=== PATIENT | female | born 1955 | race African-American/Black ===

== ENCOUNTER 2017-12-27 19:58 | Observation (INO) | payer MEDICAID ==
--- NOTE | 2017-12-27 20:20 | RAD REPORT ---
EXAM DESCRIPTION: RAD - Chest Single View - 12/27/2017 8:15 pm CLINICAL HISTORY: COPD, weakness, flu-like symptoms COMPARISON: November 2015 TECHNIQUE: AP portable chest image was obtained 2010 hours . FINDINGS: Interstitial lung disease is evident similar to the comparison. No peripheral mass or cons olidation. Acute failure is not suspected. Heart and vasculature are normal. No measurable pleural ef fusion and no pneumothorax. No gross bony abnormality seen. No acute aortic findings suspected. IMPRESSION: Chronic interstitial lung disease similar to prior study. No acute finding.
[2017-12-27 20:53] LABS: Urine Blood TRACE (NEG); Urine Glucose NEGATIVE (NEG); Urine Protein NEGATIVE (NEG); Urine Specific Gravity 1.015 (1.005-1.030); Urine pH 8.5 (5.0-7.0)
[2017-12-27 20:56] LABS: Absolute Lymphocytes (CBC) 1.1 K/uL (0.7-4.9); Absolute Monocytes 0.7 K/uL (0.1-1.3); Basophils % 0.4 % (0-1.3); Eosinophils % 2.6 % (0-4.4); Hematocrit 34.7 % (36.0-45.0); Lymphocytes % 18.6 % (15.3-44.8); MCH 27.6 pg (27.0-35.0); MPV 9.5 fL (7.6-11.3); RBC Red Blood Cell Count 3.85 M/uL (3.86-4.86)
[2017-12-27 21:05] LABS: Glucose Level 131 mg/dL (65-120); Lipase 18 U/L (22-51)
[2017-12-27] MEDS ORDERED: METHYLPREDNISOLONE 125 MG INJ ONE (21:05)
[2017-12-27 21:06] LABS: Urine Bacteria <20 /HPF (<20); Urine Culture Reflex Order NOT NEEDED; Urine RBC <5 /HPF (NONE SEEN)
[2017-12-27] MEDS ORDERED: LEVALBUTEROL 1.25 MG/3 ML NEB ONE (21:06)
[2017-12-27 21:11] LABS: ALT/SGPT 14 IU/L (10-60); AST/SGOT 15 IU/L (10-42); Alkaline Phosphatase 57 IU/L (42-121); BUN Blood Urea Nitrogen 6 mg/dL (6-20); Bilirubin Direct 0.1 mg/dL (0-0.2); Bilirubin Total 0.5 mg/dL (0.3-1.2); Protein, Total 7.5 g/dL (6.0-8.3)
[2017-12-27 21:35] LABS: Potassium 3.5 mEq/L (3.6-5.0); Sodium Level 142 mEq/L (135-145)
[2017-12-27 21:39] LABS: Bicarbonate 54 mEq/L (21-31)
[2017-12-27] MEDS ORDERED: NA CHLORIDE 0.9% 500 ML ONE (22:59)
[2017-12-27] MEDS ORDERED: CEFTRIAXONE 1 GM/NS 50 ML 1 GM/50 ML BAG IV SCH (23:00)
--- NOTE | 2017-12-27 23:02 | EDPHYS ---
Physician Documentation [facility] Name: Mila Whiting Age: 62 yrs Sex: Female : 1955 Arrival Date: 12/27/2017 Time: 20:03 Bed 27 Private MD: ED Physician Stephan Estes HPI: 12/27 20:06 This 62 yrs old Black Female presents to ER via Unassigned with complaints of rn generalized weakness, abd pain, diarrhea. 20:06 Reports 2 days of generalized weakness, abd cramping, diarrhea, non-bloody, + chills, rn reports COPD. . Onset: The symptoms/episode began/occurred 2 day(s) ago. Severity of symptoms: At their worst the symptoms were mild in the emergency department the symptoms are unchanged. The patient has experienced similar episodes in the past. The patient has not recently seen a physician. Historical: - Allergies: 20:12 liquid magnesium; bb 20:12 Stadol; bb - Home Meds: 20:12 alprazolam 1 mg Oral tab 1 tab 3 times per day [Active]; amlodipine 5 mg tab 1 tab once bb daily [Active]; prednisone 10 mg oral tab [Active]; metoprolol tartrate 50 mg Oral tab 1 tab 2 times per day [Active]; Proventil Inhl [Active]; fluticasone inhalation inhalation [Active]; promethazine-codeine 6.25-10 mg/5 mL Oral syrp 5 mL every 4 hours [Active]; Butrans transdermal transdermal [Active]; DuoNeb 0.5 mg-3 mg(2.5 mg base)/3 mL Inhl nebu [Active]; - PMHx: 20:12 acid reflux; Anxiety; COPD; Hypertension; bb - PSHx: 20:12 Cholecystectomy; Hernia repair; bb - Immunization history:: Adult Immunizations unknown. - Social history:: Smoking status: Patient/guardian denies using tobacco. - Family history:: not pertinent. - Hospitalizations: : No recent hospitalization is reported. 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 Exam: 20:06 Constitutional: This is a well developed, well nourished patient who is awake, alert, rn and in no acute distress. Head/Face: Normocephalic, atraumatic. Eyes: Pupils equal round and reactive to light, extra-ocular motions intact. Lids and lashes normal. Conjunctiva and sclera are non-icteric and not injected. Cornea within normal limits. Periorbital areas with no swelling, redness, or edema. ENT: dry MM, no stridor Neck: Trachea midline, no thyromegaly or masses palpated, and no cervical lymphadenopathy. Supple, full range of motion without nuchal rigidity, or vertebral point tenderness. No Meningismus. Cardiovascular: Regular rate and rhythm with a normal S1 and S2. No gallops, murmurs, or rubs. Normal PMI, no JVD. No pulse deficits. Respiratory: mild tachypnea, faint exp wheezing, no retractions Abdomen/GI: soft, + small superior Vital Signs: 19:55 BP 172 / 96; Pulse 112; Resp 22 S; Temp 99.1(O); Pulse Ox 100% on 5 lpm NC; Weight bb 78.02 kg (R); Height 5 ft. 1 in. (154.94 cm) (R); 21:49 BP 163 / 91; Pulse 114; Resp 22; Pulse Ox 99% on 5 lpm NC; rk2 23:15 BP 146 / 79; Pulse 103; Resp 20; Pulse Ox 99% on R/A; rk2 19:55 Body Mass Index 32.50 (78.02 kg, 154.94 cm) bb MDM: 20:03 Patient medically screened. rn 22:59 Data reviewed: vital signs, nurses notes, lab test result(s), radiologic studies, CT rn scan, and as a result, I will admit patient. Counseling: I had a detailed discussion with the patient and/or guardian regarding: the historical points, exam findings, and any diagnostic results supporting the discharge/admit diagnosis, lab results, radiology results, the need for further work-up and treatment in the hospital. Response to treatment: the patient's symptoms have mildly improved after treatment, and as a result, I will admit patient. Admission orders: after a detailed discussion of the patient's condition and case, the admit orders are written by me. ED course: Pt still tachycardic, weak, + non-bloody diarrhea, no acute findings on ct abdomen, will obs overnight in hospital to Dr. Krishnan.. 12/27 20:04 Order name: Blood Culture Adult (2) 12/27 20:04 Order name: BMP; Complete Time: 21:47 rn 12/27 20:04 Order name: BNP; Complete Time: 21:47 rn 12/27 20:04 Order name: CBC with Diff; Complete Time: 21:12/27 20:04 Order name: Hepatic Function; Complete Time: :47 12/27 20:04 Order name: Lipase; Complete Time: :47 12/27 20:04 Order name: XRAY CXR (1 view); Complete Time: 20:30 12/27 20:04 Order name: Troponin (emerg Dept Use Only); Complete Time: 21:12/27 20:04 Order name: Urine Culture 12/27 20:04 Order name: Urine Microscopic Only; Complete Time: 21:12/27 20:04 Order name: Flu; Complete Time: :47 12/27 20:04 Order name: Procalcitonin; Complete Time: :47 12/27 20:05 Order name: CT Abd/Pelvis - W/Contrast 12/27 20:52 Order name: Urine Dipstick--Ancillary (enter results); Complete Time: 20:54 rg2 12/27 20:04 Order name: EKG; Complete Time: 20:05 12/27 20:04 Order name: Cardiac monitoring; Complete Time: 20:36 12/27 20:04 Order name: EKG - Nurse/Tech; Complete Time: 21:25 12/27 20:04 Order name: IV Saline Lock; Complete Time: 20:36 12/27 20:04 Order name: Labs collected and sent; Complete Time: 20:36 12/27 20:04 Order name: O2 Per Protocol; Complete Time: 20:36 12/27 20:04 Order name: O2 Sat Monitoring; Complete Time: 20:36 12/27 20:04 Order name: Urine Dipstick-Ancillary (obtain specimen); Complete Time: 20:51 rn Administered Medications: 21:16 Drug: SOLU-Medrol 125 mg Route: IVP; Site: left antecubital; 12/28 00:42 Follow up: Response: No adverse reaction rk2 12/27 21:16 Drug: Xopenex (3) 1.25 mg Route: Inhalation; 12/28 00:42 Follow up: Response: No adverse reaction rk2 12/27 23:07 Drug: NS 0.9% 500 ml Route: IV; Rate: bolus; Site: left antecubital; rk2 12/28 00:00 Follow up: Response: No adverse reaction; IV Status: Completed infusion rk2 Disposition: 12/27/17 23:01 Hospitalization ordered by Matt Krishnan for Observation. Preliminary diagnosis are Diarrhea, unspecified, Weakness, Dehydration. - Bed requested for Telemetry/MedSurg (observation). - Status is Observation. rk2 - Condition is Stable. - Problem is new. - Symptoms have improved. UTI on Admission? No Signatures: Dispatcher [employer] EDMargie Mccord RN RN bb Nieto, Roman, MD MD rn Kidder, Rhonda, RN RN rk2
--- NOTE | 2017-12-27 23:02 | ER ---
Nurse's Notes [facility] Name: Mila Whiting Age: 62 yrs Sex: Female : 1955 Arrival Date: 12/27/2017 Time: 20:03 Bed 27 Private MD: Diagnosis: Diarrhea, unspecified;Weakness;Dehydration Presentation: 12/27 19:50 Presenting complaint: EMS states: they were toned out for report of pt feeling general bb weakness and flu-like symptoms. Transition of care: patient was not received from another setting of care. Onset of symptoms was December 25, 2017. Initial Sepsis Screen: Does the patient meet any 2 criteria? Altered Mental Status. HR > 90 bpm. Does the patient have a suspected source of infection? No. Patient's initial sepsis screen is negative. Care prior to arrival: Glucose check: 134. 19:50 Method Of Arrival: EMS: [facility] bb 19:50 Acuity: CRISTY 3 bb Triage Assessment: 19:55 General: Appears in no apparent distress. obese, Behavior is calm, cooperative. rk2 19:55 Pain: Complains of pain in ABD pain only on palpation. Neuro: Level of Consciousness is rk2 alert, obeys commands, Oriented to person, place, situation. Cardiovascular: Rhythm is regular. Respiratory: Reports cough that is productive, Airway is patent Respiratory effort is even, unlabored, Respiratory pattern is regular, symmetrical. GI: Abdomen is obese. Derm: Skin is pink, warm \T\ dry. Historical: - Allergies: 20:12 liquid magnesium; bb 20:12 Stadol; bb - Home Meds: 20:12 alprazolam 1 mg Oral tab 1 tab 3 times per day [Active]; amlodipine 5 mg tab 1 tab once bb daily [Active]; prednisone 10 mg oral tab [Active]; metoprolol tartrate 50 mg Oral tab 1 tab 2 times per day [Active]; Proventil Inhl [Active]; fluticasone inhalation inhalation [Active]; promethazine-codeine 6.25-10 mg/5 mL Oral syrp 5 mL every 4 hours [Active]; Butrans transdermal transdermal [Active]; DuoNeb 0.5 mg-3 mg(2.5 mg base)/3 mL Inhl nebu [Active]; - PMHx: 20:12 acid reflux; Anxiety; COPD; Hypertension; bb - PSHx: 20:12 Cholecystectomy; Hernia repair; bb - Immunization history:: Adult Immunizations unknown. - Social history:: Smoking status: Patient/guardian denies using tobacco. - Family history:: not pertinent. - Hospitalizations: : No recent hospitalization is reported. Screenin:55 Abuse screen: Denies threats or abuse. rk2 19:55 Nutritional screening: No deficits noted. Tuberculosis screening: No symptoms or risk rk2 factors identified. Fall Risk Secondary diagnosis (15 points) Ambulatory Aid- Crutches/Cane/Walker (15 pts). Gait- Weak (10 pts.). Mental Status- Overestimates/Forgets Limitations (15 pts.). Assessment: 22:10 Reassessment: Pt. taken to CT on stretcher by tech. rk2 22:25 Reassessment: Pt. returned from CT. rk2 22:38 Reassessment: Pt. appears to be sleeping in room \T\ this time... appears to be in no rk2 obvious distress. No needs voiced. 12/28 00:33 Reassessment: called report to receiving CARLOS Wilson. Pt. Iv noted to have infiltrated, rk2 removed. Vital Signs: 12/27 19:55 BP 172 / 96; Pulse 112; Resp 22 S; Temp 99.1(O); Pulse Ox 100% on 5 lpm NC; Weight bb 78.02 kg (R); Height 5 ft. 1 in. (154.94 cm) (R); 21:49 BP 163 / 91; Pulse 114; Resp 22; Pulse Ox 99% on 5 lpm NC; rk2 23:15 BP 146 / 79; Pulse 103; Resp 20; Pulse Ox 99% on R/A; rk2 19:55 Body Mass Index 32.50 (78.02 kg, 154.94 cm) bb ED Course: 19:55 Arm band placed on Patient placed in an exam room, on a stretcher, on nail kegger, bb on pulse oximetry. 20:03 Patient arrived in ED. rn 20:03 Stephan Estes MD is Attending Physician. rn 20:05 Michelle Figueroa RN is Primary Nurse. rk2 20:09 Triage completed. bb 20:14 X-ray completed. Portable x-ray completed in exam room. Patient tolerated procedure la2 well. 20:15 XRAY CXR (1 view) In Process Unspecified. EDMS 20:15 Patient has correct armband on for positive identification. Bed in low position. Call bb light in reach. Side rails up X2. x ray technician on. Pulse ox on. NIBP on. 21:43 Notified ED physician of a critical lab result(s). Cl 83, CO2 54 Dr Estes notified no bb new orders received. 22:48 CT Abd/Pelvis - W/Contrast In Process Unspecified. EDMS 23:01 Matt Krishnan MD is Hospitalizing Provider. rn 12/28 01:15 No provider procedures requiring assistance completed. Patient admitted, IV remains in rk2 place. Administered Medications: 12/27 21:16 Drug: SOLU-Medrol 125 mg Route: IVP; Site: left antecubital; bb 12/28 00:42 Follow up: Response: No adverse reaction rk2 12/27 21:16 Drug: Xopenex (3) 1.25 mg Route: Inhalation; bb 12/28 00:42 Follow up: Response: No adverse reaction rk2 12/27 23:07 Drug: NS 0.9% 500 ml Route: IV; Rate: bolus; Site: left antecubital; rk2 12/28 00:00 Follow up: Response: No adverse reaction; IV Status: Completed infusion rk2 Outcome: 12/27 23:01 Decision to Hospitalize by Provider. rn 12/28 01:15 Admitted to Med/surg accompanied by tech. rk2 Condition: good Instructed on the need for admit. 01:16 Patient left the ED. rk2 Signatures: Dispatcher [employer] EDFL Margie Burrows RN RN bb Nieto, Roman, MD MD rn Ardoin, Leslie la Michelle Figueroa RN RN rk2 Corrections: (The following items were deleted from the chart) 12/27 20:15 20:12 BP 172 / 96; Pulse 112bpm; Resp 22bpm; Spontaneous; Pulse Ox 100% 5 lpm Nasal bb Cannula; Temp 99.1F Oral; 78.02 kg Reported; Height 5 ft. 1 in. Reported; BMI: 32.5; bb
[2017-12-27] MEDS ORDERED: ACETAMINOPHEN 500 MG TAB PO PRN (23:45)
[2017-12-27] MEDS ORDERED: ONDANSETRON 4 MG/2 ML VIAL IV PRN (23:45)
[2017-12-27] MEDS ORDERED: NA CHLORIDE 0.9% 1,000 ML IV SCH (23:45)
[2017-12-28] MEDS: IPRATROPIUM BROM 0.5MG/2.5ML NEB SCH ×4 (01:32→20:14)
[2017-12-28] MEDS: ALBUTEROL 2.5 MG/3 ML NEB SOL NEB SCH ×4 (01:33→20:14)
[2017-12-28 01:38] VITALS: BMI 30.6
[2017-12-28] MEDS ORDERED: CEFTRIAXONE/SWI 1gm 1 GM/10 ML SYR ONE (01:50)
[2017-12-28] MEDS: ALPRAZOLAM 1 MG TABLET PO PRN ×2 (01:58→21:04)
[2017-12-28] MEDS: METHYLPREDNISOLONE 40 MG INJ IV SCH ×2 (02:00→09:53)
[2017-12-28 06:21] LABS: ALT/SGPT 13 IU/L (10-60); AST/SGOT 18 IU/L (10-42); Albumin 3.8 g/dL (3.2-5.5); Alkaline Phosphatase 60 IU/L (42-121); BUN Blood Urea Nitrogen 5 mg/dL (6-20); Bilirubin Total 0.4 mg/dL (0.3-1.2); Glucose Level 193 mg/dL (65-120); Magnesium 1.5 mg/dL (1.8-2.5); Phosphorus 1.4 mg/dL (2.5-4.3); Protein, Total 7.2 g/dL (6.0-8.3)
[2017-12-28 06:24] LABS: Potassium 4.1 mEq/L (3.6-5.0); Sodium Level 142 mEq/L (135-145)
[2017-12-28 06:30] LABS: Bicarbonate 51 mEq/L (21-31)
--- NOTE | 2017-12-28 06:38 | P.HP ---
Certification for Inpatient Patient admitted to: Observation With expected LOS: <2 Midnights Patient will require the following post-hospital care: None Practitioner: I am a practitioner with admitting privileges, knowledge of patient current condition, hospital course, and medical plan of care. Services: Services provided to patient in accordance with Admission requirements found in Title 42 Section 412.3 of the Code of Federal Regulations Patient History Date of Service: 12/27/17 Reason for admission: Diarrhea; generalized weakness; dyspnea History of Present Illness: Patient is a 52-year-old female who was admitted to the hospital with generalized weakness. Patient has been having abdominal pain and diarrhea for the last 24-48 hr. Her symptoms were getting worse and she was getting short of breath. Patient has chronic obstructive lung disease. She did have absent were she became short of breath overnight. We put her back on her O2 and got her in bed and she improved. Will go ahead and treat her with IV antibiotics and pulmonary to see her in the morning. Possible discharge home in 24-48 hr. Allergies butorphanol tartrate [From Stadol] Allergy (Severe, Verified 12/28/17 01:37) seizures liquid magnesium Allergy (Severe, Uncoded 12/28/17 06:12) Shortness of breath Home Medications: Alprazolam [Xanax*] 1 mg PO TIDP PRN 08/12/12 Amlodipine Besylate [Norvasc] 5 mg PO [id number] 08/12/12 Pantoprazole Sodium [Protonix] 20 mg PO DAILY 08/12/12 Docusate Sodium [Stool Softener] 100 mg PO DAILY 11/09/15 Albuterol Sulfate [Albuterol Sulfate 0.083% Neb Soln] 2.5 mg IH Q4H PRN #120 units 12/21/15 Aspirin [Aspirin EC 81 MG] 81 mg PO DAILY 07/02/17 Budesonide/Formoterol Fumarate [Symbicort 160-4.5 Mcg Inhaler] 2 puff IH BID 10/17 Buprenorphine [Butrans] 1 each TD EVERY 7TH DAY 07/02/17 Fluticasone Propionate [Flonase Allergy Relief] 9.9 ml NS DAILY 07/02/17 Prednisone [Deltasone] 10 mg PO DAILY 07/02/17 Ipratropium/Albuterol Sulfate [Iprat-Albut 0.5-3(2.5) mg/3 ml] 3 ml IH QID 10/08 Hydrocodone Bit/Acetaminophen [[place] 10-325 Tablet] 1 each PO Q8H PRN 12/28/17 Metoprolol Tartrate 50 mg PO BID 12/28/17 Promethazine HCl/Codeine [Promethazine-Codeine Syrup] 1 tsp PO Q4H PRN 12/28/17 - Past Medical/Surgical History Diabetic: No -: Hypertension -: Hepatitis C -: COPD -: Anxiety -: Hernia -: home 02 -: Cholecystectomy -: Right ankle surgery -: Hernia Repair - Family History Father Family History: Reviewed- Non-Contributory - Social History Smoking Status: Former smoker Alcohol use: No CD- Drugs: Yes Caffeine use: Yes Place of Residence: Home Review of Systems 10-point ROS is otherwise unremarkable Physical Examination - Vital Signs Temperature: 98 F Blood Pressure: 111/62 Pulse: 103 Respirations: 20 Pulse Ox (%): 100 - Physical Exam General: Alert, In no apparent distress, Oriented x3 HEENT: Atraumatic, PERRLA, Mucous membr. moist/pink, EOMI, Sclerae nonicteric Neck: Supple, 2+ carotid pulse no bruit, No LAD, Without JVD or thyroid abnormality Respiratory: Diminished, Expiratory wheezes Cardiovascular: Regular rate/rhythm, Normal S1 S2, Systolic murmur Gastrointestinal: Normal bowel sounds, Soft and benign, Non-distended, No rebound, No guarding, Tenderness Musculoskeletal: No clubbing, No swelling, No tenderness Integumentary: No rashes Neurological: Normal gait, Normal speech, Normal strength at 5/5 x4 extr, Normal tone, Sensation intact, Cranial nerves 3-12 intact, Normal affect Lymphatics: No axilla or inguinal lymphadenopathy - Studies Laboratory Data (last 24 hrs) 12/27/17 20:29: WBC 6.0, Hgb 10.6 L, Hct 34.7 L, Plt Count 182 12/27/17 20:29: B-Natriuretic Peptide < 10 12/27/17 20:29: Sodium 142, Potassium 3.5 L, BUN 6, Creatinine 0.36 L, Glucose 131 H, Total Bilirubin 0.5, AST 15, ALT 14, Alkaline Phosphatase 57, Lipase 18 L Microbiology Data (last 24 hrs): 12/27/17 20:30 Nasopharnyx Influenza Type A Antigen Screen - Final 12/27/17 20:30 Nasopharnyx Influenza Type B Antigen Screen - Final Assessment & Plan - Problems (Diagnosis) (1) Abdominal pain Current Visit: Yes Status: Acute (2) Diarrhea Current Visit: Yes Status: Acute (3) Anxiety Current Visit: No Status: Acute (4) COPD (chronic obstructive pulmonary disease) Current Visit: No Status: Acute (5) Hypertension Current Visit: No Status: Acute (6) Hypoxia Onset Date: 12/11/15 Current Visit: No Status: Acute - Plan 1. Continue with IV hydration 2. Continue with IV antibiotics 3. Continue with pain control 4. NPO 5. GI & general surgery consultation; outpatient colonoscopy in 6-12 weeks 6. Serial H&H, and we will monitor CBC, BMP, LFTs and lipase along with electrolytes. 7. GI and DVT prophylaxis 8. Albuterol and Atrovent nebs along with IV steroids 9. GI and DVT prophylaxis - Advance Directives Does patient have a Living Will: No Does patient have a Durable POA for Healthcare: No
[2017-12-28] MEDS: Magnesium Sulfate 2gm IVPB 2 G/50 ML BAG IV ONE ×2 (06:39→06:48)
[2017-12-28 07:16] LABS: Absolute Lymphocytes (CBC) 0.2 K/uL (0.7-4.9); Absolute Monocytes 0.1 K/uL (0.1-1.3); Absolute Neutrophil 6.1 K/uL (1.8-8.0); Basophils % 0.2 % (0-1.3); Eosinophils % 0.1 % (0-4.4); Hematocrit 35.8 % (36.0-45.0); Lymphocytes % 3.3 % (15.3-44.8); MCH 27.1 pg (27.0-35.0); MCV 89.9 fL (80-100); MPV 10.3 fL (7.6-11.3); Monocytes % 0.9 % (3.3-12.3); RBC Red Blood Cell Count 3.99 M/uL (3.86-4.86)
--- NOTE | 2017-12-28 07:16 | EKG ---
Test Date: 2017-12-27 Test Time: 20:57:28 Printing Plate Clerk: CALVIN MEASUREMENT RESULTS: Intervals: Rate: 105 NE: 172 QRSD: 88 QT: 338 QTc: 446 Hagan: P: 81 NE: 172 QRS: 76 T: 76 INTERPRETIVE STATEMENTS: Sinus tachycardia with occasional premature ventricular complexes Biatrial enlargement Left ventricular hypertrophy Nonspecific ST and T wave abnormality Abnormal ECG Compared to ECG 10/08/2017 14:30:59 Ventricular premature complex(es) now present Sinus rhythm no longer present Electronically Signed On 12-28-17 07:15:24 CDT by Faraz Vera
[2017-12-28 07:53] LABS: Blood Morphology Comment NOTED (NOT SEEN); Platelet Estimate ADEQ; Stomatocytes 2+; Urine White Blood Cell Casts OK
--- NOTE | 2017-12-28 08:12 | RAD REPORT ---
EXAM DESCRIPTION: CT - Abdomen Pelvis W Contrast - 12/27/2017 10:48 pm CLINICAL HISTORY: Abdominal pain, cramping, flu-like symptoms, prior cholecystectomy and hernia repa ir A preliminary written report was provided at the time of the study, and the report was reviewed prio r to final dictation. COMPARISON: CT study August 2014 TECHNIQUE: Biphasic, helical CT imaging of the abdomen and pelvis was performed following 100 ml non -ionic IV contrast. Oral contrast was given. All CT scans are performed using dose optimization technique as appropriate and may include automated exposure control or mA/KV adjustment according to patient size. FINDINGS: No suspicious findings in the lung bases. Liver size is normal. There is a nodular liver capsule present. No focal liver parenchymal process se en. No splenomegaly or splenic abnormality seen. Cholecystectomy clips are present. No abnormal bilia ry tree dilatation. Common bile duct is 8 mm which is normal range for a post cholecystectomy patient . Extrahepatic biliary tree has decreased in prominence since 2014. No solid mass of the pancreas identified. No pancreatitis findings. In the head of the pancreas an 11 x 10 mm cystic masses identified. In the posterior body of the pancreas a 15 x 11 millimeter cystic mass is present believed to be summation of 2 abutting smaller cysts. At the tip of the pancreatic ta il a 12 millimeter x 12 millimeter cyst is identified. The head and tail findings are new or enlarged from 2015. The abutting cyst in the body of the pancreas are not clearly different. Pancreatic duct overall is diminished in prominence. Symmetric renal function is seen with no hydronephrosis or suspicious renal mass. No pyelonephritis o r acute renal parenchymal process. Small cyst is present in the lateral right mid kidney. No adrenal abnormality. No urinary bladder abnormality seen. Uterus is again noted to contain densely calcified fibroids. No progressive uterine finding. No ovarian abnormality seen. No dilated bowel loops or bowel wall thickening. No appendicitis or acute GI process seen. No free ai r, free fluid or inflammatory stranding. No bulky lymphadenopathy or other soft tissue mass. The pat ient has a 2.7 centimeter supraumbilical ventral hernia with a narrow neck. This contains only fat. N o active process. There is a additional very small 12 millimeter fat only umbilical hernia. No suspicious bony findings. IMPRESSION: No appendicitis or other surgically emergent finding. Cystic masses in the head and tail of the pancreas up to 12 mm in size are new or enlarged from 2014. Cystic mass in the body of the pancreas has not clearly changed. Pancreatic duct is diminished sligh tly in prominence. Status post cholecystectomy with decreasing prominence of the biliary tree. Liver shows evidence for cirrhosis or diffuse hepatic parenchymal disease. Cystic neoplastic process such as IPMN would be a consideration in a patient with enlarging cystic ma sses of the pancreas. Followup contrast MRI imaging using pancreatic protocol could be performed. Al ternatively CT re-evaluation in 4-6 months could be performed. Umbilical and supraumbilical hernias not clearly different from prior imaging. No active process.
[2017-12-28] MEDS ORDERED: PROMETH/COD 6.25/10MG SYRUP 5ML PO PRN (08:55)
[2017-12-28] MEDS ORDERED: POTASS/SODIUM PHOSPHATE 1 PKT POWD.PACK PO ONE (09:00)
[2017-12-28] MEDS ORDERED: METRONIDAZOLE 500mg IVPB 500 MG/100 ML BAG IV SCH (09:00)
[2017-12-28] MEDS: HYDROCODONE/APAP 10/325 TAB PO PRN ×2 (09:47→16:55)
[2017-12-28] MEDS: PANTOPRAZOLE 40MG TABLET PO SCH (09:53)
[2017-12-28] MEDS: ASPIRIN EC 81 MG TAB PO SCH (09:53)
[2017-12-28] MEDS: ENOXAPARIN 40 MG/0.4 ML SQ SCH (09:54)
[2017-12-28] MEDS: METOPROLOL TAR 50 MG TAB PO SCH ×2 (10:07→20:53)
--- NOTE | 2017-12-28 10:28 | RAD REPORT ---
EXAM DESCRIPTION: Roby Pa And Lat (2 Views)12/28/2017 9:06 am CLINICAL HISTORY: Shortness of breath COMPARISON: December 27, 2017 FINDINGS: Mild interstitial lung opacities are unchanged and may be chronic. The heart is mildly enl arged IMPRESSION: No acute abnormalities displayed
[2017-12-28 11:52] LABS: Arterial Blood Carboxyhemoglob 1.8 % (0-1.5); Blood Gas Oxyhemoglobin 90.1 % (94-97); Blood O2 Saturation 93.3 % (92-98.5)
[2017-12-28] MEDS ORDERED: ONDANSETRON 4 MG (ODT) TAB PO PRN (15:15)
--- NOTE | 2017-12-28 15:23 | P.PN ---
Subjective Date of Service: 12/28/17 Primary Care Provider: none Chief Complaint: Diarrhea; generalized weakness; dyspnea Subjective: Other (Patient with no significant diarrhea. Weakness improved. Shortness of breath also improved. Patient on nasal cannula.) Physical Examination - Vital Signs Temperature: 98.8 F Blood Pressure: 151/74 Pulse: 119 Respirations: 81 Pulse Ox (%): 96 - Physical Exam General: Alert, In no apparent distress, Oriented x3, Cooperative HEENT: Atraumatic Neck: Supple Respiratory: Expiratory wheezes (Bilateral), Other (Poor inspiration and expiration) Cardiovascular: Normal pulses, Regular rate/rhythm Gastrointestinal: Normal bowel sounds, Soft and benign, Non-distended, No tenderness, No masses, No rebound, No guarding Musculoskeletal: No erythema, No tenderness, No warmth Integumentary: No tenderness/swelling, No erythema, No warmth, No cyanosis Neurological: Normal speech, Normal strength at 5/5 x4 extr, Normal tone - Studies Laboratory Data (last 24 hrs) 12/27/17 20:29: WBC 6.0, Hgb 10.6 L, Hct 34.7 L, Plt Count 182 12/27/17 20:29: B-Natriuretic Peptide < 10 12/27/17 20:29: Sodium 142, Potassium 3.5 L, BUN 6, Creatinine 0.36 L, Glucose 131 H, Total Bilirubin 0.5, AST 15, ALT 14, Alkaline Phosphatase 57, Lipase 18 L Microbiology Data (last 24 hrs): 12/27/17 20:30 Nasopharnyx Influenza Type A Antigen Screen - Final 12/27/17 20:30 Nasopharnyx Influenza Type B Antigen Screen - Final Medications List Reviewed: Yes Assessment & Plan - Problems (Diagnosis) (1) Cystic mass of pancreas Current Visit: Yes Status: Acute Plan: CT scan shows cystic masses to the head and tail of pancreas. This is new and enlarged since 1015. Will check MRI to further assess. Patient without any significant nausea or vomiting. Abdominal pain much improved. Diarrhea improved. Will continue with antibiotic therapy. Will provide IV fluids. Encourage oral intake. Possible discharge tomorrow. Patient also with COPD exacerbation. (2) GERD (gastroesophageal reflux disease) Current Visit: Yes Status: Chronic Plan: Will continue with PPI. Qualifiers: Esophagitis presence: without esophagitis Qualified Code(s): K21.9 - Gastro -esophageal reflux disease without esophagitis (3) COPD (chronic obstructive pulmonary disease) Onset Date: 12/28/17 Current Visit: Yes Status: Acute Plan: Will continue with COPD medication. Patient with advanced disease with home oxygen. Pulmonology consulted to further assess. Anticipate possible discharge as early as tomorrow if much improved. Qualifiers: COPD type: COPD with acute exacerbation Qualified Code(s): J44.1 - Chronic obstructive pulmonary disease with (acute) exacerbation (4) Diarrhea Onset Date: 12/28/17 Current Visit: Yes Status: Acute Plan: This may be infectious versus food related. Patient reports taking food that upset her stomach. This has improved. Will monitor closely. Patient on antibiotic therapy. Qualifiers: Diarrhea type: unspecified type Qualified Code(s): R19.7 - Diarrhea, unspecified (5) Hypertension Onset Date: 12/28/17 Current Visit: Yes Status: Chronic Plan: Will continue with medication. Qualifiers: Hypertension type: essential hypertension Qualified Code(s): I10 - Essential (primary) hypertension (6) Dehydration Current Visit: Yes Status: Acute Plan: Will continue with IV fluids and encourage oral intake. (7) Anemia Current Visit: Yes Status: Chronic Plan: Will check iron and B12 studies. Qualifiers: Anemia type: unspecified type Qualified Code(s): D64.9 - Anemia, unspecified (8) Hypomagnesemia Current Visit: Yes Status: Acute Plan: Will monitor and replace appropriately. Replacement protocol in place. Discharge Plan: Home Plan to discharge in: 24 Hours Time Spent Managing Pts Care (In Minutes): 55
[2017-12-28] MEDS ORDERED: HYDROCODONE/APAP 10/325 TAB PO PRN (16:51)
[2017-12-28] MEDS: NA CHLORIDE 0.9% 1,000 ML IV SCH ×2 (18:14→22:54)
[2017-12-28] MEDS: DULERA 100/5 (MOMETASONE/FORMOTEROL) INHALER IH SCH (20:52)
[2017-12-28] MEDS: predniSONE 20 MG TAB PO SCH (20:53)
[2017-12-28] MEDS ORDERED: CEFTRIAXONE/SWI 1gm 1 GM/10 ML SYR IV SCH (21:00)
[2017-12-28] MEDS ORDERED: metroNIDAZOLE 500 MG TABLET PO SCH (21:00)
[2017-12-28] MEDS ORDERED: CEFTRIAXONE 1 GM/50 ML BAG IV SCH (21:00)
[2017-12-29] MEDS: ALBUTEROL 2.5 MG/3 ML NEB SOL NEB SCH ×3 (02:38→14:32)
[2017-12-29] MEDS: IPRATROPIUM BROM 0.5MG/2.5ML NEB SCH ×3 (02:38→14:32)
[2017-12-29 05:20] LABS: Absolute Lymphocytes (CBC) 0.7 K/uL (0.7-4.9); Absolute Monocytes 0.6 K/uL (0.1-1.3); Absolute Neutrophil 8.4 K/uL (1.8-8.0); Lymphocytes % 7.1 % (15.3-44.8); MCH 27.6 pg (27.0-35.0); MCV 88.3 fL (80-100); RBC Red Blood Cell Count 3.96 M/uL (3.86-4.86)
[2017-12-29 05:57] LABS: ALT/SGPT 13 IU/L (10-60); AST/SGOT 24 IU/L (10-42); Albumin 3.8 g/dL (3.2-5.5); Alkaline Phosphatase 55 IU/L (42-121); BUN Blood Urea Nitrogen 8 mg/dL (6-20); Bilirubin Total 0.3 mg/dL (0.3-1.2); Ferritin 26.5 ng/ml (11.0-306.8); Glucose Level 137 mg/dL (65-120); Magnesium 1.6 mg/dL (1.8-2.5); Protein, Total 7.1 g/dL (6.0-8.3); Transferrin 217 mg/dL (192-382)
[2017-12-29 05:59] LABS: Sodium Level 140 mEq/L (135-145)
[2017-12-29] MEDS ORDERED: AMLODIPINE 5 MG TAB PO SCH (06:00)
[2017-12-29 06:02] LABS: Bicarbonate 42 mEq/L (21-31)
[2017-12-29] MEDS ORDERED: MAGNESIUM SULFATE 1 gm IVPB 1 GM/100 ML BAG IV ONE (06:16)
[2017-12-29] MEDS: NA CHLORIDE 0.9% 1,000 ML IV SCH (06:18)
[2017-12-29] MEDS: PANTOPRAZOLE 40MG TABLET PO SCH (06:18)
--- NOTE | 2017-12-29 07:45 | P.CNS ---
Date of Consult: 12/28/17 Primary Care Provider: none Chief Complaint: Diarrhea; generalized weakness; dyspnea History of Present Illness: Patient is 62 years of age with a history of COPD admitted with weakness some diarrhea of flu-like symptoms denies any cough sputum or hemoptysis altered mental status patient's bicarbonate level was elevated hypoxic hypercapnic. Compliant with all her medications No fever or chills Allergies butorphanol tartrate [From Stadol] Allergy (Severe, Verified 12/28/17 01:37) seizures magnesium sulfate Allergy (Severe, Verified 12/28/17 06:54) Anaphylaxis Home Medications: Alprazolam [Xanax*] 1 mg PO TIDP PRN 08/12/12 Amlodipine Besylate [Norvasc] 5 mg PO [id number] 08/12/12 Pantoprazole Sodium [Protonix] 20 mg PO DAILY 08/12/12 Docusate Sodium [Stool Softener] 100 mg PO DAILY 11/09/15 Albuterol Sulfate [Albuterol Sulfate 0.083% Neb Soln] 2.5 mg IH Q4H PRN #120 units 12/21/15 Aspirin [Aspirin EC 81 MG] 81 mg PO DAILY 07/02/17 Budesonide/Formoterol Fumarate [Symbicort 160-4.5 Mcg Inhaler] 2 puff IH BID 10/17 Buprenorphine [Butrans] 1 each TD EVERY 7TH DAY 07/02/17 Fluticasone Propionate [Flonase Allergy Relief] 9.9 ml NS DAILY 07/02/17 Prednisone [Deltasone] 10 mg PO DAILY 07/02/17 Ipratropium/Albuterol Sulfate [Iprat-Albut 0.5-3(2.5) mg/3 ml] 3 ml IH QID 10/08 Hydrocodone Bit/Acetaminophen [[place] 10-325 Tablet] 1 each PO Q8H PRN 12/28/17 Metoprolol Tartrate 50 mg PO BID 12/28/17 Promethazine HCl/Codeine [Promethazine-Codeine Syrup] 1 tsp PO Q4H PRN 12/28/17 - Past Medical/Surgical History Diabetic: No -: Hypertension -: Hepatitis C -: COPD -: Anxiety -: Hernia -: home 02 -: Cholecystectomy -: Right ankle surgery -: Hernia Repair - Family History Father Family History: Reviewed- Non-Contributory - Social History Smoking Status: Unknown if ever smoked Alcohol use: No CD- Drugs: Yes Caffeine use: Yes Place of Residence: Home Review of Systems 10-point ROS is otherwise unremarkable General: Weakness Respiratory: Cough, Shortness of Breath Physical Examination Temp Pulse Resp BP Pulse Ox 97.6 F 91 H 18 127/63 91 12/29/17 04:00 12/29/17 06:18 12/29/17 04:00 12/29/17 06:18 12/29/17 04:00 General: Alert, Oriented x3, Cooperative Neck: Supple Respiratory: Clear to auscultation bilaterally, Diminished Cardiovascular: No edema, Regular rate/rhythm, Normal S1 S2 Gastrointestinal: Normal bowel sounds, Soft and benign - Problems (1) Respiratory failure Current Visit: Yes Status: Acute Plan: Patient is 62 years of age with a history of terminal COPD admitted with worsening shortness of breath some abdominal discomfort diarrhea bicarbonate does LA elevated probably from volume depletion continue with IV fluids plan for discharge patient does not take any diuretics oxygenation satisfactory Qualifiers: Chronicity: acute on chronic (2) Cystic mass of pancreas Current Visit: Yes Status: Acute Plan: Cystic mass in the pancreas in really not a candidate for any surgical intervention chemo radiation in case if his cancer very but poor baseline status
[2017-12-29] MEDS: ASPIRIN EC 81 MG TAB PO SCH (08:37)
[2017-12-29] MEDS: predniSONE 20 MG TAB PO SCH (08:37)
[2017-12-29] MEDS: ALPRAZOLAM 1 MG TABLET PO PRN (08:37)
[2017-12-29] MEDS: METOPROLOL TAR 50 MG TAB PO SCH (08:37)
[2017-12-29] MEDS: ENOXAPARIN 40 MG/0.4 ML SQ SCH (08:37)
[2017-12-29] MEDS: DULERA 100/5 (MOMETASONE/FORMOTEROL) INHALER IH SCH (08:43)
[2017-12-29] MEDS ORDERED: FLUTICASONE 50MCG NASAL SPRAY NAS SCH (09:00)
[2017-12-29] MEDS ORDERED: LORazepam 2 MG/ML VIAL IV ONE (11:23)
--- NOTE | 2017-12-29 12:46 | RAD REPORT ---
EXAM DESCRIPTION: MRIAbdomen CLINICAL HISTORY: Pancreatic masses. COMPARISON: CT 12/27/2017 FINDINGS: A mildly nodular contour to the liver parenchyma is seen suggesting mild cirrhosis. No deng er lesion seen. Common bile duct is prominent in size as it traverses the pancreatic head maximally measuring 12 mm. No intraluminal filling defect is seen. The gallbladder appears absent. Irregular dilatation of the pancreatic duct is seen throughout its course with several cystic lesions emanating from the pancreatic duct identified. The largest is near the pancreatic neck measures 13 m m. In addition, an area of multiple small cystic lesions adjacent to the pancreatic duct present raghu uring 22 x 11 mm and demonstrating a bunch of grapes appearance. The spleen, adrenal glands and kidneys show no no worrisome finding. Cortical cysts are present in elsy th renal cortices, benign in appearance. Fat containing umbilical hernia is seen. No bulky lymphadenopathy in the abdomen. No free fluid collections or bowel obstruction. IMPRESSION: Irregular pancreatic duct dilatation is seen with multiple dilated pancreatic side branc hes, suggesting underlying chronic pancreatitis. An aggressive enhancing pancreatic mass is not seen. These small cystic lesions could potentially also be small IPMNs. Small bunch of grapes lesion in the midbody of the pancreas measuring 22 x 11 mm has the appearance o f an IPMN. Cholecystectomy with 12 mm common bile duct.
[2017-12-29 16:29] VITALS: O2SAT 90
[2017-12-29 17:27] VITALS: BP 155/87; TEMP 98
--- NOTE | 2017-12-29 18:50 | P.DS ---
Admission Date: 12/27/17 Discharge Date: 12/29/17 Primary Care Provider: none Disposition: ROUTINE DISCHARGE Discharge Condition: FAIR Reason for Admission: Diarrhea; generalized weakness; dyspnea Consultations: Dr Gale Brief History of Present Illness: 52-year-old female who was admitted to the hospital with generalized weakness. Patient has been having abdominal pain and diarrhea for the last 24-48 hr. Her symptoms were getting worse and she was getting short of breath. Patient has chronic obstructive lung disease. She did have absent were she became short of breath overnight. We put her back on her O2 and got her in bed and she improved. Will go ahead and treat her with IV antibiotics and pulmonary to see her in the morning. Hospital Course: Patient was started on IV hydration, antibiotics.Patient was seen by Dr Gale.She had CT done which revealed a cystic pancreatic mass and this was further evaluated with MRI at this time results pending.Infectious screening came back negative. Patients symoptoms improved.She was discharged home to follow up with Dr Gale. Vital Signs/Physical Exam: Temp Pulse Resp BP Pulse Ox 98.0 F 100 H 17 155/87 H 93 12/29/17 16:00 12/29/17 16:00 12/29/17 16:00 12/29/17 16:00 12/29/17 16:00 General: Alert, In no apparent distress, Oriented x3 HEENT: Atraumatic, Normocephalic Neck: Supple Respiratory: Clear to auscultation bilaterally, Normal air movement Cardiovascular: No edema, Normal pulses, Regular rate/rhythm, Normal S1 S2 Gastrointestinal: Normal bowel sounds, Soft and benign, W/out hepatosplenomegaly , No ascites, No tenderness, No masses, No rebound, No guarding Musculoskeletal: No clubbing, No swelling, No contractures, No erythema, No tenderness, No warmth External genitalia: No edema, No lesions Laboratory Data at Discharge: WBC 9.6 K/uL (4.3-10.9) D 12/29/17 04:29 Hgb 10.9 g/dL (12.0-15.0) L 12/29/17 04:29 Hct 35.0 % (36.0-45.0) L 12/29/17 04:29 Plt Count 196 K/uL (152-406) 12/29/17 04:29 Sodium 140 mEq/L (135-145) 12/29/17 04:29 Potassium 4.0 mEq/L (3.6-5.0) 12/29/17 04:29 BUN 8 mg/dL (6-20) 12/29/17 04:29 Creatinine 0.50 mg/dL (0.44-1.00) 12/29/17 04:29 Glucose 137 mg/dL (65-120) H 12/29/17 04:29 Phosphorus 1.7 mg/dL (2.5-4.3) L 12/29/17 04:29 Magnesium 1.6 mg/dL (1.8-2.5) L 12/29/17 04:29 Total Bilirubin 0.3 mg/dL (0.3-1.2) 12/29/17 04:29 AST 24 IU/L (10-42) 12/29/17 04:29 ALT 13 IU/L (10-60) 12/29/17 04:29 Alkaline Phosphatase 55 IU/L (42-121) 12/29/17 04:29 B-Natriuretic Peptide 10 pg/ml (<=100) 12/28/17 04:43 Lipase 18 U/L (22-51) L 12/27/17 20:29 Home Medications: Alprazolam [Xanax*] 1 mg PO TIDP PRN 08/12/12 Amlodipine Besylate [Norvasc] 5 mg PO [id number] 08/12/12 Pantoprazole Sodium [Protonix] 20 mg PO DAILY 08/12/12 Docusate Sodium [Stool Softener] 100 mg PO DAILY 11/09/15 Albuterol Sulfate [Albuterol Sulfate 0.083% Neb Soln] 2.5 mg IH Q4H PRN #120 units 12/21/15 Aspirin [Aspirin EC 81 MG] 81 mg PO DAILY 07/02/17 Budesonide/Formoterol Fumarate [Symbicort 160-4.5 Mcg Inhaler] 2 puff IH BID 10/17 Buprenorphine [Butrans] 1 each TD EVERY 7TH DAY 07/02/17 Fluticasone Propionate [Flonase Allergy Relief] 9.9 ml NS DAILY 07/02/17 Prednisone [Prednisone*] 10 mg PO DAILY 07/02/17 Ipratropium/Albuterol Sulfate [Iprat-Albut 0.5-3(2.5) mg/3 ml] 3 ml IH QID 10/08 Hydrocodone Bit/Acetaminophen [[place] 10-325 Tablet] 1 each PO Q8H PRN 12/28/17 Metoprolol Tartrate 50 mg PO BID 12/28/17 Promethazine HCl/Codeine [Promethazine-Codeine Syrup] 1 tsp PO Q4H PRN 12/28/17 Patient Discharge Instructions: Return to the ER with new or worsening symptoms Diet: Low sodium Activity: Ad zena Followup: Finesse Smith MD [ACTIVE - CAN ADMIT] - (Follow up in office in 2 weeks. Call to schedule an appointment. ) Time spent managing pt's care (in minutes): 35
== END 2017-12-29 19:06 | disposition home or self-care (01) ==
LOC: ER 19:58 → ERHOLD 23:05 → 2ND 12-28 00:20
PROVIDERS: ADMIT Hospitalist; ATTEND Hospitalist
DX: J96.20 Acute and chronic respiratory failure, unspecified whether with hypoxia or hypercapnia (principal); K86.9 Disease of pancreas, unspecified; R06.89 Other abnormalities of breathing; R53.1 Weakness; I10 Essential (primary) hypertension; K21.9 Gastro-esophageal reflux disease without esophagitis; J44.1 Chronic obstructive pulmonary disease with (acute) exacerbation; R19.7 Diarrhea, unspecified; E86.0 Dehydration; D64.9 Anemia, unspecified; E83.42 Hypomagnesemia; F41.9 Anxiety disorder, unspecified; Z86.19 Personal history of other infectious and parasitic diseases; Z79.82 Long term (current) use of aspirin; R10.9 Unspecified abdominal pain
CPT/HCPCS: 36415; 71045; 71046; 74177; 80048; 80053; 80076; 81003; 81015; 82607; 82728; 82805; 83540; 83690; 83735; 83880; 84100; 84145; 84466; 84484; 85025; 87040; 87070; 87086; 87088; 87205; 87804; 93005; 94640; 96361; 96374; 97163; 99285; G0378; J0696; J1650; J2920; J2930; J3475; J7030; J7512; J7606; Q9967

== ENCOUNTER 2019-03-21 07:33 | Day surgery (SDC) | payer OTHER ==
--- OUTSIDE RECORDS SUMMARY | 2019-03-21 07:35 | XMS REPORT | Clinical Summary ---
:1955 Author Organization [facility] Address [address] [place] [address] Care Team Providers Name Role Phone Guille Justice Primary Care Provider Allergies Active Allergy Reactions Severity Noted Date Comments Magnesium Anaphylaxis High 12/27/2018 Liquid form Butorphanol Tartrate Anaphylaxis High 12/27/2018 Medications Medication Sig Dispensed Refills Start Date End Date Status aspirin 81 MG EC Take 81 mg by mouth 0 Active tablet daily. ALPRAZolam (XANAX) Take 0.5 mg by mouth 0 Active 0.5 MG tablet 3 (three) times daily as needed for Anxiety. albuterol Take 2.5 mg by 0 Active (PROVENTIL) 2.5 nebulization every 6 mg/0.5 mL Nebu (six) hours as nebulizer solution needed. predniSONE Take 5 mg by mouth 0 Active (DELTASONE) 5 MG daily. tablet budesonide-formotero Inhale 2 puffs by 0 Active l (SYMBICORT) mouth via inhaler 2 160-4.5 (two) times daily. mcg/actuation inhaler amLODIPine (NORVASC) Take 5 mg by mouth 0 Active 5 MG tablet daily. tiotropium (SPIRIVA) Inhale 18 mcg by 0 Active 18 mcg inhalation mouth via inhaler 2 capsule (two) times daily. HYDROcodone-acetamin Take 1 tablet by 0 Active ophen (NORCO mouth every 8 7.5-325) 7.5-325 mg (eight) hours as per tablet needed for Pain. buprenorphine Place 1 patch onto 0 Active (BUTRANS) 10 the skin every 7 mcg/hour PTWK days. lactulose Take 20 g by mouth 0 Active (CHRONULAC) 10 daily as needed. gram/15 mL (15 mL) solution docusate sodium Take 200 mg by mouth 0 Active (COLACE) 100 MG daily as needed for capsule Constipation. psyllium 0.52 gram Take 0.52 g by mouth 0 Active capsule every 7 days. pantoprazole Take 20 mg by mouth 0 Active (PROTONIX) 20 MG daily. tablet cetirizine (ZYRTEC) Take 10 mg by mouth 0 Active 10 MG tablet daily as needed for Allergies. promethazine-codeine Take 5 mLs by mouth 0 Active (PHENERGAN WITH every 4 (four) hours CODEINE) 6.25-10 as needed for Cough. mg/5 mL syrup gabapentin Take 100 mg by mouth 0 Active (NEURONTIN) 100 MG daily. capsule OXYGEN-AIR DELIVERY by Miscellaneous 0 Active SYSTEMS route. 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 Never 12/27/2018 How many drinks containing alcohol do you have on a typical Not asked day when you are drinking? How often do you have six or more drinks on one occasion? Not asked Sex Assigned at Date Recorded Not on file Job Start Date Occupation Industry Not on file Not on file Not on file Travel History Travel Start Travel End No recent travel history available. Last Filed Vital Signs Vital Sign Reading Time Taken Blood Pressure 116/64 12/28/2018 10:23 AM CDT Pulse 92 12/28/2018 10:23 AM CDT Temperature 36.7 C (98 F) 12/28/2018 10:23 AM CDT Respiratory Rate 16 12/28/2018 10:23 AM CDT Oxygen Saturation 99% 12/28/2018 10:23 AM CDT Inhaled Oxygen Concentration - - Weight 77.2 kg (170 lb 1.6 oz) 12/28/2018 8:01 AM CDT Height 154.9 cm (5' 1") 12/28/2018 8:01 AM CDT Body Mass Index 32.14 12/28/2018 8:01 AM CDT Plan of Treatment Not on file Procedures Procedure Name Priority Date/Time Associated Comments Diagnosis REPORT OF PROCEDURE - 12/28/2018 9:56 ENDOSCOPY URL AM CDT TISSUE EXAM AP Routine 12/28/2018 9:24 Results for this AM CDT procedure are in the results section. MISCELLANEOUS LAB STAT 12/28/2018 9:09 ORDER AM CDT AMYLASE, BODY FLUID Routine 12/28/2018 9:09 Results for this AM CDT procedure are in the results section. FINE NEEDLE ASPIRATE Routine 12/28/2018 9:03 Results for this (FNA) REQUEST AM CDT procedure are in the results section. FINE NEEDLE ASPIRATION AP Routine 12/28/2018 9:03 Results for this BY CLINICIAN AM CDT procedure are in the results section. UPPER ENDOSCOPY,BIOPSY 12/28/2018 8:30 Pancreatic cyst AM CDT Special Needs (LINEAR SCOPE) UPPER ENDOSCOPY,FNA W/ULTRASOUND 12/28/2018 8:30 AM CDT Pancreatic cyst Special Needs (LINEAR SCOPE) after 03/20/2018 Results REPORT OF PROCEDURE - ENDOSCOPY URL (12/28/2018 9:56 AM CDT) Narrative Performed At Tissue Exam (12/28/2018 9:24 AM CDT) Case Report Surgical Pathology Report Case: [id number] [facility] Authorizing Provider:Holly Liang Collected: 12/28/2018 0924 [facility] MD Delores Ordering [facility] Endoscopy Received: 12/28/2018 1253 Services Pathologist: Kurtis Luna MD Specimen:Ampulla DIAGNOSIS PART A AMPULLARY BIOPSY: [facility] PARTIALLY DENUDED NON-NEOPLASTIC SMALL INTESTINAL MUCOSA WITHOUT SIGNIFICANT HISTOPATHOLOGIC ALTERATION. [facility] NEGATIVE FOR DYSPLASIA OR INVASIVE CARCINOMA. Signing Pathologist Direct Phone Line: [phone] CPT Code(s) 76190 [facility] CLINICAL HISTORY Suspected pancreatic lesion [facility] SPECIMEN SOURCE ampulla [facility] GROSS DESCRIPTION The container is labeled [facility] "ampulla" and consists of a [facility] single piece of leung-white tissue measuring 2 x 1 x 1 mm and a single piece of feathery white tissue measuring approximately the same dimension submitted entirely in cassette A. TW/bc MICROSCOPIC DESCRIPTION PERFORMED [facility] Specimen Tissue - Ampulla Performing Organization Address City/State/Zipcode Phone Number [facility] [address] [place] [address] [phone] [facility]ENTER [facility] (12/28/2018 9:09 AM CDT) Scan Result [facility] Specimen Body Fluid Narrative Performed At Performing Organization Address City/State/Zipcode Phone Number [facility] [address] [place], [place] Amylase, body fluid (12/28/2018 9:09 AM CDT) Amylase, Fluid >76410 U/L [facility] Specimen Body Fluid Narrative Performed At Absence of reference range indicates that [facility] normals have not been defined. Assay performance has not been validated for this type of specimen. Performing Organization Address City/[facility]/Zipcode Phone Number [facility] [address] [place] [address] [place] FINE NEEDLE ASPIRATE (FNA) REQUEST (12/28/2018 9:03 AM CDT) Cytology See Separate Report [facility] Specimen Fine Needle Aspirate Performing Organization Address City/[facility]/Zipcode Phone Number [facility] [address] [place] [address] [phone] [place] Fine Needle Aspirate by Clinician (12/28/2018 9:03 AM CDT) Case Report Medical Cytology Report Case: [id number] [facility] Authorizing Provider:Holly Liang Collected: 12/28/2018 0903 [facility] MD Delores Ordering Location[facility] Endoscopy Received: 12/28/2018 1103 Services Pathologist: Salvador Begum MD Specimen:Pancreas DIAGNOSIS PANCREAS CYST FNA BY CLINICIAN (CYTOSPINS AND CELL BLOCK OF ASPIRATE ): [facility] - NEGATIVE FOR MALIGNANCY [facility] - The mucin stain is negative Signing Pathologist Direct Phone Line: [phone] COMMENT The mucin stain is negative and [facility] the control slide shows [facility] positive staining as expected. CPT Code(s) 77221, 77773, 58449 [facility] CLINICAL DATA Four cysts in the pancreas, [facility] largest measuring 2.0 cm [facility] SPECIMEN SOURCE PANCREAS CYST FNA [facility] GROSS DESCRIPTION 27 mls in cytorich red; 4 cytospins, 1 mucin stain, cell block [facility] Collected: [id number] [facility] Received: [id number] SPECIAL STUDIES The interpretation of this case included the use of immunohistochemistry or special stains. [facility] Immunohistochemistry technical testing was performed at [facility], Pathology Laboratory where it was developed and its performance characteristics were determined. It has not be en cleared or approved by the U.S. Food and Drug Administration. The FDA has determined that such clearance or approval is not necessary. The test is used for clinical purposes. It should not be regarde d as investigational or for research. This laboratory is certified under the Clinical Laboratory Improvement Amendments of 1988 (CLIA-88) as qualified to perform high complexity clinical laboratory testing. Gross assessment was [facility] performed at [place], Department [facility], [address] [place] [address], [place] [address], Technical component was [facility] performed at [place], Department [facility], [address] [place] [address], [place] [address], Professional component [facility] was performed at Center, Department of [facility] Pathology, [address] [facility], [place] [address], Specimen Fine Needle Aspirate Narrative Performed At Performing Organization Address City/State/Zipcode Phone Number [facility] [address] [place], [place] [phone] CENTER after 03/20/2018 Insurance Payer Benefit Plan / Subscriber ID Type Phone Address Group MEDICAID - MEDICAID [facility] xxxxxxxxx Medicaid Contracted [employer] PLAN J (Home) [address] [place] [address]
--- OUTSIDE RECORDS SUMMARY | 2019-03-21 07:35 | XMS REPORT ---
:1955 Author Organization eClinicalWorks Care Team Providers Name Role Phone Guido, Na Provider Role Unavailable Allergies, Adverse Reactions, Alerts Substance Reaction Event Type Stadol Info Not Available Drug Allergy Magnesium Info Not Available Drug Allergy Problems Problem Type Condition Code Onset Dates Condition Status Problem History of hepatitis C Z86.19 Active Problem Umbilical hernia without K42.9 Active obstruction and without gangrene Problem Spinal stenosis of lumbar region M48.062 Active with neurogenic claudication Problem Chronic GERD K21.9 Active Problem Other chronic pain G89.29 Active Problem History of colon polyps Z86.010 Active Problem Chronic obstructive pulmonary J44.9 Active disease, unspecified COPD type Problem Essential hypertension I10 Active Problem Anxiety F41.9 Active Assessment Dependence on supplemental oxygen Z99.81 Active Assessment Frequency of urination R35.0 Active Assessment Other chronic pain G89.29 Active Assessment Pain in right ankle and joints of M25.571 Active right foot Assessment Chronic obstructive pulmonary J44.9 Active disease, unspecified COPD type Assessment Anxiety F41.9 Active Assessment Blood tests for routine general Z00.00 Active physical examination Assessment Essential hypertension I10 Active Assessment Chronic GERD K21.9 Active Assessment Spinal stenosis of lumbar region M48.062 Active with neurogenic claudication Medications Medication Code Code Instructions Start End Status Dosage System Date Date Butrans [facility] 75087971745 10 MCG/HR Active 1 patch to Transdermal skin Lactulose ND 49603047046 10 GM/15ML Active 15 ml Orally Once a day Lopressor ND 29640756105 100 MG Orally Active 1 tablet Twice a day with food Spiriva ND 08293156316 2.5 microgram Active 2 puffs Respimat Inhaled Once a day Aspirin 81 ND 17808227524 81 MG Orally Active 1 tablet Once a day Zyrtec Allergy ND 31833703363 10 MG Orally Active 1 tablet Once a day Welcome ND 43931348401 7.5-325 MG Active 1 tablet Orally every 6 as needed hrs Albuterol-Ipra NDC 0 2.5-0.5mg/3ml Active not tropium inhalation 4 defined times per day Alprazolam [facility] 65905399302 0.5 MG Orally Active 1 tablet Twice a day Symbicort [facility] 57571161181 160-4.5 MCG/ACT Active 2 puffs Inhalation Twice a day Norvasc [facility] 48702024650 5 MG Orally Once Active 1 tablet a day Protonix [facility] 58603495165 20 MG Orally Active 1/2 tablet Once a day PredniSONE [facility] 75774177015 10 MG Orally Active 1 tablet Once a day Combivent ND 0 Active not defined Results No Known Results Summary Purpose eClinicalWorks Submission
--- OUTSIDE RECORDS SUMMARY | 2019-03-21 07:35 | XMS REPORT ---
:1955 [facility] Address [address] [place] [address] [address]. Mur[address] [place] [address] Care Team Providers Name Role Phone HOLLY LIANG Unavailable Unavailable Problems This patient has no known problems. Allergies, Adverse Reactions, Alerts This patient has no known allergies or adverse reactions. Medications This patient has no known medications. Results Test Description Test Time Test Comments Text Results Atomic Results Result Comments FINE NEEDLE ASPIRATION 2018-12-29 16:25:00 Medical Cytology Report BY CLINICIAN Case: [id number] Authorizing Provider: Holly Liang Collected: 12/28/2018 0903 MD Delores [facility]ing [facility] Endoscopy Received: 12/28/2018 1103 Services Pathologist: Salvador Begum MD Specimen: Pancreas PANCREAS CYST FNA BY CLINICIAN (CYTOSPINS AND CELL BLOCK OF ASPIRATE): - NEGATIVE FOR MALIGNANCY - The mucin stain is negative Signing Pathologist Direct Phone Line: [phone] signed by Salvador Begum MD on 12/29/2018 at 4:25 PMThe mucin stain is negative and the control slide shows positive staining as expected.98140, 78649, 70819Rzwg cysts in the pancreas, largest measuring 2.0 cmPANCREAS CYST FNA27 mls in cytorich red; 4 cytospins, 1 mucin stain, cell blockCollected: [id number]: [id number] interpretation of this case included the use of immunohistochemistry or special stains. MUCINImmunohistochemistry technical testing was performed at [facility], Pathology Laboratory where it was developed and its performance characteristics were determined. It has not been cleared or approved by the U.S. Food and Drug Administration. The FDA has determined that such clearance or approval is not necessary. The test is used for clinical purposes. It should not be regarded as investigational or for research. This laboratory is certified under the Clinical Laboratory Improvement Amendments of 1988 (CLIA-88) as qualified to perform high complexity clinical laboratory testing.[facility], Department of Pathology, [address] [place] [address], [facility], [address] [place] [address], [facility], [facility], [address] [place] [address], TISSUE EXAM 2018-12-29 10:28:00 Surgical Pathology Report Case: [id number] Authorizing Provider: Holly Liang Collected: 12/28/2018 0924 MD Delores Ordering Location: [facility] Endoscopy Received: 12/28/2018 1253 Services Pathologist: Kurtis Luna MD Specimen: Ampulla PART A AMPULLARY BIOPSY:PARTIALLY DENUDED NON-NEOPLASTIC SMALL INTESTINAL MUCOSA WITHOUT SIGNIFICANT HISTOPATHOLOGIC ALTERATION.NEGATIVE FOR DYSPLASIA OR INVASIVE CARCINOMA. Signing Pathologist Direct Phone Line: [phone] signed by Kurtis Luna MD on 12/29/2018 at 10:28 [id number] pancreatic lesionampullaThe container is labeled "ampulla" and consists of a single piece of leung-white tissue measuring 2 x 1 x 1 mm and a single piece of feathery white tissue measuring approximately the same dimension submitted entirely in cassette A. TW/bcPERFORMED AMYLASE, BODY FLUID 2018-12-28 13:26:00 Test Item Value Reference Range Comments AMYLASE FLUID (BEAKER) (test pkch=124) > U/L Absence of reference range indicates that normals have not been defined.Assay performance has not been validated for this type of specimen.FINE NEEDLE ASPIRATE (FNA) [id number] 13:00:00 Test Item Value Reference Range Comments CYTOLOGY RESULT POINTER (BEAKER) (test See Separate Report [id number])
[2019-03-21] MEDS ORDERED: Ringers Lactate 1,000 ML IV ONE (08:20)
[2019-03-21] MEDS ORDERED: LIDOCAINE 1% MPF 2 ML AMPULE ONE (09:24)
[2019-03-21] MEDS ORDERED: PROPOFOL 200 MG/20 ML VIAL IV ONE (09:24)
[2019-03-21 13:41] VITALS: BP 141/73; TEMP 97.3; O2SAT 99
--- NOTE | 2019-03-21 19:51 | OP ---
Surgeon: Maykel Rader MD Procedure To Be Performed: Esophagogastroduodenoscopy. Indication For Procedure: Abdominal pain, anemia, chronic liver disease. Plan For Anesthesia: Monitored anesthesia care. Complexity: High due to patient's severe COPD requiring continuous 4 L of oxygen. Technique: After obtaining informed consent from the patient and explaining risks and complications, which include but are not limited to bleeding, infection, perforation, and anesthesia complication, the patient was placed in left lateral position and sedation was given. From then on, the scope was advanced to the mouth and carefully guided up until the 3rd portion of the duodenum. After the compl etion of examination, scope and equipment were withdrawn and procedure terminated in a safe manner. Findings: Esophagus: No gross lesion seen in the whole esophagus. The GE junction was at 37 cm. Stomach: Mild patchy erythema seen in the body and antrum. Biopsies were taken. At the site of the lesser curvature between the distal body and proximal antrum, a small but prominent angiodysplasia w as seen. This was ablated with APC. Some oozing was seen, which was an evidence that this lesion wa s probably at risk of bleeding. The lesion was completely ablated. Duodenum, the bulb, second and t hird portions appeared normal. Small bowel biopsies were taken to rule out celiac disease. Complications: None. Tolerance To Anesthesia: Excellent. Postoperative Diagnoses: Mild gastritis, gastric arteriovenous malformation, status post ablation. Plan: 1.Await pathology results. 2.Continue oral PPI daily. 3.Follow up in the GI clinic in 2 weeks. US/MODL Voice ID: [id number] Report ID: [id number]
== END 2019-03-21 10:10 | disposition home or self-care (01) ==
LOC: OR 07:33
PROVIDERS: ATTEND Internal Medicine Gastroenterology
PROC: 0DB68ZX Excision of Stomach, Via Natural or Artificial Opening Endoscopic, Diagnostic (ICD-10-PCS; 2019-03-21)
PROC: 0DB88ZX Excision of Small Intestine, Via Natural or Artificial Opening Endoscopic, Diagnostic (ICD-10-PCS; 2019-03-21)
PROC: 0DB78ZX Excision of Stomach, Pylorus, Via Natural or Artificial Opening Endoscopic, Diagnostic (ICD-10-PCS; 2019-03-21)
PROC: 0D568ZZ Destruction of Stomach, Via Natural or Artificial Opening Endoscopic (ICD-10-PCS; principal; 2019-03-21 08:30)
DX: K29.50 Unspecified chronic gastritis without bleeding (principal); K31.819 Angiodysplasia of stomach and duodenum without bleeding; K74.60 Unspecified cirrhosis of liver; D64.9 Anemia, unspecified; I10 Essential (primary) hypertension; J44.9 Chronic obstructive pulmonary disease, unspecified; K21.9 Gastro-esophageal reflux disease without esophagitis; Z99.81 Dependence on supplemental oxygen; Z79.52 Long term (current) use of systemic steroids
CPT/HCPCS: 88305; 88312; J2001; J2704

== ENCOUNTER 2019-07-26 14:09 | Emergency (ER) | payer OTHER ==
--- OUTSIDE RECORDS SUMMARY | 2019-07-26 14:12 | XMS REPORT ---
:1955 [facility] Address [address] [place] [address] [address]. Murdock [address] [place] [address] Care Team Providers Name Role Phone HOLLY LIANG Unavailable Unavailable Problems This patient has no known problems. Allergies, Adverse Reactions, Alerts This patient has no known allergies or adverse reactions. Medications This patient has no known medications. Results Test Description Test Time Test Comments Text Results Atomic Results Result Comments FINE NEEDLE ASPIRATION 2018-12-29 16:25:00 Medical Cytology Report BY CLINICIAN Case: [id number] Authorizing Provider: Holly Liang Collected: 12/28/2018 0903 MD Delores Ordering Location: [facility] Endoscopy Received: 12/28/2018 1103 Services Pathologist: Salvador Begum MD Specimen: Pancreas PANCREAS CYST FNA BY CLINICIAN (CYTOSPINS AND CELL BLOCK OF ASPIRATE): - NEGATIVE FOR MALIGNANCY - The mucin stain is negative Signing Pathologist Direct Phone Line: [phone] signed by Salvador Begum MD on 12/29/2018 at 4:25 PMThe mucin stain is negative and the control slide shows positive staining as expected.00583, 89030, 66041Gugq cysts in the pancreas, largest measuring 2.0 cmPANCREAS CYST FNA27 mls in cytorich red; 4 cytospins, 1 mucin stain, cell blockCollected: [id number]: [id number] interpretation of this case included the use of immunohistochemistry or special stains. MUCINImmunohistochemistry technical testing was performed at [facility], Pathology Laboratory where it was developed and [...] qualified to perform high complexity clinical laboratory testing.[facility], Department of Pathology, [address] [place] [address], [facility], [facility] of [facility], [address] [place] [address], [facility], Department of Path[facility], [address] [place] [address], TISSUE EXAM 2018-12-29 10:28:00 Surgical Pathology Report Case: [id number] Authorizing Provider: Holly Liang Collected: 12/28/2018 0924 MD Delores Ordering Location: [facility] Endoscopy Received: 12/28/2018 1253 Services Pathologist: Kurtis Luna MD Specimen: Ampulla PART A AMPULLARY BIOPSY:PARTIALLY DENUDED NON-NEOPLASTIC SMALL INTESTINAL MUCOSA WITHOUT SIGNIFICANT HISTOPATHOLOGIC ALTERATION.NEGATIVE FOR DYSPLASIA OR INVASIVE CARCINOMA. Signing Pathologist Direct Phone Line: [phone] signed by Kurtis Luna MD on 12/29/2018 at 10:28 [id number] pancreatic lesionampullaThe container is labeled "ampulla" and consists of a single piece of leung-white tissue measuring 2 x 1 x 1 mm and a single piece of feathery white tissue measuring approximately the same dimension submitted entirely in cassette A. TW/bcPERFORMED AMYLASE, BODY FLUID 2018-12-28 13:26:00 Test Item Value Reference Range Comments AMYLASE FLUID (BEAKER) (test ddpv=344) > U/L Absence of reference range indicates that normals have not been defined.Assay performance has not been validated for this type of specimen.FINE NEEDLE ASPIRATE (FNA) [id number] 13:00:00 Test Item Value Reference Range Comments CYTOLOGY RESULT POINTER (BEAKER) (test See Separate Report [id number])
--- OUTSIDE RECORDS SUMMARY | 2019-07-26 14:12 | XMS REPORT ---
[...] End Status Dosage System Date Date Butrans [facility] 57606758983 10 MCG/HR Active 1 patch to Transdermal skin Lactulose ND 80144829212 10 GM/15ML Active 15 ml Orally Once a day Lopressor ND 67473646318 100 MG Orally Active 1 tablet Twice a day with food Spiriva ND 99127365233 2.5 microgram Active 2 puffs Respimat Inhaled Once a day Aspirin 81 ND 53063710689 81 MG Orally Active 1 tablet Once a day Zyrtec Allergy ND 20913481160 10 MG Orally Active 1 tablet Once a day Valentine ND 56727230761 7.5-325 MG Active 1 tablet Orally every 6 as needed hrs Albuterol-Ipra NDC 0 2.5-0.5mg/3ml Active not tropium inhalation 4 defined times per day Alprazolam [facility] 32622768565 0.5 MG Orally Active 1 tablet Twice a day Symbicort [facility] 18099455085 160-4.5 MCG/ACT Active 2 puffs Inhalation Twice a day Norvasc [facility] 05599154819 5 MG Orally Once Active 1 tablet a day Protonix [facility] 97303234011 20 MG Orally Active 1/2 tablet Once a day PredniSONE [facility] 15994749565 10 MG Orally Active 1 tablet Once a day Combivent ND 0 Active not defined Results No Known Results Summary Purpose eClinicalWorks Submission
--- NOTE | 2019-07-26 15:07 | RAD REPORT ---
EXAM DESCRIPTION: CT - Head Brain Wo Cont - 07/26/2019 2:51 pm CLINICAL HISTORY: Paresthesia COMPARISON: CT head January 2015 TECHNIQUE: Axial 5 mm thick images of the head were obtained without IV contrast. All CT scans are performed using dose optimization technique as appropriate and may include automated exposure control or mA/KV adjustment according to patient size. FINDINGS: No intracranial hemorrhage, mass, edema or shift of mid-line structures. No acute infarcti on changes seen. No abnormal extra-axial fluid collections. Ventricles are normal. Mastoid air cells and visualized portions of the paranasal sinuses are clear. No acute bony findings. No significant change from comparison. IMPRESSION: Negative non-contrast CT head examination.
--- NOTE | 2019-07-26 15:24 | RAD REPORT ---
EXAM DESCRIPTION: RAD - Chest Single View - 07/26/2019 3:10 pm CLINICAL HISTORY: Dyspnea COMPARISON: December 28, 2017 TECHNIQUE: AP portable chest image was obtained 1507 hours . FINDINGS: No consolidations seen. Patient has a prominent pericardial fat pad on the left. Parenchym al opacification in the right base is not substantially different. Minimal edema or infiltrate could be masked. Heart and vasculature are normal. No measurable pleural effusion and no pneumothorax. No a cute bony abnormality seen. No acute aortic findings suspected. IMPRESSION: Chronic lung base interstitial pattern potentially masking minimal edema or infiltrate.
[2019-07-26 15:35] LABS: Absolute Lymphocytes (CBC) 0.6 K/uL (0.7-4.9); Basophils % 0.4 % (0-1.3); Hematocrit 34.9 % (36.0-45.0); Lymphocytes % 10.4 % (15.3-44.8); MPV 8.9 fL (7.6-11.3)
[2019-07-26 15:36] LABS: Protime INR 1.16
[2019-07-26 15:59] LABS: ALT/SGPT 43 U/L (12-78); AST/SGOT 20 U/L (15-37); Albumin 3.6 g/dL (3.4-5.0); Alkaline Phosphatase 86 U/L (45-117); BUN Blood Urea Nitrogen 7 mg/dL (7-18); Bicarbonate 38 mmol/L (21-32); Bilirubin Total 0.2 mg/dL (0.2-1.0); Glucose Level 119 mg/dL (74-106); Lipase 47 U/L (73-393); NT PRO-BNP 12 pg/mL (<125); Potassium 3.5 mmol/L (3.5-5.1); Protein, Total 7.9 g/dL (6.4-8.2); Sodium Level 137 mmol/L (136-145); Troponin (Emerg Dept Use Only) < 0.02 ng/mL (0.0-0.045)
[2019-07-26 16:01] LABS: Urine Blood NEGATIVE (NEG); Urine Glucose NEGATIVE (NEG); Urine Protein NEGATIVE (NEG); Urine pH 7.5 (5.0-7.0)
--- NOTE | 2019-07-26 16:31 | EKG ---
Test Date: 2019-07-26 Test Time: 15:08:25 Manager Medical: TO MEASUREMENT RESULTS: Intervals: Rate: 92 AZ: 186 QRSD: 88 QT: 356 QTc: 440 [place]: P: 78 AZ: 186 QRS: 77 T: 62 INTERPRETIVE STATEMENTS: Normal sinus rhythm Right atrial enlargement Minimal voltage criteria for LVH, may be normal variant Cannot rule out Anterior infarct, age undetermined Abnormal ECG Compared to ECG 12/27/2017 20:57:28 Myocardial infarct finding now present Sinus tachycardia no longer present Ventricular premature complex(es) no longer present ST (T wave) deviation no longer present Electronically Signed On 07-26-19 16:29:58 GM MOBILE by Rusty Castillo
--- NOTE | 2019-07-26 16:45 | EDPHYS ---
Physician Documentation [facility] Name: Mila Whiting Age: 63 yrs Sex: Female : 1955 Arrival Date: 07/26/2019 Time: 14:16 Bed 5 Private MD: ED Physician Jeff Sampson HPI: 07/26 15:04 This 63 yrs old Black Female presents to ER via Wheelchair with complaints of Shortness ps1 Of Breath. 15:04 Hx of COPD, patient is normally on O2 4L. Had intermittent shortness of breath over ps1 last day. Symptoms associated with tingling in fingertips and face. No FND. [place] as though she had a lisp with speech yesterday which is not normal for the patient. No cough, fever. No chest pain. No abd pain n/v/d or leg swelling. . Historical: - Allergies: 14:21 liquid magnesium; la1 14:21 Stadol; la1 - PMHx: 14:21 acid reflux; Anxiety; COPD; Hypertension; la1 - Immunization history:: Adult Immunizations up to date. - Social history:: Smoking status: Patient/guardian denies using tobacco. - Ebola Screening: : No symptoms or risks identified at this time. ROS: 15:04 Constitutional: Negative for fever, chills, and weight loss, Eyes: Negative for injury, ps1 pain, redness, and discharge, Cardiovascular: Negative for chest pain, palpitations, and edema, Abdomen/GI: Negative for abdominal pain, nausea, vomiting, diarrhea, and constipation, Back: Negative for injury and pain, MS/Extremity: Negative for injury and deformity. 15:04 Respiratory: Positive for dyspnea on exertion, shortness of breath, on exertion. 15:04 Neuro: Positive for tingling. Exam: 15:04 Constitutional: This is a well developed, well nourished patient who is awake, alert, ps1 and in no acute distress. Head/Face: Normocephalic, atraumatic. Eyes: Pupils equal round and reactive to light, extra-ocular motions intact. Lids and lashes normal. Conjunctiva and sclera are non-icteric and not injected. Chest/axilla: Normal chest wall appearance and motion. Nontender with no deformity. No lesions are appreciated. Respiratory: Lungs have equal breath sounds bilaterally, clear to auscultation and percussion. No rales, rhonchi or wheezes noted. No increased work of breathing, no retractions or nasal flaring. Abdomen/GI: Soft, non-tender, with normal bowel sounds. No distension or tympany. No guarding or rebound. No evidence of tenderness throughout. MS/ Extremity: Pulses equal, no cyanosis. Neurovascular intact. Full, normal range of motion. Neuro: Awake and alert, GCS 15, oriented to person, place, time, and situation. Cranial nerves II-XII grossly intact. Sensory grossly intact. 15:04 Cardiovascular: Rate: tachycardic, Rhythm: regular, Pulses: no pulse deficits are appreciated. Vital Signs: 14:21 BP 154 / 83; Pulse 103; Resp 20; Temp 97.3; Pulse Ox 93% on 4 lpm NC; Weight 76.66 kg; la1 Height 5 ft. 1 in. (154.94 cm); 15:45 BP 131 / 84; Pulse 98; Resp 22; Pulse Ox 99% on 3 lpm NC; Pain 0/10; jl7 16:50 BP 142 / 86; Pulse 98; Resp 23 S; Pulse Ox 99% on 3 lpm NC; jl7 14:21 Body Mass Index 31.93 (76.66 kg, 154.94 cm) la1 MDM: 14:39 Patient medically screened. ps1 16:45 Antibiotic administration: The patient is discharged and will get outpatient ps1 antibiotics, Zithromax. Data reviewed: vital signs, nurses notes, lab test result(s), radiologic studies. Counseling: I had a detailed discussion with the patient and/or guardian regarding: the historical points, exam findings, and any diagnostic results supporting the discharge/admit diagnosis, lab results, radiology results, the need for outpatient follow up, to return to the emergency department if symptoms worsen or persist or if there are any questions or concerns that arise at home. ED course: not maintaining O2 demand. Nonspecific changes on CXR. Will give abx precautionary. Stable for discharge. . 07/26 14:39 Order name: Blood Culture Adult (2) ps1 07/26 14:39 Order name: CBC with Diff; Complete Time: 15:46 ps1 07/26 14:39 Order name: Lipase; Complete Time: 16:30 ps1 07/26 14:39 Order name: Magnesium; Complete Time: 16:30 ps1 07/26 14:39 Order name: NT PRO-BNP; Complete Time: 16:30 ps1 07/26 14:39 Order name: PT-INR; Complete Time: 15:46 ps1 07/26 14:39 Order name: XRAY CXR (1 view); Complete Time: 15:32 ps1 07/26 14:39 Order name: Troponin (emerg Dept Use Only); Complete Time: 16:30 ps1 07/26 14:39 Order name: EKG; Complete Time: 14:40 ps1 07/26 14:39 Order name: Cardiac monitoring; Complete Time: 14:48 ps1 07/26 14:39 Order name: CT Head Brain wo Cont; Complete Time: 15:32 ps1 07/26 14:39 Order name: CMP; Complete Time: 16:30 ps1 07/26 14:51 Order name: Urine Dipstick--Ancillary (enter results); Complete Time: 16:30 bd 07/26 14:39 Order name: EKG - Nurse/Tech; Complete Time: 15:36 ps1 07/26 14:39 Order name: IV Saline Lock; Complete Time: 15:36 ps1 07/26 14:39 Order name: Labs collected and sent; Complete Time: 15:36 ps1 07/26 14:39 Order name: O2 Per Protocol; Complete Time: 14:48 ps1 07/26 14:39 Order name: O2 Sat Monitoring; Complete Time: 14:48 ps1 EC:08 Rate is 92 beats/min. Rhythm is regular. QRS [place] is Normal. NH interval is normal. QRS ps1 interval is normal. QT interval is normal. Q waves are Old in leads V2, V3. T waves are Normal. No ST changes noted. Clinical impression: NSR w/ Non-specific ST/T Changes. Administered Medications: 16:55 Drug: Ativan 0.5 mg Route: PO; jl7 17:00 Follow up: Response: Medication administered at discharge. jl7 Disposition: 07/26/19 16:44 Discharged to Home. Impression: Shortness of breath, Bronchitis. - Condition is Stable. - Discharge Instructions: Acute Bronchitis, Adult, Shortness of Breath. - Prescriptions for Zithromax Z- Lucio 250 mg Oral Tablet - take 1 tablet by ORAL route as directed for 5 days Day 1 - take two (2) tablets one time. Day 2, 3, 4 , 5 take one (1) tablet once daily.; 6 tablet. - Medication Reconciliation Form, Thank You Letter, Antibiotic Education, Prescription Opioid Use form. - Follow up: Private Physician; When: 48 Hours; Reason: Further diagnostic work-up, Recheck today's complaints, Continuance of care, Re-evaluation by your physician. Follow up: Emergency Department; When: As needed; Reason: Fever > 102 F, Worsening of condition. - Problem is new. - Symptoms are unchanged. Signatures: Dispatcher [employer] EDMS Andres Shields RN RN la1 Barbara Bazzi RN RN jl7 Jeff Sampson MD MD ps1 Corrections: (The following items were deleted from the chart) 17:04 16:44 07/26/2019 16:44 Discharged to Home. Impression: Shortness of breath; Bronchitis. jl7 Condition is Stable. Forms are Medication Reconciliation Form, Thank You Letter, Antibiotic Education, Prescription Opioid Use. Follow up: Private Physician; When: 48 Hours; Reason: Further diagnostic work-up, Recheck today's complaints, Continuance of care, Re-evaluation by your physician. Follow up: Emergency Department; When: As needed; Reason: Fever > 102 F, Worsening of condition. Problem is new. Symptoms are unchanged. ps1
--- NOTE | 2019-07-26 16:45 | ER ---
Nurse's Notes [facility] Name: Mila Whiting Age: 63 yrs Sex: Female : 1955 Arrival Date: 07/26/2019 Time: 14:16 Bed 5 Private MD: Diagnosis: Shortness of breath;Bronchitis Presentation: 07/26 14:22 Presenting complaint: Patient states: increasing SOB over the last three days. la1 Transition of care: patient was not received from another setting of care. Onset of symptoms was July 26, 2019. Risk Assessment: Do you want to hurt yourself or someone else? Patient reports no desire to harm self or others. Initial Sepsis Screen: Does the patient meet any 2 criteria? No. Patient's initial sepsis screen is negative. Does the patient have a suspected source of infection? No. Patient's initial sepsis screen is negative. Care prior to arrival: None. 14:22 Method Of Arrival: Wheelchair la1 14:22 Acuity: CRISTY 3 la1 Historical: - Allergies: 14:21 liquid magnesium; la1 14:21 Stadol; la1 - PMHx: 14:21 acid reflux; Anxiety; COPD; Hypertension; la1 - Immunization history:: Adult Immunizations up to date. - Social history:: Smoking status: Patient/guardian denies using tobacco. - Ebola Screening: : No symptoms or risks identified at this time. Screenin:00 Abuse screen: Denies threats or abuse. Denies injuries from another. Nutritional jl7 screening: No deficits noted. Tuberculosis screening: No symptoms or risk factors identified. Fall Risk IV access (20 points). Total Valdes Fall Scale indicates No Risk (0-24 pts). Assessment: 14:50 General: Appears in no apparent distress. uncomfortable, Behavior is calm, cooperative, jl7 appropriate for age. Pain: Denies pain. Neuro: Level of Consciousness is awake, alert, obeys commands, Oriented to person, place, time, situation, Reports paresthesias in left hand and left foot. Cardiovascular: Denies chest pain, Heart tones S1 S2 present Patient's skin is warm and dry. Rhythm is regular. Respiratory: Reports shortness of breath at rest Airway is patent Respiratory effort is even, unlabored, Respiratory pattern is regular, symmetrical, Breath sounds are clear bilaterally. GI: Reports nausea. Derm: Skin is dry, Skin is normal, Skin temperature is warm. Musculoskeletal: No signs and/or symptoms reported regarding the musculoskeletal system. 16:00 Reassessment: Patient appears in no apparent distress at this time. No changes from jl7 previously documented assessment. Patient and/or family updated on plan of care and expected duration. Pain level reassessed. Patient is alert, oriented x 3, equal unlabored respirations, skin warm/dry/pink. 16:50 Reassessment: ERD at bedside discussing results and POC. jl7 Vital Signs: 14:21 BP 154 / 83; Pulse 103; Resp 20; Temp 97.3; Pulse Ox 93% on 4 lpm NC; Weight 76.66 kg; la1 Height 5 ft. 1 in. (154.94 cm); 15:45 BP 131 / 84; Pulse 98; Resp 22; Pulse Ox 99% on 3 lpm NC; Pain 0/10; jl7 16:50 BP 142 / 86; Pulse 98; Resp 23 S; Pulse Ox 99% on 3 lpm NC; jl7 14:21 Body Mass Index 31.93 (76.66 kg, 154.94 cm) la1 ED Course: 14:16 Patient arrived in ED. mr 14:19 Jeff Sampson MD is Attending Physician. ps1 14:22 Triage completed. la1 14:22 Arm band placed on left wrist. la1 14:41 Barbara Bazzi, RN is Primary Nurse. jl7 14:51 CT Head Brain wo Cont In Process Unspecified. EDMS 15:00 Patient has correct armband on for positive identification. Bed in low position. Call [facility] in reach. Side rails up X 1. baseball umpire for [employer] on. Pulse ox on. NIBP on. Warm blanket given. 15:05 First set of blood cultures drawn by me. jl7 15:07 XRAY CXR (1 view) In Process Unspecified. EDMS 15:25 Inserted saline lock: 22 gauge in left hand, using aseptic technique. Blood collected. jl7 15:25 Initial lab(s) drawn, by me, sent to lab. Second set of blood cultures drawn by me. jl7 15:26 EKG done, by veterinary technician assistant. reviewed by Jeff Sampson MD. sm3 17:04 No provider procedures requiring assistance completed. IV discontinued, intact, jl7 bleeding controlled, No redness/swelling at site. Pressure dressing applied. Administered Medications: 16:55 Drug: Ativan 0.5 mg Route: PO; jl7 17:00 Follow up: Response: Medication administered at discharge. jl7 Outcome: 16:44 Discharge ordered by . ps1 17:04 Discharged to home ambulatory, with family. jl7 17:04 Condition: stable 17:04 Discharge instructions given to patient, family, Instructed on discharge instructions, follow up and referral plans. medication usage, Demonstrated understanding of instructions, follow-up care, medications, Prescriptions given X 1. 17:04 Patient left the ED. jl7 Signatures: Dispatcher [employer] EDIL Maria A Trevino mr LoyaradhaAndres, RN RN la1 Barbara Bazzi RN RN jl7 Jeff Sampson MD MD ps1 Mary Odonnell sm3 Corrections: (The following items were deleted from the chart) 16:03 15:45 BP 131 / 84; Pulse 10bpm; Resp 22bpm; Pulse Ox 99% 3 lpm Nasal Cannula; Pain jl7 0/10; jl7
[2019-07-26] MEDS ORDERED: LORAZEPAM 0.5 MG TABLET ONE (16:56)
[2019-07-26 17:14] VITALS: TEMP 97.3
[2019-07-26 17:19] VITALS: BP 142/86; O2SAT 99
== END 2019-07-26 17:04 | disposition home or self-care (01) ==
LOC: ER 14:09
DX: J40 Bronchitis, not specified as acute or chronic (principal); I10 Essential (primary) hypertension; Z88.5 Allergy status to narcotic agent; Z88.6 Allergy status to analgesic agent; Z88.8 Allergy status to other drugs, medicaments and biological substances
CPT/HCPCS: 36415; 70450; 71045; 80053; 81003; 83690; 83735; 83880; 84484; 85025; 85610; 87040; 93005; 99284

== ENCOUNTER 2020-08-13 10:26 | Emergency (ER) | payer OTHER ==
--- OUTSIDE RECORDS SUMMARY | 2020-08-13 11:04 | XMS REPORT | Clinical Summary ---
:1955 Author Organization [facility] Address [address] [place] [address] Care Team Providers Name Role Phone Guille Justice MD Primary Care Provider [phone] Allergies Active Allergy Reactions Severity Noted Date [...] Anxiety. albuterol Take 2.5 mg by 0 Activ e (PROVENTIL) 2.5 nebulization every 6 mg/0.5 mL [...] lactulose Take 20 g by mouth 0 A ctive (CHRONULAC) 10 daily as needed. gram/15 mL [...] 3 liter Active Problems Not on file Social History Tobacco Use Types Packs/Day Years [...] six or more drinks on one occasion? No t asked Sex Assigned at Date Recorded Not on file Last Filed Vital Signs Not on file Plan of Treatment Health Maintenance Due Date Last Done Comments BREAST CANCER SCREENING 1955 COLON CANCER SCREENING COLONOSCOPY 1955 CERVICAL CANCER SCREENING PAP ONLY (Age 21-65) 1976 LIPID PANEL 2000 INFLUENZA VACCINE (#1) 2020 Results Not on fileafter 08/13/2019 Insurance Payer Benefit Plan Subscriber ID Effective Dates Phone Address Type / Group MEDICAID - [facility] [id number] 2018-Gumaro hutchinson MEDICAID [facility] STAR PLAN [facility]
--- OUTSIDE RECORDS SUMMARY | 2020-08-13 11:04 | XMS REPORT | Continuity of Care Document ---
:1955 Author Organization [facility] t Address [address] [place] [address] Care Team Providers Name Role Phone Victor Hugo Justice MD Primary Care Physician Lab, Fam Pob I Attending Clinician Unavailable Victor Hugo Mcintyre MD Attending Clinician GARTH MCKEON Attending Clinician Unavailable GARTH MCKEON Admitting Clinician Unavailable Payers Payer Name Policy Type Policy Number Effective Date Expiration Date S ource Problems This patient has no known problems. Allergies, Adverse Reactions, Alerts Allergy Allergy Status Severity Reaction(s) Onset Inactive Treating Comm ents Source Name Type Date Date Clinician Aurea Pinedai Active Anaphylaxis 2019-[address] [facility] 12[facility]27 [facility] reaction 00 Center s Butorpha Propensi Active Anaphylaxis 2019-[address] nol ty to 12-27 [facility] Tartrate adverse 00:00: Medical reaction 00 Center s Stadol Adverse Active Info Not [facility] Reaction [facility] Magnesiu Adverse Active Info Not [facility] Reaction [facility] Social History Social Habit Start Date Stop Date Quantity Comments Source History SDOH [facility] Std Drinks Medica l Center History SDOH [facility] Alcohol Binge Medical [facility] Sex Assigned At [facility] Cailin kes - [facility] Tobacco use and 2018-12-28 2018-12-[address] Cailin kes - exposure 00:00:00 00:00:00 [facility] Alcohol intake 2018-12-28 2018-12-[address] [facility] - 00:00:00 00:00:00 non-drinker of Medical Ce nter alcohol (finding) History SDOH 2018-12-27 2018-12-[address] [facility] - Alcohol Frequency 00:00:00 00:00:00 [facility] Tobacco Comment 2018-12-27 2018-12-27 quit [facility]:00 [facility] Smoking Status Start Date Stop Date Source Former smoker 2018-12-28 00:00:00 2018-12-28 00:00:00 [facility] Medications Ordered Filled Start Stop Current Ordering Indication Dosage Frequency Signature Comments Components Source Medication Medication Date Date Medication? Clinician (SIG) Name Name aspirin 81 2018- Yes 81mg QD Take [address] MG EC 4-30 by mouth [facility] - tablet 10:34: daily. [address] ALPRAZolam Yes .5mg Take 0.[address] (XANAX) 0.5 4-30 mg by [facility] - MG tablet 10:34: mouth 3 Medic al 04 (three) Center times daily as needed for Anxiety. albuterol Yes 2.5mg Take 2.[address] (PROVENTIL) 4-30 mg by [facility] - 2.5 mg/0.5 10:34: nebulizati M edical mL Nebu 04 on every 6 Center nebulizer (six) solution hours as needed. predniSONE Yes 5mg QD Take [address] (DELTASONE) 4-30 by mouth Luke s - 5 MG tablet 10:34: daily. Medi josé miguel 04 Center budesonide- Yes 2{puff} Q.5D Inhale [address] formoterol 4-30 puffs by [facility] - (SYMBICORT) 10:34: mouth via M edical 160-4.5 04 inhaler 2 Center mcg/actuati (two) on inhaler times daily. amLODIPine 2019 Yes 5mg QD Take [address] (NORVASC) 5 4-30 by mouth Luke s - MG tablet 10:34: daily. Medica l 04 Center tiotropium Yes 18ug Q.5D Inhale [address] (SPIRIVA) 4-30 mcg by [facility] - 18 mcg 10:34: mouth via Medica l inhalation 04 inhaler 2 Cent er capsule (two) times daily. HYDROcodone 2018- Yes 1{tbl} Take [address] -acetaminop 4-30 tablet by Cat es - hen (NORCO 10:34: mouth Medica l 7.5-325) 04 every 8 Center 7.5-325 mg (eight) per tablet hours as needed for Pain. buprenorphi Yes 1{patch Place [address] ne 4-30 } patch onto [facility] - (BUTRANS) 10:34: the skin Medi josé miguel 10 mcg/hour 04 every 7 Cente r PTWK days. lactulose Yes 20g Take [address] (CHRONULAC) 4-30 by mouth Luke s - 10 gram/15 10:34: daily as Med ical mL (15 mL) 04 needed. Center solution docusate Yes 200mg Take [address] sodium 4-30 mg by [facility] - (COLACE) 10:34: mouth Medical 100 MG 04 daily as Center capsule needed for Constipati on. psyllium 2019 Yes .52g Take 0.[address] 0.52 gram 4-30 g by mouth Luke s - capsule 10:34: every 7 Medical 04 days. Center pantoprazol Yes 20mg QD Take [address] e 4-30 by mouth [facility] - (PROTONIX) 10:34: daily. Medic al 20 MG 04 Center tablet cetirizine Yes 10mg Take [address] (ZYRTEC) 10 4-30 by mouth Luke s - MG tablet 10:34: daily as Medi josé miguel 04 needed for Center Allergies. promethazin Yes 5mL Take [address] e-codeine 4-30 by mouth [facility] - (PHENERGAN 10:34: every 4 Medi josé miguel WITH 04 (four) Center CODEINE) hours as 6.25-10 needed for mg/5 mL Cough. syrup gabapentin Yes 100mg QD Take [address] (NEURONTIN) 4-30 mg by [facility] - 100 MG 10:34: mouth Medical capsule 04 daily. Center OXYGEN-AIR Yes by [facility] DELIVERY 4-30 Miscellane [facility] - SYSTEMS 10:34: ous route. [facility] MIS 04 Center Butrans Butrans Yes Na Guido [address] [facility] Lactulose Lactulose Yes Na Guido [address] [facility] Lopressor Lopressor Yes Na Guido [address] with food [facility] Spiriva Spiriva Yes Na Guido [address] Respimat Respimat [facility] Aspirin 81 Aspirin 81 Yes Na Guido [address] [facility] Zyrtec Zyrtec Yes Na Guido [address] Allergy Allergy [facility] [place] Yes Na Guido [address] as needed [facility] Albuterol-I Albuterol-I Yes Na Guido not [facility] pratropium pratropium defined [facility] Alprazolam Alprazolam Yes Na Guido [address] [facility] Symbicort Symbicort Yes Na Guido [address] [facility] Yes Na Guido [address] [facility] Protonix Protonix Yes Na Guido 1/[address] [facility] PredniSONE PredniSONE Yes Na Guido [address] [facility] [facility] Combivent Combivent Yes Na Guido not [facility] defined [facility] Procedures This patient has no known procedures. Plan of Care Planned Activity Planned Date Details Comments Source Future Scheduled 2020-05-[address] [facility] - Test 00:00:00 (#1) [code = [facility] INFLUENZA VACCINE (#1)] Future Scheduled [address] [facility] - Test 00:00:00 (procedure) [code = [facility] 74204412] Future Scheduled [address] [facility] - Test 00:00:00 malignant neoplasm Medical C enter of cervix (procedure) [code = 293913095] Future Scheduled [address] [facility] - Test 00:00:00 malignant neoplasm Medical C enter of breast (procedure) [code = 503403403] Future Scheduled [address] [facility] - Test 00:00:00 malignant neoplasm Medical C enter of colon (procedure) [code = 889987770] Encounters Start End Encounter Admission Attending Care Care Encounter Source Date/Time Date/Time Type Type Clinicians Facility Department ID 2020-06-20 2020-06-20 Drill Operator Lab, [facility] [id number] 11:09:56 11:18:42 Visit [facility] [id number] [place] [id number] Professio [phone] nal 0[address] 2020-06-20 2020-06-20 Office [facility], [facility] [id number] 10:10:47 10:40:47 Visit [facility] [id number] Victor Hugo [place] [id number] Professio [phone] nal 044 Office [address] One 2020-05-21 2020-05-21 Outpatient [facility] [id number] [facility] 2020-05-21 2020-05-21 Outpatient [facility] [id number] [facility] 2018-11-08 2018-11-08 [facility] [id number] 11:45:00 11:45:00 [facility] Results Test Description Test Time Test Comments Results Result Sourc e Comments FINE NEEDLE Medical Cytology Report ASPIRATION BY 1 CLINICIAN 16:25:00 Case: [id number] Authorizing Provider: GarthHolly Garth Collected: 12/28/2018 Patsy Estrella MD Ordering Location: [facility] Endoscopy Received: 12/28/2018 1103 Services Pathologist: Salvador Begum MD Specimen: Pancreas PANCREAS CYST FNA BY CLINICIAN (CYTOSPINS AND CELL BLOCK OF ASPIRATE): - NEGATIVE FOR MALIGNANCY - The mucin stain is negative Signing Pathologist Direct Phone Line: [phone] signed by Salvador Begum MD on 12/29/2018 at 4:25 PMThe mucin stain is negative and the control slide shows positive staining as expected.93252, 24717, 93539Nwmm cysts in the pancreas, largest measuring 2.0 cmPANCREAS CYST FNA27 mls in cytorich red; 4 cytospins, 1 mucin stain, cell blockCollected: [id number]: [id number] interpretation of this case included the use of immunohistochemistry or special stains. MUCINImmunohistochemistry technical testing was performed at [facility], Pathology Laboratory where it was [...] qualified to perform high complexity clinical laboratory testing.[facility], Department of Pathology, [address] [place] [id number], [facility], [address] [place] [address], [facility], [facility] of [facility], [address] [place] [id number], TISSUE EXAM Surgical Pathology Report 1 10:28:00 Case: [id number] Authorizing Provider: GarthHolly Garth Collected: 12/28/2018 0924 MD Delores Ordering Location: [facility] Endoscopy Received: 12/28/2018 1253 Services Pathologist: Kurtis Luna MD Specimen: Ampulla PART A AMPULLARY BIOPSY:PARTIALLY DENUDED NON-NEOPLASTIC SMALL INTESTINAL MUCOSA WITHOUT SIGNIFICANT HISTOPATHOLOGIC ALTERATION.NEGATIVE FOR DYSPLASIA OR INVASIVE CARCINOMA. Signing Pathologist Direct Phone Line: [phone] signed by Kurtis Luna MD on 12/29/2018 at 10:28 [id number] pancreatic lesionampullaThe container is labeled "ampulla" and consists of a single piece of leung-white tissue measuring 2 x 1 x 1 mm and a single piece of feathery white tissue measuring approximately the same dimension submitted entirely in cassette A. TW/bcPERFORMED AMYLASE, BODY FLUID 2018-12-28 13:26:00 Test Item Value Reference Range Interpretation Comme nts AMYLASE FLUID (BEAKER) (test code = 350) > U/L Absence of reference range indicates that normals have not been defined.Assay performance has not been validated for this type of specimen.FINE NEEDLE ASPIRATE (FNA) [id number] 13:00:00 Test Item Value Reference Range Interpretation Comments CYTOLOGY RESULT POINTER See Separate Report (BEAKER) (test code = 2629)
[2020-08-13] MEDS ORDERED: NA CHLORIDE 0.9% 500 ML ONE (11:20)
[2020-08-13 11:54] LABS: Absolute Lymphocytes (CBC) 1.2 K/uL (0.7-4.9); Basophils % 0.6 % (0-1.3); Hematocrit 38.5 % (36.0-45.0); Lymphocytes % 19.4 % (15.3-44.8); MPV 9.4 fL (7.6-11.3); RBC Red Blood Cell Count 4.41 M/uL (3.86-4.86)
[2020-08-13 12:09] LABS: Protime INR 1.1
--- NOTE | 2020-08-13 12:17 | RAD REPORT ---
EXAM DESCRIPTION: Devantet Single View08/13/2020 11:50 am CLINICAL HISTORY: Shortness of breath COMPARISON: 2018 FINDINGS: No significant change in bilateral interstitial lung opacities. The heart is mildly enlarg ed. Lungs are hyperaerated IMPRESSION: No significant change in bilateral interstitial lung opacities probably fibrosis
[2020-08-13 12:26] LABS: ALT/SGPT 18 U/L (12-78); AST/SGOT 19 U/L (15-37); Albumin 3.9 g/dL (3.4-5.0); Alkaline Phosphatase 83 U/L (45-117); BUN Blood Urea Nitrogen 3 mg/dL (7-18); Bicarbonate 39 mmol/L (21-32); Bilirubin Direct < 0.1 mg/dL (0-0.2); Bilirubin Total 0.3 mg/dL (0.2-1.0); Glucose Level 104 mg/dL (74-106); NT PRO-BNP 23 pg/mL (<125); Potassium 3.7 mmol/L (3.5-5.1); Protein, Total 8.5 g/dL (6.4-8.2); Sodium Level 139 mmol/L (136-145); Troponin (Emerg Dept Use Only) < 0.02 ng/mL (0.0-0.045)
[2020-08-13 12:53] LABS: Urine Blood NEGATIVE (NEG); Urine Glucose NEGATIVE (NEG); Urine Protein NEGATIVE (NEG); Urine pH 7.5 (5.0-7.0)
[2020-08-13] MEDS ORDERED: LORazepam 2 MG/ML VIAL ONE (12:58)
--- NOTE | 2020-08-13 14:06 | RAD REPORT ---
EXAM DESCRIPTION: CTAbdomen Pelvis W Contrast - 08/13/2020 1:47 pm CLINICAL HISTORY: Abdominal pain. abdominal pain COMPARISON: Abdomen Pelvis W Contrast dated 12/27/2017; CT ABD PELVIS W CONTRAST dated 09/14/2014; C T ABD PELVIS W CONTRAST dated 08/17/2012; CT ABD PELVIS W CONTRAST dated 05/29/2008; Mri Abdomen W/Wo Cont dated 12/29/2017; Abdomen WWo Cont dated 02/20/2020 TECHNIQUE: Biphasic CT imaging of the abdomen and pelvis was performed with 100 ml non-ionic IV cont rast. All CT scans are performed using dose optimization technique as appropriate and may include automated exposure control or mA/KV adjustment according to patient size. FINDINGS: The lung bases are clear. There is a mild fatty liver infiltration pattern seen with a slight nodular contour of the liver pare nchyma. This suggests early cirrhotic changes. Cholecystectomy clips. The spleen, adrenal glands with in normal limits. Left kidney is normal. Right kidney contains a small cyst measuring 15 mm. Numerous cystic hypodense pancreatic lesions are again seen with mild pancreatic ductal dilatation. These fin dings appear grossly similar to 02/20/2020 MRI study. No bowel obstruction, free air, free fluid or abscess. Scattered colonic diverticulosis. Moderate fat containing ventral hernia just superior to the umbilicus noted. The appendix is normal. Several calc ified uterine fibroids. No evidence of significant lymphadenopathy. Moderate lumbosacral degenerative changes. IMPRESSION: No acute intra-abdominal or pelvic finding. Mild/early findings hepatic cirrhosis. Multiple hypodense masses again seen in the pancreas, grossly similar to prior MR imaging. Advise con tinued nonemergent MR imaging of the pancreas for surveillance purposes. Moderate fat containing supraumbilical ventral hernia. Scattered colonic diverticulosis.
--- NOTE | 2020-08-13 14:26 | EDPHYS ---
Physician Documentation [facility] Name: Mila Whiting Age: 64 yrs Sex: Female : 1955 Arrival Date: 08/13/2020 Time: 10:29 Bed 15 Private MD: ED Physician Jeff Sampson HPI: 08/13 11:00 This 64 yrs old Black Female presents to ER via Wheelchair with complaints of Not jmm Feeling Well. 11:00 The patient presents with abdominal pain. Onset: The symptoms/episode began/occurred at [facility] an unknown time. The symptoms do not radiate. Associated signs and symptoms: Pertinent negatives: nausea and vomiting, diarrhea. The symptoms are described as achy. This is a 64 year old female with a history of GERD, ventral hernia, COPD, HTN that presents to the ED with complaints of epigastric abdominal pain which has been chronic since a ventral hernia repair performed 2 year ago. Patient is currently under the care of Dr. Stone. States she has recently developed more pain with increased fatigue. Patient is concerned she may have a uti. Historical: - Allergies: 11:05 liquid magnesium; iw 11:05 Stadol; iw - PMHx: 11:05 acid reflux; Anxiety; COPD; Hypertension; iw - Immunization history:: Adult Immunizations unknown. - Social history:: Smoking status: unknown. ROS: 11:00 Constitutional: Negative for fever, chills, and weight loss, Cardiovascular: Negative jmm for chest pain, palpitations, and edema, Respiratory: Negative for shortness of breath, cough, wheezing, and pleuritic chest pain. 11:00 Abdomen/GI: Positive for abdominal pain. 11:00 All other systems are negative. Exam: 11:00 Constitutional: This is a well developed, well nourished patient who is awake, alert, jmm and in no acute distress. Head/Face: atraumatic. Eyes: EOMI, no conjunctival erythema appreciated ENT: Moist Mucus Membranes Neck: Trachea midline, Supple Chest/axilla: Normal chest wall appearance and motion. Cardiovascular: Regular rate and rhythm. No edema appreciated Respiratory: Normal respirations, no respiratory distress appreciated Abdomen/GI: Non distended, soft Back: Normal ROM Skin: General appearance color normal MS/ Extremity: Moves all extremities, no obvious deformities appreciated, no edema noted to the lower extremities Neuro: Awake and alert, normal gait Psych: Behavior is normal, Mood is normal, Patient is cooperative and pleasant 13:57 Abdomen/GI: Inspection: mild epigastric pain on palpation. [facility] 13:57 Back: ROM is normal. Vital Signs: 11:02 BP 152 / 94; Pulse 112; Resp 20 S; Temp 98.7; Pulse Ox 100% on 3 lpm NC; iw 12:00 BP 147 / 91; Pulse 100; Resp 16; Pulse Ox 100% on 4 lpm NC; iw 14:56 BP 135 / 86; Pulse 95; Resp 16 S; Pulse Ox 100% on R/A; ca1 MDM: 10:59 Patient medically screened. [facility] 14:24 Data reviewed: vital signs, nurses notes. Counseling: I had a detailed discussion with [facility] the patient and/or guardian regarding: the historical points, exam findings, and any diagnostic results supporting the discharge/admit diagnosis, lab results, radiology results, the need for outpatient follow up, to return to the emergency department if symptoms worsen or persist or if there are any questions or concerns that arise at home. ED course: Patient is alert and non toxic in appearance in the ED. Imaging studies negative for an acute process. Advised to follow up with GI for further evaluation. Patient is otherwise given strict return precautions. Patient understood and agrees with the plan of care. . 08/13 11:00 Order name: Basic Metabolic Panel; Complete Time: 12:49 [facility] 08/13 11:00 Order name: CBC with Diff; Complete Time: 12:19 [facility] 08/13 11:00 Order name: LFT's; Complete Time: 12:49 [facility] 08/13 11:00 Order name: Magnesium; Complete Time: 12:49 [facility] 08/13 11:00 Order name: NT PRO-BNP; Complete Time: 12:49 [facility] 08/13 11:00 Order name: PT-INR; Complete Time: 12:19 [facility] 08/13 11:00 Order name: Troponin (emerg Dept Use Only); Complete Time: 12:49 [facility] 08/13 11:00 Order name: XRAY Chest (1 view); Complete Time: 12:19 [facility] 08/13 11:00 Order name: Procalcitonin; Complete Time: 12:49 [facility] 08/13 11:00 Order name: Lactate; Complete Time: 12:19 [facility] 08/13 11:00 Order name: Blood Culture Adult (2) [facility] 08/13 11:00 Order name: Urine Culture [facility] 08/13 12:23 Order name: Urine Dipstick--Ancillary (enter results); Complete Time: 13:01 08/13 13:03 Order name: CT Abd/Pelvis - IV Contrast Only; Complete Time: 14:08 [facility] 08/13 11:00 Order name: EKG; Complete Time: 11:01 [facility] 08/13 11:00 Order name: Cardiac monitoring; Complete Time: 11: [facility] 08/13 11:00 Order name: EKG - Nurse/Tech; Complete Time: 11: [facility] 08/13 11:00 Order name: IV Saline Lock; Complete Time: 12: [facility] 08/13 11:00 Order name: Labs collected and sent; Complete Time: 11:47 [facility] 08/13 11:00 Order name: O2 Per Protocol; Complete Time: 11: [facility] 08/13 11:00 Order name: O2 Sat Monitoring; Complete Time: 11: [facility] 08/13 11:00 Order name: Urine Dipstick-Ancillary (obtain specimen); Complete Time: 11:13 [facility] Administered Medications: 12:50 Drug: NS 0.9% 500 ml Route: IV; Rate: bolus; Site: left hand; 13:00 Follow up: Response: No adverse reaction; IV Status: Completed infusion; IV Intake: zb 500ml Disposition: 17:53 Co-signature as Attending Physician, Jeff Sampson MD Did not see or evaluate patient. ps1 Signature for administrative purposes. . Disposition: 08/13/20 14:26 Discharged to Home. Impression: Generalized abdominal pain. - Condition is Stable. - Discharge Instructions: Abdominal Pain, Adult. - Prescriptions for alprazolam 1 mg Oral tablet - take 1 tablet by ORAL route as needed; 20 tablet. - Medication Reconciliation Form, Thank You Letter, Antibiotic Education, Prescription Opioid Use form. - Follow up: Maykel Rader MD; When: 2 - 3 days; Reason: Recheck today's complaints, Continuance of care, Re-evaluation by your physician. Signatures: Dispatcher [employer] Satish Maddox PA PA jmm Williams, Irene, RN RN iw Singer, Phillip, MD MD ps1 Brown, Lois, RN RN zb Corrections: (The following items were deleted from the chart) 15:12 14:26 08/13/2020 14:26 Discharged to Home. Impression: Generalized abdominal pain. zb Condition is Stable. Forms are Medication Reconciliation Form, Thank You Letter, Antibiotic Education, Prescription Opioid Use. Follow up: Maykel Rader; When: 2 - 3 days; Reason: Recheck today's complaints, Continuance of care, Re-evaluation by your physician. steffanie
--- NOTE | 2020-08-13 14:26 | ER ---
Nurse's Notes [facility] Name: Mila Whiting Age: 64 yrs Sex: Female : 1955 Arrival Date: 08/13/2020 Time: 10:29 Bed 15 Private MD: Diagnosis: Generalized abdominal pain Presentation: 08/13 10:59 Chief complaint: Patient states: feels dehydrated, has a lot of chronic GI issues and iw has been feeling weak and dizzy , has lost 26 pounds in the past couple months, also has had foul smelling urine for over a week, has hx of UTI. Ebola Screen: Patient negative for fever greater than or equal to 101.5 degrees Fahrenheit, and additional compatible Ebola Virus Disease symptoms Patient denies exposure to infectious person. Patient denies travel to an Ebola-affected area in the 21 days before illness onset. No symptoms or risks identified at this time. Onset of symptoms was August 06, 2020. 10:59 Method Of Arrival: Wheelchair iw 10:59 Acuity: CRISTY 3 iw 11:02 Initial Sepsis Screen: Does the patient meet any 2 criteria? Does the patient have a iw suspected source of infection? No. Patient's initial sepsis screen is negative. Risk Assessment: Do you want to hurt yourself or someone else? Patient reports no desire to harm self or others. 13:03 Coronavirus screen: At this time, the client does not indicate any symptoms associated iw with coronavirus-19. Historical: - Allergies: 11:05 liquid magnesium; iw 11:05 Stadol; iw - PMHx: 11:05 acid reflux; Anxiety; COPD; Hypertension; iw - Immunization history:: Adult Immunizations unknown. - Social history:: Smoking status: unknown. Screenin:15 Abuse screen: Denies threats or abuse. Denies injuries from another. Nutritional iw screening: No deficits noted. Tuberculosis screening: No symptoms or risk factors identified. Fall Risk None identified. Assessment: 11:15 General: Appears in no apparent distress. comfortable, Behavior is calm, cooperative, iw appropriate for age, Reports feeling ill for fatigue for. Pain: Complains of pain in back Pain does not radiate. Pain currently is 7 out of 10 on a pain scale. Quality of pain is described as sharp, Pain began years ago. Is continuous. Neuro: Level of Consciousness is awake, alert, obeys commands, Oriented to person, place, time, situation. Cardiovascular: Capillary refill < 3 seconds in bilateral Patient's skin is warm and dry. Respiratory: Airway is patent Respiratory effort is even, unlabored, Respiratory pattern is regular, Breath sounds are clear bilaterally. GI: No signs and/or symptoms were reported involving the gastrointestinal system. : Reports urgency, foul smelling urine, feel like she has a UTI. EENT: Derm: Skin is intact, is healthy with good turgor, Skin is pink, warm \T\ dry. normal. Musculoskeletal: Circulation, motion, and sensation intact. Capillary refill < 3 seconds, in bilateral fingers. Range of motion: intact in all extremities. 12:15 Reassessment: Patient appears in no apparent distress at this time. Patient and/or iw family updated on plan of care and expected duration. Pain level reassessed. Patient is alert, oriented x 3, equal unlabored respirations, skin warm/dry/pink. pt ambulates to bedside commode. 13:30 Reassessment: Patient appears in no apparent distress at this time. Patient and/or zb family updated on plan of care and expected duration. Pain level reassessed. Patient is alert, oriented x 3, equal unlabored respirations, skin warm/dry/pink. pt up ad zena. POC discussed with patient. 14:51 Reassessment: Patient appears in no apparent distress at this time. Patient is alert, ca1 oriented x 3, equal unlabored respirations, skin warm/dry/pink. Vital Signs: 11:02 BP 152 / 94; Pulse 112; Resp 20 S; Temp 98.7; Pulse Ox 100% on 3 lpm NC; iw 12:00 BP 147 / 91; Pulse 100; Resp 16; Pulse Ox 100% on 4 lpm NC; iw 14:56 BP 135 / 86; Pulse 95; Resp 16 S; Pulse Ox 100% on R/A; ca1 ED Course: 10:29 Patient arrived in ED. rg4 10:44 Satish Maradiaga PA is PHCP. jmm 10:45 Jeff Sampson MD is Attending Physician. jmm 10:46 Lois Mckeon, CARLOS is Primary Nurse. zb 11:02 Triage completed. iw 11:05 Arm band placed on. iw 11:15 Patient has correct armband on for positive identification. Bed in low position. Call iw light in reach. Side rails up X 1. Door closed. Warm blanket given. 11:20 Missed attempt(s): 22 gauge in left antecubital area. iw 11:50 XRAY Chest (1 view) In Process Unspecified. EDMS 12:09 Missed attempt(s): 22 gauge in right forearm. Bleeding controlled, band aid applied, dh3 catheter tip intact. 12:14 Missed attempt(s): 22 gauge in right antecubital area. Bleeding controlled, band aid dh3 applied, catheter tip intact. 12:17 Inserted saline lock: 22 gauge in left hand, using aseptic technique. dh3 13:29 Inserted saline lock: 22 gauge in right forearm, using aseptic technique. ca1 13:47 CT Abd/Pelvis - IV Contrast Only In Process Unspecified. EDMS 14:25 Maykel Rader MD is Referral Physician. [facility] 14:56 No provider procedures requiring assistance completed. IV discontinued, intact, ca1 bleeding controlled, No redness/swelling at site. Pressure dressing applied. Administered Medications: 12:50 Drug: NS 0.9% 500 ml Route: IV; Rate: bolus; Site: left hand; iw 13:00 Follow up: Response: No adverse reaction; IV Status: Completed infusion; IV Intake: zb 500ml Intake: 13:00 IV: 500ml; Total: 500ml. zb Outcome: 14:26 Discharge ordered by . [facility] 14:56 Discharged to home ambulatory. ca1 14:56 Condition: stable 14:56 Discharge instructions given to patient, Instructed on discharge instructions, follow up and referral plans. medication usage, Demonstrated understanding of instructions, follow-up care, medications, Prescriptions given X 1. 15:12 Patient left the ED. zb Signatures: Dispatcher [employer] EDMS Satish Maradiaga PA PA jmm Williams, Irene, RN RN iw Garcia, Rubi rg4 Herrera, Deanna 3 Sabra Molina RN RN ca1 Lois Mckeon RN RN zb
--- NOTE | 2020-08-14 19:35 | EKG ---
Test Date: 2020-08-13 Test Time: 11:07:11 Lithographic Photographer: BYRON MEASUREMENT RESULTS: Intervals: Rate: 98 NM: 190 QRSD: 84 QT: 336 QTc: 428 Sutton: P: 70 NM: 190 QRS: 68 T: 65 INTERPRETIVE STATEMENTS: Normal sinus rhythm Right atrial enlargement Voltage criteria for left ventricular hypertrophy Abnormal ECG Compared to ECG 07/26/2019 15:08:25 Myocardial infarct finding no longer present Electronically Signed On 08-14-20 19:32:38 CHAIN MENDER by Rusty Castillo
[2020-08-16 09:01] VITALS: TEMP 98.7; O2SAT 100
[2020-08-16 09:06] VITALS: BP 135/86
== END 2020-08-13 15:12 | disposition home or self-care (01) ==
LOC: ER 10:26
DX: R10.84 Generalized abdominal pain (principal); I10 Essential (primary) hypertension; K21.9 Gastro-esophageal reflux disease without esophagitis; Z88.5 Allergy status to narcotic agent; Z88.8 Allergy status to other drugs, medicaments and biological substances
CPT/HCPCS: 93005; 87040 ×2; 87088; 85025; 87086; 80048; 36415; 83735; 85610; 80076; 83605; 81003; 84484; 84145; 83880; 74177; 71045; 99284; Q9967; J7040

== ENCOUNTER 2020-09-17 08:02 | Day surgery (SDC) | payer OTHER ==
--- OUTSIDE RECORDS SUMMARY | 2020-09-17 08:06 | XMS REPORT | Continuity of Care Document ---
:1955 Author Organization [facility] t Address [address] [place] [address] Care Team Providers Name Role Phone Victor Hugo Justice MD Primary Care Physician Victor Hugo Mcintyre MD Attending Clinician LINDA MCKEON Attending Clinician Unavailable LINDA MCKEON Admitting Clinician Unavailable Payers Payer Name Policy Type Policy Number Effective Date Expiration Date S ource Problems This patient has no known problems. Allergies, Adverse Reactions, Alerts Allergy Allergy Status Severity Reaction(s) Onset Inactive Treating Comm ents Source Name Type Date Date Clinician Aurea Nuñez Active Anaphylaxis 2019-[address] [facility] 4-29 [facility] reaction 00 [facility] s Butorpha Propensi Active Anaphylaxis 2019-[address] nol ty to 4-29 [facility] - Tartrate adverse 00:00: Medical reaction 00 Center s Stadol Adverse Active Info Not [facility] Reaction Available [facility]ics Magnesiu Adverse Active Info Not [facility] m Reaction Available [facility] Social History Social Habit Start Date Stop Date Quantity Comments Source History [facility] Std Drinks [facility] Center [facility] Binge Medical [address] [facility] Sex Assigned At [facility] kecathy - [facility] Tobacco use and 2018-12-28 2018-12-28 Never used [facility] kes - exposure 00:00:00 00:00:00 [facility] Alcohol intake 2018-12-28 2018-12-28 [facility] non-drinker of Medical Ce nter alcohol (finding) History [facility] 2018-12-27 2018-12-[address] [facility] - Alcohol Frequency 00:00:00 00:00:00 [facility] Tobacco Comment 2018-12-27 2018-12-27 quit 2 yrs ago [facility] - 00:00:00 00:00:00 [facility] Smoking Status Start Date Stop Date Source Former smoker 2018-12-28 00:00:00 2018-12-28 00:00:00 [facility] Medications Ordered Filled Start Stop Current Ordering Indication Dosage Frequency Signature Comments Components Source Medication Medication Date Date Medication? Clinician (SIG) Name Name aspirin 81 2018- Yes 81mg QD Take [address] MG EC 4-30 by mouth [facility] - tablet 10:34: daily. [address] ALPRAZolam 2018- Yes .5mg Take 0.[address] (XANAX) 0.5 4-30 mg by [facility] - MG tablet 10:34: mouth 3 Medic al 04 (three) Center times daily as needed for Anxiety. albuterol 2018- Yes 2.5mg Take 2.[address] (PROVENTIL) 4-30 mg by [facility] - 2.5 mg/0.5 10:34: nebulizati M edical mL Nebu 04 on every 6 Center nebulizer (six) solution hours as needed. predniSONE 2018- Yes 5mg QD Take [address] (DELTASONE) 4-30 by mouth Luke s - 5 MG tablet 10:34: daily. Medi josé miguel 04 Center budesonide- 2019-0 Yes 2{puff} Q.5D Inhale [address] formoterol 4-30 puffs by [facility] - (SYMBICORT) 10:34: mouth via M edical 160-4.5 04 inhaler 2 Center mcg/actuati (two) on inhaler times daily. amLODIPine 2019 Yes 5mg QD Take [address] (NORVASC) 5 4-30 by mouth Luke s - MG tablet 10:34: daily. Medica l 04 Center tiotropium 0 Yes 18ug Q.5D Inhale [address] (SPIRIVA) 4-30 mcg by [facility] - 18 mcg 10:34: mouth via Medica l inhalation 04 inhaler 2 Cent er capsule (two) times daily. HYDROcodone Yes 1{tbl} Take [address] [...] Center capsule needed for Constipati on. psyllium 2019- Yes .52g Take 0.[address] 0.52 gram 4-30 g by mouth Luke s - capsule 10:34: every 7 Medical 04 days. Center pantoprazol 0 Yes 20mg QD Take [address] e 4-30 by mouth [facility] - (PROTONIX) 10:34: daily. Medic al 20 MG 04 Center tablet cetirizine Yes 10mg Take [address] (ZYRTEC) 10 4-30 by mouth Luke s - MG tablet 10:34: daily as Medi josé miguel 04 needed for Center Allergies. promethazin 2019- Yes 5mL Take [address] e-codeine 4-30 by mouth [facility] - (PHENERGAN 10:34: every 4 Medi josé miguel WITH 04 (four) Center CODEINE) hours as 6.25-10 needed for mg/5 mL Cough. syrup gabapentin Yes 100mg QD Take [address] (NEURONTIN) 4-30 mg by [facility] - 100 MG 10:34: mouth Medical capsule 04 daily. Center OXYGEN-AIR 2018- Yes by [facility] DELIVERY 4-30 Miscellane [facility] - SYSTEMS 10:34: ous route. Medi josé miguel MIS 04 Center Butrans Butrans Yes Na [...] [facility] Yes Na Guido [address] Allergy Allergy [facility] [place] Yes Na Guido [address] [...] [facility] Yes Na Guido 1 tablet CH I [...] [facility] - Test 00:00:00 (#1) [code = Medical Center INFLUENZA VACCINE (#1)] Future Scheduled [address] [facility] - Test 00:00:00 (procedure) [[facility] 53235591] Future Scheduled [address] [facility] - Test 00:00:00 malignant neoplasm Medical C enter of cervix (procedure) [code = 039484536] Future Scheduled [address] - Test 00:00:00 malignant neoplasm Medical C enter of breast (procedure) [code = 696490263] Future Scheduled [address] [facility] - Test 00:00:00 malignant neoplasm Medical C enter of colon (procedure) [code = 567729119] Encounters Start End Encounter Admission Attending Care Care Encounter Source Date/Time Date/Time Type Type Clinicians Facility Department ID 2020-08-17 2020-08-17 Telephone [facility] [id number] 00:00:00 00:00:[address] [facility] [id number] [facility] [id number] Professio [id number] nal [address] 2020-08-15 2020-08-15 Office [facility] [id number] 15:29:43 16:05:45 Visit [facility] [id number] [facility] [id number] Professio [id number] nal 044 Office [address] 2020-05-21 2020-05-21 [facility] [id number] 2020-05-21 2020-05-21 [facility] [id number] 2018-11-08 2018-11-08 [facility] [id number] 11:45:00 11:45:00 [facility] [place] [facility] Results Test Description Test Time Test Comments Results Result Sourc e Comments FINE NEEDLE Medical Cytology Report ASPIRATION BY 1 CLINICIAN 16:25:00 Case: [id number] Authorizing Provider: AnjelmanuelHolly Jessebo Collected: 12/28/2018 Patsy Estrella MD Ordering Location: [facility] Endoscopy Received: 12/28/2018 1103 Services Pathologist: Salvador Begum MD Specimen: Pancreas PANCREAS CYST FNA BY CLINICIAN (CYTOSPINS AND CELL BLOCK OF ASPIRATE): - NEGATIVE FOR MALIGNANCY - The mucin stain is negative Signing Pathologist Direct Phone Line: [phone] signed by Salvador Begum MD on 12/29/2018 at 4:25 PMThe mucin stain is negative and the control slide shows positive staining as expected.[id number], [id number], [id number] cysts in the pancreas, largest measuring 2.0 cmPANCREAS CYST FNA27 mls in cytorich red; 4 cytospins, 1 mucin stain, cell blockCollected: [id number]: [id number] interpretation of this case included the use of immunohistochemistry or special stains. MUCINImmunohistochemistry technical testing was performed at [facility], Pathology Laboratory where it was developed and [...] qualified to perform high complexity clinical laboratory testing.[facility], Department of Pathology, [address] [place] [address], [facility], [address] [place] [address], [facility], [address] [place] [address], TISSUE EXAM Surgical Pathology Report 1 10:28:00 Case: [id number] Authorizing Provider: LindaHolly Linda Collected: 12/28/2018 0924 MD Delores Ordering Location: [facility] Endoscopy Received: 12/28/2018 1253 Services Pathologist: Kurtis Luna MD Specimen: Ampulla PART A AMPULLARY BIOPSY:PARTIALLY DENUDED NON-NEOPLASTIC SMALL INTESTINAL MUCOSA WITHOUT SIGNIFICANT HISTOPATHOLOGIC ALTERATION.NEGATIVE FOR DYSPLASIA OR INVASIVE CARCINOMA. Signing Pathologist Direct Phone Line: [phone] signed by Kurtis Luna MD on 12/29/2018 at 10:28 [id number] pancreatic lesionampullaThe container is labeled "ampulla" and [...] this type of specimen.FINE NEEDLE ASPIRATE (FNA) [id number] 13:00:00 Test Item Value Reference Range Interpretation Comments CYTOLOGY RESULT POINTER See Separate Report (BEAKER) (test code = 2629)
--- OUTSIDE RECORDS SUMMARY | 2020-09-17 08:06 | XMS REPORT | Clinical Summary ---
:1955 Author Organization [facility] Address [address] [place] [address] Care Team Providers Name Role Phone Guille Justice MD Primary Care Provider [phone] Allergies Active Allergy Reactions Severity Noted [...] VACCINE (#1) 2020 Results Not on fileafter 09/17/2019 Insurance Payer Benefit Plan Subscriber ID Effective Dates Phone Address Type / Group MEDICAID - [facility] COMM [id number] 2018-Gumaro h[place]inson MEDICAID [facility] STAR PLAN [facility]
--- OUTSIDE RECORDS SUMMARY | 2020-09-17 08:08 | XMS REPORT | Summary of Care ---
:1955 Author Organization [facility] Address [address] [place] [address] Care Team Providers Name Role Phone Victor Hugo Mcintyre MD Primary Care Provider Reason for Visit Reason Comments Erroneous encounter-disregard Encounter Details Date Type Department Care Team Description 08/15/2020 [facility]phone [facility] encounter-disregard [address] [place] [address] [place] [phone] Allergies Active Allergy Reactions Severity Noted Date Comments Butorphanol Tartrate Unknown - See comments, High 6 Seizures per pt Anaphylaxis Magnesium Nausea and/or Vomiting, High 11/02/2014 Liqu id form Anaphylaxis documented as of this encounter (statuses as of 08/15/2020) Medications Medication Sig Dispensed Refills Start Date End Date Status AMLODIPINE 5 MG ORAL take one tab PO 30 1 06/18/2007 Active TABIndications: daily Essential hypertension, benign DICYCLOMINE HCL Take by mouth. 0 Active (DICYCLOMINE ORAL) FLUTICASONE/VILANTER Inhale. 0 Active OL (BREO ELLIPTA INHALE) LACTULOSE ORAL Take by mouth. 0 Active ALBUTEROL SULFATE Inhale. 0 Ac tive (PROVENTIL INHALE) TIOTROPIUM BROMIDE Inhale. 0 A ctive (SPIRIVA RESPIMAT INHALE) IPRATROPIUM BROMIDE Inhale. 0 Active INHALE MOMETASONE FUROATE Use in each 0 Active (NASONEX NASAL) nostril. predniSONE Take 1 tablet by 30 tablet 0 12/31/2015 A ctive (DELTASONE) 10 mg mouth daily. tablet aspirin 81 mg EC Take 81 mg by mouth. 0 Active tablet SYMBICORT 160-4.5 TAKE 2 PUFFS BY 1 01/10/2019 Active mcg/actuation MOUTH TWICE A DAY inhaler buprenorphine 10 APPLY ONE PATCH TO 0 02/02/2019 Active mcg/hour patch SKIN ONCE A WEEK FOR 28 DAYS docusate 100 mg Take 200 mg by 0 Active capsule mouth. promethazine-codeine Take 5 mL by mouth. 0 Active 6.25-10 mg/5 mL syrup pantoprazole 40 mg Take 40 mg by mouth 0 Active EC tablet daily. HYDROcodone-acetamin Take 1 tablet by 0 Active ophen 7.5-325 mg per mouth 3 (three) tablet times daily. ALPRAZolam 1 mg Take 1 mg by mouth 3 0 05/14/2020 Active tablet (three) times daily. OXYGEN-AIR DELIVERY by Miscellaneous 0 Active SYSTEMS MISC route. LORazepam 1 mg Take 1 tablet by 90 tablet 0 06/20/2020 Active tabletIndications: mouth 3 (three) Anxiety times daily as needed for Anxiety or Agitation. documented as of this encounter (statuses as of 08/15/2020) Active Problems Problem Noted Date COPD exacerbation 12/30/2015 Symptomatic menopausal or female climacteric states Essential hypertension, benign 02/02/2007 Chronic airway obstruction, not elsewhere classified 0 02/02/2007 Spinal stenosis, unspecified region other than cervica l 02/02/2007 documented as of this encounter (statuses as of 08/15/2020) Social History Tobacco Use Types Packs/Day Years Used Date Former Smoker Cigarettes 0.5 25 Smokeless Tobacco: Never Used Alcohol Use Drinks/Week oz/Week Comments Yes social drinker Sex Assigned at Date Recorded Not on file documented as of this encounter Last Filed Vital Signs Not on filedocumented in this encounter Miscellaneous Notes Telephone Encounter - Haven Alexandra - 08/15/2020 9:13 AM CSTerror documented in this encounter Plan of Treatment Date Type Specialty Care Team Description 08/15/2020 Office Visit Family Medicine Mj Mcintyre MD [address] [place], [place] [phone] Health Maintenance Due Date Last Done Comments PNEUMOCOCCAL 0-64 YEARS COMBINED SERIES (1 of 1 - 1961 PPSV23) DTaP,Tdap,and Td Vaccines (1 - Tdap) 1974 PAP SMEAR 1976 Breast Cancer Screening (MAMMOGRAM) 1995 COLON CANCER SCREENING ANNUAL FIT/FOBT 2005 COLON CANCER SCREENING FIT DNA EVERY 3 YEARS 2005 COLON CANCER SCREENING SIGMOIDOSCOPY EVERY 5 YEARS 2005 COLONOSCOPY 2005 Colorectal Cancer Screening 2005 Zoster Recombinant Vaccine (SHINGRIX) (1 of 2) 2005 LUNG CANCER SCREEN: Recommended for age 55-80 with 30 2010 + pack year history INFLUENZA VACCINE (#1) 2020 Depression Screening 06/20/2021 06/20/2020 HEPATITIS C (HCV) SCREEN Completed 08/21/2004 documented as of this encounter Results Not on filedocumented in this encounter Visit Diagnoses Diagnosis Anxiety Anxiety state, unspecified documented in this encounter Insurance Payer Benefit Plan / Subscriber ID Effective Dates Phone Addre ss Type Group [facility] STAR [id number] 2018-Present Medicaid COMM PLAN - PLUS MANAGED MEDICAID documented as of this encounter
--- OUTSIDE RECORDS SUMMARY | 2020-09-17 08:08 | XMS REPORT | Summary of Care ---
:1955 Author Organization [facility] Address [address] [place] [address] Care Team Providers Name Role Phone Victor Hugo Mcintyre MD Primary Care Provider Reason for Visit Reason Comments URINARY TRACT INFECTION Refill Request Follow-up E/R follow up Encounter Details Date Type Department Care Team Description 08/15/2020 Office Visit [facility] Family Mj Mcintyre [facility] r espiratory tract infection, unspecified type (Primary Dx); Medicine - Praneeth Gay MD Cystitis; [address] [place] [address] [place] [phone] Allergies Active Allergy Reactions Severity Noted Date Comments Butorphanol Tartrate Unknown - See comments, High 6 Seizures per pt Anaphylaxis Magnesium Nausea and/or Vomiting, High 11/02/2014 Liqu id form Anaphylaxis documented as of this encounter (statuses as of 08/15/2020) Medications Medication Sig Dispensed Refills Start End Date Status Date AMLODIPINE 5 MG take one tab PO 30 1 Active ORAL daily 7 TABIndications: Essential hypertension, benign DICYCLOMINE HCL Take by mouth. 0 Active (DICYCLOMINE ORAL) FLUTICASONE/VILAN Inhale. 0 Ac tive TEROL (BREO ELLIPTA INHALE) LACTULOSE ORAL Take by mouth. 0 Active ALBUTEROL SULFATE Inhale. 0 Ac tive (PROVENTIL INHALE) TIOTROPIUM Inhale. 0 Active BROMIDE (SPIRIVA RESPIMAT INHALE) IPRATROPIUM Inhale. 0 Active BROMIDE INHALE MOMETASONE Use in each 0 Active FUROATE (NASONEX nostril. NASAL) predniSONE Take 1 tablet by 30 tablet 0 Ac tive (DELTASONE) 10 mg mouth daily. 6 tablet aspirin 81 mg EC Take 81 mg by 0 Active tablet mouth. SYMBICORT 160-4.5 TAKE 2 PUFFS BY 1 Active mcg/actuation MOUTH TWICE A DAY 9 inhaler buprenorphine 10 APPLY ONE PATCH 0 Active mcg/hour patch TO SKIN ONCE A 9 WEEK FOR 28 DAYS docusate 100 mg Take 200 mg by 0 Active capsule mouth. promethazine-code Take 5 mL by 0 Active ine 6.25-10 mg/5 mouth. mL syrup pantoprazole 40 Take 40 mg by 0 Active mg EC tablet mouth daily. HYDROcodone-aceta Take 1 tablet by 0 Active minophen 7.5-325 mouth 3 (three) mg per tablet times daily. ALPRAZolam 1 mg Take 1 mg by 0 A ctive tablet mouth 3 (three) 0 times daily. OXYGEN-AIR by Miscellaneous 0 Ac tive DELIVERY SYSTEMS route. MISC cefUROXime 500 mg Take 1 tablet by 20 tablet 0 Active tabletIndications mouth 2 (two) 0 : Upper times daily. respiratory tract infection, unspecified type LORazepam 1 mg Take 1 tablet by 90 tablet 2 Active tabletIndications mouth 3 (three) 0 : Anxiety times daily as needed for Anxiety or Agitation. LORazepam 1 mg Take 1 tablet by 90 tablet 0 08/15/20 Discontinued tabletIndications mouth 3 (three) 0 20 (Reorder) : Anxiety times daily as needed for Anxiety [...] Assigned at Date Recorded Not on file COVID-19 Exposure Response Date Recorded In the last month, have you been in contact with No / Unsure 08/15/2020 3:28 PM WOOD REPATCHER someone who was confirmed or suspected to have Coronavirus / COVID-19? documented as of this encounter Last Filed Vital Signs Vital Sign Reading Time Taken Comments Blood Pressure 149/94 08/15/2020 3:43 PM WOOD REPATCHER Pulse 113 08/15/2020 3:43 PM WOOD REPATCHER Temperature 36.9 C (98.5 F) 08/15/2020 3:43 PM WOOD REPATCHER Respiratory Rate - - Oxygen Saturation - - Inhaled Oxygen Concentration - - Weight 67.1 kg (148 lb) 08/15/2020 3:43 PM WOOD REPATCHER Height 152.4 cm (5') 08/15/2020 3:43 PM WOOD REPATCHER Body Mass Index 28.9 08/15/2020 3:43 PM WOOD REPATCHER documented in this encounter Progress Notes Mj Mcintyre MD - 08/15/2020 3:30 PM CST CC: nasal congestion on left side Kiana is a 64 year old female URI Presenting symptoms: congestion, ear pain and rhinorrhea Presenting symptoms: no cough, no facial pain, no fatigue, no fever and no sore throat Severity: Mild Allergies Allergen Reactions Butorphanol Tartrate Unknown - See comments and Anaphylaxis Seizures per pt Magnesium Nausea and/or Vomiting and Anaphylaxis Liquid form Current Outpatient Medications Medication Sig Dispense Refill ALPRAZolam 1 mg tablet Take 1 mg by mouth 3 (three) times daily. HYDROcodone-acetaminophen 7.5-325 mg per tablet Take 1 tablet by mouth 3 (three) times daily. LORazepam 1 mg tablet Take 1 tablet by mouth 3 (three) times daily as needed for Anxiety or Agitation. 90 tablet 0 OXYGEN-AIR DELIVERY SYSTEMS MIS by Miscellaneous route. pantoprazole 40 mg EC tablet Take 40 mg by mouth daily. aspirin 81 mg EC tablet Take 81 mg by mouth. buprenorphine 10 mcg/hour patch APPLY ONE PATCH TO SKIN ONCE A WEEK FOR 28 DAYS 0 docusate 100 mg capsule Take 200 mg by mouth. promethazine-codeine 6.25-10 mg/5 mL syrup Take 5 mL by mouth. SYMBICORT 160-4.5 mcg/actuation inhaler TAKE 2 PUFFS BY MOUTH TWICE A DAY 1 predniSONE (DELTASONE) 10 mg tablet Take 1 tablet by mouth daily. 30 tablet 0 ALBUTEROL SULFATE (PROVENTIL INHALE) Inhale. DICYCLOMINE HCL (DICYCLOMINE ORAL) Take by mouth. FLUTICASONE/VILANTEROL (BREO ELLIPTA INHALE) Inhale. IPRATROPIUM BROMIDE INHALE Inhale. LACTULOSE ORAL Take by mouth. MOMETASONE FUROATE (NASONEX NASAL) Use in each nostril. TIOTROPIUM BROMIDE (SPIRIVA RESPIMAT INHALE) Inhale. AMLODIPINE 5 MG ORAL TAB take one tab PO daily 30 1 No current facility-administered medications for this visit. Past Medical History: Diagnosis Date Chronic airway obstruction, not elsewhere classified Essential hypertension, benign hepatitis hep C Spinal stenosis, unspecified region other than cervical Past Surgical History: Procedure Laterality Date CHOLECYSTECTOMY CHOLECYSTOSTOMY 01/2003 Social History Socioeconomic History Marital status: Single Spouse name: Not on file Number of children: Not on file Years of education: Not on file Highest education level: Not on file Occupational History Occupation: unemployed Social Needs Financial resource strain: Not on file Food insecurity Worry: Not on file Inability: Not on file Transportation needs Medical: Not on file Non-medical: Not on file Tobacco Use Smoking status: Former Smoker Packs/day: 0.50 Years: 25.00 Pack years: 12.50 Types: Cigarettes Smokeless tobacco: Never Used Substance and Sexual Activity Alcohol use: Yes Comment: social drinker Drug use: Yes Frequency: 2.0 times per week Comment: methamphetamine, 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) Sexual activity: Not on file Lifestyle Physical activity Days per week: Not on file Minutes per session: Not on file Stress: Not on file Relationships Social connections Talks on phone: Not on file Gets together: Not on file Attends buddhist service: Not on file Active member of club or organization: Not on file Attends meetings of clubs or organizations: Not on file Relationship status: Not on file Intimate partner violence Fear of current or ex partner: Not on file Emotionally abused: Not on file Physically abused: Not on file Forced sexual activity: Not on file Other Topics Concern Not on file Social History Narrative Not on file Family History Problem Relation Age of Onset Diabetes Mother Hypertension Father Diabetes Father Heart Father Cancer Father oral cavity Review of Systems Constitutional: Negative for fatigue and fever. HENT: Positive for congestion, ear pain and rhinorrhea. Negative for sore throat. Respiratory: Negative for cough. BP (!) 149/94 | Pulse 113 | Temp 36.9 C (98.5 F) (Oral) | Ht 5' (1.524 m) | Wt 148 lb (67.1 kg) | BMI 28.90 kg/m Physical Exam Constitutional: She is oriented to person, place, and time. She appears well- developed and well-nourished. HENT: Head: Normocephalic and atraumatic. Right Ear: External ear normal. Left Ear: External ear normal. Nose: Mucosal edema and rhinorrhea present. Mouth/Throat: Oropharynx is clear and moist. No oropharyngeal exudate. Eyes: Pupils are equal, round, and reactive to light. Conjunctivae and EOM are normal. Neck: Normal range of motion. Neck supple. No JVD present. No tracheal deviation present. No thyromegaly present. Cardiovascular: Normal rate, regular rhythm, normal heart sounds and intact distal pulses. Exam reveals no gallop and no friction rub. No murmur heard. Pulmonary/Chest: Effort normal and breath sounds normal. No respiratory distress. She has no wheezes. She has no rales. She exhibits no tenderness. Abdominal: Soft. Bowel sounds are normal. She exhibits no distension and no mass. There is no abdominal tenderness. There is no rebound and no guarding. Musculoskeletal: Normal range of motion. General: No tenderness or edema. Lymphadenopathy: She has no cervical adenopathy. Neurological: She is alert and oriented to person, place, and time. Skin: Skin is warm and dry. POCT UA: + leukocytes Diagnosis: 1. Upper respiratory tract infection, unspecified type cefUROXime 500 mg tablet 2. Cystitis 3. Anxiety LORazepam 1 mg tablet Follow up: prn Patient Care Team: Mj Mcintyre MD as PCP - General ([facility]) Plan of care, desired health behaviors, goals,& medication discussed with patient. Education resources & self management tools provided and reviewed with AVS. Patient/guardian/family verbalized understanding & agrees to plan of care. Barriers to care: None Ability to manage care: Good documented in this encounter Plan of Treatment Health Maintenance Due Date [...] filedocumented in this encounter Visit Diagnoses Diagnosis Upper respiratory tract infection, unspe cified type - Primary Cystitis Cystitis, unspecified Anxiety Anxiety state, unspecified documented in this encounter Insurance Payer Benefit Plan / Subscriber ID Effective Dates Phone Addre ss Type Group [facility] STAR [id number] 2018-Present Medicaid COMM PLAN - PLUS MANAGED MEDICAID documented as of this encounter"
--- OUTSIDE RECORDS SUMMARY | 2020-09-17 08:08 | XMS REPORT | Summary of Care ---
:1955 Author Organization [facility] Address [address] [place] [address] Care Team Providers Name Role Phone Victor Hugo Mcintyre MD Primary Care Provider Reason for Visit Reason Comments URINARY TRACT INFECTION Refill Request Follow-up E/R follow up Encounter Details Date Type Department Care Team Description 08/15/2020 Office Visit [facility] Family Mj Mcintyre [place] [facility] r espiratory tract infection, unspecified type (Primary Dx); Medicine - Praneeth Gay MD Cystitis; [address] [place] [address] [place] [phone] Allergies Active Allergy Reactions Severity Noted Date [...] with No / Unsure 08/15/2020 3:28 PM UI UX DEVELOPER someone who was confirmed or suspected to have Coronavirus / COVID-19? documented as of this encounter Last Filed Vital Signs Vital Sign Reading Time Taken Comments Blood Pressure 149/94 08/15/2020 3:43 PM UI UX DEVELOPER Pulse 113 08/15/2020 3:43 PM UI UX DEVELOPER Temperature 36.9 C (98.5 F) 08/15/2020 3:43 PM UI UX DEVELOPER Respiratory Rate - - Oxygen Saturation - - Inhaled Oxygen Concentration - - Weight 67.1 kg (148 lb) 08/15/2020 3:43 PM UI UX DEVELOPER Height 152.4 cm (5') 08/15/2020 3:43 PM UI UX DEVELOPER Body Mass Index 28.9 08/15/2020 3:43 PM UI UX DEVELOPER documented in this encounter Progress Notes Mj [...] file Gets together: Not on file Attends jew service: Not on file Active member of [...] Effective Dates Phone Addre ss Type Group [facility] STAR [id number] 2018-Present Medicaid COMM PLAN - PLUS MANAGED MEDICAID documented as of this encounter"
--- OUTSIDE RECORDS SUMMARY | 2020-09-17 08:09 | XMS REPORT | Summary of Care ---
:1955 Author Organization [facility] Address [address] [place] [address] Care Team Providers Name Role Phone Victor Hugo Mcintyre MD Primary Care Provider Reason for Visit Reason Comments Assessment Encounter Details Date Type Department Care Team Description 08/17/2020 Telephone [facility] Family Medicine Mj Swain MD Assessment - [address] [place] [address] Dr gates [facility] [place] [address] [place] [address] [phone] Allergies Active Allergy Reactions Severity Noted Date Comments Butorphanol Tartrate Unknown - See comments, High 6 Seizures per pt Anaphylaxis Magnesium Nausea and/or Vomiting, High 11/02/2014 Liqu id form Anaphylaxis documented as of this encounter (statuses as of 08/17/2020) Medications Medication Sig Dispensed Refills Start Date [...] by Miscellaneous 0 Active SYSTEMS MISC route. cefUROXime 500 mg Take 1 tablet by 20 tablet 0 08/15/2020 Active tabletIndications: mouth 2 (two) times Upper respiratory daily. tract infection, unspecified type LORazepam 1 mg Take 1 tablet by 90 tablet 2 08/15/2020 Active tabletIndications: mouth 3 (three) Anxiety times daily as needed for Anxiety or Agitation. documented as of this encounter (statuses as of 08/17/2020) Active Problems Problem Noted Date COPD exacerbation 12/30/2015 Symptomatic menopausal or female climacteric states Essential hypertension, benign 02/02/2007 Chronic airway obstruction, not elsewhere classified 0 02/02/2007 Spinal stenosis, unspecified region other than cervica l 02/02/2007 documented as of this encounter (statuses as of 08/17/2020) Social History Tobacco Use Types Packs/Day Years Used Date Former Smoker Cigarettes 0.5 25 Smokeless Tobacco: Never Used Alcohol Use Drinks/Week oz/Week Comments Yes social drinker Sex Assigned at Date Recorded Not on file COVID-19 Exposure Response Date Recorded In the last month, have you been in contact with No / Unsure 08/15/2020 3:28 PM EMBROIDERY 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 documented as of this encounter Last Filed Vital Signs Not on filedocumented in this encounter Miscellaneous Notes Telephone Encounter - Mj Mcintyre MD - 08/17/2020 2:26 PM CSTTake 1/2 tab at a time twice a day elephone Encounter - Paige Andrade MA - 08/17/2020 2:22 PM CSTShe is asking for something different to be sent into pharmacy ceftin causing Abdominal cramps and diarrhea elephone Encounter - Batsheva Venegas - 08/17/2020 2:17 PM CSTPatient is stating she was prescribed cefUROXime 500 mg tablet but it is causing her to have a bad case of diarrhea. She is stating the antibiotic is to strong for her. Transferred to the clinic. documented in this encounter Plan of Treatment Date Type Specialty Care Team Description 11/14/2020 Office Visit Family Medicine Mj Mcintyre MD [address] [place] [address] [phone] Health Maintenance Due Date Last Done [...] Results Not on filedocumented in this encounter Insurance Payer Benefit Plan / Subscriber ID Effective Dates Phone Addre ss Type Group [facility] STAR [id number] 2018-Present Medicaid COMM PLAN - PLUS MANAGED MEDICAID documented as of this encounter
--- OUTSIDE RECORDS SUMMARY | 2020-09-17 08:09 | XMS REPORT | Summary of Care ---
:1955 Author Organization [facility] - [facility] Address [address] [place] [address] Care Team Providers Name Role Phone Victor Hugo Mcintyre MD Primary Care Provider Reason for Visit Reason Comments URINARY TRACT INFECTION Refill Request Follow-up E/R follow up Encounter Details Date Type Department Care Team Description 08/15/2020 Office Visit [facility] Family Mj Mcintyre [facility] r espiratory tract infection, unspecified type (Primary Dx); Medicine - Praneeth Gay MD Cystitis; [address] [place] [address] [place] [phone] Allergies Active Allergy Reactions Severity Noted Date [...] with No / Unsure 08/15/2020 3:28 PM EQUIPMENT COORDINATOR someone who was confirmed or suspected to have Coronavirus / COVID-19? documented as of this encounter Last Filed Vital Signs Vital Sign Reading Time Taken Comments Blood Pressure 149/94 08/15/2020 3:43 PM EQUIPMENT COORDINATOR Pulse 113 08/15/2020 3:43 PM EQUIPMENT COORDINATOR Temperature 36.9 C (98.5 F) 08/15/2020 3:43 PM EQUIPMENT COORDINATOR Respiratory Rate - - Oxygen Saturation - - Inhaled Oxygen Concentration - - Weight 67.1 kg (148 lb) 08/15/2020 3:43 PM EQUIPMENT COORDINATOR Height 152.4 cm (5') 08/15/2020 3:43 PM EQUIPMENT COORDINATOR Body Mass Index 28.9 08/15/2020 3:43 PM EQUIPMENT COORDINATOR documented in this encounter Progress Notes Mj [...] file Gets together: Not on file Attends mandaeism service: Not on file Active member of [...] manage care: Good documented in this encounter Miscellaneous Notes Addendum Note - Paige Andrade MA - 08/15/2020 3:30 PM EQUIPMENT COORDINATOR Addended by: PAIGE ANDRADE on: 08/15/2020 04:13 PM Modules accepted: Orders PMENT COORDINATOR documented in this encounter Plan of Treatment Date Type Specialty Care Team Description 11/14/2020 Office Visit Family Medicine Mj Mcintyre MD [address] [place] [address] [phone] Health Maintenance Due Date Last Done [...] Completed 08/21/2004 documented as of this encounter Procedures Procedure Name Priority Date/Time Associated Diagnosis Comme nts POCT URINALYSIS Routine 08/15/2020 Cystitis Results for this procedure are in the resu lts section. documented in this encounter Results POCT URINALYSIS W SPECIFIC GRAVITY (08/15/2020) Pathologist Sig nature POCT U SP GRAV 1.000 (A) 1.005 - 1.025 mg/dl POCT PH U 7 5 - 8 mg/dl POCT U LEUK EST trace Negative - Negative POCT U NIT neg Negative - Negative POCT U PROT trace Negative - Negative POCT U GLU neg Negative - Negative POCT U KETONE neg Negative - Negative POCT U UROBILI normal 0.2 - 1 mg/dl POCT U BILI neg Negative - Negative POCT U BLD trace Negative - Negative POCT U COLOR pale POCT U APPEAR clear Specimen Urine - URINE, CLEAN CATCH documented in this encounter Visit Diagnoses Diagnosis Upper respiratory tract infection, unspe cified type - Primary Cystitis Cystitis, unspecified Anxiety Anxiety state, unspecified documented in this encounter Insurance Payer Benefit Plan / Subscriber ID Effective Dates Phone Addre ss Type Group [facility] [id number] 2018-Present Medicaid COMM PLAN - PLUS MANAGED MEDICAID documented as of this encounter"
[2020-09-17] MEDS ORDERED: Ringers Lactate 1,000 ML IV ONE (08:21)
[2020-09-17] MEDS ORDERED: LIDOCAINE 1% MPF 5 ML VIAL ONE (09:35)
[2020-09-17] MEDS ORDERED: propofoL 200 MG/20 ML VIAL IV ONE (09:35)
--- NOTE | 2020-09-17 11:13 | OP ---
Surgeon: Maykel Rader MD Procedure Performed: Colonoscopy. Indication For Procedure: Abdominal pain, constipation. Plan For Anesthesia: Monitored anesthesia care. Complexity: High due to patient's pulmonary status. Technique: After obtaining informed consent from the patient explaining risks and complications, whi ch include, but are not limited to bleeding, infection, perforation, and anesthesia complication. Pa tient was placed in a left lateral position and sedation was given. A digital rectal exam was perfor med. The anoscope was inserted into the rectum and carefully guided to the cecum. The cecum was carloz ntified by the appendiceal orifice and ileocecal valve. Scope withdrawal time was 11 minutes. Quali ty of prep was fair. Findings: Diminutive polyp was seen in the ascending colon. This was removed with cold forceps biop sy polypectomy. Very rare scattered diverticula seen in the entire colon. Retroflexion revealed gra de 2 internal hemorrhoids. Additionally, in the rectum the mucosa had patches of white texture on it . Multiple biopsies were taken from this area. Complications: None. Tolerance To Anesthesia: Excellent. Postoperative Diagnoses: Polyps, rare diverticulosis, abnormal rectal mucosa. Plan: Await pathology results. EGD to be scheduled. Follow up in the GI clinic in 2 weeks. US/MODL Voice ID: [id number] Report ID: [id number]
[2020-09-17 11:31] VITALS: BP 113/82; TEMP 97.6; O2SAT 100
== END 2020-09-17 11:00 | disposition home or self-care (01) ==
LOC: OR 08:02
PROVIDERS: ATTEND Internal Medicine Gastroenterology
PROC: 0DBP8ZX Excision of Rectum, Via Natural or Artificial Opening Endoscopic, Diagnostic (ICD-10-PCS; 2020-09-17)
PROC: 0DBK8ZX Excision of Ascending Colon, Via Natural or Artificial Opening Endoscopic, Diagnostic (ICD-10-PCS; principal; 2020-09-17 09:15)
DX: K63.5 Polyp of colon (principal); K59.00 Constipation, unspecified; K21.9 Gastro-esophageal reflux disease without esophagitis; K74.60 Unspecified cirrhosis of liver; R11.0 Nausea; K86.9 Disease of pancreas, unspecified; Z20.822 Contact with and (suspected) exposure to COVID-19
CPT/HCPCS: 88305; 45380; U0002 ×2; J2704; J7120

== ENCOUNTER 2020-12-27 12:50 | Inpatient (IN) | payer OTHER ==
--- OUTSIDE RECORDS SUMMARY | 2020-12-27 12:53 | XMS REPORT | Continuity of Care Document ---
:1955 Author Organization [facility] t Address [address] [place] [address] Care Team Providers Name Role Phone Victor Hugo Justice MD Primary Care Physician Victor Hugo Mcintyre MD Attending Clinician Valentin NO Attending Clinician Unavailable Broderick Curry Attending Clinician LINDA MCKEON Attending Clinician Unavailable [...] Liquid [facility] m ty to 429 form [facility] - adverse 00:00: Medical reaction 00 Center s Butorpha Propensi Active Anaphylaxis 2019-[address] nol ty to 12-27 [facility] - Tartrate adverse 00:00: Medical reaction 00 Center s Stadol Adverse Active Info Not [facility] Reaction Available [facility] Magnesiu Adverse Active Info Not [facility] Reaction [facility] Social History Social Habit Start Date Stop Date Quantity Comments Source Sex Assigned At [facility] prem [facility] History SDOH [facility] Std Drinks [facility] Center History SDOH [facility] - Alcohol Binge Medical Lyle ter Tobacco use and 2018-12-28 2018-12-28 Never used [facility] kes - exposure 00:00:00 00:00:00 [facility] Alcohol intake 2018-12-28 2018-12-[address] [facility] Cat es - 00:00:00 00:00:00 non-drinker of Medical Ce nter alcohol (finding) Tobacco Comment 2018-12-27 2018-12-27 quit 2 [facility]rs [facility] - 00:[facility]:00 00:00:00 [facility] History SDOH 2018-12-27 2018-12-27 1 [facility] - Alcohol Frequency 00:00:00 00:00:00 [facility] Smoking Status Start Date Stop Date Source Former smoker 2018-12-28 00:00:00 2018-12-28 00:00:00 [facility] Medications Ordered Filled Start Stop Current Ordering Indication Dosage Frequency Signature Comments Components Source Medication Medication Date Date Medication? Clinician (SIG) Name Name aspirin 81 2018- Yes 81mg QD Take [address] MG EC 4-30 by mouth [facility] - tablet 10:34: daily. [address] ALPRAZolam 2018- Yes .5mg Take 0.5 [...] s - 5 MG tablet 10:34: daily. [facility] josé miguel 04 Center budesonide- 2019- Yes 2{puff} Q.5D Inhale [address] formoterol 4-30 puffs by [facility] - (SYMBICORT) 10:34: mouth via M edical 160-4.5 04 inhaler 2 Center mcg/actuati (two) on inhaler times daily. amLODIPine Yes 5mg QD Take 5 mg CH [...] Miscellane [facility] - SYSTEMS 10:34: ous route. [facility] 04 Center Butrans Butrans Yes Na Guido [...] [facility] Yes Na Guido [address] Allergy Allergy [facility] [place] Yes Na Guido [address] [...] [facility] Yes Na Guido 1 tablet CH I [...] s - Test 00:00:00 (procedure) [code = Medical Center [id number]] Future Scheduled [address] Cat es - Test 00:00:00 malignant neoplasm Medical C enter of cervix (procedure) [code = 862848574] Future Scheduled [address] [facility] Cat es - Test 00:00:00 malignant neoplasm Medical C enter of breast (procedure) [code = 281885277] Future Scheduled [address] [facility] Cat es - Test 00:00:00 malignant neoplasm Medical C enter of colon (procedure) [code = 853408517] Encounters Start End Encounter Admission Attending Care Care Encounter Source Date/Time Date/Time Type Type Clinicians Facility Department ID 2020-12-27 2020-12-27 Telephone [facility] [id number] 00:00:00 00:00:00 [facility] [id number] Victor Hugo Kiester [id number] Professio [id number] nal [address] 2020-12-13 2020-12-13 Case Radha Hanson [id number] 00:00:00 00:00:00 Management Margie Simmons [id number] [place] [id number] 2020-12-11 2020-12-11 [facility] [id number] 14:17:31 23:59:00 Encounter [facility] [id number] Surgical [id number] Specialti [id number] es 809 [place] 2020-12-11 2020-12-11 Office [facility] [id number] 14:05:22 14:20:22 Visit [facility] [id number] Surgical [id number] Specialti [id number] nnamdi Dacosta 2020-05-21 2020-05-21 [facility] [id number] 2020-05-21 2020-05-21 [facility] [id number] 2018-11-08 2018-11-08 [facility] [id number] 11:45:00 11:45:00 [employer] [facility] [facility] Results Test Description Test Time Test Comments Results Result Sour e Comments FINE NEEDLE Medical Cytology Report ASPIRATION BY 1 CLINICIAN 16:25:00 Case: [id number] Authorizing Provider: Holly Mckeon Collected: 12/28/2018 09Glenis Estrella MD Ordering Location: [facility] Endoscopy Received: 12/28/2018 1103 Services Pathologist: Salvador Begum MD Specimen: Pancreas PANCREAS CYST FNA BY CLINICIAN (CYTOSPINS AND CELL BLOCK OF ASPIRATE): - NEGATIVE FOR MALIGNANCY - The mucin stain is negative Signing Pathologist Direct Phone Line: [phone] signed by Salvador Begum MD on 12/29/2018 at 4:25 PMThe mucin stain is negative and the control slide shows positive staining as expected.[id number], [id number], 44108Ukcu cysts in the pancreas, largest measuring 2.0 cmPANCREAS CYST FNA27 mls in cytorich red; 4 cytospins, 1 mucin stain, cell blockCollected: [id number]: [id number] interpretation of this case included the use of immunohistochemistry or special stains. MUCINImmunohistochemistry technical testing was performed at [facility], Pathology Laboratory where it was developed [...] qualified to perform high complexity clinical laboratory testing.[facility], Department of Pathology, [address] [place] [address], [facility], [facility] of [facility]ology, [address] [place] [address], [facility], Department of [facility]ology, [address] [place] [address]20, TISSUE EXAM Surgical Pathology Report 1 10:28:00 Case: [id number] Authorizing Provider: Holly Mckeon Collected: 12/28/2018 0924 MD Delores Ordering Location: [facility] Endoscopy Received: 12/28/2018 1253 Services Pathologist: Kurtis Luna MD Specimen: Ampulla PART A AMPULLARY BIOPSY:PARTIALLY DENUDED NON-NEOPLASTIC SMALL INTESTINAL MUCOSA WITHOUT SIGNIFICANT HISTOPATHOLOGIC ALTERATION.NEGATIVE FOR DYSPLASIA OR INVASIVE CARCINOMA. Signing Pathologist Direct Phone Line: [phone] signed by Kurtis Luna MD on 12/29/2018 at 10:28 [id number] pancreatic lesionampullaThe container is labeled "ampulla" and [...] this type of specimen.FINE NEEDLE ASPIRATE (FNA) [id number] 13:00:00 Test Item Value Reference Range Interpretation Comments CYTOLOGY RESULT POINTER See Separate Report (BEAKER) (test code = 2629)
[2020-12-27 14:48] LABS: Blood Gas Oxyhemoglobin 97.6 % (94-97); Blood O2 Saturation 99.6 % (92-98.5)
--- NOTE | 2020-12-27 16:01 | RAD REPORT ---
EXAM DESCRIPTION: RAD - Chest Single View - 12/27/2020 3:19 pm CLINICAL HISTORY: SOB COMPARISON: Portable July 2020 TECHNIQUE: AP portable chest image was obtained 12/27/2020 3:19 pm . FINDINGS: Interstitial opacification is present throughout both lung mathews similar to comparison. T his is believed to be baseline fibrosis. No acute infiltrate or mass lesion. No acute failure finding . Mild edema or infiltrate can be masked by the chronic pattern. Heart and vasculature are normal. No measurable pleural effusion and no pneumothorax. No acute bony abnormality seen. No acute aortic findings suspected. IMPRESSION: Chronic interstitial lung disease similar to July 2020. Severity of chronic disease could potentially mask early edema or infiltrate.
[2020-12-27 16:02] LABS: Absolute Lymphocytes (CBC) 1.3 K/uL (0.7-4.9); Basophils % 0.5 % (0-1.3); Lymphocytes % 21.1 % (15.3-44.8); MPV 9.2 fL (7.6-11.3); RBC Red Blood Cell Count 3.65 M/uL (3.86-4.86)
[2020-12-27 16:03] LABS: SARS-COV-2 RT PCR NEGATIVE (NEGATIVE)
[2020-12-27] MEDS ORDERED: HYDROCODONE/APAP 7.5/325 MG TAB ONE (16:12)
[2020-12-27 16:13] LABS: Protime INR 1.24
[2020-12-27 16:32] LABS: ALT/SGPT 15 U/L (12-78); AST/SGOT 8 U/L (15-37); Albumin 3.1 g/dL (3.4-5.0); Alkaline Phosphatase 61 U/L (45-117); BUN Blood Urea Nitrogen 2 mg/dL (7-18); Bicarbonate 41 mmol/L (21-32); Bilirubin Direct < 0.1 mg/dL (0-0.2); Bilirubin Total 0.2 mg/dL (0.2-1.0); Glucose Level 104 mg/dL (74-106); Magnesium 1.8 mg/dL (1.8-2.4); NT PRO-BNP 18 pg/mL (<125); Potassium 3.3 mmol/L (3.5-5.1); Protein, Total 6.7 g/dL (6.4-8.2); Sodium Level 143 mmol/L (136-145); Troponin (Emerg Dept Use Only) < 0.02 ng/mL (0.0-0.045)
[2020-12-27] MEDS ORDERED: METHYLPREDNISOLONE 125 MG INJ ONE (16:36)
--- NOTE | 2020-12-27 16:56 | RAD REPORT ---
EXAM DESCRIPTION: CT - Chest For Pe Angio - 12/27/2020 4:38 pm CLINICAL HISTORY: SOB abnormal labs hx of acid reflux, COPD, anxiety, hypertension COMPARISON: CR; Chest12/27/2020 CT; Thorax^01_Routine_Chest (Adult) 11/08/2015; CT; Thorax^01_PE (Adult) 08/17/2012 TECHNIQUE: Dynamically enhanced 3 mm thick images of the chest were obtained during administration o f approximately 150mL Isovue 370 IV contrast. Coronal and oblique MIP reconstruction images were gene rated and reviewed. Exam utilizes a protocol to evaluate the pulmonary arterial tree. All CT scans are performed using dose optimization technique as appropriate and may include automated exposure control or mA/KV adjustment according to patient size. FINDINGS: No pulmonary emboli are identified. The aorta as imaged shows no acute or suspicious finding. No pericardial thickening or effusion. No infiltrate or mass in the lung parenchyma.COPD no significantly progressive from old studies. No p leural effusion or pleural thickening. No mediastinal or hilar suspicious masses. No chest wall masses or abnormal axillary lymphadenopathy. IMPRESSION: No pulmonary emboli identified. COPD not significantly different from older studies.
[2020-12-27] MEDS ORDERED: ACETAMINOPHEN 500 MG TAB PO PRN (17:26)
--- NOTE | 2020-12-27 17:32 | P.HP ---
Certification for Inpatient Patient admitted to: Observation With expected LOS: <2 Midnights Patient will require the following post-hospital care: None Practitioner: I am a practitioner with admitting privileges, knowledge of patient current condition, hospital course, and medical plan of care. Services: Services provided to patient in accordance with Admission requirements found in Title 42 Section 412.3 of the Code of Federal Regulations Patient History Date of Service: 12/27/20 Reason for admission: COPD exacerbation. History of Present Illness: 65 y o female pt with hx of COPD, hypertension, anxiety who came to the ED with c/o cough, sob, feeling of chest tightness and lethargy. She started having these symptoms yesterday but this got worse today. she does have cough and congestion. She denied chest pain, n/v, falls, fever, chills. CXR done in the ED was not concerning and her ABG was poor with pCO2 of 88 and pH of 7.31. she was started on breathing treatment and was asked to be admitted for observation due to her COPD exacerbation. Allergies butorphanol tartrate [From Stadol] Allergy (Severe, Verified 08/30/20 11:55) seizures magnesium sulfate Allergy (Severe, Verified 08/30/20 11:55) Anaphylaxis Home Medications: ALPRAZolam [Xanax*] 1 mg PO TIDP PRN 08/12/12 Amlodipine Besylate [Norvasc] 5 mg PO [id number] 08/12/12 Pantoprazole Sodium [Protonix] 40 mg PO DAILY 08/12/12 Albuterol Sulfate [Albuterol Sulfate 0.083% Neb Soln] 2.5 mg IH Q4H PRN #120 units 12/21/15 Buprenorphine [Butrans] 1 each TD EVERY 7TH DAY 07/02/17 Fluticasone Propionate [Flonase Allergy Relief] 9.9 ml NS DAILY 07/02/17 predniSONE [Prednisone*] 10 mg PO DAILY 07/02/17 Ipratropium/Albuterol Sulfate [Iprat-Albut 0.5-3(2.5) mg/3 ml] 3 ml IH QID 10/08/17 - Past Medical/Surgical History Diabetic: No -: Hypertension -: Hepatitis C -: COPD -: Anxiety -: Hernia -: home 02 -: Cholecystectomy -: Right ankle surgery -: Hernia Repair - Social History Alcohol use: No CD- Drugs: Yes Caffeine use: Yes Review of Systems General: Weakness, Malaise Eyes: Unremarkable ENT: Nose Congestion Respiratory: Cough, Shortness of Breath, Sputum Cardiovascular: Unremarkable Gastrointestinal: Unremarkable Genitourinary: Unremarkable Musculoskeletal: Unremarkable Integumentary: Unremarkable Neurological: Unremarkable Physical Examination - Physical Exam General: Alert, Oriented x3, Moderate distress HEENT: Atraumatic, Normocephalic Neck: Supple Respiratory: Diminished Cardiovascular: No edema, Regular rate/rhythm, Normal S1 S2 Gastrointestinal: Soft and benign Musculoskeletal: No swelling Neurological: Normal speech, Normal strength at 5/5 x4 extr, Cranial nerves 3-12 intact - Studies Laboratory Data (last 24 hrs) 12/27/20 15:40: PT 14.3 H, INR 1.24 12/27/20 15:40: WBC 6.00 D, Hgb 10.0 L, Hct 32.0 L, Plt Count 215 12/27/20 15:40: Sodium 143, Potassium 3.3 L, BUN 2 L, Creatinine 0.36 L, Glucose 104, Magnesium 1.8, Total Bilirubin 0.2, AST 8 L, ALT 15, Alkaline Phosphatase 61 Assessment and Plan - Plan 1. COPD exacerbation: She seems to have infectious exacerbation of COPD. we will start solu-medrol, levaquin and breathing treatment. we will observe her response. 2. Hypertension: we will continue amlodipine. 3. Pneumonia: Suspected due to presentation. we will start levaquin and observe. we will obtain sputum cultures if she expectorate. 4. Resp failure with hypercapnia: pCO2 is elevated at 88. We will start bipap and monitor her pH and pCO2. 5. Anxiety: We will continue prn alprazolam. Discharge Plan: Home - Advance Directives Does patient have a Living Will: No Does patient have a Durable POA for Healthcare: No
--- NOTE | 2020-12-27 17:46 | ER ---
Nurse's Notes [facility] Name: Mila Whiting Age: 65 yrs Sex: Female : 1955 Arrival Date: 12/27/2020 Time: 12:54 Bed 17 Private MD: Mj Mcintyre Diagnosis: Chronic obstructive pulmonary disease, unspecified Presentation: 12/27 13:16 Chief complaint: Patient states: Had labs drawn this morning. Was told that her CO2 ss level was 42 and to come to the hospital because she could not get ahold of her primary care doctor. HX of COPD. Pt reports she is supposed to sleep with a BIPAP at night, but doesn't like she should. Coronavirus screen: Client denies travel out of the [place] in the last 14 days. Ebola Screen: Patient denies exposure to infectious person. Patient denies travel to an Ebola-affected area in the 21 days before illness onset. Initial Sepsis Screen: Does the patient meet any 2 criteria? No. Patient's initial sepsis screen is negative. Does the patient have a suspected source of infection? No. Patient's initial sepsis screen is negative. Risk Assessment: Do you want to hurt yourself or someone else? Patient reports no desire to harm self or others. Onset of symptoms is unknown. 13:16 Method Of Arrival: Wheelchair ss 13:16 Acuity: CRISTY 3 ss Historical: - Allergies: 13:20 Stadol; ss 13:20 liquid magnesium; ss - PMHx: 13:20 acid reflux; Anxiety; COPD; Hypertension; Home O2 4 Lpm; ss - Immunization history:: Adult Immunizations not up to date. - Social history:: Smoking status: Patient/guardian denies using tobacco, but has a distant history of tobacco abuse. Screenin:12 Abuse screen: Denies threats or abuse. Nutritional screening: No deficits noted. em Tuberculosis screening: No symptoms or risk factors identified. Fall Risk None identified. Assessment: 15:30 Reassessment: Patient appears in no apparent distress at this time. Patient and/or em family updated on plan of care and expected duration. Pain level reassessed. Patient is alert, oriented x 3, equal unlabored respirations, skin warm/dry/pink. 17:00 Reassessment: Patient appears in no apparent distress at this time. Patient and/or em family updated on plan of care and expected duration. Pain level reassessed. Patient is alert, oriented x 3, equal unlabored respirations, skin warm/dry/pink. 19:30 General: Appears in no apparent distress. comfortable, Behavior is calm, cooperative. sf Pain: Denies pain. Neuro: No deficits noted. Level of Consciousness is awake, alert, Oriented to person, place, time, situation. Cardiovascular: Denies chest pain, Patient's skin is warm and dry. Rhythm is tachycardic. Respiratory: Reports shortness of breath Airway is patent Respiratory effort is even, unlabored, Respiratory pattern is regular, symmetrical, the patient has mild shortness of breath. GI: No deficits noted. No signs and/or symptoms were reported involving the gastrointestinal system. : No deficits noted. No signs and/or symptoms were reported regarding the genitourinary system. Derm: No deficits noted. No signs and/or symptoms reported regarding the dermatologic system. Musculoskeletal: No deficits noted. No signs and/or symptoms reported regarding the musculoskeletal system. Vital Signs: 13:16 BP 126 / 80; Pulse 105; Resp 17; Temp 98.3(TE); Pulse Ox 100% on 4 lpm NC; Weight 61.23 ss kg; Height 5 ft. 0 in. (152.40 cm); Pain 0/10; 16:00 BP 125 / 70; Pulse 82; Resp 16; Pulse Ox 100% on 2 lpm NC; Pain 8/10; em 17:00 BP 127 / 81; Pulse 102; Resp 18; Pulse Ox 100% on R/A; em 19:40 BP 143 / 82; Pulse 105; Resp 18; Pulse Ox 98% on 2 lpm NC; sf 13:16 Body Mass Index 26.36 (61.23 kg, 152.40 cm) ss 13:16 Home O2 ss ED Course: 12:54 Patient arrived in ED. mr 12:54 Mj Mcintyre MD is Private Physician. mr 13:19 Triage completed. ss 13:20 Arm band placed on right wrist. ss 14:11 Juan Alberto Navarro, CARLOS is Primary Nurse. em 14:13 Zaheer Mendez PA is PHCP. cp 14:13 Damian Batista MD is Attending Physician. cp 15:19 XRAY Chest (1 view) In Process Unspecified. EDMS 15:45 Initial lab(s) drawn, by me, sent to lab. Inserted saline lock: 22 gauge in right em forearm, using aseptic technique. Blood collected. 16:39 CT Chest For PE Angio In Process Unspecified. EDMS 17:44 Mainor Ceja MD is Hospitalizing Provider. cp 19:30 Patient has correct armband on for positive identification. Placed in gown. Bed in low sf position. Call light in reach. Side rails up X 1. pvc monitor on. Pulse ox on. NIBP on. Door closed. Noise minimized. Visitors limited. Lights dimmed. Verbal reassurance given. Diet: Patient given a heart healthy meal tray. Tolerated well. 19:42 No provider procedures requiring assistance completed. Patient admitted, IV remains in sf place. 19:45 Urine collected: clean catch specimen, clear. sf 20:30 Primary Nurse role handed off by Juan Alberto Navarro, RN mw2 Administered Medications: 15:58 Drug: Cameron (HYDROcodone-acetaminophen) (7.5 mg-325 mg) 1 tabs Route: PO; em 16:27 Follow up: Response: No adverse reaction; Marked relief of symptoms; Pain is decreased em 16:27 Drug: SOLU-Medrol (methylPrednisoLONE) 80 mg Route: IVP; Site: right forearm; em 17:30 Follow up: Response: No adverse reaction em Output: 19:45 Urine: 750ml (Voided); Total: 750ml. sf Outcome: 17:46 Decision to Hospitalize by Provider. cp 19:57 Condition: stable sf 19:57 Instructed on the need for admit. 20:08 Admitted to Tele accompanied by [facility], via stretcher, room 209, with oxygen, Report sf called to CARLOS Dominguez 20:43 Patient left the ED. sf Signatures: Dispatcher [employer] JOSE Uriel Maria A stewart Juan Alberto Navarro RN RN em Lary Horne RN RN ss Zaheer Mendez PA PA cp Gume Fairchild mw2 Karl Brandon RN RN sf Corrections: (The following items were deleted from the chart) 13:37 13:16 Chief complaint: Patient states: Had labs drawn this morning. Was told that her ss bicarb level was 42 and to come to the hospital because she could not get ahold of her primary care doctor. HX of COPD. Pt reports she is supposed to sleep with a BIPAP at night, but doesn't like she should. ss
--- NOTE | 2020-12-27 17:46 | EDPHYS ---
Physician Documentation [facility] Name: Mila Whiting Age: 65 yrs Sex: Female : 1955 Arrival Date: 12/27/2020 Time: 12:54 Bed 17 Private MD: Mj Mcintyre ED Physician Damian Batista HPI: 12/27 14:23 This 65 yrs old Black Female presents to ER via Wheelchair with complaints of Abnormal cp Lab Results. 14:23 Patient reports she was contacted by primary physician and told to go to ED for cp evaluation of elevated CO2. Patient reports being on 4 liters oxygen all the time and history of sleep apnea. Patient reports she has not been using CPAP machine. Patient c/o mind being "foggy". Historical: - Allergies: 13:20 Stadol; ss 13:20 liquid magnesium; ss - PMHx: 13:20 acid reflux; Anxiety; COPD; Hypertension; Home O2 4 Lpm; ss - Immunization history:: Adult Immunizations not up to date. - Social history:: Smoking status: Patient/guardian denies using tobacco, but has a distant history of tobacco abuse. ROS: 14:25 Constitutional: Negative for body aches, chills, fever, poor PO intake. cp 14:25 Eyes: Negative for injury, pain, redness, and discharge. cp 14:25 ENT: Negative for ear pain, sore throat, difficulty swallowing, difficulty handling secretions. 14:25 Cardiovascular: Negative for chest pain, edema, palpitations. 14:25 Respiratory: Positive for cough, Negative for shortness of breath, wheezing. 14:25 Abdomen/GI: Negative for abdominal pain, nausea, vomiting, and diarrhea, constipation, black/tarry stool. 14:25 Skin: Negative for cellulitis, rash. 14:25 Neuro: Negative for altered mental status, headache, syncope, weakness. 14:25 All other systems are negative. Exam: 14:30 Constitutional: The patient appears in no acute distress, alert, awake, cp non-diaphoretic, non-toxic, well developed, well nourished. 14:30 Head/Face: Normocephalic, atraumatic. cp 14:30 Eyes: Periorbital structures: appear normal, Conjunctiva: normal, no exudate, no injection, Sclera: no appreciated abnormality, Lids and lashes: appear normal, bilaterally. 14:30 ENT: External ear(s): are unremarkable, Nose: is normal, Mouth: Lips: moist, Oral mucosa: moist, Posterior pharynx: Airway: no evidence of obstruction, patent. 14:30 Neck: ROM/movement: is normal, is supple, without pain, no range of motions limitations. 14:30 Chest/axilla: Inspection: normal, Palpation: is normal, no crepitus, no tenderness. 14:30 Cardiovascular: Rate: tachycardic, Rhythm: regular, Edema: is not appreciated, JVD: is not appreciated. 14:30 Respiratory: the patient does not display signs of respiratory distress, Respirations: normal, no use of accessory muscles, no retractions, labored breathing, is not present, Breath sounds: decreased breath sounds, that are moderate, throughout, stridor, is not appreciated, wheezing: is not appreciated. 14:30 Abdomen/GI: Inspection: abdomen appears normal, Palpation: abdomen is soft and non-tender, in all quadrants. 14:30 Skin: no rash present. 14:30 Neuro: Orientation: to person, place \\T\\ time. Mentation: able to follow commands, slow to respond, Cerebellar function: is grossly normal, Motor: moves all fours, strength is normal, Sensation: no obvious gross deficits. 15:50 ECG was reviewed by the Attending Physician. cp Vital Signs: 13:16 BP 126 / 80; Pulse 105; Resp 17; Temp 98.3(TE); Pulse Ox 100% on 4 lpm NC; Weight 61.23 ss kg; Height 5 ft. 0 in. (152.40 cm); Pain 0/10; 16:00 BP 125 / 70; Pulse 82; Resp 16; Pulse Ox 100% on 2 lpm NC; Pain 8/10; em 17:00 BP 127 / 81; Pulse 102; Resp 18; Pulse Ox 100% on R/A; em 19:40 BP 143 / 82; Pulse 105; Resp 18; Pulse Ox 98% on 2 lpm NC; sf 13:16 Body Mass Index 26.36 (61.23 kg, 152.40 cm) ss 13:16 Home O2 ss MDM: 14:13 Patient medically screened. cp 17:00 Physician consultation: Mainor Ceja MD was called at 17:01, regarding admission, cp left message on voicemail. 17:00 Data reviewed: vital signs, nurses notes, lab test result(s), EKG, radiologic studies, cp CT scan, plain films. 17:00 Test interpretation: by ED physician or midlevel provider: ECG, plain radiologic cp studies. Counseling: I had a detailed discussion with the patient and/or guardian regarding: the historical points, exam findings, and any diagnostic results supporting the discharge/admit diagnosis, lab results, radiology results, the need for further work-up and treatment in the hospital. 17:20 Physician consultation: Mainor Ceja MD was called at 17:20, was contacted at 17:20, regarding admission, to the telemetry unit. patient's condition. 12/27 14:25 Order name: ABG; Complete Time: 16:01 12/27 14:25 Order name: Basic Metabolic Panel 12/27 14:25 Order name: CBC with Diff 12/27 14:25 Order name: LFT's 12/27 14:25 Order name: Magnesium 12/27 14:25 Order name: NT PRO-BNP 12/27 14:25 Order name: PT-INR 12/27 14:25 Order name: Troponin (emerg Dept Use Only) 12/27 14:25 Order name: COVID-19 : Document "Date of Symptom Onset" if Symptomatic. 12/27 14:25 Order name: Influenza Screen (a \\T\\ B) 12/27 14:25 Order name: Urine Microscopic Only 12/27 14:26 Order name: Basic Metabolic Panel; Complete Time: 16:54 EDMS 12/27 16:54 Interpretation: Normal except: K 3.3; CO2 41; BUN 2; CRE 0.36; CA 8.2. 12/27 14:26 Order name: CBC with Automated Diff; Complete Time: 16:54 EDMS 12/27 16:55 Interpretation: Normal except: RBC 3.65; HGB 10.0; HCT 32.0; MCHC 31.4; MN% 12.7; cp EOSINOPHIL % 6.1. 12/27 14:26 Order name: Liver (Hepatic) Function; Complete Time: 16:54 EDMS 12/27 16:55 Interpretation: Normal except: AST 8; ALB 3.1; GLOB 3.6; A/G 0.9. 12/27 14:25 Order name: XRAY Chest (1 view); Complete Time: 16:01 12/27 16:56 Interpretation: Report reviewed. 12/27 14:25 Order name: EKG; Complete Time: 14:27 12/27 14:25 Order name: Cardiac monitoring; Complete Time: 16:00 12/27 14:25 Order name: EKG - Nurse/Tech; Complete Time: 16:00 12/27 14:26 Order name: Magnesium; Complete Time: 16:54 [facility] 12/27 14:26 Order name: NT PRO-BNP; Complete Time: 16:54 [facility] 12/27 14:26 Order name: Protime (+INR); Complete Time: 16:54 [facility] 12/27 14:26 Order name: Troponin (Emerg Dept Use Only); Complete Time: 16:54 [facility] 12/27 16:02 Order name: CT Chest For PE Angio; Complete Time: 16:58 12/27 16:03 Order name: COVID-19/FLU A+B; Complete Time: 16:54 [facility] 12/27 17:29 Order name: Heart Healthy [facility] 12/27 18:10 Order name: Urine Dipstick-Ancillary [facility] 12/27 19:51 Order name: Urine Dipstick-Ancillary [facility] 12/27 14:25 Order name: IV Saline Lock; Complete Time: 16:00 12/27 14:25 Order name: Labs collected and sent; Complete Time: 15:59 12/27 14:25 Order name: O2 Per Protocol; Complete Time: 15:59 12/27 14:25 Order name: O2 Sat Monitoring; Complete Time: 15:59 12/27 14:25 Order name: Urine Dipstick-Ancillary (obtain specimen); Complete Time: 19:56 cp EC:50 Rate is 82 beats/min. Rhythm is regular. NM interval is normal. QRS interval is normal. cp QT interval is normal. T waves are Inverted in lead aVR. Interpreted by me. Reviewed by me. Administered Medications: 15:58 Drug: Hayes (HYDROcodone-acetaminophen) (7.5 mg-325 mg) 1 tabs Route: PO; em 16:27 Follow up: Response: No adverse reaction; Marked relief of symptoms; Pain is decreased em 16:27 Drug: SOLU-Medrol (methylPrednisoLONE) 80 mg Route: IVP; Site: right forearm; em 17:30 Follow up: Response: No adverse reaction em Disposition: 12/28 08:01 Co-signature as Attending Physician, Damian Batista MD I agree with the assessment and kdr plan of care. Disposition: 12/27/20 17:46 Hospitalization ordered by Mainor Ceja for Inpatient Admission. Preliminary diagnosis is Chronic obstructive pulmonary disease, unspecified. - Bed requested for Telemetry/MedSurg (Inpatient). - Status is Inpatient Admission. sf - Condition is Stable. - Problem is new. - Symptoms have improved. Signatures: Dispatcher [employer] EDMO Damian Batista MD MD [facility] Juan Alberto Navarro RN RN Lary Horne RN RN Zaheer Mendez PA PA cp Lashell Arriola RN RN Karl Brandon RN RN sf Corrections: (The following items were deleted from the chart) 12/27 15:23 14:26 CORONAVIRUS ordered. EDMS EDMS 16:54 16:54 Normal except: K 3.3; CO2 41; BUN 2; CRE 0.36. cp cp 19:31 17:46 Hospitalization Ordered by Mainor Ceja MD for Inpatient Admission. Preliminary cg diagnosis is Chronic obstructive pulmonary disease, unspecified. Bed requested for Telemetry/MedSurg (Inpatient). Status is Inpatient Admission. Condition is Stable. Problem is new. Symptoms have improved. cp 20:43 19:31 12/27/2020 17:46 Hospitalization Ordered by Mainor Ceja MD for Inpatient sf Admission. Preliminary diagnosis is Chronic obstructive pulmonary disease, unspecified. Bed requested for Telemetry/MedSurg (Inpatient). Status is Inpatient Admission. Condition is Stable. Problem is new. Symptoms have improved. cg
[2020-12-27] MEDS ORDERED: Levofloxacin500mg IV 500 MG/100 ML BAG IV SCH (18:00)
[2020-12-27 18:09] LABS: Urine Blood Trace-intact (Negative); Urine Glucose Negative (Negative); Urine Protein Negative (Negative)
[2020-12-27 18:46] LABS: Urine Bacteria <20 /HPF (<20); Urine RBC <5 /HPF (NONE SEEN)
[2020-12-27 19:50] LABS: Urine Blood Negative (Negative); Urine Glucose Negative (Negative); Urine Protein Negative (Negative); Urine Specific Gravity 1.015 (1.005-1.030)
[2020-12-27] MEDS ORDERED: ARFORMOTEROL TARTRATE 15 MCG/2 ML VIAL.NEB ONE (19:50)
[2020-12-27] MEDS ORDERED: IPRATROPIUM BROM 0.5MG/2.5ML ONE (19:50)
[2020-12-27] MEDS ORDERED: ALBUTEROL 2.5 MG/3 ML NEB SOL ONE (19:51)
[2020-12-27] MEDS: ENOXAPARIN 40 MG/0.4 ML SQ SCH (21:26)
[2020-12-27] MEDS: ALPRAZOLAM 0.5 MG TABLET PO PRN (21:43)
[2020-12-27] MEDS: ALBUTEROL 2.5 MG/3 ML NEB SOL NEB PRN (21:50)
[2020-12-27] MEDS: BUDESONIDE 0.5 MG/2 ML NEB NEB SCH (21:50)
[2020-12-27] MEDS: IPRATROPIUM BROM 0.5MG/2.5ML NEB SCH (21:50)
[2020-12-27] MEDS: TRAMADOL HCL 50 MG TAB PO PRN (22:35)
[2020-12-27 22:50] VITALS: BMI 25.9
[2020-12-28] MEDS: METHYLPREDNISOLONE 40 MG INJ IV SCH ×2 (00:11→08:39)
[2020-12-28] MEDS: IPRATROPIUM BROM 0.5MG/2.5ML NEB SCH ×4 (03:30→19:40)
[2020-12-28] MEDS: ALBUTEROL 2.5 MG/3 ML NEB SOL NEB PRN (03:30)
[2020-12-28 06:08] LABS: BUN Blood Urea Nitrogen 8 mg/dL (7-18); Bicarbonate 40 mmol/L (21-32); Glucose Level 164 mg/dL (74-106); Potassium 3.8 mmol/L (3.5-5.1); Sodium Level 140 mmol/L (136-145)
[2020-12-28] MEDS: TRAMADOL HCL 50 MG TAB PO PRN ×3 (06:11→20:58)
[2020-12-28] MEDS: AMLODIPINE 5 MG TAB PO SCH (06:11)
[2020-12-28 06:13] LABS: Arterial Blood Carboxyhemoglob 0.9 % (0-1.5); Blood Gas Oxyhemoglobin 96.4 % (94-97); Blood O2 Saturation 98.6 % (92-98.5)
[2020-12-28] MEDS: ENOXAPARIN 40 MG/0.4 ML SQ SCH (08:39)
[2020-12-28] MEDS: PANTOPRAZOLE 40MG TABLET PO SCH (08:39)
[2020-12-28] MEDS ORDERED: HOME MED 1 EA UNK (Pantoprazole Sodium [Protonix] 20 MG Tablet.Dr) PO SCH (09:00)
[2020-12-28] MEDS: BUDESONIDE 0.5 MG/2 ML NEB NEB SCH (10:14)
[2020-12-28] MEDS: ALPRAZOLAM 0.5 MG TABLET PO PRN ×2 (11:39→20:57)
--- NOTE | 2020-12-28 12:15 | P.CNS ---
Date of Consult: 12/28/20 Reason for Consult: COPD exacerbation Chief Complaint: COPD exacerbation. History of Present Illness: Patient is 65 years of age well known to me as a history of severe COPD on oxygen therapy came to my office last week complaining of cough congestion os give her a cough syrup which I refused she takes a whole bunch of pain medications although she states she feels it is not does not use it in give a some promethazine she ended up in the hospital patient has chronic hypoxemia hypercapnia and is no evidence of sepsis Allergies butorphanol tartrate [From Stadol] Allergy (Severe, Verified 12/27/20 21:04) seizures magnesium sulfate Allergy (Severe, Verified 12/27/20 21:04) Anaphylaxis Home Medications: ALPRAZolam [Xanax*] 1 mg PO TIDP PRN 08/12/12 Amlodipine Besylate [Norvasc] 5 mg PO DAILY 08/12/12 Pantoprazole Sodium [Protonix] 40 mg PO DAILY 08/12/12 Albuterol Sulfate [Albuterol Sulfate 0.083% Neb Soln] 2.5 mg IH Q4H PRN #120 units 12/21/15 Buprenorphine [Butrans] 1 each TD EVERY 7TH DAY 07/02/17 Fluticasone Propionate [Flonase Allergy Relief] 9.9 ml NS DAILY 07/02/17 predniSONE [Prednisone*] 10 mg PO DAILY 07/02/17 Ipratropium/Albuterol Sulfate [Iprat-Albut 0.5-3(2.5) mg/3 ml] 3 ml IH QID 10/08/17 Hydrocodone/Acetaminophen [Hydrocodone-Acetamin 7.5-325] 1 tab PO TID 12/27/20 Lactulose 15 ml PO DAILY PRN 12/27/20 Promethazine HCl 1 tab PO Q8H 12/27/20 Rifaximin [Xifaxan] 1 tab PO TID 12/27/20 - Past Medical/Surgical History Diabetic: No -: Hypertension -: Hepatitis C-treated -: COPD -: Anxiety -: Hernia -: home 02 -: Stenosis -: HX OF UTI -: Cholecystectomy -: Right ankle surgery -: Hernia Repair - Family History Mother Medical History: Hypertension, Diabetes Father Medical History: Hypertension, Diabetes - Social History Smoking Status: Former smoker Alcohol use: Yes CD- Drugs: No Caffeine use: Yes Place of Residence: Home Review of Systems General: Weakness Respiratory: Cough, Shortness of Breath Physical Examination Temp Pulse Resp BP Pulse Ox 97.8 F 83 18 110/55 L 100 12/28/20 08:00 12/28/20 08:00 12/28/20 08:00 12/28/20 08:00 12/28/20 08:00 General: Alert, Oriented x3 Respiratory: Clear to auscultation bilaterally, Diminished Cardiovascular: No edema, Normal S1 S2 Gastrointestinal: Normal bowel sounds, Soft and benign Laboratory Data (last 24 hrs) 12/27/20 15:40: PT 14.3 H, INR 1.24 12/27/20 15:40: WBC 6.00 D, Hgb 10.0 L, Hct 32.0 L, Plt Count 215 12/27/20 15:40: Sodium 143, Potassium 3.3 L, BUN 2 L, Creatinine 0.36 L, Glucose 104, Magnesium 1.8, Total Bilirubin 0.2, AST 8 L, ALT 15, Alkaline Phosphatase 61 - Problems (1) COPD exacerbation Onset Date: 12/11/15 Current Visit: No Status: Acute Plan: Patient is 65 years of age admitted with COPD exacerbation complaining of productive cough agree with p.o. levofloxacin check sputum culture price changer to p.o. prednisone add Diamox room-air blood gases patient is asking for a lot of oxygen at home room-air sat at the time of my evaluation was around 92% and plan to ambulate her with our oxygen labs patient has chronic hypoxemia hypercarbia has BiPAP at home change to p.o. prednisone Dc nebulize Pulmicort/discharged home on levofloxacin for 7 days prednisone 10 b.i.d. for 7 days Diamox 250 mg daily she has BiPAP at home
[2020-12-28 12:54] LABS: Arterial Blood Carboxyhemoglob 1.1 % (0-1.5); Blood Gas Oxyhemoglobin 85.3 % (94-97)
[2020-12-28] MEDS: acetaZOLAMIDE 250 MG TAB PO SCH (13:14)
[2020-12-28] MEDS ORDERED: LACTULOSE 20 GM/30 ML UCUP PO PRN (14:58)
--- NOTE | 2020-12-28 16:53 | P.PN ---
Subjective Date of Service: 12/28/20 Chief Complaint: COPD exacerbation. Subjective: Other (feels slightly improved with her breathing, but still feels "sick", coughing up more mucous, feels fatigued, "foggy brain". has not gotten out of bed yet) Review of Systems 10-point ROS is otherwise unremarkable Physical Examination - Vital Signs Temperature: 97.5 F Blood Pressure: 135/70 Pulse: 100 Respirations: 18 Pulse Ox (%): 100 - Studies Laboratory Data (last 24 hrs) 12/28/20 05:28: Sodium 140, Potassium 3.8, BUN 8, Creatinine 0.47 L, Glucose 164 H Assessment & Plan Physician Review Additional Text: Physical Exam General: Alert, Oriented x3 HEENT: Atraumatic, Normocephalic, normal conjunctiva Pulm: mild expiratory wheeze, slightly diminished throughout Cardiovascular: Regular rate/rhythm, Normal S1 S2 Gastrointestinal: Soft and benign, nontender Musculoskeletal: No swelling Problem List acute hypoxemic/hypercapnic respiratory failure secondary to acute on chronic COPD exacerbation HTN Anxiety -continue steroids, nebulizers, antibiotics -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 Smith consulted -recommended addition of diamox -pCO2:88, repeat ABG this morning -obtain and continue home medications as appropriate Dispo: anticipate dc home in 24hrs prn alprazolam. Time Spent Managing Pts Care (In Minutes): 35
[2020-12-28] MEDS ORDERED: BENZONATATE 100 MG CAP PO PRN (19:31)
[2020-12-28] MEDS: predniSONE 20 MG TAB PO SCH (20:57)
[2020-12-29] MEDS: IPRATROPIUM BROM 0.5MG/2.5ML NEB SCH ×2 (02:05→09:00)
[2020-12-29] MEDS: AMLODIPINE 5 MG TAB PO SCH (05:10)
[2020-12-29] MEDS: TRAMADOL HCL 50 MG TAB PO PRN (05:10)
[2020-12-29 06:39] LABS: BUN Blood Urea Nitrogen 8 mg/dL (7-18); Bicarbonate 33 mmol/L (21-32); Glucose Level 139 mg/dL (74-106); Magnesium 1.9 mg/dL (1.8-2.4); Potassium 4.2 mmol/L (3.5-5.1); Sodium Level 139 mmol/L (136-145)
--- NOTE | 2020-12-29 07:27 | EKG ---
Test Date: 2020-12-27 Test Time: 15:44:01 Claims Director: LUCIO MEASUREMENT RESULTS: Intervals: Rate: 82 NV: 192 QRSD: 86 QT: 364 QTc: 425 Locke: P: 80 NV: 192 QRS: 68 T: 70 INTERPRETIVE STATEMENTS: Normal sinus rhythm Possible Left atrial enlargement Left ventricular hypertrophy Abnormal ECG Compared to ECG 08/13/2020 11:07:11 No significant changes Electronically Signed On 12-29-20 07:22:37 CDT by Rusty Castillo
[2020-12-29] MEDS ORDERED: levoFLOXacin 500 MG TAB PO SCH (09:00)
[2020-12-29 10:05] VITALS: O2SAT 97
[2020-12-29] MEDS: PANTOPRAZOLE 40MG TABLET PO SCH (10:36)
[2020-12-29] MEDS: acetaZOLAMIDE 250 MG TAB PO SCH (10:36)
[2020-12-29] MEDS: ENOXAPARIN 40 MG/0.4 ML SQ SCH (10:36)
[2020-12-29] MEDS: predniSONE 20 MG TAB PO SCH (10:36)
[2020-12-29 10:48] VITALS: BP 134/68; TEMP 99.9
--- NOTE | 2020-12-29 21:00 | P.DS ---
Admission Date: 12/28/20 Discharge Date: 12/29/20 Disposition: ROUTINE DISCHARGE Discharge Condition: FAIR Reason for Admission: COPD exacerbation. Consultations: Pulm - Dr. Smith Procedures: CXR (12/27): Chronic interstitial lung disease similar to July 2020. Severity of chronic disease could potentially mask early edema or infiltrate. CTA Chest (12/27): No pulmonary emboli identified. COPD not significantly different from older studies. Problem List acute hypoxemic/hypercapnic respiratory failure secondary to acute on chronic COPD exacerbation HTN Anxiety Brief History of Present Illness: 65 y o female pt with hx of COPD, hypertension, anxiety who came to the ED with c/o cough, sob, feeling of chest tightness and lethargy. She started having these symptoms yesterday but this got worse today. she does have cough and congestion. She denied chest pain, n/v, falls, fever, chills. CXR done in the ED was not concerning and her ABG was poor with pCO2 of 88 and pH of 7.31. she was started on breathing treatment and was asked to be admitted for observation due to her COPD exacerbation. Hospital Course: Treated for her COPD exacerbation with steroids, nebs, and levaquin. She had improvement in her symptoms. She was also started on Diamox to assiste with her elevated CO2. She was discharged to resume home medications, and take prednisone 10mg BID x 7 days, levaquin x 7 days, and follow up with Dr. Smith in the next ~1 week. Vital Signs/Physical Exam: Physical Exam General: Alert, Oriented x3 HEENT: Atraumatic, Normocephalic, normal conjunctiva Pulm: clear to auscultation bilaterally, slightly diminished throughout Cardiovascular: Regular rate/rhythm, Normal S1 S2 Gastrointestinal: Soft and benign, nontender Musculoskeletal: No swelling Temp Pulse Resp BP Pulse Ox 99.9 F 89 20 134/68 100 12/29/20 08:00 12/29/20 08:00 12/29/20 08:00 12/29/20 08:00 12/29/20 08:00 Laboratory Data at Discharge: WBC 6.00 K/uL (4.3-10.9) D 12/27/20 15:40 Hgb 10.0 g/dL (12.0-15.0) L 12/27/20 15:40 Hct 32.0 % (36.0-45.0) L 12/27/20 15:40 Plt Count 215 K/uL (152-406) 12/27/20 15:40 PT 14.3 SECONDS (9.5-12.5) H 12/27/20 15:40 INR 1.24 12/27/20 15:40 Sodium 139 mmol/L (136-145) 12/29/20 05:45 Potassium 4.2 mmol/L (3.5-5.1) 12/29/20 05:45 BUN 8 mg/dL (7-18) 12/29/20 05:45 Creatinine 0.41 mg/dL (0.55-1.3) L 12/29/20 05:45 Glucose 139 mg/dL (74-106) H 12/29/20 05:45 Magnesium 1.9 mg/dL (1.8-2.4) 12/29/20 05:45 Total Bilirubin 0.2 mg/dL (0.2-1.0) 12/27/20 15:40 AST 8 U/L (15-37) L 12/27/20 15:40 ALT 15 U/L (12-78) 12/27/20 15:40 Alkaline Phosphatase 61 U/L (45-117) 12/27/20 15:40 Home Medications: ALPRAZolam [Xanax*] 1 mg PO TIDP PRN 08/12/12 Amlodipine Besylate [Norvasc] 5 mg PO DAILY 08/12/12 Pantoprazole Sodium [Protonix] 40 mg PO DAILY 08/12/12 Albuterol Sulfate [Albuterol Sulfate 0.083% Neb Soln] 2.5 mg IH Q4H PRN #120 units 12/21/15 Buprenorphine [Butrans] 1 each TD EVERY 7TH DAY 07/02/17 Fluticasone Propionate [Flonase Allergy Relief] 9.9 ml NS DAILY 07/02/17 predniSONE [Prednisone*] 10 mg PO DAILY 07/02/17 Ipratropium/Albuterol Sulfate [Iprat-Albut 0.5-3(2.5) mg/3 ml] 3 ml IH QID 10/08/17 Hydrocodone/Acetaminophen [Hydrocodone-Acetamin 7.5-325] 1 tab PO TID 12/27/20 Lactulose 15 ml PO DAILY PRN 12/27/20 Promethazine HCl 1 tab PO Q8H 12/27/20 Rifaximin [Xifaxan] 1 tab PO TID 12/27/20 acetaZOLAMIDE [Diamox*] 250 mg PO DAILY 30 Days #30 tab 12/29/20 levoFLOXacin [Levaquin*] 500 mg PO DAILY 7 Days #7 tab 12/29/20 predniSONE [Deltasone*] 10 mg PO BID 7 Days #14 tab 12/29/20 New Medications: predniSONE [Deltasone*] 10 mg PO BID 7 Days #14 tab acetaZOLAMIDE [Diamox*] 250 mg PO DAILY 30 Days #30 tab levoFLOXacin [Levaquin*] 500 mg PO DAILY 7 Days #7 tab Diet: AHA Activity: Ad zena Followup: Finesse Smith MD [ACTIVE - CAN ADMIT] - Mj Mcintyre MD [Primary Care Provider] - Time spent managing pt's care (in minutes): 35
== END 2020-12-29 11:47 | disposition home or self-care (01) | DRG 190 ==
LOC: ER 12:50 → ERHOLD 17:26 → 2ND 20:13 → OBSVTOIN 12-28 15:13
PROVIDERS: ADMIT Internal Medicine Nephrology; ATTEND Hospitalist
PROC: 5A09457 Assistance with Respiratory Ventilation, 24-96 Consecutive Hours, Continuous Positive Airway Pressure (ICD-10-PCS; principal; 2020-12-28)
DX: J44.1 Chronic obstructive pulmonary disease with (acute) exacerbation (principal); J96.01 Acute respiratory failure with hypoxia; J96.02 Acute respiratory failure with hypercapnia; F41.9 Anxiety disorder, unspecified; I10 Essential (primary) hypertension; K21.9 Gastro-esophageal reflux disease without esophagitis; Z88.5 Allergy status to narcotic agent; Z88.8 Allergy status to other drugs, medicaments and biological substances; Z90.49 Acquired absence of other specified parts of digestive tract; Z79.01 Long term (current) use of anticoagulants; Z99.81 Dependence on supplemental oxygen; Z87.891 Personal history of nicotine dependence; Z79.52 Long term (current) use of systemic steroids; Z79.899 Other long term (current) drug therapy; Z20.822 Contact with and (suspected) exposure to COVID-19
CPT/HCPCS: 0240U; 36415; 71045; 71275; 80048; 80053; 80076; 81003; 81015; 82150; 82248; 82805; 83690; 83735; 83880; 84484; 85025; 85610; 87522; 93005; 94640; 94660; 94760; 96374; 99285; G0378; J1650; J2920; J2930; J7512; J7605; Q9967

== ENCOUNTER 2021-03-19 07:28 | Day surgery (SDC) | payer OTHER ==
[2021-03-19] MEDS ORDERED: Ringers Lactate 1,000 ML IV ONE (08:14)
[2021-03-19] MEDS ORDERED: propofoL 200 MG/20 ML VIAL IV ONE (08:14)
[2021-03-19] MEDS ORDERED: LIDOCAINE 1% MPF 30 ML VIAL ONE (08:14)
[2021-03-19 08:18] VITALS: O2SAT 100
[2021-03-19 09:19] VITALS: TEMP 97.5
[2021-03-19 09:20] VITALS: BP 133/82
[2021-03-19] MEDS ORDERED: NS 0.9% VIAL 0 ML ONE (09:20)
[2021-03-19] MEDS ORDERED: FENTANYL CITR 250 MCG/5 ML ONE (09:20)
[2021-03-19] MEDS ORDERED: dexAMETHasone 10 MG/ML VIAL ONE (09:20)
[2021-03-19] MEDS ORDERED: ROCURONIUM 50 MG/5 ML VIAL IV ONE (09:20)
[2021-03-19] MEDS ORDERED: MIDAZOLAM HCL 2 MG/2 ML INJ ONE (09:20)
[2021-03-19] MEDS ORDERED: KETOROLAC 30 MG/ML INJ ONE (09:20)
[2021-03-19] MEDS ORDERED: ONDANSETRON 4 MG/2 ML VIAL ONE (09:21)
[2021-03-19] MEDS ORDERED: VECURONIUM 10 MG/VIAL IV ONE (09:21)
--- NOTE | 2021-03-19 12:53 | OP ---
Surgeon: Maykel Rader MD Procedure Performed: Esophagogastroduodenoscopy. Indication For Procedure: Epigastric pain, cirrhosis, nausea. Plan For Anesthesia: Monitored anesthesia care. Complexity: High due to the patient's comorbidities. Technique: After obtaining informed consent from the patient explaining risks and complications, whi ch include, but are not limited to bleeding, infection, perforation, and anesthesia complications, th e patient was placed in the left lateral position and sedation was given. From then on, the scope wa s advanced through the mouth and carefully guided up till the second portion of the duodenum. Then, while carefully examining the mucosa, scope was withdrawn. After completion of the examination, scop e and equipment were removed, and procedure terminated in a safe manner. Findings: Esophagus: No gross lesion in the upper and mid esophagus. In the distal esophagus, the Z-line appeared to be mildly irregular. A small hiatal hernia was also seen. Stomach: Mild patchy erythema was seen in the body and striped seen in the antrum. Biopsies taken f rom the antrum and body. Duodenum: The bulb and second portion appeared normal, but due to absence of other findings, biopsie s were taken. Complications: None. Tolerance To Anesthesia: Excellent. Postoperative Diagnoses: Gastritis, small hiatal hernia. Plan: 1.Await pathology results. 2.Follow up in the GI clinic in 2 weeks. 3.Oral PPI. US/MODL Voice ID: [id number] Report ID: [id number]
== END 2021-03-19 09:14 | disposition home health service (06) ==
LOC: OR 07:28
PROVIDERS: ATTEND Internal Medicine Gastroenterology
PROC: 0DB68ZX Excision of Stomach, Via Natural or Artificial Opening Endoscopic, Diagnostic (ICD-10-PCS; 2021-03-19)
PROC: 0DB98ZX Excision of Duodenum, Via Natural or Artificial Opening Endoscopic, Diagnostic (ICD-10-PCS; principal; 2021-03-19 08:00)
DX: K29.50 Unspecified chronic gastritis without bleeding (principal); R11.0 Nausea; K74.60 Unspecified cirrhosis of liver; R63.4 Abnormal weight loss; K59.00 Constipation, unspecified; J44.9 Chronic obstructive pulmonary disease, unspecified; F41.9 Anxiety disorder, unspecified; I10 Essential (primary) hypertension
CPT/HCPCS: 88305; 43239; J2704; J7120; J1100; J2250; J2405; J3010

== ENCOUNTER 2021-04-24 21:53 | Observation (INO) | payer OTHER ==
--- OUTSIDE RECORDS SUMMARY | 2021-04-24 21:58 | XMS REPORT | Continuity of Care Document ---
:1955 Author Organization [facility] t Address [address] [place] [address] Care Team Providers Name Role Phone Victor Hugo Mcintyre MD Primary Care Physician Lab, - Db Attending Clinician Unavailable Ros HYLTON, Gene Attending Clinician Victor Hugo Mcintyre MD Attending Clinician LINDA MCKEON Attending Clinician Unavailable LINDA MCKEON Admitting Clinician Unavailable Payers Payer Name Policy Type Policy Effective Date Expiration Date Sour ce Number [facility] [id number] 2021 Univers ity of COMM PLAN - 00:00:00 [place] [facility] MANAGED Branch [place]UHC [place] STAR [id number]/2020-PresentMedic aid Problems Condition Condition Condition Status Onset Resolution Last Treating Co mments Source Name Details Category Date Date Treatment Clinician Date COPD COPD Disease Active Univers exacerbati exacerbati 12-29 it y of on on 00:00: [place] 00 [facility] Symptomati Symptomati Disease Active U nivers c c 7-11 [place] of men[place] or female 00 Medi josé miguel climacteri climacteri Br anch c states c states Essential Essential Disease Active Uni vers hypertensi hypertensi 6-05 [place] y of on, benign [place] Chronic Chronic Disease Active Univers airway airway 05 [place] of obstructio [place]io [place], [place] n, not 00 Medical elsewhere elsewhere Bran ch classified classified Spinal Spinal Disease Active Univers stenosis, stenosis, 05 ity of unspecifie unspecif[place] d region 00 Medica l other than other than Br anch cervical cervical Allergies, Adverse Reactions, Alerts Allergy Allergy Status Severity Reaction(s) Onset Inactive Treating Comm ents Source Name Type Date Date Clinician Magnesiu Propensi Active Anaphylaxis Liquid [facility] m ty to 4-29 [facility] - adverse 00:00: Medical reaction 00 [facility] Butorpha Propensi Active Anaphylaxis C [facility] nol ty to 4-29 [facility] - Tartrate adverse 00:00: Medical reaction 00 [facility] Magnesiu Propensi Active Anaphylaxis Liquid U nivers m ty to 3-05 form ity of adverse 00:00: [place] reaction 00 [facility] Butorpha Propensi Active Anaphylaxis 2005-0 Seizures Univers nol ty to 6-05 per pt ity of Tartrate adverse 00:00: [place] reaction 00 [facility] Stadol Adverse Active Info Not [facility] Reaction [facility] Magnesiu Adverse Active Info Not [facility] Reaction Available [facility] Social History Social Habit Start Date Stop Date Quantity Comments Source History of tobacco Cigarette Smoker University of use [facility] Exposure to Not sure University of SARS-CoV-2 (event) [facility] Sex Assigned At [facility] kes - [facility] History SDOH [facility] - Alcohol Std Drinks [facility] History SDOH [facility] - Alcohol Binge Medical [address] Cigarettes smoked 2021-04-23 2021-04-23 Univers ity of current (pack per 00:00:00 00:00:00 [facility] ) - Reported Branch Cigarette 2021-04-23 2021-04-23 University of pack-years 00:00:00 00:00:00 [facility] Tobacco use and 2018-12-28 2018-12-[address] [facility] kes - exposure 00:00:00 00:00:00 [facility] Alcohol intake 2018-12-28 2018-12-28 Current JESSICA Sullivan es - 00:00:00 00:00:00 non-drinker of Medical nter alcohol (finding) Tobacco Comment 2018-12-27 2018-12-27 quit 2 yrs ago [facility] - 00:00:00 00:00:00 [facility] History SDOH 2018-12-27 2018-12-27 1 JESSICA Maganakes - Alcohol Frequency 00:00:00 00:00:00 [facility] Alcohol Comment 2007-02-02 2007-02-02 social drinker Unive rsity of 00:00:00 00:00:00 [facility] Smoking Status Start Date Stop Date Source Former smoker 2018-12-28 00:00:00 2018-12-28 00:00:00 JESSICA [facility] Medications Ordered Filled Start Stop Current Ordering Indication Dosage Frequency Signature Comments Components Source Medication Medication Date Date Medication? Clinician (SIG) Name Name diazePAM Yes [id number] 5mg Take 1 Uni vers (VALIUM) 5 7-22 tablet by ity of mg tablet 00:00: mouth 3 [place] 00 (three) Medical times [place] daily. cefUROXime 2020- Yes [id number] 500mg Take 1 Univers 500 mg 6-11 tablet by ity of tablet 00:00: mouth 2 [place] 00 (two) Medical times [place] daily. predniSONE 2020- Yes 5mg Take 5 mg Un nathen 5 mg tablet 4-13 by mouth. ity of 19:13: [place] 57 [facility] baclofen 10 2020-0 Yes Univer s mg tablet 4-03 ity of 00:00: [place] 00 [facility] pantoprazol 2020-0 Yes 40mg Take 40 mg Univers e 40 mg EC 3-12 by mouth ity o f tablet 20:37: daily. [place] 07 [facility] HYDROcodone 2020- Yes 1{tbl} Take 1 Un nathen -acetaminop 3-12 tablet by ity of hen 7.5-325 20:37: mouth 3 Shawn as mg per 07 (three) Medical tablet times Branch daily. OXYGEN-AIR Yes by Univers DELIVERY 3-12 Miscellane ity o f SYSTEMS 20:37: [place]. [place] MISC 07 [place] LORazepam 1 Yes [id number] 1mg Take 1 Univers mg tablet 3-12 tablet by ity o f 00:00: mouth 3 [place] 00 (three) Medical times Branch daily as needed for Anxiety or Agitation. SPIRIVA Yes INHALE 2 Univer s RESPIMAT 2-16 PUFFS BY ity of 2.5 00:00: MOUTH [place] mcg/actuati 00 EVERY DAY Med ical on Mist Branch amLODIPine Yes [id number] 5mg Take 1 Un nathen 5 mg tablet 1-19 tablet by ity of 00:00: mouth [place] 00 daily. Medical Branch promethazin Yes 5mL Take 5 mL U nivers e-codeine 7-17 by mouth. ity o f 6.25-10 19:54: [place] mg/5 mL 38 Medical syrup Branch TIOTROPIUM Yes Inhale. [facility] [place] [facility] ers BROMIDE 7-17 ity of (SPIRIVA 19:52: [place] RESPIMAT 14 Medical INHALE) Branch MOMETASONE Yes Use in [facility] [place] [facility] ers FUROATE 7-17 each ity of (NASONEX 19:52: nostril. [place] NASAL) 14 Medical Branch buprenorphi Yes APPLY ONE U nivers ne 10 6-05 PATCH TO ity of mcg/hour 00:00: SKIN ONCE [place] patch 00 A WEEK FOR Medical 28 DAYS Branch aspirin 81 Yes 81mg QD Take [address] MG EC 4-30 by mouth [facility] - tablet 10:34: daily. [address] ALPRAZolam Yes .5mg Take 0.5 [facility] [...] nebulizer (six) solution hours as needed. predniSONE 2019- Yes 5mg QD Take 5 mg CH [...] MG tablet 10:34: daily. Medica l 04 Brant tiotropium 0 Yes 18ug Q.5D Inhale 18 [...] tablet hours as needed for Pain. buprenorphi 2018-0 Yes 1{patch Place [address] [facility] ne 4-30 } patch onto [facility]ukes - (BUTRANS) 10:34: the skin Medi josé miguel 10 mcg/hour 04 every 7 Cente r PTWK days. lactulose 0 Yes 20g Take [address] (CHRONULAC) 4-30 by mouth Luke s - 10 gram/15 10:34: daily as Med ical mL (15 mL) 04 needed. Brant solution docusate 0 Yes 200mg Take [address] sodium 4-30 mg by [facility]ukes - (COLACE) 10:34: mouth Medical 100 MG 04 daily as Center capsule needed for Constipati on. psyllium 2019 Yes .52g Take 0.[address] 0.52 gram 4-30 g by mouth Luke s - capsule 10:34: every 7 Medical 04 days. Brant pantoprazol 2019-0 Yes 20mg QD Take 20 mg [facility] [...] Lukes - SYSTEMS 10:34: ous route. Medi [facility] MIS 04 Center Butrans Butrans Yes Na [...] [facility] Yes Na Guido [address] [facility] All[facility] All[facility] Flom Flom Yes Na Guido [address] [...] [facility] Yes Na Guido [address] [facility] Protonix Protonix Yes Na Guido 1/2 tablet [facility] PredniSONE PredniSONE Yes Na Guido 1 tablet [facility] Combivent Combivent Yes Na Guido not [facility] Procedures This patient has no known procedures. Plan of Care Planned Activity Planned Date Details Comments Source Future Scheduled 2020-05-[address] [facility] - Test 00:00:00 (#1) [code = [facility] INFLUENZA VACCINE (#1)] Future Scheduled [address] [facility] - Test 00:00:00 (procedure) [code = [facility] 13690939] Future Scheduled [address] [facility] - Test 00:00:00 malignant neoplasm Medical C enter of cervix (procedure) [code = 557662334] Future Scheduled [address] [facility] - Test 00:00:00 malignant neoplasm Medical C enter of breast (procedure) [code = 448109592] Future Scheduled [address] [facility] - Test 00:00:00 malignant neoplasm Medical C enter of colon (procedure) [code = 055922281] Encounters Start End Encounter Admission Attending Care Care Encounter Source Date/Time Date/Time Type Type Clinicians Facility Department ID 2021-04-23 2021-04-23 [facility], Ang - Db [facility] [id number] Univers 13:30:12 13:45:12 Visit Ibrahima Sommer [facility] [id number] itcristela of [place] [id number] Shawn as Micah?Blea [phone] [address] Medical Office Building 2021-03-22 2021-03-22 Refill Francisco Javier [facility] [id number] 00:00:00 00:00:00 [facility] [id number] Victor Hugo [place] [id number] Professio [phone] nal 0[address] Office [address] One 2021-03-21 2021-03-21 Refill Francisco Javier [facility] [id number] 00:00:00 00:00:00 [facility] [id number] Victor Hugo [place] [id number] Professio [phone] nal 044 Office Building One 2021-02-26 2021-02-26 Office Ros [facility] [id number] 14:45:21 15:57:07 Visit Ibrahima Dacosta [id number] [place] [id number] Professio [phone] nal 092 [facility] 2020-05-21 2020-05-21 Outpatient STLMLC [facility] [id number] [facility] 2020-05-21 2020-05-21 Outpatient STLMLC [facility]ML[facility] [id number] [facility] 2018-11-08 2018-11-08 [facility] [id number] 11:45:00 11:45:00 [employer] [place] [employer] [place] [facility] Family Medicine l Medicine Outpati ent Clinics Results Test Description Test Time Test Comments Results Result [facility] e Comments FINE NEEDLE Medical Cytology Report ASPIRATION BY 1 CLINICIAN 16:25:00 Case: [id number] Authorizing Provider: Holly Mckeon Collected: 12/28/2018 0903 MD Delores Ordering Location: [facility] Endoscopy Received: 12/28/2018 1103 Services Pathologist: Salvador Begum MD Specimen: Pancreas PANCREAS CYST FNA BY CLINICIAN (CYTOSPINS AND CELL BLOCK OF ASPIRATE): - NEGATIVE FOR MALIGNANCY - The mucin stain is negative Signing Pathologist Direct Phone Line: [phone] signed by Salvador Begum MD on 12/29/2018 at 4:25 PMThe mucin stain is negative and the control slide shows positive staining as expected.[id number], 71264, 75478Cqop cysts in the pancreas, largest measuring 2.0 cmPANCREAS CYST FNA27 mls in cytorich red; 4 cytospins, 1 mucin stain, cell blockCollected: [id number]: [id number] interpretation of this case included the use [...] [facility], Department of Pathology, [address] [place] [address], [facility], [address] [place] [address], [facility], [facility] of [facility], [address] [place] [address], TISSUE EXAM Surgical Pathology Report 1 10:28:00 Case: [id number] Authorizing Provider: Holly Mckeon Collected: 12/28/2018 0924 MD Delores Ordering Location: [facility] Endoscopy Received: 12/28/2018 1253 Services Pathologist: Kurtis Luna MD Specimen: Ampulla PART A AMPULLARY BIOPSY:PARTIALLY DENUDED NON-NEOPLASTIC SMALL INTESTINAL MUCOSA WITHOUT SIGNIFICANT HISTOPATHOLOGIC ALTERATION.NEGATIVE FOR DYSPLASIA OR INVASIVE CARCINOMA. Signing Pathologist Direct Phone Line: [phone] signed by Kurtis Luna MD on 12/29/2018 at 10:28 [id number] pancreatic lesionampullaThe container is labeled "ampulla" and [...] this type of specimen.FINE NEEDLE ASPIRATE (FNA) [id number] 13:00:00 Test Item Value Reference Range Interpretation Comments CYTOLOGY RESULT POINTER See Separate Report (RAMEZ) (test code = 2629)
[2021-04-25 03:50] LABS: Urine Blood Negative (Negative); Urine Glucose Negative (Negative); Urine Protein Negative (Negative); Urine Specific Gravity 1.015 (1.005-1.030)
[2021-04-25 04:07] LABS: Protime INR 1.11
[2021-04-25 04:26] LABS: Absolute Lymphocytes (CBC) 1.5 K/uL (0.7-4.9); Basophils % 0.3 % (0-1.3); Hematocrit 35.5 % (36.0-45.0); Lymphocytes % 22.6 % (15.3-44.8); MPV 8.4 fL (7.6-11.3); RBC Red Blood Cell Count 4.13 M/uL (3.86-4.86)
[2021-04-25 04:31] LABS: Phencyclidine NEGATIVE (NEGATIVE)
[2021-04-25 04:32] LABS: Barbiturates NEGATIVE (NEGATIVE); Benzodiazepines POSITIVE (NEGATIVE); Cocaine NEGATIVE (NEGATIVE); METHAMPHETAM NEGATIVE (NEGATIVE); Methadone NEGATIVE (NEGATIVE); Opiates POSITIVE (NEGATIVE); THC Cannibis NEGATIVE (NEGATIVE)
[2021-04-25 04:35] LABS: ALT/SGPT 26 U/L (12-78); AST/SGOT 20 U/L (15-37); Albumin 4.2 g/dL (3.4-5.0); Alkaline Phosphatase 70 U/L (45-117); BUN Blood Urea Nitrogen 4 mg/dL (7-18); Bilirubin Direct < 0.1 mg/dL (0-0.2); Bilirubin Total 0.5 mg/dL (0.2-1.0); Glucose Level 82 mg/dL (74-106); Magnesium 1.8 mg/dL (1.8-2.4); NT PRO-BNP 19 pg/mL (<125); Protein, Total 8.5 g/dL (6.4-8.2); Sodium Level 138 mmol/L (136-145); Troponin (Emerg Dept Use Only) < 0.02 ng/mL (0.0-0.045)
[2021-04-25 04:36] LABS: Bicarbonate 42 mmol/L (21-32)
[2021-04-25] MEDS ORDERED: LORazepam 2 MG/ML VIAL ONE (04:45)
[2021-04-25] MEDS ORDERED: NA CHLORIDE 0.9% 1,000 ML ONE (04:45)
--- NOTE | 2021-04-25 04:55 | ER ---
Nurse's Notes [facility] Name: Mila Whiting Age: 65 yrs Sex: Female : 1955 Arrival Date: 04/24/2021 Time: 21:55 Bed 18 Private MD: Diagnosis: Seizures. Unsready gait Presentation: 04/24 23:06 Chief complaint: Patient states: Pt stated, " My right hand began to shake then began kg to shake uncontrollably then went up my arm. I knew it was shaking but I couldn't mentally stop it, then both of my legs began to shake. This has never happened before. I cant tell you how long it last, Also my shoulder joints hurt really bad.". Coronavirus screen: Client denies travel out of the [place] in the last 14 days. At this time, unable to obtain information related to travel outside the [place] At this time, the client does not indicate any symptoms associated with coronavirus-19. Ebola Screen: Patient negative for fever greater than or equal to 101.5 degrees Fahrenheit, and additional compatible Ebola Virus Disease symptoms Patient denies exposure to infectious person. Patient denies travel to an Ebola-affected area in the 21 days before illness onset. Initial Sepsis Screen: Does the patient meet any 2 criteria? No. Patient's initial sepsis screen is negative. Does the patient have a suspected source of infection? No. Patient's initial sepsis screen is negative. Risk Assessment: Do you want to hurt yourself or someone else? Patient reports no desire to harm self or others. Onset of symptoms was April 24, 2021 at 20:00. 23:06 Method Of Arrival: Wheelchair kg 23:06 Acuity: CRISTY 3 kg Triage Assessment: 04/25 01:19 General: Appears in no apparent distress. Behavior is calm, cooperative. Pain: Denies sh9 pain. Neuro: No deficits noted. Reports pt had neurologic episode and describes shaking while at [employer] but patient remembers the event . Historical: - Allergies: 04/24 23:13 liquid magnesium; kg 23:13 Stadol; kg - Home Meds: 23:13 amlodipine 5 mg tab 1 tab once daily [Active]; DuoNeb 0.5 mg-3 mg(2.5 mg base)/3 mL kg Inhl nebu [Active]; fluticasone inhalation [Active]; prednisone 10 mg Oral tab [Active]; Proventil Inhl [Active]; Protonix 40 mg Oral TbEC 1 tab once daily [Active]; diazepam 5 mg Oral tab 1 tab 3 times per day [Active]; gabapentin 100 mg oral tab twice a day [Active]; 23:18 [place] 7.5-325 mg Oral tab 1 tab every 6 hours [Active]; kg - PMHx: 04/25 01:30 Hypertension; Home O2 4 Lpm; COPD; Anxiety; acid reflux; spinal stenosis; sh9 - PSHx: 04/24 23:13 Hernia Repair; Right ankle Sx; Cholecystectomy; kg - Immunization history:: Adult Immunizations not immunized, Client reports receiving the Yohan \\T\\ Yohan single-dose vaccine. - Social history:: Smoking status: Patient denies any tobacco usage or history of. Patient uses alcohol, occasionally. Screenin/26 01:29 Abuse screen: Denies threats or abuse. Denies injuries from another. Nutritional sh9 screening: No deficits noted. Tuberculosis screening: No symptoms or risk factors identified. Fall Risk None identified. Assessment: 01:28 General: Appears in no apparent distress. Behavior is calm, cooperative. Pain: sh9 Complains of pain in buttocks Pain currently is 8 out of 10 on a pain scale. Neuro: No deficits noted. Cardiovascular: No deficits noted. Denies chest pain, lightheadedness, shortness of breath. Respiratory: No deficits noted. GI: No deficits noted. : No deficits noted. EENT: No deficits noted. Derm: No deficits noted. Musculoskeletal: No deficits noted. 09:33 Reassessment: Patient appears in no apparent distress at this time. No changes from kh1 previously documented assessment. Patient and/or family updated on plan of care and expected duration. Pain level reassessed. Patient is alert, oriented x 3, equal unlabored respirations, skin warm/dry/pink. Vital Signs: 04/24 23:06 BP 170 / 93; Pulse 94; Resp 22; Temp 98.4; Pulse Ox 100% on 2 lpm NC; Weight 63.96 kg; kg Height 5 ft. 1 in. (154.94 cm); Pain 7/10; 04/25 01:20 BP 163 / 101; Pulse 87; Resp 18; Temp 98.3; Pulse Ox 100% on 3 lpm NC; Pain 8/10; sh9 05:50 BP 133 / 76; Pulse 80; Pulse Ox 100% on 3 lpm NC; sh9 04/24 23:06 Body Mass Index 26.64 (63.96 kg, 154.94 cm) kg [place] Coma Score: 01:19 Eye Response: spontaneous(4). Verbal Response: oriented(5). Motor Response: obeys sh9 commands(6). Total: 15. ED Course: 04/24 21:55 Patient arrived in ED. bp1 23:13 Triage completed. kg 04/25 01:08 Guillermina Castaneda, RN is Primary Nurse. sh9 01:27 Babar Obregon MD is Attending Physician. pkl 01:30 Patient has correct armband on for positive identification. Bed in low position. Call sh9 light in reach. Side rails up X 1. Side rails up X2. 01:32 Arm band placed on right wrist. EKG completed in triage. Results shown to MD. sh9 01:32 Seizure precautions initiated. sh9 02:08 XRAY Chest (1 view) In Process Unspecified. EDMS 02:38 CT Head Brain wo Cont In Process Unspecified. EDMS 03:30 Urine collected: clean catch specimen, clear. bb 03:50 Initial lab(s) drawn, by me, sent to lab. Inserted saline lock: 20 gauge in right bb antecubital area, using aseptic technique. Blood collected. 04:35 Notified ED physician of a critical lab result(s). bicarb of 42 Dr Obregon notified. bb 04:53 Sudarshan Loja is Hospitalizing Provider. pkl 05:51 Basic Metabolic Panel Sent. sh9 05:51 CBC with Diff Sent. sh9 05:51 LFT's Sent. sh9 05:51 Magnesium Sent. sh9 Administered Medications: 04:23 Drug: NS 0.9% 1000 ml Route: IV; Rate: 125 ml/hr; Site: left antecubital; sh9 04:23 Drug: Ativan (LORazepam) 0.5 mg Route: IVP; Site: left antecubital; sh9 04:57 Drug: K-Dur (potassium chloride) 40 mEq Route: PO; sh9 Outcome: 04:55 Decision to Hospitalize by Provider. pkl 21:12 Patient left the ED. bb Signatures: Dispatcher [employer] EDMS Babar Obregon MD MD pkMargie Tomlinson RN RN Dorina Medrano Kristen, RN RN truman Roseanne [facility] Guillermina Castaneda RN RN sh9 Corrections: (The following items were deleted from the chart) 04/24 23:20 23:06 Chief complaint: Patient states: Pt stated, " My right hand began to shake then kg began to shake uncontrollably then went up my arm. I knew it was shaking but I couldn't mentally stop it, then both of my legs began to shake. This has never happened before. I cant tell you how long it last." kg 04/25 01:04/24 23:13 PMHx: Hypertension; kg cox [place] 04/25 01:04/24 23:13 PMHx: Home O2 4 Lpm; kg cox [place] 04/25 01:04/24 23:13 PMHx: COPD; kg cox [place] 04/25 01:04/24 23:13 PMHx: Anxiety; kg 9 04/25 01:04/24 23:13 PMHx: acid reflux; kg cox [place] 04/25 01:04/24 23:13 PMHx: spinal stenosis; kg 9
--- NOTE | 2021-04-25 04:56 | EDPHYS ---
Physician Documentation [facility] Name: Mila Whiting Age: 65 yrs Sex: Female : 1955 Arrival Date: 04/24/2021 Time: 21:55 Bed 18 Private MD: ED Physician Babar Obregon HPI: 04/25 03:21 This 65 yrs old Black Female presents to ER via Wheelchair with complaints of Probable pkl Seizure. 03:21 Character of seizure(s): Loss of consciousness: the patient did not lose consciousness, pkl Motor activity: focal activity, of the right hand and both legs. Seizure onset: today. The patient has not experienced similar symptoms in the past. Historical: - Allergies: 04/24 23:13 liquid magnesium; kg 23:13 Stadol; kg - Home Meds: 23:13 amlodipine 5 mg tab 1 tab once daily [Active]; DuoNeb 0.5 mg-3 mg(2.5 mg base)/3 mL kg Inhl nebu [Active]; fluticasone inhalation [Active]; prednisone 10 mg Oral tab [Active]; Proventil Inhl [Active]; Protonix 40 mg Oral TbEC 1 tab once daily [Active]; diazepam 5 mg Oral tab 1 tab 3 times per day [Active]; gabapentin 100 mg oral tab twice a day [Active]; 23:18 [place] 7.5-325 mg Oral tab 1 tab every 6 hours [Active]; kg - PMHx: 04/25 01:30 Hypertension; Home O2 4 Lpm; COPD; Anxiety; acid reflux; spinal stenosis; sh9 - PSHx: 04/24 23:13 Hernia Repair; Right ankle Sx; Cholecystectomy; kg - Immunization history:: Adult Immunizations not immunized, Client reports receiving the Yohan \\T\\ Yohan single-dose vaccine. - Social history:: Smoking status: Patient denies any tobacco usage or history of. Patient uses alcohol, occasionally. ROS: 04/25 03:21 Eyes: Negative for injury, pain, redness, and discharge, ENT: Negative for injury, pkl pain, and discharge, Neck: Negative for injury, pain, and swelling, Cardiovascular: Negative for chest pain, palpitations, and edema, Respiratory: Negative for shortness of breath, cough, wheezing, and pleuritic chest pain, Abdomen/GI: Negative for abdominal pain, nausea, vomiting, diarrhea, and constipation, Back: Negative for injury and pain, MS/Extremity: Negative for injury and deformity, Skin: Negative for injury, rash, and discoloration. Neuro: Positive for seizure activity, of the right hand and both legs. Exam: 03:21 Head/Face: Normocephalic, atraumatic. Eyes: Pupils equal round and reactive to light, pkl extra-ocular motions intact. Lids and lashes normal. Conjunctiva and sclera are non-icteric and not injected. Cornea within normal limits. Periorbital areas with no swelling, redness, or edema. ENT: Nares patent. No nasal discharge, no septal abnormalities noted. Tympanic membranes are normal and external auditory canals are clear. Oropharynx with no redness, swelling, or masses, exudates, or evidence of obstruction, uvula midline. Mucous membranes moist. Neck: Trachea midline, no thyromegaly or masses palpated, and no cervical lymphadenopathy. Supple, full range of motion without nuchal rigidity, or vertebral point tenderness. No Meningismus. Chest/axilla: Normal chest wall appearance and motion. Nontender with no deformity. No lesions are appreciated. Cardiovascular: Regular rate and rhythm with a normal S1 and S2. No gallops, murmurs, or rubs. Normal PMI, no JVD. No pulse deficits. Respiratory: Lungs have equal breath sounds bilaterally, clear to auscultation and percussion. No rales, rhonchi or wheezes noted. No increased work of breathing, no retractions or nasal flaring. Abdomen/GI: Soft, non-tender, with normal bowel sounds. No distension or tympany. No guarding or rebound. No evidence of tenderness throughout. Back: No spinal tenderness. No costovertebral tenderness. Full range of motion. Skin: Warm, dry with normal turgor. Normal color with no rashes, no lesions, and no evidence of cellulitis. MS/ Extremity: Pulses equal, no cyanosis. Neurovascular intact. Full, normal range of motion. Neuro: Awake and alert, GCS 15, oriented to person, place, time, and situation. Cranial nerves II-XII grossly intact. Motor strength 5/5 in all extremities. Sensory grossly intact. Cerebellar exam normal. Normal gait. Vital Signs: 04/24 23:06 BP 170 / 93; Pulse 94; Resp 22; Temp 98.4; Pulse Ox 100% on 2 lpm NC; Weight 63.96 kg; kg Height 5 ft. 1 in. (154.94 cm); Pain 7/10; 04/25 01:20 BP 163 / 101; Pulse 87; Resp 18; Temp 98.3; Pulse Ox 100% on 3 lpm NC; Pain 8/10; sh9 05:50 BP 133 / 76; Pulse 80; Pulse Ox 100% on 3 lpm NC; sh9 04/24 23:06 Body Mass Index 26.64 (63.96 kg, 154.94 cm) kg Ramy Coma Score: 01:19 Eye Response: spontaneous(4). Verbal Response: oriented(5). Motor Response: obeys sh9 commands(6). Total: 15. MDM: 01:27 Patient medically screened. pkl 04:51 Data reviewed: vital signs, nurses notes, lab test result(s), EKG, radiologic studies, pkl CT scan, plain films. ED course: Talked to Andrzej SCOTT ) For observation ( Dr. Loja ). 04/25 01:42 Order name: Basic Metabolic Panel pkl 04/25 01:42 Order name: CBC with Diff pkl 04/25 01:42 Order name: LFT's pkl 04/25 01:42 Order name: Magnesium pkl 04/25 01:42 Order name: NT PRO-BNP; Complete Time: 04:36 pkl 04/25 01:42 Order name: PT-INR; Complete Time: 04:36 pkl 04/25 01:42 Order name: Troponin (emerg Dept Use Only); Complete Time: 04:36 pkl 04/25 01:42 Order name: UDS; Complete Time: 04:36 pkl 04/25 01:43 Order name: Basic Metabolic Panel; Complete Time: 04:36 EDMS 04/25 01:43 Order name: CBC with Automated Diff; Complete Time: 04:36 EDMS 04/25 01:43 Order name: Liver (Hepatic) Function; Complete Time: 04:36 EDMS 04/25 01:43 Order name: Magnesium; Complete Time: 04:36 EDMS 04/25 03:50 Order name: Urine Dipstick-Ancillary; Complete Time: 03:58 EDMS 04/25 09:07 Order name: T4 Free; Complete Time: 13:02 EDMS 04/25 01:42 Order name: XRAY Chest (1 view); Complete Time: 13:02 pkl 04/25 01:42 Order name: EKG; Complete Time: 01:43 pkl 04/25 01:42 Order name: Cardiac monitoring; Complete Time: 02:03 pkl 04/25 01:42 Order name: EKG - Nurse/Tech; Complete Time: 02:02 pkl 04/25 01:42 Order name: IV Saline Lock; Complete Time: 03:58 pkl 04/25 01:42 Order name: CT Head Brain wo Cont; Complete Time: 13:02 pkl 04/25 09:07 Order name: Thyroid Stimulating Hormone; Complete Time: 13:02 EDMS 04/25 12:05 Order name: MRI; Complete Time: 13:02 EDMS 04/25 12:16 Order name: CT; Complete Time: 13:02 EDMS 04/25 14:56 Order name: COVID-19 : Document "Date of Symptom Onset" if Symptomatic. em1 04/25 15:56 Order name: CORONAVIRUS EDPA 04/25 16:11 Order name: ABG Arterial Blood Gas; Complete Time: 13:02 EDMS 04/25 16:55 Order name: SARS-COV-2 RT PCR; Complete Time: 13:02 EDMS 04/25 01:42 Order name: Labs collected and sent; Complete Time: 03:58 pkl 04/25 01:42 Order name: O2 Per Protocol; Complete Time: 02:03 pkl 04/25 01:42 Order name: O2 Sat Monitoring; Complete Time: 02:03 pkl Administered Medications: 04:23 Drug: NS 0.9% 1000 ml Route: IV; Rate: 125 ml/hr; Site: left antecubital; sh9 04:23 Drug: Ativan (LORazepam) 0.5 mg Route: IVP; Site: left antecubital; sh9 04:57 Drug: K-Dur (potassium chloride) 40 mEq Route: PO; sh9 Disposition Summary: 04/25/21 04:55 Hospitalization Ordered Hospitalization Status: Observation pkl Provider: Sudarshan Loja pkl Condition: Stable pkl Problem: new pkl Symptoms: are unchanged pkl Bed/Room Type: Standard pkl Location: [facility] ER HOLD(04/25/21 21:04) bb Room Assignment: ERHOLD-(04/25/21 21:04) bb Diagnosis - Seizures. Unsready gait pkl Forms: - Medication Reconciliation Form pkl - SBAR form pkl Signatures: Dispatcher [employer] Cande Curran RN RN dw Babar Obregon MD MD pkl Margie Burrows RN RN bb Helena Gonzales RN RN tl1 Emilio Leigh tt3 Kimberly Perkins RN RN kg Guillermina Castaneda RN RN sh9 Corrections: (The following items were deleted from the chart) :04/24 23:13 PMHx: Hypertension; [facility] 04/25 01:04/24 23:13 PMHx: Home O2 4 Lpm; [facility] 04/25 01:04/24 23:13 PMHx: COPD; [facility] 04/25 01:04/24 23:13 PMHx: Anxiety; [facility] 04/25 01:04/24 23:13 PMHx: acid reflux; [facility] 04/25 01:04/24 23:13 PMHx: spinal stenosis; [facility] 04/25 06:26 04:55 Telemetry/MedSurg (observation) pkl tl1 06:26 04:55 pkl tl1 18:58 06:26 [facility] ER HOLD tl1 dw 18:58 06:26 ERHOLD- tl1 dw 20:26 18:58 203 dw tt3 21:04 18:58 Telemetry/MedSurg (observation) dw bb 21:04 20:26 tt3 bb
[2021-04-25] MEDS ORDERED: POTASSIUM CL SA 10 MEQ TAB PO ONE (05:20)
--- NOTE | 2021-04-25 06:23 | P.HP ---
Certification for Inpatient Patient admitted to: Observation With expected LOS: <2 Midnights Patient will require the following post-hospital care: None Practitioner: I am a practitioner with admitting privileges, knowledge of patient current condition, hospital course, and medical plan of care. Services: Services provided to patient in accordance with Admission requirements found in Title 42 Section 412.3 of the Code of Federal Regulations Patient History Date of Service: 04/25/21 Reason for admission: tremors History of Present Illness: Ms. Whiting is a 65 yo F with COPD on home O2, HTN, anxiety who presents with an episode oftremors. She said she was leaving jew when both of her hands started shaking uncontrollably and then her legs. She says the epsiode lasted for a few minutes. This has not happened before. She did not lose consciousness. Denies headache, numbness, tingling, pain. She reports fatigue and soreness in her joints after the episode. She drove herself to the ED after the episode. She saw her neurolgoist on Thursday for further workup of numbness in her right foot. She has already seen ortho and had a DEXA scan and they have determined that the hardware from her ankle surgery is not the reason for the numbness. Neurologist was to order an MRI of her spine for further workup. ED admitted for further evaluation of possible seizure and unsteady gait. H/H 11.2. K 3.0. cl 97. CO2 42. Allergies butorphanol tartrate [From Stadol] Allergy (Severe, Verified 03/15/21 14:55) seizures magnesium sulfate Allergy (Severe, Verified 03/15/21 14:55) Anaphylaxis Home Medications: Amlodipine Besylate [Norvasc] 5 mg PO DAILY 08/12/12 Pantoprazole Sodium [Protonix] 40 mg PO DAILY 08/12/12 Albuterol Sulfate [Albuterol Sulfate 0.083% Neb Soln] 2.5 mg IH Q4H PRN #120 units 12/21/15 Buprenorphine [Butrans] 1 each TD EVERY 7TH DAY 07/02/17 Fluticasone Propionate [Flonase Allergy Relief] 9.9 ml NS DAILY 07/02/17 predniSONE [Prednisone*] 10 mg PO DAILY 07/02/17 Ipratropium/Albuterol Sulfate [Iprat-Albut 0.5-3(2.5) mg/3 ml] 3 ml IH QID 10/08/17 Hydrocodone/Acetaminophen [Hydrocodone-Acetamin 7.5-325] 1 tab PO TID 12/27/20 Lactulose 15 ml PO DAILY PRN 12/27/20 Promethazine HCl 1 tab PO Q8H 12/27/20 Albuterol Sulfate [Albuterol Sulfate Hfa] 1 puff IH TIDP PRN 03/15/21 Docusate Sodium [Stool Softener] 100 mg PO DAILY 03/15/21 Multivit-Min/FA/Lycopen/Lutein [Senior Tabs] 1 each PO DAILY 03/15/21 Tiotropium [place] [Spiriva] 1 spray IH DAILY 03/15/21 diazePAM [Valium] 2.5 mg PO BID PRN 03/15/21 - Past Medical/Surgical History Diabetic: No -: Hypertension -: Hepatitis C-treated -: COPD -: Anxiety -: Hernia -: home 02 -: Stenosis -: HX OF UTI -: Cholecystectomy -: Right ankle surgery -: Hernia Repair - Family History Mother -: Hypertension, Diabetes Father -: Hypertension, Diabetes - Social History Smoking Status: Never smoker Alcohol use: Yes CD- Drugs: No Caffeine use: Yes Place of Residence: Home Review of Systems 10-point ROS is otherwise unremarkable Neurological: Seizures Physical Examination - Physical Exam General: Alert, In no apparent distress HEENT: Atraumatic, PERRLA, Mucous membr. moist/pink, EOMI, Sclerae nonicteric Neck: Supple, 2+ carotid pulse no bruit, No LAD, Without JVD or thyroid abnormality Respiratory: Diminished, Expiratory wheezes Cardiovascular: Regular rate/rhythm, Normal S1 S2 Gastrointestinal: Normal bowel sounds, No tenderness Musculoskeletal: No tenderness Integumentary: No rashes Neurological: Normal speech, Normal strength at 5/5 x4 extr, Normal tone, Sensation intact, Normal affect, Abnormal gait Lymphatics: No axilla or inguinal lymphadenopathy - Studies Laboratory Data (last 24 hrs) 04/25/21 03:50: PT 12.8 H, INR 1.11 04/25/21 03:50: WBC 6.50, Hgb 11.2 L, Hct 35.5 L, Plt Count 257 04/25/21 03:50: Sodium 138, Potassium 3.0 L, BUN 4 L, Creatinine 0.44 L, Glucose 82, Magnesium 1.8, Total Bilirubin 0.5, AST 20, ALT 26, Alkaline Phosphatase 70 Assessment and Plan - Problems (Diagnosis) (1) Seizure Current Visit: Yes Status: Acute (2) Unsteady gait Current Visit: Yes Status: Acute (3) COPD (chronic obstructive pulmonary disease) Onset Date: 12/28/17 Current Visit: No Status: Chronic Qualifiers: COPD type: unspecified COPD Qualified Code(s): J44.9 - Chronic obstructive pulmonary disease, unspecified (4) Anemia Current Visit: No Status: Chronic Qualifiers: Anemia type: unspecified type Qualified Code(s): D64.9 - Anemia, unspecified (5) GERD (gastroesophageal reflux disease) Current Visit: No Status: Chronic Qualifiers: Esophagitis presence: without esophagitis (6) Hypertension Onset Date: 12/28/17 Current Visit: No Status: Chronic - Plan MRI brain and lumbar spine pending will consult neurology depending on results continue O2 reconcile and continue home medications potassium replacement protocol DVT ppx Discharge Plan: Home Plan to discharge in: 24 Hours - Advance Directives Does patient have a Living Will: No Does patient have a Durable POA for Healthcare: No - Code Status/Comfort Care Code Status Assessed: Yes (full code ) Critical Care: No Time Spent Managing Pts Care (In Minutes): 70
[2021-04-25] MEDS ORDERED: ALBUTEROL 2.5 MG/3 ML NEB SOL NEB PRN (07:38)
[2021-04-25] MEDS ORDERED: ONDANSETRON 4 MG/2 ML VIAL IV PRN (07:38)
[2021-04-25] MEDS ORDERED: ACETAMINOPHEN 500 MG TAB PO PRN (07:38)
[2021-04-25] MEDS ORDERED: LORazepam 2 MG/ML VIAL IV PRN (07:38)
[2021-04-25 07:58] VITALS: O2SAT 100; BMI 26.6
[2021-04-25] MEDS: IPRATROPIUM BROM 0.5MG/2.5ML NEB SCH ×2 (08:00→14:05)
--- NOTE | 2021-04-25 09:01 | RAD REPORT ---
EXAM DESCRIPTION: RAD - Chest Single View - 04/25/2021 2:08 am CLINICAL HISTORY: seizure Chest pain. COMPARISON: Chest Single View dated 12/27/2020; Chest Single View dated 08/13/2020; Chest Single View dated 07/26/2019; Chest Pa And Lat (2 Views) dated 12/28/2017; Chest For Pe Angio dated 12/27/2020 FINDINGS: Portable technique limits examination quality. Mild COPD is present with mild linear opacities in both lung bases probably representing subsegmental atelectasis. The heart is upper limit of normal in size. No displaced fractures.
[2021-04-25 09:06] LABS: Thyroid Stimulating Hormone 1.61 uIU/mL (0.360-3.740)
[2021-04-25] MEDS ORDERED: PNEUMOCOCCAL VACCINE 0.5 ML IMVAC ONE (10:00)
--- NOTE | 2021-04-25 11:38 | RAD REPORT ---
EXAM DESCRIPTION: CT HEAD WITHOUT IV CONTRAST CLINICAL HISTORY: SEIZURE TECHNIQUE: Contiguous axial CT images obtained through the brain without IV contrast. Coronal and sa gittal reformatted images were provided. This exam was performed according to our departmental dose-optimization program, which includes autom ated exposure control, adjustment of the mA and/or kV according to patient size and/or use of iterati ve reconstruction technique. COMPARISON: 07/26/2019 FINDINGS: Brain: Mild bilateral periventricular and subcortical white matter hypodensity which is no nspecific and can be seen in the clinical setting of chronic microvascular angiopathy without signifi cant interval change. No focal mass effect. Tello-white matter differentiation is within normal limits . No hemorrhage. Ventricles: No ventriculomegaly or midline shift. Extra-axial spaces: No extra-axial collection or hemorrhage. Paranasal sinuses and mastoid air cells: Right maxillary sinus mucous retention cyst/polyp. Vessels: There is atherosclerotic disease of the internal carotid arteries bilaterally. Bones: Unremarkable Soft tissues: Unremarkable IMPRESSION: 1. No acute hemorrhage, focal mass or large territory infarction. 2. Other findings as above. Electronically signed by: Sweta Perez MD 04/25/2021 2:53 AM CDT Due to temporary technical issues with the PACS/Fluency reporting system, reports are being signed by the in house radiologist without review as a courtesy to ensure prompt reporting. The interpreting r adiologist is fully responsible for the content of the report.
[2021-04-25 11:43] VITALS: TEMP 97.6
--- NOTE | 2021-04-25 12:04 | RAD REPORT ---
EXAM DESCRIPTION: MRI - Brain Wo Cont - 04/25/2021 11:52 am CLINICAL HISTORY: tremors Headache, drowsiness COMPARISON: Head Brain Wo Cont dated 04/25/2021 TECHNIQUE: Multi-sequence, multiplanar MR imaging of the brain was performed without contrast. FINDINGS: No intracranial hemorrhage, hydrocephalus or extra-axial fluid collections.Mild T2 and FLA IR hyperintensity in the periventricular white matter. No edema or shift of midline structures. No fi ndings to suspect brain mass. DWI is negative for acute CVA. Midline structures are normally formed. 9 mm polyp versus mucous retention cyst right maxillary antrum inferiorly. Paranasal sinuses and mast oids are otherwise clear. IMPRESSION: No acute or worrisome intracranial abnormalities.
--- NOTE | 2021-04-25 12:16 | RAD REPORT ---
EXAM DESCRIPTION: CT - Spine Lumbar Wo Con - 04/25/2021 11:57 am CLINICAL HISTORY: Radiculopathy. numbness in feet COMPARISON: No comparisons TECHNIQUE: Axial noncontrast CT imaging of the lumbar spine was performed with coronal and sagittal re-formatted images. All CT scans are performed using dose optimization technique as appropriate and may include automated exposure control or mA/KV adjustment according to patient size. FINDINGS: No acute lumbar spine fracture seen. No aggressive marrow pattern or malalignment. Paraspinal tissues are normal in thickness. No paraspinal abscess or hematoma seen. Aortic atheroscle rosis. Mild posterior disc bulge is seen at L3-4. Moderate to large disc herniation is suspected at L4-5 with facet hypertrophy. Mild posterior disc bulge is present with vacuum disc degeneration at L5-S1. Mild facet hypertrophy is present bilaterally. IMPRESSION: Large disc herniation is suspected at L4-5 resulting in central canal stenosis. Recommen d follow-up MRI of the lumbar spine are hardware evaluation. No acute fracture/ acute lumbar finding.
[2021-04-25] MEDS ORDERED: IPRATROPIUM BROM 0.5MG/2.5ML ONE (14:27)
[2021-04-25] MEDS ORDERED: ACETAMINOPHEN 500 MG TAB ONE (15:49)
[2021-04-25 16:09] LABS: Arterial Blood Carboxyhemoglob 1.1 % (0-1.5); Blood Gas Oxyhemoglobin 77.1 % (94-97); Blood O2 Saturation 78.9 % (92-98.5)
[2021-04-25] MEDS ORDERED: CEFTRIAXONE 1 GM/NS 50 ML 1 GM/50 ML BAG IV ONE (18:14)
[2021-04-25] MEDS ORDERED: CEFTRIAXONE/SWI 1gm 1 GM/10 ML SYR ONE (18:46)
[2021-04-25] MEDS ORDERED: CEFTRIAXONE/SWI 1gm 1 GM/10 ML SYR IVP ONE (19:00)
--- NOTE | 2021-04-25 19:15 | P.DS ---
Admission Date: 04/25/21 Discharge Date: 04/25/21 Disposition: ROUTINE DISCHARGE Discharge Condition: FAIR Reason for Admission: tremors - Problems (1) Acute respiratory failure with hypercapnia Current Visit: Yes Status: Acute (2) UTI (urinary tract infection) Current Visit: Yes Status: Acute (3) Seizure Current Visit: Yes Status: Acute (4) COPD (chronic obstructive pulmonary disease) Onset Date: 12/28/17 Current Visit: No Status: Chronic Qualifiers: COPD type: unspecified COPD Qualified Code(s): J44.9 - Chronic obstructive pulmonary disease, unspecified Brief History of Present Illness: 65 yo F with COPD on home O2, HTN, anxiety who presents with an episode of tremors. This was described as uncontrollable shaking of the hands and legs. She did not lose consciousness. This was the 1st time she experienced anything like this. She drove herself to the ED after the episode. She saw her neurolgoist on Thursday for further workup of numbness in her right foot. According to the patient, Neurologist was to order an MRI of her spine for further workup. Patient admitted for further evaluation of possible seizure and unsteady gait. Hospital Course: Patient placed under observation on the medical floor. She did not have any further shaking episodes or tremor. MRI of the brain obtained did not show any acute disease. Patient noted to have CO2 retention with lower stress with for seizures. Case discussed with Dr. Bullock, neurologist who recommended no antiseizure medication for further seizure episode. Patient has obstructive sleep apnea but has been noncompliant with CPAP use. She also has a history of COPD. Patient advised to be compliant with his CPAP in order to lower her pCO2 to reduce incidence of seizures. She reported symptoms of UTI by UA did not suggest UTI. Patient given a dose of IV Rocephin for uncomplicated UTI. She is informed to follow with Dr. Bullock within 1 week for further evaluation. Vital Signs/Physical Exam: Temp Pulse Resp BP Pulse Ox 97.6 F 80 17 117/63 100 04/25/21 11:42 04/25/21 16:00 04/25/21 16:00 04/25/21 16:00 04/25/21 16:00 General: Alert, In no apparent distress, Oriented x3 HEENT: Mucous membr. moist/pink Neck: JVD not distended Respiratory: Clear to auscultation bilaterally, Normal air movement Cardiovascular: Regular rate/rhythm, Normal S1 S2 Gastrointestinal: Soft and benign, Non-distended Musculoskeletal: No swelling Integumentary: No rashes Neurological: Normal strength at 5/5 x4 extr Laboratory Data at Discharge: WBC 6.50 K/uL (4.3-10.9) 04/25/21 03:50 Hgb 11.2 g/dL (12.0-15.0) L 04/25/21 03:50 Hct 35.5 % (36.0-45.0) L 04/25/21 03:50 Plt Count 257 K/uL (152-406) 04/25/21 03:50 PT 12.8 SECONDS (9.5-12.5) H 04/25/21 03:50 INR 1.11 04/25/21 03:50 Sodium 138 mmol/L (136-145) 04/25/21 03:50 Potassium 3.0 mmol/L (3.5-5.1) L 04/25/21 03:50 BUN 4 mg/dL (7-18) L 04/25/21 03:50 Creatinine 0.44 mg/dL (0.55-1.3) L 04/25/21 03:50 Glucose 82 mg/dL (74-106) 04/25/21 03:50 Magnesium 1.8 mg/dL (1.8-2.4) 04/25/21 03:50 Total Bilirubin 0.5 mg/dL (0.2-1.0) 04/25/21 03:50 AST 20 U/L (15-37) 04/25/21 03:50 ALT 26 U/L (12-78) 04/25/21 03:50 Alkaline Phosphatase 70 U/L (45-117) 04/25/21 03:50 Home Medications: Amlodipine Besylate [Norvasc] 5 mg PO DAILY 08/12/12 Pantoprazole Sodium [Protonix] 40 mg PO DAILY 08/12/12 Albuterol Sulfate [Albuterol Sulfate 0.083% Neb Soln] 2.5 mg IH Q4H PRN #120 units 12/21/15 Buprenorphine [Butrans] 1 each TD EVERY 7TH DAY 07/02/17 Fluticasone Propionate [Flonase Allergy Relief] 9.9 ml NS DAILY 07/02/17 predniSONE [Prednisone*] 10 mg PO DAILY 07/02/17 Ipratropium/Albuterol Sulfate [Iprat-Albut 0.5-3(2.5) mg/3 ml] 3 ml IH QID 10/08/17 Hydrocodone/Acetaminophen [Hydrocodone-Acetamin 7.5-325] 1 tab PO TID 12/27/20 Lactulose 15 ml PO DAILY PRN 12/27/20 Promethazine HCl 1 tab PO Q8H 12/27/20 Albuterol Sulfate [Albuterol Sulfate Hfa] 1 puff IH TIDP PRN 03/15/21 Docusate Sodium [Stool Softener] 100 mg PO DAILY 03/15/21 Multivit-Min/FA/Lycopen/Lutein [Senior Tabs] 1 each PO DAILY 03/15/21 Tiotropium [place] [Spiriva] 1 spray IH DAILY 03/15/21 diazePAM [Valium*] 2.5 mg PO BID PRN 03/15/21 Diet: AHA Activity: Ad zena Followup: Finesse Smith MD [ACTIVE - CAN ADMIT] - 1-2 Weeks Unknown,U [Primary Care Provider] - Billy Bullock MD [ASSOCIATE-ACTIVE - CAN ADMIT] - 1 Week
[2021-04-25 20:59] VITALS: BP 150/80
== END 2021-04-25 21:11 | disposition home or self-care (01) ==
LOC: ER 21:53 → ERHOLD 04-25 06:42
PROVIDERS: ADMIT Internal Medicine; ATTEND Internal Medicine
DX: R56.9 Unspecified convulsions (principal); J96.02 Acute respiratory failure with hypercapnia; N39.0 Urinary tract infection, site not specified; J44.9 Chronic obstructive pulmonary disease, unspecified; R26.81 Unsteadiness on feet; I10 Essential (primary) hypertension; D64.9 Anemia, unspecified; K21.9 Gastro-esophageal reflux disease without esophagitis; F41.9 Anxiety disorder, unspecified; G47.33 Obstructive sleep apnea (adult) (pediatric); Z99.81 Dependence on supplemental oxygen; Z91.19 Patient's noncompliance with other medical treatment and regimen; Z20.822 Contact with and (suspected) exposure to COVID-19; Z88.8 Allergy status to other drugs, medicaments and biological substances; Z90.49 Acquired absence of other specified parts of digestive tract; Z86.19 Personal history of other infectious and parasitic diseases; Z82.49 Family history of ischemic heart disease and other diseases of the circulatory system; Z83.3 Family history of diabetes mellitus
CPT/HCPCS: 93005; 85025; 80048; 36415; 83735; 85610; 80076; 84443; 81003; 84484; 84439; 83880; 80307; 72131; 70450; 71045; 70551; 94640; 82805; 94760; 96374; 99284; U0003; J0696; J7030; G0378 ×2

== ENCOUNTER 2021-08-12 13:09 | Emergency (ER) | payer OTHER ==
--- OUTSIDE RECORDS SUMMARY | 2021-08-12 13:20 | XMS REPORT | Continuity of Care Document ---
:1955 Author Organization [facility] t Address [address] [place] [address] Care Team Providers Name Role Phone Victor Hugo Justice MD Primary Care Physician ROBERTO Attending Clinician Unavailable ROBERTO Attending Clinician Unavailable EULALIO Attending Clinician Unavailable Victor Hugo Billy MD Attending Clinician Aníbal Sommer MD Attending Clinician ANÍBAL SOMMER Attending Clinician Unavailable ANÍBAL SOMMER Attending Clinician Unavailable RADIOLOGY Attending Clinician Unavailable Deborah HYLTON, L Attending Clinician Doctor Unassigned, Name Attending Clinician Unavailable VICTOR HUGO BILLY Attending Clinician Unavailable Valentin NO Attending Clinician Unavailable Tonya ALEGRIA S Attending Clinician Broderick CASTANEDA Attending Clinician Unavailable Lab, Fam Pob I Attending Clinician Unavailable Neida SUAZOP Attending Clinician SILVIO Attending Clinician Unavailable OTHMAN, OTHMAN ALI Attending Clinician Unavailable LINDA MCKEON Admitting Clinician Unavailable Payers Payer Name Policy Type Policy Number Effective Date Expiration Date Broderick RAMIREZ [id number] 2020 PLUS CHOICE 00:00:00 [facility] ALISIA CARSON [id number] 2021 PLUS 00:00:00 INPATIENT PART B [id number] 2020 ONLY MEDICARE 00:00:00 Problems Condition Condition Condition Status Onset Resolution Last Treating Co mments Source Name Details Category Date Date Treatment Clinician Date COPD COPD Disease Active Univers exacerbati exacerbati 12-29 it y of on on 00:00: [place] [facility] Symptomati Symptomati Disease Active U nivers c c 7 [place] of menopausal [place] female or female 00 Medi josé miguel climacteri climacteri Br anch c states c states Essential Essential Disease Active Uni vers hypertensi hypertensi 02-02 it y of on, benign on, benign [place] [facility] Chronic Chronic Disease Active Univers airway airway 05 ity of obstructio obstructio [place], not n, not 00 Medical elsewhere elsewhere Bran ch classified classified Spinal Spinal Disease Active Univers stenosis, stenosis, 02-02 it[place] unspecifie unspecifie [place] [...] 00 Center s Butorpha Propensi Active Anaphylaxis C [facility] nol ty [facility] 4-29 [facility] adverse [facility]: Medical reaction 00 Center s MAGNESIU DRUG Active High N/V Univers M INGREDI 3-05 ity of 00:00: [place] 00 [facility] Magnesiu Propensi Active Anaphylaxis Liquid U nivers m ty to 3-05 form ity of adverse 00:00: [place] reaction 00 Medical s Branch BUTORPHA DRUG Active High Unknown-Cmnt 2005-0 Un nathen NOL INGREDI 6-05 ity of TARTRATE 00:00: [place] 00 [facility] Branch Butorpha Propensi Active Anaphylaxis 2005-0 Seizures Univers nol ty to 6-05 per pt ity of Tartrate adverse 00:00: [place] reaction 00 Medical s Branch Stadol Adverse Active Info Not [facility] Magnesiu Adverse Active Info Not [facility] Reaction [facility] Social History Social Habit Start Date Stop Date Quantity Comments Source History of tobacco Cigarette Smoker University of use [facility] Exposure to Not sure University of SARS-CoV-2 (event) [facility] History [facility] University o f Alcohol Frequency [facility] History [facility] University o f Alcohol Std Drinks [facility] History [facility] o f Alcohol Binge [facility] Sex Assigned [facility] Tobacco use and 2018-12-28 2018-12-28 Never used [facility] - exposure 00:00:00 00:00:00 [facility] Alcohol intake 2018-12-28 2018-12-28 [facility]:00:00 non-drinker of Medical nter alcohol (finding) Tobacco Comment 2018-12-27 2018-12-27 quit 2 yrs ago JESSICA crawford Luprem - 00:00:00 00:00:00 [facility] Cigarettes smoked 2015-12-30 2015-12-30 Univers ity of current (pack per 00:00:00 00:00:00 [facility] ) - Reported Branch Cigarette 2015-12-30 2015-12-30 University of pack-years 00:00:00 00:00:00 [facility] Alcohol Comment 2007-02-02 2007-02-02 social drinker Unive rsity of 00:00:00 00:00:00 [facility] Smoking Status Start Date Stop Date Source Former smoker 2018-12-28 00:00:00 2018-12-28 00:00:[address] [facility] Medications Ordered Filled Start Stop Current Ordering Indication Dosage Frequency Signature Comments Components Source Medication Medication Date Date Medication? Clinician (SIG) Name Name diazePAM 2020-08 Yes [id number] 5mg Take 1 Uni vers (VALIUM) 5 1-16 tablet by ity of mg tablet 00:00: mouth 3 (three) Medical times Branch daily. cefUROXime 2020-08 Yes [id number] 250mg Take 1 Univers 250 mg 1-09 tablet by ity of tablet 00:00: mouth 2 (two) Medical times Branch daily. cefUROXime 2020-08 Yes [id number] 250mg Take 1 Univers 250 mg 1-09 tablet by ity of tablet 00:00: mouth 2 (two) Medical times Branch daily. cefUROXime 2020-08 Yes [id number] 250mg Take 1 Univers 250 mg 1-09 tablet by ity of tablet 00:00: mouth 2 (two) Medical times Branch daily. pantoprazol 2020-08 40mg Take 40 mg Univers e 40 mg EC 0-04 10-04 by mouth ity of tablet 17:11: 00:00 daily. [place] 02 :00 Medical Branch pantoprazol 2020-08 Yes [id number] 40mg Take 1 Univers e 40 mg EC 0-04 tablet by ity of tablet 00:00: mouth 00 daily. Medical Branch diazePAM 2020-08 Yes [id number] 5mg Take 1 Uni vers (VALIUM) 5 0-04 tablet by ity of mg tablet 00:00: mouth 3 (three) Medical times Branch daily. pantoprazol 2020-08 Yes [id number] 40mg Take 1 Univers e 40 mg EC 0-04 tablet by ity of tablet 00:00: mouth 00 daily. Medical Branch diazePAM 2020-08 Yes [id number] 5mg Take 1 Uni vers (VALIUM) 5 0-04 tablet by ity of mg tablet 00:00: mouth 3 (three) Medical times Branch daily. pantoprazol 2020-08 Yes [id number] 40mg Take 1 Univers e 40 mg EC 0-04 tablet by ity of tablet 00:00: mouth 00 daily. Medical Branch diazePAM 2020-08 Yes [id number] 5mg Take 1 Uni vers (VALIUM) 5 0-04 tablet by ity of mg tablet 00:00: mouth 3 00 (three) Medical times Branch daily. pantoprazol 2020-08 Yes [id number] 40mg Take 1 Univers e 40 mg EC 0-04 tablet by ity of tablet 00:00: mouth [place] 00 daily. Medical Branch diazePAM 2020-08- No [id number] 5mg Take 1 Un nathen (VALIUM) 5 0-04 11-16 tablet by ity of mg tablet 00:00: [place] ([place] Medical times Branch daily. diazePAM Yes [id number] 5mg Take 1 Uni vers (VALIUM) 5 9-08 tablet by ity of mg tablet 00:00: mouth 3 (three) Medical times Branch daily. diazePAM Yes [id number] 5mg Take 1 Uni vers (VALIUM) 5 9-08 tablet by ity of mg tablet 00:00: mouth 3 (three) Medical times Branch daily. diazePAM 0 Yes [id number] 5mg Take 1 Uni vers (VALIUM) 5 9-08 tablet by ity of mg tablet 00:00: mouth 3 (three) Medical times Branch daily. diazePAM Yes [id number] 5mg Take 1 Uni vers (VALIUM) 5 9-08 tablet by ity of mg tablet 00:00: mouth 3 (three) Medical times Branch daily. diazePAM 2020- No [id number] 5mg Take 1 Un nathen (VALIUM) 5 9-08 10-04 tablet by ity of mg tablet 00:00: [place] ([place] Medical times Branch daily. diazePAM Yes [id number] 5mg Take 1 Uni vers (VALIUM) 5 7-22 tablet by ity of mg tablet 00:00: mouth 3 (three) Medical times Branch daily. diazePAM Yes [id number] 5mg Take 1 Uni vers (VALIUM) 5 7-22 tablet by ity of mg tablet 00:00: mouth 3 (three) Medical times Branch daily. diazePAM 2020-0 2020- No [id number] 5mg Take 1 Un nathen (VALIUM) 5 7-22 09-08 tablet by ity of mg tablet 00:00: 00:00 [place] (three) Medical times Branch daily. diazePAM 2020- No [id number] 5mg Take 1 Un nathen (VALIUM) 5 7-22 09-08 tablet by ity of mg tablet 00:00: 00:00 [place] 3 [place] :[place] (three) Medical times Branch daily. diazePAM 2020-0 2021- No [id number] 5mg Take 1 Un nathen (VALIUM) 5 7-22 09-08 tablet by ity of mg tablet 00:00: 00:00 [place] 3 [place] (three) Medical times Branch daily. cefUROXime 2021-0 Yes [id number] 500mg Take 1 Univers 500 mg 6-11 tablet by ity of tablet 00:00: mouth (two) Medical times Branch daily. cefUROXime 1-0 Yes [id number] 500mg Take 1 Univers 500 mg 6-11 tablet by ity of tablet 00:00: mouth (two) Medical times Branch daily. cefUROXime 2021-0 Yes [id number] 500mg Take 1 Univers 500 mg 6-11 tablet by ity of tablet 00:00: mouth (two) Medical times Branch daily. cefUROXime 1-0 Yes [id number] 500mg Take 1 Univers 500 mg 6-11 tablet by ity of tablet 00:00: mouth (two) Medical times Branch daily. cefUROXime 1-0 Yes [id number] 500mg Take 1 Univers 500 mg 6-11 tablet by ity of tablet 00:00: mouth (two) Medical times Branch daily. cefUROXime 2021-0 Yes [id number] 500mg Take 1 Univers 500 mg 6-11 tablet by ity of tablet 00:00: mouth (two) Medical times Branch daily. cefUROXime 2021-0 Yes [id number] 500mg Take 1 Univers 500 mg 6-11 tablet by ity of tablet 00:00: mouth (two) Medical times Branch daily. cefUROXime 2021-0 Yes [id number] 500mg Take 1 Univers 500 mg 6-11 tablet by ity of tablet 00:00: mouth (two) Medical times Branch daily. cefUROXime 2021-0 Yes [id number] 500mg Take 1 Univers 500 mg 6-11 tablet by ity of tablet 00:00: mouth 2 (two) Medical times Branch daily. diazePAM 2021-0 Yes [id number] 5mg Take 1 Uni vers (VALIUM) 5 6-11 tablet by ity of mg tablet 00:00: mouth 3 (three) Medical times Branch daily. cefUROXime 2021-0 Yes [id number] 500mg Take 1 Univers 500 mg 6-11 tablet by ity of tablet 00:00: mouth (two) Medical times Branch daily. diazePAM 2021-0 Yes [id number] 5mg Take 1 Uni vers (VALIUM) 5 6-11 tablet by ity of mg tablet 00:00: mouth (three) Medical times Branch daily. cefUROXime 1-0 Yes [id number] 500mg Take 1 Univers 500 mg 6-11 tablet by ity of tablet 00:00: mouth (two) Medical times Branch daily. diazePAM 2021-0 Yes [id number] 5mg Take 1 Uni vers (VALIUM) 5 6-11 tablet by ity of mg tablet 00:00: mouth (three) Medical times Branch daily. cefUROXime 1-0 Yes [id number] 500mg Take 1 Univers 500 mg 6-11 tablet by ity of tablet 00:00: mouth (two) Medical times Branch daily. diazePAM 1-0 Yes [id number] 5mg Take 1 Uni vers (VALIUM) 5 6-11 tablet by ity of mg tablet 00:00: mouth (three) Medical times Branch daily. cefUROXime 1-0 Yes [id number] 500mg Take 1 Univers 500 mg 6-11 tablet by ity of tablet 00:00: mouth (two) Medical times Branch daily. diazePAM 1-0 Yes [id number] 5mg Take 1 Uni vers (VALIUM) 5 6-11 tablet by ity of mg tablet 00:00: mouth (three) Medical times Branch daily. cefUROXime 1-0 Yes [id number] 500mg Take 1 Univers 500 mg 6-11 tablet by ity of tablet 00:00: mouth (two) Medical times Branch daily. diazePAM 2021-0 Yes [id number] 5mg Take 1 Uni vers (VALIUM) 5 6-11 tablet by ity of mg tablet 00:00: mouth (three) Medical times Branch daily. cefUROXime 2021-0 Yes [id number] 500mg Take 1 Univers 500 mg 6-11 tablet by ity of tablet 00:00: mouth (two) Medical times Branch daily. diazePAM 2021-0 Yes [id number] 5mg Take 1 Uni vers (VALIUM) 5 6-11 tablet by ity of mg tablet 00:00: mouth 3 [place] (three) Medical times Branch daily. cefUROXime 1-0 Yes [id number] 500mg Take 1 Univers 500 mg 6-11 tablet by ity of tablet 00:00: mouth 2 [place] 00 (two) Medical times Branch daily. diazePAM 2020-0 Yes [id number] 5mg Take 1 Uni vers (VALIUM) 5 6-11 tablet by ity of mg tablet 00:00: mouth 3 00 (three) Medical times Branch daily. cefUROXime 2020-0 Yes [id number] 500mg Take 1 Univers 500 mg 6-11 tablet by ity of tablet 00:00: mouth 2 [place] (two) Medical times Branch daily. cefUROXime 1-0 Yes [id number] 500mg Take 1 Univers 500 mg 6-11 tablet by ity of tablet 00:00: mouth 2 [place] (two) Medical times Branch daily. cefUROXime 2020-0 Yes [id number] 500mg Take 1 Univers 500 mg 6-11 tablet by ity of tablet 00:00: mouth 2 [place] (two) Medical times Branch daily. cefUROXime 2020-0 Yes [id number] 500mg Take 1 Univers 500 mg 6-11 tablet by ity of tablet 00:00: mouth 2 [place] (two) Medical times Branch daily. cefUROXime 2020-0 Yes [id number] 500mg Take 1 Univers 500 mg 6-11 tablet by ity of tablet 00:00: mouth 2 [place] (two) Medical times Branch daily. diazePAM 2020-0 2020- No [id number] 5mg Take 1 Un nathen (VALIUM) 5 6-11 07-22 tablet by ity of mg tablet 00:00: 00:00 [place] 3 [place] (three) Medical times Branch daily. predniSONE 2021-0 Yes 5mg Take 5 mg Un nathen 5 mg tablet 4-13 by mouth. ity of 19:13: [place] [address] Medical Branch predniSONE 1-0 Yes 5mg Take 5 mg Un nathen 5 mg tablet 4-13 by mouth. ity of 19:13: [address] predniSONE 1-0 Yes 5mg Take 5 mg Un nathen 5 mg tablet 4-13 by mouth. ity of 19:13: [address] predniSONE 2021-0 Yes 5mg Take 5 mg Un nathen 5 mg tablet 4-13 by mouth. ity of 19:13: [address] predniSONE 2021-0 Yes 5mg Take 5 mg Un nathen 5 mg tablet 4-13 by mouth. ity of 19:13: [address] predniSONE 2021-0 Yes 5mg Take 5 mg Un nathen 5 mg tablet 4-13 by mouth. ity of 19:13: [address] predniSONE 2021-0 Yes 5mg Take 5 mg Un nathen 5 mg tablet 4-13 by mouth. ity of 19:13: [address] predniSONE 1-0 Yes 5mg Take 5 mg Un nathen 5 mg tablet 4-13 by mouth. ity of 19:13: [address] predniSONE 2021-0 Yes 5mg Take 5 mg Un nathen 5 mg tablet 4-13 by mouth. ity of 19:13: [address] predniSONE 2020-0 Yes 5mg Take 5 mg Un nathen 5 mg tablet 4-13 by mouth. ity of 19:13: [address] predniSONE 1-0 Yes 5mg Take 5 mg Un nathen 5 mg tablet 4-13 by mouth. ity of 19:13: [address] predniSONE 1-0 Yes 5mg Take 5 mg Un nathen 5 mg tablet 4-13 by mouth. ity of 19:13: [address] predniSONE 1-0 Yes 5mg Take 5 mg Un nathen 5 mg tablet 4-13 by mouth. ity of 19:13: [address] predniSONE 2021-0 Yes 5mg Take 5 mg Un nathen 5 mg tablet 4-13 by mouth. ity of 19:13: [address] predniSONE 2021-0 Yes 5mg Take 5 mg Un nathen 5 mg tablet 4-13 by mouth. ity of 19:13: [address] predniSONE 2021-0 Yes 5mg Take 5 mg Un nathen 5 mg tablet 4-13 by mouth. ity of 19:13: [address] predniSONE 2021-0 Yes 5mg Take 5 mg Un nathen 5 mg tablet 4-13 by mouth. ity of 19:13: [address] predniSONE 2021-0 Yes 5mg Take 5 mg Un nathne 5 mg tablet 4-13 by mouth. ity of 19:13: [address] Branch predniSONE 2021-0 Yes 5mg Take 5 mg Un nathen 5 mg tablet 4-13 by mouth. ity of 19:13: [address] Branch predniSONE 1-0 Yes 5mg Take 5 mg Un nathen 5 mg tablet 4-13 by mouth. ity of 19:13: [address] Branch DICYCLOMINE 1-0 2020- No Take by U nivers HCL 12-11 mouth. ity of (DICYCLOMIN 19:13: 00:00 [place] E ORAL) 19 :00 Medical Branch LACTULOSE 2020-0 2020- No Take by Uni vers ORAL 12-11 mouth. ity of 19:13: 00:00 [place] 19 :00 Medical Branch ALBUTEROL 2020-0 2020- No Inhale. [facility] ers SULFATE 12-11 ity of (PROVENTIL 19:13: 00:00 [place] INHALE) 19 :00 Medical Branch DICYCLOMINE 2020-0 2020- No Take by U nivers HCL 12-11 mouth. ity of (DICYCLOMIN 19:13: 00:00 [place] E ORAL) 19 :00 Medical Branch LACTULOSE 2020-0 2020- No Take by Uni vers ORAL 12-11 mouth. ity of 19:13: 00:00 [place] 19 :00 Medical Branch ALBUTEROL 1-0 2020- No Inhale. [facility] ers SULFATE 12-11 ity of (PROVENTIL 19:13: 00:00 [place] INHALE) 19 :00 Medical Branch predniSONE 2021-0 Yes 5mg Take 5 mg Un nathen 5 mg tablet 4-13 by mouth. ity of 14:13: [address] Branch predniSONE 2021-0 Yes 5mg Take 5 mg Un nathen 5 mg tablet 4-13 by mouth. ity of 14:13: [address] Branch predniSONE 2021-0 Yes 5mg Take 5 mg Un nathen 5 mg tablet 4-13 by mouth. ity of 14:13: [address] Branch predniSONE 2021-0 Yes 5mg Take 5 mg Un nathen 5 mg tablet 4-13 by mouth. ity of 14:13: [address] Branch predniSONE 2021-0 Yes 5mg Take 5 mg Un nathen 5 mg tablet 4-13 by mouth. ity of 14:13: [place] [address] Medical Branch predniSONE 2020-0 Yes 5mg Take 5 mg Un nathen 5 mg tablet 4-13 by mouth. ity of 14:13: [place] [address] Medical Branch predniSONE 2020-0 Yes 5mg Take 5 mg Un nathen 5 mg tablet 4-13 by mouth. ity of 14:13: [address] Branch predniSONE 2020-0 Yes 5mg Take 5 mg Un nathen 5 mg tablet 4-13 by mouth. ity of 14:13: [place] [address] Medical Branch baclofen 10 2020-0 Yes Univer s mg tablet -03 ity of 00:00: [place] [facility] baclofen 10 2020-0 Yes Univer s mg tablet - ity of 00:00: [place] [facility] baclofen 10 2020-0 Yes Univer s mg tablet - ity of 00:00: [place] [facility] baclofen 10 2020-0 Yes Univer s mg tablet - ity of 00:00: [place] [facility] baclofen 10 2020-0 Yes Univer s mg tablet - ity of 00:00: [place] [facility] baclofen 10 2020-0 Yes Univer s mg tablet - ity of 00:00: [place] [facility] baclofen 10 2020-0 Yes Univer s mg tablet - ity of 00:00: [place] [facility] baclofen 10 2020-0 Yes Univer s mg tablet - ity of 00:00: [place] [facility] baclofen 10 2020-0 Yes Univer s mg tablet - ity of 00:00: [place] [facility] baclofen 10 2020-0 Yes Univer s mg tablet - ity of 00:00: [place] [facility] baclofen 10 2020-0 Yes Univer s mg tablet 4- ity of 00:00: [place] [facility] baclofen 10 2020-0 Yes Univer s mg tablet - ity of 00:00: [place] [facility] baclofen 10 2020-0 Yes Univer s mg tablet 4- ity of 00:00: [place] [facility] baclofen 10 2020-0 Yes Univer s mg tablet 4- ity of 00:00: [place] [facility] baclofen 10 2020-0 Yes Univer s mg tablet 4- ity of 00:00: [place] [facility] baclofen 10 2020-0 Yes Univer s mg tablet 4-03 ity of 00:00: [place] [facility] baclofen 10 2020-0 Yes Univer s mg tablet 4-03 ity of 00:00: [place] [facility] baclofen 10 2020-0 Yes Univer s mg tablet 4-03 ity of 00:00: [place] [facility] baclofen 10 2020-0 Yes Univer s mg tablet 4- ity of 00:00: [place] [facility] baclofen 10 2020-0 Yes Univer s mg tablet 4-03 ity of 00:00: [place] [facility] baclofen 10 2020-0 Yes Univer s mg tablet 4- ity of 00:00: [place] [facility] baclofen 10 2020-0 Yes Univer s mg tablet 4- ity of 00:00: [place] [facility] baclofen 10 2020-0 Yes Univer s mg tablet 4-03 ity of 00:00: [place] [facility] baclofen 10 2020-0 Yes Univer s mg tablet 4- ity of 00:00: [place] [facility] baclofen 10 2020-0 Yes Univer s mg tablet 4- ity of 00:00: [place] [facility] baclofen 10 2020-0 Yes Univer s mg tablet 4-03 ity of 00:00: [place] [facility] baclofen 10 2020-0 Yes Univer s mg tablet 4-03 ity of 00:00: [place] [facility] baclofen 10 2020-0 Yes Univer s mg tablet 4-03 ity of 00:00: [place] [facility] DICYCLOMINE 2020-0 Yes Take by Un nathen HCL 3-12 mouth. ity of (DICYCLOMIN 20:41: [place] E ORAL) 20 Medical Branch DICYCLOMINE 0 Yes Take by Un nathen HCL 3-12 mouth. ity of (DICYCLOMIN 20:41: [place] E ORAL) 20 Medical Branch DICYCLOMINE 0 Yes Take by Un nathen HCL 3-12 mouth. ity of (DICYCLOMIN 20:41: [place] E ORAL) 20 Medical Branch DICYCLOMINE Yes Take by Un nathen HCL 3-12 mouth. ity of (DICYCLOMIN 20:41: [place] E ORAL) 20 Medical Branch DICYCLOMINE Yes Take by Un nathen HCL 3-12 mouth. ity of (DICYCLOMIN 20:41: [place] E ORAL) 20 Medical Branch DICYCLOMINE Yes Take by Un nathen HCL 3-12 mouth. ity of (DICYCLOMIN 20:41: [place] E ORAL) 20 Medical Branch IPRATROPIUM 2020- No Inhale. Un nathen BROMIDE 3-12 -12 ity of INHALE 20:41: 00:00 [place] : Medical Branch IPRATROPIUM 2020- No Inhale. Un nathen BROMIDE 3-12 -12 ity of INHALE 20:41: 00:00 [place] : Medical Branch IPRATROPIUM 2020- No Inhale. Un nathen BROMIDE 3-12 -12 ity of INHALE 20:41: 00:00 :00 Medical Branch docusate 2020- No 200mg Take 200 Uni vers 100 mg 3-12 03-12 mg by ity of capsule 20:40: 00:00 mouth. 03 :00 Medical Branch docusate 2020- No 200mg Take 200 Uni vers 100 mg 3-12 03-12 mg by ity of capsule 20:40: 00:00 mouth. 03 :00 Medical Branch docusate 2020- No 200mg Take 200 Uni vers 100 mg 3-12 03-12 mg by ity of capsule 20:40: 00:00 mouth. [place] 03 :00 Medical Branch pantoprazol Yes 40mg Take 40 mg Univers e 40 mg EC 3-12 by mouth ity o f tablet 20:37: daily. [place] 07 Medical Branch HYDROcodone Yes 1{tbl} Take 1 Un nathen -acetaminop 3-12 tablet by ity of hen 7.5-325 20:37: mouth 3 [place] mg per 07 (three) Medical tablet times Branch daily. OXYGEN-AIR Yes by Univers DELIVERY 3-12 Miscellane ity o f SYSTEMS 20:37: ous route. Tripp morgan [address] Branch pantoprazol Yes 40mg Take 40 mg Univers e 40 mg EC 3-12 by mouth ity o f tablet 20:37: daily. [address] HYDROcodone Yes 1{tbl} Take 1 Un nathen -acetaminop 3-12 tablet by ity of hen 7.5-325 20:37: mouth 3 [place] mg per 07 (three) Medical tablet times Branch daily. OXYGEN-AIR Yes by Univers DELIVERY 3-12 Miscellane ity o f SYSTEMS 20:37: ous route. Tripp mrogan [address] Branch ALBUTEROL Yes Inhale. Unive rs SULFATE 3-12 ity of (PROVENTIL 20:37: [place] INHALE) [address] [place] [address] Branch pantoprazol Yes 40mg Take 40 mg Univers e 40 mg EC 3-12 by mouth ity o f tablet 20:37: daily. [address] HYDROcodone Yes 1{tbl} Take 1 Un nathen -acetaminop 3-12 tablet by ity of hen 7.5-325 20:37: mouth 3 [place] mg per 07 (three) Medical tablet times Branch daily. OXYGEN-AIR Yes by Univers DELIVERY 3-12 Miscellane ity o f SYSTEMS 20:37: ous route. Tripp morgan [address] Branch ALBUTEROL Yes Inhale. Unive rs SULFATE 3-12 ity of (PROVENTIL 20:37: [place] INHALE) [address] [place] [address] Branch pantoprazol Yes 40mg Take 40 mg Univers e 40 mg EC 3-12 by mouth ity o f tablet 20:37: daily. [address] HYDROcodone Yes 1{tbl} Take 1 Un nathen -acetaminop 3-12 tablet by ity of hen 7.5-325 20:37: mouth 3 [place] mg per 07 (three) Medical tablet times Branch daily. OXYGEN-AIR Yes by Univers DELIVERY 3-12 Miscellane ity o f SYSTEMS 20:37: ous route. Tripp morgan [address] Branch ALBUTEROL Yes Inhale. Unive rs SULFATE 3-12 ity of (PROVENTIL 20:37: [place] INHALE) [address] [place] [address] Branch pantoprazol Yes 40mg Take 40 mg Univers e 40 mg EC 3-12 by mouth ity o f tablet 20:37: daily. [address] HYDROcodone Yes 1{tbl} Take 1 Un nathen -acetaminop 3-12 tablet by ity of hen 7.5-325 20:37: mouth 3 [place] mg per 07 (three) Medical tablet times Branch daily. OXYGEN-AIR Yes by Univers DELIVERY 3-12 Miscellane ity o f SYSTEMS 20:37: ous route. Tripp morgan [address] Branch ALBUTEROL Yes Inhale. Unive rs SULFATE 3-12 ity of (PROVENTIL 20:37: [place] INHALE) [address] [place] [address] pantoprazol Yes 40mg Take 40 mg Univers e 40 mg EC 3-12 by mouth ity o f tablet 20:37: daily. [address] HYDROcodone Yes 1{tbl} Take 1 Un nathen -acetaminop 3-12 tablet by ity of hen 7.5-325 20:37: mouth 3 [place] mg per 07 (three) Medical tablet times Branch daily. OXYGEN-AIR Yes by Univers DELIVERY 3-12 Miscellane ity o f SYSTEMS 20:37: ous route. Tripp morgan [address] Branch ALBUTEROL Yes Inhale. Unive rs SULFATE 3-12 ity of (PROVENTIL 20:37: [place] INHALE) [address] [place] [address] Branch pantoprazol Yes 40mg Take 40 mg Univers e 40 mg EC 3-12 by mouth ity o f tablet 20:37: daily. [address] HYDROcodone Yes 1{tbl} Take 1 Un nathen -acetaminop 3-12 tablet by ity of hen 7.5-325 20:37: mouth 3 [place] mg per 07 (three) Medical tablet times Branch daily. OXYGEN-AIR Yes by Univers DELIVERY 3-12 Miscellane ity o f SYSTEMS 20:37: ous route. Tripp morgan [address] Branch ALBUTEROL Yes Inhale. Unive rs SULFATE 3-12 ity of (PROVENTIL 20:37: [place] INHALE[address] pantoprazol Yes 40mg Take 40 mg Univers e 40 mg EC 3-12 by mouth ity o f tablet 20:37: daily. [address] HYDROcodone Yes 1{tbl} Take 1 Un nathen -acetaminop 3-12 tablet by ity of hen 7.5-325 20:37: mouth 3 [place] mg per 07 (three) Medical tablet times Branch daily. OXYGEN-AIR Yes by Univers DELIVERY 3-12 Miscellane ity o f SYSTEMS 20:37: ous route. Tripp morgan [address] pantoprazol Yes 40mg Take 40 mg Univers e 40 mg EC 3-12 by mouth ity o f tablet 20:37: daily. [address] HYDROcodone Yes 1{tbl} Take 1 Un nathen -acetaminop 3-12 tablet by [facility]y of hen 7.5-325 20:37: mouth 3 [place] as mg per (three) Medical tablet times Branch daily. OXYGEN-AIR Yes by [facility] DELIVERY 3-12 Miscellane ity o f SYSTEMS 20:37: ous route. Tripp morgan [address] pantoprazol Yes 40mg Take 40 mg [facility] e 40 mg EC 3-12 by mouth ity o f tablet 20:37: daily. [address] HYDROcodone Yes 1{tbl} Take 1 Un [facility] -acetaminop 3-12 tablet by ity of hen 7.5-325 20:37: mouth 3 [place] as mg per (three) Medical tablet times Branch daily. OXYGEN-AIR Yes by [facility] DELIVERY 3-12 Miscellane ity o f SYSTEMS 20:37: ous route. Tripp morgan [address] pantoprazol Yes 40mg Take 40 mg [facility] e 40 mg EC 3-12 by mouth ity o f tablet 20:37: daily. [address] HYDROcodone Yes 1{tbl} Take 1 [facility] -acetaminop 3-12 tablet by ity of hen 7.5-325 20:37: mouth 3 [place] mg per 07 (three) Medical tablet times Branch daily. OXYGEN-AIR 2021-0 Yes by [facility] DELIVERY 3-12 Miscellane ity o f SYSTEMS 20:37: ous route. Tripp morgan [address] pantoprazol Yes 40mg Take 40 mg [facility] e 40 mg EC 3-12 by mouth ity o f tablet 20:37: daily. [address] HYDROcodone Yes 1{tbl} Take 1 [facility] -acetaminop 3-12 tablet by [facility]y of hen 7.5-325 20:37: mouth 3 [place] mg per 07 (three) Medical tablet times Branch daily. OXYGEN-AIR Yes by [facility] DELIVERY 3-12 Miscellane ity o f SYSTEMS 20:37: ous route. Tripp morgan [address] pantoprazol Yes 40mg Take 40 mg [facility] e 40 mg EC 3-12 by mouth ity o f tablet 20:37: daily. [address] HYDROcodone Yes 1{tbl} Take 1 [facility] -acetaminop 3-12 tablet by [facility]y of hen 7.5-325 20:37: mouth 3 [place] mg per 07 (three) Medical tablet times Branch daily. OXYGEN-AIR 0 Yes by [facility] DELIVERY 3-12 Miscellane ity o f SYSTEMS 20:37: ous route. Tripp morgan [address] pantoprazol Yes 40mg Take 40 mg [facility] e 40 mg EC 3-12 by mouth ity o f tablet 20:37: daily. [address] HYDROcodone Yes 1{tbl} Take 1 [facility] -acetaminop 3-12 tablet by [facility]y of hen 7.5-325 20:37: mouth 3 [place] mg per 07 (three) Medical tablet times Branch daily. OXYGEN-AIR 0 Yes by [facility] DELIVERY 3-12 Miscellane ity o f SYSTEMS 20:37: ous route. Tripp morgan [address] pantoprazol Yes 40mg Take 40 mg [facility] e 40 mg EC 3-12 by mouth ity o f tablet 20:37: daily. [address] HYDROcodone Yes 1{tbl} Take 1 [facility] -acetaminop 3-12 tablet by [facility] of hen 7.5-325 20:37: mouth 3 [place] mg per 07 (three) Medical tablet times Branch daily. OXYGEN-AIR 0 Yes by [facility] DELIVERY 3-12 Miscellane ity o f SYSTEMS 20:37: ous route. Tripp morgan [address] Branch pantoprazol Yes 40mg Take 40 mg [facility] e 40 mg EC 3-12 by mouth ity o f tablet 20:37: daily. [address] HYDROcodone 2020- Yes 1{tbl} Take 1 [facility] -acetaminop 3-12 tablet by [facility]y of hen 7.5-325 20:37: mouth 3 [place] [facility] mg per 07 (three) Medical tablet times Branch daily. OXYGEN-AIR 0 Yes by [facility] DELIVERY 3-12 Miscellane ity o f SYSTEMS 20:37: ous route. Tripp morgan [address] pantoprazol Yes 40mg Take 40 mg [facility] e 40 mg EC 3-12 by mouth ity o f tablet 20:37: daily. [address] HYDROcodone Yes 1{tbl} Take 1 [facility] -acetaminop 3-12 tablet by [facility]y of hen 7.5-325 20:37: mouth 3 [place] mg per 07 (three) Medical tablet times Branch daily. OXYGEN-AIR 0 Yes by [facility] DELIVERY 3-12 Miscellane ity o f SYSTEMS 20:37: ous route. Tripp morgan [address] pantoprazol Yes 40mg Take 40 mg [facility] e 40 mg EC 3-12 by mouth ity o f tablet 20:37: daily. [address] HYDROcodone Yes 1{tbl} Take 1 [facility] -acetaminop 3-12 tablet by [facility]y of hen 7.5-325 20:37: mouth 3 [place] mg per 07 (three) Medical tablet times Branch daily. OXYGEN-AIR 0 Yes by [facility] DELIVERY 3-12 Miscellane ity o f SYSTEMS 20:37: ous route. Tripp morgan [address] pantoprazol Yes 40mg Take 40 mg [facility] e 40 mg EC 3-12 by mouth ity o f tablet 20:37: daily. [address] HYDROcodone 2020-0 Yes 1{tbl} Take 1 [facility] -acetaminop 3-12 tablet by [facility]y of hen 7.5-325 20:37: mouth 3 [place] mg per 07 (three) Medical tablet times Branch daily. OXYGEN-AIR Yes by [facility] DELIVERY 3-12 Miscellane ity o f SYSTEMS 20:37: ous route. Tripp morgan [address] pantoprazol Yes 40mg Take 40 mg [facility] e 40 mg EC 3-12 by mouth ity o f tablet 20:37: daily. [address] HYDROcodone Yes 1{tbl} Take 1 [facility] -acetaminop 3-12 tablet by [facility]y of hen 7.5-325 20:37: mouth 3 [place] mg per 07 (three) Medical tablet times Branch daily. OXYGEN-AIR Yes by [facility] DELIVERY 3-12 Miscellane ity o f SYSTEMS 20:37: ous route. Tripp morgan [address] pantoprazol Yes 40mg Take 40 mg [facility] e 40 mg EC 3-12 by mouth ity o f tablet 20:37: daily. [address] HYDROcodone Yes 1{tbl} Take 1 [facility] -acetaminop 3-12 tablet by [facility] of hen 7.5-325 20:37: mouth 3 [place] mg per 07 (three) Medical tablet times Branch daily. OXYGEN-AIR Yes by [facility] DELIVERY 3-12 Miscellane ity o f SYSTEMS 20:37: ous route. Tripp morgan [address] pantoprazol Yes 40mg Take 40 mg [facility] e 40 mg EC 3-12 by mouth ity o f tablet 20:37: daily. [address] HYDROcodone Yes 1{tbl} Take 1 [facility] -acetaminop 3-12 tablet by [facility]y of hen 7.5-325 20:37: mouth 3 [place] mg per 07 (three) Medical tablet times Branch daily. OXYGEN-AIR Yes by [facility] DELIVERY 3-12 Miscellane ity o f SYSTEMS 20:37: ous route. Tripp morgan [address] pantoprazol Yes 40mg Take 40 mg [facility] e 40 mg EC 3-12 by mouth ity o f tablet 20:37: daily. [address] HYDROcodone Yes 1{tbl} Take 1 [facility] -acetaminop 3-12 tablet by [facility]y of hen 7.5-325 20:37: mouth 3 [place] mg per 07 (three) Medical tablet times Branch daily. OXYGEN-AIR 0 Yes by [facility] DELIVERY 3-12 Miscellane ity o f SYSTEMS 20:37: ous route. Tripp morgan [address] pantoprazol Yes 40mg Take 40 mg [facility] e 40 mg EC 3-12 by mouth ity o f tablet 20:37: daily. [address] HYDROcodone Yes 1{tbl} Take 1 [facility] -acetaminop 3-12 tablet by ity of hen 7.5-325 20:37: mouth 3 [place] mg per 07 (three) Medical tablet times Branch daily. OXYGEN-AIR Yes by [facility] DELIVERY 3-12 Miscellane ity o f SYSTEMS 20:37: ous route. Tripp morgan [address] pantoprazol Yes 40mg Take 40 mg [facility] e 40 mg EC 3-12 by mouth ity o f tablet 20:37: daily. [address] HYDROcodone Yes 1{tbl} Take 1 [facility] -acetaminop 3-12 tablet by [facility]y of hen 7.5-325 20:37: mouth 3 [place] mg per 07 (three) Medical tablet times Branch daily. OXYGEN-AIR Yes by [facility] DELIVERY 3-12 Miscellane ity o f SYSTEMS 20:37: ous route. Tripp morgan [address] pantoprazol Yes 40mg Take 40 mg [facility] e 40 mg EC 3-12 by mouth ity o f tablet 20:37: daily. [address] HYDROcodone Yes 1{tbl} Take 1 [facility] -acetaminop 3-12 tablet by ity of hen 7.5-325 20:37: mouth 3 [place] as mg per 07 (three) Medical tablet times Branch daily. OXYGEN-AIR Yes by [facility] DELIVERY 3-12 Miscellane ity o f SYSTEMS 20:37: ous route. Tripp morgan [address] FLUTICASONE 2020-0 2020- No Inhale. Un nathen /VILANTEROL 11-0912 ity of (BREO 20:37: 00:00 [place] ELLIPTA 01 :00 Medical INHALE) Branch FLUTICASONE 2020-0 2020- No Inhale. Un [facility]hen /VILANTEROL 11-0912 ity of (BREO 20:37: 00:00 [place] ELLIPTA 01 :00 Medical INHALE) Branch FLUTICASONE 2020-0 2020- No Inhale. Un [facility] /VILANTEROL 11-09 ity of (BREO 20:37: 00:00 [place] ELLIPTA 01 :00 Medical INHALE) Branch aspirin 81 2020-0 2020- No 81mg Take 81 mg [facility] mg EC 11-0912 by mouth. ity of tablet 20:34: 00:00 [place] 54 :00 [facility] Branch aspirin 81 2020-0 2020- No 81mg Take 81 mg [facility] mg EC 11-0912 by mouth. ity of tablet 20:34: 00:00 [place] 54 :00 [facility] Branch aspirin 81 2020-0 2020- No 81mg Take 81 mg Univers mg EC 11-0912 by mouth. ity of tablet 20:34: 00:00 [place] 54 :00 [facility] Branch pantoprazol 0 Yes 40mg Take 40 mg Univers e 40 mg EC 3-12 by mouth ity o f tablet 14:37: daily. [address] Branch HYDROcodone 2020- Yes 1{tbl} Take 1 [facility] -acetaminop 3-12 tablet by ity of hen 7.5-325 14:37: mouth 3 [place] as mg per 07 (three) Medical tablet times Branch daily. OXYGEN-AIR 2020-0 Yes by [facility] DELIVERY 3-12 Miscellane ity o f SYSTEMS 14:37: [place] [address] [facility] HYDROcodone Yes 1{tbl} Take 1 Un nathen -acetaminop 3-12 tablet by ity of hen 7.5-325 14:37: mouth 3 [place] as mg per 07 (three) Medical tablet times Branch daily. OXYGEN-AIR 2020-0 Yes by [facility] DELIVERY 3-12 Miscellane ity o f SYSTEMS 14:37: ous route. Tripp morgan [place] [address] Medical Branch HYDROcodone Yes 1{tbl} Take 1 Un nat[facility] -acetaminop 3-12 tablet by ity of hen 7.5-325 14:37: mouth 3 [place] as mg per 07 (three) Medical tablet times Branch daily. OXYGEN-AIR Yes by [facility] DELIVERY 3-12 Miscellane ity o f SYSTEMS 14:37: ous route. Tripp morgan [place] [address] Medical Branch HYDROcodone Yes 1{tbl} Take 1 [facility] -acetaminop 3-12 tablet by ity of hen 7.5-325 14:37: mouth 3 [place] as mg per 07 (three) Medical tablet times Branch daily. OXYGEN-AIR Yes by [facility] DELIVERY 3-12 Miscellane ity o f SYSTEMS 14:37: ous route. Tripp morgan [place] [address] Medical Branch HYDROcodone Yes 1{tbl} Take 1 [facility] -acetaminop 3-12 tablet by ity of hen 7.5-325 14:37: mouth 3 [place] as mg per 07 (three) Medical tablet times Branch daily. OXYGEN-AIR Yes by [facility] DELIVERY 3-12 Miscellane ity o f SYSTEMS 14:37: ous route. Tripp morgan [place] [address] Medical Branch HYDROcodone Yes 1{tbl} Take 1 [facility] -acetaminop 3-12 tablet by ity of hen 7.5-325 14:37: mouth 3 [place] as mg per 07 (three) Medical tablet times Branch daily. OXYGEN-AIR Yes by [facility] DELIVERY 3-12 Miscellane ity o f SYSTEMS 14:37: ous route. Tripp morgan [place] [address] Medical Branch pantoprazol Yes 40mg Take 40 mg [facility] e 40 mg EC 3-12 by mouth ity o f tablet 14:37: daily. [address] Branch HYDROcodone Yes 1{tbl} Take 1 [facility] -acetaminop 3-12 tablet by ity of hen 7.5-325 14:37: mouth 3 [place] as mg per 07 (three) Medical tablet times Branch daily. OXYGEN-AIR Yes by [facility] DELIVERY 3-12 Miscellane ity o f SYSTEMS 14:37: ous route. Tripp morgan [place] [address] Medical Branch pantoprazol Yes 40mg Take 40 mg [facility] e 40 mg EC 3-12 by mouth ity o f tablet 14:37: daily. [place] Medical Branch HYDROcodone Yes 1{tbl} Take 1 Un nat[facility] -acetaminop 3-12 tablet by ity of hen 7.5-325 14:37: mouth 3 [place] as mg per (three) Medical tablet times Branch daily. OXYGEN-AIR Yes by [facility] DELIVERY 3-12 Miscellane ity o f SYSTEMS 14:37: ous route. Tripp morgan [facility] [place] [place] Medical Branch LORazepam Yes [id number] 1mg Take 1 [facility] mg tablet 3-12 tablet by ity o f 00:00: mouth (three) Medical times Branch daily as needed for Anxiety or Agitation. LORazepam Yes [id number] 1mg Take 1 [facility] mg tablet 3-12 tablet by ity o f 00:00: mouth (three) Medical times Branch daily as needed for Anxiety or Agitation. LORazepam Yes [id number] 1mg Take 1 [facility] mg tablet 3-12 tablet by ity o f 00:00: mouth (three) Medical times Branch daily as needed for Anxiety or Agitation. LORazepam Yes [id number] 1mg Take 1 [facility] mg tablet 3-12 tablet by ity o f 00:00: mouth 3 (three) Medical times Branch daily as needed for Anxiety or Agitation. LORazepam Yes [id number] 1mg Take 1 [facility] mg tablet 3-12 tablet by ity o f 00:00: mouth 3 (three) Medical times Branch daily as needed for Anxiety or Agitation. LORazepam Yes [id number] 1mg Take 1 [facility] mg tablet 3-12 tablet by ity o f 00:00: mouth 3 (three) Medical times Branch daily as needed for Anxiety or Agitation. LORazepam Yes [id number] 1mg Take 1 [facility] mg tablet 3-12 tablet by ity o f 00:00: mouth 3 (three) Medical times Branch daily as needed for Anxiety or Agitation. LORazepam 1 2021-0 Yes [id number] 1mg Take 1 [facility] mg tablet 3-12 tablet by ity o f 00:00: mouth 3 (three) Medical times Branch daily as needed for Anxiety or Agitation. LORazepam 1 2020-0 Yes [id number] 1mg Take 1 [facility] mg tablet 3-12 tablet by ity o f 00:00: mouth 3 (three) Medical times Branch daily as needed for Anxiety or Agitation. LORazepam 1 2020-0 Yes [id number] 1mg Take 1 [facility] mg tablet 3-12 tablet by ity o f 00:00: mouth 3 (three) Medical times Branch daily as needed for Anxiety or Agitation. LORazepam 1 2020- Yes [id number] 1mg Take 1 [facility] mg tablet 3-12 tablet by ity o f 00:00: mouth (three) Medical times Branch daily as needed for Anxiety or Agitation. LORazepam Yes [id number] 1mg Take 1 [facility] mg tablet 3-12 tablet by ity o f 00:00: mouth (three) Medical times Branch daily as needed for Anxiety or Agitation. LORazepam Yes [id number] 1mg Take 1 [facility] mg tablet 3-12 tablet by ity o f 00:00: mouth (three) Medical times Branch daily as needed for Anxiety or Agitation. LORazepam 2020-0 Yes [id number] 1mg Take 1 [facility] mg tablet 3-12 tablet by ity o f 00:00: mouth (three) Medical times Branch daily as needed for Anxiety or Agitation. LORazepam 0 Yes [id number] 1mg Take 1 [facility] mg tablet 3-12 tablet by ity o f 00:00: mouth (three) Medical times Branch daily as needed for Anxiety or Agitation. LORazepam 1 2020-0 Yes [id number] 1mg Take 1 [facility] mg tablet 3-12 tablet by ity o f 00:00: mouth 3 (three) Medical times Branch daily as needed for Anxiety or Agitation. LORazepam 1 2020-0 Yes [id number] 1mg Take 1 [facility] mg tablet 3-12 tablet by ity o f 00:00: mouth 3 (three) Medical times Branch daily as needed for Anxiety or Agitation. LORazepam 1 2020-0 Yes [id number] 1mg Take 1 [facility] mg tablet 3-12 tablet by ity o f 00:00: mouth 3 (three) Medical times Branch daily as needed for Anxiety or Agitation. LORazepam 1 2020-0 Yes [id number] 1mg Take 1 [facility] mg tablet 3-12 tablet by ity o f 00:00: mouth 3 (three) Medical times Branch daily as needed for Anxiety or Agitation. LORazepam 1 2020-0 Yes [id number] 1mg Take 1 [facility] mg tablet 3-12 tablet by ity o f 00:00: mouth 3 (three) Medical times Branch daily as needed for Anxiety or Agitation. LORazepam 1 2020-0 Yes [id number] 1mg Take 1 [facility] mg tablet 3-12 tablet by ity o f 00:00: mouth (three) Medical times Branch daily as needed for Anxiety or Agitation. LORazepam 1 2020- Yes [id number] 1mg Take 1 [facility] mg tablet 3-12 tablet by ity o f 00:00: mouth (three) Medical times Branch daily as needed for Anxiety or Agitation. LORazepam Yes [id number] 1mg Take 1 [facility] mg tablet 3-12 tablet by ity o f 00:00: mouth (three) Medical times Branch daily as needed for Anxiety or Agitation. LORazepam 1 2020-0 Yes [id number] 1mg Take 1 [facility] mg tablet 3-12 tablet by ity o f 00:00: mouth (three) Medical times Branch daily as needed for Anxiety or Agitation. LORazepam 1 2020-0 Yes [id number] 1mg Take 1 [facility] mg tablet 3-12 tablet by ity o f 00:00: mouth (three) Medical times Branch daily as needed for Anxiety or Agitation. LORazepam 1 2020-0 Yes [id number] 1mg Take 1 [facility] mg tablet 3-12 tablet by ity o f 00:00: mouth 3 (three) Medical times Branch daily as needed for Anxiety or Agitation. LORazepam 1 2020-0 Yes [id number] 1mg Take 1 [facility] mg tablet 3-12 tablet by ity o f 00:00: mouth 3 (three) Medical times Branch daily as needed for Anxiety or Agitation. LORazepam 1 2020-0 Yes [id number] 1mg Take 1 [facility] mg tablet 3-12 tablet by ity o f 00:00: mouth 3 [place] 00 (three) Medical times Branch daily as needed for Anxiety or Agitation. LORazepam 2020-0 Yes [id number] 1mg Take 1 [facility] mg tablet 3-12 tablet by ity o f 00:00: mouth 3 00 (three) Medical times Branch daily as needed for Anxiety or Agitation. LORazepam 2020-0 Yes [id number] 1mg Take 1 [facility] mg tablet 3-12 tablet by ity o f 00:00: mouth 3 00 (three) Medical times Branch daily as needed for Anxiety or Agitation. LORazepam 2020- Yes [id number] 1mg Take 1 [facility] mg tablet 3-12 tablet by ity o f 00:00: mouth 3 00 (three) Medical times Branch daily as needed for Anxiety or Agitation. LORazepam 2020- Yes [id number] 1mg Take 1 [facility] mg tablet 3-12 tablet by ity o f 00:00: mouth 3 00 (three) Medical times Branch daily as needed for Anxiety or Agitation. LORazepam Yes [id number] 1mg Take 1 [facility] mg tablet 3-12 tablet by ity o f 00:00: mouth 3 (three) Medical times Branch daily as needed for Anxiety or Agitation. LORazepam Yes [id number] 1mg Take 1 [facility] mg tablet 3-12 tablet by ity o f 00:00: mouth 3 00 (three) Medical times Branch daily as needed for Anxiety or Agitation. SPIRIVA Yes INHALE 2 Univer s RESPIMAT 2-16 PUFFS BY ity of 2.5 00:00: MOUTH [place] mcg/actuati 00 EVERY DAY Med ical on [facility] Branch SPIRIVA Yes INHALE 2 Univer s RESPIMAT 2-16 PUFFS BY ity of 2.5 00:00: MOUTH [place] mcg/actuati 00 EVERY DAY Med ical on [facility] Branch SPIRIVA Yes INHALE 2 Univer s RESPIMAT 2-16 PUFFS BY ity of 2.5 00:00: MOUTH [place] mcg/actuati 00 EVERY DAY Med ical on [facility] Branch SPIRIVA Yes INHALE 2 Univer s RESPIMAT 2-16 PUFFS BY ity of 2.5 00:00: MOUTH [place] mcg/actuati 00 EVERY DAY Med ical on [facility] Branch SPIRIVA Yes INHALE 2 Univer s RESPIMAT 2-16 PUFFS BY ity of 2.5 00:00: MOUTH [place] mcg/actuati 00 EVERY DAY Med ical on [facility] Branch SPIRIVA Yes INHALE 2 Univer s RESPIMAT 2-16 PUFFS BY ity of 2.5 00:00: MOUTH [place] mcg/actuati 00 EVERY DAY [facility] RESPIMAT 2-16 PUFFS BY ity of 2.5 00:00: MOUTH [place] mcg/actuati 00 EVERY DAY Med ical on [facility]ALE 2 Univer s RESPIMAT 2-16 PUFFS BY ity of 2.5 00:00: MOUTH [place] mcg/actuati 00 EVERY DAY Med ical on [facility]ALE 2 Univer s RESPIMAT 2-16 PUFFS BY ity of 2.5 00:00: MOUTH [place] mcg/actuati 00 EVERY DAY Med ical on [facility]ALE 2 Univer s RESPIMAT 2-16 PUFFS BY ity of 2.5 00:00: MOUTH [place] mcg/actuati 00 EVERY DAY Med ical on [facility] 2 Univer s RESPIMAT 2-16 PUFFS BY ity of 2.5 00:00: MOUTH [place] mcg/actuati 00 EVERY DAY Med ical on [facility]ALE 2 Univer s RESPIMAT 2-16 PUFFS BY ity of 2.5 00:00: MOUTH [place] mcg/actuati 00 EVERY DAY Med ical on [facility]ALE 2 Univer s RESPIMAT 2-16 PUFFS BY ity of 2.5 00:00: MOUTH [place] mcg/actuati 00 EVERY DAY Med ical on Mist Branch SPIRIVA Yes INHALE 2 Univer s RESPIMAT 2-16 PUFFS BY ity of 2.5 00:00: MOUTH [place] mcg/actuati 00 EVERY DAY Med ical on Mist Branch SPIRIVA Yes INHALE 2 Univer s RESPIMAT 2-16 PUFFS BY ity of 2.5 00:00: MOUTH [place] mcg/actuati 00 EVERY DAY Med ical on [facility] Branch SPIRIVA Yes INHALE 2 Univer s RESPIMAT 2-16 PUFFS BY ity of 2.5 00:00: MOUTH [place] mcg/actuati 00 EVERY DAY Med ical on [facility] Branch SPIRIVA Yes INHALE 2 Univer s RESPIMAT 2-16 PUFFS BY ity of 2.5 00:00: MOUTH [place] mcg/actuati 00 EVERY DAY Med ical on [facility] Branch SPIRIVA Yes INHALE 2 Univer s RESPIMAT 2-16 PUFFS BY ity of 2.5 00:00: MOUTH [place] mcg/actuati 00 EVERY DAY Med ical on [facility] Branch SPIRIVA Yes INHALE 2 Univer s RESPIMAT 2-16 PUFFS BY ity of 2.5 00:00: MOUTH [place] mcg/actuati 00 EVERY DAY Med ical on [facility] Branch SPIRIVA Yes INHALE 2 Univer s RESPIMAT 2-16 PUFFS BY ity of 2.5 00:00: MOUTH [place] mcg/actuati 00 EVERY DAY Med ical on [facility] Branch SPIRIVA Yes INHALE 2 Univer s RESPIMAT 2-16 PUFFS BY ity of 2.5 00:00: MOUTH [place] mcg/actuati 00 EVERY DAY Med ical on [facility] Branch SPIRIVA Yes INHALE 2 Univer s RESPIMAT 2-16 PUFFS BY ity of 2.5 00:00: MOUTH [place] mcg/actuati 00 EVERY DAY Med ical on [facility] Branch SPIRIVA Yes INHALE 2 Univer s RESPIMAT 2-16 PUFFS BY ity of 2.5 00:00: MOUTH [place] mcg/actuati 00 EVERY DAY Med ical on Mist Branch SPIRIVA Yes INHALE 2 Univer s RESPIMAT 2-16 PUFFS BY ity of 2.5 00:00: MOUTH [place] mcg/actuati 00 EVERY DAY Med ical on [facility] Branch SPIRIVA Yes INHALE 2 Univer s RESPIMAT 2-16 PUFFS BY ity of 2.5 00:00: MOUTH [place] mcg/actuati 00 EVERY DAY Med ical on [facility] Branch SPIRIVA Yes INHALE 2 Univer s RESPIMAT 2-16 PUFFS BY ity of 2.5 00:00: MOUTH [place] mcg/actuati 00 EVERY DAY Med ical on [facility] Branch SPIRIVA 2020-0 Yes INHALE 2 Univer s RESPIMAT 2-16 PUFFS BY ity of 2.5 00:00: MOUTH [place] mcg/actuati 00 EVERY DAY Med ical on [facility] Branch SPIRIVA 0 Yes INHALE 2 Univer s RESPIMAT 2-16 PUFFS BY ity of 2.5 00:00: MOUTH [place] mcg/actuati 00 EVERY DAY Med ical on [facility] Branch amLODIPine 2020-0 Yes [id number] 5mg Take 1 Un nathen 5 mg tablet 1-19 tablet by ity of 00:00: mouth [place] 00 daily. Medical Branch amLODIPine 2020-0 Yes [id number] 5mg Take 1 Un [facility]hen 5 mg tablet 1-19 tablet by ity of 00:00: mouth [place] 00 daily. Medical Branch amLODIPine 2020-0 Yes [id number] 5mg Take 1 Un [facility]hen 5 mg tablet 1-19 tablet by ity of 00:00: mouth [place] 00 daily. Medical Branch amLODIPine 2020-0 Yes [id number] 5mg Take 1 Un [facility] 5 mg tablet 1-19 tablet by ity of 00:00: mouth [place] 00 daily. Medical Branch amLODIPine 2020-0 Yes [id number] 5mg Take 1 Un [facility] 5 mg tablet 1-19 tablet by ity of 00:00: mouth [place] 00 daily. Medical Branch amLODIPine 2020-0 Yes [id number] 5mg Take 1 [facility] 5 mg tablet 1-19 tablet by ity of 00:00: mouth [place] 00 daily. Medical Branch amLODIPine 2020-0 Yes [id number] 5mg Take 1 [facility] 5 mg tablet 1-19 tablet by ity of 00:00: mouth [place] 00 daily. Medical Branch amLODIPine 2020-0 Yes [id number] 5mg Take 1 Un [facility] 5 mg tablet 1-19 tablet by ity of 00:00: mouth [place] 00 daily. Medical Branch amLODIPine 2020-0 Yes [id number] 5mg Take 1 [facility] 5 mg tablet 1-19 tablet by ity of 00:00: mouth [place] 00 daily. Medical Branch amLODIPine 2020-0 Yes [id number] 5mg Take 1 Un nathen 5 mg tablet 1-19 tablet by ity of 00:00: mouth [place] 00 daily. Medical Branch amLODIPine 2020-0 Yes [id number] 5mg Take 1 Un [facility]hen 5 mg tablet 1-19 tablet by ity of 00:00: mouth [place] 00 daily. Medical Branch amLODIPine 2020-0 Yes [id number] 5mg Take 1 [facility] 5 mg tablet 1-19 tablet by ity of 00:00: mouth [place] 00 daily. Medical Branch amLODIPine 2020-0 Yes [id number] 5mg Take 1 [facility] 5 mg tablet 1-19 tablet by ity of 00:00: mouth [place] 00 daily. Medical Branch amLODIPine 2020-0 Yes [id number] 5mg Take 1 [facility] 5 mg tablet 1-19 tablet by ity of 00:00: mouth [place] 00 daily. Medical Branch amLODIPine 2020-0 Yes [id number] 5mg Take 1 [facility] 5 mg tablet 1-19 tablet by ity of 00:00: mouth [place] 00 daily. Medical Branch amLODIPine 2020-0 Yes [id number] 5mg Take 1 [facility] 5 mg tablet 1-19 tablet by ity of 00:00: mouth [place] 00 daily. Medical Branch amLODIPine 2020-0 Yes [id number] 5mg Take 1 [facility] 5 mg tablet 1-19 tablet by ity of 00:00: mouth [place] 00 daily. Medical Branch amLODIPine 2020-0 Yes [id number] 5mg Take 1 [facility] 5 mg tablet 1-19 tablet by ity of 00:00: mouth [place] 00 daily. Medical Branch amLODIPine 2020-0 Yes [id number] 5mg Take 1 [facility] 5 mg tablet 1-19 tablet by ity of 00:00: mouth [place] 00 daily. Medical Branch amLODIPine 2020-0 Yes [id number] 5mg Take 1 [facility] 5 mg tablet 1-19 tablet by ity of 00:00: mouth [place] 00 daily. Medical Branch amLODIPine 2020-0 Yes [id number] 5mg Take 1 [facility] 5 mg tablet 1-19 tablet by ity of 00:00: mouth [place] 00 daily. Medical Branch amLODIPine 1-0 Yes [id number] 5mg Take 1 [facility] 5 mg tablet 1-19 tablet by ity of 00:00: mouth [place] 00 daily. Medical Branch amLODIPine 2020-0 Yes [id number] 5mg Take 1 [facility] 5 mg tablet 1-19 tablet by ity of 00:00: mouth [place] 00 daily. Medical Branch amLODIPine 2020-0 Yes [id number] 5mg Take 1 [facility] 5 mg tablet 1-19 tablet by ity of 00:00: mouth [place] 00 daily. Medical Branch amLODIPine 2020-0 Yes [id number] 5mg Take 1 [facility] 5 mg tablet 1-19 tablet by ity of 00:00: mouth [place] 00 daily. Medical Branch amLODIPine 2020-0 Yes [id number] 5mg Take 1 [facility] 5 mg tablet 1-19 tablet by ity of 00:00: mouth [place] 00 daily. Medical Branch amLODIPine 2020-0 Yes [id number] 5mg Take 1 [facility] 5 mg tablet 1-19 tablet by ity of 00:00: mouth [place] 00 daily. Medical Branch amLODIPine 2020-0 Yes [id number] 5mg Take 1 [facility] 5 mg tablet 1-19 tablet by ity of 00:00: mouth [place] 00 daily. Medical Branch amLODIPine 2020-0 Yes [id number] 5mg Take 1 [facility] 5 mg tablet 1-19 tablet by ity of 00:00: mouth [place] 00 daily. Medical Branch amLODIPine 2020-0 Yes [id number] 5mg Take 1 [facility] 5 mg tablet 1-19 tablet by ity of 00:00: mouth [place] 00 daily. Medical Branch amLODIPine 2020-0 Yes [id number] 5mg Take 1 [facility] 5 mg tablet 1-19 tablet by ity of 00:00: mouth [place] 00 daily. Medical Branch amLODIPine 2020-0 Yes [id number] 5mg Take 1 [facility] 5 mg tablet 1-19 tablet by ity of 00:00: mouth [place] 00 daily. [facility] amLODIPine 2020-0 Yes [id number] 5mg Take 1 [facility] 5 mg tablet 1-19 tablet by ity of 00:00: mouth [place] 00 daily. [facility] amLODIPine 2020-0 Yes [id number] 5mg Take 1 [facility] 5 mg tablet 1-19 tablet by ity of 00:00: mouth [place] 00 daily. [facility] amLODIPine 1-0 Yes [id number] 5mg Take 1 [facility] 5 mg tablet 1-19 tablet by ity of 00:00: mouth [place] 00 daily. [facility] amLODIPine 2021-0 Yes [id number] 5mg Take 1 [facility] 5 mg tablet 1-19 tablet by ity of 00:00: mouth 00 daily. [facility] cefUROXime 2019-08 Yes [id number] 500mg Take 1 [facility] 500 mg 2-16 tablet by it[facility] of tablet 00:00: mouth (two) Medical times Branch daily. LORazepam 1 2019-08 Yes [id number] 1mg Take 1 [facility] mg tablet 2-16 tablet by ity o f 00:00: mouth (three) Medical times Branch daily as needed for Anxiety or Agitation. cefUROXime 2019-08 Yes [id number] 500mg Take 1 [facility] 500 mg 2-16 tablet by ity of tablet 00:00: mouth (two) Medical times Branch daily. LORazepam 2019-08 Yes [id number] 1mg Take 1 [facility] mg tablet 2-16 tablet by ity o f 00:00: mouth (three) Medical times Branch daily as needed for Anxiety or Agitation. cefUROXime 2019-08 Yes [id number] 500mg Take 1 [facility] 500 mg 2-16 tablet by ity of tablet 00:00: mouth (two) Medical times Branch daily. LORazepam 2019-08 Yes [id number] 1mg Take 1 [facility] mg tablet 2-16 tablet by ity o f 00:00: mouth (three) Medical times Branch daily as needed for Anxiety or Agitation. cefUROXime 2019-08 Yes [id number] 500mg Take 1 [facility] 500 mg 2-16 tablet by ity of tablet 00:00: mouth (two) Medical times Branch daily. LORazepam 1 2019-08 Yes [id number] 1mg Take 1 [facility] mg tablet 2-16 tablet by ity o f 00:00: mouth (three) Medical times Branch daily as needed for Anxiety or Agitation. cefUROXime 2019-08 Yes [id number] 500mg Take 1 [facility] 500 mg 2-16 tablet by ity of tablet 00:00: mouth (two) Medical times Branch daily. LORazepam 1 2019-08 Yes [id number] 1mg Take 1 [facility] mg tablet 2-16 tablet by ity o f 00:00: mouth (three) Medical times Branch daily as needed for Anxiety or Agitation. cefUROXime 2019-08 Yes [id number] 500mg Take 1 [facility] 500 mg 2-16 tablet by ity of tablet 00:00: mouth 2 [place] 00 (two) Medical times Branch daily. LORazepam 2019-08 Yes [id number] 1mg Take 1 [facility] mg tablet 2-16 tablet by ity o f 00:00: mouth 3 [place] 00 (three) Medical times Branch daily as needed for Anxiety or Agitation. cefUROXime 2019-08- No [id number] 500mg Take 1 [facility] 500 mg 2-16 03-12 tablet by ity of tablet 00:00: 00:00 mouth 2 [place] 00 :00 (two) Medical times Branch daily. LORazepam 2019-08- No [id number] 1mg Take 1 [facility] mg tablet 2-16 03-12 tablet by ity of 00:00: 00:00 mouth 3 [place] 00 :00 (three) Medical times Branch daily as needed for Anxiety or Agitation. cefUROXime 2019-08- No [id number] 500mg Take 1 [facility] 500 mg 2-16 03-12 tablet by ity of tablet 00:00: 00:00 mouth 2 [place] 00 :00 (two) Medical times Branch daily. LORazepam 2019-08- No [id number] 1mg Take 1 [facility] mg tablet 2-16 03-12 tablet by ity of 00:00: 00:00 mouth 3 [place] 00 :00 (three) Medical times Branch daily as needed for Anxiety or Agitation. cefUROXime 2019-08- No [id number] 500mg Take 1 [facility] 500 mg 2-16 03-12 tablet by ity of tablet 00:00: 00:00 mouth 2 [place] 00 :00 (two) Medical times Branch daily. LORazepam 2019-08- No [id number] 1mg Take 1 [facility] mg tablet 2-16 03-12 tablet by ity of 00:00: 00:00 mouth 3 [place] 00 :00 (three) Medical times Branch daily as needed for Anxiety or Agitation. OXYGEN-AIR 2019-08 Yes by [facility] DELIVERY 0-21 Miscellane ity o f SYSTEMS 15:50: ous route. [address] OXYGEN-AIR 2019-08 Yes by [facility] DELIVERY 0-21 Miscellane ity o f SYSTEMS 15:50: ous route. [address] Branch OXYGEN-AIR 2019-08 Yes by [facility] DELIVERY 0-21 Miscellane ity o f SYSTEMS 15:50: ous route. [place] [address] Medical Branch OXYGEN-AIR 2020- Yes by [facility] DELIVERY 0-21 Miscellane ity o f SYSTEMS 15:50: ous route. [place] [address] Medical Branch OXYGEN-AIR 2020- Yes by [facility] DELIVERY 0-21 Miscellane ity o f SYSTEMS 15:50: ous route. [place] [address] Medical Branch OXYGEN-AIR 2019- Yes by [facility] DELIVERY 0-21 Miscellane ity o f SYSTEMS 15:50: ous route. [place] [address] Medical Branch OXYGEN-AIR 2019- Yes by [facility] DELIVERY 0-21 Miscellane ity o f SYSTEMS 15:50: ous route. [place] [address] Branch OXYGEN-AIR 2019- Yes by [facility] DELIVERY 0-21 Miscellane ity o f SYSTEMS 15:50: ous route. [place] [address] Medical Branch OXYGEN-AIR 2019- Yes by [facility] DELIVERY 0-21 Miscellane ity o f SYSTEMS 15:50: ous route. [place] [address] Medical Branch OXYGEN-AIR 2019- Yes by [facility] DELIVERY 0-21 Miscellane ity o f SYSTEMS 15:50: ous route. [place] [address] Branch DICYCLOMINE 2019-08 Yes Take by [facility]hen HCL 0-21 mouth. ity of (DICYCLOMIN 15:50: [place] E ORAL) [address] [place] [address] FLUTICASONE 2019-08 Yes Inhale. Uni vers /VILANTEROL 0-21 ity of (BREO 15:50: [place] ELLIPTA Medical INHALE) Branch ALBUTEROL 2019-08 Yes Inhale. Unive rs SULFATE 0-21 ity of (PROVENTIL 15:50: [place] INHALE) Medical Branch IPRATROPIUM 2019-08 Yes Inhale. Uni vers BROMIDE 0-21 ity of INHALE 15:50: [address] aspirin 81 2019- Yes 81mg Take 81 mg U nivers mg EC 0-21 by mouth. ity of tablet 15:50: [address] Branch docusate 2019-08 Yes 200mg Take 200 Univ ers 100 mg 0-21 mg by ity of capsule 15:50: mouth. [address] Branch pantoprazol 2019-08 Yes 40mg Take 40 mg [facility] e 40 mg EC 0-21 by mouth ity o f tablet 15:50: daily. [address] HYDROcodone 2019-08 Yes 1{tbl} Take 1 [facility] -acetaminop 0-21 tablet by ity of hen 7.5-325 15:50: mouth 3 [place] mg per 07 (three) Medical tablet times Branch daily. DICYCLOMINE 2019-08 Yes Take by [facility] HCL 0-21 mouth. ity of (DICYCLOMIN 15:50: [place] E ORAL) [address] [place] [address] Branch FLUTICASONE 2019-08 Yes Inhale. Uni vers /VILANTEROL 0-21 ity of (BREO 15:50: [place] ELLIPTA Medical INHALE) Branch ALBUTEROL 2019-08 Yes Inhale. Unive rs SULFATE 0-21 ity of (PROVENTIL 15:50: [place] INHALE) [address] [place] [address] Branch IPRATROPIUM 2019-08 Yes Inhale. Uni vers BROMIDE 0-21 ity of INHALE 15:50: [address] aspirin 81 2019-08 Yes 81mg Take 81 mg U nivers mg EC 0-21 by mouth. ity of tablet 15:50: [address] docusate 2019-08 Yes 200mg Take 200 Univ ers 100 mg 0-21 mg by ity of capsule 15:50: mouth. [address] pantoprazol 2019-08 Yes 40mg Take 40 mg [facility] e 40 mg EC 0-21 by mouth ity o f tablet 15:50: daily. [address] HYDROcodone 2019-08 Yes 1{tbl} Take 1 [facility] -acetaminop 0-21 tablet by ity of hen 7.5-325 15:50: mouth 3 [place] mg per 07 (three) Medical tablet times Branch daily. DICYCLOMINE 2019-08 Yes Take by [facility] HCL 0-21 mouth. ity of (DICYCLOMIN 15:50: [place] E ORAL) [address] [place] [address] Branch FLUTICASONE 2019-08 Yes Inhale. Uni vers /VILANTEROL 0-21 ity of (BREO 15:50: [place] ELLIPTA Medical INHALE) Branch ALBUTEROL 2019-08 Yes Inhale. Unive rs SULFATE 0-21 ity of (PROVENTIL 15:50: [place] INHALE) [address] [place] [address] Branch IPRATROPIUM 2019-08 Yes Inhale. Uni vers BROMIDE 0-21 ity of INHALE 15:50: [address] aspirin 81 2019-08 Yes 81mg Take 81 mg U nivers mg EC 0-21 by mouth. ity of tablet 15:50: [address] docusate 2019-08 Yes 200mg Take 200 Univ ers 100 mg 0-21 mg by ity of capsule 15:50: mouth. [address] pantoprazol 2019-08 Yes 40mg Take 40 mg [facility] e 40 mg EC 0-21 by mouth ity o f tablet 15:50: daily. [address] HYDROcodone 2019-08 Yes 1{tbl} Take 1 [facility] -acetaminop 0-21 tablet by ity of hen 7.5-325 15:50: mouth 3 [place] mg per (three) Medical tablet times Branch daily. DICYCLOMINE 2019-08 Yes Take by [facility] HCL 0-21 mouth. ity of (DICYCLOMIN 15:50: [place] E ORAL) [address] [place] [address] FLUTICASONE 2019-08 Yes Inhale. Uni vers /VILANTEROL 0-21 ity of (BREO 15:50: [place] ELLIPTA Medical INHALE) Branch ALBUTEROL 2019-08 Yes Inhale. Unive rs SULFATE 0-21 ity of (PROVENTIL 15:50: [place] INHALE) [address] [place] [address] Branch IPRATROPIUM 2019-08 Yes Inhale. Uni vers BROMIDE 0-21 ity of INHALE 15:50: [address] aspirin 81 2019-08 Yes 81mg Take 81 mg U nivers mg EC 0-21 by mouth. ity of tablet 15:50: [address] docusate 2019-08 Yes 200mg Take 200 [facility] ers 100 mg 0-21 mg by ity of capsule 15:50: mouth. [address] pantoprazol 2019-08 Yes 40mg Take 40 mg [facility] e 40 mg EC 0-21 by mouth ity o f tablet 15:50: daily. [address] HYDROcodone 2019-08 Yes 1{tbl} Take 1 [facility] -acetaminop 0-21 tablet by ity of hen 7.5-325 15:50: mouth 3 [place] mg per 07 (three) Medical tablet times Branch daily. DICYCLOMINE 2019-08 Yes Take by [facility] HCL 0-21 mouth. ity of (DICYCLOMIN 15:50: [place] E ORAL) Medical Branch FLUTICASONE 2019-08 Yes Inhale. Uni vers /VILANTEROL 0-21 ity of (BREO 15:50: [place] ELLIPTA Medical INHALE) Branch ALBUTEROL 2019-08 Yes Inhale. Unive rs SULFATE 0-21 ity of (PROVENTIL 15:50: [place] INHALE) [address] [place] [address] Branch IPRATROPIUM 2019-08 Yes Inhale. Uni vers BROMIDE 0-21 ity of INHALE 15:50: [address] aspirin 81 2019-08 Yes 81mg Take 81 mg U nivers mg EC 0-21 by mouth. ity of tablet 15:50: [address] docusate 2019-08 Yes 200mg Take 200 [facility] ers 100 mg 0-21 mg by ity of capsule 15:50: mouth. [address] Branch pantoprazol 2019-08 Yes 40mg Take 40 mg [facility] e 40 mg EC 0-21 by mouth ity o f tablet 15:50: daily. [address] HYDROcodone 2019-08 Yes 1{tbl} Take 1 [facility] -acetaminop 0-21 tablet by ity of hen 7.5-325 15:50: mouth 3 [place] as mg per (three) Medical tablet times Branch daily. DICYCLOMINE 2019-08 Yes Take by [facility] HCL 0-21 mouth. ity of (DICYCLOMIN 15:50: [place] E ORAL) [address] [place] [address] Branch FLUTICASONE 2019-08 Yes Inhale. Uni vers /VILANTEROL 0-21 ity of (BREO 15:50: [place] ELLIPTA Medical INHALE) Branch ALBUTEROL 2019-08 Yes Inhale. Unive rs SULFATE 0-21 ity of (PROVENTIL 15:50: [place] INHALE) [address] [place] [address] Branch IPRATROPIUM 2019-08 Yes Inhale. Uni vers BROMIDE 0-21 ity of INHALE 15:50: [address] aspirin 81 2019-08 Yes 81mg Take 81 mg U nivers mg EC 0-21 by mouth. ity of tablet 15:50: [address] docusate 2019-08 Yes 200mg Take 200 [facility] ers 100 mg 0-21 mg by ity of capsule 15:50: mouth. [address] pantoprazol 2019-08 Yes 40mg Take 40 mg [facility] e 40 mg EC 0-21 by mouth ity o f tablet 15:50: daily. [address] HYDROcodone 2019-08 Yes 1{tbl} Take 1 [facility] -acetaminop 0-21 tablet by ity of hen 7.5-325 15:50: mouth 3 [place] mg per 07 (three) Medical tablet times Branch daily. DICYCLOMINE 2019-08 Yes Take by [facility] HCL 0-21 mouth. ity of (DICYCLOMIN 15:50: [place] E ORAL) [address] [place] [address] Branch FLUTICASONE 2019-08 Yes Inhale. Uni vers /VILANTEROL 0-21 ity of (BREO 15:50: [place] ELLIPTA Medical INHALE) Branch ALBUTEROL 2019-08 Yes Inhale. Unive rs SULFATE 0-21 ity of (PROVENTIL 15:50: [place] INHALE) [address] [place] [address] Branch IPRATROPIUM 2019-08 Yes Inhale. Uni vers BROMIDE 0-21 ity of INHALE 15:50: [address] aspirin 81 2019-08 Yes 81mg Take 81 mg U nivers mg EC 0-21 by mouth. ity of tablet 15:50: [address] docusate 2019-08 Yes 200mg Take 200 [facility] ers 100 mg 0-21 mg by ity of capsule 15:50: mouth. [address] pantoprazol 2019-08 Yes 40mg Take 40 mg [facility] e 40 mg EC 0-21 by mouth ity o f tablet 15:50: daily. [address] HYDROcodone 2019-08 Yes 1{tbl} Take 1 [facility] -acetaminop 0-21 tablet by ity of hen 7.5-325 15:50: mouth 3 [place] mg per 07 (three) Medical tablet times Branch daily. DICYCLOMINE 2019-08 Yes Take by [facility] HCL 0-21 mouth. ity of (DICYCLOMIN 15:50: [place] E ORAL) [address] [place] [address] Branch FLUTICASONE 2019-08 Yes Inhale. Uni vers /VILANTEROL 0-21 ity of (BREO 15:50: [place] ELLIPTA Medical INHALE) Branch ALBUTEROL 2019-08 Yes Inhale. Unive rs SULFATE 0-21 ity of (PROVENTIL 15:50: [place] INHALE) [address] [place] [address] Branch IPRATROPIUM 2019-08 Yes Inhale. Uni vers BROMIDE 0-21 ity of INHALE 15:50: [address] aspirin 81 2019-08 Yes 81mg Take 81 mg U nivers mg EC 0-21 by mouth. ity of tablet 15:50: [address] docusate 2019-08 Yes 200mg Take 200 [facility] ers 100 mg 0-21 mg by ity of capsule 15:50: mouth. [address] pantoprazol 2019-08 Yes 40mg Take 40 mg [facility] e 40 mg EC 0-21 by mouth ity o f tablet 15:50: daily. [address] HYDROcodone 2019-08 Yes 1{tbl} Take 1 [facility] -acetaminop 0-21 tablet by ity of hen 7.5-325 15:50: mouth 3 [place] as mg per (three) Medical tablet times Branch daily. DICYCLOMINE 2019-08 Yes Take by [facility] HCL 0-21 mouth. ity of (DICYCLOMIN 15:50: [place] E ORAL) [address] [place] [address] FLUTICASONE 2019-08 Yes Inhale. Uni vers /VILANTEROL 0-21 ity of (BREO 15:50: [place] ELLIPTA Medical INHALE) Branch ALBUTEROL 2019-08 Yes Inhale. Unive rs SULFATE 0-21 ity of (PROVENTIL 15:50: [place] INHALE) [address] [place] [address] Branch IPRATROPIUM 2019-08 Yes Inhale. Uni vers BROMIDE 0-21 ity of INHALE 15:50: [address] aspirin 81 2019-08 Yes 81mg Take 81 mg U nivers mg EC 0-21 by mouth. ity of tablet 15:50: [address] docusate 2019-08 Yes 200mg Take 200 [facility] ers 100 mg 0-21 mg by ity of capsule 15:50: mouth. [address] pantoprazol 2019-08 Yes 40mg Take 40 mg [facility] e 40 mg EC 0-21 by mouth ity o f tablet 15:50: daily. [address] HYDROcodone 2019-08 Yes 1{tbl} Take 1 [facility] -acetaminop 0-21 tablet by ity of hen 7.5-325 15:50: mouth 3 [place] mg per 07 (three) Medical tablet times Branch daily. DICYCLOMINE 2019-08 Yes Take by Un nat[facility] HCL 0-21 mouth. ity of (DICYCLOMIN 15:50: [place] E ORAL) Medical Branch FLUTICASONE 2019-08 Yes Inhale. Uni vers /VILANTEROL 0-21 ity of (BREO 15:50: [place] ELLIPTA Medical INHALE) Branch ALBUTEROL 2019-08 Yes Inhale. Unive rs SULFATE 0-21 ity of (PROVENTIL 15:50: [place] INHALE) Medical Branch IPRATROPIUM 2019-08 Yes Inhale. Uni vers BROMIDE 0-21 ity of INHALE 15:50: [address] Branch aspirin 81 2019-08 Yes 81mg Take 81 mg U nivers mg EC 0-21 by mouth. ity of tablet 15:50: [address] Branch docusate 2019-08 Yes 200mg Take 200 Univ ers 100 mg 0-21 mg by ity of capsule 15:50: mouth. [address] Branch pantoprazol 2019-08 Yes 40mg Take 40 mg [facility] e 40 mg EC 0-21 by mouth ity o f tablet 15:50: daily. [address] Branch HYDROcodone 2019-08 Yes 1{tbl} Take 1 [facility] -acetaminop 0-21 tablet by ity of hen 7.5-325 15:50: mouth 3 [place] as mg per (three) Medical tablet times Branch daily. ALPRAZOLAM 2019-08 2020- No Take by Un [facility] ORAL 0-21 10-21 mouth. ity of 15:48: 00:00 [place] 49 :00 Medical Branch ALPRAZOLAM 2019-08 2020- No Take by Un nat[facility] ORAL 0-21 10-21 mouth. ity of 15:48: 00:00 [place] 49 :00 Medical Branch PANTOPRAZOL 2019-08 2020- No 20mg Take 20 mg [facility] E SODIUM 0-21 10-21 by mouth. ity o f (PANTOPRAZO 15:33: 00:00 [place] LE ORAL) 21 :00 Medical Branch PANTOPRAZOL 2019-08 2020- No 20mg Take 20 mg [facility] E SODIUM 0-21 10-21 by mouth. ity o f (PANTOPRAZO 15:33: 00:00 [place] LE ORAL) 21 :00 Medical Branch LORazepam 1 2019-08 Yes [id number] 1mg Take 1 [facility] mg tablet 0-21 tablet by ity o f 00:00: mouth 3 [place] 00 (three) Medical times Branch daily as needed for Anxiety or Agitation. LORazepam 1 2019-08 Yes [id number] 1mg Take 1 [facility] mg tablet 0-21 tablet by ity o f 00:00: mouth 3 00 (three) Medical times Branch daily as needed for Anxiety or Agitation. LORazepam 1 2019-08 Yes [id number] 1mg Take 1 [facility] mg tablet 0-21 tablet by ity o f 00:00: mouth 3 00 (three) Medical times Branch daily as needed for Anxiety or Agitation. LORazepam 1 2019-08 Yes [id number] 1mg Take 1 [facility] mg tablet 0-21 tablet by ity o f 00:00: mouth 3 00 (three) Medical times Branch daily as needed for Anxiety or Agitation. LORazepam 1 2019-08- No [id number] 1mg Take 1 [facility] mg tablet 0-21 12-16 tablet by ity of 00:00: 00:00 mouth 3 [place] 00 :00 (three) Medical times Branch daily as needed for Anxiety or Agitation. LORazepam 1 2019-08- No [id number] 1mg Take 1 [facility] mg tablet 0-21 12-16 tablet by ity of 00:00: 00:00 mouth 3 00 :00 (three) Medical times Branch daily as needed for Anxiety or Agitation. LORazepam 1 2019-08- No [id number] 1mg Take 1 [facility] mg tablet 0-21 12-16 tablet by ity of 00:00: 00:00 mouth 3 [place] 00 :00 (three) Medical times Branch daily as needed for Anxiety or Agitation. ALPRAZolam 2020-0 Yes 1mg Take 1 mg [facility] 1 mg tablet 9-14 by mouth 3 it y of 00:00: (three) [place] 00 times Medical daily. Branch ALPRAZolam 2020-0 Yes 1mg Take 1 mg [facility] 1 mg tablet 9-14 by mouth 3 it y of 00:00: (three) [place] 00 times Medical daily. Branch ALPRAZolam 2020-0 Yes 1mg Take 1 mg [facility] 1 mg tablet 9-14 by mouth 3 it y of 00:00: (three) [place] 00 times Medical daily. Branch ALPRAZolam 2020-0 Yes 1mg Take 1 mg [facility] 1 mg tablet 9-14 by mouth 3 it y of 00:00: (three) [place] 00 times Medical daily. Branch ALPRAZolam 2020-0 Yes 1mg Take 1 mg [facility] 1 mg tablet 9-14 by mouth 3 it y of 00:00: (three) [place] 00 times Medical daily. Branch ALPRAZolam 2020-0 Yes 1mg Take 1 mg [facility] 1 mg tablet 9-14 by mouth 3 it y of 00:00: (three) [place] 00 times Medical daily. Branch ALPRAZolam 2020-0 Yes 1mg Take 1 mg [facility] 1 mg tablet 9-14 by mouth 3 it y of 00:00: (three) [place] 00 times Medical daily. Branch ALPRAZolam 2020-0 Yes 1mg Take 1 mg [facility] 1 mg tablet 9-14 by mouth 3 it y of 00:00: (three) [place] 00 times Medical daily. Branch ALPRAZolam 2020-0 Yes 1mg Take 1 mg [facility] 1 mg tablet 9-14 by mouth 3 it y of 00:00: (three) [place] 00 times Medical daily. Branch ALPRAZolam 2020-0 Yes 1mg Take 1 mg [facility] 1 mg tablet 9-14 by mouth 3 it y of 00:00: (three) [place] 00 times Medical daily. Branch ALPRAZolam 2020-0 2021- No 1mg Take 1 mg U nivers 1 mg tablet 9-14 03-12 by mouth 3 i ty of 00:00: 00:00 (three) [place] 00 :00 times Medical daily. Branch ALPRAZolam 2020-0 2021- No 1mg Take 1 mg U nivers 1 mg tablet 9-14 03-12 by mouth 3 i ty of 00:00: 00:00 (three) [place] 00 :00 times Medical daily. Branch ALPRAZolam 2020-0 2021- No 1mg Take 1 mg U nivers 1 mg tablet 9-14 03-12 by mouth 3 i ty of 00:00: 00:00 (three) [place] 00 :00 times Medical daily. Branch promethazin 2019-0 Yes 5mL Take 5 mL U nivers e-codeine 7-17 by mouth. ity o f 6.25-10 19:54: [place] mg/5 mL 38 Medical syrup Branch promethazin 2019-0 Yes 5mL Take 5 mL U nivers e-codeine 7-17 by mouth. ity o f 6.25-10 19:54: [place] mg/5 mL 38 Medical syrup Branch promethazin 2019-0 Yes 5mL Take 5 mL U nivers e-codeine 7-17 by mouth. ity o f 19:54: [place] mg/5 mL 38 Medical syrup Branch promethazin 2019-0 Yes 5mL Take 5 mL U nivers e-codeine 7-17 by mouth. ity o f . 19:54: [place] mg/5 mL 38 Medical syrup Branch promethazin 2019-0 Yes 5mL Take 5 mL U nivers e-codeine 7-17 by mouth. ity o f 19:54: [place] mg/5 mL 38 Medical syrup Branch promethazin 2019-0 Yes 5mL Take 5 mL U nivers e-codeine 7-17 by mouth. ity o f 19:54: [place] mg/5 mL 38 Medical syrup Branch promethazin 2019-0 Yes 5mL Take 5 mL U nivers e-codeine 7-17 by mouth. ity o f 19:54: [place] mg/5 mL 38 Medical syrup Branch promethazin 2018-0 Yes 5mL Take 5 mL U nivers e-codeine 7-17 by mouth. ity o f 19:54: [place] mg/5 mL 38 Medical syrup Branch promethazin 2018-0 Yes 5mL Take 5 mL U nivers e-codeine 7-17 by mouth. ity o f 19:54: [place] mg/5 mL 38 Medical syrup Branch promethazin 2018-0 Yes 5mL Take 5 mL U nivers e-codeine 7-17 by mouth. ity o f 19:54: [place] mg/5 mL 38 Medical syrup Branch promethazin 2019-0 Yes 5mL Take 5 mL U nivers e-codeine 7-17 by mouth. ity o f 19:54: [place] mg/5 mL 38 Medical syrup Branch promethazin 2019-0 Yes 5mL Take 5 mL U nivers e-codeine 7-17 by mouth. ity o f 6 19:54: [place] mg/5 mL 38 Medical syrup Branch promethazin 2019-0 Yes 5mL Take 5 mL U nivers e-codeine 7-17 by mouth. ity o f 6.25-10 19:54: [place] mg/5 mL 38 Medical syrup Branch promethazin 2019-0 Yes 5mL Take 5 mL U nivers e-codeine 7-17 by mouth. ity o f 19:54: [place] mg/5 mL 38 Medical syrup Branch promethazin 2019-0 Yes 5mL Take 5 mL U nivers e-codeine 7-17 by mouth. ity o f 19:54: [place] mg/5 mL 38 Medical syrup Branch promethazin 2019-0 Yes 5mL Take 5 mL U nivers e-codeine 7-17 by mouth. ity o f 19:54: [place] mg/5 mL 38 Medical syrup Branch promethazin 2019-0 Yes 5mL Take 5 mL U nivers e-codeine 7-17 by mouth. ity o f 19:54: [place] mg/5 mL 38 Medical syrup Branch promethazin 2018-0 Yes 5mL Take 5 mL U nivers e-codeine 7-17 by mouth. ity o f 19:54: [place] mg/5 mL 38 Medical syrup Branch promethazin 2018-0 Yes 5mL Take 5 mL U nivers e-codeine 7-17 by mouth. ity o f 19:54: [place] mg/5 mL 38 Medical syrup Branch promethazin 2019-0 Yes 5mL Take 5 mL U nivers e-codeine 7-17 by mouth. ity o f 19:54: [place] mg/5 mL 38 Medical syrup Branch promethazin 2019-0 Yes 5mL Take 5 mL U nivers e-codeine 7-17 by mouth. ity o f 19:54: [place] mg/5 mL 38 Medical syrup Branch promethazin 2019-0 Yes 5mL Take 5 mL U nivers e-codeine 7-17 by mouth. ity o f 19:54: [place] mg/5 mL 38 Medical syrup Branch promethazin 2019-0 Yes 5mL Take 5 mL U nivers e-codeine 7-17 by mouth. ity o f 19:54: [place] mg/5 mL 38 Medical syrup Branch promethazin 2019-0 Yes 5mL Take 5 mL U nivers e-codeine 7-17 by mouth. ity o f 19:54: [place] mg/5 mL 38 Medical syrup Branch promethazin 2019-0 Yes 5mL Take 5 mL U nivers e-codeine 7-17 by mouth. ity o f 19:54: [place] mg/5 mL 38 Medical syrup Branch promethazin 2018-0 Yes 5mL Take 5 mL U nivers e-codeine 7-17 by mouth. ity o f 19:54: [place] mg/5 mL 38 Medical syrup Branch promethazin 2018-0 Yes 5mL Take 5 mL U nivers e-codeine 7-17 by mouth. ity o f 19:54: [place] mg/5 mL 38 Medical syrup Branch promethazin 2018-0 Yes 5mL Take 5 mL U nivers e-codeine 7-17 by mouth. ity o f 19:54: [place] mg/5 mL 38 Medical syrup Branch promethazin 2018-0 Yes 5mL Take 5 mL U nivers e-codeine 7-17 by mouth. ity o f 19:54: [place] mg/5 mL 38 Medical syrup Branch promethazin 2018-0 Yes 5mL Take 5 mL U nivers e-codeine 7-17 by mouth. ity o f 19:54: [place] mg/5 mL 38 Medical syrup Branch promethazin 2018-0 Yes 5mL Take 5 mL U nivers e-codeine 7-17 by mouth. ity o f 19:54: [place] mg/5 mL 38 Medical syrup Branch promethazin 2018-0 Yes 5mL Take 5 mL U nivers e-codeine 7-17 by mouth. ity o f 19:54: [place] mg/5 mL 38 Medical syrup Branch promethazin 2018-0 Yes 5mL Take 5 mL U nivers e-codeine 7-17 by mouth. ity o f 19:54: [place] mg/5 mL 38 Medical syrup Branch promethazin 2018-0 Yes 5mL Take 5 mL U nivers e-codeine 7-17 by mouth. ity o f 19:54: [place] mg/5 mL 38 Medical syrup Branch promethazin [id number] Yes 5mL Take 5 mL U nivers e-codeine 7-17 by mouth. ity o f 19:54: [place] mg/5 mL 38 Medical syrup Branch promethazin 20190 Yes 5mL Take 5 mL U nivers e-codeine 7-17 by mouth. ity o f 19:54: [place] mg/5 mL 38 Medical syrup Branch TIOTROPIUM 20190 Yes Inhale. Univ ers BROMIDE 7-17 ity of (SPIRIVA 19:52: [place] RESPIMAT 14 Medical INHALE) Branch MOMETASONE Yes Use in Univ ers FUROATE 7-17 each ity of (NASONEX 19:52: nostril. [place] NASAL) 14 Medical Branch TIOTROPIUM Yes Inhale. Univ ers BROMIDE 7-17 ity of (SPIRIVA 19:52: [place] RESPIMAT 14 Medical INHALE) Branch MOMETASONE Yes Use in Univ ers FUROATE 7-17 each ity of (NASONEX 19:52: nostril. [place] NASAL) Medical Branch LACTULOSE Yes Take by Univ ers ORAL 7-17 mouth. ity of 19:52: [place] [address] Medical Branch TIOTROPIUM 20190 Yes Inhale. Univ ers BROMIDE 7-17 ity of (SPIRIVA 19:52: [place] RESPIMAT 14 Medical INHALE) Branch MOMETASONE Yes Use in Univ ers FUROATE 7-17 each ity of (NASONEX 19:52: nostril. [place] NASAL) Medical Branch LACTULOSE Yes Take by Univ ers ORAL 7-17 mouth. ity of 19:52: [place] [address] Medical Branch TIOTROPIUM 20190 Yes Inhale. Univ ers BROMIDE 7-17 ity of (SPIRIVA 19:52: [place] RESPIMAT 14 Medical INHALE) Branch MOMETASONE Yes Use in Univ ers FUROATE 7-17 each ity of (NASONEX 19:52: nostril. [place] NASAL) 14 Medical Branch LACTULOSE Yes Take by Univ ers ORAL 7-17 mouth. ity of 19:52: [place] 14 Medical Branch TIOTROPIUM 20190 Yes Inhale. Univ ers BROMIDE 7-17 ity of (SPIRIVA 19:52: [place] RESPIMAT 14 Medical INHALE) Branch MOMETASONE 20190 Yes Use in Univ ers FUROATE 7-17 each ity of (NASONEX 19:52: nostril. [place] NASAL) [address] [place] [address] Branch LACTULOSE 0 Yes Take by Univ ers ORAL 7-17 mouth. ity of 19:52: [address] Branch TIOTROPIUM 2019-0 Yes Inhale. Univ ers BROMIDE 7-17 ity of (SPIRIVA 19:52: [place] RESPIMAT 14 Medical INHALE) Branch MOMETASONE Yes Use in Univ ers FUROATE 7-17 each ity of (NASONEX 19:52: nostril. [place] NASAL) [address] [place] [address] Branch LACTULOSE 0 Yes Take by Univ ers ORAL 7-17 mouth. ity of 19:52: [address] TIOTROPIUM 2019 Yes Inhale. Univ ers BROMIDE 7-17 ity of (SPIRIVA 19:52: [place] RESPIMAT 14 Medical INHALE) Branch MOMETASONE Yes Use in Univ ers FUROATE 7-17 each ity of (NASONEX 19:52: nostril. [place] NASAL) [address] [place] [address] Branch LACTULOSE 0 Yes Take by Univ ers ORAL 7-17 mouth. ity of 19:52: [address] Branch TIOTROPIUM 0 Yes Inhale. Univ ers BROMIDE 7-17 ity of (SPIRIVA 19:52: [place] RESPIMAT 14 Medical INHALE) Branch MOMETASONE 0 Yes Use in Univ ers FUROATE 7-17 each ity of (NASONEX 19:52: nostril. [place] NASAL) Medical Branch LACTULOSE 0 Yes Take by Univ ers ORAL 7-17 mouth. ity of 19:52: [address] Branch TIOTROPIUM 2019-0 Yes Inhale. Univ ers BROMIDE 7-17 ity of (SPIRIVA 19:52: [place] RESPIMAT 14 Medical INHALE) Branch MOMETASONE Yes Use in Univ ers FUROATE 7-17 each ity of (NASONEX 19:52: nostril. [place] NASAL) [address] [place] [address] Branch LACTULOSE 0 Yes Take by Univ ers ORAL 7-17 mouth. ity of 19:52: [place] [address] Medical Branch TIOTROPIUM 2019 Yes Inhale. Univ ers BROMIDE 7-17 ity of (SPIRIVA 19:52: [place] RESPIMAT 14 Medical INHALE) Branch MOMETASONE Yes Use in Univ ers FUROATE 7-17 each ity of (NASONEX 19:52: nostril. [place] NASAL) Medical Branch LACTULOSE Yes Take by Univ ers ORAL 7-17 mouth. ity of 19:52: [address] Branch TIOTROPIUM [address] Yes Inhale. Univ ers BROMIDE 7-17 ity of (SPIRIVA 19:52: [place] RESPIMAT 14 Medical INHALE) Branch MOMETASONE Yes Use in Univ ers FUROATE 7-17 each ity of (NASONEX 19:52: nostril. [place] NASAL) Medical Branch LACTULOSE Yes Take by Univ ers ORAL 7-17 mouth. ity of 19:52: [address] Branch TIOTROPIUM Yes Inhale. Univ ers BROMIDE 7-17 ity of (SPIRIVA 19:52: [place] RESPIMAT 14 Medical INHALE) Branch MOMETASONE Yes Use in Univ ers FUROATE 7-17 each ity of (NASONEX 19:52: nostril. [place] NASAL) [address] [place] [address] Branch LACTULOSE 0 Yes Take by Univ ers ORAL 7-17 mouth. ity of 19:52: [address] Branch TIOTROPIUM Yes Inhale. Univ ers BROMIDE 7-17 ity of (SPIRIVA 19:52: [place] RESPIMAT 14 Medical INHALE) Branch MOMETASONE Yes Use in Univ ers FUROATE 7-17 each ity of (NASONEX 19:52: nostril. [place] NASAL) Medical Branch LACTULOSE Yes Take by Univ ers ORAL 7-17 mouth. ity of 19:52: [address] Branch TIOTROPIUM [address] Yes Inhale. Univ ers BROMIDE 7-17 ity of (SPIRIVA 19:52: [place] RESPIMAT 14 Medical INHALE) Branch MOMETASONE Yes Use in Univ ers FUROATE 7-17 each ity of (NASONEX 19:52: nostril. [place] NASAL) Medical Branch LACTULOSE Yes Take by Univ ers ORAL 7-17 mouth. ity of 19:52: [place] [address] Medical Branch TIOTROPIUM 20190 Yes Inhale. Univ ers BROMIDE 7-17 ity of (SPIRIVA 19:52: [place] RESPIMAT 14 Medical INHALE) Branch MOMETASONE Yes Use in Univ ers FUROATE 7-17 each ity of (NASONEX 19:52: nostril. [place] NASAL) Medical Branch LACTULOSE 0 Yes Take by Univ ers ORAL 7-17 mouth. ity of 19:52: [place] [address] Medical Branch TIOTROPIUM 0 Yes Inhale. Univ ers BROMIDE 7-17 ity of (SPIRIVA 19:52: [place] RESPIMAT 14 Medical INHALE) Branch MOMETASONE Yes Use in Univ ers FUROATE 7-17 each ity of (NASONEX 19:52: nostril. [place] NASAL) [address] [place] [address] Branch LACTULOSE Yes Take by Univ ers ORAL 7-17 mouth. ity of 19:52: [address] Branch TIOTROPIUM 0 Yes Inhale. Univ ers BROMIDE 7-17 ity of (SPIRIVA 19:52: [place] RESPIMAT 14 Medical INHALE) Branch MOMETASONE Yes Use in Univ ers FUROATE 7-17 each ity of (NASONEX 19:52: nostril. [place] NASAL) [address] [place] [address] Branch LACTULOSE Yes Take by Univ ers ORAL 7-17 mouth. ity of 19:52: [place] [address] Medical Branch TIOTROPIUM Yes Inhale. Univ ers BROMIDE 7-17 ity of (SPIRIVA 19:52: [place] RESPIMAT 14 Medical INHALE) Branch MOMETASONE Yes Use in Univ ers FUROATE 7-17 each ity of (NASONEX 19:52: nostril. [place] NASAL) Medical Branch TIOTROPIUM 20190 Yes Inhale. Univ ers BROMIDE 7-17 ity of (SPIRIVA 19:52: [place] RESPIMAT 14 Medical INHALE) Branch MOMETASONE 0 Yes Use in Univ ers FUROATE 7-17 each ity of (NASONEX 19:52: nostril. [place] NASAL) Medical Branch TIOTROPIUM 0 Yes Inhale. Univ ers BROMIDE 7-17 ity of (SPIRIVA 19:52: [place] RESPIMAT 14 Medical INHALE) Branch MOMETASONE 2019-0 Yes Use in Univ ers FUROATE 7-17 each ity of (NASONEX 19:52: nostril. [place] NASAL) 14 Medical Branch TIOTROPIUM 2019-0 Yes Inhale. Univ ers BROMIDE 7-17 ity of (SPIRIVA 19:52: [place] RESPIMAT 14 Medical INHALE) Branch MOMETASONE 2019-0 Yes Use in Univ ers FUROATE 7-17 each ity of (NASONEX 19:52: nostril. [place] NASAL) 14 Medical Branch TIOTROPIUM 2019-0 Yes Inhale. Univ ers BROMIDE 7-17 ity of (SPIRIVA 19:52: [place] RESPIMAT 14 Medical INHALE) Branch MOMETASONE 2019-0 Yes Use in Univ ers FUROATE 7-17 each ity of (NASONEX 19:52: nostril. [place] NASAL) 14 Medical Branch TIOTROPIUM 2019-0 Yes Inhale. Univ ers BROMIDE 7-17 ity of (SPIRIVA 19:52: [place] RESPIMAT 14 Medical INHALE) Branch MOMETASONE 2019-0 Yes Use in Univ ers FUROATE 7-17 each ity of (NASONEX 19:52: nostril. [place] NASAL) 14 Medical Branch TIOTROPIUM 2019-0 Yes Inhale. Univ ers BROMIDE 7-17 ity of (SPIRIVA 19:52: [place] RESPIMAT 14 Medical INHALE) Branch MOMETASONE 2019-0 Yes Use in Univ ers FUROATE 7-17 each ity of (NASONEX 19:52: nostril. [place] NASAL) 14 Medical Branch TIOTROPIUM 2019-0 Yes Inhale. Univ ers BROMIDE 7-17 ity of (SPIRIVA 19:52: [place] RESPIMAT 14 Medical INHALE) Branch MOMETASONE 2019-0 Yes Use in Univ ers FUROATE 7-17 each ity of (NASONEX 19:52: nostril. [place] NASAL) 14 Medical Branch TIOTROPIUM 2019-0 Yes Inhale. Univ ers BROMIDE 7-17 ity of (SPIRIVA 19:52: [place] RESPIMAT 14 Medical INHALE) Branch MOMETASONE 2019-0 Yes Use in Univ ers FUROATE 7-17 each ity of (NASONEX 19:52: nostril. [place] NASAL) 14 Medical Branch TIOTROPIUM 2019-0 Yes Inhale. Univ ers BROMIDE 7-17 ity of (SPIRIVA 19:52: [place] RESPIMAT 14 Medical INHALE) Branch MOMETASONE 2019-0 Yes Use in Univ ers FUROATE -17 each ity of (NASONEX 19:52: nostril. [place] NASAL) 14 Medical Branch TIOTROPIUM 2019-0 Yes Inhale. Univ ers BROMIDE -17 ity of (SPIRIVA 19:52: [place] RESPIMAT 14 Medical INHALE) Branch MOMETASONE 2019-0 Yes Use in Univ ers FUROATE -17 each ity of (NASONEX 19:52: nostril. [place] NASAL) 14 Medical Branch TIOTROPIUM 2019-0 Yes Inhale. Univ ers BROMIDE - ity of (SPIRIVA 19:52: [place] RESPIMAT 14 Medical INHALE) Branch MOMETASONE 2019-0 Yes Use in Univ ers FUROATE -17 each ity of (NASONEX 19:52: nostril. [place] NASAL) 14 Medical Branch TIOTROPIUM 2019-0 Yes Inhale. Univ ers BROMIDE - ity of (SPIRIVA 19:52: [place] RESPIMAT 14 Medical INHALE) Branch MOMETASONE 2019-0 Yes Use in Univ ers FUROATE -17 each ity of (NASONEX 19:52: nostril. [place] NASAL) 14 Medical Branch TIOTROPIUM 2019-0 Yes Inhale. Univ ers BROMIDE -17 ity of (SPIRIVA 19:52: [place] RESPIMAT 14 Medical INHALE) Branch MOMETASONE 2019-0 Yes Use in Univ ers FUROATE -17 each ity of (NASONEX 19:52: nostril. [place] NASAL) 14 Medical Branch TIOTROPIUM 2019-0 Yes Inhale. Univ ers BROMIDE 7-17 ity of (SPIRIVA 19:52: [place] RESPIMAT 14 Medical INHALE) Branch MOMETASONE 2019-0 Yes Use in Univ ers FUROATE -17 each ity of (NASONEX 19:52: nostril. [place] NASAL) 14 Medical Branch TIOTROPIUM 2019-0 Yes Inhale. Univ ers BROMIDE 7-17 ity of (SPIRIVA 19:52: [place] RESPIMAT 14 Medical INHALE) Branch MOMETASONE 2019-0 Yes Use in Univ ers FUROATE 7-17 each ity of (NASONEX 19:52: nostril. [place] NASAL) 14 Medical Branch TIOTROPIUM 0 Yes Inhale. Univ ers BROMIDE 7-17 ity of (SPIRIVA 19:52: [place] RESPIMAT 14 Medical INHALE) Branch MOMETASONE Yes Use in Univ ers FUROATE 7-17 each ity of (NASONEX 19:52: nostril. [place] NASAL) 14 Medical Branch TIOTROPIUM 0 Yes Inhale. Univ ers BROMIDE 7-17 ity of (SPIRIVA 19:52: [place] RESPIMAT 14 Medical INHALE) Branch MOMETASONE Yes Use in Univ ers FUROATE 7-17 each ity of (NASONEX 19:52: nostril. [place] NASAL) 14 Medical Branch TIOTROPIUM Yes Inhale. Univ ers BROMIDE 7-17 ity of (SPIRIVA 19:52: [place] RESPIMAT 14 Medical INHALE) Branch MOMETASONE Yes Use in Univ ers FUROATE 7-17 each ity of (NASONEX 19:52: nostril. [place] NASAL) 14 Medical Branch promethazin Yes 5mL Take 5 mL U nivers e-codeine 7-17 by mouth. ity o f 6. 14:54: [place] mg/5 mL 38 Medical syrup Branch promethazin Yes 5mL Take 5 mL U nivers e-codeine 7-17 by mouth. ity o f 6. 14:54: [place] mg/5 mL 38 Medical syrup Branch promethazin Yes 5mL Take 5 mL U nivers e-codeine 7-17 by mouth. ity o f 6. 14:54: [place] mg/5 mL 38 Medical syrup Branch promethazin 0 Yes 5mL Take 5 mL U nivers e-codeine 7-17 by mouth. ity o f 6. 14:54: [place] mg/5 mL 38 Medical syrup Branch promethazin 0 Yes 5mL Take 5 mL U nivers e-codeine 7-17 by mouth. ity o f 6.25 14:54: [place] mg/5 mL 38 Medical syrup Branch promethazin 2019-0 Yes 5mL Take 5 mL U nivers e-codeine 7-17 by mouth. ity o f 6. 14:54: [place] mg/5 mL 38 Medical syrup Branch promethazin 0 Yes 5mL Take 5 mL U nivers e-codeine 7-17 by mouth. ity o f 6. 14:54: [place] mg/5 mL 38 Medical syrup Branch promethazin 20190 Yes 5mL Take 5 mL U nivers e-codeine 7-17 by mouth. ity o f 6 14:54: [place] mg/5 mL 38 Medical syrup Branch TIOTROPIUM 20190 Yes Inhale. Univ ers BROMIDE 7-17 ity of (SPIRIVA 14:52: [place] RESPIMAT 14 Medical INHALE) Branch MOMETASONE 0 Yes Use in Univ ers FUROATE -17 each ity of (NASONEX 14:52: nostril. [place] NASAL) 14 Medical Branch TIOTROPIUM 0 Yes Inhale. Univ ers BROMIDE 7-17 ity of (SPIRIVA 14:52: [place] RESPIMAT 14 Medical INHALE) Branch MOMETASONE Yes Use in Univ ers FUROATE 7-17 each ity of (NASONEX 14:52: nostril. [place] NASAL) 14 Medical Branch TIOTROPIUM 0 Yes Inhale. Univ ers BROMIDE 7-17 ity of (SPIRIVA 14:52: [place] RESPIMAT 14 Medical INHALE) Branch MOMETASONE Yes Use in Univ ers FUROATE 7-17 each ity of (NASONEX 14:52: nostril. [place] NASAL) 14 Medical Branch TIOTROPIUM 20190 Yes Inhale. Univ ers BROMIDE 7-17 ity of (SPIRIVA 14:52: [place] RESPIMAT 14 Medical INHALE) Branch MOMETASONE 0 Yes Use in Univ ers FUROATE 7-17 each ity of (NASONEX 14:52: nostril. [place] NASAL) 14 Medical Branch TIOTROPIUM 20190 Yes Inhale. Univ ers BROMIDE 7-17 ity of (SPIRIVA 14:52: [place] RESPIMAT 14 Medical INHALE) Branch MOMETASONE 0 Yes Use in Univ ers FUROATE 7-17 each ity of (NASONEX 14:52: nostril. [place] NASAL) 14 Medical Branch TIOTROPIUM Yes Inhale. Univ ers BROMIDE 7-17 ity of (SPIRIVA 14:52: [place] RESPIMAT 14 Medical INHALE) Branch MOMETASONE Yes Use in Univ ers FUROATE -17 each ity of (NASONEX 14:52: nostril. [place] NASAL) 14 Medical Branch TIOTROPIUM Yes Inhale. Univ ers BROMIDE 7-17 ity of (SPIRIVA 14:52: [place] RESPIMAT 14 Medical INHALE) Branch MOMETASONE Yes Use in Univ ers FUROATE 7-17 each ity of (NASONEX 14:52: nostril. [place] NASAL) 14 Medical Branch TIOTROPIUM Yes Inhale. Univ ers BROMIDE -17 ity of (SPIRIVA 14:52: [place] RESPIMAT 14 Medical INHALE) Branch MOMETASONE Yes Use in Univ ers FUROATE -17 each ity of (NASONEX 14:52: nostril. [place] NASAL) 14 Medical Branch buprenorphi Yes APPLY ONE U nivers ne 10 6-05 PATCH TO ity of mcg/hour 00:00: SKIN ONCE [place] patch 00 A WEEK FOR Medical 28 DAYS Branch buprenorphi Yes APPLY ONE U nivers ne 10 6-05 PATCH TO ity of mcg/hour 00:00: SKIN ONCE [place] patch 00 A WEEK FOR Medical 28 DAYS Branch buprenorphi Yes APPLY ONE U nivers ne 10 6-05 PATCH TO ity of mcg/hour 00:00: SKIN ONCE [place] patch 00 A WEEK FOR Medical 28 DAYS Branch buprenorphi Yes APPLY ONE U nivers ne 10 6-05 PATCH TO ity of mcg/hour 00:00: SKIN ONCE [place] patch 00 A WEEK FOR Medical 28 DAYS Branch buprenorphi Yes APPLY ONE U nivers ne 10 6-05 PATCH TO ity of mcg/hour 00:00: SKIN ONCE [place] patch 00 A WEEK FOR Medical 28 DAYS Branch buprenorphi Yes APPLY ONE U nivers ne 10 6-05 PATCH TO ity of mcg/hour 00:00: SKIN ONCE [place] patch 00 A WEEK FOR Medical 28 DAYS Branch buprenorphi 2019 Yes APPLY ONE U nivers ne 10 6-05 PATCH TO ity of mcg/hour 00:00: SKIN ONCE [place] patch 00 A WEEK FOR Medical 28 DAYS Branch buprenorphi 2019 Yes APPLY ONE U nivers ne 10 6-05 PATCH TO ity of mcg/hour 00:00: SKIN ONCE [place] patch 00 A WEEK FOR Medical 28 DAYS Branch buprenorphi 2019 Yes APPLY ONE U nivers ne 10 6-05 PATCH TO ity of mcg/hour 00:00: SKIN ONCE [place] patch 00 A WEEK FOR Medical 28 DAYS Branch buprenorphi Yes APPLY ONE U nivers ne 10 6-05 PATCH TO ity of mcg/hour 00:00: SKIN ONCE [place] patch 00 A WEEK FOR Medical 28 DAYS Branch buprenorphi Yes APPLY ONE U nivers ne 10 6-05 PATCH TO ity of mcg/hour 00:00: SKIN ONCE [place] patch 00 A WEEK FOR Medical 28 DAYS Branch buprenorphi 2019 Yes APPLY ONE U nivers ne 10 6-05 PATCH TO ity of mcg/hour 00:00: SKIN ONCE [place] patch 00 A WEEK FOR Medical 28 DAYS Branch buprenorphi 2019 Yes APPLY ONE U nivers ne 10 6-05 PATCH TO ity of mcg/hour 00:00: SKIN ONCE [place] patch 00 A WEEK FOR Medical 28 DAYS Branch buprenorphi 2019 Yes APPLY ONE U nivers ne 10 6-05 PATCH TO ity of mcg/hour 00:00: SKIN ONCE [place] patch 00 A WEEK FOR Medical 28 DAYS Branch buprenorphi 2019 Yes APPLY ONE U nivers ne 10 6-05 PATCH TO ity of mcg/hour 00:00: SKIN ONCE [place] patch 00 A WEEK FOR Medical 28 DAYS Branch buprenorphi 2019 Yes APPLY ONE U nivers ne 10 6-05 PATCH TO ity of mcg/hour 00:00: SKIN ONCE [place] patch 00 A WEEK FOR Medical 28 DAYS Branch buprenorphi 2019 Yes APPLY ONE U nivers ne 10 6-05 PATCH TO ity of mcg/hour 00:00: SKIN ONCE [place] patch 00 A WEEK FOR Medical 28 DAYS Branch buprenorphi 2019-0 Yes APPLY ONE U nivers ne 10 6-05 PATCH TO ity of mcg/hour 00:00: SKIN ONCE [place] patch 00 A WEEK FOR Medical 28 DAYS Branch buprenorphi 2019-0 Yes APPLY ONE U nivers ne 10 6-05 PATCH TO ity of mcg/hour 00:00: SKIN ONCE [place] patch 00 A WEEK FOR Medical 28 DAYS Branch buprenorphi 2019- Yes APPLY ONE U nivers ne 10 6-05 PATCH TO ity of mcg/hour 00:00: SKIN ONCE [place] patch 00 A WEEK FOR Medical 28 DAYS Branch buprenorphi [address] Yes APPLY ONE U nivers ne 10 6-05 PATCH TO ity of mcg/hour 00:00: SKIN ONCE [place] patch 00 A WEEK FOR Medical 28 DAYS Branch buprenorphi 2019 Yes APPLY ONE U nivers ne 10 6-05 PATCH TO ity of mcg/hour 00:00: SKIN ONCE [place] patch 00 A WEEK FOR Medical 28 DAYS Branch buprenorphi 2019 Yes APPLY ONE U nivers ne 10 6-05 PATCH TO ity of mcg/hour 00:00: SKIN ONCE [place] patch 00 A WEEK FOR Medical 28 DAYS Branch buprenorphi 201[address] Yes APPLY ONE U nivers ne 10 6-05 PATCH TO ity of mcg/hour 00:00: SKIN ONCE [place] patch 00 A WEEK FOR Medical 28 DAYS Branch buprenorphi 2019-0 Yes APPLY ONE U nivers ne 10 6-05 PATCH TO ity of mcg/hour 00:00: SKIN ONCE [place] patch 00 A WEEK FOR Medical 28 DAYS Branch buprenorphi 2019-0 Yes APPLY ONE U nivers ne 10 6-05 PATCH TO ity of mcg/hour 00:00: SKIN ONCE [place] patch 00 A WEEK FOR Medical 28 DAYS Branch buprenorphi 201[address] Yes APPLY ONE U nivers ne 10 6-05 PATCH TO ity of mcg/hour 00:00: SKIN ONCE [place] patch 00 A WEEK FOR Medical 28 DAYS Branch buprenorphi 2019-0 Yes APPLY ONE U nivers ne 10 6-05 PATCH TO ity of mcg/hour 00:00: SKIN ONCE [place] patch 00 A WEEK FOR Medical 28 DAYS Branch buprenor[place] [address] Yes APPLY ONE U nivers ne 10 6-05 PATCH TO ity of mcg/hour 00:00: SKIN ONCE [place] patch 00 A WEEK FOR Medical 28 DAYS Branch buprenorphi 2019 Yes APPLY ONE U nivers ne 10 6-05 PATCH TO ity of mcg/hour 00:00: SKIN ONCE [place] patch 00 A WEEK FOR Medical 28 DAYS Branch buprenorphi 2019 Yes APPLY ONE U nivers ne 10 6-05 PATCH TO ity of mcg/hour 00:00: SKIN ONCE [place] patch 00 A WEEK FOR Medical 28 DAYS Branch buprenorphi Yes APPLY ONE U nivers ne 10 6-05 PATCH TO ity of mcg/hour 00:00: SKIN ONCE [place] patch 00 A WEEK FOR Medical 28 DAYS Branch buprenorphi Yes APPLY ONE U nivers ne 10 6-05 PATCH TO ity of mcg/hour 00:00: SKIN ONCE [place] patch 00 A WEEK FOR Medical 28 DAYS Branch buprenorphi Yes APPLY ONE U nivers ne 10 6-05 PATCH TO ity of mcg/hour 00:00: SKIN ONCE [place] patch 00 A WEEK FOR Medical 28 DAYS Branch buprenorphi Yes APPLY ONE U nivers ne 10 6-05 PATCH TO ity of mcg/hour 00:00: SKIN ONCE [place] patch 00 A WEEK FOR Medical 28 DAYS Branch buprenorphi 2019 Yes APPLY ONE U nivers ne 10 6-05 PATCH TO ity of mcg/hour 00:00: SKIN ONCE [place] patch 00 A WEEK FOR Medical 28 DAYS Branch buprenorphi 2019 Yes APPLY ONE U nivers ne 10 6-05 PATCH TO ity of mcg/hour 00:00: SKIN ONCE [place] patch 00 A WEEK FOR Medical 28 DAYS Branch buprenorphi 2019 Yes APPLY ONE U nivers ne 10 6-05 PATCH TO ity of mcg/hour 00:00: SKIN ONCE [place] patch 00 A WEEK FOR Medical 28 DAYS Branch b[place]ren[place] [address] Yes APPLY ONE U nivers ne 10 6-05 PATCH TO ity of mcg/hour 00:00: SKIN ONCE [place] patch 00 A WEEK FOR Medical 28 DAYS Branch buprenorphi 2019 Yes APPLY ONE U nivers ne 10 6-05 PATCH TO ity of mcg/hour 00:00: SKIN ONCE [place] patch 00 A WEEK FOR Medical 28 DAYS Branch buprenorphi Yes APPLY ONE U nivers ne 10 6-05 PATCH TO ity of mcg/hour 00:00: SKIN ONCE [place] patch 00 A WEEK FOR Medical 28 DAYS Branch buprenorphi Yes APPLY ONE U nivers ne 10 6-05 PATCH TO ity of mcg/hour 00:00: SKIN ONCE [place] patch 00 A WEEK FOR Medical 28 DAYS Branch buprenorphi Yes APPLY ONE U nivers ne 10 6-05 PATCH TO ity of mcg/hour 00:00: SKIN ONCE [place] patch 00 A WEEK FOR Medical 28 DAYS Branch buprenorphi Yes APPLY ONE U nivers ne 10 6-05 PATCH TO ity of mcg/hour 00:00: SKIN ONCE [place] patch 00 A WEEK FOR Medical 28 DAYS Branch SYMBICORT Yes TAKE 2 Univer s 160-4.5 5-13 PUFFS BY ity of mcg/actuati 00:00: MOUTH [place] on inhaler 00 TWICE A Medica l DAY Branch SYMBICORT Yes TAKE 2 Univer s 160-4.5 5-13 PUFFS BY ity of mcg/actuati 00:00: MOUTH [place] on inhaler 00 TWICE A Medica l DAY Branch SYMBICORT Yes TAKE 2 Univer s 160-4.5 5-13 PUFFS BY ity of mcg/actuati 00:00: MOUTH [place] on inhaler 00 TWICE A Medica l DAY Branch SYMBICORT Yes TAKE 2 Univer s 160-4.5 5-13 PUFFS BY ity of mcg/actuati 00:00: MOUTH [place] on inhaler 00 TWICE A Medica l DAY Branch SYMBICORT Yes TAKE 2 Univer s 160-4.5 5-13 PUFFS BY ity of mcg/actuati 00:00: MOUTH [place] on inhaler 00 TWICE A Medica l DAY Branch SYMBICORT Yes TAKE 2 Univer s 160-4.5 5-13 PUFFS BY ity of mcg/actuati 00:00: MOUTH [place] on inhaler 00 TWICE A Medica l DAY Branch SYMBICORT Yes TAKE 2 Univer s 160-4.5 5-13 PUFFS BY ity of mcg/actuati 00:00: MOUTH [place] on inhaler 00 TWICE A Medica l DAY Branch SYMBICORT Yes TAKE 2 Univer s 160-4.5 5-13 PUFFS BY ity of mcg/actuati 00:00: MOUTH [place] on inhaler 00 TWICE A Medica l DAY Branch SYMBICORT Yes TAKE 2 Univer s 160-4.5 5-13 PUFFS BY ity of mcg/actuati 00:00: MOUTH [place] on inhaler 00 TWICE A Medica l DAY Branch SYMBICORT Yes TAKE 2 Univer s 160-4.5 5-13 PUFFS BY ity of mcg/actuati 00:00: MOUTH [place] on inhaler 00 TWICE A Medica l DAY Branch SYMBICORT 2020- No TAKE 2 Unive rs 160-4.5 5-13 03-12 PUFFS BY ity of mcg/actuati 00:00: 00:00 MOUTH [place] inhaler 00 :00 TWICE A Medica l DAY Branch SYMBICORT 2020- No TAKE 2 Unive rs 160-4.5 5-13 03-12 PUFFS BY ity of mcg/actuati 00:00: 00:00 MOUTH [place] inhaler 00 :00 TWICE A Medica l DAY Branch SYMBICORT 2020- No TAKE 2 Unive rs 160-4.5 5-13 03-12 PUFFS BY ity of mcg/actuati 00:00: 00:00 [place]TH [place] inhaler 00 :00 TWICE A Medica l DAY Branch aspirin 81 Yes 81mg QD Take [address] [facility] 4-30 by [facility] 10:[facility]: [facility]. [facility] ALPRAZolam Yes .5mg Take 0.[address] [facility] [...] al 20 MG 04 [facility] tablet cetirizine 2019-0 Yes 10mg Take 10 mg C [facility] [...] [facility]iscellane [facility] - SYSTEMS 10:34: ous route. [facility] josé miguel MISC 04 Center cyclobenzap 2020- No 5mg Take 1 Uni vers rine 7-26 10-21 tablet by ity of (FLEXERIL) 00:00: 00:00 mouth 3 [place] as 5 mg tablet 00 :00 (three) Medic al times Branch daily. cyclobenzap 2020- No 5mg Take 1 Uni vers rine 7-26 10-21 tablet by ity of (FLEXERIL) 00:00: 00:00 mouth 3 [place] as 5 mg tablet 00 :00 (three) Medic al times Branch daily. predniSONE Yes 10mg Take 1 Unive rs (DELTASONE) 5-02 tablet by ity of 10 mg 00:00: mouth [place] tablet 00 daily. Medical Branch predniSONE Yes 10mg Take 1 Unive rs (DELTASONE) 5-02 tablet by ity of 10 mg 00:00: mouth [place] tablet 00 daily. Medical Branch predniSONE Yes 10mg Take 1 Unive rs (DELTASONE) 5-02 tablet by ity of 10 mg 00:00: mouth [place] tablet 00 daily. Medical Branch predniSONE 0 Yes 10mg Take 1 Unive rs (DELTASONE) 5-02 tablet by ity of 10 mg 00:00: mouth [place] tablet 00 daily. Medical Branch predniSONE Yes 10mg Take 1 Unive rs (DELTASONE) 5-02 tablet by ity of 10 mg 00:00: mouth [place] tablet 00 daily. Medical Branch predniSONE 0 Yes 10mg Take 1 Unive rs (DELTASONE) 5-02 tablet by ity of 10 mg 00:00: mouth [place] tablet 00 daily. Medical Branch predniSONE Yes 10mg Take 1 Unive rs (DELTASONE) 5-02 tablet by ity of 10 mg 00:00: mouth [place] tablet 00 daily. Medical Branch predniSONE Yes 10mg Take 1 Unive rs (DELTASONE) 5-02 tablet by ity of 10 mg 00:00: mouth [place] tablet 00 daily. Medical Branch predniSONE Yes 10mg Take 1 Unive rs (DELTASONE) 5-02 tablet by ity of 10 mg 00:00: mouth [place] tablet 00 daily. Medical Branch predniSONE Yes 10mg Take 1 Unive rs (DELTASONE) 5-02 tablet by ity of 10 mg 00:00: mouth [place] tablet 00 daily. Medical Branch predniSONE 2020- No 10mg Take 1 Univ ers (DELTASONE) 5-02 03-12 tablet by it y of 10 mg 00:00: 00:00 mouth [place] tablet 00 :00 daily. Medical Branch predniSONE 2020- No 10mg Take 1 Univ ers (DELTASONE) 5-02 03-12 tablet by it y of 10 mg 00:00: 00:00 mouth [place] tablet 00 :00 daily. Medical Branch predniSONE 2020- No 10mg Take 1 Univ ers (DELTASONE) 5-02 03-12 tablet by it y of 10 mg 00:00: 00:00 mouth [place] tablet 00 :00 daily. Medical Branch AMLODIPINE 2006-08 Yes [id number] take one [facility] 5 MG ORAL 0-19 tab PO ity of TAB 00:00: daily 00 Medical Branch AMLODIPINE 2006- Yes [id number] take one [facility] 5 MG ORAL 0-19 tab PO ity of TAB 00:00: daily 00 Medical Branch AMLODIPINE 2006- Yes [id number] take one [facility] 5 MG ORAL 0-19 tab PO ity of TAB 00:00: daily 00 Medical Branch AMLODIPINE 2006-08 Yes [id number] take one [facility] 5 MG ORAL 0-19 tab PO ity of TAB 00:00: daily 00 Medical Branch AMLODIPINE 2006- Yes [id number] take one [facility] 5 MG ORAL 0-19 tab PO ity of TAB 00:00: daily [place] 00 [facility] AMLODIPINE 2006-08 Yes [id number] take one [facility] 5 MG ORAL 0-19 tab PO ity of TAB 00:00: daily [place] 00 [facility] AMLODIPINE 2006-08 Yes [id number] take one [facility] 5 MG ORAL 0-19 tab PO ity of TAB 00:00: daily [place] [facility] AMLODIPINE 2006-08 Yes [id number] take one [facility] 5 MG ORAL 0-19 tab PO ity of TAB 00:00: daily [place] [facility] AMLODIPINE 2006-081- No [id number] take one [facility] 5 MG ORAL 0-19 01-19 tab PO ity of TAB 00:00: 00:00 daily [place] 00 :00 [facility] NORCO 5-325 2006-08 2020- No [id number] take one [facility] MG ORAL TAB 0-19 10-21 tab q6hprn i ty of 00:00: 00:00 for pain [place] 00 :00 [facility] NORCO 5-325 2006-08 2020- No [id number] take one [facility] MG ORAL TAB 0-19 10-21 tab q6hprn i ty of 00:00: 00:00 for pain [place] 00 :00 [facility] COMBIVENT 2020- No [id number] 2 puff BID [facility] 103-18 7-11 10-21 ity of MCG/ACTUATI 00:00: 00:00 [place] ON INHALE 00 :00 Medical AERO Branch COMBIVENT 2020- No [id number] 2 puff BID [facility] 103-18 7-11 10-21 ity of MCG/ACTUATI 00:00: 00:00 [place] ON INHALE 00 :00 [facility] AERO Branch Butrans Butrans Yes Na [facility] 1 patch [facility] [place] Na [facility] [address] [facility] Norvasc Norvasc Yes Na [facility] [address] [facility] Protonix Protonix Yes Na [facility] 1/[address] [facility] PredniSONE PredniSONE [facility] Na [facility] [address] [facility] Combivent Combivent Yes Na [facility] not [facility] Vital Signs Vital Name Observation Time Observation Value Comments Source Systolic blood 2021-04-23 18:12:00 158 mm[Hg] Univer sity [facility] Diastolic blood 2021-04-23 18:12:00 93 mm[Hg] Unive rsity [facility] Heart rate 2021-04-23 18:11:00 101 /min [facility] Respiratory rate 2021-04-23 18:11:00 20 /min [facility] Body height 2021-04-23 18:11:00 154.9 cm [facility] Body weight 2021-04-23 18:11:00 64.048 kg [facility] BMI 2021-04-23 18:11:00 26.68 kg/m2 [facility] Oxygen saturation in 2021-04-23 18:11:00 99 /min [facility] Arterial blood by [facility] Pulse oximetry Branch Systolic blood 2021-02-26 20:20:00 128 mm[Hg] [facility]iver [facility]ity [facility] Diastolic blood 2021-02-26 20:20:00 70 mm[Hg] Unive rsity [facility] Heart rate 2021-02-26 20:20:00 101 /min [facility] Body height 2021-02-26 20:20:00 152.4 cm [facility] Body weight 2021-02-26 20:20:00 62.143 kg [facility] BMI 2021-02-26 20:20:00 26.76 kg/m2 [facility] Systolic blood 2021-02-26 20:20:00 128 mm[Hg] [facility]iver [facility] Diastolic blood 2021-02-26 20:20:00 70 mm[Hg] Unive rsity [facility] Heart rate 2021-02-26 20:20:00 101 /min [facility] Body height 2021-02-26 20:20:00 152.4 cm [facility] Body weight 2021-02-26 20:20:00 62.143 kg [facility] BMI 2021-02-26 20:20:00 26.76 kg/m2 [facility] Systolic blood 2021-02-08 16:20:00 146 mm[Hg] Univer [facility]ity [facility] Diastolic blood 2021-02-08 16:20:00 84 mm[Hg] Unive rsity [facility] Heart rate 2021-02-08 16:20:00 113 /min [facility] Body temperature 2021-02-08 16:20:00 36.61 Odalys [facility] Body height 2021-02-08 16:20:00 152.4 cm [facility] Body weight 2021-02-08 16:20:00 61.236 kg [facility] BMI 2021-02-08 16:20:00 26.37 kg/m2 [facility] Systolic blood 2020-12-11 19:15:00 137 mm[Hg] [facility]iver [facility] Diastolic blood 2020-12-11 19:15:00 80 mm[Hg] Unive [facility]ity [facility] Heart rate 2020-12-11 19:15:00 112 /min [facility] Body height 2020-12-11 19:10:00 152.4 cm [facility] Body weight 2020-12-11 19:10:00 63.504 kg [facility] BMI 2020-12-11 19:10:00 27.34 kg/m2 [facility] Systolic blood 2020-11-09 20:25:00 159 mm[Hg] [facility] Diastolic blood 2020-11-09 20:25:00 84 mm[Hg] Unive [facility] Heart rate 2020-11-09 20:25:00 104 /min [facility] Body height 2020-11-09 20:25:00 152.4 cm [facility] Body weight 2020-11-09 20:25:00 63.504 kg [facility] BMI 2020-11-09 20:25:00 27.34 kg/m2 [facility] Systolic blood 2020-08-15 21:43:00 149 mm[Hg] [facility]iver [facility] Diastolic blood 2020-08-15 21:43:00 94 mm[Hg] [facility]ive [facility] Heart rate 2020-08-15 21:43:00 113 /min [facility] Body temperature 2020-08-15 21:43:00 36.94 Odalys [facility] Body height 2020-08-15 21:43:00 152.4 cm [facility] Body weight 2020-08-15 21:43:00 67.132 kg [facility] BMI 2020-08-15 21:43:00 28.90 kg/m2 [facility] Systolic blood 2020-06-20 15:32:00 147 mm[Hg] [facility]iver [facility] Diastolic blood 2020-06-20 15:32:00 91 mm[Hg] Unive [facility] Heart rate 2020-06-20 15:32:00 90 /min [facility] Body temperature 2020-06-20 15:32:00 37.39 Odalys [facility] Body height 2020-06-20 15:32:00 154.9 cm [facility] Body weight 2020-06-20 15:32:00 67.132 kg [facility] BMI 2020-06-20 15:32:00 27.96 kg/m2 [facility] Procedures Procedure Date / Time Performed Performing Clinician Curt antoine MR LUMBAR SPINE WO 2021-05-24 20:47:00 Ibrahima Sommer [facility] CONTRAST [facility] DEXA AXIAL (HIP AND 2021-05-24 20:07:00 Requisition, Paper [facility] SPINE) Medical Branch XR ANKLE 3+ VW RIGHT 2021-02-26 22:04:45 Zana Cabrera [facility] ASSIGNMENT OF BENEFITS 2021-02-26 21:30:23 Doctor Unassigned, No [facility] Name [facility] POCT URINALYSIS 2021-02-08 00:00:00 Damian Billy [facility] EXTERNAL PROVIDER 2021-01-15 05:01:00 Doctor Unassigned, No [facility] RECORDS Name [facility] XR ANKLE <3 VW RIGHT 2020-12-11 19:17:32 Joey Castaneda [facility] POCT URINALYSIS 2020-08-15 00:00:00 Damian Billy [facility] Plan of Care Planned Activity Planned Date Details Comments Source Future Scheduled 2020-05-[address] [facility] - Test 00:00:00 (#1) [code = [facility] INFLUENZA VACCINE (#1)] Future Scheduled [address] [facility] Test 00:00:00 (procedure) [code = [facility] 15472174] Future Scheduled [address] [facility] Test 00:00:00 malignant neoplasm Medical C enter of cervix (procedure) [code = 856124042] Future Scheduled [address] [facility] Test 00:00:00 malignant neoplasm Medical C enter of breast (procedure) [code = 076201090] Future Scheduled [address] [facility] Test 00:00:00 malignant neoplasm Medical C enter of colon (procedure) [code = 216704240] Encounters Start End Encounter Admission Attending Care Care Encounter Source Date/Time Date/Time Type Type Clinicians Facility Department ID 2021-07-30 2021-07-30 Outpatient ZIGGY DAVIS [facility] [id number] Univers 13:30:00 13:30:00 [facility] [id number] [facility] 2021-07-30 2021-07-30 Outpatient R ZIGGY MEJIA [facility] [id number] Univers 13:30:00 13:30:00 ZIGGY MEJIA [facility] 2021-07-18 2021-07-18 Outpatient R GEORGE TSAIHI [facility] [id number] Univers 10:00:00 10:00:00 [id number] [facility] 2021-07-18 2021-07-18 [facility] [id number] Univers 10:00:00 10:00:00 [facility] 2021-07-15 2021-07-15 [facility] 1.2.840.114 [id number] Univers 00:00:00 00:00:00 [facility] HEALTH [id number] it y of [place] [id number] Shawn as MICAH?BLEA [phone] [address] OFFICE [facility] 2021-07-10 2021-07-10 Telephone [facility] 1.2.840.114 [id number] Univers 00:00:00 00:00:00 [facility] HEALTH [id number] it y of [place] [id number] Shawn as MICAH?BLEA [phone] [address] OFFICE [facility] 2021-07-09 2021-07-09 Telephone [facility] 1.2.840.114 [id number] Univers 00:00:00 00:00:00 Damian HEALTH [id number] it y of [place] 4.2.7.2.686 Shawn as MICAH?BLEA [phone] [address] OFFICE [facility] 2021-06-03 2021-06-03 [facility] 1.2.840.114 [id number] Univers 00:00:00 00:00:00 [facility] Health [id number] it y of [place] 4.2.7.2.686 Shawn as Micah?Blea [phone] Dc brandon millard 044 [facility] Office [facility] 2021-06-03 2021-06-03 Telephone [facility] 1.2.840.114 [id number] Univers 00:00:00 00:00:00 Ibrahima [place] [id number] it[place] [phone] Dc brandon esteban 092 [facility] 2021-05-27 2021-05-27 Telephone [facility] 1.2.840.114 [id number] Univers 00:00:00 00:00:00 Ibrahima [facility] [id number] ity of [place] 4.2.7.2.686 Shawn as Micah?Blea [phone] Dc brandon millard 092 [facility] 2021-05-24 2021-05-24 [facility] 1.2.607.351 [id number] Univers 13:57:39 23:59:00 Encounter Ibrahima [place] 350.1.13.10 it[place] [phone] [facility] [address] 2021-05-24 2021-05-24 Outpatient IBRAHIMA HERRERA [facility] [id number] Univers 14:00:00 14:00:00 IBRAHIMA SOMMER [id number] ity [facility] 2021-05-24 2021-05-24 Outpatient Matthew CAMARENAIBRAHIMA Antoine [facility] [id number] Univers 13:56:37 13:56:37 ROS IBRAHIMA ity [facility] 2021-05-24 2021-05-24 [facility] [id number] Univers 13:56:37 13:56:37 Encounter Ibrahima [place] [id number] ity [place] [phone] [facility] 8[address] 2021-05-20 2021-05-20 Outpatient R ROS IBRAHIMA [facility] [id number] Univers 00:00:00 00:00:00 IBRAHIMA SOMMER [id number] [facility] 2021-05-13 2021-05-13 Outpatient Matthew CAMARENAGoyo IBRAHIMA [facility] [id number] Univers 10:15:00 10:15:00 IBRAHIMA SOMMER [id number] [facility] 2021-05-13 2021-05-13 Outpatient IBRAHIMA HERRERA [facility] [id number] Univers 00:00:00 00:00:00 IBRAHIMA SOMMER [facility] 2021-05-03 2021-05-[address] [facility] 1.2.840.114 [id number] Univers 00:00:00 00:00:00 [facility] [id number] it y of [place] 4.2.7.2.686 Shawn as Professio [phone] Dc dic[address] Office Building One 2021-04-23 2021-04-23 Office Ros [facility] 1.2.840.114 [id number] Univers 12:51:35 13:28:39 Visit Ibrahima [facility] 350.1.13.10 ity of [place] 4.2.7.2.686 Shawn as Micah?Blea [phone] Dc dical ey 092 [facility] Office Building 2021-04-23 2021-04-23 Outpatient IBRAHIMA HERRERA [facility] [id number] Univers 11:20:00 11:20:00 IBRAHIMA SOMMER [id number] [facility] 2021-04-23 2021-04-23 Outpatient IBRAHIMA HERRERA [facility] [id number] Univers 11:20:00 11:20:00 IBRAHIMA SOMMER [facility] 2021-04-16 2021-04-16 Outpatient IBRAHIMA HERRERA [facility] [id number] Univers 10:40:00 10:40:00 IBRAHIMA SOMMER [id number] [facility] 2021-04-16 2021-04-16 Outpatient IBRAHIMA HERRERA [facility] [id number] Univers 10:40:00 10:40:00 IBRAHIMA SOMMER [facility] 2021-03-28 2021-03-28 Outpatient R [facility] [id number] Univers 11:00:00 11:00:00 [id number] [facility] 2021-03-28 2021-03-28 Outpatient R ROSIBRAHIMA DIOR [facility] [id number] Univers 11:00:00 11:00:00 ROSIBRAHIMA Antoine [facility] 2021-03-22 2021-03-22 [facility] 1.2.840.114 [id number] Univers 00:00:00 00:00:00 [facility] Health 350.1.13.10 it y of [place] 4.2.7.2.686 Shawn as Professio [phone] [address] Office [facility] One 2021-03-22 2021-03-22 [facility] 1.2.840.114 [id number] 00:00:00 00:00:00 [facility] Health [id number] [place] 4.2.7.2.686 Professio [phone] [place] [address] Office [facility] One 2021-03-21 2021-03-21 [facility] 1.2.840.114 [id number] Univers 00:00:00 00:00:00 [facility] Health [id number] it y of [place] 4.2.7.2.686 Shawn as Professio [phone] [address] Office Building One 2021-03-21 2021-03-21 [facility] 1.2.840.114 [id number] 00:00:00 00:00:00 [facility] Health 350.1.13.10 [place] 4.2.7.2.686 Professio [phone] [place] [address] Office Building One 2021-03-11 2021-03-11 Outpatient R RADIOLOGY [facility] [id number] Univers 11:20:00 11:20:00 [id number] [facility] 2021-03-06 2021-03-06 Outpatient R RADIOLOGY [facility] [id number] Univers 00:00:00 00:00:00 [id number] ity [facility] 2021-02-26 2021-02-26 [facility] 1.2.674.400 [id number] Univers 16:37:25 23:59:00 Encounter Ibrahima [place] 350.1.13.10 it[place] [phone] [place] [address] [place] 2021-02-26 2021-02-26 [facility] 1.2.840.114 [id number] Univers 16:36:33 16:36:33 Encounter Zana Jose Alfredo [place] 350.1.13.10 ity of [place] [phone] [address] 2021-02-26 2021-02-26 [facility] 1.2.076.405 [id number] Univers 16:36:21 16:36:21 Encounter Ibrahima [place] 350.1.13.10 ity of [place] [phone] [address] 2021-02-26 2021-02-26 [facility] 1.2.840.114 [id number] Univers 14:45:21 15:57:07 Visit Ibrahima [place] 350.1.13.10 it[place] [phone] Dc dical [facility] 2021-02-26 2021-02-26 Office [facility] 1.2.840.114 [id number] 14:45:21 15:57:07 Visit Ibrahima D[place] 350.1.13.10 [place] 4.2.7.2.686 Professio [phone] [facility] 2021-02-26 2021-02-26 Outpatient R IBRAHIMA SOMMER [facility] [id number] Univers 15:00:00 15:00:00 ROS, IBRAHIMA [id number] ity [facility] 2021-02-26 2021-02-26 Outpatient R IBRAHIMA SOMMER [facility] [id number] Univers 15:00:00 15:00:00 IBRAHIMA SOMMER ity of [facility] 2021-02-26 2021-02-26 Orders Doctor DONNA 1.2.840.114 [id number] Univers 00:00:00 00:00:00 Only Unassigned, JONATHAN 350.1.13.10 ity of [facility] 4.2.7.2.686 Shawn as [phone] [address] 2021-02-08 2021-02-08 Office [facility] 1.2.840.114 [id number] Univers 11:00:38 11:41:35 Visit [facility] 350.1.13.10 it y of [place] 4.2.7.2.686 Shawn as Professio [phone] Dc dical nal [address] Office [facility] One 2021-02-08 2021-02-08 [facility] [id number] Univers 11:00:00 11:00:00 DAMIAN [id number] [facility] 2021-02-08 2021-02-08 [facility] [id number] Univers 11:00:00 11:00:00 DAMIAN ity [facility] 2021-02-06 2021-02-06 Telephone [facility] 1.2.840.114 [id number] Univers 00:00:00 00:00:00 [facility] 350.1.13.10 it y of [place] 4.2.7.2.686 Shawn as Professio [phone] Dc dical nal [address] Office [facility] One 2021-01-15 2021-01-15 Orders Doctor DONNA 1.2.840.114 [id number] Univers 00:00:00 00:00:00 Only Unassigned, JONATHAN 350.1.13.10 ity of [facility] 4.2.7.2.686 Shawn as [phone] [address] 2020-12-27 2020-12-[address] [facility] 1.2.840.114 [id number] Univers 00:00:00 00:00:00 [facility] 350.1.13.10 it y of [place] 4.2.7.2.686 Shawn as Professio [phone] Me dical nal [address] Office Building One 2020-12-13 2020-12-13 Case Radha Hanson 1.2.840.114 [id number] Univers 00:00:00 00:00:00 Management Margie Simmons 350.1.13.10 ity [place] [phone] [facility] [address] 2020-12-11 2020-12-11 Hospital [facility] 1.2.840.114 [id number] Univers 14:17:31 23:59:00 Encounter [facility] 350.1.13.10 ity of Surgical 4.2.7.2.686 Shawn as Specialti [phone] Me dical es 809 [facility] 2020-12-11 2020-12-11 Office [facility] 1.2.840.114 [id number] Univers 14:05:22 14:20:22 Visit [facility] 350.1.13.10 it y of Surgical 4.2.7.2.686 Shawn as Specialti [phone] Me dical es 198 [facility] 2020-12-11 2020-12-11 Outpatient Matthew CASTANEDA [facility] [id number] Univers 13:45:00 13:45:00 JOEY [id number] [facility] 2020-12-11 2020-12-11 Outpatient Matthew CASTANEDA [facility] [id number] Univers 13:45:00 13:45:00 JOEY [facility] 2020-12-05 2020-12-[address] [facility] [id number] Univers 13:15:00 13:15:00 JOEY [id number] [facility] 2020-12-05 2020-12-05 Outpatient Matthew CASTANEDA [facility] [id number] Univers 13:15:00 13:15:00 [facility] 2020-12-05 2020-12-05 Telephone Deborah [facility] 1.2.840.114 [id number] Univers 00:00:00 00:00:00 Zana Veliz [facility] 350.1.13.10 it y of Surgical 4.2.7.2.686 Shawn as Specialti [phone] Dc dical es [address] [place] 2020-11-14 2020-11-14 Outpatient Matthew BILLY [facility] [id number] Univers 15:00:00 15:00:00 DAMIAN [id number] [facility] 2020-11-09 2020-11-09 Laboratory Lab, Adc Fam Pob I [facility] 1.2. 840.114 [id number] Univers 15:05:03 15:25:03 Only Donna Carrasquillo [facility] 350.1.13.10 ity of [place] 4.2.7.2.686 Shawn as Professio [phone] Dc dical nal [address] Office Building One 2020-11-09 2020-11-[address] [facility] 1.2.840.114 [id number] Univers 14:17:20 14:32:20 Visit [facility] 350.1.13.10 it y of [place] 4.2.7.2.686 Shawn as Professio [phone] Dc dical nal [address] Office [facility] One 2020-11-09 2020-11-09 Outpatient Matthew BILLY [facility] [id number] Univers 14:15:00 14:15:00 DAMIAN [id number] [facility] 2020-11-09 2020-11-09 [address] [facility] [id number] Univers 14:15:00 14:15:00 [facility] 2020-11-05 2020-11-[address] [facility] 1.2.840.114 [id number] Univers 00:00:00 00:00:00 [facility] 350.1.13.10 it y of [place] 4.2.7.2.686 Shawn as Professio [phone] [address] 2020-10-03 2020-10-03 Outpatient [facility] [id number] M-[id number] Univers 11:00:00 11:00:00 DAMIAN [id number] [facility] 2020-09-18 2020-09-[address] [facility] 1.2.840.114 [id number] Univers 00:00:00 00:00:00 [facility] 350.1.13.10 it y of [place] 4.2.7.2.686 Shawn as Professio [phone] [address] 2020-08-17 2020-08-17 Telephone [facility] 1.2.840.114 [id number] Univers 00:00:00 00:00:00 [facility] 350.1.13.10 it y of [place] 4.2.7.2.686 Shawn as Professio [phone] [address] 2020-08-15 2020-08-15 Office [facility] 1.2.840.114 [id number] Univers 15:29:43 16:05:45 Visit [facility] 350.1.13.10 it y of [place] 4.2.7.2.686 Shawn as Professio [phone] [address] 2020-08-15 2020-08-15 Out[facility] [id number] M-20 Univers 15:30:00 15:30:00 DAMIAN [id number] [facility] 2020-08-15 2020-08-15 Outpatient R [facility] [id number] Univers 15:30:00 15:30:00 [facility] 2020-08-15 2020-08-15 Telephone [facility] ..840.114 [id number] Univers 00:00:00 00:00:00 [facility] 350.1.13.10 it y of [place] 4.2.7.2.686 Shawn as Professio [phone] [address] Office [facility] 2020-07-20 2020-07-20 Outpatient R SILVIO [facility] [id number] Univers 10:00:00 10:00:00 GEORGINA ity [facility] 2020-07-20 2020-07-20 Outpatient R SILVIO [facility] [id number] Univers 10:00:00 10:00:00 GEORGINA itcristela [facility] 2020-07-18 2020-07-18 Outpatient R WENCESLAO [facility] [id number] Univers 14:15:00 14:15:00 DAMIAN [id number] ity [facility] 2020-07-18 2020-07-18 Outpatient R WENCESLAO [facility] [id number] Univers 14:15:00 14:15:00 DAMIAN cristela [facility] 2020-07-04 2020-07-04 Outpatient R WENCESLAO [facility] [id number] Univers 09:30:00 09:30:00 [facility] 2020-07-04 2020-07-04 Outpatient R WENCESLAO [facility] [id number] Univers 09:30:00 09:30:00 DAMIAN [facility] 2020-06-20 2020-06-20 Medical Assistant Prn Lab, Adc Fam Pob I [facility] 1.2. 840.114 [id number] Univers 11:09:56 11:18:42 Visit Damian Billy arti [facility] 350.1.13 .10 ity of [place] 4.2.7.2.686 Shawn as Professio [phone] Dc dical nal 044 [facility] 2020-06-20 2020-06-20 Office Wenceslao [facility] 1.2.840.114 [id number] Univers 10:10:47 10:40:47 Visit Damian [facility] 350.1.13.10 it y of [place] 4.2.7.2.686 Shawn as Professio [phone] Dc dical nal 044 [facility] 2020-06-20 2020-06-20 Outpatient R WENCESLAO [facility] [id number] M-20 Univers 10:15:00 10:15:00 DAMIAN [id number] [facility] 2020-06-20 2020-06-20 Out[facility] [id number] Univers 10:15:00 10:15:00 DAMIAN [facility] 2020-05-21 2020-05-21 Outpatient [facility] [id number]00 [facility] Clinics 2020-05-21 2020-05-21 Outpatient STLMLC [facility] [id number] [facility]00 [facility] 2018-11-08 2018-11-08 [facility] [id number] 11:45:00 11:45:00 [address] [place] [facility] [address] [facility] Medicine [facility] Results Test Test Test Results Result Source Description Time Comments Comments XR ANKLE 3+ VW 2021-01- Distal fibular hardware [facility] 29 fixation without [place] Me dical 22:53:41 complication.XR ANKLE 3+ Branch VW RIGHT INDICATION: Right ankle painful hardware COMPARISON: 12/11/2020 FINDINGS: Hardware fixation of the distal fibula is unchanged in alignment andwithout complication. The ankle mortise is well aligned. Mild periarticularosteopenia is noted. [facility], Radiant Results Inft User - 02/26/2021 5:54 PM CDT XR ANKLE 3+ VW RIGHTINDICATION: Right ankle painful hardware COMPARISON: 12/11/2020FINDINGS:Hardware fixation of the distal fibula is unchanged in alignment andwithout complication. The ankle mortise is well aligned. Mild periarticularosteopenia is noted.IMPRESSIONDistal fibular hardware fixation without complication. POCT URINALYSIS W SPECIFIC GRAVITY 2021-02-08 16:39:00 Test Item Value Reference Range Interpretation Comme nts POCT U SP GRAV (test code = 3255) 1.010 mg/dl 1.005-1.025 POCT PH U (test code = 3254) 7 mg/dl 5-8 POCT U LEUK EST (test code = 3263) + Negative - Negative POCT U NIT (test code = 3262) neg Negative - Negative POCT U PROT (test code = 3259) trace Negative - Negative POCT U GLU (test code = 3256) Negative - Negative POCT U KETONE (test code = 3258) neg Negative - Negative POCT U UROBILI (test code = 3260) normal 0.2-1 POCT U BILI (test code = 3261) neg Negative - Negative POCT U BLD (test code = 3257) trace Negative - Negative POCT U COLOR (test code = 3266) dark POCT U APPEAR (test code = 3267) clear [facility] URINALYSIS W SPECIFIC [id number] 16:39:00 Test Item Value Reference Range Interpretation Comments POCT U SP GRAV (test code = 1.010 mg/dl 1.005-1.025 3255) POCT PH U (test code = 3254) 7 mg/dl 5-8 POCT U LEUK EST (test code = + Negative - Negative 3263) POCT U NIT (test code = 3262) neg Negative - Negative POCT U PROT (test code = trace Negative - Negative 3259) POCT U GLU (test code = 3256) Negative - Negative POCT U KETONE (test code = neg Negative - Negative 3258) POCT U UROBILI (test code = normal 0.2-1 3260) POCT U BILI (test code = neg Negative - Negative 3261) POCT U BLD (test code = 3257) trace Negative - Negative POCT U COLOR (test code = dark 3266) POCT U APPEAR (test code = clear 3267) [facility] V[facility] [id number] 19:41:03 Status post open reduction internal fixation she has a lateral 7-hole plate and 6 screws, her fracture is well-healed her ankle mortise is nicely balanced her hardware is intact there are no signs of loosening or erosion around the [facility]Un[facility]RAVITY 2020-08-15 22:12:00 Test Item Value Reference Range Interpretation Comments POCT U SP GRAV (test code = 1.000 mg/dl 1.005-1.025 A 3255) POCT PH U (test code = 3254) 7 mg/dl 5-8 POCT U LEUK EST (test code = trace Negative - Negative 3263) POCT U NIT (test code = 3262) neg Negative - Negative POCT U PROT (test code = trace Negative - Negative 3259) POCT U GLU (test code = 3256) neg Negative - Negative POCT U KETONE (test code = neg Negative - Negative 3258) POCT U UROBILI (test code = normal 0.2-1 3260) POCT U BILI (test code = neg Negative - Negative 3261) POCT U BLD (test code = 3257) trace Negative - Negative POCT U COLOR (test code = pale 3266) POCT U APPEAR (test code = clear 3267) Lab Interpretation (test code Abnormal = 67561-2) [facility] BY [id number] 16:25:00Medical Cytology Report Case: [id number] Authorizing Provider: Holly Mckeon Collected: 12/28/2018 0903 MD Delores OrderingLocation: [facility] OMT Endoscopy Received: 12/28/2018 1103 Services Pathologist: Salvador Begum MD Specimen: Pancreas PANCREAS CYST FNA BY CLINICIAN (CYTOSPINS AND CELL BLOCK OF ASPIRATE): - NEGATIVE FOR MALIGNANCY - The mucin stain is negative Signing Pathologist Direct Phone Line: [phone] signed by Salvador Begum MD on 12/29/2018 at 4:25 PMThe mucin stain is negative and the control slide shows positive staining as expected.[id number], 10577, 89822Jeht cysts in the pancreas, largest measuring 2.0 cmPANCREAS CYST FNA27 mls in cytorich red; 4 cytospins, 1 mucin stain, cell blockCollected: [id number]: [id number] interpretation of this case included the use of immunohistochemistry or special stains. MUCINImmunohistochemistry technical testing was performed at [facility], Pathology Laboratory where it was developed [...] qualified to perform high complexity clinical laboratory testing.[facility], Department of Pathology, [address] [place] [address], [place] [address], [facility] of [facility], [address] [place] [id number], [facility], [facility] of [facility], [address] [place] [address], SWYBVF [id number] 10:28:00Surgical Pathology Report Case: [id number] Authorizing Provider: Holly Mckeon Collected: 12/28/2018 0924 MD Delores OrderingLocation[facility] Received: 12/28/2018 1253 Services Pathologist: Kurtis Luna MD Specimen: Ampulla PART A AMPULLARY BIOPSY:PARTIALLY DENUDED NON-NEOPLASTIC SMALL INTESTINAL MUCOSA WITHOUT SIGNIFICANT HISTOPATHOLOGIC ALTERATION.NEGATIVE FOR DYSPLASIA OR INVASIVE CARCINOMA. Signing Pathologist Direct Phone Line: [phone] signed by Kurtis Luna MD on 12/29/2018 at 10:28 [id number] pancreatic lesionampullaThe container is labeled "ampulla" and consists of a single piece of leung-white tissue measuring 2 x 1 x 1 mm and a single piece of feathery white tissue measuring approximately thesame dimension submitted entirely in cassette A. TW/bcPERFORMEDAMYLASE, BODY [id number] 13:26:00 Test Item Value Reference Range Interpretation Comments AMYLASE FLUID (BEAKER) (test code = > U/L 350) Absence of reference range indicates that normals have not been defined.Assay performance has not been validated for this type of specimen.FINE NEEDLE ASPIRATE (FNA) [id number] 13:00:00 Test Item Value Reference Range Interpretation Comments CYTOLOGY RESULT POINTER See Separate Report (BEAKER) (test code = 2629)
[2021-08-12 14:55] LABS: Urine Blood Trace-intact (Negative); Urine Glucose Negative (Negative); Urine Protein Negative (Negative); Urine Specific Gravity 1.015 (1.005-1.030); Urine pH 6.5 (5.0-7.0)
[2021-08-12 15:33] LABS: Urine Bacteria <20 /HPF (<20); Urine RBC NONE SEEN /HPF (NONE SEEN)
[2021-08-12] MEDS ORDERED: dexAMETHasone 10 MG/ML VIAL ONE (18:42)
[2021-08-12] MEDS ORDERED: ONDANSETRON 4 MG (ODT) TAB ONE (18:42)
[2021-08-12] MEDS ORDERED: MORPHINE 4 MG/ML SYR ONE (18:42)
[2021-08-12] MEDS ORDERED: LIDOCAINE 4% PATCH ONE (18:43)
--- NOTE | 2021-08-12 19:28 | ER ---
Nurse's Notes [facility] Name: Mila Whiting Age: 65 yrs Sex: Female : 1955 Arrival Date: 08/12/2021 Time: 13:13 Bed 5 Private MD: Diagnosis: Low back pain-Chronic Presentation: 08/12 14:01 Chief complaint: Patient states: "I am not feeling well, and have not for quite some jh5 time; I keep getting UTI on and off for last couple of months about every 3 weeks. I have been on antibiotics but it's not helping. I sleep with a cpap but everything is going downhill. I have some GI problems for years too. "My urine smells so bad and I don't have much urine when I do go". Coronavirus screen: Vaccine status: Patient reports receiving the 2nd dose of the covid vaccine. Coronavirus screen: Client denies travel out of the [place] in the last 14 days. Ebola Screen: Patient negative for fever greater than or equal to 101.5 degrees Fahrenheit, and additional compatible Ebola Virus Disease symptoms Patient denies exposure to infectious person. Patient denies travel to an Ebola-affected area in the 21 days before illness onset. Initial Sepsis Screen: Does the patient meet any 2 criteria? HR > 90 bpm. Does the patient have a suspected source of infection? Yes:. Risk Assessment: Do you want to hurt yourself or someone else? Patient reports no desire to harm self or others. Onset of symptoms was July 2021. 14:01 Method Of Arrival: Ambulatory [facility] 14:01 Acuity: CRISTY 3 jh5 Triage Assessment: 14:07 General: Appears in no apparent distress. uncomfortable, obese, Behavior is calm, jh5 cooperative, appropriate for age, anxious. Pain: Complains of pain in back. Historical: - Allergies: 14:06 liquid magnesium; [facility] 14:06 Stadol; jh5 - PMHx: 14:06 spinal stenosis; Hypertension; acid reflux; Anxiety; COPD; Home O2 4 Lpm; 5 - PSHx: 14:06 Cholecystectomy; hernia repair; right ankle sx; [facility] - Immunization history:: Adult Immunizations up to date. - Social history:: Smoking status: Patient denies any tobacco usage or history of. Screenin:05 Abuse screen: Denies threats or abuse. Nutritional screening: No deficits noted. vg1 Tuberculosis screening: No symptoms or risk factors identified. Fall Risk No fall in past 12 months (0 pts). No secondary diagnosis (0 pts). No IV (0 pts). Ambulatory Aid- None/Bed Rest/Nurse Assist (0 pts). Gait- Normal/Bed Rest/Wheelchair (0 pts) Mental Status- Oriented to own ability (0 pts). Total Valdes Fall Scale indicates No Risk (0-24 pts). Assessment: 18:03 General: Appears in no apparent distress. ill, Behavior is cooperative. Pain: Complains vg1 of pain in Right lower back Pain currently is 10 out of 10 on a pain scale. Noted to be grimacing, guarding, moaning. Neuro: Level of Consciousness is awake, alert, obeys commands, Oriented to person, place, time, situation, Reports headache. Cardiovascular: Patient's skin is warm and dry. Respiratory: Airway is patent Respiratory effort is even, unlabored. GI: Reports loss of appetite. : Reports odor to urine. EENT: No signs and/or symptoms were reported regarding the EENT system. Derm: Skin is intact, is healthy with good turgor. Musculoskeletal: Circulation, motion, and sensation intact. 19:20 Reassessment: Patient appears in no apparent distress at this time. Patient and/or iw family updated on plan of care and expected duration. Pain level reassessed. Patient is alert, oriented x 3, equal unlabored respirations, skin warm/dry/pink. 19:39 General: Reports " I just cannot believe I am coming up in here and leaving with more tw5 pain.". 20:09 General: Behavior is agitated, anxious. 5 Vital Signs: 14:01 Pulse 112; Resp 16; Pulse Ox 98% ; Weight 64.41 kg; Height 5 ft. 1 in. (154.94 cm); 5 14:09 BP 145 / 79; 5 15:22 Temp 97.9; ss 14:01 Body Mass Index 26.83 (64.41 kg, 154.94 cm) [facility] ED Course: 13:13 Patient arrived in ED. ds1 14:06 Triage completed. [facility] 15:03 Urine Microscopic Only Sent. [facility] 15:48 Urine collected:. [facility] 17:26 Judson Roper NP is PHCP. pm1 17:26 Stephan Estes MD is Attending Physician. pm1 17:40 Patient has correct armband on for positive identification. Bed in low position. Call [facility] light in reach. Pulse ox on. NIBP on. 17:42 Adrianne Arriola RN is Primary Nurse. vg1 18:05 Arm band placed on. vg1 19:20 Primary Nurse role handed off by Adrianne Arriola RN tw5 19:20 Roselyn Good is Primary Nurse. tw5 19:20 No provider procedures requiring assistance completed. Patient did not have IV access iw during this emergency room visit. 19:39 Door closed. Moved to private room. Warm blanket given. Verbal reassurance given. tw5 20:09 Awaiting: awaiting a ride home. tw5 Administered Medications: 18:50 Drug: Decadron (dexamethasone) 10 mg Route: IM; Site: left vastus lateralis; iw 19:39 Follow up: Response: No adverse reaction tw5 18:50 Drug: Ondansetron 4 mg Route: PO; iw 19:39 Follow up: Response: No adverse reaction tw5 18:55 Drug: morphine 4 mg Route: IM; Site: left vastus lateralis; iw 19:38 Follow up: Response: Pain is unchanged, physician notified tw5 19:00 Drug: Lidoderm Patch 5 % (700 mg/patch) 1 patches Route: Topical; Site: affected area; iw 19:38 Follow up: Response: No adverse reaction tw5 20:05 Drug: morphine 4 mg Route: IM; Site: right gluteus; tw5 20:09 Follow up: Response: No adverse reaction; Medication administered at discharge. tw5 Outcome: 19:27 Discharge ordered by . pm1 20:09 Patient left the ED. tw5 Signatures: Anaya Obregon ds1 Delia Marcos RN RN Lary Horne RN RN Judson Roper NP PARTNER MANAGER pm1 Jenna Mederos 5 Adrianne Arriola RN RN [facility] Roselyn Good tw5 Nilda Morales RN RN 5 Corrections: (The following items were deleted from the chart) 14:09 14:01 Chief complaint: Patient states: "I am not feeling well, and have not for quite jh5 some time; I keep getting UTI on and off for last couple of months about every 3 weeks. I have been on antibiotics but it's not helping. I sleep with a cpap but everything is going downhill. I have some GI problems for years too jh5
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
[2021-08-12] MEDS ORDERED: MORPHINE 2 MG/ML SYR ONE (19:56)
[2021-08-12 20:31] VITALS: O2SAT 98
[2021-08-12 20:36] VITALS: BP 145/79
[2021-08-12 20:37] VITALS: TEMP 97.9
== END 2021-08-12 20:09 | disposition home or self-care (01) ==
LOC: ER 13:09
DX: M54.50 Low back pain, unspecified (principal); Z88.5 Allergy status to narcotic agent; Z91.048 Other nonmedicinal substance allergy status
CPT/HCPCS: 96372; 99283; J1100; J2270; 81003; 81015

== ENCOUNTER 2021-10-28 15:44 | Inpatient (IN) | payer OTHER ==
--- OUTSIDE RECORDS SUMMARY | 2021-10-28 15:49 | XMS REPORT | Continuity of Care Document ---
:1955 Author Organization [facility] t Address [address] [place] [address] Care Team Providers Name Role Phone Victor Hugo Justice MD Primary Care Physician Jose Alfredo Guido Attending Clinician Unavailable Victor Hugo Billy MD Attending Clinician Doctor Unassigned, Name Attending Clinician Unavailable VICTOR HUGO BILLY Attending Clinician Unavailable ROBERTO Attending Clinician Unavailable ROBERTO Attending Clinician Unavailable ANÍBAL SOMMER Attending Clinician Unavailable ANÍBAL SOMMER Attending Clinician Unavailable RADIOLOGY Attending Clinician Unavailable Aníbal Sommer MD Attending Clinician Broderick CASTANEDA Attending Clinician Unavailable LINDA MCKEON Attending Clinician Unavailable LINDA MCKEON Admitting Clinician Unavailable Payers Payer Name Policy Type Policy Number Effective Date Expiration Date S ource MEDICARE PART A [id number] 2020 2020 \\T\\ B 00:00:00 00:00:00 KAMRON RAMIREZ [id number] 2020 2021 PLUS CHOICE 00:00:00 00:00:00 [place]ID OF [place] [id number] 2020 2021 00:00:00 00:00:00 Problems Condition Condition Condition Status Onset Resolution Last Treating Co mments Source Name Details Category Date Date Treatment Clinician Date COPD COPD Disease Active Univers exacerbati exacerbati 12-29 it y of on on 00:00: [place] 00 Medical Branch Symptomati Symptomati Disease Active U nivers c c 7-11 ity of men[place] female 00 Medi josé miguel climacteri climacteri Br anch c states c states Essential Essential Disease Active Uni vers hypertensi hypertensi 05 it y of on, benign on, benign [...] adverse 00:00: Medical reaction 00 Center s Magnesiu Propensi Active Anaphylaxis Liquid U nivers m ty to 3-05 form ity of adverse 00:00: [place] reaction Medical s Branch MAGNESIU DRUG Active High N/V Univers M INGREDI 3-05 ity of 00:00: [place] 00 Medical Branch Butorpha Propensi Active Anaphylaxis Seizures Univers nol ty to 6-05 per pt ity of Tartrate adverse 00:00: [place] reaction 00 Medical s Branch BUTORPHA DRUG Active High Unknown-Cmnt 0 Un nathen NOL INGREDI 6-05 ity of TARTRATE 00:00: 00 [facility] Stadol Adverse Active Info Not [facility] Reaction Available [facility] Magnesiu Adverse Active Info Not [facility] Reaction Available [facility] Social History Social Habit Start Date Stop Date Quantity Comments Source History of tobacco Cigarette Smoker University of use [facility] History SDOH University o f Alcohol Frequency [facility] History SDSC University o f Alcohol Std Drinks [facility] History [facility] University o f Alcohol Binge [facility] [place] [facility] Sex Assigned [facility] - [facility] Tobacco use and 2018-12-28 2018-12-[address] [facility] kes - exposure 00:00:00 00:00:00 [facility] Alcohol intake 2018-12-28 2018-12-[address] [facility] - 00:00:00 00:00:00 non-drinker of Medical nter alcohol (finding) Tobacco Comment 2018-12-27 2018-12-27 [facility] 00:[facility] 00:00:00 [facility] Cigarettes smoked 2015-12-30 2015-12-30 Univers ity of current (pack per 00:00:00 00:00:00 [facility] ) - Reported Branch Cigarette 2015-12-30 2015-12-30 University of pack-years 00:00:00 00:00:00 [facility] Alcohol Comment 2007-02-02 2007-02-02 social drinker Unive rsity of 00:00:00 00:00:00 [facility] Smoking Status Start Date Stop Date Source Former smoker 2018-12-28 00:00:00 2018-12-28 00:00:[address] [facility] - [facility] Medications Ordered Filled Start Stop Current Ordering Indication Dosage Frequency Signature Comments Components Source Medication Medication Date Date Medication? Clinician (SIG) Name Name AMLODIPINE Yes [id number] TAKE 1 Un nathen 5 mg tablet 2-14 TABLET BY ity of 00:00: MOUTH EVERY DAY Medical Branch diazePAM 2020- Yes [id number] 5mg Take 1 Uni vers (VALIUM) 5 2-31 tablet by ity of mg tablet 00:00: mouth 3 [place] 00 (three) Medical times Branch daily as needed for Anxiety. diazePAM 2020-08 Yes [id number] 5mg Take 1 Uni vers (VALIUM) 5 2-31 tablet by ity of mg tablet 00:00: mouth 3 00 (three) Medical times Branch daily as needed for Anxiety. diazePAM 2020-08 Yes [id number] 5mg Take 1 Uni vers (VALIUM) 5 2-31 tablet by ity of mg tablet 00:00: mouth 3 00 (three) Medical times Branch daily as needed for Anxiety. diazePAM 2020-08 Yes [id number] 5mg Take 1 Uni vers (VALIUM) 5 2-31 tablet by ity of mg tablet 00:00: mouth 3 00 (three) Medical times Branch daily as needed for Anxiety. ZENPEP 2020-08 Yes Univers 40,000-126, 2-14 ity of 000- 00:00: [place] 168,000 00 Medical unit CpDR Branch ZENPEP 2020-08 Yes Univers 40,000-126, 2-14 ity of 000- 00:00: [place] 168,000 00 Medical unit CpDR Branch ZENPEP 2020-08 Yes Univers 40,000-126, 2-14 ity of 000- 00:00: [place] 168,000 00 Medical unit CpDR Branch ZENPEP 2020-08 Yes Univers 40,000-126, 2-14 ity of 000- 00:00: [place] 168,000 00 Medical unit CpDR Branch diazePAM 2020-08- No [id number] 5mg Take 1 Un nathen (VALIUM) 5 1-16 12-31 tablet by ity of mg tablet 00:00: 00:00 [place] 3 [place] ([place] Medical times Branch daily. cefUROXime 2020-08- No [id number] 250mg Take 1 Univers 250 mg 1-09 12-31 tablet by ity of tablet 00:00: 00:00 mouth 2 [place] 00 :00 (two) Medical times Branch daily. pantoprazol 2020-08 Yes [id number] 40mg Take 1 Univers e 40 mg EC 0-04 tablet by ity of tablet 00:00: mouth [place] 00 daily. Medical Branch pantoprazol 2020-08 Yes [id number] 40mg Take 1 Univers e 40 mg EC 0-04 tablet by ity of tablet 00:00: mouth [place] 00 daily. Medical Branch pantoprazol 2020-08 Yes [id number] 40mg Take 1 Univers e 40 mg EC 0-04 tablet by ity of tablet 00:00: mouth daily. Medical Branch pantoprazol 2020-08 Yes [id number] 40mg Take 1 Univers e 40 mg EC 0-04 tablet by ity of tablet 00:00: mouth daily. Medical Branch cefUROXime 2020- No [id number] 500mg Take 1 Univers 500 mg 6-11 12-31 tablet by ity of tablet 00:00: 00:00 mouth 2 [place] 00 :00 (two) Medical times Branch daily. predniSONE Yes 5mg Take 5 mg Un nathen 5 mg tablet 4-13 by mouth. ity of 14:13: [address] predniSONE Yes 5mg Take 5 mg Un nathen 5 mg tablet 4-13 by mouth. ity of 14:13: [address] predniSONE Yes 5mg Take 5 mg Un nathen 5 mg tablet 4-13 by mouth. ity of 14:13: [address] predniSONE Yes 5mg Take 5 mg Un nathen 5 mg tablet 4-13 by mouth. ity of 14:13: [address] baclofen 10 Yes Univer s mg tablet 4-03 ity of 00:00: Medical Branch baclofen 10 0 Yes Univer s mg tablet 4-03 ity of 00:00: Medical [place] baclofen 10 0 Yes Univer s mg tablet 4-03 ity of 00:00: [facility] baclofen 10 0 Yes Univer s mg tablet 4-03 ity of 00:00: Medical Branch HYDROcodone Yes 1{tbl} Take 1 Un nathen -acetaminop 3-12 tablet by ity of hen 7.5-325 14:37: mouth 3 Shawn as mg per 07 (three) Medical tablet times Branch daily. OXYGEN-AIR Yes by Univers DELIVERY 3-12 Miscellane ity o f SYSTEMS 14:37: [place] MISC 07 [place] HYDROcodone Yes 1{tbl} Take 1 Un nathen -acetaminop 3-12 tablet by ity of hen 7.5-325 14:37: mouth 3 Shawn as mg per 07 (three) Medical tablet times Branch daily. OXYGEN-AIR Yes by Univers DELIVERY 3-12 Miscellane ity o f SYSTEMS 14:37: ous route. Tripp morgan [address] Branch HYDROcodone Yes 1{tbl} Take 1 Un nathen -acetaminop 3-12 tablet by ity of hen 7.5-325 14:37: mouth 3 [place] as mg per 07 (three) Medical tablet times Branch daily. OXYGEN-AIR Yes by Univers DELIVERY 3-12 Miscellane ity o f SYSTEMS 14:37: ous route. Tripp morgan [address] Branch HYDROcodone Yes 1{tbl} Take 1 Un nathen -acetaminop 3-12 tablet by ity of hen 7.5-325 14:37: mouth 3 Shawn as mg per 07 (three) Medical tablet times Branch daily. OXYGEN-AIR Yes by Univers DELIVERY 3-12 Miscellane ity o f SYSTEMS 14:37: ous route. Tripp morgan [address] Branch LORazepam 1 2020- No [id number] 1mg Take 1 Univers mg tablet 3-12 12-31 tablet by ity of 00:00: 00:00 mouth [...] DAY Med ical on Mist Branch amLODIPine 0 Yes [id number] 5mg Take 1 Un nathen 5 mg tablet 1-19 tablet by ity of 00:00: mouth [place] 00 daily. Medical Branch amLODIPine 0 Yes [id number] 5mg Take 1 Un nathen 5 mg tablet 1-19 tablet by ity of 00:00: mouth [place] 00 daily. Medical Branch amLODIPine 0 Yes [id number] 5mg Take 1 Un nathen 5 mg tablet 1-19 tablet by ity of 00:00: mouth [place] 00 daily. Medical Branch amLODIPine 2020-0 2022- No [id number] 5mg Take 1 U nivers 5 mg tablet 1-19 02-14 tablet by it y of 00:00: 00:00 mouth [place] 00 :00 daily. Medical Branch promethazin Yes 5mL Take 5 mL U nivers e-codeine 7-17 by mouth. ity o f 6.25-10 14:54: [place] mg/5 mL 38 Medical syrup Branch promethazin Yes 5mL Take 5 mL U nivers e-codeine 7-17 by mouth. ity o f 6.-10 14:54: [place] mg/5 mL 38 Medical syrup Branch promethazin Yes 5mL Take 5 mL U nivers e-codeine 7-17 by mouth. ity o f 6.25-10 14:54: [place] mg/5 mL 38 Medical syrup Branch promethazin Yes 5mL Take 5 mL U nivers e-codeine 7-17 by mouth. ity o f 6.2510 14:54: [place] mg/5 mL 38 Medical syrup Branch TIOTROPIUM Yes Inhale. Univ ers BROMIDE 7-17 ity of (SPIRIVA 14:52: [place] RESPIMAT 14 Medical INHALE) Branch MOMETASONE Yes Use in Univ ers FUROATE 7-17 each ity of (NASONEX 14:52: nostril. [place] NASAL) 14 Medical Branch TIOTROPIUM 0 Yes [...] ers BROMIDE 7-17 ity of (SPIRIVA 14:52: [place] RESPIMAT 14 Medical INHALE) Branch MOMETASONE Yes Use in Univ ers FUROATE 7-17 each ity of (NASONEX 14:52: nostril. [place] NASAL) 14 Medical Branch buprenorphi Yes APPLY [...] daily. Medi josé miguel 04 Center budesonide- 2019- Yes [...] Center capsule needed for Constipati on. psyllium Yes .52g Take 0.[address] [facility] 0.52 [...] Miscellane [facility]ukes - SYSTEMS 10:34: ous route. [facility] MIS 04 Center Butrans Butrans Yes Na [...] [facility] Yes Na Guido [address] Allergy Allergy [facility] [place] Na Guido [address] [...] [facility] Yes Na Guido [address] [facility] Protonix Protonix Yes Na Guido 1/[address] [facility] PredniSONE PredniSONE Yes Na Guido [address] [facility] Combivent Combivent Yes Na Guido not [facility] defined [facility] Immunizations Ordered Filled Immunization Date Status Comments Sour e Immunization Name Name SARS-COV-2 COVID-19 2021-08-30 Completed Unive rsity of MODERNA BOOSTER 00:00:00 [place] Med ical VACCINE Branch SARS-COV-2 COVID-19 2021-08-30 Completed Unive rsity of MODERNA BOOSTER 00:00:00 [place] Med ical VACCINE Branch SARS-COV-2 COVID-19 2021-08-30 Completed Unive rsity of MODERNA BOOSTER 00:00:00 [facility] ical VACCINE Branch SARS-COV-2 COVID-19 2021-08-30 Completed Unive rsity of MODERNA BOOSTER 00:00:00 [facility] Vital Signs Vital Name Observation Time Observation Value Comments Source Systolic blood 2021-08-30 17:34:00 153 mm[Hg] Univer sity of [place] pressure [facility] Diastolic blood 2021-08-30 17:34:00 78 mm[facility]Hg] [facility] Heart rate 2021-08-30 17:34:00 106 /min [facility] Body height 2021-08-30 17:34:00 154.9 cm [facility] Body weight 2021-08-30 17:34:00 67.132 kg [facility] BMI 2021-08-30 17:34:00 27.96 kg/m2 [facility] Procedures Procedure Date / Time Performing Clinician Source Performed MEDICATION CORRESPONDENCE 2021-09-11 06:01:00 Doctor Unassigned, [facility] [place] [facility] SARS-COV-2 COVID-19 2021-08-30 18:03:19 Damian Billy [facility] VACCINE BOOSTER,0.25ML,IM [place] [facility] l Branch (MODERNA) Plan of Care Planned Activity Planned Date Details Comments Source Future Scheduled 2020-05-[address] [facility] - Test 00:00:00 (#1) [code = [facility] INFLUENZA VACCINE (#1)] Future Scheduled [address] [facility] - Test 00:00:00 (procedure) [code = Medical Center 91324609] Future Scheduled [address] [facility] - Test 00:00:00 malignant neoplasm Medical C enter of cervix (procedure) [code = 058403116] Future Scheduled [address] - Test 00:00:00 malignant neoplasm Medical C enter of breast (procedure) [code = 151009924] Future Scheduled [address] [facility] - Test 00:00:00 malignant neoplasm Medical C enter of colon (procedure) [code = 280713623] Encounters Start End Encounter Admission Attending Care Care Encounter Source Date/Time Date/Time Type Type Clinicians Facility Department ID 2021-09-25 Outpatient [facility] [id number] 11:46:50 [id number] [facility] 2021-09-25 Outpatient [facility] [id number] 11:44:44 [id number] [facility] 2021-10-14 2021-10-14 [facility] [id number] Univers 00:00:00 00:00:00 [facility] [id number] it y of [facility] [id number] Shawn as PROFESSIO [phone] [address] ONE 2021-09-11 2021-09-11 Orders Doctor THOMPSON [id number] Univers 00:00:00 00:00:00 Only Unassigned, JONATHAN [id number] ity of [place] [facility] [id number] Shawn as [id number] [address] 2021-09-03 2021-09-03 [facility] [id number] Univers 00:00:00 00:00:00 [facility] [id number] it y of Edarti [place] [id number] Shawn as PROFESSIO [phone] [address] OFFICE BUILDING ONE 2021-08-30 2021-08-30 Outpatient R WENCESLAO [facility] [id number] Univers 13:00:00 13:52:57 DAMIAN [facility] 2021-08-30 2021-08-30 Office Wenceslao [facility] [id number] Univers 13:00:00 13:15:00 Visit [facility] [id number] it y of Victor Hugo [place] [id number] Shawn as RIZWANA?BLEA [id number] Ut [address] MEDICAL OFFICE BUILDING 2021-08-28 2021-08-28 Outpatient R WENCESLAO [facility] [id number] Univers 15:30:00 15:30:00 DAMIAN [facility] 2021-07-30 2021-07-30 Outpatient R ZIGGY MEJIA [facility] [id number] Univers 13:30:00 13:30:00 ZIGGY MEJIA [facility] 2021-05-24 2021-05-24 Outpatient R IBRAHIMA SOMMER [facility] [id number] Univers 13:56:37 13:56:37 IBRAHIMA SOMMER [facility] 2021-03-22 2021-03-22 [facility] [id number] 00:00:00 00:00:00 [facility] [id number] Victor Hugo [place] [id number] Professio [id number] [address] One 2021-03-21 2021-03-21 [facility] [id number] 00:00:00 00:00:00 [facility] [id number] Edarti [place] [id number] Professio [id number] [address] One 2021-03-11 2021-03-11 Outpatient R RADIOLOGY [facility] [id number] Univers 00:00:00 00:00:00 [id number] [facility] 2021-02-26 2021-02-26 Outpatient IBRAHIMA HERRERA [facility] [id number] Univers 15:00:00 15:57:07 IBRAHIMA SOMMER [facility] 2021-02-26 2021-02-26 Office Ros [facility] [id number] 14:45:21 15:57:07 Visit Ibrahima [place] [id number] Chan[place] [id number] Profsamirio [id number] [facility] 092 Building 2020-12-11 2020-12-11 Outpatient TONYA [facility] [id number] Univers 14:17:31 23:59:00 JOEY [facility] 2020-10-03 2020-10-03 Outpatient Matthew BILLY [facility] [id number] Univers 11:00:00 11:00:00 DAMIAN [id number] [facility] 2020-05-21 2020-05-21 Outpatient STLMLC STLMLC [id number] [facility] 2020-05-21 2020-05-21 Outpatient STLMLC STLMLC [id number] [facility] 2018-11-08 2018-11-08 [facility] [id number] 11:45:00 11:45:00 [facility] Results Test Description Test Time Test Comments Results Result [facility] e Comments FINE NEEDLE Medical Cytology Report ASPIRATION BY 1 CLINICIAN 16:25:00 Case: [id number] Authorizing Provider: Holly Mckeon Collected: 12/28/2018 09Glenis Estrella MD Ordering Location: [facility] Endoscopy Received: 12/28/2018 1103 Services Pathologist: Salvador Begum MD Specimen: Pancreas PANCREAS CYST FNA BY CLINICIAN (CYTOSPINS AND CELL BLOCK OF ASPIRATE): - NEGATIVE FOR MALIGNANCY - The mucin stain is negative Signing Pathologist Direct Phone Line: [phone] signed by Salvador Begum MD on 12/29/2018 at 4:25 PMThe mucin stain is negative and the control slide shows positive staining as expected.68064, 52357, 41394Ckyi cysts in the pancreas, largest measuring 2.0 cmPANCREAS CYST FNA27 mls in cytorich red; 4 cytospins, 1 mucin stain, cell blockCollected: [id number]: [id number] interpretation of this case included the use of immunohistochemistry or special stains. MUCINImmunohistochemistry technical testing was performed at [facility], Pathology Laboratory where it was [...] qualified to perform high complexity clinical laboratory testing.[facility], Department of Pathology, [address] [place] [address], [facility], [address] [place] [address], [facility], [facility], [address] [place] [address] 17697, TISSUE EXAM Surgical Pathology Report 1 10:28:00 Case: [id number] Authorizing Provider: Holly Mckeon Collected: 12/28/2018 0924 MD Delores Ordering Location: [facility] Endoscopy Received: 12/28/2018 1253 Services Pathologist: Kurtis Luna MD Specimen: Ampulla PART A AMPULLARY BIOPSY:PARTIALLY DENUDED NON-NEOPLASTIC SMALL INTESTINAL MUCOSA WITHOUT SIGNIFICANT HISTOPATHOLOGIC ALTERATION.NEGATIVE FOR DYSPLASIA OR INVASIVE CARCINOMA. Signing Pathologist Direct Phone Line: [phone] signed by Kurtis Luna MD on 12/29/2018 at 10:28 [id number] pancreatic lesionampullaThe container is labeled "ampulla" and [...] this type of specimen.FINE NEEDLE ASPIRATE (FNA) [id number] 13:00:00 Test Item Value Reference Range Interpretation Comments CYTOLOGY RESULT POINTER See Separate Report (BEROSHAN) (test code = 2629)
[2021-10-28 16:34] LABS: Urine Blood Trace-intact (Negative); Urine Glucose Negative (Negative); Urine Protein Negative (Negative); Urine Specific Gravity 1.015 (1.005-1.030)
[2021-10-28 16:46] LABS: Absolute Lymphocytes (CBC) 0.5 K/uL (0.7-4.9); Hematocrit 35.1 % (36.0-45.0); Lymphocytes % 8.3 % (15.3-44.8); MPV 8.4 fL (7.6-11.3); RBC Red Blood Cell Count 4.05 M/uL (3.86-4.86)
[2021-10-28 16:51] LABS: Protime INR 1.05
[2021-10-28 16:55] LABS: Urine Bacteria <20 /HPF (<20); Urine RBC <5 /HPF (NONE SEEN)
[2021-10-28 17:07] LABS: ALT/SGPT 25 U/L (12-78); AST/SGOT 15 U/L (15-37); Albumin 3.6 g/dL (3.4-5.0); Alkaline Phosphatase 69 U/L (45-117); BUN Blood Urea Nitrogen 5 mg/dL (7-18); Bilirubin Total 0.3 mg/dL (0.2-1.0); Glucose Level 125 mg/dL (74-106); Magnesium 1.8 mg/dL (1.8-2.4); NT PRO-BNP 21 pg/mL (<125); Potassium 4.3 mmol/L (3.5-5.1); Protein, Total 7.8 g/dL (6.4-8.2); Sodium Level 136 mmol/L (136-145)
[2021-10-28 17:08] LABS: Bicarbonate 43 mmol/L (21-32); Bilirubin Direct < 0.1 mg/dL (0-0.2)
[2021-10-28] MEDS ORDERED: ALBUTEROL 2.5 MG/3 ML NEB SOL ONE (17:40)
[2021-10-28] MEDS ORDERED: IPRATROPIUM BROM 0.5MG/2.5ML ONE (17:40)
[2021-10-28] MEDS ORDERED: METHYLPREDNISOLONE 125 MG INJ ONE (17:41)
[2021-10-28 17:56] LABS: Blood Morphology Comment NOTED (NOT SEEN); Platelet Estimate ADEQ; Poikilocytosis 1+; White Blood Cell Scan OK (OK)
--- NOTE | 2021-10-28 18:05 | ER ---
Nurse's Notes [facility] Name: Mila Whiting Age: 66 yrs Sex: Female : 1955 Arrival Date: 10/28/2021 Time: 15:45 Bed 23 Private MD: Diagnosis: Acute and chronic respiratory failure with hypercapnia Presentation: 10/28 15:47 Chief complaint: Patient states: Pt states that she has had a UTI for a couple of weeks [facility] and that she has been forgetting things over the last week. Coronavirus screen: Vaccine status: Patient reports receiving the 2nd dose of the covid vaccine. Ebola Screen: Patient denies exposure to infectious person. Patient denies travel to an Ebola-affected area in the 21 days before illness onset. Initial Sepsis Screen: Does the patient meet any 2 criteria? Mean Arterial Pressure (MAP) < 65. HR > 90 bpm. Yes Does the patient have a suspected source of infection? Yes: Dysuria/Frequency/Urgency/UTI. Risk Assessment: Do you want to hurt yourself or someone else? Patient reports no desire to harm self or others. Onset of symptoms was October 21, 2021. 15:47 Method Of Arrival: Ambulatory [facility] 15:47 Acuity: CRISTY 3 6 Triage Assessment: 15:54 General: Appears in no apparent distress. Behavior is calm, cooperative. Pain: [facility] Complains of pain in buttocks Pain currently is 8 out of 10 on a pain scale. Historical: - Allergies: 15:53 liquid magnesium; [facility] 15:53 Stadol; [facility] - PMHx: 15:53 acid reflux; Anxiety; COPD; Home O2 4 Lpm; Hypertension; spinal stenosis; [facility] - PSHx: 15:53 Cholecystectomy; hernia repair; right ankle sx; jh6 - Immunization history:: Client reports receiving the 2nd dose of the Covid vaccine. - Social history:: Smoking status: Patient denies any tobacco usage or history of. Screenin:38 Abuse screen: Denies threats or abuse. Denies injuries from another. Nutritional eo2 screening: No deficits noted. Tuberculosis screening: No symptoms or risk factors identified. Fall Risk None identified. Assessment: 16:38 General: Appears in no apparent distress. comfortable, Behavior is calm, cooperative. eo2 Pain: Complains of pain in buttocks and abdomen. Neuro: Level of Consciousness is awake, alert, obeys commands, Oriented to person, place, time, situation, Reports headache Denies dizziness. Cardiovascular: Denies chest pain. Respiratory: Reports shortness of breath baseline COPD, o2 dependent at home 4-5lpm per pt Airway is patent Trachea midline Respiratory effort is even, unlabored, Respiratory pattern is regular, symmetrical, Breath sounds are diminished bilaterally. GI: Reports abdominal pain, constipation, denies N/V/D. : Reports Foul smelling urine x 1 week. 19:00 Reassessment: Patient and/or family updated on plan of care and expected duration. Pain ll3 level reassessed. Pt is on BiPap, tolerating well. 23:11 Reassessment: Pt is asleep with eyes closed resting, chest rising and falling. ll3 Vital Signs: 15:47 BP 138 / 84; Pulse 99; Resp 18; Temp 97.6(TE); Pulse Ox 100% ; Weight 64.41 kg; Height [facility] 5 ft. 1 in. (154.94 cm); Pain 8/10; 16:38 BP 135 / 92; Pulse 92; Resp 17; Pulse Ox 100% on 2 lpm NC; Pain 8/10; eo2 18:00 BP 137 / 82; Pulse 96; Resp 20; Pulse Ox 100% on NC; ss7 21:00 BP 129 / 77; Pulse 94; Resp 19; Pulse Ox 98% ; ll3 22:00 BP 140 / 77; Pulse 94; Resp 16; Pulse Ox 98% on BiPAP; ll3 23:00 BP 116 / 80; Pulse 94; Resp 20; Pulse Ox 99% on BiPAP; ll3 15:47 Body Mass Index 26.83 (64.41 kg, 154.94 cm) [facility] Vitals: 16:38 Cardiac Rhythm Assessment Regular Sinus rhythm. eo2 ED Course: 15:45 Patient arrived in ED. am2 15:53 Triage completed. 6 15:54 Bed in low position. Call light in reach. Side rails up X 1. [facility] 15:56 Zaheer Mendez PA is PHCP. cp 15:56 Zaheer Ugarte MD is Attending Physician. cp 16:07 Victoirna Ahn, CARLOS is Primary Nurse. eo2 16:30 Inserted saline lock: 22 gauge in left forearm, using aseptic technique. Blood eo2 collected. 16:37 COVID-19/FLU A+B (Document "Date of Onset" if Symptomatic) Sent. eo2 16:38 personnel monitor on. Pulse ox on. NIBP on. Door closed. Noise minimized. Warm blanket eo2 given. 16:38 No provider procedures requiring assistance completed. eo2 16:42 Arm band placed on. eo2 17:06 XRAY Chest (1 view) In Process Unspecified. EDMS 17:54 CT Chest For PE Angio In Process Unspecified. EDMS 17:54 CT Abd/Pelvis - IV Contrast Only In Process Unspecified. EDMS 18:04 Andres Shields is Hospitalizing Provider. cp 18:27 Manuelito Estes MD is Hospitalizing Provider. la1 19:15 Report given to Neelam GONZALEZ. eo2 19:18 ABG Sent. ss7 19:19 Basic Metabolic Panel Sent. ss7 19:19 CBC with Diff Sent. ss7 19:19 LFT's Sent. ss7 Administered Medications: 18:07 Drug: SOLU-Medrol (methylPrednisoLONE) 125 mg Route: IVP; Site: left forearm; ss7 18:07 Drug: Albuterol - atroVENT (ipratropium) (3:1) (2.5 mg - 0.5 mg) 3 ml Route: Nebulizer; ss7 19:34 Drug: Tylenol 500 mg Route: PO; ll3 23:29 Follow up: Response: No adverse reaction ll3 19:34 Drug: XANax (alprazolam) Tablet 0.25 mg Route: PO; ll3 23:29 Follow up: Response: No adverse reaction ll3 Outcome: 18:05 Decision to Hospitalize by Provider. cp 23:58 Patient left the ED. mw2 Signatures: Dispatcher [employer] EDMS Andres Shields, EVAPORATOR SUPERVISOR-C EVAPORATOR SUPERVISOR-Cla1 Zaheer Mendez PA PA cp Beverley Hollis am2 Gume Fairchild mw2 Neelam Garrison RN RN ll3 Kaila Lambert RN RN jh6 Victorina Ahn RN RN eo2 Linh Martinez RN RN ss7
--- NOTE | 2021-10-28 18:05 | EDPHYS ---
Physician Documentation [facility] Name: iMla Whiting Age: 66 yrs Sex: Female : 1955 Arrival Date: 10/28/2021 Time: 15:45 Bed 23 Private MD: ED Physician Zaheer Ugarte HPI: 10/28 16:20 This 66 yrs old Black Female presents to ER via Ambulatory with complaints of cp drowsiness, Doesn't Feel Right. 16:20 The patient presents with trouble concentrating, drowsiness, fatigue. cp 16:20 Patient complains that she just doesn't feel right. Reports being forgetful recently. cp Admits to not using CPAP at night. Is on daily oxygen at 4 liters. 16:20 Associated signs and symptoms: Pertinent negatives: abdominal pain, chest pain, cp palpitations, weakness, fever. Patient's baseline: Neuro: alert and fully oriented, Motor: no deficits, Ambulation: walks without assistance, Speech: normal. Historical: - Allergies: 15:53 liquid magnesium; [facility] 15:53 Stadol; [facility] - PMHx: 15:53 acid reflux; Anxiety; COPD; Home O2 4 Lpm; Hypertension; spinal stenosis; [facility] - PSHx: 15:53 Cholecystectomy; hernia repair; right ankle sx; 6 - Immunization history:: Client reports receiving the 2nd dose of the Covid vaccine. - Social history:: Smoking status: Patient denies any tobacco usage or history of. ROS: 16:25 Constitutional: Negative for body aches, chills, fever, poor PO intake. cp 16:25 Eyes: Negative for injury, pain, redness, and discharge. cp 16:25 ENT: Negative for ear pain, sore throat, difficulty swallowing, difficulty handling secretions. 16:25 Cardiovascular: Negative for chest pain, palpitations. 16:25 Respiratory: Positive for shortness of breath, on exertion. Negative for cough, wheezing. 16:25 Abdomen/GI: Negative for abdominal pain, nausea, vomiting, and diarrhea. 16:25 : Negative for urinary symptoms. 16:25 Neuro: Positive for altered mental status, Negative for headache, syncope, weakness. 16:25 All other systems are negative. Exam: 16:30 Constitutional: The patient appears in no acute distress, alert, awake, cp non-diaphoretic, non-toxic, well developed, well nourished. 16:30 Head/Face: Normocephalic, atraumatic. cp 16:30 Eyes: Periorbital structures: appear normal, Pupils: equal, round, and reactive to cp light and accomodation, Extraocular movements: intact throughout, Conjunctiva: normal, no exudate, no injection, Sclera: no appreciated abnormality, Lids and lashes: appear normal, bilaterally. 16:30 ENT: External ear(s): are unremarkable, Nose: is normal, Mouth: Lips: moist, Oral mucosa: moist, Posterior pharynx: Airway: no evidence of obstruction, patent. 16:30 Chest/axilla: Inspection: normal. 16:30 Cardiovascular: Rate: normal, Rhythm: regular, Edema: is not appreciated, JVD: is not appreciated. 16:30 Respiratory: the patient does not display signs of respiratory distress, Respirations: normal, no use of accessory muscles, no retractions, labored breathing, is not present, Breath sounds: decreased breath sounds, that are mild, throughout, stridor, is not appreciated, wheezing: is not appreciated. 16:30 Abdomen/GI: Inspection: abdomen appears normal, Palpation: abdomen is soft and non-tender, in all quadrants. 16:30 Neuro: Orientation: to person, place \\T\\ time. Mentation: able to follow commands, slow to respond, Motor: moves all fours, strength is normal, Sensation: no obvious gross deficits. 16:35 ECG was reviewed by the Attending Physician. cp Vital Signs: 15:47 BP 138 / 84; Pulse 99; Resp 18; Temp 97.6(TE); Pulse Ox 100% ; Weight 64.41 kg; Height jh6 5 ft. 1 in. (154.94 cm); Pain 8/10; 16:38 BP 135 / 92; Pulse 92; Resp 17; Pulse Ox 100% on 2 lpm NC; Pain 8/10; eo2 18:00 BP 137 / 82; Pulse 96; Resp 20; Pulse Ox 100% on NC; ss7 21:00 BP 129 / 77; Pulse 94; Resp 19; Pulse Ox 98% ; ll3 22:00 BP 140 / 77; Pulse 94; Resp 16; Pulse Ox 98% on BiPAP; ll3 23:00 BP 116 / 80; Pulse 94; Resp 20; Pulse Ox 99% on BiPAP; ll3 15:47 Body Mass Index 26.83 (64.41 kg, 154.94 cm) 6 MDM: 15:56 Patient medically screened. 18:00 Physician consultation: Andres Shields was contacted at 18:00, regarding admission, to the telemetry unit. patient's condition. 18:45 Data reviewed: vital signs, nurses notes, lab test result(s), EKG, radiologic studies, cp CT scan, plain films. 18:45 Test interpretation: by ED physician or midlevel provider: ECG, plain radiologic cp studies. 10/28 16:12 Order name: Basic Metabolic Panel 10/28 16:12 Order name: CBC with Diff 10/28 16:12 Order name: LFT's 10/28 16:12 Order name: Magnesium; Complete Time: 17:09 10/28 16:12 Order name: NT PRO-BNP; Complete Time: 17:09 10/28 16:12 Order name: PT-INR; Complete Time: 17:09 10/28 16:12 Order name: Troponin HS; Complete Time: 17:09 cp 10/28 16:12 Order name: Urine Microscopic Only; Complete Time: 17:09 10/28 16:12 Order name: COVID-19/FLU A+B (Document "Date of Onset" if Symptomatic); Complete Time: cp 18:10/28 16:13 Order name: Basic Metabolic Panel; Complete Time: 17:09 EDMS 10/28 17:10 Interpretation: Normal except: CL 92; CO2 43; GLUC 125; BUN 5; CRE 0.40. 10/28 16:13 Order name: CBC with Automated Diff; Complete Time: 18:03 EDMS 10/28 17:40 Interpretation: Normal except: HGB 11.1; HCT 35.1; MCHC 31.7; MISA% 87.2; LYM% 8.3; LYMA cp 0.5. 10/28 16:13 Order name: Liver (Hepatic) Function; Complete Time: 17:09 EDMS 10/28 16:34 Order name: Urine Dipstick-Ancillary; Complete Time: 16:48 EDMS 10/28 16:48 Interpretation: Normal except: UBLD Trace-intact. 10/28 17:14 Order name: ABG 10/28 16:12 Order name: XRAY Chest (1 view); Complete Time: 18:27 10/28 16:12 Order name: EKG; Complete Time: 16:14 10/28 16:12 Order name: Cardiac monitoring; Complete Time: 16:38 10/28 16:12 Order name: EKG - Nurse/Tech; Complete Time: 16:38 10/28 16:12 Order name: IV Saline Lock; Complete Time: 16:38 10/28 16:12 Order name: Labs collected and sent; Complete Time: 16:38 10/28 16:12 Order name: O2 Per Protocol; Complete Time: 16:38 10/28 16:12 Order name: O2 Sat Monitoring; Complete Time: 16:38 10/28 17:14 Order name: CT Chest For PE Angio; Complete Time: 18:27 10/28 17:14 Order name: CT Abd/Pelvis - IV Contrast Only; Complete Time: 18:37 10/28 18:39 Interpretation: Report reviewed. 10/28 17:15 Order name: ABG Arterial Blood Gas [facility] 10/28 17:52 Order name: CBC Smear Scan; Complete Time: 18:03 EDDC 10/28 16:12 Order name: Urine Dipstick-Ancillary (obtain specimen); Complete Time: 16:37 cp EC:35 Rate is 89 beats/min. Rhythm is regular. WI interval is normal. QRS interval is normal. cp QT interval is normal. T waves are Inverted in leads I, aVL, V2. Interpreted by me. Reviewed by me. Administered Medications: 18:07 Drug: SOLU-Medrol (methylPrednisoLONE) 125 mg Route: IVP; Site: left forearm; 7 18:07 Drug: Albuterol - atroVENT (ipratropium) (3:1) (2.5 mg - 0.5 mg) 3 ml Route: Nebulizer; 7 19:34 Drug: Tylenol 500 mg Route: PO; ll3 23:29 Follow up: Response: No adverse reaction ll3 19:34 Drug: XANax (alprazolam) Tablet 0.25 mg Route: PO; ll3 23:29 Follow up: Response: No adverse reaction ll3 Disposition Summary: 10/28/21 18:05 Hospitalization Ordered Hospitalization Status: Inpatient Admission cp Condition: Fair cp Problem: an acute exacerbation cp Symptoms: have improved cp Bed/Room Type: Standard cp Provider: Manuelito Estes(10/28/21 18:27) la1 Location: Telemetry/MedSurg (Inpatient)(10/28/21 21:05) mw Room Assignment: 228(10/28/21 23:11) mw Diagnosis - Acute and chronic respiratory failure with hypercapnia cp Forms: - Medication Reconciliation Form cp - SBAR form cp Addendum: 10/31/2021 09:25 Co-signature as Attending Physician, Zaheer Ugarte MD I agree with the assessment and c pgeuero plan of care. Signatures: Dispatcher [employer] EDMS Lynsey Calderon RN RN mw Anderson, Corey, MD MD cha Attema, Lee, ELECTRONICS MECHANIC APPRENTICE-C ELECTRONICS MECHANIC APPRENTICE-Cla1 Zaheer Mendez PA PA cp Neelam Garrison, RN RN ll3 Kaila Lambert RN RN jh6 Linh Martinez RN RN ss7 Corrections: (The following items were deleted from the chart) 10/28 18:27 18:05 Andres Shields cp la1 20:32 18:05 Telemetry/MedSurg (Inpatient) cp mw 20:32 18:05 cp mw 21:05 20:32 [facility] ER HOLD mw mw 21:05 20:32 ERHOLD- mw mw 23:11 21:05 mw mw
[2021-10-28 18:15] LABS: SARS-COV-2 RT PCR NEGATIVE (NEGATIVE)
--- NOTE | 2021-10-28 18:19 | RAD REPORT ---
EXAM DESCRIPTION: CT - Chest For Pe Angio - 10/28/2021 5:54 pm CLINICAL HISTORY: sob COMPARISON: 2020 TECHNIQUE: Dynamically enhanced axial 3 mm thick images of the chest were obtained during administra tion of <100> mL Isovue 370 IV contrast. Coronal and oblique reconstruction images were generated and reviewed. Exam utilizes a protocol for optimal evaluation of pulmonary arterial tree. Maximum intensity projections 3D imaging was utilized All CT scans are performed using dose optimization technique as appropriate and may include automated exposure control or mA/KV adjustment according to patient size. FINDINGS: A pulmonary embolus is not seen. A thoracic aortic aneurysm is not noted. A pleural effusion is not seen. A pericardial effusion is not seen. A lung consolidation is not present. Mild to moderate COPD IMPRESSION: Negative for a pulmonary embolism.
--- NOTE | 2021-10-28 18:21 | RAD REPORT ---
EXAM DESCRIPTION: Roby Single View10/28/2021 5:06 pm CLINICAL HISTORY: Chest pain COMPARISON: none FINDINGS: The lungs appear clear of acute infiltrate. The heart is mildly enlarged. Lungs are mildly to moderately hyperaerated consistent with COPD IMPRESSION: COPD without visualization acute abnormality
[2021-10-28 18:30] LABS: Arterial Blood Carboxyhemoglob 1.1 % (0-1.5); Blood Gas Oxyhemoglobin 96.2 % (94-97); Blood O2 Saturation 98.4 % (92-98.5)
--- NOTE | 2021-10-28 18:30 | RAD REPORT ---
EXAM DESCRIPTION: CT - Abdomen Pelvis W Contrast - 10/28/2021 5:54 pm CLINICAL HISTORY: Abdominal pain COMPARISON: 2014 2017 2019 TECHNIQUE: Computed axial tomography of the abdomen pelvis was obtained. 100 cc Isovue-300 was admin istered intravenously. Oral contrast was not requested which limits evaluation of bowel. All CT scans are performed using dose optimization technique as appropriate and may include automated exposure control or mA/KV adjustment according to patient size. FINDINGS: A cirrhotic liver. Portal vein is distended but patent. Adrenals and kidneys demonstrate no significant abnormality. Multiple cystic pancreatic masses. They all have enlarged since the 2014. Some have enlarged some are stable since 2019. One within the pancreatic head measures 2 centimeters. One within the pancreatic body measures 1.9 centimeters. Multi septated lesion within the pancreatic tail measures 2.5 centimet ers There is no evidence of diverticulitis. Normal appendix Ventral hernia several centimeters above the umbilicus. The neck measures 1 centimeter. The herniated sac measures 2.7 centimeters. Mild edema within the fat. Small umbilical hernia containing fat. Fibroid uterus. The bladder is distended. 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 Cirrhosis Ventral hernia. Mild stranding within the herniated fat indicating inflammation
[2021-10-28] MEDS ORDERED: ALPRAZOLAM 0.25 MG TABLET ONE (19:28)
[2021-10-28] MEDS ORDERED: ACETAMINOPHEN 500 MG TAB ONE (19:29)
--- NOTE | 2021-10-28 19:49 | P.HP ---
Certification for Inpatient Patient admitted to: Inpatient With expected LOS: >2 Midnights Patient will require the following post-hospital care: None Practitioner: I am a practitioner with admitting privileges, knowledge of patient current condition, hospital course, and medical plan of care. Services: Services provided to patient in accordance with Admission requirements found in Title 42 Section 412.3 of the Code of Federal Regulations Patient History Date of Service: 10/28/21 Reason for admission: Respiratory failure History of Present Illness: 66-year-old -[place] female with history of COPD on chronic steroids, home oxygen, home noninvasive ventilator presents the emergency department for altered mental status. Patient reports has been using her home oxygen but not her CPAP at home noticed over the course last 2 days she been more more confused. Patient was evaluated in the emergency department her labs were significant for chloride 92 CO2 43 BUN 5 creatinine 0.4 ABG pH 7.25 PCO2 114 PO2 132. Patient with acute on chronic hypercapnic respiratory failure was placed on BiPAP, improving. Will admit for further evaluation and management of acute on chronic respiratory failure. Allergies butorphanol tartrate [From Stadol] Allergy (Severe, Verified 03/15/21 14:55) seizures magnesium sulfate Allergy (Severe, Verified 03/15/21 14:55) Anaphylaxis Home Medications: Amlodipine Besylate [Norvasc] 5 mg PO DAILY 08/12/12 Pantoprazole Sodium [Protonix] 40 mg PO DAILY 08/12/12 Albuterol Sulfate [Albuterol Sulfate 0.083% Neb Soln] 2.5 mg IH Q4H PRN #120 units 12/21/15 Buprenorphine [Butrans] 1 each TD EVERY 7TH DAY 07/02/17 Fluticasone Propionate [Flonase Allergy Relief] 9.9 ml NS DAILY 07/02/17 predniSONE [Prednisone*] 10 mg PO DAILY 07/02/17 Ipratropium/Albuterol Sulfate [Iprat-Albut 0.5-3(2.5) mg/3 ml] 3 ml IH QID 10/08/17 Hydrocodone/Acetaminophen [Hydrocodone-Acetamin 7.5-325] 1 tab PO TID 12/27/20 Lactulose 15 ml PO DAILY PRN 12/27/20 Promethazine HCl 1 tab PO Q8H 12/27/20 Albuterol Sulfate [Albuterol Sulfate Hfa] 1 puff IH TIDP PRN 03/15/21 Docusate Sodium [Stool Softener] 100 mg PO DAILY 03/15/21 Multivit-Min/FA/Lycopen/Lutein [Senior Tabs] 1 each PO DAILY 03/15/21 Tiotropium [place] [Spiriva] 1 spray IH DAILY 03/15/21 diazePAM [Valium*] 2.5 mg PO BID PRN 03/15/21 - Past Medical/Surgical History Diabetic: No -: Hypertension -: Hepatitis C-treated -: COPD -: Anxiety -: Hernia -: home 02 -: Stenosis -: HX OF UTI -: Cholecystectomy -: Right ankle surgery -: Hernia Repair Psychosocial/ Personal History: Lives at home alone - Family History Mother -: Hypertension, Diabetes Father -: Hypertension, Diabetes - Social History Smoking Status: Former smoker Alcohol use: Yes CD- Drugs: No Caffeine use: Yes Place of Residence: Home Review of Systems 10-point ROS is otherwise unremarkable Respiratory: Shortness of Breath, SOB with Excertion, Wheezing, As per HPI Physical Examination - Physical Exam General: Alert, In no apparent distress, Oriented x3 HEENT: Atraumatic, PERRLA, Mucous membr. moist/pink, EOMI, Sclerae nonicteric Neck: Supple, 2+ carotid pulse no bruit, No LAD, Without JVD or thyroid abnormality Respiratory: Diminished, Expiratory wheezes Cardiovascular: Regular rate/rhythm, Normal S1 S2 Capillary refill: <2 Seconds Gastrointestinal: Normal bowel sounds, No tenderness Musculoskeletal: No tenderness Integumentary: No rashes Neurological: Normal gait, Normal speech, Normal strength at 5/5 x4 extr, Normal tone, Normal affect Lymphatics: No axilla or inguinal lymphadenopathy - Studies Laboratory Data (last 24 hrs) 10/28/21 16:30: PT 12.1, INR 1.05 10/28/21 16:30: WBC 5.50, Hgb 11.1 L, Hct 35.1 L, Plt Count 203 10/28/21 16:30: Sodium 136, Potassium 4.3, BUN 5 L, Creatinine 0.40 L, Glucose 125 H, Magnesium 1.8, Total Bilirubin 0.3, AST 15, ALT 25, Alkaline Phosphatase 69 Assessment and Plan - Plan Assessment: Acute on chronic hypercapnic/hypoxic respiratory failure secondary to COPD with exacerbationon chronic steroids/home O2/noninvasive vent GERD Hypertension Anxiety Plan: Acute on chronic hypercapnic/hypoxic respiratory failure secondary to COPD with exacerbationon chronic steroids/home O2/noninvasive vent: Continuous BiPAP throughout the evening, pulmonology consulted, IV steroids, nebulizer treatments. Patient improving already oriented x4 feeling much better. Appreciate further input from pulmonology. repeat ABG in AM GERD: Daily protonix Hypertension: Obtain and continue home meds Anxiety: As needed medication for anxiety DVT PPX: Lovenox Code status: Full Discharge Plan: Home Plan to discharge in: 48 Hours - Advance Directives Does patient have a Living Will: No Does patient have a Durable POA for Healthcare: No - Code Status/Comfort Care Code Status Assessed: Yes (Full) Critical Care: No Time Spent Managing Pts Care (In Minutes): 55
[2021-10-29] MEDS ORDERED: ONDANSETRON 4 MG/2 ML VIAL IV PRN (00:08)
[2021-10-29] MEDS: METHYLPREDNISOLONE 40 MG INJ IV SCH ×2 (00:46→09:00)
[2021-10-29] MEDS: ACETAMINOPHEN 500 MG TAB PO PRN ×2 (00:46→09:11)
[2021-10-29 01:03] VITALS: BMI 25.1
[2021-10-29 02:25] LABS: Urine Appearance CLEAR (Clear); Urine Bilirubin NEGATIVE (Negative); Urine Blood NEGATIVE (Negative); Urine Color YELLOW (Yellow); Urine Glucose NEGATIVE (Negative); Urine Protein NEGATIVE (Negative); Urine Specific Gravity >=1.030 (1.005-1.030)
[2021-10-29 02:40] LABS: Urine Microscopic Reflex NO UMIC
[2021-10-29 05:56] LABS: Absolute Lymphocytes (CBC) 0.4 K/uL (0.7-4.9); Hematocrit 34.9 % (36.0-45.0); Lymphocytes % 6.2 % (15.3-44.8); MPV 9.1 fL (7.6-11.3); RBC Red Blood Cell Count 4.03 M/uL (3.86-4.86)
--- NOTE | 2021-10-29 06:24 | P.PN ---
Date of Service: 10/29/21 Subjective: Feels better, breathing comfortably on nasal cannula Tolerated BiPAP overnight, reports Ativan helped Feels her mind is more "clear", less confused No new symptoms ROS: 10 point ROS as noted above, otherwise negative Physical exam GEN: Alert, oriented, NAD HEENT: Normal conjunctiva, sclera anicteric CV: Regular rate and rhythm, no edema Pulm: Nonlabored respirations on 6L NC, b/l wheeze, +cough ABD: Soft, nontender, nondistended Neuro: Normal speech, normal affect Problem List Acute on chronic hypercapnic/hypoxic respiratory failure secondary to COPD with exacerbationon chronic steroids/home O2/noninvasive vent GERD Hypertension Anxiety Tolerated BiPAP overnight with Ativan Continue steroids, nebulizer treatment Pulmonology consulted Add Diamox Down to 6 L nasal cannula More alert/oriented, less confused Had significant hypercapnia on ABG on admission No evidence of acute infection Suspect caused secondary to not using NIV at home Code: Full Dispo: Home, likely tomorrow Time Spent Managing Pts Care (In Minutes): 35
[2021-10-29 06:33] LABS: ALT/SGPT 24 U/L (12-78); AST/SGOT 18 U/L (15-37); Albumin 3.4 g/dL (3.4-5.0); Alkaline Phosphatase 65 U/L (45-117); BUN Blood Urea Nitrogen 8 mg/dL (7-18); Bilirubin Total 0.3 mg/dL (0.2-1.0); Glucose Level 183 mg/dL (74-106); Potassium 4.2 mmol/L (3.5-5.1); Protein, Total 7.5 g/dL (6.4-8.2); Sodium Level 135 mmol/L (136-145)
[2021-10-29 06:34] LABS: Bicarbonate 42 mmol/L (21-32)
[2021-10-29 06:53] LABS: Arterial Blood Carboxyhemoglob 1.3 % (0-1.5); Blood Gas Oxyhemoglobin 92.6 % (94-97)
[2021-10-29] MEDS ORDERED: INFLUENZA VACCINE (for 6+ mo) 0.5 ML DOSE IMVAC ONE (08:00)
--- NOTE | 2021-10-29 09:11 | EKG ---
Test Date: 2021-10-28 Test Time: 16:28:19 Account Advisor: EO MEASUREMENT RESULTS: Intervals: Rate: 89 SD: 194 QRSD: 86 QT: 326 QTc: 396 Miller: P: SD: 194 QRS: 143 T: 149 INTERPRETIVE STATEMENTS: Sinus rhythm with marked sinus arrhythmia Left posterior fascicular block Voltage criteria for left ventricular hypertrophy Nonspecific ST and T wave abnormality Abnormal ECG Compared to ECG 04/25/2021 01:56:01 Left posterior fascicular block now present ST (T wave) deviation now present T-wave abnormality no longer present Electronically Signed On 10-29-21 09:09:11 FULL CHARGE BOOKKEEPER by Rusty Castillo
[2021-10-29] MEDS: ENOXAPARIN 40 MG/0.4 ML SQ SCH (09:13)
--- NOTE | 2021-10-29 12:26 | P.CNS ---
Date of Consult: 10/29/21 Chief Complaint: Respiratory failure History of Present Illness: Patient is 66 years of age with a history of terminal COPD currently was not using her noninvasive ventilator at home in [place] with increasing shortness of breath more confused found to be very hypercapnic is back to her baseline and wants to go back home Allergies butorphanol tartrate [From Stadol] Allergy (Severe, Verified 03/15/21 14:55) seizures magnesium sulfate Allergy (Severe, Verified 03/15/21 14:55) Anaphylaxis Home Medications: Amlodipine Besylate [Norvasc] 5 mg PO DAILY 08/12/12 Pantoprazole Sodium [Protonix] 40 mg PO DAILY 08/12/12 predniSONE [Prednisone*] 10 mg PO DAILY 07/02/17 Hydrocodone/Acetaminophen [Hydrocodone-Acetamin 7.5-325] 1 tab PO TID PRN 12/27/20 Budesonide/Formoterol Fumarate [Symbicort 160-4.5 Mcg Inhaler] 2 puff PO PRN PRN 10/29/21 Gabapentin 1 cap PO TID 10/29/21 - Past Medical/Surgical History Diabetic: No -: Hypertension -: Hepatitis C-treated -: COPD -: Anxiety -: Hernia -: home 02 -: Stenosis -: HX OF UTI -: Cholecystectomy -: Right ankle surgery -: Hernia Repair Psychosocial/ Personal History: Lives at home alone - Family History Mother Medical History: Hypertension, Diabetes Father Medical History: Hypertension, Diabetes - Social History Smoking Status: Former smoker Alcohol use: Yes CD- Drugs: No Caffeine use: Yes Place of Residence: Home Review of Systems 10-point ROS is otherwise unremarkable Respiratory: Shortness of Breath Physical Examination Temp Pulse Resp BP Pulse Ox 96.9 F 87 20 130/70 97 10/29/21 08:00 10/29/21 08:00 10/29/21 08:00 10/29/21 08:00 10/29/21 08:00 General: Alert, In no apparent distress, Oriented x3 Respiratory: Diminished, Expiratory wheezes Cardiovascular: Regular rate/rhythm, Normal S1 S2 Laboratory Data (last 24 hrs) 10/28/21 16:30: PT 12.1, INR 1.05 10/28/21 16:30: WBC 5.50, Hgb 11.1 L, Hct 35.1 L, Plt Count 203 10/28/21 16:30: Sodium 136, Potassium 4.3, BUN 5 L, Creatinine 0.40 L, Glucose 125 H, Magnesium 1.8, Total Bilirubin 0.3, AST 15, ALT 25, Alkaline Phosphatase 69 - Problems (1) Acute respiratory failure with hypercapnia Current Visit: No Status: Acute Plan: Patient is 66 years of age with terminal COPD was not using her noninvasive ventilator for the past 2 weeks doing better back to her baseline patient's bicarbonate is very elevated maximize bronchodilator therapy add Diamox titrate sat to 88 to 90%
[2021-10-29] MEDS: acetaZOLAMIDE 250 MG TAB PO SCH ×2 (13:28→20:53)
[2021-10-29] MEDS ORDERED: PANTOPRAZOLE 40MG TABLET PO ONE (13:40)
[2021-10-29] MEDS: ALBUTEROL 2.5 MG/3 ML NEB SOL NEB SCH ×2 (13:51→19:40)
[2021-10-29] MEDS: IPRATROPIUM BROM 0.5MG/2.5ML NEB SCH ×2 (13:51→19:40)
[2021-10-29] MEDS: HYDROCODONE/APAP 7.5/325 MG TAB PO PRN (14:10)
[2021-10-29] MEDS: GABAPENTIN 300 MG CAP PO SCH ×2 (14:15→20:53)
[2021-10-29] MEDS: ALPRAZOLAM 0.25 MG TABLET PO PRN ×2 (14:19→22:50)
[2021-10-29] MEDS: predniSONE 20 MG TAB PO SCH (20:53)
[2021-10-30] MEDS: ALBUTEROL 2.5 MG/3 ML NEB SOL NEB SCH ×3 (02:10→13:50)
[2021-10-30] MEDS: IPRATROPIUM BROM 0.5MG/2.5ML NEB SCH ×3 (02:10→13:50)
[2021-10-30 05:52] LABS: Arterial Blood Carboxyhemoglob 1.1 % (0-1.5); Blood O2 Saturation 96.1 % (92-98.5)
[2021-10-30 05:55] LABS: Absolute Lymphocytes (CBC) 0.6 K/uL (0.7-4.9); Hematocrit 32.6 % (36.0-45.0); Lymphocytes % 6.8 % (15.3-44.8); MPV 8.9 fL (7.6-11.3); RBC Red Blood Cell Count 3.74 M/uL (3.86-4.86)
[2021-10-30 06:13] LABS: ALT/SGPT 24 U/L (12-78); AST/SGOT 15 U/L (15-37); Albumin 3.4 g/dL (3.4-5.0); Alkaline Phosphatase 59 U/L (45-117); BUN Blood Urea Nitrogen 11 mg/dL (7-18); Bicarbonate 36 mmol/L (21-32); Bilirubin Total 0.3 mg/dL (0.2-1.0); Glucose Level 133 mg/dL (74-106); Magnesium 1.9 mg/dL (1.8-2.4); Potassium 3.6 mmol/L (3.5-5.1); Protein, Total 7.3 g/dL (6.4-8.2); Sodium Level 132 mmol/L (136-145)
[2021-10-30] MEDS ORDERED: PANTOPRAZOLE 40MG TABLET PO SCH (06:30)
[2021-10-30 08:29] VITALS: O2SAT 98
[2021-10-30] MEDS ORDERED: POTASSIUM CL SA 10 MEQ TAB PO ONE (09:00)
[2021-10-30] MEDS: predniSONE 20 MG TAB PO SCH (09:15)
[2021-10-30] MEDS: GABAPENTIN 300 MG CAP PO SCH (09:15)
[2021-10-30] MEDS: ENOXAPARIN 40 MG/0.4 ML SQ SCH (09:15)
[2021-10-30] MEDS: acetaZOLAMIDE 250 MG TAB PO SCH (09:15)
[2021-10-30] MEDS: ALPRAZOLAM 0.25 MG TABLET PO PRN (09:20)
[2021-10-30] MEDS: HYDROCODONE/APAP 7.5/325 MG TAB PO PRN (12:30)
[2021-10-30 12:41] VITALS: BP 132/75; TEMP 98.9
--- NOTE | 2021-10-30 18:18 | P.DS ---
Admission Date: 10/28/21 Discharge Date: 10/30/21 Disposition: ROUTINE DISCHARGE Discharge Condition: GOOD Reason for Admission: Respiratory failure Consultations: Pulmonology - Dr. Smith Procedures: Problem List Acute on chronic hypercapnic/hypoxic respiratory failure secondary to COPD with exacerbationon chronic steroids/home O2/noninvasive vent GERD Hypertension Anxiety Brief History of Present Illness: 66-year-old -Palestinian female with history of COPD on chronic steroids, home oxygen, home noninvasive ventilator presents the emergency department for altered mental status. Patient reports has been using her home oxygen but not her CPAP at home noticed over the course last 2 days she been more more confused. Patient was evaluated in the emergency department her labs were significant for chloride 92 CO2 43 BUN 5 creatinine 0.4 ABG pH 7.25 PCO2 114 PO2 132. Patient with acute on chronic hypercapnic respiratory failure was placed on BiPAP, improving. Will admit for further evaluation and management of acute on chronic respiratory failure. Hospital Course: Patient was found to be hypercapnic with confusion. She had improvement with BiPAP, steroids, and breathing treatments. Pulmonology was consulted, added Diamox as well. Patient had continued improvement, PCO2 significantly improved from 120s down to 60s. Patient was deemed stable for discharge per pulmonology, recommended Diamox on discharge be added to her home regimen. Recommend 3 more days of prednisone 20 mg twice a day, afterwards to resume daily prednisone as previously prescribed. Follow-up with pulmonology in 1 week Vital Signs/Physical Exam: Temp Pulse Resp BP Pulse Ox 98.9 F 93 H 18 132/75 100 10/30/21 12:00 10/30/21 12:00 10/30/21 12:00 10/30/21 12:00 10/30/21 12:00 Physical exam GEN: Alert, oriented, NAD HEENT: Normal conjunctiva, sclera anicteric CV: Regular rate and rhythm, no edema Pulm: Nonlabored respirations on 2L NC ABD: Soft, nontender, nondistended Neuro: Normal speech, normal affect Laboratory Data at Discharge: WBC 9.00 K/uL (4.3-10.9) D 10/30/21 05:20 Hgb 10.4 g/dL (12.0-15.0) L 10/30/21 05:20 Hct 32.6 % (36.0-45.0) L 10/30/21 05:20 Plt Count 205 K/uL (152-406) 10/30/21 05:20 PT 12.1 SECONDS (9.5-12.5) 10/28/21 16:30 INR 1.05 10/28/21 16:30 Sodium 132 mmol/L (136-145) L 10/30/21 05:20 Potassium 3.6 mmol/L (3.5-5.1) 10/30/21 05:20 BUN 11 mg/dL (7-18) 10/30/21 05:20 Creatinine 0.51 mg/dL (0.55-1.3) L 10/30/21 05:20 Glucose 133 mg/dL (74-106) H 10/30/21 05:20 Magnesium 1.9 mg/dL (1.8-2.4) 10/30/21 05:20 Total Bilirubin 0.3 mg/dL (0.2-1.0) 10/30/21 05:20 AST 15 U/L (15-37) 10/30/21 05:20 ALT 24 U/L (12-78) 10/30/21 05:20 Alkaline Phosphatase 59 U/L (45-117) 10/30/21 05:20 Home Medications: Amlodipine Besylate [Norvasc] 5 mg PO DAILY 08/12/12 Pantoprazole Sodium [Protonix] 40 mg PO DAILY 08/12/12 predniSONE [Prednisone*] 10 mg PO DAILY 07/02/17 Hydrocodone/Acetaminophen [Hydrocodone-Acetamin 7.5-325] 1 tab PO TID PRN 12/27/20 Budesonide/Formoterol Fumarate [Symbicort 160-4.5 Mcg Inhaler] 2 puff PO PRN PRN 10/29/21 Gabapentin 1 cap PO TID 10/29/21 acetaZOLAMIDE [Diamox*] 125 mg PO BID 30 Days #60 tab 10/30/21 predniSONE [Prednisone*] 20 mg PO BID 3 Days #6 tab 10/30/21 New Medications: acetaZOLAMIDE [Diamox*] 125 mg PO BID 30 Days #60 tab predniSONE [Prednisone*] 20 mg PO BID 3 Days #6 tab Physician Discharge Instructions: Patient was found to be hypercapnic with confusion. She had improvement with BiPAP, steroids, and breathing treatments. Pulmonology was consulted, added Diamox as well. Patient had continued improvement, PCO2 significantly improved from 120s down to 60s. Patient was deemed stable for discharge per pulmonology, recommended Diamox on discharge be added to her home regimen. Recommend 3 more days of prednisone 20 mg twice a day, afterwards to resume daily prednisone as previously prescribed. Follow-up with pulmonology in 1 week Diet: AHA Activity: Ad zena Followup: Finesse Smith MD [ACTIVE - CAN ADMIT] - 1 Week (Chief Mate -call to schedule an appointment ) Time spent managing pt's care (in minutes): 45
== END 2021-10-30 15:30 | disposition home or self-care (01) | DRG 190 ==
LOC: ER 15:44 → ERHOLD 19:07 → 2ND 23:32
PROVIDERS: ADMIT Hospitalist; ATTEND Hospitalist
PROC: 5A09357 Assistance with Respiratory Ventilation, Less than 24 Consecutive Hours, Continuous Positive Airway Pressure (ICD-10-PCS; principal; 2021-10-28)
DX: J44.1 Chronic obstructive pulmonary disease with (acute) exacerbation (principal); J96.22 Acute and chronic respiratory failure with hypercapnia; J96.21 Acute and chronic respiratory failure with hypoxia; I10 Essential (primary) hypertension; F41.9 Anxiety disorder, unspecified; K21.9 Gastro-esophageal reflux disease without esophagitis; Z99.81 Dependence on supplemental oxygen; Z90.49 Acquired absence of other specified parts of digestive tract; Z88.8 Allergy status to other drugs, medicaments and biological substances; Z79.52 Long term (current) use of systemic steroids; Z79.899 Other long term (current) drug therapy; Z87.891 Personal history of nicotine dependence; Z20.822 Contact with and (suspected) exposure to COVID-19
CPT/HCPCS: 0240U; 36415; 71045; 71275; 74177; 80048; 80053; 80076; 81003; 81015; 82805; 83735; 83880; 84484; 85025; 85610; 93005; 94640; 94660; 94760; 96374; 99285; J1650; J2920; J2930; J7512; Q9967

== ENCOUNTER 2021-12-01 22:16 | Inpatient (IN) | payer OTHER ==
--- OUTSIDE RECORDS SUMMARY | 2021-12-01 22:20 | XMS REPORT | Continuity of Care Document ---
:1955 Author Organization [facility] t Address [address] [place] [address] Care Team Providers Name Role Phone Victor [...] Expiration Date S ource MEDICARE PART A [id number] 2020 2020 \\T\\ B 00:00:00 00:00:00 KAMRON RAMIREZ [id number] 2020 2021 PLUS CHOICE 00:00:00 00:00:00 MEDICAID OF [place] [id number] 2020 2021 00:00:00 00:00:00 Problems Condition Condition [...] Chronic Chronic Disease Active Univers airway airway 02-02 [place] ity of Tartrate adverse 00:00: [place] reaction Medical s Branch BUTORPHA DRUG Active High Unknown-Cmnt Un nathen NOL INGREDI 6-05 ity of TARTRATE 00:00: Medical [place] Stadol Adverse Active Info Not [facility] Magnesiu Adverse Active Info Not [facility] Reaction Available [facility] Social History Social Habit Start Date Stop Date Quantity Comments Source History of tobacco Cigarette Smoker University of use [facility] History SDOH University o f Alcohol Frequency [facility] History SDNC University o f Alcohol Std Drinks [facility] History [facility] University o f Alcohol Binge [facility] Sex Assigned [facility] - [facility] Tobacco use and 2018-12-28 2018-12-[address] [facility] - exposure 00:00:00 00:00:00 [facility] Alcohol intake 2018-12-28 2018-12-[address] [facility] - 00:00:00 00:00:00 non-drinker of Medical nter alcohol (finding) Tobacco Comment 2018-12-27 2018-12-27 quit 2 [facility]rs [facility] 00:[facility] 00[facility]00:00 [facility] Cigarettes smoked 2015-12-30 2015-12-30 Univers ity of current (pack per 00:00:00 00:00:00 [facility] ) - Reported Branch Cigarette 2015-12-30 2015-12-30 University of pack-years 00:00:00 00:00:00 [facility] Alcohol Comment 2007-02-02 2007-02-02 social drinker Unive rsity of 00:00:00 00:00:00 [facility] Smoking Status Start Date Stop Date Source Former smoker 2018-12-28 00:00:00 2018-12-28 00:00:[address] [facility] - [facility] Medications Ordered Filled Start Stop Current Ordering Indication Dosage Frequency Signature Comments Components Source Medication Medication Date Date Medication? Clinician (SIG) Name Name AMLODIPINE Yes [id number] TAKE 1 Un nathen 5 mg tablet 2-14 TABLET BY ity of 00:00: MOUTH EVERY DAY Medical Branch diazePAM 2020-08 Yes [id number] 5mg Take 1 Uni vers (VALIUM) 5 2-31 tablet by ity of mg tablet 00:00: mouth 3 [place] (three) Medical times Branch daily as needed for Anxiety. diazePAM 2020-08 Yes [id number] 5mg Take 1 Uni vers (VALIUM) 5 2-31 tablet by ity of mg tablet 00:00: mouth 3 00 (three) Medical times Branch daily as needed for Anxiety. diazePAM 2020-08 Yes [id number] 5mg Take 1 Uni vers (VALIUM) 5 2-31 tablet by ity of mg tablet 00:00: mouth 3 00 (three) Medical times Branch daily as needed for Anxiety. diazePAM 2020-08 Yes [id number] 5mg Take 1 Uni vers (VALIUM) 5 [...] Medical unit CpDR Branch diazePAM 2020-08- No [id number] 5mg Take 1 Un nathen (VALIUM) 5 1-16 12-31 tablet by ity of mg tablet 00:00: 00:[place] ([place] Medical times Branch daily. cefUROXime 2020-08- No [id number] 250mg Take 1 Univers 250 mg 1-09 12-31 tablet by ity of tablet 00:00: 00:00 mouth 2 [place] 00 :00 (two) Medical times Branch daily. pantoprazol 2020-08 Yes [id number] 40mg Take 1 Univers e 40 mg EC 0-04 tablet by ity of tablet 00:00: mouth [place] 00 daily. Medical Branch pantoprazol 2020-08 Yes [id number] 40mg Take 1 Univers e 40 mg EC 0-04 tablet by ity of tablet 00:00: mouth [place] 00 daily. Medical Branch pantoprazol 2020-08 Yes [id number] 40mg Take 1 Univers e 40 mg EC 0-04 tablet by ity of tablet 00:00: mouth daily. Medical Branch pantoprazol 2020-08 Yes [id number] 40mg Take 1 Univers e 40 mg EC 0-04 tablet by ity of tablet 00:00: mouth daily. Medical Branch cefUROXime 2020- No [id number] 500mg Take 1 Univers 500 mg 6-11 12-31 tablet by ity of tablet 00:00: 00:00 mouth 2 [place] 00 :00 (two) Medical times Branch daily. predniSONE Yes 5mg Take 5 mg Un nathen 5 mg tablet 4-13 by mouth. ity of 14:13: [address] predniSONE Yes 5mg Take 5 mg Un nathen 5 mg tablet 4-13 by mouth. ity of 14:13: [address] predniSONE Yes 5mg Take 5 mg Un nathen 5 mg tablet 4-13 by mouth. ity of 14:13: [address] predniSONE Yes 5mg Take 5 mg Un nathen 5 mg tablet 4-13 by mouth. ity of 14:13: [address] baclofen 10 Yes Univer s mg tablet 4-03 ity of 00:00: Medical Branch baclofen 10 0 Yes Univer s mg tablet 4-03 ity of 00:00: Medical [place] baclofen 10 2020-0 Yes Univer s mg tablet 4-03 ity of 00:00: [place] [facility] Branch baclofen 10 0 Yes Univer s mg tablet 4-03 ity of 00:00: [place] [facility] HYDROcodone Yes 1{tbl} Take 1 [...] f SYSTEMS 14:37: ous route. Tripp mor[place] [address] Medical Branch HYDROcodone Yes 1{tbl} Take 1 Un nathen -acetaminop 3-12 tablet by ity of hen 7.5-325 14:37: mouth 3 Shawn as mg per 07 (three) Medical tablet times Branch daily. OXYGEN-AIR Yes by Univers DELIVERY 3-12 Miscellane ity o f SYSTEMS 14:37: ous route. Tripp morgan [address] Branch HYDROcodone Yes 1{tbl} Take 1 Un nathen -acetaminop 3-12 tablet by ity of hen 7.5-325 14:37: mouth 3 Shawn as mg per 07 (three) Medical tablet times Branch daily. OXYGEN-AIR Yes by Univers DELIVERY 3-12 Miscellane ity o f SYSTEMS 14:37: ous route. Tripp morgan [address] Branch LORazepam 1 2020- No [id number] 1mg Take 1 Univers mg tablet 3-12 [...] ical on Mist Branch amLODIPine 0 Yes [id number] 5mg Take 1 Un nathen 5 mg tablet 1-19 tablet by ity of 00:00: mouth [place] 00 daily. Medical Branch amLODIPine 0 Yes [id number] 5mg Take 1 Un nathen 5 mg tablet 1-19 tablet by ity of 00:00: mouth [place] 00 daily. Medical Branch amLODIPine 0 Yes [id number] 5mg Take 1 Un nathen 5 mg tablet 1-19 tablet by ity of 00:00: mouth [place] 00 daily. Medical Branch amLODIPine 0 2022- No [id number] 5mg Take 1 U nivers 5 mg tablet 1-19 02-14 tablet by it y of 00:00: 00:00 mouth [place] 00 :00 daily. Medical Branch promethazin Yes 5mL Take 5 mL U nivers e-codeine 7-17 by mouth. ity o f 6.25-10 14:54: [place] mg/5 mL 38 Medical syrup Branch promethazin Yes 5mL Take 5 mL U nivers e-codeine 7-17 by mouth. ity o f 6.10 14:54: [place] mg/5 mL 38 Medical syrup Branch promethazin Yes 5mL Take 5 mL U nivers e-codeine 7-17 by mouth. ity o f 6.25-10 14:54: [place] mg/5 mL 38 Medical syrup Branch promethazin Yes 5mL Take 5 mL U nivers e-codeine 7-17 by mouth. ity o f 6.10 14:54: [place] mg/5 mL 38 Medical syrup Branch TIOTROPIUM Yes Inhale. Univ ers BROMIDE 7-17 ity of (SPIRIVA 14:52: [place] RESPIMAT 14 Medical INHALE) Branch MOMETASONE Yes Use in Univ ers FUROATE 7-17 each ity of (NASONEX 14:52: nostril. [place] NASAL) 14 Medical Branch TIOTROPIUM Yes Inhale. [...] 7-17 each ity of (NASONEX 14:52: nostril. [place] NASAL) 14 Medical Branch TIOTROPIUM Yes Inhale. Univ ers BROMIDE 7-17 ity of (SPIRIVA 14:52: [place] RESPIMAT 14 Medical INHALE) Branch MOMETASONE Yes Use in Univ ers FUROATE 7-17 each ity of (NASONEX 14:52: nostril. [place] NASAL) 14 Medical Branch buprenorphi Yes APPLY [...] Miscellane [facility] - SYSTEMS 10:34: ous route. [facility] 04 Center Butrans Butrans Yes Na Guido [...] [facility] Yes Na Guido [address] [facility] Allergy Allergy [facility] [place] Yes Na Guido [address] [facility] [facility] Yes Na Guido [address] [facility] Protonix Protonix Yes Na Guido 1/[address] [facility]ics PredniSONE PredniSONE Yes Na Guido [address] [facility] - [facility] Combivent Combivent Yes Na Guido not [facility] defined [facility] Immunizations Ordered Filled Immunization Date Status Comments Sour e Immunization Name Name SARS-COV-2 COVID-19 2021-08-30 Completed Unive rsity of MODERNA BOOSTER 00:00:00 [place] Med ical VACCINE Branch SARS-COV-2 COVID-19 2021-08-30 Completed Unive rsity of MODERNA BOOSTER 00:00:00 [facility] ical VACCINE Branch SARS-COV-2 COVID-19 2021-08-30 Completed Unive rsity of MODERNA BOOSTER 00:00:00 [facility] ical VACCINE Branch SARS-COV-2 COVID-19 2021-08-30 Completed Unive rsity of MODERNA BOOSTER 00:00:00 [facility] VACCINE Branch Vital Signs Vital Name Observation Time Observation Value Comments Source Systolic blood 2021-08-30 17:34:00 153 mm[Hg] Univer sity of [place] pressure [facility] Diastolic blood 2021-08-30 17:34:00 78 mm[facility]Hg] [facility] Heart rate 2021-08-30 17:34:00 106 /min [facility] Body height 2021-08-30 17:34:00 154.9 cm [facility] Body weight 2021-08-30 17:34:00 67.132 kg [facility] BMI 2021-08-30 17:34:00 27.96 kg/m2 [facility] Procedures Procedure Date / Time Performing Clinician Source Performed MEDICATION CORRESPONDENCE 2021-09-11 06:01:00 Doctor Unassigned, [facility] [place] [facility] SARS-COV-2 COVID-19 2021-08-30 18:03:19 Damian Billy [facility] VACCINE BOOSTER,0.25ML,IM [facility] (MODERNA) Plan of Care Planned Activity Planned Date Details Comments Source Future Scheduled 2020-05-[address] [facility] - Test 00:00:00 (#1) [code = [facility] INFLUENZA VACCINE (#1)] Future Scheduled [address] [facility] - Test 00:00:00 (procedure) [code = [facility] Center 64250804] Future Scheduled [address] [facility] - Test 00:00:00 malignant neoplasm Medical C enter of cervix (procedure) [code = 935963833] Future Scheduled [address] [facility] - Test 00:00:00 malignant neoplasm Medical C enter of breast (procedure) [code = 567813062] Future Scheduled [address] [facility] - Test 00:00:00 malignant neoplasm Medical C enter of colon (procedure) [code = 762705471] Encounters Start End Encounter Admission Attending Care Care Encounter Source Date/Time Date/Time Type Type Clinicians Facility Department ID 2021-09-25 Outpatient [facility] Na [facility] [id number] 11:46:[facility] [id number] 2021-09-25 Out[facility] [id number] 11:44:44 [facility]40 [facility] 2021-10-14 2021-10-14 [facility] [id number] Univers 00:00:00 00:00:00 [facility] [id number] it y of [facility] [id number] Shawn as PROFESSIO [phone] [address] OFFICE [facility] 2021-09-11 2021-09-11 Orders Doctor DONNA [id number] Univers 00:00:00 00:00:00 Only Unassigned, JONATHAN [id number] ity of [place] [facility] [id number] Shawn as [phone] [place] [address] Branch 2021-09-03 2021-09-03 [facility] [id number] Univers 00:00:00 00:00:00 [facility] [id number] it y of Edarti [place] [id number] Shawn as PROFESSIO [phone] [address] OFFICE BUILDING ONE 2021-08-30 2021-08-30 Outpatient R WENCESLAO [facility] [id number] Univers 13:00:00 13:52:57 DAMIAN [facility] 2021-08-30 2021-08-30 Office Wenceslao [facility] [id number] Univers 13:00:00 13:15:00 Visit [facility] [id number] it y of Victor Hugo BUS[place] [id number] Shawn as RIZWANA?BLEA [phone] Tn caesarmaryjo QUEVEDO [address] [place] [address] MEDICAL OFFICE BUILDING 2021-08-28 2021-08-28 Outpatient R WENCESLAO [facility] [id number] Univers 15:30:00 15:30:00 DAMIAN [facility] 2021-07-30 2021-07-30 Outpatient R ZIGGY MEJIA [facility] [id number] Univers 13:30:00 13:30:00 ZIGGY MEJIA [facility] 2021-05-24 2021-05-24 Outpatient R IBRAHIMA SOMMER [facility] [id number] Univers 13:56:37 13:56:37 IBRAHIMA SOMMER [facility] 2021-03-22 2021-03-22 [facility] [id number] 00:00:00 00:00:00 [facility] [id number] Victor Hugo [place] [id number] Professio [phone] [address] One 2021-03-21 2021-03-[address] [facility] [id number] 00:00:00 00:00:00 [facility] [id number] Edarti [place] [id number] Professio [phone] One 2021-03-11 2021-03-11 Outpatient R RADIOLOGY [facility] [id number] Univers 00:00:00 00:00:00 [id number] [facility] 2021-02-26 2021-02-26 Outpatient IBRAHIMA HERRERA [facility] [id number] [facility] 15:00:00 15:57:07 IBRAHIMA SOMMER [facility] 2021-02-26 2021-02-26 Office Ros [facility] [id number] 14:45:21 15:57:07 Visit Ibrahima [place] [id number] Chan[place] [id number] Profsamirio [phone] nal 092 Building 2020-12-11 2020-12-11 Outpatient CASTANEDA [facility] [id number] Univers 14:17:31 23:59:00 JOEY [facility] 2020-10-03 2020-10-03 Outpatient Matthew BILLY [facility] [id number] Univers 11:00:00 11:00:00 DAMIAN [id number] [facility] 2020-05-21 2020-05-21 Outpatient [facility]C [facility] [id number] [facility] 2020-05-21 2020-05-21 Outpatient STLMLC [facility] [id number] [facility]00 [facility] Clinics 2018-11-08 2018-11-08 [facility] [id number] 11:45:00 11:45:00 [facility] l [facility] Results Test Description Test Time Test Comments Results Result [facility] e Comments FINE NEEDLE Medical Cytology Report ASPIRATION BY 1 CLINICIAN 16:25:00 Case: [id number] Authorizing Provider: Holly Mckeon Collected: 12/28/2018 09Glenis Estrella MD Ordering Location: [facility] Endoscopy Received: 12/28/2018 1103 Services Pathologist: Salvador Begum MD Specimen: Pancreas PANCREAS CYST FNA BY CLINICIAN (CYTOSPINS AND CELL BLOCK OF ASPIRATE): - NEGATIVE FOR MALIGNANCY - The mucin stain is negative Signing Pathologist Direct Phone Line: [phone] signed by Salvador Begum MD on 12/29/2018 at 4:25 PMThe mucin stain is negative and the control slide shows positive staining as expected.20204, 63332, 20008Gtvr cysts in the pancreas, largest measuring 2.0 cmPANCREAS CYST FNA27 mls in cytorich red; 4 cytospins, 1 mucin stain, cell blockCollected: [id number]: [id number] interpretation of this case included the use of immunohistochemistry or special stains. MUCINImmunohistochemistry technical testing was performed at [facility], Pathology Laboratory where it was developed [...] qualified to perform high complexity clinical laboratory testing.[facility], Department of Pathology, [address] [place] [address], [facility], [address] [place] [address], [facility], Department of [facility]ology, [address] [place] [address], TISSUE EXAM Surgical Pathology Report 1 10:28:00 Case: [id number] Authorizing Provider: Holly Mckeon Collected: 12/28/2018 0924 MD Delores Ordering Location: [facility] Endoscopy Received: 12/28/2018 1253 Services Pathologist: Kurtis Luna MD Specimen: Ampulla PART A AMPULLARY BIOPSY:PARTIALLY DENUDED NON-NEOPLASTIC SMALL INTESTINAL MUCOSA WITHOUT SIGNIFICANT HISTOPATHOLOGIC ALTERATION.NEGATIVE FOR DYSPLASIA OR INVASIVE CARCINOMA. Signing Pathologist Direct Phone Line: [phone] signed by Kurtis Luna MD on 12/29/2018 at 10:28 [id number] pancreatic lesionampullaThe container is labeled "ampulla" and [...] this type of specimen.FINE NEEDLE ASPIRATE (FNA) [id number] 13:00:00 Test Item Value Reference Range Interpretation Comments CYTOLOGY RESULT POINTER See Separate Report (BEAKER) (test code = 2629)
[2021-12-01] MEDS ORDERED: METHYLPREDNISOLONE 125 MG INJ ONE (23:39)
[2021-12-01] MEDS ORDERED: IPRATROPIUM BROM 0.5MG/2.5ML ONE (23:40)
[2021-12-01] MEDS ORDERED: ALBUTEROL 2.5 MG/3 ML NEB SOL ONE (23:40)
[2021-12-01 23:48] LABS: Protime INR 1.06
[2021-12-01 23:51] LABS: Hematocrit 42.1 % (36.0-45.0); Lymphocytes % 10.5 % (15.3-44.8); MPV 9.3 fL (7.6-11.3); RBC Red Blood Cell Count 4.63 M/uL (3.86-4.86)
[2021-12-02 00:14] LABS: ALT/SGPT 19 U/L (12-78); AST/SGOT 16 U/L (15-37); Albumin 3.9 g/dL (3.4-5.0); Alkaline Phosphatase 79 U/L (45-117); BUN Blood Urea Nitrogen 6 mg/dL (7-18); Bilirubin Direct 0.1 mg/dL (0-0.2); Bilirubin Total 0.4 mg/dL (0.2-1.0); Glucose Level 113 mg/dL (74-106); Lipase 45 U/L (73-393); Magnesium 1.9 mg/dL (1.8-2.4); NT PRO-BNP 58 pg/mL (<125); Potassium 3.9 mmol/L (3.5-5.1); Protein, Total 8.2 g/dL (6.4-8.2); Sodium Level 140 mmol/L (136-145); Troponin High Sensitivity 16.2 pg/mL (<58.9)
[2021-12-02] MEDS ORDERED: NA CHLORIDE 0.9% 500 ML ONE (00:15)
[2021-12-02 00:16] LABS: Bicarbonate 42 mmol/L (21-32)
[2021-12-02 00:56] LABS: SARS-COV-2 RT PCR NEGATIVE (NEGATIVE)
--- NOTE | 2021-12-02 01:34 | RAD REPORT ---
EXAM DESCRIPTION: RAD - Chest Single View - 12/01/2021 11:49 pm CLINICAL HISTORY: Cough;SOB Chest pain. COMPARISON: Chest Single View dated 10/28/2021; Chest Single View dated 04/25/2021; Chest Single View dated 12/27/2020; Chest Single View dated 08/13/2020 FINDINGS: Portable technique limits examination quality. Emphysematous lung markings are noted. The heart is mildly prominent. No displaced fractures. IMPRESSION: COPD.
[2021-12-02 02:00] LABS: Blood Gas Oxyhemoglobin 96.5 % (94-97); Blood O2 Saturation 98.7 % (92-98.5)
--- NOTE | 2021-12-02 02:38 | P.HP ---
Certification for Inpatient Patient admitted to: Inpatient With expected LOS: >2 Midnights Patient will require the following post-hospital care: None Practitioner: I am a practitioner with admitting privileges, knowledge of patient current condition, hospital course, and medical plan of care. Services: Services provided to patient in accordance with Admission requirements found in Title 42 Section 412.3 of the Code of Federal Regulations Patient History Date of Service: 12/02/21 Reason for admission: Respiratory failure History of Present Illness: 66-year-old -Polish female with history of end-stage COPD on chronic home oxygen, hypertension, GERD presents emergency department for shortness of breath along with increased secretions. Patient was found to be in hypercapnic respiratory failure with her ABG showing PCO2 of 126 pH of 7.18. Patient was placed on BiPAP which she is responding well to her CO2 has decreased significantly already, she is undergoing CT scan for complaint of abdominal pain as well which is pending at this time. ED provider wishes to admit for further evaluation and management of her acute on chronic hypoxic/hypercapnic respiratory failure. Allergies butorphanol tartrate [From Stadol] Allergy (Severe, Verified 03/15/21 14:55) seizures magnesium sulfate Allergy (Severe, Verified 03/15/21 14:55) Anaphylaxis Home Medications: Amlodipine Besylate [Norvasc] 5 mg PO DAILY 08/12/12 Pantoprazole Sodium [Protonix] 40 mg PO DAILY 08/12/12 predniSONE [Prednisone*] 10 mg PO DAILY 07/02/17 Hydrocodone/Acetaminophen [Hydrocodone-Acetamin 7.5-325] 1 tab PO TID PRN 12/27/20 Budesonide/Formoterol Fumarate [Symbicort 160-4.5 Mcg Inhaler] 2 puff PO PRN PRN 10/29/21 Gabapentin 1 cap PO TID 10/29/21 acetaZOLAMIDE [Diamox*] 125 mg PO BID 30 Days #60 tab 10/30/21 predniSONE [Prednisone*] 20 mg PO BID 3 Days #6 tab 10/30/21 - Past Medical/Surgical History Diabetic: No -: Hypertension -: Hepatitis C-treated -: COPD -: Anxiety -: Hernia -: home 02 -: Stenosis -: HX OF UTI -: Cholecystectomy -: Right ankle surgery -: Hernia Repair Psychosocial/ Personal History: Lives at home alone - Family History Mother -: Hypertension, Diabetes Father -: Hypertension, Diabetes - Social History Smoking Status: Former smoker Alcohol use: Yes CD- Drugs: No Caffeine use: Yes Place of Residence: Home Review of Systems 10-point ROS is otherwise unremarkable Respiratory: Cough, Shortness of Breath, Sputum Gastrointestinal: Abdominal Pain Physical Examination - Physical Exam General: Alert, In no apparent distress HEENT: Atraumatic, PERRLA, Mucous membr. moist/pink, EOMI, Sclerae nonicteric Neck: Supple, 2+ carotid pulse no bruit, No LAD, Without JVD or thyroid abnormality Respiratory: Diminished Cardiovascular: Regular rate/rhythm, Normal S1 S2 Gastrointestinal: Normal bowel sounds, No tenderness Musculoskeletal: No tenderness Integumentary: No rashes Neurological: Normal speech, Normal strength at 5/5 x4 extr, Normal tone, Normal affect - Studies Laboratory Data (last 24 hrs) 12/01/21 23:33: PT 11.7, INR 1.06 12/01/21 23:33: WBC 9.1, Hgb 12.8, Hct 42.1, Plt Count 212 12/01/21 23:33: Sodium 140, Potassium 3.9, BUN 6 L, Creatinine 0.41 L, Glucose 113 H, Magnesium 1.9, Total Bilirubin 0.4, AST 16, ALT 19, Alkaline Phosphatase 79, Lipase 45 L Assessment and Plan - Plan Assessment: Acute on chronic hypoxic/hypercapnic respiratory failure secondary to COPD with exacerbation Hypertension GERD Anxiety Plan: Acute on chronic hypoxic/hypercapnic respiratory failure secondary to COPD with exacerbation: ABG improving with BiPAP continue BiPAP throughout the evening, pulmonology consulted scheduled steroids, as needed nebulizer treatments. Patient with home oxygen. Hypertension: Continue home medications GERD:Continue home medications Anxiety:Continue home medications DVT PPX: Lovenox Code status:full Discharge Plan: Home Plan to discharge in: 48 Hours - Advance Directives Does patient have a Living Will: No Does patient have a Durable POA for Healthcare: No - Code Status/Comfort Care Code Status Assessed: Yes (Full code) Critical Care: No Time Spent Managing Pts Care (In Minutes): 55
--- NOTE | 2021-12-02 02:48 | ER ---
Nurse's Notes [facility] Name: Mila Whiting Age: 66 yrs Sex: Female : 1955 Arrival Date: 12/01/2021 Time: 22:19 Bed 7 Private MD: Diagnosis: COPD/ Chronic obstructive pulmonary disease with (acute) exacerbation Presentation: 12/01 22:19 Chief complaint: EMS states: Pt called EMS due to difficulty breathing x2 days. Pt is jb4 reporting abdominal pain, is having thick mucous secretions when coughing. Lungs are CTA GAMA. placed on NRB. Coronavirus screen: Client presents with at least one sign or symptom that may indicate coronavirus-19. Standard/surgical mask placed on the client. Ebola Screen: No symptoms or risks identified at this time. Initial Sepsis Screen: Does the patient meet any 2 criteria? HR > 90 bpm. Yes Does the patient have a suspected source of infection? No. Patient's initial sepsis screen is negative. Risk Assessment: Do you want to hurt yourself or someone else? Patient reports no desire to harm self or others. Onset of symptoms was December 01, 2021. Transition of care: patient was not received from another setting of care. 22:19 Method Of Arrival: EMS: [facility] jb4 22:19 Acuity: CRISTY 2 jb4 Historical: - Allergies: 22:22 liquid magnesium; jb4 22:22 Stadol; jb4 - PMHx: 22:22 acid reflux; Anxiety; COPD; Home O2 4 Lpm; Hypertension; spinal stenosis; jb4 - PSHx: 22:22 Cholecystectomy; hernia repair; right ankle sx; jb4 - Immunization history:: Adult Immunizations up to date. - Social history:: Smoking status: unknown. Screenin:30 Abuse screen: Denies threats or abuse. Nutritional screening: No deficits noted. jb4 Tuberculosis screening: No symptoms or risk factors identified. Fall Risk Secondary diagnosis (15 points) IV access (20 points). Mental Status- Overestimates/Forgets Limitations (15 pts.). Total Valdes Fall Scale indicates High Risk Score (45 or more points). Fall prevention measures have been instituted. Side Rails Up X 2 Placed Close to Nursing Station Frequent Obs/Assessments Occuring Family Present and informed to notify staff if the need to leave the bedside As available patient and family educated on Fall Prevention Program and Strategies. Assessment: 22:30 General: Appears in no apparent distress. uncomfortable, Behavior is cooperative, jb4 anxious. Pain: Denies pain. Neuro: Level of Consciousness is awake, obeys commands, lethargic, Oriented to person, place, time, situation. Cardiovascular: Patient's skin is warm and dry. Respiratory: Airway is patent Respiratory effort is even, labored, Respiratory pattern is regular, symmetrical, Sputum is thick, clear. GI: Reports upper abdominal pain, incontinence. : No signs and/or symptoms were reported regarding the genitourinary system. EENT: No signs and/or symptoms were reported regarding the EENT system. Derm: Skin is intact, Skin is dry, Skin is normal. Musculoskeletal: Circulation, motion, and sensation intact. Range of motion: intact in all extremities. 23:47 Reassessment: Patient appears in no apparent distress at this time. Patient and/or jb4 family updated on plan of care and expected duration. Pain level reassessed. Pt suctioned, remains lethargic. Responds to verbal stimuli but is difficult to arouse. Is able to spit thick mucus secretions, requiring assistance from suctioning at times. Respirations are no even and unlabored. Pt refused straight cath, provider notified, no new orders at this time. 12/02 00:30 Reassessment: No changes from previously documented assessment. jb4 02:00 Reassessment: Patient appears in no apparent distress at this time. Patient and/or jb4 family updated on plan of care and expected duration. Pain level reassessed. Remains lethargic. Respirations remain even and unlabored, continues to awaken to verbal stimuli. pt suctioned. 03:00 Reassessment: Patient appears in no apparent distress at this time. Pt remains jb4 lethargic. is now more easily arousable to verbal stimuli. Pt suctioned. Sputum remains thick and clear. Respirations remain even and unlabored. Is not reporting pain at this time Report given to CARLOS Can. Vital Signs: 12/01 22:19 BP 138 / 83; Pulse 110; Resp 24; Temp 97.8(TE); Pulse Ox 100% on 5 lpm NC; Weight 63.5 jb4 kg (R); 23:45 BP 148 / 77; Pulse 105; Resp 18; Pulse Ox 100% on R/A; jb4 12/02 01:00 BP 117 / 47; Pulse 109; Resp 19; Pulse Ox 99% on BiPAP; jb4 02:00 BP 122 / 51; Pulse 102; Resp 19; Pulse Ox 100% on BiPAP; jb4 ED Course: 12/01 22:19 Patient arrived in ED. jb4 22:19 Mj Dawkins, RN is Primary Nurse. jb4 22:19 Arm band placed on right wrist. jb4 22:20 Jaycob Manzo MD is Attending Physician. mh7 22:22 Triage completed. jb4 23:12 Missed attempt(s): 20 gauge in right antecubital area. Bleeding controlled, band aid oe applied, catheter tip intact. 23:13 Missed attempt(s): 20 gauge in left antecubital area. Bleeding controlled, band aid oe applied, catheter tip intact. 23:30 Missed attempt(s): 24 gauge Bleeding controlled, band aid applied, catheter tip intact. tw5 23:48 Initial lab(s) drawn, by ED staff, sent to lab. Inserted saline lock: 22 gauge in left jb4 forearm, using aseptic technique. Blood collected. 23:51 XRAY Chest (1 view) In Process Unspecified. EDMS 12/02 02:16 CT Abd/Pelvis - Without Contrast In Process Unspecified. EDPR 02:46 Matt Krishnan MD is Hospitalizing Provider. [facility] 05:35 Sudarshan Loja is Hospitalizing Provider. la1 10:55 No provider procedures requiring assistance completed. [facility] Administered Medications: 12/01 23:44 Drug: AtroVENT (ipratropium) Aerosol 0.5 mg Route: Inhalation; jb4 23:44 Drug: SOLU-Medrol (methylPrednisoLONE) 125 mg Route: IVP; Site: left forearm; jb4 23:45 Drug: Albuterol 2.5 mg Route: Inhalation; jb4 12/02 00:16 Drug: NS 0.9% 500 ml Route: IV; Rate: bolus; Site: left forearm; jb4 Outcome: 02:47 Decision to Hospitalize by Provider. 7 10:55 Admitted to Tele accompanied by tech, via wheelchair, with oxygen, Report called to [facility] sandie 10:55 Condition: improved 10:55 Instructed on the need for admit. 11:51 Patient left the ED. iw Signatures: Dispatcher [employer] EDMS Delia Marcos RN RN iw Andres Shields, ORTHOPEDIC BRACE MAKER-C ORTHOPEDIC BRACE MAKER-Cla1 Mj Dawkins, RN RN jb4 Gagan [place], MD MD 7 Roselyn Good 5 Kaila Lambert, CARLOS RN jh6 Corrections: (The following items were deleted from the chart) 00:16 12/01 22:30 General: Appears in no apparent distress. uncomfortable, Behavior is jb4 cooperative, anxious, jb4 12/02 00:16 12/01 22:30 Neuro: Level of Consciousness is awake, alert, obeys commands, Oriented to jb4 person, place, time, situation, jb4 12/02 02:35 12/01 23:47 Reassessment: Patient appears in no apparent distress at this time. Patient jb4 and/or family updated on plan of care and expected duration. Pain level reassessed. Patient is alert, oriented x 3, equal unlabored respirations, skin warm/dry/pink. jb4 12/02 03:52 12/01 23:47 Reassessment: Patient appears in no apparent distress at this time. Patient jb4 and/or family updated on plan of care and expected duration. Pain level reassessed. Patient is alert, oriented x 3, equal unlabored respirations, skin warm/dry/pink. Pt suctioned jb4 12/02 03:52 00:30 Reassessment: Patient appears in no apparent distress at this time. Patient jb4 and/or family updated on plan of care and expected duration. Pain level reassessed. Patient is alert, oriented x 3, equal unlabored respirations, skin warm/dry/pink. jb4 03:52 02:00 Reassessment: Patient appears in no apparent distress at this time. Patient jb4 and/or family updated on plan of care and expected duration. Pain level reassessed. Patient is alert, oriented x 3, equal unlabored respirations, skin warm/dry/pink. Pt suctioned jb4
--- NOTE | 2021-12-02 02:48 | EDPHYS ---
Physician Documentation [facility] [place], [place] Name: Mila Whiting Age: 66 yrs Sex: Female : 1955 Arrival Date: 12/01/2021 Time: 22:19 Bed 7 Private MD: ED Physician Jaycob Manzo HPI: 12/01 23:00 This 66 yrs old Black Female presents to ER via EMS with complaints of Shortness of mh7 breath. 23:00 The patient has shortness of breath at rest. mh7 23:00 Onset: The symptoms/episode began/occurred 2 day(s) ago. mh7 23:00 Duration: The symptoms are intermittent, with no pattern. The patient's shortness of mh7 breath is aggravated by coughing, exertion, is alleviated by nothing. Associated signs and symptoms: Pertinent positives: non-productive cough, Pertinent negatives: chest pain, diaphoresis, dizziness, fever, hemoptysis, loss of consciousness, nausea, numbness in extremities, visual changes, vomiting. Severity of symptoms: At their worst the symptoms were moderate yesterday, in the emergency department the symptoms have improved moderately. Historical: - Allergies: 22:22 liquid magnesium; jb4 22:22 Stadol; jb4 - PMHx: 22:22 acid reflux; Anxiety; COPD; Home O2 4 Lpm; Hypertension; spinal stenosis; jb4 - PSHx: 22:22 Cholecystectomy; hernia repair; right ankle sx; jb4 - Immunization history:: Adult Immunizations up to date. - Social history:: Smoking status: unknown. ROS: 23:00 Constitutional: Negative for fever, chills, and weight loss, Eyes: Negative for injury, mh7 pain, redness, and discharge, ENT: Negative for injury, pain, and discharge, Neck: Negative for injury, pain, and swelling, Cardiovascular: Negative for chest pain, palpitations, and edema. 23:00 Back: Negative for injury and pain, : Negative for injury, bleeding, discharge, and mh7 swelling, MS/Extremity: Negative for injury and deformity, Skin: Negative for injury, rash, and discoloration, Neuro: Negative for headache, weakness, numbness, tingling, and seizure, Psych: Negative for depression, anxiety, suicide ideation, homicidal ideation, and hallucinations, Allergy/Immunology: Negative for hives, rash, and allergies, Endocrine: Negative for neck swelling, polydipsia, polyuria, polyphagia, and marked weight changes, Hematologic/Lymphatic: Negative for swollen nodes, abnormal bleeding, and unusual bruising. 23:00 Abdomen/GI: Positive for abdominal pain. Exam: 23:00 Head/Face: Normocephalic, atraumatic. Eyes: Pupils equal round and reactive to light, mh7 extra-ocular motions intact. Lids and lashes normal. Conjunctiva and sclera are non-icteric and not injected. Cornea within normal limits. Periorbital areas with no swelling, redness, or edema. Neck: Trachea midline, no thyromegaly or masses palpated, and no cervical lymphadenopathy. Supple, full range of motion without nuchal rigidity, or vertebral point tenderness. No Meningismus. Chest/axilla: Normal chest wall appearance and motion. Nontender with no deformity. No lesions are appreciated. 23:00 Back: No spinal tenderness. No costovertebral tenderness. Full range of motion. Skin: Warm, dry with normal turgor. Normal color with no rashes, no lesions, and no evidence of cellulitis. MS/ Extremity: Pulses equal, no cyanosis. Neurovascular intact. Full, normal range of motion. Neuro: Awake and alert, GCS 15, oriented to person, place, time, and situation. Cranial nerves II-XII grossly intact. Motor strength 5/5 in all extremities. Sensory grossly intact. Cerebellar exam normal. Normal gait. Psych: Awake, alert, with orientation to person, place and time. Behavior, mood, and affect are within normal limits. 23:00 Constitutional: The patient appears in no acute distress, alert, awake, uncomfortable. 23:00 Cardiovascular: Rate: tachycardic, Rhythm: regular, Pulses: no pulse deficits are appreciated, Heart sounds: normal, normal S1and S2, Edema: is not appreciated, JVD: is not appreciated. 23:00 Respiratory: the patient does not display signs of respiratory distress, Respirations: prolonged exhalation, that is mild, Breath sounds: rhonchi, that are mild, are heard diffusely, Respiratory rate: 18 23:00 Abdomen/GI: Inspection: obese Bowel sounds: normal, in all quadrants, Palpation: moderate abdominal tenderness, in the epigastric area and right upper quadrant, mass, is not appreciated, rebound tenderness, is not appreciated, voluntary guarding, is not appreciated, involuntary guarding, is not appreciated, no appreciated organomegaly, Rectal exam: the exam is deferred, because of patient request, Indicators: McBurney's point is not tender, Galvin's sign is negative, Rovsing's sign is negative, Obturator sign is negative, Psoas sign is negative, Liver: no appreciated palpable abnormalities, Hernia: not appreciated. Vital Signs: 22:19 BP 138 / 83; Pulse 110; Resp 24; Temp 97.8(TE); Pulse Ox 100% on 5 lpm NC; Weight 63.5 jb4 kg (R); 23:45 BP 148 / 77; Pulse 105; Resp 18; Pulse Ox 100% on R/A; 4 12/02 01:00 BP 117 / 47; Pulse 109; Resp 19; Pulse Ox 99% on BiPAP; jb4 02:00 BP 122 / 51; Pulse 102; Resp 19; Pulse Ox 100% on BiPAP; 4 MDM: 02:45 Differential diagnosis: Anemia Anxiety Reaction asthma, Bronchitis CHF exacerbation, 7 Chronic Obstructive Pulmonary Disease Myocardial Infarction pneumonia, Pneumothorax Psychogenic pulmonary edema. Data reviewed: vital signs, nurses notes, old medical records, lab test result(s), cardiac enzymes, CBC, electrolytes, urinalysis, EKG, radiologic studies, plain films. Data interpreted: Pulse oximetry: on BiPAP is 100 %. Interpretation: acceptable. Counseling: I had a detailed discussion with the patient and/or guardian regarding: the historical points, exam findings, and any diagnostic results supporting the discharge/admit diagnosis, the presence of at least one elevated blood pressure reading (>120/80) during this emergency department visit, lab results, radiology results, the need for further work-up and treatment in the hospital. Response to treatment: the patient's symptoms have mildly improved after treatment. 02:47 Patient medically screened. [facility] 12/01 22:53 Order name: Basic Metabolic Panel; Complete Time: 00:22 [facility] 12/01 22:53 Order name: CBC with Diff; Complete Time: 23:59 [facility] 12/01 22:53 Order name: LFT's; Complete Time: 00:22 [facility] 12/01 22:53 Order name: Magnesium; Complete Time: 00:22 [facility] 04/03 22:53 Order name: NT PRO-BNP; Complete Time: 00:22 [facility] 12/01 22:53 Order name: PT-INR; Complete Time: 23:59 [facility] 12/01 22:53 Order name: Troponin HS; Complete Time: 00:22 [facility] 12/01 22:53 Order name: Lipase; Complete Time: 00:22 [facility] 12/01 22:54 Order name: COVID-19/FLU A+B (Document "Date of Onset" if Symptomatic); Complete Time: [facility] 02:19 12/02 02:00 Order name: ABG Arterial Blood Gas [facility] 12/01 22:24 Order name: Cardiac monitoring; Complete Time: 22:[address] [facility] 12/01 22:24 Order name: EKG - Nurse/Tech; Complete Time: 22:[address] [facility] 12/01 22:24 Order name: O2 Per Protocol; Complete Time: 22:[address] [facility] 12/01 22:53 Order name: XRAY Chest (1 view); Complete Time: 02:19 [facility] 12/01 22:53 Order name: EKG; Complete Time: 22:54 [facility] 12/02 01:02 Order name: CT Abd/Pelvis - Without Contrast [facility] 12/02 03:21 Order name: ABG Arterial Blood Gas [facility] 12/01 22:24 Order name: O2 Sat Monitoring; Complete Time: 22:[address] [facility] Administered Medications: 12/01 23:44 Drug: AtroVENT (ipratropium) Aerosol 0.5 mg Route: Inhalation; [facility] 23:44 Drug: SOLU-Medrol (methylPrednisoLONE) 125 mg Route: IVP; Site: left forearm; [facility] 23:45 Drug: Albuterol 2.5 mg Route: Inhalation; [facility] 12/02 00:16 Drug: NS 0.9% 500 ml Route: IV; Rate: bolus; Site: left forearm; jb4 Disposition Summary: 12/02/21 02:47 Hospitalization Ordered Hospitalization Status: Inpatient Admission [facility] Condition: Stable [facility] Problem: an acute exacerbation [facility] Symptoms: have improved [facility] Bed/Room Type: Standard [facility] Provider: Sudarshan Loja(12/02/21 05:35) la1 Location: Telemetry/MedSurg (Inpatient)(12/02/21 10:01) bd Room Assignment: [facility](12/02/21 10:01) bd Diagnosis - COPD/ Chronic obstructive pulmonary disease with (acute) exacerbation [facility] Forms: - Medication Reconciliation Form [facility] - SBAR form [facility] Signatures: Dispatcher [employer] EDMS yaritza PaigeAndres Servin, CASER UP-C CASER UP-Cla1 Lashell Arriola, RN RN cg Mj Dawkins RN RN jb4 Jaycob Manzo MD MD mh7 Corrections: (The following items were deleted from the chart) 00:25 00:05 Abdomen Limited+US.RAD.BRZ ordered. EDPR EDMS 02:59 02:47 Telemetry/MedSurg (Inpatient) 7 cg 02:59 02:47 [facility] cg 05:35 02:47 Matt Krishnan 7 la1 10:01 02:59 [facility] ER HOLD bd 10:01 02:59 ERHOLD- cg bd
[2021-12-02 03:19] LABS: Arterial Blood Carboxyhemoglob 1.3 % (0-1.5); Blood Gas Oxyhemoglobin 85.4 % (94-97); Blood O2 Saturation 87.5 % (92-98.5)
[2021-12-02] MEDS ORDERED: ONDANSETRON 4 MG/2 ML VIAL IV PRN (04:10)
[2021-12-02] MEDS ORDERED: ALBUTEROL 2.5 MG/3 ML NEB SOL NEB PRN ×2 (04:10→09:00)
[2021-12-02] MEDS ORDERED: IPRATROPIUM BROM 0.5MG/2.5ML NEB PRN (04:10)
[2021-12-02] MEDS: ALPRAZOLAM 0.25 MG TABLET PO PRN ×3 (06:09→23:11)
[2021-12-02] MEDS: METHYLPREDNISOLONE 40 MG INJ IV SCH ×3 (09:00→23:51)
[2021-12-02] MEDS ORDERED: DULERA 200/5 (MOMETASONE/FORMOTEROL) INHALER IH SCH (09:00)
[2021-12-02] MEDS: ENOXAPARIN 40 MG/0.4 ML SQ SCH (09:00)
[2021-12-02] MEDS: AMLODIPINE 5 MG TAB PO SCH (09:00)
[2021-12-02] MEDS: acetaZOLAMIDE 250 MG TAB PO SCH (09:00)
[2021-12-02] MEDS: GABAPENTIN 300 MG CAP PO SCH ×3 (09:00→21:54)
[2021-12-02] MEDS ORDERED: acetaZOLAMIDE 250 MG TAB ONE (09:23)
[2021-12-02] MEDS ORDERED: ALPRAZOLAM 0.25 MG TABLET ONE (09:23)
[2021-12-02] MEDS ORDERED: METHYLPREDNISOLONE 40 MG INJ ONE (09:24)
[2021-12-02] MEDS ORDERED: ENOXAPARIN 40 MG/0.4 ML SQ ONE (09:24)
[2021-12-02] MEDS ORDERED: AMLODIPINE 5 MG TAB ONE (09:24)
[2021-12-02] MEDS ORDERED: GABAPENTIN 300 MG CAP ONE (09:24)
--- NOTE | 2021-12-02 11:13 | EKG ---
Test Date: 2021-12-01 Test Time: 22:21:57 Laboratory Inspector: NATALY MEASUREMENT RESULTS: Intervals: Rate: 105 IN: 180 QRSD: 88 QT: 328 QTc: 433 [place]: P: 82 IN: 180 QRS: 87 T: 78 INTERPRETIVE STATEMENTS: Sinus tachycardia Biatrial enlargement Left ventricular hypertrophy Early repolarization Abnormal ECG Compared to ECG 10/28/2021 16:28:19 Atrial abnormality now present Early repolarization now present Sinus rhythm no longer present Sinus arrhythmia no longer present Left posterior fascicular block no longer present ST (T wave) deviation no longer present Electronically Signed On 12-02-21 11:12:07 CDT by Rusty Castillo
--- NOTE | 2021-12-02 11:28 | RAD REPORT ---
EXAM DESCRIPTION: CT Abdomen and Pelvis Without Intravenous Contrast CLINICAL HISTORY: The patient is 66 years old and is Female; ABD PAIN TECHNIQUE: Axial computed tomography images of the abdomen and pelvis without intravenous contrast. Sagittal and coronal reformatted images were created and reviewed. This CT exam was performed usi ng one or more of the following dose reduction techniques: automated exposure control, adjustment o f the mA and/or kV according to patient size, and/or use of iterative reconstruction technique. COMPARISON: CT abdomen and pelvis with contrast October 28, 2021. FINDINGS: Lung bases: Lingular scarring or atelectasis. Heart: Borderline cardiac enlargement. ABDOMEN: Liver: Slightly nodular liver contour raising suspicion for hepatic cirrhosis. Gallbladder and bile ducts: Cholecystectomy without choledocholithiasis visualized. No ductal dilation. Pancreas: Pancreatic body pseudocyst or cystic lesions, incompletely characterized. The largest measures 1.8 cm. No findings to suggest acute pancreatitis. Spleen: Unremarkable. No splenomegaly. Adrenals: Unremarkable. No mass. Kidneys and ureters: Unremarkable. No obstructing stones. No hydronephrosis. Stomach and bowel: Fluid in the lumen of the right colon. No bowel dilatation or obstruction. No findings to suggest colitis or enteritis. Fluid in the gastric lumen without wall thickening. PELVIS: Appendix: The visualized appendix is normal. No pericecal inflammation to suggest acute appendic itis. Bladder: Unremarkable. No stones. Reproductive: Calcified uterine fibroids. No adnexal mass visualized. ABDOMEN and PELVIS: Intraperitoneal space: Minimal free fluid in the left upper quadrant and left paracolic gutter. No free air. Bones/joints: Degenerative disc disease L5-S1. No acute fracture visualized. No dislocation. Soft tissues: Ventral midline abdominal hernias containing fat only. No evidence of edema/incarc eration. Vasculature: Unremarkable. No abdominal aortic aneurysm. Lymph nodes: No pathologically enlarged lymph nodes. IMPRESSION: 1. Cholecystectomy without choledocholithiasis visualized. 2. Pancreatic body pseudocyst or cystic lesions, incompletely characterized. The largest measures 1 .8, although better characterized on the previous exam. No findings to suggest acute pancreatitis. ACR White Paper guidelines (Julio et al. JACR 2017; 14(7):911-923) suggest a contrast-enhanced, pa ncreas-protocol abdominal CT or MR in 6 months or endoscopic ultrasound with fine needle aspiration. 3. Slightly nodular liver contour raising suspicion for hepatic cirrhosis. 4. Additional non-emergent findings as above. Electronically signed by: Kitty Valencia MD 12/02/2021 4:46 AM CDT Due to temporary technical issues with the PACS/Fluency reporting system, reports are being signed by the in house radiologist without review as a courtesy to ensure prompt reporting. The interpreting r adiologist is fully responsible for the content of the report.
[2021-12-02] MEDS ORDERED: HOME MED 1 EA UNK (Budesonide/Formoterol Fumarate [Symbicort 160-4.5 Mcg Inhaler] 10.2 GM PO PRN (11:45)
--- NOTE | 2021-12-02 12:15 | P.CNS ---
Date of Consult: 12/02/21 Reason for Consult: resp failure Chief Complaint: Respiratory failure History of Present Illness: Patient is 66 years of age with terminal COPD multiple comorbidities admitted with worsening dyspnea found to be hypoxic hypercapnic Planing of some productive cough just recently admitted and discharged pliant with therapy Allergies butorphanol tartrate [From Stadol] Allergy (Severe, Verified 03/15/21 14:55) seizures magnesium sulfate Allergy (Severe, Verified 03/15/21 14:55) Anaphylaxis Home Medications: Amlodipine Besylate [Norvasc] 5 mg PO DAILY 08/12/12 Pantoprazole Sodium [Protonix] 40 mg PO DAILY 08/12/12 predniSONE [Prednisone*] 10 mg PO DAILY 07/02/17 Hydrocodone/Acetaminophen [Hydrocodone-Acetamin 7.5-325] 1 tab PO TID PRN 12/27/20 Budesonide/Formoterol Fumarate [Symbicort 160-4.5 Mcg Inhaler] 2 puff PO PRN PRN 10/29/21 Gabapentin 1 cap PO TID 10/29/21 acetaZOLAMIDE [Diamox*] 125 mg PO BID 30 Days #60 tab 10/30/21 predniSONE [Prednisone*] 20 mg PO BID 3 Days #6 tab 10/30/21 - Past Medical/Surgical History Diabetic: No -: Hypertension -: Hepatitis C-treated -: COPD -: Anxiety -: Hernia -: home 02 -: Stenosis -: HX OF UTI -: Cholecystectomy -: Right ankle surgery -: Hernia Repair Psychosocial/ Personal History: Lives at home alone - Family History Mother Medical History: Hypertension, Diabetes Father Medical History: Hypertension, Diabetes - Social History Smoking Status: Unknown if ever smoked Alcohol use: Yes CD- Drugs: No Caffeine use: Yes Place of Residence: Home Review of Systems 10-point ROS is otherwise unremarkable General: Weakness Respiratory: Cough, Shortness of Breath Physical Examination Temp Pulse Resp BP Pulse Ox 98.2 F 117 H 21 H 146/82 H 98 12/02/21 07:36 12/02/21 09:00 12/02/21 07:36 12/02/21 09:00 12/02/21 07:36 General: Alert, Oriented x3 HEENT: Other Respiratory: Diminished, Expiratory wheezes Cardiovascular: No edema, Regular rate/rhythm Gastrointestinal: Normal bowel sounds, Soft and benign Musculoskeletal: No clubbing Integumentary: No rashes, No breakdown Neurological: Normal speech, Normal strength at 5/5 x4 extr Laboratory Data (last 24 hrs) 12/01/21 23:33: PT 11.7, INR 1.06 12/01/21 23:33: WBC 9.1, Hgb 12.8, Hct 42.1, Plt Count 212 12/01/21 23:33: Sodium 140, Potassium 3.9, BUN 6 L, Creatinine 0.41 L, Glucose 113 H, Magnesium 1.9, Total Bilirubin 0.4, AST 16, ALT 19, Alkaline Phosphatase 79, Lipase 45 L - Problems (1) Acute and chronic respiratory failure ([id number]) Current Visit: Yes Status: Acute Plan: Patient is 66 years of age recurrent hospital admission with hypoxic hypercapnic respiratory failure apparently she is compliant with therapy hepatic cirrhosis on CT scan continue with Diamox steroids . HX of OSAon CPAP Qualifiers: Respiratory failure complication: hypoxia and hypercapnia Qualified Code(s): J96.21 - Acute and chronic respiratory failure with hypoxia; J96.22 - Acute and chronic respiratory failure with hypercapnia
[2021-12-02] MEDS: levoFLOXacin 750 MG TAB PO SCH (12:35)
[2021-12-02] MEDS: HYDROCODONE/APAP 7.5/325 MG TAB PO PRN ×2 (12:35→21:57)
--- NOTE | 2021-12-02 13:56 | P.PN ---
Date of Service: 12/02/21 Patient seen and examined. She is doing much better. Mental status has improved PCO2 has also improved. Vitals are stable. Diagnosis Acute respiratory failure with hypercapnia COPD exacerbation Hypertension. Chronic pain syndrome Plan: Continue bronchodilators, IV steroid and antibiotics. Patient seen by pulmonary. Currently weaned off BiPAP and on oxygen by nasal cannula. BiPAP as needed. Continue home medications for chronic pain and hypertension. Continue acetazolamide.
[2021-12-02] MEDS: IPRATROPIUM BROM 0.5MG/2.5ML NEB SCH ×2 (14:40→20:00)
[2021-12-02] MEDS ORDERED: PANTOPRAZOLE 40MG TABLET PO ONE (17:00)
[2021-12-02] MEDS ORDERED: acetaZOLAMIDE 250 MG TAB PO SCH (21:00)
[2021-12-03 00:46] LABS: Urine Appearance Clear (Clear); Urine Bilirubin Negative (Negative); Urine Blood Negative (Negative); Urine Color Yellow (Yellow); Urine Glucose Negative (Negative); Urine Protein Negative (Negative); Urine Specific Gravity >=1.030 (1.005-1.030); Urine Urobilinogen 0.2 mg/dL (0.2-1.0)
[2021-12-03 00:48] LABS: Urine Microscopic Reflex NO UMIC
[2021-12-03] MEDS: IPRATROPIUM BROM 0.5MG/2.5ML NEB SCH ×4 (02:00→20:10)
[2021-12-03 04:34] LABS: Absolute Lymphocytes (CBC) 0.3 K/uL (0.7-4.9); Hematocrit 33.5 % (36.0-45.0); Lymphocytes % 2.7 % (15.3-44.8); MPV 9.7 fL (7.6-11.3); RBC Red Blood Cell Count 3.76 M/uL (3.86-4.86)
[2021-12-03 04:51] LABS: ALT/SGPT 17 U/L (12-78); AST/SGOT 10 U/L (15-37); Albumin 3.1 g/dL (3.4-5.0); Alkaline Phosphatase 55 U/L (45-117); BUN Blood Urea Nitrogen 10 mg/dL (7-18); Bicarbonate 38 mmol/L (21-32); Bilirubin Total 0.4 mg/dL (0.2-1.0); Glucose Level 176 mg/dL (74-106); Potassium 4.1 mmol/L (3.5-5.1); Protein, Total 6.6 g/dL (6.4-8.2); Sodium Level 135 mmol/L (136-145)
[2021-12-03 06:25] LABS: Blood Morphology Comment NOTED (NOT SEEN); Platelet Estimate ADEQ; Stomatocytes 2+
[2021-12-03] MEDS: ENOXAPARIN 40 MG/0.4 ML SQ SCH (08:57)
[2021-12-03] MEDS: ALPRAZOLAM 0.25 MG TABLET PO PRN ×3 (08:58→20:54)
[2021-12-03] MEDS: AMLODIPINE 5 MG TAB PO SCH (08:59)
[2021-12-03] MEDS: GABAPENTIN 300 MG CAP PO SCH ×3 (09:00→20:55)
[2021-12-03] MEDS: HYDROCODONE/APAP 7.5/325 MG TAB PO PRN ×3 (09:00→20:54)
[2021-12-03] MEDS ORDERED: HOME MED 1 EA UNK (Pantoprazole Sodium [Protonix] 20 MG Tablet.Dr) PO SCH (09:00)
[2021-12-03] MEDS: levoFLOXacin 750 MG TAB PO SCH (09:00)
[2021-12-03] MEDS: acetaZOLAMIDE 250 MG TAB PO SCH (09:00)
[2021-12-03] MEDS: METHYLPREDNISOLONE 40 MG INJ IV SCH (09:03)
[2021-12-03] MEDS: PANTOPRAZOLE 40MG TABLET PO SCH (09:04)
--- NOTE | 2021-12-03 10:57 | P.PN ---
Subjective Date of Service: 12/03/21 Chief Complaint: Respiratory failure Patient states she feels better. She is awake and alert and tolerating diet. Oxygen saturations 100% on 2 L by nasal cannula. Physical Examination - Vital Signs Temperature: 97.3 F Blood Pressure: 142/81 Pulse: 96 Respirations: 20 Pulse Ox (%): 99 - Physical Exam General: Alert, Oriented x3, Mild distress (Respiratory) HEENT: Mucous membr. moist/pink Neck: JVD not distended Respiratory: Diminished, Other (No rhonchi or wheezes) Cardiovascular: No edema, Regular rate/rhythm, No murmurs Gastrointestinal: Normal bowel sounds, Soft and benign, Non-distended, No tenderness Musculoskeletal: No swelling, No tenderness Integumentary: No rashes, No cyanosis Neurological: Normal strength at 5/5 x4 extr Assessment And Plan - Current Problems (Diagnosis) (1) Acute respiratory failure with hypercapnia Current Visit: No Status: Acute (2) Anxiety Onset Date: 12/28/17 Current Visit: No Status: Acute (3) COPD exacerbation Onset Date: 12/11/15 Current Visit: No Status: Acute (4) GERD (gastroesophageal reflux disease) Current Visit: No Status: Chronic Qualifiers: Esophagitis presence: without esophagitis (5) Hypertension Onset Date: 12/28/17 Current Visit: No Status: Chronic - Plan Patient seen and evaluated by pulmonary-Dr. Smith. Titrate oxygen to keep SaO2 around 89 to 92% to preserve hypoxic drive. Bronchodilators as needed Continue steroid. Continue oral Levaquin. Dr. Smith recommend outpatient BiPAP. Continue home antihypertensives. Home health.
--- NOTE | 2021-12-03 12:52 | P.PN ---
Subjective Date of Service: 12/03/21 Chief Complaint: Respiratory failure Subjective: Improving (Patient is improving doing well on 2 L nasal cannula oxygen) Review of Systems General: Weakness Respiratory: Shortness of Breath Physical Examination - Vital Signs Temperature: 97.8 F Blood Pressure: 149/70 Pulse: 100 Respirations: 18 Pulse Ox (%): 97 - Physical Exam General: Alert, Oriented x3, Mild distress Respiratory: Clear to auscultation bilaterally, Diminished Cardiovascular: No edema, Regular rate/rhythm Assessment And Plan - Current Problems (Diagnosis) (1) Chronic respiratory failure Current Visit: Yes Status: Acute Qualifiers: Respiratory failure complication: hypoxia and hypercapnia Qualified Code(s): J96.11 - Chronic respiratory failure with hypoxia; J96.12 - Chronic respiratory failure with hypercapnia - Plan Patient has chronic respiratory failure hypoxemia hypercarbia due to COPD/patient will qualify for a noninvasive ventilator to prevent readmissions to the hospital BiPAP at this time is not appropriate is a second admission within the past month is on home oxygen terminal COPD change to p.o. prednisone Discharge Plan: Home Plan to discharge in: 48 Hours
[2021-12-03 12:59] LABS: Arterial Blood Carboxyhemoglob 1.4 % (0-1.5); Blood Gas Oxyhemoglobin 77.6 % (94-97); Blood O2 Saturation 79.7 % (92-98.5)
--- NOTE | 2021-12-03 13:38 | ECHO ---
HEIGHT: 5 ft 5 in WEIGHT: 139 lb 11.2 oz DATE OF STUDY: 12/03/[address]: Finesse Smith MD 2-DIMENSIONAL: YES M.MODE: YES DOPPLER: YES COLOR FLOW: YES TDS: NO PORTABLE: NO DEFINITY: NO BUBBLE STUDY: NO DIAGNOSIS: RESPIRATORY FAILURE CARDIAC HISTORY: CATHERIZATION: NO SURGERY: NO PROSTHETIC VALVE: NO PACEMAKER: NO MEASUREMENTS (cm) DIASTOLIC (NORMALS) SYSTOLIC (NORMALS) IVSd 0.7 (0.6-1.2) LA Diam 2.7 (1.9-4.0) LVEF 60% LVIDd 3.8 (3.5-5.7) LVIDs 2.6 (2.0-3.5) %FS 32% LVPWd 0.8 (0.6-1.2) Ao Diam 2.0 (2.0-3.7) 2 DIMENSIONAL ASSESSMENT: RIGHT ATRIUM: NORMAL LEFT ATRIUM: NORMAL RIGHT VENTRICLE: NORMAL LEFT VENTRICLE: NORMAL TRICUSPID VALVE: NORMAL MITRAL VALVE: NORMAL PULMONIC VALVE: NORMAL AORTIC VALVE: NORMAL PERICARDIAL EFFUSION: NONE AORTIC ROOT: NORMAL LEFT VENTRICULAR WALL MOTION: NORMAL DOPPLER/COLOR FLOW: NORMAL COMMENTS: NORMAL 2D ECHOCARDIOGRAM WITH DOPPLER. NO WALL MOTION ABNORMALITY. NO EFFUSION. TECHNOLOGIST: Sandhya BAUTISTA
[2021-12-03] MEDS: predniSONE 20 MG TAB PO SCH (20:54)
[2021-12-04] MEDS: IPRATROPIUM BROM 0.5MG/2.5ML NEB SCH ×2 (01:25→08:00)
[2021-12-04 04:28] VITALS: BMI 23.3
[2021-12-04 05:20] VITALS: TEMP 97.5
[2021-12-04 05:35] LABS: Absolute Lymphocytes (CBC) 0.4 K/uL (0.7-4.9); Hematocrit 32.8 % (36.0-45.0); Lymphocytes % 3.3 % (15.3-44.8); MPV 9.1 fL (7.6-11.3); RBC Red Blood Cell Count 3.67 M/uL (3.86-4.86)
[2021-12-04 06:52] LABS: ALT/SGPT 38 U/L (12-78); AST/SGOT 36 U/L (15-37); Albumin 3.1 g/dL (3.4-5.0); Alkaline Phosphatase 48 U/L (45-117); BUN Blood Urea Nitrogen 9 mg/dL (7-18); Bicarbonate 38 mmol/L (21-32); Bilirubin Total 0.2 mg/dL (0.2-1.0); Glucose Level 161 mg/dL (74-106); Protein, Total 6.3 g/dL (6.4-8.2); Sodium Level 137 mmol/L (136-145)
[2021-12-04] MEDS: ENOXAPARIN 40 MG/0.4 ML SQ SCH (08:58)
[2021-12-04] MEDS: GABAPENTIN 300 MG CAP PO SCH ×2 (08:58→13:45)
[2021-12-04] MEDS: levoFLOXacin 750 MG TAB PO SCH (08:59)
[2021-12-04] MEDS: PANTOPRAZOLE 40MG TABLET PO SCH (08:59)
[2021-12-04] MEDS: predniSONE 20 MG TAB PO SCH (08:59)
[2021-12-04] MEDS: acetaZOLAMIDE 250 MG TAB PO SCH (08:59)
[2021-12-04] MEDS: AMLODIPINE 5 MG TAB PO SCH (09:00)
[2021-12-04 09:08] VITALS: O2SAT 100
--- NOTE | 2021-12-04 12:07 | P.DS ---
Admission Date: 12/02/21 Discharge Date: 12/04/21 Disposition: DC HOME/HOME HEALTH CARE Discharge Condition: FAIR Reason for Admission: Respiratory failure - Problems (1) Acute respiratory failure with hypercapnia Current Visit: No Status: Acute (2) Anxiety Onset Date: 12/28/17 Current Visit: No Status: Acute (3) COPD exacerbation Onset Date: 12/11/15 Current Visit: No Status: Acute (4) GERD (gastroesophageal reflux disease) Current Visit: No Status: Chronic Qualifiers: Esophagitis presence: without esophagitis (5) Hypertension Onset Date: 12/28/17 Current Visit: No Status: Chronic Brief History of Present Illness: 66-year-old -[place] female with 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 Patient was found to be in hypercapnic respiratory failure with her ABG showing PCO2 of 126 pH of 7.18. Patient was placed on BiPAP which she responded well with decrease in PCO2. Patient admitted for further evaluation and management of her acute on chronic hypoxic/hypercapnic respiratory failure. Hospital Course: Patient admitted to the medical floor and started on IV steroid, scheduled bronchodilators, and BiPAP therapy. PCO2 significantly improved, patient shortness of breath improved to baseline and was weaned off BiPAP to oxygen by nasal cannula. She uses CPAP during sleep which was continued during the hospital stay She was seen and evaluated by pulmonary-Dr. Smith who recommended outpatient NIV. Patient also treated with oral Levaquin for suspected infective bronchitis Patient has clinically improved, has received NIV and deemed stable for discharge. Vital Signs/Physical Exam: Temp Pulse Resp BP Pulse Ox 97.5 F 88 20 111/57 L 100 12/04/21 08:00 12/04/21 08:00 12/04/21 08:00 12/04/21 09:00 12/04/21 08:00 General: Alert, In no apparent distress, Oriented x3 HEENT: Mucous membr. moist/pink, Sclerae nonicteric Neck: JVD not distended Respiratory: Diminished, Other (No crackles) Cardiovascular: No edema, Regular rate/rhythm, Normal S1 S2 Gastrointestinal: Soft and benign, Non-distended, No tenderness Musculoskeletal: No swelling Integumentary: No rashes, No cyanosis Neurological: Normal strength at 5/5 x4 extr Laboratory Data at Discharge: WBC 10.7 K/uL (4.3-10.9) 12/04/21 05:10 Hgb 10.3 g/dL (12.0-15.0) L 12/04/21 05:10 Hct 32.8 % (36.0-45.0) L 12/04/21 05:10 Plt Count 205 K/uL (152-406) 12/04/21 05:10 PT 11.7 SECONDS (9.5-12.5) 12/01/21 23:33 INR 1.06 12/01/21 23:33 Sodium 137 mmol/L (136-145) 12/04/21 05:10 Potassium 4.0 mmol/L (3.5-5.1) 12/04/21 05:10 BUN 9 mg/dL (7-18) 12/04/21 05:10 Creatinine 0.47 mg/dL (0.55-1.3) L 12/04/21 05:10 Glucose 161 mg/dL (74-106) H 12/04/21 05:10 Magnesium 1.9 mg/dL (1.8-2.4) 12/01/21 23:33 Total Bilirubin 0.2 mg/dL (0.2-1.0) 12/04/21 05:10 AST 36 U/L (15-37) 12/04/21 05:10 ALT 38 U/L (12-78) 12/04/21 05:10 Alkaline Phosphatase 48 U/L (45-117) 12/04/21 05:10 Lipase 45 U/L (73-393) L 12/01/21 23:33 Home Medications: Amlodipine Besylate [Norvasc] 5 mg PO DAILY 08/12/12 Pantoprazole Sodium [Protonix] 40 mg PO DAILY 08/12/12 predniSONE [Prednisone*] 10 mg PO DAILY 07/02/17 Hydrocodone/Acetaminophen [Hydrocodone-Acetamin 7.5-325] 1 tab PO TID PRN 12/27/20 Budesonide/Formoterol Fumarate [Symbicort 160-4.5 Mcg Inhaler] 2 puff PO PRN PRN 10/29/21 Gabapentin 1 cap PO TID 10/29/21 acetaZOLAMIDE [Diamox*] 125 mg PO BID 30 Days #60 tab 10/30/21 Albuterol Neb [Proventil 0.083% Neb Soln] 2.5 mg NEB [id number] PRN #120 amp 12/04/21 Ipratropium Neb [Atrovent*] 0.5 mg NEB [id number] #120 amp 12/04/21 levoFLOXacin [Levaquin*] 750 mg PO DAILY #3 tab 12/04/21 predniSONE [Deltasone*] 10 mg PO DAILY #30 tab 12/04/21 New Medications: Ipratropium Neb [Atrovent*] 0.5 mg NEB [id number] #120 amp Albuterol Neb [Proventil 0.083% Neb Soln] 2.5 mg NEB [id number] PRN #120 amp PRN Reason: Shortness Of Breath predniSONE [Deltasone*] 10 mg PO DAILY #30 tab levoFLOXacin [Levaquin*] 750 mg PO DAILY #3 tab Diet: AHA Activity: Ad zena Followup: Finesse Smith MD [ACTIVE - CAN ADMIT] - 1-2 Weeks Unknown,U [Primary Care Provider] - 1 Week Time spent managing pt's care (in minutes): 36
[2021-12-04 12:32] VITALS: BP 113/60
[2021-12-04] MEDS: ALPRAZOLAM 0.25 MG TABLET PO PRN (13:43)
[2021-12-04] MEDS: HYDROCODONE/APAP 7.5/325 MG TAB PO PRN (13:43)
== END 2021-12-04 14:51 | disposition home health service (06) | DRG 189 ==
LOC: ER 22:16 → ERHOLD 12-02 02:36 → 2ND 12-02 11:07
PROVIDERS: ADMIT Internal Medicine; ATTEND Internal Medicine
PROC: 5A09457 Assistance with Respiratory Ventilation, 24-96 Consecutive Hours, Continuous Positive Airway Pressure (ICD-10-PCS; principal; 2021-12-02)
DX: J96.22 Acute and chronic respiratory failure with hypercapnia (principal); J44.1 Chronic obstructive pulmonary disease with (acute) exacerbation; J96.21 Acute and chronic respiratory failure with hypoxia; Z99.81 Dependence on supplemental oxygen; I10 Essential (primary) hypertension; K21.9 Gastro-esophageal reflux disease without esophagitis; F41.9 Anxiety disorder, unspecified; Z86.19 Personal history of other infectious and parasitic diseases; G89.4 Chronic pain syndrome; Z87.891 Personal history of nicotine dependence; Z20.822 Contact with and (suspected) exposure to COVID-19
CPT/HCPCS: 0240U; 36415; 71045; 74176; 80048; 80053; 80076; 81003; 82805; 83690; 83735; 83880; 84484; 85025; 85610; 93005; 93306; 94640; 94660; 94760; 96374; 99285; J1650; J2405; J2920; J2930; J3535; J7040; J7512; Q9967

== ENCOUNTER 2021-12-22 09:52 | Emergency (ER) | payer OTHER ==
--- OUTSIDE RECORDS SUMMARY | 2021-12-22 09:56 | XMS REPORT | Continuity of Care Document ---
:1955 Author Organization [facility] t Address [address] [place] [address] Care Team Providers Name Role Phone Victor Hugo Justice MD Primary Care Physician Jose Alfredo Guido Attending Clinician Unavailable VICTOR HUGO BILLY Attending Clinician Unavailable Victor Hugo Billy MD Attending Clinician Yemi Sommer MD Attending Clinician LINDA MCKEON Attending Clinician Unavailable LINDA MCKEON Admitting Clinician Unavailable Payers Payer Name Policy Type Policy Number Effective Date Expiration Date Broderick cohen [facility] [id number] 2020 ACCESS/LIBERTY 00:00:00 [facility] [id number] 2021 PLUS 00:00:00 Problems Condition Condition Condition Status Onset [...] M INGREDI 3-05 ity of 00:00: [place] [facility] Butorpha Propensi Active Anaphylaxis Seizures Univers nol ty to 6-05 per pt ity of Tartrate adverse 00:00: [place] reaction 00 Medical s Branch BUTORPHA DRUG Active High Unknown-Cmnt Un nathen NOL INGREDI 6-05 ity of TARTRATE 00:00: [place] 00 Medical Branch Stadol Adverse Active Info Not [facility] Reaction Available [facility] Magnesiu Adverse Active Info Not [facility] Reaction Available [facility] Social History Social Habit Start Date Stop Date Quantity Comments Source History of tobacco Cigarette Smoker University of use [facility] Exposure to Not sure University of SARS-CoV-2 (event) [place] [facility] History SDNV University o f Alcohol Frequency [facility] edical Branch History [facility] University o f Alcohol Std Drinks [place] [facility] [place] History [facility] o f Alcohol Binge [place] [facility] al [facility] Sex Assigned At [facility] Tobacco use and 2018-12-28 2018-12-28 Never used [facility] kes - exposure 00:00:00 00:00:00 [facility] Alcohol intake 2018-12-28 2018-12-28 [facility]00 non-drinker of Medical Ce nter alcohol (finding) Tobacco Comment 2018-12-27 2018-12-27 quit 2 yrs ago JESSICA Villafana yvette Chilel - 00:00:00 00:00:00 [facility] Cigarettes smoked 2015-12-30 2015-12-30 Univers ity of current (pack per 00:00:00 00:00:00 [facility] ) - Reported Branch Cigarette 2015-12-30 2015-12-30 University of pack-years 00:00:00 00:00:00 [facility] Alcohol Comment 2007-02-02 2007-02-02 social drinker Unive rsity of 00:00:00 00:00:00 [facility] Smoking Status Start Date Stop Date Source Former smoker 2018-12-28 00:00:00 2018-12-28 00:00:00 [facility] Medications Ordered Filled Start Stop Current Ordering Indication Dosage Frequency Signature Comments Components Source Medication Medication Date Date Medication? Clinician (SIG) Name Name acetaZOLAMI Yes TAKE 1/2 Un nathen DE 250 mg 3-02 TABLE BY ity of tablet 00:00: MOUTH 2 [place] 00 TIMES A Medical DAY Branch AMLODIPINE Yes [id number] TAKE 1 Un nathen 5 mg tablet 2-14 TABLET BY ity of 00:00: MOUTH [place] 00 EVERY DAY Medical Branch diazePAM 2020-08 Yes [id number] 5mg Take 1 Uni vers (VALIUM) 5 2-31 tablet by ity of mg tablet 00:00: mouth 3 [place] 00 (three) Medical times Branch daily as needed for Anxiety. ZENPEP 2020-08 Yes Univers 40,000-126, 2-14 ity of 000- 00:00: [place] 168,000 00 Medical unit CpDR Branch pantoprazol 2020-08 Yes [id number] 40mg Take 1 Univers e 40 mg EC 0-04 tablet by ity of tablet 00:00: mouth [place] 00 daily. Medical Branch predniSONE Yes 5mg Take 5 mg Un nathen 5 mg tablet -13 by mouth. ity of 14:13: [place] 57 Medical Branch baclofen 10 0 2021- No Unive rs mg tablet 12-01- ity of 00:00: 00:00 [place] 00 :00 Medical Branch HYDROcodone Yes 1{tbl} Take 1 Un nathen -acetaminop 3-12 tablet by ity of hen 7.5-325 14:37: mouth 3 Shawn as mg per 07 (three) Medical tablet times Branch daily. OXYGEN-AIR Yes by Univers DELIVERY 3-12 Miscellane ity o f SYSTEMS 14:37: ous route. [place] MISC 07 [place] SPIRIVA Yes INHALE 2 Univer s RESPIMAT 2-16 PUFFS BY ity of 2.5 00:00: MOUTH [place] mcg/actuati 00 EVERY DAY Med ical on Mist Branch promethazin Yes 5mL Take 5 mL U nivers e-codeine 7-17 by mouth. ity o f 6.25-10 14:54: [place] mg/5 mL 38 Medical syrup Branch TIOTROPIUM Yes Inhale. [facility] ers BROMIDE 7-17 ity of (SPIRIVA 14:52: [place] RESPIMAT 14 Medical INHALE) Branch MOMETASONE Yes Use in Univ ers FUROATE 7-17 each ity of (NASONEX 14:52: nostril. [place] NASAL) 14 Medical Branch buprenorphi Yes APPLY ONE U nivers ne 10 6-05 PATCH TO ity of mcg/hour 00:00: SKIN ONCE [place] patch 00 A WEEK FOR Medical 28 DAYS Branch aspirin 81 Yes 81mg QD Take [address] MG EC 4-30 by mouth [facility] - tablet 10:34: daily. [address] ALPRAZolam Yes .5mg Take 0.5 [facility] [...] SYSTEMS 10:34: ous route. Medi josé miguel MISC 04 Center Butrans Butrans Yes Na Guido [...] [facility] Yes Na Guido [address] [facility] Allergy Allergy [facility] Cotton Cotton Yes Na Guido [address] [facility] [facility] as needed [facility] Albuterol-I Albuterol-I Yes Na Guido not [facility] pratropium pratropium defined [facility] Alprazolam Alprazolam Yes Na Guido [address] [facility] Symbicort Symbicort Yes Na Guido [address] [facility] Norvasc Norvasc Yes Na Guido [address] [facility] Protonix Protonix Yes Na Guido 1/[address] [facility] PredniSONE PredniSONE Yes Na Guido [address] [facility] [facility] Combivent Combivent Yes Na Guido not [facility] defined [facility] Immunizations Ordered Filled Immunization Date Status Comments [facility] e Immunization Name Name SARS-COV-2 COVID-19 2021-08-30 Completed [facility] MODERNA BOOSTER 00:00:00 [facility] ical VACCINE Branch Vital Signs Vital Name Observation Time Observation Value Comments Source Systolic blood 2021-12-11 16:15:00 144 mm[Hg] Univer [facility] pressure [facility] Diastolic blood 2021-12-11 16:15:00 79 mm[Hg] Unive [facility] Heart rate 2021-12-11 16:15:00 118 /min [facility] Body height 2021-12-11 16:15:00 154.9 cm [facility] Body weight 2021-12-11 16:15:00 64.864 kg [facility] BMI 2021-12-11 16:15:00 27.02 kg/m2 [facility] Oxygen saturation 2021-12-11 16:15:00 99 /min [facility] in Arterial blood [facility] anch by Pulse oximetry Procedures This patient has no known procedures. Plan of Care Planned Activity Planned Date Details Comments Source Future Scheduled 2020-05-[address] [facility] - Test 00:00:00 (#1) [code = [facility] INFLUENZA VACCINE (#1)] Future Scheduled [address] [facility] - Test 00:00:00 (procedure) [code = [facility] 62238321] Future Scheduled [address] Act [facility] - Test 00:00:00 malignant neoplasm Medical C enter of cervix (procedure) [code = 582319833] Future Scheduled [address] - Test 00:00:00 malignant neoplasm Medical C enter of breast (procedure) [code = 807111581] Future Scheduled [address] - Test 00:00:00 malignant neoplasm Medical C enter of colon (procedure) [code = 554644211] Encounters Start End Encounter Admission Attending Care Care Encounter Source Date/Time Date/Time Type Type Clinicians Facility Department ID 2021-09-25 [facility] [id number] 11:46:50 [id number] [facility] 2021-09-25 [facility] [id number] 11:44:44 [id number] [facility] 2022-01-10 2022-01-10 [facility] [id number] Univers 13:00:00 13:00:00 DAMIAN [id number] [facility] 2021-12-11 2021-12-11 [facility] [id number] Univers 11:00:00 11:51:30 [facility] 2021-12-11 2021-12-11 Office [facility] [id number] Univers 11:00:00 11:15:00 Visit [facility] [id number] it y of Victor Hugo BUSBY [id number] Shawn as RIZWANA?BLEA [phone] Vt dical [address] OFFICE BUILDING 2021-03-22 2021-03-22 [facility] [id number] 00:00:00 00:00:00 [facility] [id number] Edward Leslie [id number] Professio [id number] [address] Building One 2021-03-21 2021-03-21 [facility] [id number] 00:00:00 00:00:00 [facility] [id number] Edward Praneeth [id number] Professio [phone] nal 044 Office Building One 2021-02-26 2021-02-26 Office CATHERINE Sommer [id number] 14:45:21 15:57:07 Visit Ibrahima Busby [id number] Burna [id number] Professio [id number] nal 092 Building 2020-05-21 2020-05-21 Outpatient [facility] [id number] [facility]00 [facility] - [facility] Outpat[facility] Clinics 2020-05-21 2020-05-21 Outpatient [facility] [id number] [facility]00 [facility] 2018-11-08 2018-11-08 [facility] [id number] 11:45:00 11:45:00 Antrad Medical [facility] Results Test Description Test Time Test Comments Results Result [facility] e Comments FINE NEEDLE Medical Cytology Report ASPIRATION BY 1 CLINICIAN 16:25:00 Case: [id number] Authorizing Provider: Holly Mckeon Collected: 12/28/2018 09Glenis Estrella MD Ordering Location: [facility] Endoscopy Received: 12/28/2018 1103 Services Pathologist: Salvador Begum MD Specimen: Pancreas PANCREAS CYST FNA BY CLINICIAN (CYTOSPINS AND CELL BLOCK OF ASPIRATE): - NEGATIVE FOR MALIGNANCY - The mucin stain is negative Signing Pathologist Direct Phone Line: [phone] signed by Salvador Begum MD on 12/29/2018 at 4:25 PMThe mucin stain is negative and the control slide shows positive staining as expected.[id number], 83440, 81763Pjyq cysts in the pancreas, largest measuring 2.0 cmPANCREAS CYST FNA27 mls in cytorich red; 4 cytospins, 1 mucin stain, cell blockCollected: [id number]: [id number] interpretation of this case included the use of immunohistochemistry or special stains. MUCINImmunohistochemistry technical testing was performed at [facility], Pathology Laboratory where it was developed and [...] qualified to perform high complexity clinical laboratory testing.[facility], Department of Pathology, [address] [place] [address], [facility], [facility] of [facility]ology, [address] [place] [id number], [facility], Department of Pathology, [address] [place] [id number], TISSUE EXAM Surgical Pathology Report 1 10:28:00 Case: [id number] Authorizing Provider: Holly Mckeon Collected: 12/28/2018 0924 MD Delores Ordering Location: [facility] Endoscopy Received: 12/28/2018 1253 Services Pathologist: Kurtis Luna MD Specimen: Ampulla PART A AMPULLARY BIOPSY:PARTIALLY DENUDED NON-NEOPLASTIC SMALL INTESTINAL MUCOSA WITHOUT SIGNIFICANT HISTOPATHOLOGIC ALTERATION.NEGATIVE FOR DYSPLASIA OR INVASIVE CARCINOMA. Signing Pathologist Direct Phone Line: [phone] signed by Kurtis Luna MD on 12/29/2018 at 10:28 [id number] pancreatic lesionampullaThe container is labeled "ampulla" and [...] this type of specimen.FINE NEEDLE ASPIRATE (FNA) [id number] 13:00:00 Test Item Value Reference Range Interpretation Comments CYTOLOGY RESULT POINTER See Separate Report (RAMEZ) (test code = 2629)
[2021-12-22] MEDS ORDERED: IPRATROPIUM BROM 0.5MG/2.5ML ONE (10:17)
[2021-12-22] MEDS ORDERED: METHYLPREDNISOLONE 125 MG INJ ONE (10:17)
[2021-12-22] MEDS ORDERED: LEVALBUTEROL 1.25 MG/3 ML NEB ONE (10:18)
[2021-12-22 10:33] LABS: Absolute Lymphocytes (CBC) 0.9 K/uL (0.7-4.9); Hematocrit 38.4 % (36.0-45.0); Lymphocytes % 17.7 % (15.3-44.8); MPV 9.4 fL (7.6-11.3); RBC Red Blood Cell Count 4.22 M/uL (3.86-4.86)
[2021-12-22 10:43] LABS: Protime INR 1.02
[2021-12-22 10:51] LABS: ALT/SGPT 18 U/L (12-78); AST/SGOT 12 U/L (15-37); Albumin 3.6 g/dL (3.4-5.0); Alkaline Phosphatase 66 U/L (45-117); BUN Blood Urea Nitrogen 4 mg/dL (7-18); Bilirubin Direct 0.1 mg/dL (0-0.2); Bilirubin Total 0.4 mg/dL (0.2-1.0); CKMB Creatine Kinase MB < 1.0 ng/mL (1.0-3.6); Creatine Phosphokinase 41 U/L (26-192); Glucose Level 110 mg/dL (74-106); Lipase 67 U/L (73-393); Magnesium 1.7 mg/dL (1.8-2.4); NT PRO-BNP 82 pg/mL (<125); Potassium 3.4 mmol/L (3.5-5.1); Protein, Total 7.6 g/dL (6.4-8.2); Sodium Level 140 mmol/L (136-145)
[2021-12-22 10:52] LABS: Bicarbonate > 45 mmol/L (21-32)
[2021-12-22 11:10] LABS: Arterial Blood Carboxyhemoglob 1.5 % (0-1.5); Blood O2 Saturation 86.2 % (92-98.5)
[2021-12-22] MEDS ORDERED: LORazepam 2 MG/ML VIAL ONE (11:24)
--- NOTE | 2021-12-22 12:01 | RAD REPORT ---
EXAM DESCRIPTION: RAD - Chest Single View - 12/22/2021 11:17 am CLINICAL HISTORY: COPD COMPARISON: Portable 12/01/2021 and 10/28/2021 TECHNIQUE: AP portable chest image was obtained 12/22/2021 11:17 am . FINDINGS: Fibrotic lung pattern is present not substantially different from comparison. No focal mas s or consolidation identified. Severity chronic disease could mask early edema or infiltrate. Prominent pericardial fat pads are present. Heart and vasculature are normal. No measurable pleural e ffusion and no pneumothorax. No acute bony abnormality seen. No acute aortic findings suspected. IMPRESSION: COPD pattern not substantially different from comparison. Severity of chronic disease could mask early interstitial edema or infiltrate.
[2021-12-22 12:35] LABS: Blood Morphology Comment NOT SEEN (NOT SEEN); Platelet Estimate ADEQ; White Blood Cell Scan OK (OK)
[2021-12-22 13:36] LABS: Arterial Blood Carboxyhemoglob 1.6 % (0-1.5); Blood Gas Oxyhemoglobin 91.6 % (94-97); Blood O2 Saturation 94.2 % (92-98.5)
--- NOTE | 2021-12-22 14:06 | ER ---
Nurse's Notes [facility] Name: Mila Whiting Age: 66 yrs Sex: Female : 1955 Arrival Date: 12/22/2021 Time: 09:56 Bed 8 Private MD: Diagnosis: COPD/ Chronic obstructive pulmonary disease, unspecified Presentation: 12/22 09:57 Chief complaint: EMS states: SOB began yesterday; uses O2 at home from 2-3 L NC; pt vg1 stated once became SOB increased O2 to 5L; was suppose to use CPAP last night but stated 'wasn't set up right so I didn't use it'. Pt has a productive cough; BG was 110. Coronavirus screen: Vaccine status: Patient reports receiving the 2nd dose of the covid vaccine. Client denies travel out of the [place] in the last 14 days. Client presents with at least one sign or symptom that may indicate coronavirus-19. Standard/surgical mask placed on the client. Ebola Screen: Patient denies exposure to infectious person. Patient denies travel to an Ebola-affected area in the 21 days before illness onset. Initial Sepsis Screen: Does the patient meet any 2 criteria? No. Patient's initial sepsis screen is negative. Does the patient have a suspected source of infection? No. Patient's initial sepsis screen is negative. Risk Assessment: Do you want to hurt yourself or someone else? Patient reports no desire to harm self or others. Onset of symptoms was December 21, 2021. 09:57 Method Of Arrival: EMS: [facility] vg1 09:57 Acuity: CRISTY 3 vg1 Triage Assessment: 10:00 General: Appears in no apparent distress. comfortable, Behavior is calm, cooperative. vg1 Pain: Denies pain. EENT: No signs and/or symptoms were reported regarding the EENT system. Neuro: Level of Consciousness is awake, alert, obeys commands, Oriented to person, place, time, situation. Cardiovascular: Patient's skin is warm and dry. Respiratory: Airway is patent Respiratory effort is even, unlabored, Breath sounds with crackles in left posterior lower lobe Breath sounds are diminished in left posterior upper lobe and right posterior upper lobe. GI: No signs and/or symptoms were reported involving the gastrointestinal system. : No signs and/or symptoms were reported regarding the genitourinary system. Derm: Skin is intact, Skin is pink, warm \\T\\ dry. Musculoskeletal: Circulation, motion, and sensation intact. Historical: - Allergies: 10:00 liquid magnesium; vg1 10:00 Stadol; vg1 - PMHx: 10:00 acid reflux; Anxiety; COPD; Home O2 4 Lpm; Hypertension; spinal stenosis; vg1 - PSHx: 10:00 Cholecystectomy; hernia repair; right ankle sx; vg1 - Immunization history:: Client reports receiving the 2nd dose of the Covid vaccine. - Social history:: Smoking status: Patient denies any tobacco usage or history of. - Family history:: not pertinent. Screenin:05 Abuse screen: Denies threats or abuse. Nutritional screening: No deficits noted. vg1 Tuberculosis screening: No symptoms or risk factors identified. Fall Risk No fall in past 12 months (0 pts). No secondary diagnosis (0 pts). IV access (20 points). Ambulatory Aid- None/Bed Rest/Nurse Assist (0 pts). Gait- Normal/Bed Rest/Wheelchair (0 pts) Mental Status- Oriented to own ability (0 pts). Total Valdes Fall Scale indicates No Risk (0-24 pts). Assessment: 10:33 Reassessment: Patient and/or family updated on plan of care and expected duration. Pain ap3 level reassessed. Patient is alert, oriented x 3, equal unlabored respirations, skin warm/dry/pink. pts neb treatment currently in progress. 10:52 Reassessment: Dr. Kurtz notified of critical lab value. CO2 > 45. ss 11:00 Reassessment: Respiratory at bedside. vg1 11:20 Reassessment: Received VO from Dr Kurtz to administer Ativan 0.5 mg IVP x1. vg1 11:32 Reassessment: Patient appears in no apparent distress at this time. Patient and/or vg1 family updated on plan of care and expected duration. Pain level reassessed. Patient is alert, oriented x 3, equal unlabored respirations, skin warm/dry/pink. Respiratory stated pt has taken the bipap off twice since placing mask on; patient education to keep bipap in place for Oxygen therapy; provider notified. 12:48 Reassessment: Patient appears in no apparent distress at this time. Patient and/or vg1 family updated on plan of care and expected duration. Pain level reassessed. Patient is alert, oriented x 3, equal unlabored respirations, skin warm/dry/pink. Patient states feeling better. 14:39 Reassessment: Bipap has been removed from pt and placed on NC at 2L per provider order. vg1 Vital Signs: 09:56 BP 158 / 86; Pulse 115; Resp 18; Temp 99.0(O); Pulse Ox 98% on 3 lpm NC; Weight 65.32 mb7 kg (R); Height 5 ft. 1 in. (154.94 cm) (R); 10:32 BP 140 / 68; Pulse 109; Pulse Ox 100% on Nebulizer Mask; ap3 11:34 BP 139 / 74; Pulse 106; Resp 22; Temp 98.7; Pulse Ox 97% on BiPAP; vg1 12:48 BP 124 / 79; Pulse 103; Resp 22; Pulse Ox 97% on BiPAP; vg1 14:40 BP 149 / 84; Pulse 102; Resp 21; Pulse Ox 96% on 2 lpm NC; vg1 09:56 Body Mass Index 27.21 (65.32 kg, 154.94 cm) mb7 ED Course: 09:56 Patient arrived in ED. mb7 09:56 Patient has correct armband on for positive identification. Bed in low position. Call mb7 light in reach. Side rails up X 1. Door closed. Noise minimized. Warm blanket given. 09:58 Matt Kurtz MD is Attending Physician. ma2 10:00 Triage completed. vg1 10:04 Beverley Day, CARLOS is Primary Nurse. ap3 10:04 Inserted saline lock: 20 gauge in right forearm, using aseptic technique. Blood ap3 collected. 10:05 Arm band placed on. vg1 10:23 SARS-COV-2 RT PCR (Document "Date of Onset" if Symptomatic) Sent. mb7 10:23 BMP Sent. mb7 10:23 CBC with Diff Sent. mb7 10:23 CPK Sent. mb7 10:23 Ckmb Sent. mb7 10:23 D-Dimer Sent. mb7 10:23 Hepatic Function Sent. mb7 10:23 Ptt, Activated Sent. mb7 10:23 Lipase Sent. mb7 10:23 Magnesium Sent. mb7 10:23 NT PRO-BNP Sent. mb7 10:24 PT-INR Sent. mb7 10:33 EKG done, by ED staff, reviewed by Matt Kurtz MD. mb7 11:19 Chest Single View XRAY In Process Unspecified. EDMS 14:48 No provider procedures requiring assistance completed. ss 16:11 IV discontinued, intact, bleeding controlled, No redness/swelling at site. Pressure vg1 dressing applied. Administered Medications: 10:24 Drug: AtroVENT (ipratropium) Aerosol 0.5 mg Route: Inhalation; ap3 10:24 Drug: SOLU-Medrol (methylPrednisoLONE) 125 mg Route: IVP; Site: right forearm; ap3 12:56 Follow up: Response: No adverse reaction ap3 10:24 Drug: Xopenex (levalbuterol) 1.25 mg Route: Inhalation; ap3 11:25 Drug: Ativan (LORazepam) 0.5 mg Route: IVP; Site: right wrist; vg1 12:55 Follow up: Response: No adverse reaction ap3 Outcome: 14:06 Discharge ordered by . ma2 14:48 Discharge instructions given to patient, Instructed on discharge instructions, follow ss up and referral plans. medication usage, Demonstrated understanding of instructions, follow-up care, medications, Prescriptions given X 2. 16:11 Discharged to home via wheelchair, with family. vg1 16:11 Condition: improved 16:11 Patient left the ED. vg1 Signatures: Dispatcher [employer] EDMS Lary Horne RN RN ss Alzahri, Mohammad, MD MD ma2 Beverley Day RN RN ap3 Garcia, Victoria, RN RN vg1 Maria A Nielsen 7
--- NOTE | 2021-12-22 14:06 | EDPHYS ---
Physician Documentation [facility] Name: Mila Whiting Age: 66 yrs Sex: Female : 1955 Arrival Date: 12/22/2021 Time: 09:56 Bed 8 Private MD: ED Physician Matt Kurtz HPI: 12/22 10:23 This 66 yrs old Black Female presents to ER via EMS with complaints of Shortness of ma2 breath. 10:23 66-year-old female history of COPD on home oxygen 4 L daily via nasal cannula, patient gale also uses CPAP at home she states that she has not been using her CPAP last night and so she came here because she had worsening shortness of breath, patient said that her symptom has improved at this time, denies cough fever or chest pain. Denies lower extremity edema. Historical: - Allergies: 10:00 liquid magnesium; vg1 10:00 Stadol; vg1 - PMHx: 10:00 acid reflux; Anxiety; COPD; Home O2 4 Lpm; Hypertension; spinal stenosis; vg1 - PSHx: 10:00 Cholecystectomy; hernia repair; right ankle sx; vg1 - Immunization history:: Client reports receiving the 2nd dose of the Covid vaccine. - Social history:: Smoking status: Patient denies any tobacco usage or history of. - Family history:: not pertinent. ROS: 10:24 Constitutional: Negative for fever, chills, and weight loss. ma2 10:24 All other systems are negative. Exam: 10:24 Constitutional: This is a well developed, well nourished patient who is awake, alert, ma2 and in no acute distress. Head/Face: Normocephalic, atraumatic. Eyes: Pupils equal round and reactive to light, extra-ocular motions intact. Lids and lashes normal. Conjunctiva and sclera are non-icteric and not injected. Cornea within normal limits. Periorbital areas with no swelling, redness, or edema. ENT: Nares patent. No nasal discharge, no septal abnormalities noted. Tympanic membranes are normal and external auditory canals are clear. Oropharynx with no redness, swelling, or masses, exudates, or evidence of obstruction, uvula midline. Mucous membranes moist. Neck: Trachea midline, no thyromegaly or masses palpated, and no cervical lymphadenopathy. Supple, full range of motion without nuchal rigidity, or vertebral point tenderness. No Meningismus. Chest/axilla: Normal chest wall appearance and motion. Nontender with no deformity. No lesions are appreciated. Cardiovascular: Regular rate and rhythm with a normal S1 and S2. No gallops, murmurs, or rubs. Normal PMI, no JVD. No pulse deficits. Respiratory: Saturation is 99 on 3 L oxygen via nasal cannula, lungs have equal breath sounds bilaterally, clear to auscultation and percussion. No rales, rhonchi or wheezes noted. No increased work of breathing, no retractions or nasal flaring. Abdomen/GI: Soft, non-tender, with normal bowel sounds. No distension or tympany. No guarding or rebound. No evidence of tenderness throughout. Back: No spinal tenderness. No costovertebral tenderness. Full range of motion. Skin: Warm, dry with normal turgor. Normal color with no rashes, no lesions, and no evidence of cellulitis. MS/ Extremity: Pulses equal, no cyanosis. Neurovascular intact. Full, normal range of motion. Neuro: Awake and alert, GCS 15, oriented to person, place, time, and situation. Cranial nerves II-XII grossly intact. Motor strength 5/5 in all extremities. Sensory grossly intact. Cerebellar exam normal. Normal gait. Vital Signs: 09:56 BP 158 / 86; Pulse 115; Resp 18; Temp 99.0(O); Pulse Ox 98% on 3 lpm NC; Weight 65.32 mb7 kg (R); Height 5 ft. 1 in. (154.94 cm) (R); 10:32 BP 140 / 68; Pulse 109; Pulse Ox 100% on Nebulizer Mask; ap3 11:34 BP 139 / 74; Pulse 106; Resp 22; Temp 98.7; Pulse Ox 97% on BiPAP; vg1 12:48 BP 124 / 79; Pulse 103; Resp 22; Pulse Ox 97% on BiPAP; vg1 14:40 BP 149 / 84; Pulse 102; Resp 21; Pulse Ox 96% on 2 lpm NC; vg1 09:56 Body Mass Index 27.21 (65.32 kg, 154.94 cm) mb7 MDM: 10:24 Differential diagnosis: asthma, Bronchitis Chronic Obstructive Pulmonary Disease ma2 reactive airway disease. Data reviewed: vital signs, nurses notes, EMS record. Counseling: I had a detailed discussion with the patient and/or guardian regarding: the historical points, exam findings, and any diagnostic results supporting the discharge/admit diagnosis, the presence of at least one elevated blood pressure reading (>120/80) during this emergency department visit, the need for outpatient follow up. 11:34 ED course: VBG shows increased CO2, however patient is awake alert, noted pH within ma2 normal limits, this is likely chronic CO2 retention, I reviewed prior result upon discharge, current CO2 is consistent with her discharge levels as well. Of note patient uses BiPAP at home and she has a BiPAP at home at this time. Her daughter came to the ER had lengthy discussion with the family and they said that they will go back home and use BiPAP as prescribed. Of note patient did not use BiPAP over the last 24 hours. Daughter at bedside will take the patient home and make sure she uses BiPAP. Patient agrees to use BiPAP in ER at this time if we give her Xanax.. 14:05 ED course: ABG has improved after BiPAP, at this time both CO2 are trending down and O2 ma2 blended up after patient was started on BiPAP chest x-ray and blood work are noncritical, vital signs are all improved, patient has BiPAP at home no indication for admission at this time. Patient wants to go home and use her BiPAP there. Daughter at bedside with the patient. 14:06 Patient medically screened. 12/22 10:00 Order name: BMP; Complete Time: 12/22 10:00 Order name: Blood Culture Adult (2) 12/22 10:00 Order name: CBC with Diff; Complete Time: 12:37 12/22 10:00 Order name: CPK; Complete Time: 12/22 10:00 Order name: Ckmb; Complete Time: 12/22 10:00 Order name: D-Dimer; Complete Time: 12/22 10:00 Order name: Hepatic Function; Complete Time: wv12/22 10:00 Order name: Lipase; Complete Time: wv12/22 10:00 Order name: Magnesium; Complete Time: 12/22 10:00 Order name: NT PRO-BNP; Complete Time: 12/22 10:00 Order name: PT-INR; Complete Time: 12/22 10:00 Order name: Ptt, Activated; Complete Time: 12/22 10:00 Order name: SARS-COV-2 RT PCR (Document "Date of Onset" if Symptomatic); Complete Time: 12/22 10:58 Order name: ABG; Complete Time: 12/22 10:00 Order name: EKG; Complete Time: 10:12/22 10:00 Order name: Cardiac monitoring; Complete Time: :12/22 10:00 Order name: EKG - Nurse/Tech; Complete Time: 12/22 10:00 Order name: IV Saline Lock; Complete Time: :12/22 10:00 Order name: Labs collected and sent; Complete Time: 12/22 10:00 Order name: O2 Per Protocol; Complete Time: :12/22 10:00 Order name: O2 Sat Monitoring; Complete Time: :12/22 10:50 Order name: Chest Single View XRAY; Complete Time: 12:37 vg1 12/22 10:58 Order name: BIPAP 12/22 12:35 Order name: CBC Smear Scan; Complete Time: 12:37 EDMS 12/22 12:37 Order name: ABG wv2 Administered Medications: 10:24 Drug: AtroVENT (ipratropium) Aerosol 0.5 mg Route: Inhalation; ap3 10:24 Drug: SOLU-Medrol (methylPrednisoLONE) 125 mg Route: IVP; Site: right forearm; ap3 12:56 Follow up: Response: No adverse reaction ap3 10:24 Drug: Xopenex (levalbuterol) 1.25 mg Route: Inhalation; ap3 11:25 Drug: Ativan (LORazepam) 0.5 mg Route: IVP; Site: right wrist; vg1 12:55 Follow up: Response: No adverse reaction ap3 Disposition Summary: 12/22/21 14:06 Discharge Ordered Location: Home wv2 Condition: Stable ma2 Diagnosis - COPD/ Chronic obstructive pulmonary disease, unspecified ma2 Followup: ma2 - With: Private Physician - When: 24 Hours - Reason: Continuance of care Discharge Instructions: - Discharge Summary Sheet ma2 - Chronic Obstructive Pulmonary Disease Exacerbation ma2 Forms: - Medication Reconciliation Form ma2 - Thank You Letter ma2 - Antibiotic Education ma2 - Prescription Opioid Use ma2 Prescriptions: - Zithromax Z-Lucio 250 mg Oral Tablet - take 1 tablet by ORAL route as directed for 5 days Day 1 - take two (2) tablets ma2 one time. Day 2, 3, 4 , 5 take one (1) tablet once daily.; 6 tablet; Refills: 0, Product Selection Permitted - Medrol (Lucio) 4 mg Oral Tablets, Dose Pack - take 1 tablet by ORAL route as directed - follow package instructions; 1 ma2 packet; Refills: 0, Product Selection Permitted Signatures: Dispatcher [employer] EDMatt Gomez MD MD ma2 Beverley Day RN RN ap3 Adrianne Arriola RN RN vg1
[2021-12-22 16:17] VITALS: TEMP 98.7
[2021-12-22 16:20] VITALS: BP 149/84; O2SAT 96
== END 2021-12-22 16:11 | disposition home or self-care (01) ==
LOC: ER 09:52
DX: J44.9 Chronic obstructive pulmonary disease, unspecified (principal); I10 Essential (primary) hypertension; F41.9 Anxiety disorder, unspecified; Z99.81 Dependence on supplemental oxygen; Z20.822 Contact with and (suspected) exposure to COVID-19; Z88.5 Allergy status to narcotic agent; Z91.048 Other nonmedicinal substance allergy status
CPT/HCPCS: 93005; 87040 ×2; 85025; 80048; 36415; 83735; 82550; 85610; 85379; 80076; 85730; 82553; 83690; 83880; 71045; 82805 ×2; 94660; 99285; U0003; J2930

== ENCOUNTER 2022-04-10 17:57 | Emergency (ER) | payer OTHER ==
--- OUTSIDE RECORDS SUMMARY | 2022-04-10 18:02 | XMS REPORT | Continuity of Care Document ---
:1955 Author Organization [facility] t Address [address] [place] [address] Care Team Providers Name Role Phone Guille Justice MD Primary Care Physician Chantel Guido Attending Clinician Unavailable Doctor Unassigned, [place] Attending Clinician Unavailable DAMIAN BILLY Attending Clinician Unavailable Damian Billy MD Attending Clinician Ibrahima Sommer MD Attending Clinician HOLLY MCKEON Attending Clinician Unavailable HOLLY MCKEON Admitting Clinician Unavailable Payers Payer Name Policy Type Policy Number Effective Date Expiration Date S ource Problems Condition Condition Condition Status Onset Resolution [...] St m ty to 4-29 [facility] adverse 00:00: Medical reaction 00 [place] Butorpha Propensi Active Anaphylaxis C HI St nol ty to 4-29 [facility] Tartrate adverse 00:00: Medical reaction 00 [place] Magnesiu Propensi Active Anaphylaxis Liquid U nivers m ty to 3-05 form ity of adverse 00:00: [place] reaction 00 Medical s Branch MAGNESIU DRUG Active High N/V Univers M INGREDI 3-05 ity of 00:00: [place] 00 Medical Branch BUTORPHA DRUG Active High Unknown-Cmnt Un nathen NOL INGREDI 6-05 ity of TARTRATE 00:00: [place] 00 Medical Branch Butorpha Propensi Active Anaphylaxis Seizures Univers nol ty to 6-05 per pt ity of Tartrate adverse 00:00: [place] reaction 00 Medical s Branch Stadol Adverse Active Info Not Common Reaction Available [facility] Magnesiu Adverse Active Info Not Commo n m Reaction Available [facility] Social History Social Habit Start Date Stop Date Quantity Comments Source History of tobacco Cigarette Smoker [facility] History [facility] o f Alcohol Frequency [facility] edical Branch History [facility] o f Alcohol Std Drinks [facility] History [facility] o f Alcohol Binge [place] [facility] Sex Assigned At JESSICA Cifuentes [facility] Exposure to 2021-12-31 2022-01-10 Not sure University SARS-CoV-2 (event) 00:00:00 13:27:00 [facility] Tobacco use and 2018-12-28 2018-12-28 Never used JESSICA Cifuentes exposure 00:00:00 00:00:00 [facility] Alcohol intake 2018-12-28 2018-12-[address] [facility] 00:00:00 00:00:00 non-drinker of Medical nter alcohol (finding) Tobacco Comment 2018-12-27 2018-12-27 quit 2 yrs ago JESSICA crawford Luprem 00:00:00 00:00:00 [facility] Cigarettes smoked 2015-12-30 2015-12-30 Univers ity of current (pack per 00:00:00 00:00:00 [facility] ) - Reported Branch Cigarette 2015-12-30 2015-12-30 University of pack-years 00:00:00 00:00:00 [facility] Alcohol Comment 2007-02-02 2007-02-02 social drinker Unive rsity of 00:00:00 00:00:00 [facility] Smoking Status Start Date Stop Date Source Former smoker 2018-12-28 00:00:00 2018-12-28 00:00:00 [facility] Medications Ordered Filled Start Stop Current Ordering Indication Dosage Frequency Signature Comments Components Source Medication Medication Date Date Medication? Clinician (SIG) Name Name diazePAM Yes [id number] 5mg Take 1 Uni vers (VALIUM) 5 5-13 tablet by ity of mg tablet 00:00: mouth 3 (three) Medical times Branch daily as needed for Anxiety. diazePAM Yes [id number] 5mg Take 1 Uni vers (VALIUM) 5 5-13 tablet by ity of mg tablet 00:00: mouth 3 (three) Medical times Branch daily as needed for Anxiety. diazePAM Yes [id number] 5mg Take 1 Uni vers (VALIUM) 5 5-13 tablet by ity of mg tablet 00:00: mouth 3 [place] 00 (three) Medical times Branch daily as needed for Anxiety. diazePAM 2021-0 Yes [id number] 5mg Take 1 Uni vers (VALIUM) 5 5-13 tablet by ity of mg tablet 00:00: mouth 3 (three) Medical times Branch daily as needed for Anxiety. diazePAM 2021-0 Yes [id number] 5mg Take 1 Uni vers (VALIUM) 5 5-13 tablet by ity of mg tablet 00:00: mouth 3 (three) Medical times Branch daily as needed for Anxiety. acetaZOLAMI 2021-0 Yes TAKE 1/2 Un nathen DE 250 mg 3-02 TABLE BY ity of tablet 00:00: MOUTH 2 TIMES A Medical DAY Branch acetaZOLAMI 2021-0 Yes TAKE 1/2 Un nathen DE 250 mg 3-02 TABLE BY ity of tablet 00:00: MOUTH 2 TIMES A Medical DAY Branch acetaZOLAMI 2021-0 Yes TAKE 1/2 Un nathen DE 250 mg 3-02 TABLE BY ity of tablet 00:00: MOUTH 2 TIMES A Medical DAY Branch acetaZOLAMI 2021-0 Yes TAKE 1/2 Un nathen DE 250 mg 3-02 TABLE BY ity of tablet 00:00: MOUTH 2 TIMES A Medical DAY Branch acetaZOLAMI 2021-0 Yes TAKE 1/2 Un nathen DE 250 mg 3-02 TABLE BY ity of tablet 00:00: MOUTH 2 TIMES A Medical DAY Branch acetaZOLAMI 2021-0 Yes TAKE 1/2 Un nathen DE 250 mg 3-02 TABLE BY ity of tablet 00:00: MOUTH 2 TIMES A Medical DAY Branch acetaZOLAMI 2021-0 Yes TAKE 1/2 Un nathen DE 250 mg 3-02 TABLE BY ity of tablet 00:00: MOUTH 2 TIMES A Medical DAY Branch AMLODIPINE 2021-0 Yes [id number] TAKE 1 Un nathen 5 mg tablet 2-14 TABLET BY ity of 00:00: MOUTH EVERY DAY Medical Branch AMLODIPINE 2021-0 Yes [id number] TAKE 1 Un nathen 5 mg tablet 2-14 TABLET BY ity of 00:00: MOUTH [place] EVERY DAY Medical Branch AMLODIPINE 2021-0 Yes [id number] TAKE 1 Un nathen 5 mg tablet 2-14 TABLET BY ity of 00:00: MOUTH [place] EVERY DAY Medical Branch AMLODIPINE 0 Yes [id number] TAKE 1 Un nathen 5 mg tablet 2-14 TABLET BY ity of 00:00: MOUTH DAY Medical Branch AMLODIPINE 0 Yes [id number] TAKE 1 Un nathen 5 mg tablet 2-14 TABLET BY ity of 00:00: MOUTH EVERY DAY Medical Branch AMLODIPINE 0 Yes [id number] TAKE 1 Un nathen 5 mg tablet 2-14 TABLET BY ity of 00:00: MOUTH EVERY DAY Medical Branch AMLODIPINE 0 Yes [id number] TAKE 1 Un nathen 5 mg tablet 2-14 TABLET BY ity of 00:00: MOUTH EVERY DAY Medical Branch diazePAM 2020-08- No [id number] 5mg Take 1 Un nathen (VALIUM) 5 2-31 05-13 tablet by ity of mg tablet 00:00: 00:00 [place] 3 [place] :[place] (three) Medical times Branch daily as needed for Anxiety. ZENPEP 2020-08 Yes Univers 40,000-126, 2-14 ity of 000- 00:00: [place] 168,000 Medical unit CpDR Branch ZENPEP 2020-08 Yes Univers 40,000-126, 2-14 ity of 000- 00:00: [place] 168,000 Medical unit CpDR Branch ZENPEP 2020-08 Yes Univers 40,000-126, 2-14 ity of 000- 00:00: [place] 168,000 Medical unit CpDR Branch ZENPEP 2020-08 Yes Univers 40,000-126, 2-14 ity of 000- 00:00: [place] 168,000 Medical unit CpDR Branch ZENPEP 2020-08 Yes Univers 40,000-126, 2-14 ity of 000- 00:00: [place] 168,000 Medical unit CpDR Branch ZENPEP 2020-08 Yes Univers 40,000-126, 2-14 ity of 000- 00:00: [place] 168,000 Medical unit CpDR Branch ZENPEP 2020-08 Yes Univers 40,000-126, 2-14 ity of 000- 00:00: [place] 168,000 Medical unit CpDR Branch pantoprazol 2020-08 Yes [id number] 40mg Take 1 Univers e 40 mg EC 0-04 tablet by ity of tablet 00:00: mouth [place] 00 daily. Medical Branch pantoprazol 2020-08 Yes [id number] 40mg Take 1 Univers e 40 mg EC 0-04 tablet by ity of tablet 00:00: mouth [place] 00 daily. Medical Branch pantoprazol 2020-08 Yes [id number] 40mg Take 1 Univers e 40 mg EC 0-04 tablet by ity of tablet 00:00: mouth [place] 00 daily. Medical Branch pantoprazol 2020-08 Yes [id number] 40mg Take 1 Univers e 40 mg EC 0-04 tablet by ity of tablet 00:00: mouth [place] 00 daily. Medical Branch pantoprazol 2020-08 Yes [id number] 40mg Take 1 Univers e 40 mg EC 0-04 tablet by ity of tablet 00:00: mouth [place] 00 daily. Medical Branch pantoprazol 2020-08 Yes [id number] 40mg Take 1 Univers e 40 mg EC 0-04 tablet by ity of tablet 00:00: mouth [place] 00 daily. Medical Branch pantoprazol 2020-08 Yes [id number] 40mg Take 1 Univers e 40 mg EC 0-04 tablet by ity of tablet 00:00: mouth [place] 00 daily. [facility] predniSONE 0 Yes 5mg Take 5 mg Un nathen 5 mg tablet 4-13 by mouth. ity of 14:13: [address] predniSONE 2020-0 Yes 5mg Take 5 mg Un nathen 5 mg tablet 4-13 by mouth. ity of 14:13: [address] predniSONE 2020-0 Yes 5mg Take 5 mg Un nathen 5 mg tablet 4-13 by mouth. ity of 14:13: [address] predniSONE 2020-0 Yes 5mg Take 5 mg Un nathen 5 mg tablet 4-13 by mouth. ity of 14:13: [address] predniSONE 2020-0 Yes 5mg Take 5 mg Un nathen 5 mg tablet 4-13 by mouth. ity of 14:13: [address] predniSONE 2020-0 Yes 5mg Take 5 mg Un nathen 5 mg tablet 4-13 by mouth. ity of 14:13: [address] predniSONE 2020-0 Yes 5mg Take 5 mg Un nathen 5 mg tablet 4-13 by mouth. ity of 14:13: [address] HYDROcodone 2021-0 Yes 1{tbl} Take 1 Un nathen -acetaminop 3-12 tablet by ity of hen 7.5-325 14:37: mouth 3 [place] as mg per 07 (three) Medical tablet times Branch daily. OXYGEN-AIR Yes by Univers DELIVERY 3-12 Miscellane ity o f SYSTEMS 14:37: ous route. Tripp morgan [address] Branch HYDROcodone Yes 1{tbl} Take 1 Un nathen -acetaminop 3-12 tablet by ity of hen 7.5-325 14:37: mouth 3 [place] as mg per 07 (three) Medical tablet times Branch daily. OXYGEN-AIR Yes by Univers DELIVERY 3-12 Miscellane ity o f SYSTEMS 14:37: ous route. Tripp morgan [address] Branch HYDROcodone Yes 1{tbl} Take 1 Un nathen -acetaminop 3-12 tablet by ity of hen 7.5-325 14:37: mouth 3 [place] as mg per 07 (three) Medical tablet times Branch daily. OXYGEN-AIR Yes by Univers DELIVERY 3-12 Miscellane ity o f SYSTEMS 14:37: ous route. Tripp morgan [address] Branch HYDROcodone Yes 1{tbl} Take 1 Un nathen -acetaminop 3-12 tablet by ity of hen 7.5-325 14:37: mouth 3 [place] as mg per 07 (three) Medical tablet times Branch daily. OXYGEN-AIR Yes by Univers DELIVERY 3-12 Miscellane ity o f SYSTEMS 14:37: ous route. Tripp morgan [address] Branch HYDROcodone Yes 1{tbl} Take 1 Un nathen -acetaminop 3-12 tablet by ity of hen 7.5-325 14:37: mouth 3 [place] as mg per 07 (three) Medical tablet times Branch daily. OXYGEN-AIR Yes by Univers DELIVERY 3-12 Miscellane ity o f SYSTEMS 14:37: ous route. Tripp morgan [address] Branch HYDROcodone Yes 1{tbl} Take 1 Un nathen -acetaminop 3-12 tablet by ity of hen 7.5-325 14:37: mouth 3 [place] as mg per 07 (three) Medical tablet times Branch daily. OXYGEN-AIR Yes by Univers DELIVERY 3-12 Miscellane ity o f SYSTEMS 14:37: ous route. Tripp morgan [facility] [place] 07 Medical Branch HYDROcodone Yes 1{tbl} Take 1 Un nathen -acetaminop 3-12 tablet by ity of hen 7.5-325 14:37: mouth 3 [place] as mg per 07 (three) Medical tablet times Branch daily. OXYGEN-AIR Yes by Univers DELIVERY 3-12 Miscellane ity o f SYSTEMS 14:37: ous route. Tripp morgan [facility] [place] Medical Branch SPIRIVA Yes INHALE 2 [...] e-codeine 7-17 by mouth. ity o f 14:54: [place] mg/5 mL 38 Medical syrup Branch promethazin 2019-0 Yes 5mL Take 5 mL U nivers e-codeine 7-17 by mouth. ity o f 14:54: [place] mg/5 mL 38 Medical syrup Branch promethazin 2019-0 Yes 5mL Take 5 mL U nivers e-codeine 7-17 by mouth. ity o f 14:54: [place] mg/5 mL 38 Medical syrup Branch promethazin 2019-0 Yes 5mL Take 5 mL U nivers e-codeine 7-17 by mouth. ity o f 14:54: [place] mg/5 mL 38 Medical syrup Branch promethazin 2019-0 Yes 5mL Take 5 mL U nivers e-codeine 7-17 by mouth. ity o f 14:54: [place] mg/5 mL 38 Medical syrup Branch promethazin [id number] Yes 5mL Take 5 mL U nivers e-codeine 7-17 by mouth. ity o f 14:54: [place] mg/5 mL 38 Medical syrup Branch promethazin 20190 Yes 5mL Take 5 mL U nivers e-codeine 7-17 by mouth. ity o f 14:54: [place] mg/5 mL 38 Medical syrup Branch TIOTROPIUM 20190 Yes Inhale. Univ ers BROMIDE 7-17 ity of (SPIRIVA 14:52: [place] RESPIMAT 14 Medical INHALE) Branch MOMETASONE 0 Yes Use in Unive rs FUROATE 7-17 each ity of (NASONEX 14:52: nostril. [place] NASAL) 14 Medical Branch TIOTROPIUM 2019-0 Yes Inhale. Univ ers BROMIDE 7-17 ity of (SPIRIVA 14:52: [place] RESPIMAT 14 Medical INHALE) Branch MOMETASONE 20190 Yes Use in Unive rs FUROATE 7-17 each ity of (NASONEX 14:52: nostril. [place] NASAL) 14 Medical Branch TIOTROPIUM 2019-0 Yes Inhale. Univ ers BROMIDE 7-17 ity of (SPIRIVA 14:52: [place] RESPIMAT 14 Medical INHALE) Branch MOMETASONE 2018 Yes Use in Unive rs FUROATE 7-17 each ity of (NASONEX 14:52: nostril. [place] NASAL) 14 Medical Branch TIOTROPIUM 20190 Yes Inhale. Univ ers BROMIDE 7-17 ity of (SPIRIVA 14:52: [place] RESPIMAT 14 Medical INHALE) Branch MOMETASONE Yes Use in Unive rs FUROATE 7-17 each ity of (NASONEX 14:52: nostril. [place] NASAL) 14 Medical Branch TIOTROPIUM 20190 Yes Inhale. Univ ers BROMIDE 7-17 ity of (SPIRIVA 14:52: [place] RESPIMAT 14 Medical INHALE) Branch MOMETASONE Yes Use in Unive rs FUROATE 7-17 each ity of (NASONEX 14:52: nostril. [place] NASAL) 14 Medical Branch TIOTROPIUM Yes Inhale. Univ ers BROMIDE 7-17 ity of (SPIRIVA 14:52: [place] RESPIMAT 14 Medical INHALE) Branch MOMETASONE Yes Use in Unive rs FUROATE 7-17 each ity of (NASONEX 14:52: nostril. [place] NASAL) 14 Medical Branch TIOTROPIUM 2019 Yes Inhale. Univ ers BROMIDE 7-17 ity of (SPIRIVA 14:52: [place] RESPIMAT 14 Medical INHALE) Branch MOMETASONE Yes Use in Unive rs FUROATE 7-17 each ity of (NASONEX 14:52: [...] St MG EC 4-30 by mouth [facility] tablet 10:34: daily. Medical 04 [place] ALPRAZolam Yes .5mg Take 0.[address] (XANAX) 0.5 4-30 mg by [facility]ukes MG tablet 10:34: mouth 3 Medic al 04 (three) Center times daily as needed for Anxiety. albuterol Yes 2.5mg Take 2.[address] (PROVENTIL) 4-30 mg by [facility]ukes 2.5 mg/0.5 10:34: nebulizati M edical mL Nebu 04 on every 6 Center nebulizer (six) solution hours as needed. predniSONE Yes 5mg QD Take [address] (DELTASONE) 4-30 by mouth Luke s 5 MG tablet 10:34: daily. [facility] josé miguel 04 Center budesonide- Yes 2{puff} Q.5D Inhale [address] formoterol 4-30 puffs by Lukes (SYMBICORT) 10:34: mouth via M edical 160-4.5 04 inhaler 2 Center mcg/actuati (two) on inhaler times daily. amLODIPine Yes 5mg QD Take [address] (NORVASC) 5 4-30 by mouth Luke s MG tablet 10:34: daily. Medica l 04 Center tiotropium Yes 18ug Q.5D Inhale [address] (SPIRIVA) 4-30 mcg by [facility]ukes 18 mcg 10:34: mouth via Medica l inhalation 04 inhaler 2 Cent er capsule (two) times daily. HYDROcodone 2019-0 Yes 1{tbl} Take [address] -acetaminop 4-30 tablet by Cat nnamdi valladares (NORCO 10:34: mouth Medica l 7.5-325) 04 every 8 Center 7.5-325 mg (eight) per tablet hours as needed for Pain. buprenorphi 2019-0 Yes 1{patch Place [address] ne 4-30 } patch onto Lukes (BUTRANS) 10:34: the skin Medi josé miguel 10 mcg/hour 04 every 7 Cente r PTWK days. lactulose 2019-0 Yes 20g Take [address] (CHRONULAC) 4-30 by mouth Luke s 10 gram/15 10:34: daily as Med ical mL (15 mL) 04 needed. Center solution docusate 2019-0 Yes 200mg Take [address] sodium 4-30 mg by Lukes (COLACE) 10:34: mouth Medical 100 MG 04 daily as Center capsule needed for Constipati on. psyllium 2019- Yes .52g Take 0.[address] 0.52 gram 4-30 g by mouth Luke s capsule 10:34: every 7 Medical 04 days. Center pantoprazol 2019-0 Yes 20mg QD Take [address] e 4-30 by mouth [facility]ukes (PROTONIX) 10:34: daily. Medic al 20 MG 04 Center tablet cetirizine 2018-0 Yes 10mg Take [address] (ZYRTEC) 10 4-30 by mouth Luke s MG tablet 10:34: daily as Medi josé miguel 04 needed for Center Allergies. promethazin 20190 Yes 5mL Take [address] e-codeine 4-30 by mouth [facility]ukes (PHENERGAN 10:34: every 4 Medi josé miguel WITH 04 (four) Center CODEINE) hours as 6.25-10 needed for mg/5 mL Cough. syrup gabapentin 2019-0 Yes 100mg QD Take [address] (NEURONTIN) 4-30 mg by [facility]ukes 100 MG 10:34: mouth Medical capsule 04 daily. Center OXYGEN-AIR 2019-[address] DELIVERY 4-30 Miscellane Lukes SYSTEMS 10:34: ous route. Medi josé miguel MISC 04 Center Butrans Butrans Yes Na Guido 1 patch to Common skin [facility] Lactulose Lactulose Yes Na Guido 15 ml C ommon [facility] Lopressor Lopressor Yes Na Guido 1 tablet Common with food [facility] Spiriva Spiriva Yes Na Guido 2 puffs Com mon Respimat Respimat [facility] Aspirin 81 Aspirin 81 Yes Na Guido 1 tablet Common [facility] Zyrtec Zyrtec Yes Na Guido 1 tablet Comm on Allergy Allergy [facility] [place] Yes Na Guido 1 tablet Common as needed [facility] Albuterol-I Albuterol-I Yes Na Guido not Common pratropium pratropium [facility] Alprazolam Alprazolam Yes Na Guido 1 tablet [facility] Symbicort Symbicort Yes Na Guido 2 puffs Common [facility] Norvasc Norvasc Yes Na Guido 1 tablet Co mmon [facility] Protonix Protonix Yes Na Guido 1/2 tablet [facility] PredniSONE PredniSONE Yes Na Guido 1 tablet [facility] Combivent Combivent Yes Na Guiod not Co mmon defined [facility] Immunizations Ordered Filled Immunization Date Status Comments Sour e Immunization Name Name SARS-COV-2 COVID-19 2021-08-30 Completed Unive rsity of MODERNA 0.25ML 00:00:00 [facility] BOOSTER VACCINE Branch SARS-COV-2 COVID-19 2021-08-30 Completed Unive rsity of MODERNA 0.25ML 00:00:00 [facility] josé miguel BOOSTER VACCINE Branch SARS-COV-2 COVID-19 2021-08-30 Completed Unive rsity of MODERNA 0.25ML 00:00:00 [facility] BOOSTER VACCINE Branch SARS-COV-2 COVID-19 2021-08-30 Completed Unive rsity of MODERNA 0.25ML 00:00:00 [facility] BOOSTER VACCINE Branch SARS-COV-2 COVID-19 2021-08-30 Completed Unive rsity of MODERNA 0.25ML 00:00:00 [place] Medi josé miguel BOOSTER VACCINE Branch SARS-COV-2 COVID-19 2021-08-30 Completed Unive rsity of MODERNA 0.25ML 00:00:00 [facility] josé miguel BOOSTER VACCINE Branch SARS-COV-2 COVID-19 2021-08-30 Completed Unive rsity of MODERNA 0.25ML 00:00:00 [facility] BOOSTER VACCINE Branch Vital Signs Vital Name Observation Time Observation Value Comments Source Systolic blood 2022-01-10 18:39:00 164 mm[Hg] Univer sity of pressure [facility] Diastolic blood 2022-01-10 18:39:00 82 mm[Hg] Unive rsity of pressure [facility] Heart rate 2022-01-10 18:38:00 108 /min [facility] Body temperature 2022-01-10 18:38:00 37.33 [facility] height 2022-01-10 18:38:00 154.9 cm [facility] Body weight 2022-01-10 18:38:00 65.318 kg [facility] BMI 2022-01-10 18:38:00 27.21 kg/m2 [facility] Oxygen saturation in 2022-01-10 18:38:00 95 /min [facility] Arterial blood by [facility] Pulse oximetry Branch Procedures Procedure Date / Time Performed Performing Clinician [facility] e HOME HEALTH - OTHER 2022-02-11 05:01:00 Doctor Unassigned, No Un iversity of [facility] Medical [place] HOME HEALTH - OTHER 2022-02-07 05:01:00 Doctor Unassigned, No Un iversity of [facility] Medical Branch HOME HEALTH - OTHER 2022-02-03 05:01:00 Doctor Unassigned, No Un iversity of [facility] Medical Branch HOME HEALTH - OTHER 2022-01-17 05:01:00 Doctor Unassigned, No Un iversity of [facility] Medical Branch HOME HEALTH - OTHER 2021-12-29 05:01:00 Doctor Unassigned, No Un iversity of [facility] Medical Branch HOME HEALTH - OTHER 2021-12-20 05:01:00 Doctor Unassigned, No Un iversity of [facility] Medical [place] Plan of Care Planned Activity Planned Date Details Comments Source Future Scheduled 2020-05-[address] [facility] Test 00:00:00 (#1) [code = [facility] INFLUENZA VACCINE (#1)] Future Scheduled [address] [facility] Test 00:00:00 (procedure) [code = [facility] 60975862] Future Scheduled [address] [facility] Test 00:00:00 malignant neoplasm Medical C enter of cervix (procedure) [code = 726684732] Future Scheduled [address] Test 00:00:00 malignant neoplasm Medical C enter of breast (procedure) [code = 377365837] Future Scheduled [address] [facility] Test 00:00:00 malignant neoplasm Medical C enter of colon (procedure) [code = 970828085] Encounters Start End Encounter Admission Attending Care Care Encounter Source Date/Time Date/Time Type Type Clinicians Facility Department ID 2021-09-25 [facility] [id number] 2 Common 11:46:50 [id number] [facility] 2021-09-25 [facility] [id number] 2 Common 11:44:44 [id number] [facility] 2022-02-11 2022-02-11 Orders Doctor DONNA [id number] Univers 00:00:00 00:00:00 Only Unassigned, JONATHAN [id number] ity of [place] [facility] [id number] Shawn as [phone] [facility] 009 Branch 2022-02-07 2022-02-07 Orders Doctor DONNA [id number] Univers 00:00:00 00:00:00 Only Unassigned, JONATHAN [id number] ity of [place] [facility] [id number] Shawn as [phone] [facility] 009 Branch 2022-02-03 2022-02-03 Orders Doctor DONNA [id number] Univers 00:00:00 00:00:00 Only Unassigned, JONATHAN [id number] ity of [place] [facility] [id number] Shawn as [phone] [address] 2022-01-17 2022-01-17 Orders Doctor DONNA [id number] Univers 00:00:00 00:00:00 Only Unassigned, JONATHAN [id number] ity of [place] [facility] [id number] Shawn as [phone] [address] 2022-01-10 2022-01-10 Outpatient R [facility] [id number] Univers 13:00:00 13:55:59 DAMIAN ity of [facility] 2022-01-10 2022-01-10 [facility] [id number] Univers 13:00:00 13:15:00 Visit [facility] [id number] it y of Victor Hugo SEMMES [id number] Shawn as RIZWANA?BLEA [phone] [address] MEDICAL OFFICE BUILDING 2021-12-29 2021-12-29 Orders Doctor THOMPSON [id number] Univers 00:00:00 00:00:00 Only Unassigned, JONATHAN [id number] ity of [place] [facility] [id number] Shawn as [phone] [address] 2021-12-20 2021-12-20 Orders Doctor THOMPSON [id number] Univers 00:00:00 00:00:00 Only Unassigned, JONATHAN [id number] ity of [place] [facility] [id number] Shawn as [phone] [address] 2021-03-22 2021-03-22 [facility] [id number] 00:00:00 00:00:00 [facility] [id number] [place] [id number] Professio [phone] [place] [address] [address] 2021-03-21 2021-03-21 [facility] [id number] 00:00:00 00:00:00 [facility] [id number] [place] [id number] Professio [phone] nal 044 [address] 2021-02-26 2021-02-26 Office Ros [facility] [id number] 14:45:21 15:57:07 Visit Ibrahima [place] [id number] [place] [id number] Professio [phone] nal 092 [facility] 2020-05-21 2020-05-21 Outpatient STLMLC STLMLC [id number] Common 00:00:00 00:00:00 [facility] 2020-05-21 2020-05-21 Outpatient STLMLC STLMLC [id number] Common 00:00:00 00:00:00 [facility] 2018-11-08 2018-11-08 [id number] Common 11:45:00 11:45:00 [facility] Physicians [facility] Results Test Description Test Time Test Results Result Source Comments Comments FINE NEEDLE 2018-12-0 Medical Cytology Report Case: ASPIRATION BY 1 [id number] Authorizing CLINICIAN 16:25:00 Provider: Holly Mckeon Collected: 12/28/2018 0903 MD Delores Ordering Location: [facility] Endoscopy Received: 12/28/2018 1103 Services Pathologist: Salvador Begum MD Specimen: Pancreas PANCREAS CYST FNA BY CLINICIAN (CYTOSPINS AND CELL BLOCK OF ASPIRATE): - NEGATIVE FOR MALIGNANCY - The mucin stain is negative Signing Pathologist Direct Phone Line: [phone] signed by Salvador Begum MD on 12/29/2018 at 4:25 PMThe mucin stain is negative and the control slide shows positive staining as expected.[id number], [id number], [id number] cysts in the pancreas, largest measuring 2.0 cmPANCREAS CYST FNA27 mls in cytorich red; 4 cytospins, 1 mucin stain, cell blockCollected: [id number]: [id number] interpretation of this case included the use of immunohistochemistry or special stains. MUCINImmunohistochemistry technical testing was performed at [facility], Pathology Laboratory where it was developed [...] qualified to perform high complexity clinical laboratory testing.[facility], Department of Pathology, [address] [place] [address], [facility], [address] [place] [address], [facility], [facility] of [facility], [address] [place] [id number], TISSUE EXAM Surgical Pathology Report 1 Case: [id number] Authorizing 10:28:00 Provider: Holly Mckeon Collected: 12/28/2018 0924 MD Delores Ordering Location: [facility] Endoscopy Received: 12/28/2018 1253 Services Pathologist: Kurtis Luna MD Specimen: Ampulla PART A AMPULLARY BIOPSY:PARTIALLY DENUDED NON-NEOPLASTIC SMALL INTESTINAL MUCOSA WITHOUT SIGNIFICANT HISTOPATHOLOGIC ALTERATION.NEGATIVE FOR DYSPLASIA OR INVASIVE CARCINOMA. Signing Pathologist Direct Phone Line: [phone] signed by Kurtis Luna MD on 12/29/2018 at 10:28 [id number] pancreatic lesionampullaThe container is labeled "ampulla" and [...] this type of specimen.FINE NEEDLE ASPIRATE (FNA) [id number] 13:00:00 Test Item Value Reference Range Interpretation Comments CYTOLOGY RESULT POINTER See Separate Report (RAMEZ) (test code = 2629)
[2022-04-10 19:00] LABS: Albumin 2.9 g/dL (3.4-5.0); Bilirubin Total 0.2 mg/dL (0.2-1.0); Potassium 4.3 mmol/L (3.5-5.1)
[2022-04-10 19:11] LABS: Absolute Lymphocytes (CBC) 0.7 K/uL (0.7-4.9); Hematocrit 32.3 % (36.0-45.0); Lymphocytes % 5.6 % (15.3-44.8); MCV 84.8 fL (80-100); MPV 8.3 fL (7.6-11.3)
[2022-04-10 19:15] LABS: Urine Blood Trace-intact (Negative); Urine Glucose Negative (Negative); Urine Protein Negative (Negative)
--- NOTE | 2022-04-10 20:06 | RAD REPORT ---
EXAM DESCRIPTION: CTAbdomen Pelvis W Contrast - 04/10/2022 7:48 pm CLINICAL HISTORY: Abdominal pain. abominal pain with constipation COMPARISON: Abdomen Pelvis W Contrast dated 10/28/2021; Abdomen Pelvis W Contrast dated 0; Abdomen Pelvis W Contrast dated 12/27/2017; CT ABD PELVIS W CONTRAST dated 09/14/2014 TECHNIQUE: Biphasic CT imaging of the abdomen and pelvis was performed with 100 ml non-ionic IV cont rast. All CT scans are performed using dose optimization technique as appropriate and may include automated exposure control or mA/KV adjustment according to patient size. FINDINGS: Mild linear atelectasis is present the left base. Mild nodular contour seen involving the liver. This likely represents mild cirrhosis cholecystectomy clips are present. Common bile duct is prominent size throughout. Multiple cystic lesions are present involving the panc reas, with mild dilatation of the pancreatic duct. This appears unchanged since prior study. IPMNs re le favored diagnosis. The spleen, adrenal glands and kidneys within normal limits. No bowel obstruction, free air, free fluid or abscess. Moderate fat containing ventral hernia superio r to the umbilical region. Small fat containing umbilical hernia. The appendix is normal. Aortic and iliac atherosclerosis is present. No evidence of significant lymphadenopathy. Calcified uterine fibro ids. No suspicious bony findings. IMPRESSION: No acute intra-abdominal or pelvic finding. Multiple cystic lesions involving the pancreas again seen, appearing essentially stable since the chava or study.
[2022-04-10] MEDS ORDERED: NA CHLORIDE 0.9% 1,000 ML ONE (20:12)
--- NOTE | 2022-04-10 20:45 | EDPHYS ---
Physician Documentation [facility] Name: Mila Whiting Age: 66 yrs Sex: Female : 1955 Arrival Date: 04/10/2022 Time: 18:01 Bed 18 Private MD: ED Physician Anjum Ramos HPI: 04/10 18:15 This 66 yrs old Black Female presents to ER via Wheelchair with complaints of Abdominal pm1 Pain, Constipation, Nausea. 18:15 The patient presents with abdominal pain in the left lower quadrant. Onset: The pm1 symptoms/episode began/occurred 4 day(s) ago. The symptoms do not radiate. Associated signs and symptoms: Pertinent positives: nausea, Pertinent negatives: chest pain, diarrhea, shortness of breath, vomiting. The symptoms are described as crampy. Modifying factors: The symptoms are alleviated by nothing, the symptoms are aggravated by emotional upset, Decreased p.o. intake. Grief over of her dog of 15 years. Severity of pain: in the emergency department the pain is actually worse. The patient has not experienced similar symptoms in the past. The patient has not recently seen a physician. Patient contacted Dr. Flanagan's office and ended up talking to ASSISTANT CLINICAL NURSE MANAGER who recommended patient come to the ER for evaluation and treatment of her constipation of 4 days. Historical: - Allergies: 18:12 liquid magnesium; bm7 18:12 Stadol; bm7 - PMHx: 18:12 acid reflux; Anxiety; COPD; Home O2 4 Lpm; Hypertension; spinal stenosis; bm7 - PSHx: 18:12 Cholecystectomy; hernia repair; right ankle sx; bm7 - Immunization history:: Adult Immunizations up to date, Client reports receiving the 2nd dose of the Covid vaccine, Client reports receiving the 1st dose of the Covid vaccine. - Social history:: Smoking status: Patient/guardian denies using tobacco products. ROS: 18:15 Constitutional: Negative for fever, chills, and weight loss, Cardiovascular: Negative pm1 for chest pain, palpitations, and edema, Respiratory: Negative for shortness of breath, cough, wheezing, and pleuritic chest pain. 18:15 Back: Negative for injury and pain, : Negative for injury, bleeding, discharge, and swelling, MS/Extremity: Negative for injury and deformity, Skin: Negative for injury, rash, and discoloration, Neuro: Negative for headache, weakness, numbness, tingling, and seizure. 18:15 Abdomen/GI: Positive for abdominal pain, nausea, constipation, of the left lower quadrant, Negative for vomiting, diarrhea. 18:15 All other systems are negative. Exam: 18:15 Constitutional: This is a well developed, well nourished patient who is awake, alert, pm1 and in no acute distress. Head/Face: Normocephalic, atraumatic. 18:15 Back: No spinal tenderness. No costovertebral tenderness. Full range of motion. Skin: Warm, dry with normal turgor. Normal color with no rashes, no lesions, and no evidence of cellulitis. MS/ Extremity: Pulses equal, no cyanosis. Neurovascular intact. Full, normal range of motion. 18:15 Eyes: Exam is negative for acute changes, Periorbital structures: appear normal, Pupils: no acute changes, Extraocular movements: no acute changes, Conjunctiva: no acute changes, no injection. 18:15 ENT: Exam is negative for acute changes, Mouth: Lips: normal, moist, Oral mucosa: normal, pink and intact, moist. 18:15 Cardiovascular: Exam negative for acute changes, Rate: normal, Rhythm: regular, Pulses: no pulse deficits are appreciated, Heart sounds: normal, normal S1and S2. 18:15 Respiratory: Exam negative for acute changes, respiratory distress, shortness of breath, Breath sounds: are clear throughout. 18:15 Abdomen/GI: Inspection: abdomen appears normal, Palpation: soft, in all quadrants, nontender, in all quadrants, Hernia: noted in the paraumbilical area and umbilical area, incarceration, is not appreciated, tenderness, is not appreciated. 18:15 Neuro: Exam negative for acute changes, Orientation: is normal, Mentation: is normal, Motor: is normal, moves all fours. Vital Signs: 18:10 BP 133 / 76; Pulse 90; Resp 16; Temp 97.2(TE); Pulse Ox 98% on 2.5 lpm NC; Weight 64.41 bm7 kg (R); Height 5 ft. 1 in. (154.94 cm); Pain 6/10; 20:11 BP 142 / 77; Pulse 97; Resp 17 S; Pulse Ox 99% on 3 lpm NC; lg3 21:12 BP 138 / 78; Pulse 86; Resp 17 S; Pulse Ox 99% on 3 lpm NC; lg3 18:10 Body Mass Index 26.83 (64.41 kg, 154.94 cm) bm7 MDM: 19:30 Patient medically screened. pm1 20:44 Data reviewed: vital signs. Data interpreted: Pulse oximetry: on room air is 99 %. pm1 Interpretation: normal. Counseling: I had a detailed discussion with the patient and/or guardian regarding: the historical points, exam findings, and any diagnostic results supporting the discharge/admit diagnosis, lab results, radiology results, the need for outpatient follow up, to return to the emergency department if symptoms worsen or persist or if there are any questions or concerns that arise at home. 20:45 ED course: Patient reports that she has been the breath due to of her dog of 15 pm1 years. Patient with decreased solid food intake for the past couple days. CT report without any signs of impaction or constipation. Explained to patient she really does not have food in her system to poop. Recommended patient to have liquid diet and increase p.o. intake. Also to decrease intake of caffeine. Patient reports she does have lactulose at home already but has not been taking. 04/10 18:15 Order name: CBC with Diff; Complete Time: 19:17 iw 04/10 18:15 Order name: CMP; Complete Time: 19:10 iw 04/10 18:15 Order name: Lipase; Complete Time: 19:10 iw 04/10 19:15 Order name: Urine Dipstick-Ancillary; Complete Time: 19:17 EDMS 04/10 19:18 Order name: CT Abd/Pelvis - IV Contrast Only; Complete Time: 20:08 pm1 04/10 18:15 Order name: IV Saline Lock; Complete Time: 18:28 iw 04/10 18:15 Order name: Labs collected and sent; Complete Time: 18:28 iw 04/10 18:15 Order name: Urine Dipstick-Ancillary (obtain specimen); Complete Time: 18:28 iw Administered Medications: 20:20 Drug: NS 0.9% 1000 ml Route: IV; Rate: 1000 ml; Site: left forearm; lg3 21:12 Follow up: Response: No adverse reaction; IV Status: Completed infusion; IV Intake: lg3 1000ml Disposition: 20:56 Co-signature as Attending Physician, Anjum Ramos DO I was immediately available on-site ms3 in the Emergency Department for consultation in the care of the patient. . Disposition Summary: 04/10/22 20:45 Discharge Ordered Location: Home pm1 Problem: new pm1 Symptoms: have improved pm1 Condition: Stable pm1 Diagnosis - Abdominal pain, unspecified pm1 - Constipation, unspecified pm1 Followup: pm1 - With: Emergency Department - When: As needed - Reason: Worsening of condition Followup: pm1 - With: Private Physician - When: 2 - 3 days - Reason: Recheck today's complaints, Continuance of care, Re-evaluation by your physician Discharge Instructions: - Discharge Summary Sheet pm1 - Abdominal Pain, Adult pm1 - Constipation, Adult pm1 Forms: - Medication Reconciliation Form pm1 - Thank You Letter pm1 - Antibiotic Education pm1 - Prescription Opioid Use pm1 Signatures: Dispatcher [employer] EDMS Delia Marcos RN RN iw Judson Roper NP ASSISTANT CLINICAL NURSE MANAGER pm1 Sinai Carolina RN RN lg3 Anjum Ramos DO DO ms3 Dorina De León, CARLOS RN bm7
--- NOTE | 2022-04-10 20:45 | ER ---
Nurse's Notes [facility] Name: Mila Whiting Age: 66 yrs Sex: Female : 1955 Arrival Date: 04/10/2022 Time: 18:01 Bed 18 Private MD: Diagnosis: Abdominal pain, unspecified;Constipation, unspecified Presentation: 04/10 18:10 Chief complaint: Patient states: I have had constipation for four days and Dr. Rader [facility] told me to come to the ER. Coronavirus screen: At this time, the client does not indicate any symptoms associated with coronavirus-19. Ebola Screen: No symptoms or risks identified at this time. Initial Sepsis Screen: Does the patient meet any 2 criteria? No. Patient's initial sepsis screen is negative. Does the patient have a suspected source of infection? No. Patient's initial sepsis screen is negative. Risk Assessment: Do you want to hurt yourself or someone else? Patient reports no desire to harm self or others. Onset of symptoms was April 06, 2022. Care prior to arrival: I have taken all of the over the counter medications for constipation you can think of. 18:10 Method Of Arrival: Wheelchair bm7 18:10 Acuity: CRISTY 3 bm7 Triage Assessment: 18:12 General: Appears in no apparent distress. uncomfortable, well groomed, well developed, bm7 Behavior is calm, cooperative, appropriate for age. Pain: Complains of pain in left upper quadrant Pain does not radiate. Pain currently is 7 out of 10 on a pain scale. EENT: No deficits noted. No signs and/or symptoms were reported regarding the EENT system. Neuro: No deficits noted. Cardiovascular: No deficits noted. Denies chest pain. Respiratory: No deficits noted. Reports Denies shortness of breath. GI: Abdomen is round distended, Abd is soft X 4 quads Abdomen is tender to palpation in right upper quadrant and left upper quadrant Reports constipation, hemorrhoids, nausea. : No deficits noted. No signs and/or symptoms were reported regarding the genitourinary system. Derm: No deficits noted. No signs and/or symptoms reported regarding the dermatologic system. Musculoskeletal: No deficits noted. No signs and/or symptoms reported regarding the musculoskeletal system. Historical: - Allergies: 18:12 liquid magnesium; bm7 18:12 Stadol; bm7 - PMHx: 18:12 acid reflux; Anxiety; COPD; Home O2 4 Lpm; Hypertension; spinal stenosis; bm7 - PSHx: 18:12 Cholecystectomy; hernia repair; right ankle sx; bm7 - Immunization history:: Adult Immunizations up to date, Client reports receiving the 2nd dose of the Covid vaccine, Client reports receiving the 1st dose of the Covid vaccine. - Social history:: Smoking status: Patient/guardian denies using tobacco products. Screenin:11 Abuse screen: Denies threats or abuse. Denies injuries from another. Nutritional lg3 screening: No deficits noted. Tuberculosis screening: No symptoms or risk factors identified. Fall Risk None identified. Assessment: 19:35 General: No answer from lobby. called number on file. . tw5 20:11 General: Appears in no apparent distress. uncomfortable, Behavior is calm, cooperative. lg3 Pain: Complains of pain in abdomen. Neuro: No deficits noted. Level of Consciousness is awake, alert, obeys commands, Oriented to person, place, time, situation. Cardiovascular: No deficits noted. Denies chest pain, Capillary refill < 3 seconds Clubbing of nail beds is absent JVD is absent Patient's skin is warm and dry. Respiratory: No deficits noted. Reports use of home O2 as needed for COPD Airway is patent Trachea midline Respiratory effort is even, unlabored, Respiratory pattern is regular, symmetrical. GI: Abdomen is round distended, Bowel sounds present X 4 quads. Reports upper abdominal pain, bloating, constipation, cramping, nausea. : No deficits noted. No signs and/or symptoms were reported regarding the genitourinary system. EENT: No deficits noted. No signs and/or symptoms were reported regarding the EENT system. Derm: No deficits noted. No signs and/or symptoms reported regarding the dermatologic system. Skin is intact, is healthy with good turgor, Skin is dry, Skin temperature is warm. Musculoskeletal: No deficits noted. No signs and/or symptoms reported regarding the musculoskeletal system. Circulation, motion, and sensation intact. Range of motion: intact in all extremities. 21:11 Reassessment: Patient appears in no apparent distress at this time. No changes from lg3 previously documented assessment. Patient and/or family updated on plan of care and expected duration. Pain level reassessed. Patient is alert, oriented x 3, equal unlabored respirations, skin warm/dry/pink. Vital Signs: 18:10 BP 133 / 76; Pulse 90; Resp 16; Temp 97.2(TE); Pulse Ox 98% on 2.5 lpm NC; Weight 64.41 bm7 kg (R); Height 5 ft. 1 in. (154.94 cm); Pain 6/10; 20:11 BP 142 / 77; Pulse 97; Resp 17 S; Pulse Ox 99% on 3 lpm NC; lg3 21:12 BP 138 / 78; Pulse 86; Resp 17 S; Pulse Ox 99% on 3 lpm NC; lg3 18:10 Body Mass Index 26.83 (64.41 kg, 154.94 cm) bm7 ED Course: 18:01 Patient arrived in ED. ja2 18:12 Triage completed. bm7 18:12 Arm band placed on right wrist. bm7 18:25 Initial lab(s) drawn, by me, sent to lab. Inserted saline lock: 22 gauge in right bm7 forearm, using aseptic technique. Blood collected. 18:28 CBC with Diff Sent. hb 18:28 CMP Sent. hb 18:28 Lipase Sent. hb 18:52 Judson Roper, ELPIDIO is PHCP. pm1 18:52 Anjum Ramos DO is Attending Physician. pm1 19:29 Patient's name was called from ER [place]. No response. as6 19:50 CT Abd/Pelvis - IV Contrast Only In Process Unspecified. EDMS 20:10 Sinai Carolina, RN is Primary Nurse. lg3 20:11 Patient has correct armband on for positive identification. Placed in gown. Bed in low lg3 position. Call light in reach. Side rails up X 1. Client placed on continuous cardiac and pulse oximetry monitoring. NIBP monitoring applied. Door closed. Noise minimized. Warm blanket given. 21:12 No provider procedures requiring assistance completed. IV discontinued, intact, lg3 bleeding controlled, No redness/swelling at site. Pressure dressing applied. Administered Medications: 20:20 Drug: NS 0.9% 1000 ml Route: IV; Rate: 1000 ml; Site: left forearm; lg3 21:12 Follow up: Response: No adverse reaction; IV Status: Completed infusion; IV Intake: lg3 1000ml Medication: 21:12 VIS not applicable for this client. lg3 Intake: 21:12 IV: 1000ml; Total: 1000ml. lg3 Outcome: 20:45 Discharge ordered by . pm1 21:12 Discharged to home ambulatory. lg3 21:12 Condition: stable 21:12 Discharge instructions given to patient, Instructed on discharge instructions, follow up and referral plans. Demonstrated understanding of instructions, follow-up care. 21:56 Patient left the ED. lg3 Signatures: Dispatcher [employer] EDVA Judson Roper NP PRODUCTION FOREMAN pm1 Ct Tang, RN RN Sinai Carolina RN RN lg3 Dorina De León, RN RN bm7 Nilda Plummer Tiffany tw5 Pedro Monsalve RN RN as6
[2022-04-11 02:10] VITALS: TEMP 97.2
[2022-04-11 02:13] VITALS: O2SAT 99
[2022-04-11 02:16] VITALS: BP 138/78
== END 2022-04-10 21:56 | disposition home or self-care (01) ==
LOC: ER 17:57
DX: K59.00 Constipation, unspecified (principal); I10 Essential (primary) hypertension; F41.9 Anxiety disorder, unspecified; J44.9 Chronic obstructive pulmonary disease, unspecified; Z99.81 Dependence on supplemental oxygen; Z88.6 Allergy status to analgesic agent; Z91.048 Other nonmedicinal substance allergy status
CPT/HCPCS: 85025; 36415; 81003; 83690; 80053; 74177; 96360; 99284; Q9967; J7030

== ENCOUNTER 2022-04-12 07:45 | Inpatient (IN) | payer OTHER ==
--- OUTSIDE RECORDS SUMMARY | 2022-04-12 07:49 | XMS REPORT | Continuity of Care Document ---
:1955 Author Organization [facility] t Address [address] [place] [address] Care Team Providers Name Role Phone Guille Justice MD Primary Care Physician Chantel Guido Attending Clinician Unavailable Doctor Unassigned, [place] Attending Clinician Unavailable DAMIAN BILLY Attending Clinician [...] form [facility] adverse 00:00: Medical reaction 00 F[facility] s Butorpha Propensi Active Anaphylaxis C HI St nol ty to 4-29 [facility] Tartrate adverse 00:00: Medical reaction 00 [facility] s Magnesiu Propensi Active Anaphylaxis Liquid U [...] Adverse Active Info Not Common Reaction Available [facility] Magnesiu Adverse Active Info Not Commo n m Reaction Available [facility] Social History Social Habit Start Date Stop Date Quantity Comments Source History of tobacco Cigarette Smoker [facility] History [facility] o f Alcohol Frequency [facility] edical Branch History [facility] o f Alcohol Std Drinks [place] [facility] [place] History [facility] o f Alcohol Binge [place] [facility] Sex Assigned At JESSICA Cifuentes [facility] Exposure to 2021-12-31 2022-01-10 Not sure University SARS-CoV-2 (event) 00:00:00 13:27:00 [facility] Tobacco use and 2018-12-28 2018-12-28 Never used JESSICA Cifuentes exposure 00:00:00 00:00:00 [facility] Alcohol intake 2018-12-28 2018-12-[address] [facility] 00:00:00 00:00:00 non-drinker of Medical nter alcohol (finding) Tobacco Comment 2018-12-27 2018-12-27 quit 2 yrs ago JESSICA crawford Luprem 00:00:00 00:00:00 [facility] Cigarettes smoked 2015-12-30 2015-12-30 Univers ity of current (pack per 00:00:00 00:00:00 [facility] ) - Reported Branch Cigarette 2015-12-30 2015-12-30 University of pack-years 00:00:00 00:00:00 [facility] Alcohol Comment 2007-02-02 2007-02-02 social drinker Unive rsity of 00:00:00 00:00:00 [facility] Smoking Status Start Date Stop Date Source Former smoker 2018-12-28 00:00:00 2018-12-28 00:00:00 [facility] Medications Ordered Filled Start Stop Current Ordering Indication Dosage Frequency Signature Comments Components Source Medication Medication Date Date Medication? Clinician (SIG) Name Name diazePAM Yes [id number] 5mg Take 1 Uni vers (VALIUM) 5 5-13 tablet by ity of mg tablet 00:00: mouth 3 (three) Medical times Branch daily as needed for Anxiety. diazePAM Yes [id number] 5mg Take 1 Uni vers (VALIUM) 5 5-13 tablet by ity of mg tablet 00:00: mouth 3 (three) Medical times Branch daily as needed for Anxiety. diazePAM Yes [id number] 5mg Take 1 Uni vers (VALIUM) 5 5-13 tablet by ity of mg tablet 00:00: mouth 3 [place] 00 (three) Medical times Branch daily as needed for Anxiety. diazePAM 2021-0 Yes [id number] 5mg Take 1 Uni vers (VALIUM) 5 5-13 tablet by ity of mg tablet 00:00: mouth 3 (three) Medical times Branch daily as needed for Anxiety. diazePAM 2021-0 Yes [id number] 5mg Take 1 Uni vers (VALIUM) 5 [...] A Medical DAY Branch AMLODIPINE 2021-0 Yes [id number] TAKE 1 Un nathen 5 mg tablet 2-14 TABLET BY ity of 00:00: MOUTH EVERY DAY Medical Branch AMLODIPINE 2021-0 Yes [id number] TAKE 1 Un nathen 5 mg tablet 2-14 TABLET BY ity of 00:00: MOUTH [place] EVERY DAY Medical Branch AMLODIPINE 2021-0 Yes [id number] TAKE 1 Un nathen 5 mg tablet 2-14 TABLET BY ity of 00:00: MOUTH [place] EVERY DAY Medical Branch AMLODIPINE 0 Yes [id number] TAKE 1 Un nathen 5 mg tablet 2-14 TABLET BY ity of 00:00: MOUTH DAY Medical Branch AMLODIPINE 0 Yes [id number] TAKE 1 Un nathen 5 mg tablet 2-14 TABLET BY ity of 00:00: MOUTH EVERY DAY Medical Branch AMLODIPINE 0 Yes [id number] TAKE 1 Un nathen 5 mg tablet 2-14 TABLET BY ity of 00:00: MOUTH EVERY DAY Medical Branch AMLODIPINE 0 Yes [id number] TAKE 1 Un nathen 5 mg tablet 2-14 TABLET BY ity of 00:00: MOUTH EVERY DAY Medical Branch diazePAM 2020-08- No [id number] 5mg Take 1 Un nathen (VALIUM) 5 [...] Medical unit CpDR Branch pantoprazol 2020-08 Yes [id number] 40mg Take 1 Univers e 40 mg EC 0-04 tablet by ity of tablet 00:00: mouth [place] 00 daily. Medical Branch pantoprazol 2020-08 Yes [id number] 40mg Take 1 Univers e 40 mg EC 0-04 tablet by ity of tablet 00:00: mouth [place] 00 daily. Medical Branch pantoprazol 2020-08 Yes [id number] 40mg Take 1 Univers e 40 mg EC 0-04 tablet by ity of tablet 00:00: mouth [place] 00 daily. Medical Branch pantoprazol 2020-08 Yes [id number] 40mg Take 1 Univers e 40 mg EC 0-04 tablet by ity of tablet 00:00: mouth [place] 00 daily. Medical Branch pantoprazol 2020-08 Yes [id number] 40mg Take 1 Univers e 40 mg EC 0-04 tablet by ity of tablet 00:00: mouth [place] 00 daily. Medical Branch pantoprazol 2020-08 Yes [id number] 40mg Take 1 Univers e 40 mg EC 0-04 tablet by ity of tablet 00:00: mouth [place] 00 daily. Medical Branch pantoprazol 2020-08 Yes [id number] 40mg Take 1 Univers e 40 mg EC 0-04 tablet by ity of tablet 00:00: mouth [place] 00 daily. [facility] predniSONE 0 Yes 5mg Take 5 mg Un nathen 5 mg tablet 4-13 by mouth. ity of 14:13: [address] predniSONE 2020-0 Yes 5mg Take 5 mg Un nathen 5 mg tablet 4-13 by mouth. ity of 14:13: [address] predniSONE 2020-0 Yes 5mg Take 5 mg Un nathen 5 mg tablet 4-13 by mouth. ity of 14:13: [address] predniSONE 2020-0 Yes 5mg Take 5 mg Un nathen 5 mg tablet 4-13 by mouth. ity of 14:13: [address] predniSONE 2020-0 Yes 5mg Take 5 mg Un nathen 5 mg tablet 4-13 by mouth. ity of 14:13: [address] predniSONE 2020-0 Yes 5mg Take 5 mg Un nathen 5 mg tablet 4-13 by mouth. ity of 14:13: [address] predniSONE 2020-0 Yes 5mg Take 5 mg Un nathen 5 mg tablet 4-13 by mouth. ity of 14:13: [address] HYDROcodone 2021-0 Yes 1{tbl} Take 1 Un nathen -acetaminop 3-12 tablet by ity of hen 7.5-325 14:37: mouth 3 [place] as mg per 07 (three) Medical tablet times Branch daily. OXYGEN-AIR Yes by Univers DELIVERY 3-12 Miscellane ity o f SYSTEMS 14:37: ous route. Tripp morgan [address] Branch HYDROcodone Yes 1{tbl} Take 1 Un nathen -acetaminop 3-12 tablet by ity of hen 7.5-325 14:37: mouth 3 [place] as mg per 07 (three) Medical tablet times Branch daily. OXYGEN-AIR Yes by Univers DELIVERY 3-12 Miscellane ity o f SYSTEMS 14:37: ous route. Tripp morgan [address] Branch HYDROcodone Yes 1{tbl} Take 1 Un nathen -acetaminop 3-12 tablet by ity of hen 7.5-325 14:37: mouth 3 [place] as mg per 07 (three) Medical tablet times Branch daily. OXYGEN-AIR Yes by Univers DELIVERY 3-12 Miscellane ity o f SYSTEMS 14:37: ous route. Tripp morgan [address] Branch HYDROcodone Yes 1{tbl} Take 1 Un nathen -acetaminop 3-12 tablet by ity of hen 7.5-325 14:37: mouth 3 [place] as mg per 07 (three) Medical tablet times Branch daily. OXYGEN-AIR Yes by Univers DELIVERY 3-12 Miscellane ity o f SYSTEMS 14:37: ous route. Tripp morgan [address] Branch HYDROcodone Yes 1{tbl} Take 1 Un nathen -acetaminop 3-12 tablet by ity of hen 7.5-325 14:37: mouth 3 [place] as mg per 07 (three) Medical tablet times Branch daily. OXYGEN-AIR Yes by Univers DELIVERY 3-12 Miscellane ity o f SYSTEMS 14:37: ous route. Tripp morgan [address] Branch HYDROcodone Yes 1{tbl} Take 1 Un nathen -acetaminop 3-12 tablet by ity of hen 7.5-325 14:37: mouth 3 [place] as mg per 07 (three) Medical tablet times Branch daily. OXYGEN-AIR Yes by Univers DELIVERY 3-12 Miscellane ity o f SYSTEMS 14:37: ous route. Tripp morgan [facility] 07 Medical Branch HYDROcodone Yes 1{tbl} Take 1 Un nathen -acetaminop 3-12 tablet by ity of hen 7.5-325 14:37: mouth 3 [place] as mg per 07 (three) Medical tablet times Branch daily. OXYGEN-AIR Yes by Univers DELIVERY 3-12 Miscellane ity o f SYSTEMS 14:37: ous route. Tripp morgan [facility] 07 Medical Branch SPIRIVA Yes INHALE 2 [...] mouth [facility] tablet 10:34: daily. Medical 04 [facility] ALPRAZolam Yes .5mg Take 0.[address] [...] Luke s 5 MG tablet 10:34: daily. [facility] josé miguel 04 Center budesonide- Yes 2{puff} [...] Yes Na Guido 15 ml C ommon [facility] Lopressor Lopressor Yes Na Guido 1 tablet Common with food [facility] Spiriva Spiriva Yes Na Guido 2 puffs Com mon Respimat Respimat [facility] Aspirin 81 Aspirin 81 Yes Na Guido 1 tablet Common [facility] Zyrtec Zyrtec Yes Na Guido 1 tablet Comm on Allergy Allergy [facility] Pageland [place] Yes Na Guido 1 tablet Common as needed [facility] Albuterol-I Albuterol-I Yes Na Guido not Common pratropium pratropium [facility] Alprazolam Alprazolam Yes Na Guido 1 tablet [facility] Symbicort Symbicort Yes Na Guido 2 puffs Common [facility] Norvasc Norvasc Yes Na Guido 1 tablet Co mmon [facility] Protonix Protonix Yes Na Guido 1/2 tablet [facility] PredniSONE PredniSONE Yes Na Guido 1 tablet [facility] Combivent Combivent Yes Na Guido not Co mmon defined [facility] Immunizations Ordered Filled Immunization Date Status Comments Sour e Immunization Name Name SARS-COV-2 COVID-19 2021-08-30 Completed Unive rsity of MODERNA 0.25ML 00:00:00 [facility] BOOSTER VACCINE Branch SARS-COV-2 COVID-19 2021-08-30 Completed Unive rsity of MODERNA 0.25ML 00:00:00 [facility] josé miguel BOOSTER VACCINE Branch SARS-COV-2 COVID-19 2021-08-30 Completed Unive rsity of MODERNA 0.25ML 00:00:00 [facility] BOOSTER VACCINE Branch SARS-COV-2 COVID-19 2021-08-30 Completed Unive rsity of MODERNA 0.25ML 00:00:00 [facility] BOOSTER VACCINE Branch SARS-COV-2 COVID-19 2021-08-30 Completed Unive rsity of MODERNA 0.25ML 00:00:00 [place] [facility]i josé miguel BOOSTER VACCINE Branch SARS-COV-2 COVID-19 2021-08-30 Completed Unive rsity of MODERNA 0.25ML 00:00:00 [facility] josé miguel BOOSTER VACCINE Branch SARS-COV-2 COVID-19 2021-08-30 Completed Unive rsity of MODERNA 0.25ML 00:00:00 [facility] BOOSTER VACCINE Branch Vital Signs Vital Name Observation Time Observation Value Comments Source Systolic blood 2022-01-10 18:39:00 164 mm[Hg] Univer sity of pressure [facility] Diastolic blood 2022-01-10 18:39:00 82 mm[Hg] Unive rsity of pressure [facility] Heart rate 2022-01-10 18:38:00 108 /min [facility] Body temperature 2022-01-10 18:38:00 37.33 Odalys [facility] height 2022-01-10 18:38:[address] [facility] Body weight 2022-01-10 18:38:[address] [facility] BMI 2022-01-10 18:38:00 27.21 kg/m2 [facility] Oxygen saturation in 2022-01-10 18:38:00 95 /min [facility] Arterial blood by [facility] Pulse oximetry Branch Procedures Procedure Date / Time Performed Performing Clinician [facility] e HOME HEALTH - OTHER 2022-02-11 05:01:00 Doctor Unassigned, No Un iversity of [facility] [place] HOME [facility]ALTH - OTHER 2022-02-07 05:01:00 Doctor Unassigned, No Un iversity of [facility] HOME HEALTH - OTHER 2022-02-03 05:01:00 Doctor Unassigned, No Un iversity of [facility] HOME HEALTH - OTHER 2022-01-17 05:01:00 Doctor Unassigned, No Un iversity of [facility] HOME HEALTH - OTHER 2021-12-29 05:01:00 Doctor Unassigned, No Un iversity of [facility] HOME HEALTH - OTHER 2021-12-20 05:01:00 Doctor Unassigned, No Un iversity of [facility] [place] Plan of Care Planned Activity Planned Date Details Comments Source Future Scheduled 2020-05-[address] [facility] Test 00:00:00 (#1) [code = [facility] Center INFLUENZA VACCINE (#1)] Future Scheduled [address] [facility] Test 00:00:00 (procedure) [code = [facility] 41161674] Future Scheduled [address] [facility] Test 00:00:00 malignant neoplasm Medical C enter of cervix (procedure) [code = 774386362] Future Scheduled [address] [facility] Test 00:00:00 malignant neoplasm Medical C enter of breast (procedure) [code = 845142617] Future Scheduled [address] [facility] Test 00:00:00 malignant neoplasm Medical C enter of colon (procedure) [code = 103559814] Encounters Start End Encounter Admission Attending Care Care Encounter Source Date/Time Date/Time Type Type Clinicians Facility Department ID 2021-09-25 Outpatient [facility]antel [facility] [id number] 2 Common 11:46:50 [id number] [facility] 2021-09-25 Outpatient GuidoChantel [facility] ST[facility] [id number] 2 Common 11:44:44 [id number] [facility] 2022-02-11 2022-02-11 Orders Doctor DONNA [id number] Univers 00:00:00 00:00:00 Only Unassigned, JONATHAN [id number] ity of [place] [facility] 4.2.7.2.686 Shawn as [phone] [facility] 009 Branch 2022-02-07 2022-02-07 Orders Doctor DONNA Mejias2.840.114 [id number] Univers 00:00:00 00:00:00 Only Unassigned, JONATHAN [id number] ity of [place] [facility] 4.2.7.2.686 Shawn as [phone] [facility] 009 Branch 2022-02-03 2022-02-03 Orders Doctor DONNA [id number] Univers 00:00:00 00:00:00 Only Unassigned, JONATHAN [id number] ity of [place] [facility] 4.2.7.2.686 Shawn as [phone] [address] 2022-01-17 2022-01-17 Orders Doctor DONNA [id number] Univers 00:00:00 00:00:00 Only Unassigned, JONATHAN [id number] ity of [place] [facility] 4.2.7.2.686 Shawn as [phone] [address] 2022-01-10 2022-01-[address] [facility] [id number] Univers 13:00:00 13:55:59 DAMIAN ity of [facility] 2022-01-10 2022-01-10 [facility] [id number] Univers 13:00:00 13:15:00 Visit [facility] [id number] it y of [place] 4.2.7.2.686 Shawn as RIZWANA?BLEA [phone] [address] MEDICAL OFFICE BUILDING 2021-12-29 2021-12-29 Orders Doctor THOMPSON 1.2.840.114 [id number] Univers 00:00:00 00:00:00 Only Unassigned, JONATHAN [id number] ity of [place] [facility] 4.2.7.2.686 Shawn as [phone] [address] 2021-12-20 2021-12-20 Orders Doctor THOMPSON 1.2.840.114 [id number] Univers 00:00:00 00:00:00 Only Unassigned, JONATHAN [id number] ity of [place] [facility] 4.2.7.2.686 Shawn as [phone] [address] 2021-03-22 2021-03-22 [facility] 1.2.840.114 [id number] 00:00:00 00:00:00 [facility] [id number] [place] 4.2.7.2.686 Professio [phone] [place] [address] [address] 2021-03-21 2021-03-21 [facility] 1.2.840.114 [id number] 00:00:00 00:00:00 [facility] [id number] [place] 4.2.7.2.686 Professio [phone] nal 044 Office [address] 2021-02-26 2021-02-26 Office Ros [facility] 1.2.840.114 [id number] 14:45:21 15:57:07 Visit Ibrahima [place] 350.1.13.10 [place] 4.2.7.2.686 Professio [phone] nal 092 [facility] 2020-05-21 2020-05-21 Outpatient STLMLC STLMLC [id number] Common 00:00:00 00:00:00 [facility] 2020-05-21 2020-05-21 Outpatient STLMLC STLMLC [id number] Common 00:00:00 00:00:00 [facility] 2018-11-08 2018-11-08 [place]patient [id number] Common 11:45:00 11:45:00 [facility] [facility] Results Test Description Test Time Test Results Result Source Comments Comments FINE NEEDLE 2018-12-0 Medical Cytology Report Case: ASPIRATION BY 1 [id number] Authorizing CLINICIAN 16:25:00 Provider: Holly Mckeon Collected: 12/28/2018 0903 MD Delores Ordering Location: [facility] Endoscopy Received: 12/28/2018 1103 Services Pathologist: Salvador Begum MD Specimen: Pancreas PANCREAS CYST FNA BY CLINICIAN (CYTOSPINS AND CELL BLOCK OF ASPIRATE): - NEGATIVE FOR MALIGNANCY - The mucin stain is negative Signing Pathologist Direct Phone Line: [phone] signed by Salvador Begum MD on 12/29/2018 at 4:25 PMThe mucin stain is negative and the control slide shows positive staining as expected.85815, 00025, 02521Awbs cysts in the pancreas, largest measuring 2.0 cmPANCREAS CYST FNA27 mls in cytorich red; 4 cytospins, 1 mucin stain, cell blockCollected: [id number]: [id number] interpretation of this case included the use of immunohistochemistry or special stains. MUCINImmunohistochemistry technical testing was performed at [facility], Pathology Laboratory where it was developed and [...] qualified to perform high complexity clinical laboratory testing.[facility], Department of Pathology, [address] [place] [address], [facility], [address] [place] [address], [facility], [facility] of [facility]ology, [address] [place] [address], TISSUE EXAM Surgical Pathology Report 1 Case: [id number] Authorizing 10:28:00 Provider: Holly Mckeon Collected: 12/28/2018 0924 MD Delores Ordering Location: [facility] Endoscopy Received: 12/28/2018 1253 Services Pathologist: Kurtis Luna MD Specimen: Ampulla PART A AMPULLARY BIOPSY:PARTIALLY DENUDED NON-NEOPLASTIC SMALL INTESTINAL MUCOSA WITHOUT SIGNIFICANT HISTOPATHOLOGIC ALTERATION.NEGATIVE FOR DYSPLASIA OR INVASIVE CARCINOMA. Signing Pathologist Direct Phone Line: [phone] signed by Kurtis Luna MD on 12/29/2018 at 10:28 [id number] pancreatic lesionampullaThe container is labeled "ampulla" and [...] this type of specimen.FINE NEEDLE ASPIRATE (FNA) [id number] 13:00:00 Test Item Value Reference Range Interpretation Comments CYTOLOGY RESULT POINTER See Separate Report (RAMEZ) (test code = 2629)
--- NOTE | 2022-04-12 08:28 | EDPHYS ---
Physician Documentation [facility] Name: Mila Whiting Age: 66 yrs Sex: Female : 1955 Arrival Date: 04/12/2022 Time: 07:47 Bed 6 Private MD: ED Physician Zaheer Ugarte HPI: 04/12 08:22 This 66 yrs old Black Female presents to ER via EMS with complaints of Breathing jesus Difficulty. 08:22 The patient has shortness of breath at rest, with light activity. Onset: The jesus symptoms/episode began/occurred just prior to arrival, this morning. Duration: The symptoms are continuous, and are steadily getting worse. The patient's shortness of breath has no apparent modifying factors. Associated signs and symptoms: Pertinent positives: non-productive cough, nausea. Severity of symptoms: At their worst the symptoms were moderate in the emergency department the symptoms are unchanged. The patient has not experienced similar symptoms in the past. Historical: - Allergies: 07:50 liquid magnesium; jg9 07:50 Stadol; jg9 - PMHx: 07:50 acid reflux; Anxiety; COPD; Home O2 4 Lpm; Hypertension; spinal stenosis; jg9 - PSHx: 07:50 Cholecystectomy; right ankle sx; hernia repair; jg9 - Immunization history:: Adult Immunizations up to date. - Social history:: Smoking status: Patient denies any tobacco usage or history of. ROS: 08:23 Constitutional: Negative for fever, chills, and weight loss, Eyes: Negative for injury, jesus pain, redness, and discharge, ENT: Negative for injury, pain, and discharge, Neck: Negative for injury, pain, and swelling, Abdomen/GI: Negative for abdominal pain, nausea, vomiting, diarrhea, and constipation, Back: Negative for injury and pain, : Negative for injury, bleeding, discharge, and swelling, MS/Extremity: Negative for injury and deformity, Skin: Negative for injury, rash, and discoloration, Neuro: Negative for headache, weakness, numbness, tingling, and seizure, Psych: Negative for depression, anxiety, suicide ideation, homicidal ideation, and hallucinations, Allergy/Immunology: Negative for hives, rash, and allergies, Endocrine: Negative for neck swelling, polydipsia, polyuria, polyphagia, and marked weight changes, Hematologic/Lymphatic: Negative for swollen nodes, abnormal bleeding, and unusual bruising. 08:23 Cardiovascular: Positive for palpitations. 08:23 Respiratory: Positive for cough, dyspnea on exertion, shortness of breath, at rest. 08:23 MS/extremity: Negative for acute changes. Exam: 08:23 Constitutional: This is a well developed, well nourished patient who is awake, alert, jesus and in no acute distress. Head/Face: Normocephalic, atraumatic. Eyes: Pupils equal round and reactive to light, extra-ocular motions intact. Lids and lashes normal. Conjunctiva and sclera are non-icteric and not injected. Cornea within normal limits. Periorbital areas with no swelling, redness, or edema. ENT: Nares patent. No nasal discharge, no septal abnormalities noted. Tympanic membranes are normal and external auditory canals are clear. Oropharynx with no redness, swelling, or masses, exudates, or evidence of obstruction, uvula midline. Mucous membranes moist. Neck: Trachea midline, no thyromegaly or masses palpated, and no cervical lymphadenopathy. Supple, full range of motion without nuchal rigidity, or vertebral point tenderness. No Meningismus. Chest/axilla: Normal chest wall appearance and motion. Nontender with no deformity. No lesions are appreciated. Abdomen/GI: Soft, non-tender, with normal bowel sounds. No distension or tympany. No guarding or rebound. No evidence of tenderness throughout. Back: No spinal tenderness. No costovertebral tenderness. Full range of motion. Skin: Warm, dry with normal turgor. Normal color with no rashes, no lesions, and no evidence of cellulitis. MS/ Extremity: Pulses equal, no cyanosis. Neurovascular intact. Full, normal range of motion. Neuro: Awake and alert, GCS 15, oriented to person, place, time, and situation. Cranial nerves II-XII grossly intact. Motor strength 5/5 in all extremities. Sensory grossly intact. Cerebellar exam normal. Normal gait. Psych: Awake, alert, with orientation to person, place and time. Behavior, mood, and affect are within normal limits. 08:23 Cardiovascular: Rate: tachycardic, Rhythm: regular, Pulses: Pulses are 4+ in left popliteal artery, bilateral radial, brachial, femoral, popliteal, posterior tibial and and dorsalis pedis arteries.. Heart sounds: normal, Edema: is not appreciated, JVD: is not appreciated. 08:23 ECG was reviewed by the Attending Physician. Vital Signs: 07:47 BP 146 / 81; Pulse 121; Resp 18 S; Temp 99.7; Pulse Ox 96% on 4 lpm NC; Weight 64.41 kg jg9 (R); Height 5 ft. 1 in. (154.94 cm) (R); Pain 0/10; 09:00 BP 120 / 63; Pulse 106; Resp 17 S; Pulse Ox 98% on 4 lpm NC; Pain 5/10; jg9 09:30 BP 128 / 65; Pulse 112; Resp 19 S; Pulse Ox 93% on 4 lpm NC; jg9 10:00 BP 128 / 68; Pulse 112; Resp 22 S; Pulse Ox 94% on 4 lpm NC; jg9 10:30 BP 107 / 49; Pulse 110; Resp 24 S; Pulse Ox 97% on 4 lpm NC; jg9 11:00 BP 143 / 75; Pulse 103; Resp 21 S; Pulse Ox 93% on 4 lpm NC; jg9 11:15 BP 135 / 78; Pulse 101; Resp 21; Pulse Ox 94% on BiPAP; jg9 07:47 Body Mass Index 26.83 (64.41 kg, 154.94 cm) j9 MDM: 08:00 Patient medically screened. [facility] 08:25 Differential diagnosis: Anemia asthma, Bronchitis CHF exacerbation, Chronic Obstructive jesus Pulmonary Disease pulmonary edema, Pulmonary Embolism reactive airway disease, Unstable Angina. Antibiotic administration: Levaquin given. Differential Diagnosis sepsis, flu. The patient's Wells Deep Vein Thrombosis Score was calculated as follows: Heart Rate >100 BPM (1.5 Pts) Imm/Surg in last 4 wks (1.5 Pts) Total Score: 3-6 Pts - Mod Risk. The patient's pulmonary embolism risk score was calculated as follows: the patients heart rate is greater than 100 beats per minute (1.5 Pts) patient has experienced immobilization or surgery in the last four weeks (1.5 Pts) Total Score: 3-6 points. This patient was found to be at moderate risk for a pulmonary embolism by using the Well's assessment criteria. Immunization status: Pneumococcal vaccine: Influenza vaccine: Data reviewed: vital signs, nurses notes, lab test result(s), EKG, radiologic studies, plain films. Data interpreted: gambling monitor: rate is 121 beats/min, rhythm is regular, Pulse oximetry: on room air is 90 %. Test interpretation: by ED physician or midlevel provider: ECG, plain radiologic studies. Counseling: I had a detailed discussion with the patient and/or guardian regarding: the historical points, exam findings, and any diagnostic results supporting the discharge/admit diagnosis, lab results, radiology results, the need for further work-up and treatment in the hospital. 04/12 08:11 Order name: Basic Metabolic Panel; Complete Time: 10:22 [facility] 04/12 08:11 Order name: CBC with Diff; Complete Time: 09:43 [facility] 04/12 08:11 Order name: LFT's; Complete Time: 10:22 [facility] 04/12 08:11 Order name: Magnesium; Complete Time: 10:22 [facility] 04/12 08:11 Order name: NT PRO-BNP; Complete Time: 10:22 [facility] 04/12 08:11 Order name: PT-INR; Complete Time: 09:43 [facility] 04/12 08:11 Order name: Troponin HS; Complete Time: 10:22 [facility] 04/12 08:11 Order name: TSH; Complete Time: 10:22 [facility] 04/12 08:12 Order name: Lactate; Complete Time: 09:43 [facility] 04/12 08:12 Order name: Blood Culture Adult (2) [facility] 04/12 08:12 Order name: Flu; Complete Time: 10:22 [facility] 04/12 08:54 Order name: SARS RAPID; Complete Time: 09:43 ss 04/12 09:06 Order name: CBC with Automated Diff EDDE 04/12 09:07 Order name: CBC with Automated Diff EDMS 04/12 08:11 Order name: XRAY Chest (1 view); Complete Time: 09:43 [facility] 04/12 08:11 Order name: EKG; Complete Time: 08:11 jesus 04/12 09:07 Order name: Comprehensive Metabolic Panel EDDE 04/12 09:07 Order name: Comprehensive Metabolic Panel EDDE 04/12 09:44 Order name: ABG [facility] 04/12 10:22 Order name: BIPAP [facility] 04/12 08:11 Order name: Cardiac monitoring; Complete Time: 08:17 [facility] 04/12 08:11 Order name: EKG - Nurse/Tech; Complete Time: 08:17 jesus 04/12 08:11 Order name: IV Saline Lock; Complete Time: 09:10 [facility] 04/12 08:11 Order name: Labs collected and sent; Complete Time: 09: [facility] 04/12 08:11 Order name: O2 Per Protocol; Complete Time: 08: [facility] 04/12 08:11 Order name: O2 Sat Monitoring; Complete Time: 08: [facility] 04/12 09:06 Order name: CONS Physician Consult EDMS 04/12 09:06 Order name: Heart Healthy EDMS EC: Rate is 114 beats/min. Rhythm is regular. QRS Oblong is Normal. WI interval is normal. [facility] QRS interval is normal. QT interval is normal. No Q waves. T waves are Normal. No ST changes noted. Clinical impression: LVH, Sinus tachycardia, and No evidence of ischemia. Interpreted by me. Reviewed by me. Administered Medications: 08:45 Drug: Xopenex (levalbuterol) 2.5 mg Route: Inhalation; jg9 09:00 Follow up: Response: No adverse reaction j9 08:45 Drug: AtroVENT (ipratropium) Aerosol 0.5 mg Route: Inhalation; jg9 09:00 Follow up: Response: No adverse reaction j9 09:00 Drug: Tylenol 650 mg {Note: patient c/o headache 01/07.} Route: PO; jg9 10:52 Follow up: Response: No adverse reaction jg9 09:05 Drug: Pepcid (famotidine) 20 mg Route: IVP; Site: right forearm; jg9 09:30 Follow up: Response: No adverse reaction j9 09:06 Drug: SOLU-Medrol (methylPrednisoLONE) 125 mg Route: IVP; Site: right forearm; jg9 09:30 Follow up: Response: No adverse reaction jg9 09:10 Drug: levofloxacin 500 mg Volume: 100 ml; Route: IVPB; Infused Over: 60 mins; Site: jg9 right forearm; 10:10 Follow up: IV Status: Completed infusion; IV Intake: 100ml jg9 10:00 Drug: NS 0.9% 1000 ml Route: IV; Rate: 1 bolus; Site: right forearm; jg9 11:11 Follow up: IV Status: Completed infusion; IV Intake: 1000ml jg9 11:10 Drug: Magnesium Sulfate 2 grams Route: IVPB; Infused Over: 2 hrs; Site: right forearm; jg9 11:11 Drug: Xopenex (levalbuterol) 1.25 mg Route: Inhalation; jg9 11:31 Follow up: Response: No adverse reaction jg9 11:11 Drug: Ativan (LORazepam) 0.5 mg Route: IVP; Site: right forearm; jg9 11:20 Follow up: Response: No adverse reaction; Anxiety decreased jg9 Disposition Summary: 04/12/22 08:28 Hospitalization Ordered Hospitalization Status: Inpatient Admission jesus Provider: Matt Krishnan cha Location: Telemetry/MedSurg (Inpatient) jesus Condition: Fair jesus Problem: new jesus Symptoms: have improved jesus Bed/Room Type: Standard jesus Room Assignment: 214(04/12/22 10:25) dw Diagnosis - Dyspnea jesus - COPD/ Chronic obstructive pulmonary disease with (acute) exacerbation jesus - Hypoxemia jesus - Hypomagnesemia jesus - Acute and chronic respiratory failure with hypercapnia jesus Forms: - Medication Reconciliation Form jesus - SBAR form jesus Signatures: Dispatcher [employer] Cande Curran RN RN dw Anderson, Corey, MD MD cha Gilmore, Jennifer, RN RN jg9 Corrections: (The following items were deleted from the chart) 10:25 08:28 jesus grace
--- NOTE | 2022-04-12 08:28 | ER ---
Nurse's Notes [facility] Name: Mila Whiting Age: 66 yrs Sex: Female : 1955 Arrival Date: 04/12/2022 Time: 07:47 Bed 6 Private MD: Diagnosis: Dyspnea;COPD/ Chronic obstructive pulmonary disease with (acute) exacerbation;Hypoxemia;Hypomagnesemia;Acute and chronic respiratory failure with hypercapnia Presentation: 04/12 07:47 Chief complaint: EMS states: we got a call \T\ 4 am with c/o sob but the patient did not jg9 want to go to the er, we were then toned out again sometime later and the patient was continuing to c/o sob and reported that she just got out the hospital yesterday and they said the patient was constipated. Patient on 4 L home O2 talking on the phone since she arrived in no obvious distress although she initially reported feeling anxious up arrival. Coronavirus screen:. Ebola Screen: Patient negative for fever greater than or equal to 101.5 degrees Fahrenheit, and additional compatible Ebola Virus Disease symptoms Patient denies exposure to infectious person. Patient denies travel to an Ebola-affected area in the 21 days before illness onset. Initial Sepsis Screen: Does the patient meet any 2 criteria? HR > 90 bpm. Yes Does the patient have a suspected source of infection? No. Patient's initial sepsis screen is negative. Risk Assessment: Do you want to hurt yourself or someone else? Patient reports no desire to harm self or others. Onset of symptoms is unknown. 07:47 Method Of Arrival: EMS: [facility] 9 07:47 Acuity: CRISTY 3 jg9 Triage Assessment: 07:45 General: Appears uncomfortable, Behavior is anxious. Pain: Denies pain. Respiratory: jg9 Reports shortness of breath Onset: The symptoms/episode began/occurred at an unknown time. the patient has mild shortness of breath. 07:51 EENT: No deficits noted. Neuro: No deficits noted. Cardiovascular: No deficits noted. jg9 GI: Reports constipation. : No deficits noted. Derm: No deficits noted. Musculoskeletal: No deficits noted. Historical: - Allergies: 07:50 liquid magnesium; jg9 07:50 Stadol; jg9 - PMHx: 07:50 acid reflux; Anxiety; COPD; Home O2 4 Lpm; Hypertension; spinal stenosis; jg9 - PSHx: 07:50 Cholecystectomy; right ankle sx; hernia repair; jg9 - Immunization history:: Adult Immunizations up to date. - Social history:: Smoking status: Patient denies any tobacco usage or history of. Screenin:51 Abuse screen: Denies threats or abuse. Denies injuries from another. Nutritional jg9 screening: No deficits noted. Tuberculosis screening: No symptoms or risk factors identified. Fall Risk None identified. Assessment: 07:52 Cardiovascular: No deficits noted. Rhythm is sinus tachycardia. Respiratory: Airway is jg9 patent Respiratory effort is even, unlabored, Breath sounds are coarse bilaterally. 08:00 Reassessment: No changes from previously documented assessment. 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 09:00 Reassessment: No changes from previously documented assessment. Patient and/or family jg9 updated on plan of care and expected duration. Pain level reassessed. Patient is alert, oriented x 3, equal unlabored respirations, skin warm/dry/pink. 10:00 Reassessment: No changes from previously documented assessment. Patient and/or family jg9 updated on plan of care and expected duration. Pain level reassessed. Patient is alert, oriented x 3, equal unlabored respirations, skin warm/dry/pink. patient resting quietly in bed. 11:00 Reassessment: No changes from previously documented assessment. Patient and/or family jg9 updated on plan of care and expected duration. Pain level reassessed. Patient is alert, oriented x 3, equal unlabored respirations, skin warm/dry/pink. Patient states feeling better. Patient states symptoms have improved. Vital Signs: 07:47 BP 146 / 81; Pulse 121; Resp 18 S; Temp 99.7; Pulse Ox 96% on 4 lpm NC; Weight 64.41 kg jg9 (R); Height 5 ft. 1 in. (154.94 cm) (R); Pain 0/10; 09:00 BP 120 / 63; Pulse 106; Resp 17 S; Pulse Ox 98% on 4 lpm NC; Pain 5/10; jg9 09:30 BP 128 / 65; Pulse 112; Resp 19 S; Pulse Ox 93% on 4 lpm NC; jg9 10:00 BP 128 / 68; Pulse 112; Resp 22 S; Pulse Ox 94% on 4 lpm NC; jg9 10:30 BP 107 / 49; Pulse 110; Resp 24 S; Pulse Ox 97% on 4 lpm NC; jg9 11:00 BP 143 / 75; Pulse 103; Resp 21 S; Pulse Ox 93% on 4 lpm NC; jg9 11:15 BP 135 / 78; Pulse 101; Resp 21; Pulse Ox 94% on BiPAP; jg9 07:47 Body Mass Index 26.83 (64.41 kg, 154.94 cm) jg9 ED Course: 07:47 Patient arrived in ED. jg9 07:47 Kaila Chris, CARLOS is Primary Nurse. jg9 07:50 Triage completed. jg9 07:50 Arm band placed on. jg9 07:52 Patient has correct armband on for positive identification. Bed in low position. Call jg9 light in reach. Side rails up X 1. 08:00 Zaheer Ugarte MD is Attending Physician. jesus 08:22 XRAY Chest (1 view) In Process Unspecified. EDMS 08:27 Matt Krishnan MD is Hospitalizing Provider. jesus 08:58 Inserted saline lock: 20 gauge in right forearm, using aseptic technique. 7 11:20 BIPAP Sent. jg9 11:21 No provider procedures requiring assistance completed. jg9 11:21 Patient admitted, IV remains in place. jg9 Administered Medications: 08:45 Drug: Xopenex (levalbuterol) 2.5 mg Route: Inhalation; jg9 09:00 Follow up: Response: No adverse reaction jg9 08:45 Drug: AtroVENT (ipratropium) Aerosol 0.5 mg Route: Inhalation; jg9 09:00 Follow up: Response: No adverse reaction jg9 09:00 Drug: Tylenol 650 mg {Note: patient c/o headache 01/07.} Route: PO; jg9 10:52 Follow up: Response: No adverse reaction jg9 09:05 Drug: Pepcid (famotidine) 20 mg Route: IVP; Site: right forearm; jg9 09:30 Follow up: Response: No adverse reaction jg9 09:06 Drug: SOLU-Medrol (methylPrednisoLONE) 125 mg Route: IVP; Site: right forearm; jg9 09:30 Follow up: Response: No adverse reaction jg9 09:10 Drug: levofloxacin 500 mg Volume: 100 ml; Route: IVPB; Infused Over: 60 mins; Site: jg9 right forearm; 10:10 Follow up: IV Status: Completed infusion; IV Intake: 100ml jg9 10:00 Drug: NS 0.9% 1000 ml Route: IV; Rate: 1 bolus; Site: right forearm; jg9 11:11 Follow up: IV Status: Completed infusion; IV Intake: 1000ml jg9 11:10 Drug: Magnesium Sulfate 2 grams Route: IVPB; Infused Over: 2 hrs; Site: right forearm; jg9 11:11 Drug: Xopenex (levalbuterol) 1.25 mg Route: Inhalation; jg9 11:31 Follow up: Response: No adverse reaction jg9 11:11 Drug: Ativan (LORazepam) 0.5 mg Route: IVP; Site: right forearm; jg9 11:20 Follow up: Response: No adverse reaction; Anxiety decreased jg9 Medication: 11:21 VIS not applicable for this client. jg9 Intake: 10:10 IV: 100ml; Total: 100ml. jg9 11:11 IV: 1000ml; Total: 1100ml. jg9 Outcome: 08:28 Decision to Hospitalize by Provider. [facility] 11:21 Condition: stable jg9 11:31 Admitted to Med/surg accompanied by nurse, via stretcher, room 214, with oxygen, with jg9 chart, Report called to CARLOS Hooker 12:01 Patient left the ED. jh6 Signatures: Dispatcher [employer] EDPR Zaheer Ugarte MD MD cha Hastedt, Jennifer, RN RN jh6 Maria A Nielsen 7 Kaila Chris, RN RN jg9 Corrections: (The following items were deleted from the chart) 09:13 07:52 Respiratory: Airway is patent Respiratory effort is even, unlabored, Breath jg9 sounds are clear bilaterally. jg9
[2022-04-12] MEDS ORDERED: ACETAMINOPHEN 325 MG TABLET ONE (08:43)
[2022-04-12] MEDS ORDERED: METHYLPREDNISOLONE 125 MG INJ ONE (08:43)
[2022-04-12] MEDS ORDERED: FAMOTIDINE 20 MG/2 ML VIAL IV ONE (08:44)
[2022-04-12] MEDS ORDERED: Levofloxacin500mg IV 500 MG/100 ML BAG IV ONE (08:44)
[2022-04-12] MEDS ORDERED: LEVALBUTEROL 1.25 MG/3 ML NEB ONE ×2 (08:44→11:13)
[2022-04-12] MEDS ORDERED: IPRATROPIUM BROM 0.5MG/2.5ML ONE (08:44)
[2022-04-12 08:50] LABS: Protime INR 1.17
[2022-04-12 08:58] LABS: Absolute Lymphocytes (CBC) 1.2 K/uL (0.7-4.9); Hematocrit 34.5 % (36.0-45.0); Lymphocytes % 12.4 % (15.3-44.8); MPV 8.1 fL (7.6-11.3); RBC Red Blood Cell Count 3.97 M/uL (3.86-4.86)
[2022-04-12] MEDS ORDERED: ACETAMINOPHEN 500 MG TAB PO PRN (09:01)
[2022-04-12] MEDS ORDERED: ALBUTEROL 2.5 MG/3 ML NEB SOL NEB PRN (09:01)
[2022-04-12] MEDS ORDERED: ONDANSETRON 4 MG/2 ML VIAL IV PRN (09:01)
--- NOTE | 2022-04-12 09:01 | RAD REPORT ---
EXAM DESCRIPTION: Roby Single View04/12/2022 8:20 am CLINICAL HISTORY: Chest pain COMPARISON: November 2021 FINDINGS: Mild bibasilar opacities are unchanged. This probably represents combination of mild atel ectasis and chronic opacities. Upper lobes appear clear Mild cardiomegaly
[2022-04-12 09:21] LABS: SARS-CoV-2 Antigen Rapid Res Negative (Negative)
[2022-04-12] MEDS ORDERED: NA CHLORIDE 0.9% 1,000 ML ONE (09:27)
[2022-04-12 09:43] LABS: ALT/SGPT 41 U/L (12-78); AST/SGOT 30 U/L (15-37); Alkaline Phosphatase 80 U/L (45-117); BUN Blood Urea Nitrogen 4 mg/dL (7-18); Bilirubin Direct 0.1 mg/dL (0-0.2); Bilirubin Total 0.2 mg/dL (0.2-1.0); Glomerular Filtration Rate 108 ml/min (=/>90); Glucose Level 122 mg/dL (74-106); Magnesium 1.6 mg/dL (1.8-2.4); NT PRO-BNP 98 pg/mL (<125); Potassium 3.8 mmol/L (3.5-5.1); Protein, Total 8.2 g/dL (6.4-8.2); Sodium Level 135 mmol/L (136-145); Troponin High Sensitivity 11.5 pg/mL (<58.9)
[2022-04-12 09:44] LABS: Bicarbonate > 45 mmol/L (21-32)
[2022-04-12] MEDS ORDERED: ALPRAZOLAM 0.5 MG TABLET PO ONE (10:00)
[2022-04-12] MEDS ORDERED: LORazepam 2 MG/ML VIAL ONE (11:11)
[2022-04-12] MEDS ORDERED: Magnesium Sulfate 2gm IVPB 2 G/50 ML BAG IV ONE (11:11)
[2022-04-12 11:19] LABS: Arterial Blood Carboxyhemoglob 1.1 % (0-1.5); Blood Gas Oxyhemoglobin 89.5 % (94-97); Blood O2 Saturation 91.5 % (92-98.5)
[2022-04-12 12:14] VITALS: BMI 26.8
[2022-04-12] MEDS: NA CHLORIDE 0.9% 1,000 ML IV SCH (12:29)
[2022-04-12] MEDS: clonazePAM 0.5 MG TAB PO SCH ×3 (14:00→21:08)
[2022-04-12] MEDS: METHYLPREDNISOLONE 40 MG INJ IV SCH (16:46)
[2022-04-12] MEDS: MORPHINE 2 MG/ML SYR IV PRN (17:47)
[2022-04-12] MEDS ORDERED: BISACODYL E.C. 5 MG TAB PO ONE (17:49)
[2022-04-12] MEDS: IPRATROPIUM BROM 0.5MG/2.5ML NEB SCH (19:42)
[2022-04-12] MEDS: ARFORMOTEROL TARTRATE 15 MCG/2 ML VIAL.NEB NEB SCH (19:45)
[2022-04-13] MEDS: MORPHINE 2 MG/ML SYR IV PRN ×5 (00:53→20:33)
[2022-04-13] MEDS: METHYLPREDNISOLONE 40 MG INJ IV SCH ×3 (00:53→16:56)
[2022-04-13] MEDS: NA CHLORIDE 0.9% 1,000 ML IV SCH (00:54)
[2022-04-13 05:42] LABS: Absolute Lymphocytes (CBC) 0.6 K/uL (0.7-4.9); Hematocrit 32.9 % (36.0-45.0); Lymphocytes % 5.9 % (15.3-44.8); MCV 86.4 fL (80-100); MPV 8.1 fL (7.6-11.3); RBC Red Blood Cell Count 3.81 M/uL (3.86-4.86)
[2022-04-13 06:13] LABS: Albumin 2.7 g/dL (3.4-5.0); Bilirubin Total 0.2 mg/dL (0.2-1.0); Potassium 4.5 mmol/L (3.5-5.1); Protein, Total 7.5 g/dL (6.4-8.2)
[2022-04-13] MEDS: IPRATROPIUM BROM 0.5MG/2.5ML NEB SCH ×2 (08:00→19:50)
[2022-04-13] MEDS: ARFORMOTEROL TARTRATE 15 MCG/2 ML VIAL.NEB NEB SCH ×2 (08:00→19:50)
[2022-04-13] MEDS: clonazePAM 0.5 MG TAB PO SCH ×2 (08:11→13:50)
[2022-04-13 09:21] LABS: Platelet Estimate ADEQ; White Blood Cell Scan OK (OK)
[2022-04-13 09:22] LABS: Blood Morphology Comment NOT SEEN (NOT SEEN)
[2022-04-13] MEDS: ALPRAZOLAM 0.25 MG TABLET PO PRN (22:25)
--- NOTE | 2022-04-13 23:39 | P.HP ---
Certification for Inpatient Patient admitted to: Inpatient With expected LOS: >2 Midnights Patient will require the following post-hospital care: None Practitioner: I am a practitioner with admitting privileges, knowledge of patient current condition, hospital course, and medical plan of care. Services: Services provided to patient in accordance with Admission requirements found in Title 42 Section 412.3 of the Code of Federal Regulations Patient History Date of Service: 04/12/22 Reason for admission: acute COPD exacerbation History of Present Illness: patient is a 66-year-old female who is well known to me from multiple prior admissions who comes into the hospital with difficulty breathing. Patient has a longstanding history of respiratory distress. She follows up with Pulmonary locally. She has had a lot of stressors recently. She was kicked out of her apartment and her daughter that she has had for 15 years recently. Her mother was also recently placed on hospice. She has been having a lot of difficulty with her breathing and she came to the emergency room hypercapnic. She was started on nebs, steroids, and CPAP. She was admitted for acute respiratory failure. Allergies butorphanol tartrate [From Stadol] Allergy (Severe, Verified 03/15/21 14:55) seizures magnesium sulfate Allergy (Severe, Verified 03/15/21 14:55) Anaphylaxis Home Medications: Amlodipine Besylate [Norvasc] 5 mg PO DAILY 08/12/12 Pantoprazole Sodium [Protonix] 40 mg PO DAILY 08/12/12 Hydrocodone/Acetaminophen [Hydrocodone-Acetamin 7.5-325] 1 tab PO TID PRN 12/27/20 Budesonide/Formoterol Fumarate [Symbicort 160-4.5 Mcg Inhaler] 2 puff PO PRN PRN 10/29/21 Gabapentin 1 cap PO TID 10/29/21 acetaZOLAMIDE [Diamox*] 125 mg PO BID 30 Days #60 tab 10/30/21 Albuterol Neb [Proventil 0.083% Neb Soln] 2.5 mg NEB [id number] PRN #120 amp 12/04/21 Ipratropium Neb [Atrovent*] 0.5 mg NEB [id number] #120 amp 12/04/21 Diazepam [Valium] 5 mg PO TID PRN 04/12/22 Umeclidinium [place] [Incruse Ellipta] 62.5 mcg IH DAILY 04/12/22 - Past Medical/Surgical History Has patient received pneumonia vaccine in the past: No Diabetic: No -: Hypertension -: Hepatitis C-treated -: COPD -: Anxiety -: Hernia -: home 02 -: Stenosis -: HX OF UTI -: Cholecystectomy -: Right ankle surgery -: Hernia Repair Psychosocial/ Personal History: Lives at home alone - Family History Mother Medical History: Hypertension, Diabetes Father Medical History: Hypertension, Diabetes - Social History Smoking Status: Never smoker Alcohol use: No CD- Drugs: No Caffeine use: Yes Review of Systems 10-point ROS is otherwise unremarkable Physical Examination - Vital Signs Temperature: 96.6 F Blood Pressure: 147/83 Pulse: 102 Respirations: 18 Pulse Ox (%): 98 - Physical Exam General: Alert, In no apparent distress, Oriented x3 HEENT: Atraumatic, PERRLA, Mucous membr. moist/pink, EOMI, Sclerae nonicteric Neck: Supple, 2+ carotid pulse no bruit, No LAD, Without JVD or thyroid abnormality Respiratory: Diminished, Expiratory wheezes Cardiovascular: Regular rate/rhythm, Normal S1 S2, No murmurs Gastrointestinal: Normal bowel sounds, Soft and benign, Non-distended, No tenderness Musculoskeletal: No clubbing, No swelling, No tenderness Integumentary: No rashes Neurological: Normal gait, Normal speech, Normal strength at 5/5 x4 extr, Normal tone, Sensation intact, Cranial nerves 3-12 intact, Normal affect Lymphatics: No axilla or inguinal lymphadenopathy Assessment & Plan - Problems (Diagnosis) (1) Acute and chronic respiratory failure ([id number]) Current Visit: No Status: Acute Qualifiers: (2) Acute respiratory failure with hypercapnia Current Visit: No Status: Acute (3) Anxiety Onset Date: 12/28/17 Current Visit: No Status: Acute (4) Seizure Current Visit: No Status: Acute (5) Hypertension Onset Date: 12/28/17 Current Visit: No Status: Chronic - Plan -nebs, steroids, and antibiotics -O2 per protocol. -BIPAP support -Anxiolytics -repeat chest x-ray -pulmonary consultation Discharge Plan: Home Plan to discharge in: Greater than 2 days - Advance Directives Does patient have a Living Will: No Does patient have a Durable POA for Healthcare: No - Code Status/Comfort Care Code Status Assessed: Yes Code Status: Full Code Critical Care: No Time Spent Managing PTS Care (In Minutes): 35
--- NOTE | 2022-04-13 23:40 | P.PN ---
Subjective Date of Service: 04/13/22 Subjective: No new changes, No C/O voiced, Improving, New changes Review of Systems 10-point ROS is otherwise unremarkable Physical Examination - Vital Signs Temperature: 96.6 F Blood Pressure: 147/83 Pulse: 102 Respirations: 18 Pulse Ox (%): 98 - Physical Exam General: Alert, In no apparent distress, Oriented x3 Respiratory: Diminished, Expiratory wheezes Cardiovascular: Regular rate/rhythm, Normal S1 S2, No murmurs Gastrointestinal: Normal bowel sounds, Soft and benign, Non-distended, No tenderness Musculoskeletal: No clubbing, No swelling, No tenderness Neurological: Sensation intact, Cranial nerves 3-12 intact - Studies Medications List Reviewed: Yes Assessment & Plan - Problems (Diagnosis) (1) Acute and chronic respiratory failure ([id number]) Current Visit: No Status: Acute Qualifiers: (2) Acute respiratory failure with hypercapnia Current Visit: No Status: Acute (3) Anxiety Onset Date: 12/28/17 Current Visit: No Status: Acute (4) Seizure Current Visit: No Status: Acute (5) Hypertension Onset Date: 12/28/17 Current Visit: No Status: Chronic - Plan Continue with plan of care as mentioned below: -nebs, steroids, and antibiotics -O2 per protocol. -BIPAP support -Anxiolytics -repeat chest x-ray -pulmonary consultation Discharge Plan: Home Plan to discharge in: Greater than 2 days - Advance Directives Does patient have a Living Will: No Does patient have a Durable POA for Healthcare: No - Code Status/Comfort Care Code Status: Full Code Critical Care: No Time Spent Managing PTS Care (In Minutes): 35
[2022-04-13] MEDS ORDERED: DIAZEPAM 5 MG TABLET PO PRN (23:41)
[2022-04-13] MEDS ORDERED: Symbicort 160-4.5 Mcg Inhaler PO PRN (23:41)
[2022-04-14] MEDS: METHYLPREDNISOLONE 40 MG INJ IV SCH ×2 (00:23→08:07)
[2022-04-14] MEDS: MORPHINE 2 MG/ML SYR IV PRN ×2 (00:23→08:06)
[2022-04-14 05:58] LABS: Arterial Blood Carboxyhemoglob 1.1 % (0-1.5); Blood Gas Oxyhemoglobin 92.9 % (94-97); Blood O2 Saturation 94.8 % (92-98.5)
[2022-04-14 06:44] LABS: Absolute Lymphocytes (CBC) 0.5 K/uL (0.7-4.9); Hematocrit 32.6 % (36.0-45.0); Lymphocytes % 4.7 % (15.3-44.8); MCV 85.6 fL (80-100)
[2022-04-14 06:54] LABS: Magnesium 1.9 mg/dL (1.8-2.4)
[2022-04-14] MEDS ORDERED: PANTOPRAZOLE 40MG TABLET PO SCH (07:30)
[2022-04-14] MEDS ORDERED: acetaZOLAMIDE 250 MG TAB PO SCH (08:00)
[2022-04-14] MEDS: GABAPENTIN 300 MG CAP PO SCH ×3 (08:07→21:22)
[2022-04-14] MEDS: ALPRAZOLAM 0.25 MG TABLET PO PRN ×3 (08:07→22:33)
[2022-04-14] MEDS: AMLODIPINE 5 MG TAB PO SCH (08:07)
[2022-04-14] MEDS: PANTOPRAZOLE 40MG TABLET PO SCH (08:08)
[2022-04-14] MEDS: ARFORMOTEROL TARTRATE 15 MCG/2 ML VIAL.NEB NEB SCH ×2 (08:20→19:35)
[2022-04-14] MEDS: IPRATROPIUM BROM 0.5MG/2.5ML NEB SCH ×2 (08:20→19:35)
--- NOTE | 2022-04-14 08:31 | RAD REPORT ---
EXAM DESCRIPTION: RAD - Chest Single View - 04/14/2022 5:45 am CLINICAL HISTORY: pneumonia Chest pain. COMPARISON: Chest Single View dated 04/12/2022; Chest Single View dated 12/22/2021; Chest Single View dated 12/01/2021; Chest Single View dated 10/28/2021 FINDINGS: Portable technique limits examination quality. Mild bilateral pulmonary opacities persists, however appear moderately improved since comparative ga dy. The heart is mildly enlarged in size. Trace pleural fluid bilaterally. No displaced fractures. IMPRESSION: Moderate improvement in lung aeration seen since comparative study.
--- NOTE | 2022-04-14 10:12 | P.PN ---
Subjective Date of Service: 04/14/22 Chief Complaint: acute COPD exacerbation Subjective: Improving No acute events overnight. She reports that she is still experiencing shortness of breath and dyspnea, but it has improved significantly since admission. Review of Systems 10-point ROS is otherwise unremarkable Respiratory: Cough, Dry, Shortness of Breath, SOB with Excertion Physical Examination - Vital Signs Temperature: 96.4 F Blood Pressure: 178/90 Pulse: 88 Respirations: 18 Pulse Ox (%): 97 - Physical Exam General: Alert, In no apparent distress, Oriented x3 HEENT: Atraumatic, PERRLA, Mucous membr. moist/pink, EOMI, Sclerae nonicteric Neck: Supple, JVD not distended Respiratory: Expiratory wheezes (faint, end-expiratory), Other (SpO2 94 % on 4 L NC) Cardiovascular: No edema, Regular rate/rhythm, Normal S1 S2, No gallops, No rubs, No murmurs Gastrointestinal: Normal bowel sounds, Soft and benign, Non-distended, No tenderness, No rebound, No guarding Musculoskeletal: No clubbing Integumentary: No rashes Neurological: Normal speech, Cranial nerves 3-12 intact, Normal affect - Studies Medications List Reviewed: Yes Assessment And Plan - Plan # Acute on Chronic Hypercapnic Hypoxemic Respiratory Failure - likely secondary to Acute Chronic Obstructive Pulmonary Disease Exacerbation # SIRS Criteria (Tachycardia, Tachypnea) secondary to above - no current source of infection Currently, she is on 4 L nasal cannula (home dose), with improvement of her SpO2 readings to 94 %. - Evaluation thus far: - D-Dimer = pending - If positive, obtain CT chest angiogram +/- bilateral lower extremity Doppler - Initial ABG = pH 7.26, PCO2 108, PO2 68.8 - Chest x-ray = "moderate improvement in lung aeration seen since comparative study." - Management plan: - Consulted Pulmonary Medicine - recommendations appreciated - Acetazolamide, bronchodilators, and steroids per Pulm - Consulted Respiratory Therapy - Supplemental oxygen to maintain SpO2 > 92% - Encouraged incentive spirometry # Hypertension - Continue home amlodipine # Anxiety - Continue home gabapentin, PRN alprazolam Lakhwinder Ackerman M.D. Discharge Plan: Home Plan to discharge in: 24 Hours
[2022-04-14] MEDS: predniSONE 20 MG TAB PO SCH ×2 (10:22→21:23)
[2022-04-14] MEDS: HYDROCODONE/APAP 7.5/325 MG TAB PO PRN ×2 (10:42→21:23)
--- NOTE | 2022-04-14 12:24 | P.CNS ---
Date of Consult: 04/14/22 Reason for Consult: Acute on chronic respiratory failure Chief Complaint: acute COPD exacerbation History of Present Illness: Patient is 66 years of age well-known to me she has terminal COPD with frequent exacerbations currently has significant emotional distress came in to the hospital does not recall the events and also has a noninvasive ventilator at home compliant with her medication she is now very alert responsive not taking her Diamox at home Allergies butorphanol tartrate [From Stadol] Allergy (Severe, Verified 03/15/21 14:55) seizures magnesium sulfate Allergy (Severe, Verified 03/15/21 14:55) Anaphylaxis Home Medications: Amlodipine Besylate [Norvasc] 5 mg PO DAILY 08/12/12 Pantoprazole Sodium [Protonix] 40 mg PO DAILY 08/12/12 Hydrocodone/Acetaminophen [Hydrocodone-Acetamin 7.5-325] 1 tab PO TID PRN 12/27/20 Budesonide/Formoterol Fumarate [Symbicort 160-4.5 Mcg Inhaler] 2 puff PO PRN PRN 10/29/21 Gabapentin 1 cap PO TID 10/29/21 acetaZOLAMIDE [Diamox*] 125 mg PO BID 30 Days #60 tab 10/30/21 Albuterol Neb [Proventil 0.083% Neb Soln] 2.5 mg NEB [id number] PRN #120 amp 12/04/21 Ipratropium Neb [Atrovent*] 0.5 mg NEB [id number] #120 amp 12/04/21 Umeclidinium [place] [Incruse Ellipta] 62.5 mcg IH DAILY 04/12/22 - Past Medical/Surgical History Diabetic: No -: Hypertension -: Hepatitis C-treated -: COPD -: Anxiety -: Hernia -: home 02 -: Stenosis -: HX OF UTI -: Cholecystectomy -: Right ankle surgery -: Hernia Repair Psychosocial/ Personal History: Lives at home alone - Family History Mother Medical History: Hypertension, Diabetes Father Medical History: Hypertension, Diabetes - Social History Smoking Status: Unknown if ever smoked Alcohol use: No CD- Drugs: No Caffeine use: Yes Review of Systems 10-point ROS is otherwise unremarkable General: Weakness Respiratory: Cough, Shortness of Breath Physical Examination Temp Pulse Resp BP Pulse Ox 97.9 F 112 H 18 153/81 H 92 04/14/22 11:44 04/14/22 11:44 04/14/22 11:44 04/14/22 11:44 04/14/22 11:44 General: Alert, In no apparent distress, Oriented x3, Mild distress Respiratory: Diminished, Expiratory wheezes Cardiovascular: No edema, Normal pulses Gastrointestinal: Normal bowel sounds, Soft and benign Musculoskeletal: No clubbing, No swelling - Problems (1) Acute and chronic respiratory failure ([id number]) Current Visit: No Status: Acute Plan: Patient is 66 years of age and terminal COPD recurrent exacerbations admitted with change in mental status and significant emotional stress recently pliant wi th medications apart from Diamox as a noninvasive ventilator at home as it needs to be adjusted patient's PCO2 was over 100 but possible that she was not using her NIV patient has been instructed to resume her Diamox for now changed to to 50 mg daily instead of 125 twice daily patient also takes benzodiazepine diazepam in addition to hydrocodone this probably suppressing her respiratory drive sparing use of diazepam i/may be consider changing over to another antianxiety lytic agent she does have frequent occurrences of hypercapnia possible discharge tomorrow Qualifiers:
[2022-04-14] MEDS: acetaZOLAMIDE 250 MG TAB PO SCH (16:56)
[2022-04-14] MEDS ORDERED: ARFORMOTEROL TARTRATE 15 MCG/2 ML VIAL.NEB ONE (20:17)
--- NOTE | 2022-04-14 21:14 | RAD REPORT ---
EXAM DESCRIPTION: USExtrem Venous W Compress Bil04/14/2022 9:08 pm CLINICAL HISTORY: Leg pain COMPARISON: 2009 FINDINGS: The common femoral, superficial femoral, popliteal and posterior tibial veins bilaterally are compressible and demonstrate augmentation. Doppler demonstrates good flow. Grayscale, color and spectral analysis performed on all vessels IMPRESSION: No evidence of deep venous thrombosis involving either lower extremity.
[2022-04-15 03:50] LABS: Magnesium 1.9 mg/dL (1.8-2.4); Potassium 4.3 mmol/L (3.5-5.1)
--- NOTE | 2022-04-15 08:24 | EKG ---
Test Date: 2022-04-12 Test Time: 08:05:39 [employer]: [facility] MEASUREMENT RESULTS: Intervals: Rate: 114 MD: 154 QRSD: 84 QT: 276 QTc: 380 [place]: P: 87 MD: 154 QRS: 96 T: 63 INTERPRETIVE STATEMENTS: Sinus tachycardia Right atrial enlargement Rightward axis Pulmonary disease pattern Voltage criteria for left ventricular hypertrophy Abnormal ECG Compared to ECG 12/22/2021 10:30:51 Right-axis deviation now present Atrial premature complex(es) no longer present Electronically Signed On 04-15-22 08:12:41 CDT by Rusty Castillo
[2022-04-15] MEDS: ARFORMOTEROL TARTRATE 15 MCG/2 ML VIAL.NEB NEB SCH ×2 (09:07→19:48)
[2022-04-15] MEDS: IPRATROPIUM BROM 0.5MG/2.5ML NEB SCH ×2 (09:07→19:47)
[2022-04-15] MEDS: acetaZOLAMIDE 250 MG TAB PO SCH ×2 (10:07→17:31)
[2022-04-15] MEDS: predniSONE 20 MG TAB PO SCH ×2 (10:07→20:59)
[2022-04-15] MEDS: ALPRAZOLAM 0.25 MG TABLET PO PRN ×2 (10:07→17:31)
[2022-04-15] MEDS: HYDROCODONE/APAP 7.5/325 MG TAB PO PRN ×2 (10:08→20:59)
[2022-04-15] MEDS: GABAPENTIN 300 MG CAP PO SCH ×3 (10:08→21:00)
[2022-04-15] MEDS: PANTOPRAZOLE 40MG TABLET PO SCH (10:08)
[2022-04-15] MEDS: AMLODIPINE 5 MG TAB PO SCH (10:08)
--- NOTE | 2022-04-15 10:11 | RAD REPORT ---
EXAM DESCRIPTION: CT - Chest For Pe Angio - 04/15/2022 6:43 am CLINICAL HISTORY: The patient is 66 years old and is Female; R/O PE, dyspnea, elevated DD TECHNIQUE: Axial computed tomographic angiography images of the chest with intravenous contrast. T his CT exam was performed using one or more of the following dose reduction techniques: automated e xposure control, adjustment of the mA and/or kV according to patient size, and/or use of iterative re construction technique. MIP reconstructed images were created and reviewed. Oblique reformatted images were created and reviewed. DLP: 417 mGy*cm COMPARISON: Chest radiograph of the same day. FINDINGS: PULMONARY ARTERIES: Unremarkable. No pulmonary embolism. AORTA: Atherosclerotic disease. No thoracic aortic aneurysm. LUNGS: Chronic lung changes. Tree-in-bud opacities in the left upper lobe. Small left lower lobe co nsolidation. PLEURAL SPACE: Unremarkable. No significant effusion. No pneumothorax. HEART: Unremarkable. No cardiomegaly. No significant pericardial effusion. No evidence of RV dysfunction. BONES/JOINTS: Diffuse osteopenia. No acute fracture. No dislocation. SOFT TISSUES: Unremarkable. LYMPH NODES: Unremarkable. No enlarged lymph nodes. LIVER: Hepatic cirrhosis and steatosis. IMPRESSION: 1. No pulmonary embolism. 2. Chronic lung changes and left-sided infectious process. 3. Hepatic cirrhosis and steatosis. Electronically signed by: Jt Childress DO 04/15/2022 12:09 AM CDT Due to temporary technical issues with the PACS/Fluency reporting system, reports are being signed by the in house radiologists without review as a courtesy to insure prompt reporting. The interpreting radiologist is fully responsible for the content of the report.
--- NOTE | 2022-04-15 13:58 | P.DS ---
Admission Date: 04/12/22 Discharge Date: 04/15/22 Disposition: ROUTINE DISCHARGE Discharge Condition: GOOD Reason for Admission: acute COPD exacerbation Consultations: 1. Pulmonary Medicine Vital Signs/Physical Exam: Temp Pulse Resp BP Pulse Ox 97.7 F 109 H 21 H 132/70 98 04/15/22 12:00 04/15/22 12:00 04/15/22 12:00 04/15/22 12:00 04/15/22 12:00 Laboratory Data at Discharge: WBC 11.5 K/uL (4.3-10.9) H D 04/14/22 06:25 Hgb 10.2 g/dL (12.0-15.0) L 04/14/22 06:25 Hct 32.6 % (36.0-45.0) L 04/14/22 06:25 Plt Count 366 K/uL (152-406) 04/14/22 06:25 PT 12.9 SECONDS (9.5-12.5) H 04/12/22 08:20 INR 1.17 04/12/22 08:20 Sodium 136 mmol/L (136-145) 04/15/22 03:21 Potassium 4.3 mmol/L (3.5-5.1) 04/15/22 03:21 BUN 11 mg/dL (7-18) 04/15/22 03:21 Creatinine 0.51 mg/dL (0.55-1.3) L 04/15/22 03:21 Glucose 159 mg/dL (74-106) H 04/15/22 03:21 Magnesium 1.9 mg/dL (1.8-2.4) 04/15/22 03:21 Total Bilirubin 0.2 mg/dL (0.2-1.0) 04/13/22 05:05 AST 27 U/L (15-37) 04/13/22 05:05 ALT 45 U/L (12-78) 04/13/22 05:05 Alkaline Phosphatase 74 U/L (45-117) 04/13/22 05:05 Home Medications: Amlodipine Besylate [Norvasc] 5 mg PO DAILY 08/12/12 Pantoprazole Sodium [Protonix] 40 mg PO DAILY 08/12/12 Hydrocodone/Acetaminophen [Hydrocodone-Acetamin 7.5-325] 1 tab PO TID PRN 12/27/20 Budesonide/Formoterol Fumarate [Symbicort 160-4.5 Mcg Inhaler] 2 puff PO PRN PRN 10/29/21 Gabapentin 1 cap PO TID 10/29/21 Albuterol Neb [Proventil 0.083% Neb Soln] 2.5 mg NEB [id number] PRN #120 amp 12/04/21 Ipratropium Neb [Atrovent*] 0.5 mg NEB [id number] #120 amp 12/04/21 Umeclidinium [place] [Incruse Ellipta] 62.5 mcg IH DAILY 04/12/22 Albuterol Neb [Proventil 0.083% Neb Soln] 2.5 mg NEB [id number] PRN amp 04/15/22 acetaZOLAMIDE [Diamox*] 250 mg PO DAILY #30 tab 04/15/22 predniSONE [Prednisone*] 10 mg PO BID 5 Days tab 04/15/22 New Medications: acetaZOLAMIDE [Diamox*] 250 mg PO DAILY #30 tab Physician Discharge Instructions: 1. Please schedule a follow-up with your PCP in 3-5 days 2. Please schedule a follow-up with Pulmonary (Dr. Smith) in 5-7 days Diet: AHA Activity: Ad zena Followup: Mj Mcintyre MD [Primary Care Provider] -
[2022-04-15 15:03] LABS: Absolute Lymphocytes (CBC) 0.2 K/uL (0.7-4.9); Hematocrit 36.2 % (36.0-45.0); Lymphocytes % 1.6 % (15.3-44.8); MCV 86.8 fL (80-100); RBC Red Blood Cell Count 4.16 M/uL (3.86-4.86)
--- NOTE | 2022-04-15 15:05 | P.PN ---
Subjective Date of Service: 04/15/22 Chief Complaint: acute COPD exacerbation No acute events overnight. She is eager to be discharged home, but continues to experience shortness of breath and dyspnea. Review of Systems Respiratory: Cough, Shortness of Breath, SOB with Excertion Physical Examination - Vital Signs Temperature: 97.7 F Blood Pressure: 132/70 Pulse: 109 Respirations: 21 Pulse Ox (%): 98 - Studies Medications List Reviewed: Yes Assessment And Plan - Plan - Physical Exam General: Alert, In no apparent distress, Oriented x3 HEENT: Atraumatic, PERRLA, Mucous membr. moist/pink, EOMI, Sclerae nonicteric Neck: Supple, JVD not distended Respiratory: Expiratory wheezes (faint, end-expiratory), Other (SpO2 100 % on 4 L NC) Cardiovascular: No edema, Regular rate/rhythm, Normal S1 S2, No gallops, No rubs, No murmurs Gastrointestinal: Normal bowel sounds, Soft and benign, Non-distended, No tenderness, No rebound, No guarding Musculoskeletal: No clubbing Integumentary: No rashes Neurological: Normal speech, Cranial nerves 3-12 intact, Normal affect # Sepsis likely secondary to Left-Sided Community Acquired Pneumonia She meets SIRS criteria based on HR > 90 bpm and RR > 20 breaths/min and the suspected source is community-acquired pneumonia. Plan: - Time Zero = 13:55 on 04/15/2022 - Activated Code Sepsis at 14:15 on 04/15/2022 - Sepsis order set was initiated - Initial Lactate was ordered - Blood cultures drawn before antibiotics were given - Broad spectrum antibiotics started: Ceftriaxone + Doxycycline - In regards to fluids: - 30 mL/kg of IV fluids was not administered given SBP > 90, MAP > 65 # Acute on Chronic Hypercapnic Hypoxemic Respiratory Failure - likely secondary to Acute Chronic Obstructive Pulmonary Disease Exacerbation (improved) # History of Hepatitis C s/p treatment Currently, she is on 4 L nasal cannula (home dose), with improvement of her SpO2 readings to 94 %. - Evaluation thus far: - D-Dimer = 931 -CT chest angiogram = "1. No pulmonary embolism. 2. Chronic lung changes and left-sided infectious process. 3. Hepatic cirrhosis and steatosis." - Bilateral Lower Extremity Doppler = " no evidence of deep venous thrombosis involving either lower extremity." - Initial ABG = pH 7.26, PCO2 108, PO2 68.8 - Chest x-ray = "moderate improvement in lung aeration seen since comparative study." - Management plan: - Consulted Pulmonary Medicine - recommendations appreciated - Acetazolamide, bronchodilators, and steroids per Pulm - Consulted Respiratory Therapy - Supplemental oxygen to maintain SpO2 > 92% - Encouraged incentive spirometry # Hypertension - Continue home amlodipine # Anxiety - Continue home gabapentin, PRN alprazolam - Caution with anxiolytics given hypercapnia Lakhwinder Ackerman M.D. Discharge Plan: Home Plan to discharge in: 48 Hours
[2022-04-15] MEDS: DOXYCYCLINE 100 MG in NA CHLORIDE 0.9% 100 ML IVPB SCH (21:01)
[2022-04-16 03:51] LABS: Absolute Lymphocytes (CBC) 0.4 K/uL (0.7-4.9); Hematocrit 33.5 % (36.0-45.0); Lymphocytes % 4.3 % (15.3-44.8); MPV 8.6 fL (7.6-11.3); RBC Red Blood Cell Count 3.81 M/uL (3.86-4.86)
[2022-04-16 04:09] LABS: Albumin 2.9 g/dL (3.4-5.0); Bilirubin Total 0.1 mg/dL (0.2-1.0); Potassium 4.1 mmol/L (3.5-5.1); Protein, Total 7.2 g/dL (6.4-8.2)
[2022-04-16 04:16] VITALS: O2SAT 96
[2022-04-16] MEDS: ARFORMOTEROL TARTRATE 15 MCG/2 ML VIAL.NEB NEB SCH (08:09)
[2022-04-16] MEDS: IPRATROPIUM BROM 0.5MG/2.5ML NEB SCH (08:09)
[2022-04-16] MEDS: GABAPENTIN 300 MG CAP PO SCH ×2 (08:44→13:23)
[2022-04-16] MEDS: AMLODIPINE 5 MG TAB PO SCH (08:44)
[2022-04-16] MEDS: acetaZOLAMIDE 250 MG TAB PO SCH ×2 (08:44→16:18)
[2022-04-16] MEDS: PANTOPRAZOLE 40MG TABLET PO SCH (08:45)
[2022-04-16] MEDS: predniSONE 20 MG TAB PO SCH (08:45)
[2022-04-16] MEDS: HYDROCODONE/APAP 7.5/325 MG TAB PO PRN (08:54)
[2022-04-16] MEDS: ALPRAZOLAM 0.25 MG TABLET PO PRN (08:55)
[2022-04-16] MEDS ORDERED: ENOXAPARIN 40 MG/0.4 ML SQ SCH (09:00)
[2022-04-16] MEDS ORDERED: CEFTRIAXONE 1,000 MG in NA CHLORIDE 0.9% 50 ML IVPB SCH (09:00)
[2022-04-16] MEDS: DOXYCYCLINE 100 MG in NA CHLORIDE 0.9% 100 ML IVPB SCH (09:33)
[2022-04-16 15:53] VITALS: BP 132/67; TEMP 98.1
--- NOTE | 2022-04-16 17:00 | P.DS ---
Admission Date: 04/12/22 Discharge Date: 04/16/22 Disposition: ROUTINE DISCHARGE Discharge Condition: GOOD Reason for Admission: acute COPD exacerbation Consultations: 1. Pulmonary Medicine Hospital Course: DIAGNOSES: # Sepsis likely secondary to Left-Sided Community Acquired Pneumonia # Acute on Chronic Hypercapnic Hypoxemic Respiratory Failure (on 4 L home oxygen) - likely secondary to Acute Chronic Obstructive Pulmonary Disease Exacerbation (resolved) # History of Hepatitis C s/p treatment # Hypertension # Anxiety HOSPITAL COURSE: Ms. Mila Whiting is a 66 year old female with a past medical history significant for chronic respiratory failure due to chronic obstructive pulmonary disease on 4 L home oxygen, hypertension, and anxiety who was admitted to the [facility] on 04/12/2022 for shortness of breath. Upon further evaluation, she was found to have acute on chronic hypercapnic hypoxemic respiratory failure, which was thought to be secondary to acute COPD exacerbation. Her initial ABG was notable for a pH of 7.26, PCO2 of 108, and a PO2 of 68.8. Chest x-ray revealed, "mild bibasilar opacities are unchanged. This probably represents combination of mild atelectasis and chronic opacities. Upper lobes appear clear. Mild cardiomegaly." D-dimer was elevated at 931. A bilateral lower extremity Doppler revealed, "no evidence of deep venous thrombosis involving either lower extremity." CT chest angiogram revealed, "1. No pulmonary embolism. 2. Chronic lung changes and left-sided infectious process. 3. Hepatic cirrhosis and steatosis." In addition to her respiratory failure, she was found to have sepsis secondary to left-sided pneumonia. She was treated with ceftriaxone and doxycycline with significant improvement of her symptoms. She was discharged on an additional 7 days of cefdinir and doxycycline to complete her course of antibiotics. On 04/16/2022, she was seen on rounds and deemed medically stable for discharge. She was discharged with instructions to schedule follow-up appointments with her PCP (Dr. Mcintyre) in 3-5 days and with Pulmonary Medicine (Dr. Smith) in 5-7 days. She was provided prescriptions for acetazolamide, cefdinir, and doxycycline. She was given the opportunity to ask questions and reported no further questions. Furthermore, all questions were answered to the best of my ability. Today, I personally spent 20 minutes on her case, of which greater than 50% of the time was spent in patient education, counseling, and coordination of care as described above. - Physical Exam General: Alert, In no apparent distress, Oriented x3 HEENT: Atraumatic, PERRLA, Mucous membr. moist/pink, EOMI, Sclerae nonicteric Neck: Supple, JVD not distended Respiratory: SpO2 100 % on 4 L NC, clear to auscultation bilaterally Cardiovascular: No edema, Regular rate/rhythm, Normal S1 S2, No gallops, No rubs, No murmurs Gastrointestinal: Normal bowel sounds, Soft and benign, Non-distended, No tenderness, No rebound, No guarding Musculoskeletal: No clubbing Integumentary: No rashes Neurological: Normal speech, Cranial nerves 3-12 intact, Normal affect Vital Signs/Physical Exam: Temp Pulse Resp BP Pulse Ox 98.1 F 107 H 18 132/67 95 04/16/22 15:52 04/16/22 15:52 04/16/22 15:52 04/16/22 15:52 04/16/22 15:52 Laboratory Data at Discharge: WBC 9.30 K/uL (4.3-10.9) D 04/16/22 03:03 Hgb 10.3 g/dL (12.0-15.0) L 04/16/22 03:03 Hct 33.5 % (36.0-45.0) L 04/16/22 03:03 Plt Count 323 K/uL (152-406) 04/16/22 03:03 PT 12.9 SECONDS (9.5-12.5) H 04/12/22 08:20 INR 1.17 04/12/22 08:20 Sodium 137 mmol/L (136-145) 04/16/22 03:03 Potassium 4.1 mmol/L (3.5-5.1) 04/16/22 03:03 BUN 9 mg/dL (7-18) 04/16/22 03:03 Creatinine 0.51 mg/dL (0.55-1.3) L 04/16/22 03:03 Glucose 221 mg/dL (74-106) H 04/16/22 03:03 Magnesium 1.9 mg/dL (1.8-2.4) 04/15/22 03:21 Total Bilirubin 0.1 mg/dL (0.2-1.0) L 04/16/22 03:03 AST 10 U/L (15-37) L 04/16/22 03:03 ALT 38 U/L (12-78) 04/16/22 03:03 Alkaline Phosphatase 60 U/L (45-117) 04/16/22 03:03 Home Medications: RX: Amlodipine Besylate [Norvasc] 5 mg PO DAILY 08/12/12 RX: Pantoprazole Sodium [Protonix] 40 mg PO DAILY 08/12/12 RX: Hydrocodone/Acetaminophen [Hydrocodone-Acetamin 7.5-325] 1 tab PO TID PRN 12/27/20 RX: Budesonide/Formoterol Fumarate [Symbicort 160-4.5 Mcg Inhaler] 2 puff PO PRN PRN 10/29/21 RX: Gabapentin 1 cap PO TID 10/29/21 RX: Albuterol Neb [Proventil 0.083% Neb Soln] 2.5 mg NEB [id number] PRN #120 amp 12/04/21 RX: Ipratropium Neb [Atrovent*] 0.5 mg NEB [id number] #120 amp 12/04/21 RX: Umeclidinium [place] [Incruse Ellipta] 62.5 mcg IH DAILY 04/12/22 RX: Albuterol Neb [Proventil 0.083% Neb Soln] 2.5 mg NEB [id number] PRN amp 04/15/22 RX: acetaZOLAMIDE [Diamox*] 250 mg PO DAILY #30 tab 04/15/22 RX: predniSONE [Prednisone*] 10 mg PO BID 5 Days tab 04/15/22 Cefdinir [Cefdinir*] 300 mg PO BID 7 Days #14 cap 04/16/22 RX: Doxycycline Hyclate 100 mg PO BID 7 Days #14 tab 04/16/22 New Medications: Cefdinir [Cefdinir*] 300 mg PO BID 7 Days #14 cap RX: acetaZOLAMIDE [Diamox*] 250 mg PO DAILY #30 tab RX: Doxycycline Hyclate 100 mg PO BID 7 Days #14 tab Physician Discharge Instructions: 1. Please schedule a follow-up with your PCP (Dr. Mcintyre) in 3-5 days 2. Please schedule a follow-up with Pulmonary (Dr. Smith) in 5-7 days Diet: AHA Activity: Ad zena Followup: Mj Mcintyre MD [Primary Care Provider] - Finesse Smith MD [ACTIVE - CAN ADMIT] -
== END 2022-04-16 19:30 | disposition home or self-care (01) | DRG 189 ==
LOC: ER 07:45 → ERHOLD 09:01 → 2ND 11:33
PROVIDERS: ADMIT Hospitalist; ATTEND Hospitalist
PROC: 5A09457 Assistance with Respiratory Ventilation, 24-96 Consecutive Hours, Continuous Positive Airway Pressure (ICD-10-PCS; principal; 2022-04-12)
DX: J96.22 Acute and chronic respiratory failure with hypercapnia (principal); A41.9 Sepsis, unspecified organism; J18.9 Pneumonia, unspecified organism; J44.0 Chronic obstructive pulmonary disease with (acute) lower respiratory infection; J44.1 Chronic obstructive pulmonary disease with (acute) exacerbation; J96.21 Acute and chronic respiratory failure with hypoxia; I10 Essential (primary) hypertension; B19.20 Unspecified viral hepatitis C without hepatic coma; F41.9 Anxiety disorder, unspecified; G40.909 Epilepsy, unspecified, not intractable, without status epilepticus; Z99.81 Dependence on supplemental oxygen; Z20.822 Contact with and (suspected) exposure to COVID-19
CPT/HCPCS: 36415; 71045; 71275; 74177; 80048; 80053; 80076; 81003; 82805; 83605; 83690; 83735; 83880; 84443; 84484; 85025; 85379; 85610; 87040; 87804; 87811; 93005; 93970; 94660; 94760; 96360; 96361; 96365; 96375; 99284; 99285; J1650; J2270; J2920; J2930; J3475; J7030; J7512; J7605; Q9967

== ENCOUNTER 2022-06-30 13:38 | Emergency (ER) | payer OTHER ==
--- OUTSIDE RECORDS SUMMARY | 2022-06-30 13:48 | XMS REPORT | Continuity of Care Document ---
:1955 Author Organization [facility] [place] t Address [address] [place] [address] Care Team Providers Name Role Phone Reshma Galan MD, Guille Gay Primary Care Physician [phone] Chantel Guido Attending Clinician Unavailable DAMIAN BILLY Attending Clinician Unavailable Damian Billy MD Attending Clinician Fabienne GONZALEZ, Harry Simmons Attending Clinician Unavailable MARIPOSA CRAIG Attending Clinician Unavailable Mariposa Craig MD Attending Clinician Jayden Cordero MD Attending Clinician JEFF SAMPSON Attending Clinician Unavailable Jeff Sampson DO Attending Clinician Doctor Unassigned, [place] Attending Clinician Unavailable ZIGGY MEJIA Attending Clinician Unavailable ZIGGY MEJIA Attending Clinician Unavailable IZZY TSAI Attending Clinician Unavailable Ibrahima Sommer MD Attending Clinician IBRAHIMA SOMMER Attending Clinician Unavailable IBRAHIMA SOMMER Attending Clinician Unavailable Lab, Ang - Db Attending Clinician Unavailable Deborah HYLTON, Zana Veliz Attending Clinician Margie Hanson MA Attending Clinician Unavailable JOEY CASTANEDA Attending Clinician Unavailable Joey Curry S Attending Clinician Lab, Adc Fam Pob I Attending Clinician Unavailable Claudio Rhoades Attending Clinician CLAUDIO CARRASQUILLO Attending Clinician Unavailable GEORGINA ANGUIANO Attending Clinician Unavailable HOLLY MCKEON Attending Clinician Unavailable JAYDEN CORDERO Admitting Clinician Unavailable Jayden Cordero MD Admitting Clinician JEFF SAMPSON Admitting Clinician Unavailable HOLLY MCKEON Admitting Clinician Unavailable Payers Payer Name Policy Type Policy Number Effective Date Expiration Date S vicki [facility] DUAL [id number] 2021 ACCESS OPEN PPO 00:00:00 [facility] [id number] 2021 PLUS 00:00:00 INPATIENT PART B [id number] 2020 ONLY MEDICARE 00:00:00 [place] [id number] [facility] Problems Condition Condition Condition Status Onset Resolution Last Treating Co mments Source Name Details Category Date Date Treatment Clinician Date Hypercapni Hypercapni Disease Active U nivers c c 8-31 [place]ir[place] failure [place] failure [facility] Branch COPD COPD Disease Active Univers exacerbati exacerbati 5 it y of on on 00:00: [place] [facility] Symptomati Symptomati Disease Active U nivers c c 7-11 ity of menopausal menopausal [place] or female or female [facility] climacteri climacteri Br anch c states c states Essential Essential Disease Active Uni vers hypertensi hypertensi 6-05 it y of on, benign on, benign 00:[place]: [place] Spinal Spinal Disease Active Univers stenosis, stenosis, 05 ity of unspecifie unspecifie [place] region d region 00 Medica l other than other than Br anch cervical cervical [id number] Chronic Problem Active Common obstructiv Spirit e [facility] type [id number] Spinal Problem Active Common stenosis Spirit of lumbar - [facility] neurogenic Medica l claudicati Center on [id number] Other Problem Active Common chronic Spirit pain - [facility] [id number] History of Problem Active Co mmon colon Spirit polyps [facility] [id number] Anxiety Problem Active Common Spirit [facility] [id number] Essential Problem Active Comm on hypertensi Spirit on [facility] [id number] Chronic Problem Active Commo n GERD Spirit [facility] [id number] Umbilical Problem Active Commo n hernia Spirit without [facility] without [facility] gangrene [facility] [id number] History of Problem Active C ommon 9101 hepatitis Spirit C - [facility] Allergies, Adverse Reactions, Alerts Allergy Allergy Status Severity Reaction(s) Onset Inactive Treating Comm ents Source Name Type Date Date Clinician Dmu Propensi Active Anaphylaxis Liquid C HI [facility] m ty to 12-27 [facility] adverse 00:00: Medical reaction 00 [place] Butorpha Propensi Active Anaphylaxis C [facility] nol ty to 29 [facility] Tartrate adverse 00:00: Medical reaction 00 [place] Magnesiu Propensi Active Anaphylaxis Liquid U [...] of TARTRATE 00:00: [place] 00 Medical Branch Social History Social Habit Start Date Stop Date Quantity Comments Source History of Tobacco Former Smoker Com mon Spirit - Use [facility] History [facility] Alcohol Comment Medical C enter History SDOH [facility] Alcohol Std Drinks Medica l Center History SDVT [facility] Alcohol Binge Medical L[address] ter Exposure to 2022-05-11 2022-05-21 Not sure University of SARS-CoV-2 (event) 00:00:00 13:54:00 [facility] Branch History [facility] Food 2022-05-07 2022-05-07 1 Univers ity of Worry 00:00:00 00:00:00 [facility] Branch History [facility] Food 2022-05-07 2022-05-07 1 Univers ity of Scarcity 00:00:00 00:00:00 [facility] History [facility] 2022-05-07 2022-05-07 2 University o f Transport Med 00:00:00 00:00:00 [facility] [place] [facility] Branch History [facility] 2022-05-07 2022-05-07 2 University o f Transport Non-Med 00:00:00 00:00:00 [facility] Alcohol intake 2018-12-28 2018-12-[address] [facility] 00:00:00 00:00:00 non-drinker of Medical Ce nter alcohol (finding) Tobacco Comment 2018-12-27 2018-12-27 [facility]00 [facility] Tobacco use and 2018-12-27 2018-12-[address] [facility] exposure 00:00:00 00:00:00 Medical Center History [facility] 2018-12-27 2018-12-[address] [facility] Alcohol Frequency 00:00:00 00:00:00 [facility] Cigarettes smoked 2015-12-30 2015-12-30 Univers ity of current (pack per 00:00:00 00:00:00 [facility]) - Reported Branch Cigarette 2015-12-30 2015-12-30 University of pack-years 00:00:00 00:00:00 [facility] Sex Assigned At [address] [facility] 00:00:00 00:00:00 [facility] Smoking Status Start Date Stop Date Source Former Smoker 2018-10-29 00:00:00 2018-10-29 00:00:00 Common S pirit [facility] Medications Ordered Filled Start Stop Current Ordering Indication Dosage Frequency Signature Comments Components Source Medication Medication Date Date Medication? Clinician (SIG) Name Name diazePAM Yes [id number] 5mg Take 1 Uni vers (VALIUM) 5 -21 tablet by ity of mg tablet 00:00: mouth 3 [place] 00 (three) Medical times Branch daily as needed for Anxiety. cholecalcif 2021- Yes [id number] 1000U Take 1 Univers morgan, 05-05 [id number] tablet by ity o f vitamin D3, 00:00: 04:59 mouth [place] 25 mcg 00 :00 the Medical (1,000 morning Branch unit) for 5 tablet days. zinc 2021- Yes [id number] 50mg Take 1 Uni vers sulfate 50 05-05 [id number] capsule by ity of mg zinc 00:00: 04:59 mouth in [place] (220 mg) 00 :00 the Medical capsule morning Branch for 5 days. cholecalcif 2021- Yes [id number] 1000U Take 1 Univers morgan, 05-05 [id number] tablet by ity o f vitamin D3, 00:00: 04:59 mouth [place] 25 mcg 00 :00 the Medical (1,000 morning Branch unit) for 5 tablet days. zinc 2021- Yes [id number] 50mg Take 1 Uni vers sulfate 50 05-05 [id number] capsule by ity of mg zinc 00:00: 04:59 mouth in [place] (220 mg) 00 :00 the Medical capsule morning Branch for 5 days. MOMETASONE Yes Use in [facility] rs FUROATE 05-04 each ity of (NASONEX 16:58: nostril. [place] NASAL) 28 Medical Branch HYDROcodone Yes 1{tbl} Take 1 Un nathen -acetaminop 05-04 tablet by ity of hen 7.5-325 16:58: mouth 3 [place] as mg per 28 (three) Medical tablet times Branch daily. OXYGEN-AIR Yes by Univers DELIVERY 05-04 Miscellane ity o f SYSTEMS 16:58: ous route. Tri[place] [address] Medical Branch predniSONE 0 Yes 5mg Take 5 mg Un nathen 5 mg tablet 9-04 by mouth. ity of 16:58: [place] [address] Medical Branch MOMETASONE Yes Use in Unive rs FUROATE 9-04 each ity of (NASONEX 16:58: nostril. [place] NASAL) Medical Branch HYDROcodone Yes 1{tbl} Take 1 Un nathen -acetaminop 9-04 tablet by ity of hen 7.5-325 16:58: mouth 3 [place] mg per 28 (three) Medical tablet times Branch daily. OXYGEN-AIR 2021-0 Yes by Univers DELIVERY 9-04 Miscellane ity o f SYSTEMS 16:58: ous route. [place] [address] Medical Branch predniSONE Yes 5mg Take 5 mg Un nathen 5 mg tablet 9-04 by mouth. ity of 16:58: [address] Branch MOMETASONE Yes Use in Unive rs FUROATE 9-04 each ity of (NASONEX 16:58: nostril. [place] NASAL) Medical Branch HYDROcodone Yes 1{tbl} Take 1 Un nathen -acetaminop 9-04 tablet by ity of hen 7.5-325 16:58: mouth 3 [place] mg per 28 (three) Medical tablet times Branch daily. OXYGEN-AIR 2021-0 Yes by Univers DELIVERY 9-04 Miscellane ity o f SYSTEMS 16:58: ous route. [place] [address] Medical Branch predniSONE 0 Yes 5mg Take 5 mg Un nathen 5 mg tablet 9-04 by mouth. ity of 16:58: [place] [address] Medical Branch MOMETASONE Yes Use in Unive rs FUROATE 9-04 each ity of (NASONEX 16:58: nostril. [place] NASAL) Medical Branch HYDROcodone 0 Yes 1{tbl} Take 1 Un nathen -acetaminop 9-04 tablet by ity of hen 7.5-325 16:58: mouth 3 [place] mg per 28 (three) Medical tablet times Branch daily. OXYGEN-AIR 2021-0 Yes by Univers DELIVERY 9-04 Miscellane ity o f SYSTEMS 16:58: ous route. [place] [address] Medical Branch predniSONE Yes 5mg Take 5 mg Un nathen 5 mg tablet 05-04 by mouth. ity of 16:58: [address] Branch MOMETASONE Yes Use in Unive rs FUROATE 05-04 each ity of (NASONEX 16:58: nostril. [place] NASAL) Medical Branch HYDROcodone Yes 1{tbl} Take 1 Un nathen -acetaminop 05-04 tablet by ity of hen 7.5-325 16:58: mouth 3 [place] mg per 28 (three) Medical tablet times Branch daily. OXYGEN-AIR Yes by Univers DELIVERY 05-04 Miscellane ity o f SYSTEMS 16:58: ous route. [place] [address] Medical Branch predniSONE Yes 5mg Take 5 mg Un nathen 5 mg tablet 05-04 by mouth. ity of 16:58: [place] [address] Medical Branch TIOTROPIUM 2021- No Inhale. Uni vers BROMIDE 05-04 ity of (SPIRIVA 11:06: 00:00 [place] RESPIMAT 58 :00 Medical INHALE) Branch promethazin 2021- No 5mL Take 5 mL Univers e-codeine 05-04 by mouth. ity of 6.25-10 11:06: 00:00 [place] mg/5 mL 58 :00 Medical syrup Branch methocarbam Yes [id number] 500mg Take 1 Univers oL 500 mg 05-04 [id number] tablet by it y of tablet 00:00: mouth 3 (three) Medical times Branch daily as needed (Muscle spasms). methocarbam Yes [id number] 500mg Take 1 Univers oL 500 mg - [id number] tablet by it y of tablet 00:00: mouth 3 (three) Medical times Branch daily as needed (Muscle spasms). methocarbam Yes [id number] 500mg Take 1 Univers oL 500 mg - [id number] tablet by it y of tablet 00:00: mouth 3 (three) Medical times Branch daily as needed (Muscle spasms). methocarbam Yes [id number] 500mg Take 1 Univers oL 500 mg 05-04 [id number] tablet by it y of tablet 00:00: mouth 3 [place] 00 (three) Medical times Branch daily as needed (Muscle spasms). methocarbam Yes [id number] 500mg Take 1 Univers oL 500 mg 05-04 [id number] tablet by it y of tablet 00:00: mouth 3 [place] 00 (three) Medical times Branch daily as needed (Muscle spasms). acetaminoph 2022- Yes [id number] 650mg Take 2 Univers en 325 mg 05-04 [id number] tablets by ity of tablet 00:00: 04:59 mouth [place] 00 :00 every 6 Medical (six) Branch hours as needed for Pain (scale 1-3) or Temp > 38.5 C. acetaminoph 2022- Yes [id number] 650mg Take 2 Univers en 325 mg 05-04 [id number] tablets by ity of tablet 00:00: 04:59 mouth [place] 00 :00 every 6 Medical (six) Branch hours as needed for Pain (scale 1-3) or Temp > 38.5 C. acetaminoph 2022- Yes [id number] 650mg Take 2 Univers en 325 mg 05-04 [id number] tablets by ity of tablet 00:00: 04:59 mouth [place] 00 :00 every 6 Medical (six) Branch hours as needed for Pain (scale 1-3) or Temp > 38.5 C. acetaminoph 2022- Yes [id number] 650mg Take 2 Univers en 325 mg 05-04 [id number] tablets by ity of tablet 00:00: 04:59 mouth [place] 00 :00 every 6 Medical (six) Branch hours as needed for Pain (scale 1-3) or Temp > 38.5 C. acetaminoph 2022- Yes [id number] 650mg Take 2 Univers en 325 mg 05-04 [id number] tablets by ity of tablet 00:00: 04:59 mouth [place] 00 :00 every 6 Medical (six) Branch hours as needed for Pain (scale 1-3) or Temp > 38.5 C. citalopram 2021- Yes [id number] 20mg Take 1 Univers 20 mg 9- 10-05 tablet by ity of tablet 00:00: 04:59 mouth in [place] 00 :00 the Medical morning Branch for 30 days. citalopram 2021- Yes [id number] 20mg Take 1 Univers 20 mg 9- 10-05 tablet by ity of tablet 00:00: 04:59 mouth in [place] 00 :00 the Medical morning Branch for 30 days. citalopram 2021- Yes [id number] 20mg Take 1 Univers 20 mg 9- 10-05 tablet by ity of tablet 00:00: 04:59 mouth in [place] 00 :00 the Medical morning Branch for 30 days. citalopram 2021- Yes [id number] 20mg Take 1 Univers 20 mg 9- 10-05 tablet by ity of tablet 00:00: 04:59 mouth in [place] 00 :00 the Medical morning Branch for 30 days. citalopram 2021- Yes [id number] 20mg Take 1 Univers 20 mg 9- 10-05 tablet by ity of tablet 00:00: 04:59 mouth in [place] 00 :00 the Medical morning Branch for 30 days. ascorbic 2021- Yes [id number] 500mg Take 1 Univers acid, 05-04 [id number] tablet by ity o f vitamin C, 00:00: 04:59 mouth [place] 500 mg 00 :00 the Medical tablet morning Branch and 1 tablet in the evening. Do all this for 5 days. dexAMETHaso 2021- Yes [id number] 6mg Take 1 Univers ne 6 mg 05-04 [id number] tablet by ity of tablet 00:00: 04:59 mouth in [place] 00 :00 the Medical morning Branch for 5 days. ascorbic 2021- Yes [id number] 500mg Take 1 Univers acid, 05-04 [id number] tablet by ity o f vitamin C, 00:00: 04:59 mouth in [place] 500 mg 00 :00 the Medical tablet morning Branch and 1 tablet in the evening. Do all this for 5 days. dexAMETHaso 2021- Yes [id number] 6mg Take 1 Univers ne 6 mg 05-04 [id number] tablet by ity of tablet 00:00: 04:59 mouth in [place] 00 :00 the Medical morning Branch for 5 days. magnesium 2021- No 2g 2 g, IV Univ ers sulfate in 05-03 Piggyback, it y of water 2 20:30: 00:29 Administer [place] gram/50 mL 00 :00 over 60 Medica l (4 %) Minutes, Branch infusion 2 ONCE, 1 g dose, On 05/03/22 at 1530, Routine KCL 2021- No 40meq 40 mEq, Univers (KLOR-CON 05-02 Oral, ity of M20) tablet 20:45: 21:37 ONCE, 1 [place] 40 mEq 00 :00 dose, On Medical Thu05/02/22 Branch at 1545, Routine morpHINE (2 2021- No 2mg 2 mg, Slow Univers mg/mL) 05-02 IV Push, ity of injection 2 18:15: 18:10 ONCE, 1 [place] mg 00 :00 dose, On Medical Thu05/02/22 Branch at 1315, Routine methocarbam Yes 500mg 500 mg, Un nathen oL 05-02 Oral, ity of (ROBAXIN) 17:24: TIDPRN, [place] tablet 500 33 Starting Medic al mg on Thu Branch 05/02/22 at 1224, Until Discontinu ed, Routine, Muscle Spasms acetaminoph Yes 650mg 650 mg, Un nathen en 05-02 Oral, ity of (TYLENOL) 09:36: Q6HPRN, [place] tablet 650 19 Starting Medic al mg on Thu Branch 05/02/22 at 0436, Until Discontinu ed, Routine, Pain (scale 1-3) docusate Yes 100mg 100 mg, Unive rs (COLACE) 05-02 Oral, ity of capsule 100 00:45: DAILY, [place] mg 00 First dose Medical on [place] Branch 05/01/22 at 1945, Until Discontinu ed, Routine azithromyci 2021- No 500mg 500 mg, IV Univers n 05-01 Piggyback, ity of (ZITHROMAX) 19:30: 20:50 Q24H ABX, [place] 500 mg in 00 :00 3 doses, Medica l NaCl 0.9% First dose Bran ch (NS) 250 mL on L[place] VIAL-MATE 05/01/22 at IV 1430, Last piggyback dose on 05/03/22 at 1430, Administer over 60 Minutes, 250 mL
Reas on for Anti-Infec tive: Empiric Therapy for Suspected Infection< br>Empiric Therapy Site: Respirator y
Durat ion of therapy: 72 hours diazePAM 202- No 5mg 5 mg, Univers (VALIUM) 05-01 Oral, ity of tablet 5 mg 16:15: 15:33 ONCE, 1 [place] 00 :00 dose, On Medical [place] 05/01/22 Branch at 1115, Routine pantoprazol Yes 40mg 40 mg, Univ ers e 05-01 Oral, ity of (PROTONIX) 14:00: DAILY, [place] EC tablet 00 First dose Medi josé miguel 40 mg on [place] Branch 05/01/22 at 0900, Until Discontinu ed, Routine amLODIPine Yes 5mg 5 mg, Univer s (NORVASC) 05-01 Oral, ity of tablet 5 mg 14:00: DAILY, [place] 00 First dose Medical on [place] Branch 05/01/22 at 0900, Until Discontinu ed, Routine acetaZOLAMI Yes 250mg 250 mg, Un nathen DE (DIAMOX) 05-01 Oral, ity of tablet 250 14:00: DAILY, [place] mg 00 First dose Medical on [place] Branch 05/01/22 at 0900, Until Discontinu ed, Routine dexamethaso 2021- Yes 6mg 6 mg, Univ ers ne sod phos 05-01 Intravenou i ty of PF 14:00: 13:59 s, DAILY, [place] injection 6 00 :00 9 doses, Medi josé miguel mg First dose Branch on Lisseth 05/01/22 at 0900, Last dose on 05/09/22 at 0900, 1 mL magnesium 2021- No 2g 2 g, IV Univ ers sulfate in 05-01 Piggyback, it y of water 2 14:00: 18:53 Administer [place] gram/50 mL 00 :00 over 60 Medica l (4 %) Minutes, Branch infusion 2 ONCE, 1 g dose, On Liss[place] 05/01/22 at 0900, Routine enoxaparin 2021-0 Yes 40mg 40 mg, Unive rs (LOVENOX) 04-30 Subcutaneo ity of injection 22:00: [place], DAILY, [place] 40 mg 00 First dose Medical on Thu Branch 04/30/22 at 1700, Until Discontinu ed, Routine morpHINE (4 0 2021- No 2mg 2 mg, Slow Univers mg/mL) 04-30 IV Push, ity of injection 2 18:15: 17:42 ONCE, 1 [place] mg 00 :00 dose, On Medical [facility] Branch 04/30/22 at 1315, Routine diazePAM 2021-0 Yes 5mg 5 mg, Univers (VALIUM) 04-30 Oral, ity of tablet 5 mg 15:35: TIDPRN, [place] 27 Starting Medical on Thu Branch 04/30/22 at 1035, Until Discontinu ed, Routine, Anxiety HYDROcodone 2021-0 Yes 1{tbl} 1 tablet, Univers -acetaminop 04-30 Oral, ity of hen (NORCO 15:33: Q6HPRN, [place] 5) 5-325 mg 18 Starting Medi josé miguel tablet 1 on Thu Branch tablet 04/30/22 at 1033, Until Discontinu ed, Routine, Pain (scale 7-10) cholecalcif 2021-0 Yes 1000U 1,000 Univ ers mogran 04-30 Units, ity of (vitamin 14:00: Oral, [place] D3) tablet 00 DAILY, Medical 1,000 Units First dose Br anch on Thu04/30/22 at 0900, Until Discontinu ed, Routine zinc 2021-0 Yes 50mg 50 mg, Univers sulfate 04-30 Oral, ity of (ORAZINC) 14:00: DAILY, [place] capsule 50 00 First dose Med ical mg on Thu Branch 04/30/22 at 0900, Until Discontinu ed, Routine ascorbic 2021-0 Yes 500mg 500 mg, Unive rs acid 04-30 Oral, BID, ity of (vitamin C) 13:15: First dose [place] (VITAMIN C) 00 on Wed Medica l tablet 500 04/30/22 at [facility] mg 0815, Until Discontinu ed, Routine ipratropium 2022-0 Yes 3mL 3 mL, Unive rs -albuteroL 04-30 Inhalation ity of (DUONEB) 13:15: , Q4H, [place] 0.5 mg-3 00 First dose Medic al mg(2.5 mg on Wed Branch base)/3 mL 04/30/22 at nebulizer 0815, solution 3 Until mL Discontinu ed, Routine ALPRAZolam 2021-0 2021- No 1mg 1 mg, Unive rs (XANAX) 04-30 Oral, ity of tablet 1 mg 12:30: 12:17 ONCE, 1 [place] 00 :00 dose, On Medical Wed Branch 04/30/22 at 0730, MINDA ipratropium 2021-0 2021- No 3mL 3 mL, Univ ers -albuteroL 04-30 Inhalation it y of (DUONEB) 12:30: 11:47 , ONCE, 1 [place] as 0.5 mg-3 00 :00 dose, On Medical mg(2.5 mg Wed Branch base)/3 mL 04/30/22 at nebulizer 0730, solution 3 Routine mL methylpredn 2021-0 2021- No 125mg 125 mg, U nivers isolone sod 04-30 Intravenou i ty of succ 12:15: 11:27 s, ONCE, 1 [place] (SOLU-MEDRO 00 :00 dose, On Medi josé miguel L) Wed Branch injection 04/30/22 at 125 mg 0715, 2 mL ipratropium 2022-0 Yes 3mL 3 mL, Unive rs -albuteroL 04-24 Inhalation ity of (DUONEB) 01:00: , QID, [place] 0.5 mg-3 00 First dose Medic al mg(2.5 mg on Wed Branch base)/3 mL 04/23/22 at nebulizer 2000, solution 3 Until mL Discontinu ed, Routine methylpredn 2022-0 Yes 125mg 125 mg, Un nathen isolone sod 04-23 Intravenou it y of succ 23:00: s, Q6H, [place] (SOLU-MEDRO 00 First dose Me dical L) on Wed Branch injection 04/23/22 at 125 mg 1800, Until Discontinu ed, Routine LORazepam 2021- No 1mg 1 mg, Slow U nivers (ATIVAN) 04-23 IV Push, ity of injection 1 22:30: 22:40 ONCE, 1 [place] mg 00 :00 dose, On Medical Wed Branch 04/23/22 at 1730, STAT
Is the medication being used for status epilepticu s? No diazePAM 0 Yes [id number] 5mg Take 1 Uni vers (VALIUM) 5 5-13 tablet by ity of mg tablet 00:00: mouth [place] (three) Medical times Branch daily as needed for Anxiety. diazePAM 0 Yes [id number] 5mg Take 1 Uni vers (VALIUM) 5 5-13 tablet by ity of mg tablet 00:00: mouth [place] (three) Medical times Branch daily as needed for Anxiety. diazePAM 0 Yes [id number] 5mg Take 1 Uni vers (VALIUM) 5 5-13 tablet by ity of mg tablet 00:00: mouth [place] (three) Medical times Branch daily as needed for Anxiety. diazePAM 0 Yes [id number] 5mg Take 1 Uni vers (VALIUM) 5 5-13 tablet by ity of mg tablet 00:00: mouth [place] (three) Medical times Branch daily as needed for Anxiety. diazePAM 0 Yes [id number] 5mg Take 1 Uni vers (VALIUM) 5 5-13 tablet by ity of mg tablet 00:00: mouth [place] (three) Medical times Branch daily as needed for Anxiety. diazePAM 0 Yes [id number] 5mg Take 1 Uni vers (VALIUM) 5 5-13 tablet by ity of mg tablet 00:00: mouth [place] (three) Medical times Branch daily as needed for Anxiety. diazePAM 2021-0 Yes [id number] 5mg Take 1 Uni vers (VALIUM) 5 5-13 tablet by ity of mg tablet 00:00: mouth [place] (three) Medical times Branch daily as needed for Anxiety. diazePAM 0 Yes [id number] 5mg Take 1 Uni vers (VALIUM) 5 5-13 tablet by ity of mg tablet 00:00: mouth [place] (three) Medical times Branch daily as needed for Anxiety. diazePAM 2021-0 Yes [id number] 5mg Take 1 Uni vers (VALIUM) 5 5-13 tablet by ity of mg tablet 00:00: mouth 3 (three) Medical times Branch daily as needed for Anxiety. diazePAM 2021-0 Yes [id number] 5mg Take 1 Uni vers (VALIUM) 5 5-13 tablet by ity of mg tablet 00:00: mouth 3 (three) Medical times Branch daily as needed for Anxiety. diazePAM 2021-0 2021- No [id number] 5mg Take 1 Un nathen (VALIUM) 5 5-13 09-21 tablet by ity of mg tablet 00:00: 00:00 mouth 3 [place] 00 :[place] (three) Medical times Branch daily as needed for Anxiety. acetaZOLAMI 2021-0 Yes TAKE 1/2 Un nathen [place] 250 mg 3-02 TABLE BY ity of tablet 00:00: MOUTH 2 [place] TIMES A Medical DAY Branch acetaZOLAMI 2021-0 Yes TAKE 1/2 Un nathen [place] 250 mg 3-02 TABLE BY ity of tablet 00:00: MOUTH 2 [place] TIMES A Medical DAY Branch acetaZOLAMI 2021-0 Yes TAKE 1/2 Un nathen [place] 250 mg 3-02 TABLE BY ity of tablet 00:00: MOUTH 2 [place] TIMES A Medical DAY Branch acetaZOLAMI 2021-0 Yes TAKE 1/2 Un nathen [place] 250 mg 3-02 TABLE BY ity of tablet 00:00: MOUTH 2 [place] TIMES A Medical DAY Branch acetaZOLAMI 2021-0 Yes TAKE 1/2 Un nathen [place] 250 mg 3-02 TABLE BY ity of tablet 00:00: MOUTH 2 TIMES A Medical DAY Branch acetaZOLAMI 2021-0 Yes TAKE 1/2 Un nathen [place] 250 mg 3-02 TABLE BY ity of tablet 00:00: MOUTH 2 [place] TIMES A Medical DAY Branch acetaZOLAMI 2021-0 Yes TAKE 1/2 Un nathen [place] 250 mg 3-02 TABLE BY ity of tablet 00:00: MOUTH 2 [place] TIMES A Medical DAY Branch acetaZOLAMI 2021-0 Yes TAKE 1/2 Un nathen [place] 250 mg 3-02 TABLE BY ity of tablet 00:00: MOUTH 2 [place] TIMES A Medical DAY Branch acetaZOLAMI 2021-0 Yes TAKE 1/2 Un nathen [place] 250 mg 3-02 TABLE BY ity of tablet 00:00: MOUTH 2 [place] 00 TIMES A Medical DAY Branch acetaZOLAMI 2021-0 Yes TAKE 1/2 Un nathen [place] 250 mg 3-02 TABLE BY ity of tablet 00:00: MOUTH 2 [place] 00 TIMES A Medical DAY Branch acetaZOLAMI 2021-0 Yes TAKE 1/2 Un nathen [place] 250 mg 3-02 TABLE BY ity of tablet 00:00: MOUTH 2 [place] TIMES A Medical DAY Branch acetaZOLAMI 2021-0 Yes TAKE 1/2 Un nathen [place] 250 mg 3-02 TABLE BY ity of tablet 00:00: MOUTH 2 [place] 00 TIMES A Medical DAY Branch acetaZOLAMI 2021-0 Yes TAKE 1/2 Un nathen [place] 250 mg 3-02 TABLE BY ity of tablet 00:00: MOUTH 2 [place] TIMES A Medical DAY Branch AMLODIPINE 2021-0 Yes [id number] TAKE 1 Un nathen 5 mg tablet 2-14 TABLET BY ity of 00:00: [facility] EVERY DAY Medical Branch AMLODIPINE 2021-0 Yes [id number] TAKE 1 Un nathen 5 mg tablet 2-14 TABLET BY ity of 00:00: [facility] EVERY DAY Medical Branch AMLODIPINE 2-0 Yes [id number] TAKE 1 Un nathen 5 mg tablet 2-14 TABLET BY ity of 00:00: [facility] EVERY DAY Medical Branch AMLODIPINE 2-0 Yes [id number] TAKE 1 Un nathen 5 mg tablet 2-14 TABLET BY ity of 00:00: [facility] EVERY DAY Medical Branch AMLODIPINE 2-0 Yes [id number] TAKE 1 Un nathen 5 mg tablet 2-14 TABLET BY ity of 00:00: [facility] EVERY DAY Medical Branch AMLODIPINE 2-0 Yes [id number] TAKE 1 Un nathen 5 mg tablet 2-14 TABLET BY ity of 00:00: [facility] EVERY DAY Medical Branch AMLODIPINE 2-0 Yes [id number] TAKE 1 Un nathen 5 mg tablet 2-14 TABLET BY ity of 00:00: [facility] EVERY DAY Medical Branch AMLODIPINE 2-0 Yes [id number] TAKE 1 Un nathen 5 mg tablet 2-14 TABLET BY ity of 00:00: [facility] EVERY DAY Medical Branch AMLODIPINE 2022-0 Yes [id number] TAKE 1 Un nathen 5 mg tablet 2-14 TABLET BY ity of 00:00: MOUTH EVERY DAY Medical Branch AMLODIPINE 2021-0 Yes [id number] TAKE 1 Un nathen 5 mg tablet 2-14 TABLET BY ity of 00:00: MOUTH EVERY DAY Medical Branch AMLODIPINE 2021-0 Yes [id number] TAKE 1 Un nathen 5 mg tablet 2-14 TABLET BY ity of 00:00: MOUTH [place] EVERY DAY Medical Branch AMLODIPINE 2021-0 Yes [id number] TAKE 1 Un nathen 5 mg tablet 2-14 TABLET BY ity of 00:00: MOUTH EVERY DAY Medical Branch AMLODIPINE 0 Yes [id number] TAKE 1 Un nathen 5 mg tablet 2-14 TABLET BY ity of 00:00: MOUTH [place] EVERY DAY Medical Branch diazePAM 2020-08- No [id number] 5mg Take 1 Un nathen (VALIUM) 5 [...] Medical unit CpDR Branch pantoprazol 2020-08 Yes [id number] 40mg Take 1 Univers e 40 mg EC 0-04 tablet by ity of tablet 00:00: mouth [place] 00 daily. Medical Branch pantoprazol 2020-08 Yes [id number] 40mg Take 1 Univers e 40 mg EC 0-04 tablet by ity of tablet 00:00: mouth [place] 00 daily. Medical Branch pantoprazol 2020-08 Yes [id number] 40mg Take 1 Univers e 40 mg EC 0-04 tablet by ity of tablet 00:00: mouth [place] 00 daily. Medical Branch pantoprazol 2020-08 Yes [id number] 40mg Take 1 Univers e 40 mg EC 0-04 tablet by ity of tablet 00:00: mouth [place] 00 daily. Medical Branch pantoprazol 2020-08 Yes [id number] 40mg Take 1 Univers e 40 mg EC 0-04 tablet by ity of tablet 00:00: mouth [place] 00 daily. Medical Branch pantoprazol 2020-08 Yes [id number] 40mg Take 1 Univers e 40 mg EC 0-04 tablet by ity of tablet 00:00: mouth [place] 00 daily. Medical Branch pantoprazol 2020-08 Yes [id number] 40mg Take 1 Univers e 40 mg EC 0-04 tablet by ity of tablet 00:00: mouth [place] 00 daily. Medical Branch pantoprazol 2020-08 Yes [id number] 40mg Take 1 Univers e 40 mg EC 0-04 tablet by ity of tablet 00:00: mouth [place] 00 daily. Medical Branch pantoprazol 2020-08 Yes [id number] 40mg Take 1 Univers e 40 mg EC 0-04 tablet by ity of tablet 00:00: mouth [place] 00 daily. Medical Branch pantoprazol 2020-08 Yes [id number] 40mg Take 1 Univers e 40 mg EC 0-04 tablet by ity of tablet 00:00: mouth [place] 00 daily. Medical Branch pantoprazol 2020-08 Yes [id number] 40mg Take 1 Univers e 40 mg EC 0-04 tablet by ity of tablet 00:00: mouth [place] 00 daily. Medical Branch pantoprazol 2020-08 Yes [id number] 40mg Take 1 Univers e 40 mg EC 0-04 tablet by ity of tablet 00:00: mouth [place] 00 daily. Medical Branch pantoprazol 2020-08 Yes [id number] 40mg Take 1 Univers e 40 mg EC 0-04 tablet by ity of tablet 00:00: mouth [place] 00 daily. [facility] predniSONE 2020-0 Yes 5mg Take 5 mg Un nathen 5 mg tablet 4-13 by mouth. ity of 14:13: [address] predniSONE 2020-0 Yes 5mg Take 5 mg Un nathen 5 mg tablet 4-13 by mouth. ity of 14:13: [address] predniSONE 2020-0 Yes 5mg Take 5 mg Un nathen 5 mg tablet 4-13 by mouth. ity of 14:13: [address] predniSONE 2020-0 Yes 5mg Take 5 mg Un nathen 5 mg tablet 4-13 by mouth. ity of 14:13: [address] predniSONE 2020-0 Yes 5mg Take 5 mg Un nathen 5 mg tablet 4-13 by mouth. ity of 14:13: [address] predniSONE 2020-0 Yes 5mg Take 5 mg Un nathen 5 mg tablet 4-13 by mouth. ity of 14:13: [address] predniSONE 2020-0 Yes 5mg Take 5 mg Un nathen 5 mg tablet 4-13 by mouth. ity of 14:13: [address] predniSONE 2021-0 Yes 5mg Take 5 mg Un nathen 5 mg tablet 4-13 by mouth. ity of 14:13: [address] Branch HYDROcodone Yes 1{tbl} Take 1 Un nathen -acetaminop 3-12 tablet by ity of hen 7.5-325 14:37: mouth 3 Shawn as mg per 07 (three) Medical tablet times Branch daily. OXYGEN-AIR Yes by Univers DELIVERY 3-12 Miscellane ity o f SYSTEMS 14:37: ous route. Tripp morgan [address] HYDROcodone Yes 1{tbl} Take 1 Un nathen -acetaminop 3-12 tablet by ity of hen 7.5-325 14:37: mouth 3 Shawn as mg per 07 (three) Medical tablet times Branch daily. OXYGEN-AIR Yes by Univers DELIVERY 3-12 Miscellane ity o f SYSTEMS 14:37: ous route. Tripp morgan [address] HYDROcodone Yes 1{tbl} Take 1 Un nathen -acetaminop 3-12 tablet by ity of hen 7.5-325 14:37: mouth 3 Shawn as mg per 07 (three) Medical tablet times Branch daily. OXYGEN-AIR Yes by Univers DELIVERY 3-12 Miscellane ity o f SYSTEMS 14:37: ous route. Tripp morgan [address] HYDROcodone Yes 1{tbl} Take 1 Un nathen -acetaminop 3-12 tablet by ity of hen 7.5-325 14:37: mouth 3 Shawn as mg per 07 (three) Medical tablet times Branch daily. OXYGEN-AIR Yes by Univers DELIVERY 3-12 Miscellane ity o f SYSTEMS 14:37: ous route. Tripp morgan [address] HYDROcodone Yes 1{tbl} Take 1 Un nathen -acetaminop 3-12 tablet by ity of hen 7.5-325 14:37: mouth 3 Shawn as mg per 07 (three) Medical tablet times Branch daily. OXYGEN-AIR Yes by Univers DELIVERY 3-12 Miscellane ity o f SYSTEMS 14:37: ous route. Tripp [address] HYDROcodone Yes 1{tbl} Take 1 Un nathen -acetaminop 3-12 tablet by ity of hen 7.5-325 14:37: mouth 3 Shawn as mg per 07 (three) Medical tablet times Branch daily. OXYGEN-AIR Yes by Univers DELIVERY 3-12 Miscellane ity o f SYSTEMS 14:37: ous route. Tripp morgan [place] [address] Medical Branch HYDROcodone Yes 1{tbl} Take 1 Un nathen -acetaminop 3-12 tablet by ity of hen 7.5-325 14:37: mouth 3 Shanw as mg per 07 (three) Medical tablet times Branch daily. OXYGEN-AIR Yes by Univers DELIVERY 3-12 Miscellane ity o f SYSTEMS 14:37: ous route. Tripp morgan [place] [address] Medical Branch HYDROcodone Yes 1{tbl} Take 1 Un nathen -acetaminop 3-12 tablet by ity of hen 7.5-325 14:37: mouth 3 Shawn as mg per 07 (three) Medical tablet times Branch daily. OXYGEN-AIR Yes by Univers DELIVERY 3-12 Miscellane ity o f SYSTEMS 14:37: ous route. Tripp morgan [place] [address] Medical Branch SPIRIVA Yes INHALE 2 Univer [...] 4-30 by mouth [facility] tablet 10:34: daily. [address] ALPRAZolam Yes .5mg Take 0.[address] [facility] (XANAX) 0.5 4-30 mg by [facility] MG tablet 10:34: mouth 3 Medic al 04 (three) Center times daily as needed for Anxiety. albuterol 2019 Yes 2.5mg Take 2.[address] [facility] (PROVENTIL) 4-30 mg by [facility] 2.5 mg/0.5 10:34: nebulizati M edical mL Nebu 04 on every 6 Center nebulizer (six) solution hours as needed. predniSONE 2019 Yes 5mg QD Take [address] (DELTASONE) 4-30 by mouth Luke s 5 MG tablet 10:34: daily. Medi josé [...] Cent er capsule (two) times daily. HYDROcodone 0 Yes 1{tbl} Take [address] -acetaminop 4-30 tablet by Cat valladares (NORCO 10:34: mouth Medica l 7.5-325) 04 every 8 Center 7.5-325 mg (eight) per tablet hours as needed for Pain. buprenorphi 2019 Yes 1{patch Place [address] [facility] ne 4-30 } patch onto [facility] (BUTRANS) 10:34: the skin Medi josé miguel 10 mcg/hour 04 every 7 Cente r PTWK days. lactulose 0 Yes 20g Take [address] [facility] (CHRONULAC) 4-30 by mouth Luke s 10 gram/15 10:34: daily as Med ical mL (15 mL) 04 needed. Center solution docusate 0 Yes 200mg Take 200 [...] Luke s MG tablet 10:34: daily as [facility] josé miguel 04 needed for Center Allergies. promethazin 0 Yes 5mL Take [address] e-codeine 4-30 by mouth [facility] (PHENERGAN 10:34: every 4 [facility] WITH 04 (four) Center CODEINE) hours as 6.25-10 needed for mg/5 mL Cough. syrup gabapentin 2018-0 Yes 100mg QD Take [address] (NEURONTIN) 4-30 mg by [facility] 100 MG 10:34: mouth Medical capsule 04 daily. [place] OXYGEN-AIR [address] [facility] DELIVERY 4-30 [facility]ane [facility] SYSTEMS 10:34: ous route. [facility] MIS 04 Center aspirin 81 2019-0 Yes 81mg QD Take [address] MG EC 4-30 by mouth [facility] tablet 10:34: daily. [facility] 04 [place] ALPRAZolam 0 Yes .5mg Take 0.[address] [facility] (XANAX) 0.5 4-30 mg by [facility] MG tablet 10:34: mouth 3 Medic al 04 (three) Center times daily as needed for Anxiety. albuterol 0 Yes 2.5mg Take 2.[address] [facility] [facility] (PROVENTIL) 4-30 mg by [facility] 2.5 mg/0.5 10:34: nebulizati M edical mL Nebu 04 on every 6 Center nebulizer (six) solution hours as needed. predniSONE 2018-0 Yes 5mg QD Take [address] (DELTASONE) 4-30 by mouth Luke s 5 MG tablet 10:34: daily. [facility] 04 Center budesonide- 2018-0 Yes 2{puff} Q.5D Inhale [address] [facility] formoterol 4-30 puffs by [facility] (SYMBICORT) 10:34: mouth via M edical 160-4.5 04 inhaler 2 Center mcg/actuati (two) on inhaler times daily. amLODIPine 2019- Yes 5mg QD Take [address] (NORVASC) 5 4-30 by mouth Luke s MG tablet 10:34: daily. Medica l [address] [place] [address] aspirin 81 2019-0 Yes 81mg QD Take [address] MG EC 4-30 by mouth [facility] tablet 10:34: daily. Medical [address] [place] [address] ALPRAZolam 2019- Yes .5mg Take 0.[address] [facility] [address] (XANAX) 0.5 4-30 mg by [facility] MG tablet 10:34: mouth 3 Medic al 04 (three) Center times daily as needed for Anxiety. tiotropium Yes 18ug Q.5D Inhale [address] (SPIRIVA) 4-30 mcg by [facility]ukes 18 mcg 10:34: mouth via Medica l inhalation 04 inhaler 2 Cent er capsule (two) times daily. albuterol Yes 2.5mg Take 2.[address] [facility] (PROVENTIL) 4-30 mg by [facility]ukes 2.5 mg/0.5 10:34: nebulizati M edical mL Nebu 04 on every 6 Center nebulizer (six) solution hours as needed. predniSONE Yes 5mg QD Take [address] (DELTASONE) 4-30 by mouth Luke s 5 MG tablet 10:34: daily. [facility] josé miguel [address] [place] [address] budesonide- 0 Yes 2{puff} Q.5D Inhale [address] formoterol 4-30 puffs by [facility] (SYMBICORT) 10:34: mouth via M edical 160-4.5 04 inhaler 2 Center mcg/actuati (two) on inhaler times daily. amLODIPine 20190 Yes 5mg QD Take [address] (NORVASC) 5 4-30 by mouth Luke s MG tablet 10:34: daily. Medica l [address] [place] [address] tiotropium 2018-0 Yes 18ug Q.5D Inhale [address] (SPIRIVA) 4-30 mcg by [facility] 18 mcg 10:34: mouth via Medica l inhalation 04 inhaler 2 Cent er capsule (two) times daily. HYDROcodone 2018-0 Yes 1{tbl} Take [address] -acetaminop 4-30 tablet by Cat es hen (NORCO 10:34: mouth Medica l 7.5-325) 04 every 8 Center 7.5-325 mg (eight) per tablet hours as needed for Pain. buprenorphi 2019- Yes 1{patch Place [address] [facility] ne [...] al 20 MG 04 Center tablet cetirizine 0 Yes 10mg Take 10 mg C HI [...] route. Medi josé miguel MISC 04 Center HYDROcodone 2019-0 Yes 1{tbl} Take [address] -acetaminop 4-30 tablet by Cat es hen (NORCO 10:34: mouth Medica l 7.5-325) [...] (15 mL) 04 needed. Center solution docusate 2019- Yes 200mg Take [address] sodium [...] al 20 MG 04 Center tablet cetirizine 0 Yes 10mg Take [address] (ZYRTEC) 10 4-30 by mouth Luke s MG tablet 10:34: daily as Medi josé miguel 04 needed for Center Allergies. promethazin 2018- Yes 5mL Take [address] [facility] [...] Guido 1 patch to Common skin [facility] Lactulose Lactulose Yes Na Guido 15 ml C ommon [facility] Lopressor Lopressor Yes Na Guido 1 tablet Common with food [facility] Spiriva Spiriva Yes Na Ugido 2 puffs Com mon Respimat Respimat [facility] Aspirin 81 Aspirin 81 Yes Na Guido 1 tablet Common [facility] Zyrtec Zyrtec Yes Na Guido 1 tablet Comm on Allergy Allergy [facility] [place] Yes Na Guido 1 tablet Common as needed [facility] Albuterol-I Albuterol-I Yes Na Guido not Common pratropium pratropium defined [facility] Alprazolam Alprazolam Yes Na Guido 1 tablet Common [facility] Symbicort Symbicort Yes Na Guido 2 puffs Common [facility] Norvasc Norvasc Yes Na Guido 1 tablet Co mmon [facility] Protonix Protonix Yes Na Guido 1/2 tablet [facility] PredniSONE PredniSONE Yes Na Guido 1 tablet [facility] Combivent Combivent Yes Na Guido not Co mmon defined [facility] Butrans 10 Butrans 10 No 1{patch Butrans 10 MCG/HR MCG/HR _to_ski MCG/HR n} Alprazolam Alprazolam No 1{table BID Alprazolam 0.5 MG 0.5 MG t} 0.5 MG Lopressor Lopressor No 1{table BID Lopressor 100 MG 100 MG t_with_ 100 MG food} PredniSONE PredniSONE No 1{table QD PredniSONE 10 MG 10 MG t} 10 MG Combivent Combivent No Combivent Aspirin 81 Aspirin 81 No 1{table QD Aspirin 81 81 MG 81 MG t} 81 MG Lactulose Lactulose No 15{ml} QD Lactulose 10 GM/15ML 10 GM/15ML 10 GM/15ML Albuterol-I Albuterol-I No Albuterol- pratropium pratropium Ipratropiu 2.5-0.5mg/3 2.5-0.5mg/3 m ml ml 2.5-0.5mg/ 3ml Norvasc 5 Norvasc 5 No 1{table QD Norvasc 5 MG MG t} MG [place] No 1{table QID [place] 7.5-325 MG 7.5-325 MG t_as_ne 7.5-325 MG eded} Zyrtec Zyrtec No 1{table QD Zyrtec Allergy 10 Allergy 10 t} Allergy 10 MG MG MG Symbicort Symbicort No 2{puffs BID Symbicort 160-4.5 160-4.5 } 160-4.5 MCG/ACT MCG/ACT MCG/ACT Spiriva Spiriva No 2{puffs QD Spiriva Respimat Respimat } Respimat 2.5 2.5 2.5 microgram microgram microgram Protonix 20 Protonix 20 No QD Protonix MG MG 20 MG Immunizations Ordered Filled Immunization Date Status Comments Sour e Immunization Name Name [facility] 2022-05-04 Completed University of 00:00:00 [facility] Remdesivir 2022-05-04 Completed University of 00:00:00 [facility] Remdesivir 2022-05-04 Completed University of 00:00:00 [facility] Remdesivir 2022-05-04 Completed University of 00:00:00 [facility] Remdesivir 2022-05-04 Completed University of 00:00:00 [facility] Remdesivir 2022-05-03 Completed University of 00:00:00 [facility] Remdesivir 2022-05-03 Completed University of 00:00:00 [facility] Remdesivir 2022-05-03 Completed University of 00:00:00 [facility] Remdesivir 2022-05-03 Completed University of 00:00:00 [facility] Remdesivir 2022-05-03 Completed University of 00:00:00 [facility] Remdesivir 2022-05-02 Completed University of 00:00:00 [facility] Remdesivir 2022-05-02 Completed University of 00:00:00 [facility] Remdesivir 2022-05-02 Completed University of 00:00:00 [facility] Remdesivir 2022-05-02 Completed University of 00:00:00 [facility] Remdesivir 2022-05-02 Completed University of 00:00:00 [facility] Remdesivir 2022-05-01 Completed University of 00:00:00 [facility] Remdesivir 2022-05-01 Completed University of 00:00:00 [place] [facility] Remdesivir 2022-05-01 Completed University of 00:00:00 [place] [facility] Remdesivir 2022-05-01 Completed University of 00:00:00 [place] [facility] Remdesivir 2022-05-01 Completed University of 00:00:00 [place] [facility] Remdesivir 2022-04-30 Completed University of 00:00:00 [place] [facility] Remdesivir 2022-04-30 Completed University of 00:00:00 [place] [facility] Remdesivir 2022-04-30 Completed University of 00:00:00 [place] [facility] Remdesivir 2022-04-30 Completed University of 00:00:00 [place] [facility] Remdesivir 2022-04-30 Completed University of 00:00:00 [facility] Branch SARS-COV-2 COVID-19 2021-08-30 Completed Unive rsity [...] Completed Unive rsity of MODERNA 0.25ML 00:00:00 [place] Medi josé miguel BOOSTER VACCINE Branch SARS-COV-2 [...] Completed Unive rsity of MODERNA 0.25ML 00:00:00 [facility] josé miguel BOOSTER VACCINE Branch Kenalog Kenalog 2018-11-08 Completed [facility] - (Triamcinolone) (Triamcinolone) 13:04:00 [facility] Vital Signs Vital Name Observation Time Observation Value Comments Source Systolic blood 2022-05-21 19:06:00 159 mm[Hg] Univer sity of pressure [place] [facility] Diastolic blood 2022-05-21 19:06:00 73 mm[Hg] Unive rsity of pressure [facility] Heart rate 2022-05-21 19:05:00 109 /min General acute hospital Body temperature 2022-05-21 19:05:00 [facility].5 [facility] 2022-05-21 19:05:00 154.9 cm General acute hospital Body weight 2022-05-21 19:05:00 63.05 kg General acute hospital BMI 2022-05-21 19:05:00 26.26 kg/m2 General acute hospital Oxygen saturation in 2022-05-21 19:05:00 96 /min University of Arterial blood by [facility] Pulse oximetry Branch Heart rate 2022-05-04 20:35:00 107 /min General acute hospital Respiratory rate 2022-05-04 20:35:00 18 /min Univ ersity [facility] Oxygen saturation in 2022-05-04 20:35:00 99 /min University of Arterial blood by [facility] Pulse oximetry Branch Systolic blood 2022-05-04 17:00:00 121 mm[Hg] Univer sity of pressure [place] [facility] Diastolic blood 2022-05-04 17:00:00 75 mm[Hg] Unive rsity of pressure [facility] Body temperature 2022-05-04 17:00:00 36.5 Odalys Univ ersity of [place] [facility] Body weight 2022-05-04 10:05:00 65.499 kg Universi ty of [facility] BMI 2022-05-04 10:05:00 27.28 kg/m2 Universi ty of [facility] Body height 2022-04-30 13:07:00 154.9 cm Universi ty of [facility] Heart rate 2022-04-23 22:58:00 104 /min Universi ty of [facility] Respiratory rate 2022-04-23 22:58:00 18 /min Univ ersity of [facility] Oxygen saturation in 2022-04-23 22:58:00 100 /min University Arterial blood by [facility] Pulse oximetry Branch Systolic blood 2022-04-23 22:26:00 130 mm[Hg] Univer sity of [facility] Diastolic blood 2022-04-23 22:26:00 81 mm[Hg] Unive rsity of [facility] Body temperature 2022-04-23 22:26:00 37.22 Odalys Univ ersity of [facility] Body height 2022-04-23 22:26:00 154.9 cm Universi ty of [place] [facility] Body weight 2022-04-23 22:26:00 64.411 kg Universi ty of [place] [facility] BMI 2022-04-23 22:26:00 26.83 kg/m2 Universi ty of [facility] Branch Systolic blood 2022-01-10 18:39:00 164 mm[Hg] Univer sity of pressure [facility] Branch Diastolic blood 2022-01-10 18:39:00 82 mm[Hg] Unive rsity of [facility] Heart rate 2022-01-10 18:38:00 108 /min Universi ty of [facility] Body temperature 2022-01-10 18:38:00 37.33 Odalys Univ ersity of [facility] Body height 2022-01-10 18:38:00 154.9 cm Universi ty of [place] [facility] Body weight 2022-01-10 18:38:00 65.318 kg General acute hospital BMI 2022-01-10 18:38:00 27.21 kg/m2 General acute hospital Oxygen saturation in 2022-01-10 18:38:00 95 /min University Arterial blood by [facility] Pulse oximetry Branch Procedures Procedure Date / Time Performing Clinician Source Performed MAGNESIUM 2022-05-04 10:03:00 Gil [facility] BASIC METABOLIC PANEL 2022-05-04 10:03:00 Gil [facility] (NA, K, CL, CO2, GLUCOSE, Medica l Branch BUN, CREATININE, CA) ACUTE CARE VENOUS BLOOD 2022-05-04 10:03:00 Gil [facility] ACUTE CARE VENOUS BLOOD 2022-05-03 15:18:00 Gil [facility] MAGNESIUM 2022-05-03 15:14:00 Gil [facility] BASIC METABOLIC PANEL 2022-05-03 15:14:00 Gil [facility] (NA, K, CL, CO2, GLUCOSE, Medica l Branch BUN, CREATININE, CA) MAGNESIUM 2022-05-02 09:31:00 [facility] BASIC METABOLIC PANEL 2022-05-02 09:31:00 Prakash Berg [facility] (NA, K, CL, CO2, GLUCOSE, Medica l Branch BUN, CREATININE, CA) CBC WITH DIFF 2022-05-02 09:31:00 Prakash Berg [facility] ACUTE CARE VENOUS BLOOD 2022-05-02 09:28:00 Deedee [facility] MAGNESIUM 2022-05-01 09:20:00 [facility] BASIC METABOLIC PANEL 2022-05-01 09:20:00 Prakash Berg [facility] (NA, K, CL, CO2, GLUCOSE, Medica l Branch BUN, CREATININE, CA) ACUTE CARE VENOUS BLOOD 2022-05-01 09:20:00 Deedee [facility] CBC WITH DIFF 2022-05-01 09:20:00 Prakash Berg [facility] MRSA / MSSA SCREEN BY 2022-04-30 22:35:00 Jayden Cordero [facility] PCR, NARES [facility] ACUTE CARE ARTERIAL BLOOD 2022-04-30 21:28:00 Prakash Berg [facility] ACUTE CARE ARTERIAL BLOOD 2022-04-30 15:47:00 Prakash Berg [facility] COVID-19 (ID NOW RAPID 2022-04-30 11:56:00 Mariposa Craig [facility] TESTING) Medical Branch LAB ONLY COVID 2022-04-30 11:56:00 Mariposa Craig [facility] CRITICAL CARE 2022-04-30 11:54:13 Mariposa Craig [facility] ACUTE CARE ARTERIAL BLOOD 2022-04-30 11:35:00 Mariposa Craig [facility] XR CHEST 1 VW 2022-04-30 10:37:04 Mariposa Craig [facility] TROPONIN I 2022-04-30 10:13:00 Mariposa Craig [facility] BASIC METABOLIC PANEL 2022-04-30 10:13:00 Mariposa Craig [facility] (NA, K, CL, CO2, GLUCOSE, Medica l Branch BUN, CREATININE, CA) CBC WITH DIFF 2022-04-30 10:13:00 Mariposa Craig [facility] HB ECG ROUTINE & RHYTHM 2022-04-30 09:46:40 Mariposa Craig [facility] EMERGENCY DEPARTMENT 2022-04-30 05:01:00 Doctor Unassigned, [facility] DOCUMENTS [place] [facility] TROPONIN I 2022-04-23 22:38:00 Singer [facility] COMP. METABOLIC PANEL 2022-04-23 22:38:00 Jeff Sampson [facility] ([id number]) Medical Branch CBC WITH DIFF 2022-04-23 22:38:00 Singer [facility] N-TERMINAL PRO-BNP 2022-04-23 22:38:00 Jeff Sampson [facility] Medical Branch HOME HEALTH - OTHER 2022-02-11 05:01:00 [facility] [place] [facility] [place] [facility] OTHER 2022-02-07 05:01:00 Doctor Marcia [place] [facility] Name [facility] Branch [facility] - OTHER 2022-02-03 05:01:00 Doctor [facility]cia [place] [facility] Name [facility] Branch [facility] - OTHER 2022-01-17 05:01:00 Doctor PaolassMarcia klein [facility] Name [facility] Branch [facility] - OTHER 2021-12-29 05:01:00 Doctor Marcia [place] [facility] Name [facility] Branch [facility] - OTHER 2021-12-20 05:01:00 Doctor Marcia [place] [facility] Name [facility] Plan of Care Planned Activity Planned Date Details Comments Source Future Scheduled 2020-05-[address] [facility] Test 00:00:00 (#1) [code = [facility] INFLUENZA VACCINE (#1)] Future Scheduled [address] [facility] Test 00:00:00 (procedure) [code = [facility] [id number]] Future Scheduled [address] [facility] Test 00:00:00 malignant neoplasm Medical C enter of cervix (procedure) [code = 781997377] Future Scheduled [address] [facility] Test 00:00:00 malignant neoplasm Medical C enter of colon (procedure) [code = 987880698] Future Scheduled [address] [facility] Test 00:00:00 malignant neoplasm Medical C enter of breast (procedure) [code = 280712355] Encounters Start End Encounter Admission Attending Care Care Encounter Source Date/Time Date/Time Type Type Clinicians Facility Department ID 2021-09-25 Outpatient Chantel Guido [facility] [id number] 2 Common 11:46:50 [id number] [facility] 2021-09-25 Outpatient Chantel Guido [facility] [id number] 2 Common 11:44:44 [id number] [facility] 2022-06-18 2022-06-18 Outpatient R SHARIFTANMAY [facility] [id number] Univers 13:30:00 13:30:00 DAMIAN [facility] 2022-05-21 2022-05-21 Office Conchitajuan [facility] 1.2.840.114 [id number] Univers 14:30:00 15:00:00 Visit [facility] 350.1.13.10 it y of [place] 4.2.7.2.686 Shawn as MICAH?BLEA [phone] [address] MEDICAL OFFICE BUILDING 2022-05-21 2022-05-21 [facility] [id number] Univers 14:30:00 14:30:00 DAMIAN [facility] 2022-05-19 2022-05-19 [facility] [id number] Univers 14:30:00 14:30:00 DAMIAN [facility] 2022-05-07 2022-05-07 Transition RADHA Loving 1.2.840.114 [id number] Univers 00:00:00 00:00:00 of Care Harry ANDERSON 350.1.13.10 ity [place] 4.2.7.2.[address] [facility] [phone] [facility] [address] 2022-04-30 2022-05-04 Inpatient X FRANCOIS [facility] [id number] Univers 04:39:00 16:30:00 [facility] 2022-04-30 2022-05-04 [facility] Mariposa Craig [facility] 1.2.840.11 [id number] Univers 04:39:00 16:30:00 Encounter Jayden Cordero 350.1.13.10 ity abebe [place]ER[place] 4.2.7.2.686 [facility] [id number] [facility] [address] 2022-04-23 2022-04-23 Emergency X SINGER OKTAMARA [facility] [id number] Univers 17:28:00 19:04:00 JEFF brooks [facility] 2022-04-23 2022-04-23 Emergency [facility] 1.2.636.953 [id number] Univers 17:28:00 19:04:00 Jeff QI 350.1.13.10 i ty of [place] 4.2.7.2.686 [place] [facility] [phone] [facility] [address] 2022-02-11 2022-02-11 Orders Doctor DONNA 1.2.840.114 [id number] Univers 00:00:00 00:00:00 Only Unassigned, JONATHAN 350.1.13.10 ity of [place] [facility] 4.2.7.2.686 Shawn as [phone] [facility] [address] 2022-02-07 2022-02-07 Orders Doctor DONNA 1.2.840.114 [id number] Univers 00:00:00 00:00:00 Only Unassigned, JONATHAN 350.1.13.10 ity of [place] [facility] 4.2.7.2.686 Shawn as [phone] [facility] [address] 2022-02-03 2022-02-03 Orders Doctor THOMPSON 1.2.840.114 [id number] Univers 00:00:00 00:00:00 Only Unassigned, JONATHAN 350.1.13.10 ity of [place] [facility] 4.2.7.2.686 Shawn as [phone] [address] 2022-01-17 2022-01-17 Orders Doctor THOMPSON 1.2.840.114 [id number] Univers 00:00:00 00:00:00 Only Unassigned, JONATHAN 350.1.13.10 ity of [place] [facility] 4.2.7.2.686 Shawn as [phone] [address] 2022-01-10 2022-01-10 Outpatient R WENCESLAO [facility] [id number] Univers 13:00:00 13:55:59 DAMIAN brooks of [facility] 2022-01-10 2022-01-10 Office Wenceslao [facility] 1.2.840.114 [id number] Univers 13:00:00 13:15:00 Visit [facility] 350.1.13.10 it y of [place] 4.2.7.2.686 Shawn as MICAH?BLEA [phone] Dc brandon [address] MEDICAL OFFICE [facility] 2022-01-10 2022-01-10 [facility] [id number] Univers 13:00:00 13:00:00 DAMIAN [facility] 2021-12-29 2021-12-29 Orders Doctor DONNA 1.2.840.114 [id number] Univers 00:00:00 00:00:00 Only Unassigned, JONATHAN 350.1.13.10 ity of [place] [facility] 4.2.7.2.686 Shawn as [phone] [address] 2021-12-20 2021-12-20 Orders Doctor DONNA 1.2.840.114 [id number] Univers 00:00:00 00:00:00 Only Unassigned, JONATHAN 350.1.13.10 ity of [place] [facility] 4.2.7.2.686 Shawn as [phone] [address] 2021-12-11 2021-12-11 Out[facility] [id number] Univers 11:00:00 11:51:30 DAMIAN [facility] 2021-12-11 2021-12-11 [facility] 1.2.840.114 [id number] Univers 11:00:00 11:15:00 Visit [facility] 350.1.13.10 it y of [place] 4.2.7.2.686 Shawn as MICAH?BLEA [phone] Dc brandon [address] OFFICE [facility] 2021-12-11 2021-12-11 [facility] [id number] Univers 11:00:00 11:00:00 DAMIAN [facility] 2021-12-05 2021-12-05 Telephone [facility] 1.2.840.114 [id number] Univers 00:00:00 00:00:00 [facility] 350.1.13.10 it y of [place] 4.2.7.2.686 Shawn as MICAH?BLEA [phone] Dc brandon [address] MEDICAL OFFICE [facility] 2021-10-14 2021-10-14 [facility] 1.2.840.114 [id number] Univers 00:00:00 00:00:00 [facility] 350.1.13.10 it y of [place] 4.2.7.2.686 Shawn as PROFESSIO [phone] [address] ONE 2021-09-11 2021-09-11 Orders Doctor DONNA 1.2.840.114 [id number] Univers 00:00:00 00:00:00 Only Unassigned, JONATHAN 350.1.13.10 ity [facility] [facility] 4.2.7.2.686 Shawn as [phone] [address] 2021-09-03 2021-09-03 [facility] 1.2.840.114 [id number] Univers 00:00:00 00:00:00 [facility] 350.1.13.10 it y of [place] 4.2.7.2.686 Shawn as PROFESSIO [phone] [address] ONE 2021-08-30 2021-08-30 Outpatient [facility] [id number] Univers 13:00:00 13:52:57 [facility] 2021-08-30 2021-08-30 Office [facility] 1.2.840.114 [id number] Univers 13:00:00 13:15:00 Visit [facility] 350.1.13.10 it y of [place] 4.2.7.2.686 Shawn as MICAH?BLEA [phone] [address] 2021-08-30 2021-08-30 Outpatient [facility] [id number] Univers 13:00:00 13:00:00 [facility] 2021-08-28 2021-08-28 Outpatient Matthew BILLY [facility] [id number] Univers 15:30:00 15:30:00 DAMIAN [facility] 2021-08-28 2021-08-28 Outpatient [facility] [id number] Univers 15:30:00 15:30:00 DAMIAN brooks [facility] 2021-08-28 2021-08-28 Outpatient R WENCESLAO [facility] [id number] Univers 15:30:00 15:30:00 DAMIAN cristela [facility] 2021-08-28 2021-08-28 Outpatient R WENCESLAO [facility] [id number] Univers 15:30:00 15:30:00 DAMIAN cristela [facility] 2021-08-26 2021-08-26 Telephone [facility] .2.840.114 [id number] Univers 00:00:00 00:00:00 [facility] 350.1.13.10 it y of [place] 4.2.7.2.686 Shawn as MICAH?BLEA [phone] [address] MEDICAL OFFICE BUILDING 2021-07-30 2021-07-30 Outpatient R ZIGGY MEJIA [facility] [id number] Univers 13:30:00 13:30:00 ZIGGY MEJIA cristela [facility] 2021-07-30 2021-07-30 Outpatient R ZIGGY MEJIA [facility] [id number] Univers 13:30:00 13:30:00 ZIGGY MEJIA cristela [facility] 2021-07-30 2021-07-30 Outpatient R ZIGGY MEJIA [facility] [id number] Univers 13:30:00 13:30:00 ZIGGY MEJIA cristela [facility] 2021-07-30 2021-07-30 Outpatient R ZIGGY MEJIA [facility] [id number] Univers 13:30:00 13:30:00 ZIGGY MEJIA cristela [facility] 2021-07-18 2021-07-18 Outpatient R IZZY TSAI [facility] [id number] Univers 10:00:00 10:00:00 [facility] 2021-07-15 2021-07-15 Refill [facility] 1.2.840.114 [id number] Univers 00:00:00 00:00:00 [facility] 350.1.13.10 it y of [place] 4.2.7.2.686 Shawn as MICAH?BLEA [phone] Dc brandon MILLARD [address] [place] [address] OFFICE [facility] 2021-07-10 2021-07-10 Telephone [facility] 1.2.840.114 [id number] Univers 00:00:00 00:00:00 [facility] 350.1.13.10 it y of [place] 4.2.7.2.686 Shawn as MICAH?BLEA [phone] Dc brandon MILLARD [address] [place] [address] OFFICE [facility] 2021-07-09 2021-07-09 [facility] 1.2.840.114 [id number] Univers 00:00:00 00:00:00 [facility] HEALTH 350.1.13.10 it y of [place] 4.2.7.2.686 Hsawn as MICAH?BLEA [phone] Dc brandon MILLARD [address] [place] [address] 2021-06-03 2021-06-03 Refill [facility] 1.2.840.114 [id number] Univers 00:00:00 00:00:00 [facility] 350.1.13.10 it y of [place] 4.2.7.2.686 Shawn as Micah?Blea [phone] Dc brandon millard [address] [place] [address] 2021-06-03 2021-06-03 [facility] 1.2.840.114 [id number] Univers 00:00:00 00:00:00 [facility] 350.1.13.10 it[place] of [place]2.7.2.686 [place] Profess[place] [phone] Dc brandon esteban [address] [place] [address] 2021-05-27 2021-05-27 [facility] 1.2.840.114 [id number] Univers 00:00:00 00:00:00 [facility] 350.1.13.10 ity of [place] 4.2.7.2.686 Shawn as Micah?Blea [phone] Dc brandon millard [address] [place] [address] Office [facility] 2021-05-24 2021-05-24 [facility] 1.2.190.949 [id number] Univers 13:57:39 23:59:00 Encounter Ibrahima Busby 350.1.13.10 ity of [place] 4.2.7.2.686 [facility] [phone] [facility] [address] 2021-05-24 2021-05-24 Outpatient R IBRAHIMA SOMMER [facility] [id number] Univers 13:56:37 13:56:37 IBRAHIMA SOMMER [facility] 2021-05-24 2021-05-24 Outpatient R IBRAHIMA SOMMER [facility] [id number] Univers 13:56:37 13:56:37 IBRAHIMA SOMMER [facility] 2021-05-24 2021-05-24 [facility] 1.2.898.927 [id number] Univers 13:56:37 13:56:37 Encounter Ibrahima [place] [facility]13.10 [facility] 4.2.7.2.686 [facility] [phone] [facility] [address] 2021-05-13 2021-05-13 Outpatient R IBRAHIMA SOMMER [facility] [id number] Univers 00:00:00 00:00:00 IBRAHIMA SOMMER [facility] 2021-05-03 2021-05-03 [facility] 1.2.840.114 [id number] Univers 00:00:00 00:00:00 [facility] 350.1.13.10 it y of [place] 4.2.7.2.686 Shawn as Professio [phone] [address] One 2021-05-03 2021-05-03 Maddie Billy [facility] 1.2.840.114 [id number] Univers 00:00:00 00:00:00 [facility] 350.1.13.10 it y of [place] 4.2.7.2.686 Shawn as Professio [phone] [address] One 2021-04-23 2021-04-23 Videotape Sales Representative Lab, Ang - Paul [facility] 1.2.840.1 14 [id number] Univers 13:30:12 13:45:12 Visit Ibrahima Sommer [facility] 350.1.13. 10 ity of [place] 4.2.7.2.686 Shawn as Micah?Blea [phone] Dc brandon millard [address] Building 2021-04-23 2021-04-23 Office Saud [facility] 1.2.840.114 [id number] Univers 12:51:35 13:28:39 Visit Ibrahima [facility] 350.1.13.10 ity of [place] 4.2.7.2.686 Shawn as Micah?Blea [phone] Dc brandon millard [address] Office [facility] 2021-04-23 2021-04-23 Outpatient IBRAHIMA HERRERA [facility] [id number] Univers 11:20:00 11:20:00 IBRAHIMA SOMMER cristela [facility] 2021-04-16 2021-04-16 Outpatient Matthew IBRAHIMA SOMMER [facility] [id number] Univers 10:40:00 10:40:00 SAUDIBRAHIMA DIOR [facility] 2021-03-28 2021-03-28 Outpatient R IBRAHIMA SOMMER [facility] [id number] Univers 11:00:00 11:00:00 IBRAHIMA SOMMER [facility] 2021-03-22 2021-03-22 [facility] 1.2.840.114 [id number] Univers 00:00:00 00:00:00 [facility] 350.1.13.10 it y of [place] 4.2.7.2.686 Shawn as Professio [phone] [address] Office [facility] One 2021-03-22 2021-03-22 [facility] 1.2.840.114 [id number] 00:00:00 00:00:00 [facility] 350.1.13.10 [place] 4.2.7.2.686 Professio [phone] [place] [address] Office [facility] One 2021-03-21 2021-03-21 Maddie [facility] 1.2.840.114 [id number] Univers 00:00:00 00:00:00 [facility] 350.1.13.10 it y of [place] 4.2.7.2.686 Shawn as Professio [phone] Dc dical [facility] [address] Building One 2021-03-21 2021-03-21 Maddie [facility] 1.2.840.114 [id number] 00:00:00 00:00:00 [facility] 350.1.13.10 [place] 4.2.7.2.686 Professio [phone] nal [facility] Office Building One 2021-02-26 2021-02-26 [facility] 1.2.547.388 [id number] Univers 16:37:25 23:59:00 Encounter Ibrahima Bus[place] 350.1.13.10 [place]2.[place].2.686 [place] [phone] [address] 2021-02-26 2021-02-26 [facility] 1.2.840.114 [id number] Univers 16:36:33 16:36:33 Encounter Zana Bus[place] 350.1.13.10 [place] 4.2.7.2.686 [place] [phone] [address] 2021-02-26 2021-02-26 [facility] 1.2.083.815 [id number] Univers 16:36:21 16:36:21 Encounter Ibrahima [place] 350.1.13.10 it[place] of [place] 4.2.7.2.686 [place] [phone] [address] 2021-02-26 2021-02-26 Outpatient IBRAHIMA HERRERA [facility] [id number] Univers 15:00:00 15:57:07 IBRAHIMA SOMMER [facility] 2021-02-26 2021-02-26 Outpatient IBRAHIMA HERRERA [facility] [id number] Univers 15:00:00 15:57:07 IBRAHIMA SOMMER [facility] 2021-02-26 2021-02-26 Outpatient IBRAHIMA HERRERA [facility] [id number] [facility] 15:00:00 15:57:07 IBRAHIMA SOMMER ity of [facility] 2021-02-26 2021-02-26 Office [facility] 1.2.840.114 [id number] Univers 14:45:21 15:57:07 Visit Ibrahima Busby 350.1.13.10 it[place] of [place] 4.2.7.2.686 [place] [phone] [address] 2021-02-26 2021-02-26 Office [facility] 1.2.840.114 [id number] 14:45:21 15:57:07 Visit Ibrahima Busby 350.1.13.10 [place] 4.2.7.2.686 Professio [phone] [address] 2021-02-26 2021-02-26 Orders Doctor THOMPSON 1.2.840.114 [id number] Univers 00:00:00 00:00:00 Only Unassigned, JONATHAN 350.1.13.10 ity of [place] [facility] 4.2.7.2.686 Shawn as [phone] [address] 2021-02-08 2021-02-08 Office [facility] 1.2.840.114 [id number] [facility] 11:00:38 11:41:35 Visit [facility] 350.1.13.10 it y of [place] 4.2.7.2.686 Shawn as Professio [phone] [address] One 2021-02-08 2021-02-08 Outpatient Matthew BILLY [facility] [id number] Univers 11:00:00 11:00:00 DAMIAN ity [facility] 2021-02-06 2021-02-06 Telephone [facility] 1.2.840.114 [id number] Univers 00:00:00 00:00:00 [facility] 350.1.13.10 it y of [place] 4.2.7.2.686 Shawn as Professio [phone] [address] One 2021-01-15 2021-01-15 Orders Doctor DONNA 1.2.840.114 [id number] Univers 00:00:00 00:00:00 Only Unassigned, JONATHAN 350.1.13.10 ity of [place] [facility] 4.2.7.2.686 Shawn as [phone] [facility] [address] 2020-12-27 2020-12-27 Telephone [facility] 1.2.840.114 [id number] Univers 00:00:00 00:00:00 [facility] 350.1.13.10 it y of [place] 4.2.7.2.686 Shawn as Professio [phone] Me dical nal [address] Office Building One 2020-12-13 2020-12-13 Case Radha Hanson 1.2.840.114 [id number] Univers 00:00:00 00:00:00 Management Margie Anderson 350.1.13.10 ity of [place] 4.2.7.2.686 [place] [phone] [facility] [address] 2020-12-11 2020-12-11 Outpatient [facility] [id number] Univers 14:17:31 23:59:00 [facility] 2020-12-11 2020-12-11 [facility]patient [facility] [id number] Univers 14:17:31 23:59:00 [facility] 2020-12-11 2020-12-11 [facility] 1.2.840.114 [id number] Univers 14:17:31 23:59:00 Encounter [facility] 350.1.13.10 ity of Surgical 4.2.7.2.686 Shawn as Specialti [phone] Me dical es 809 [facility] 2020-12-11 2020-12-11 Office [facility] 1.2.840.114 [id number] Univers 14:05:22 14:20:22 Visit [facility] 350.1.13.10 it y of Surgical 4.2.7.2.686 Shawn as Specialti [phone] Me dical es 198 [facility] 2020-12-052020-12-05 Outpatient R TONYA [facility] [id number] Univers 13:15:00 13:15:00 JOEY brooks [facility] 2020-12-05 2020-12-05 Telephone Cabrera [facility] 1.2.840.114 [id number] Univers 00:00:00 00:00:00 Zana Olviares 350.1.13.10 it y of Surgical 4.2.7.2.686 Shawn as Specialti [phone] Dc dical es [address] [place] 2020-11-09 2020-11-09 Laboratory Lab, Adc Fam Pob I [facility] 1.2. 840.114 [id number] Univers 15:05:03 15:25:03 Only lCaudio Carrasquillo [facility] 350.1.13.10 ity of [place] 4.2.7.2.686 Shawn as Professio [phone] Dc dical nal [address] Office [facility] One 2020-11-09 2020-11-09 Outpatient R LION [facility] [id number] Univers 15:00:00 15:19:52 CLAUDIO brooks [facility] 2020-11-09 2020-11-09 Office [facility] 1.2.840.114 [id number] Univers 14:17:20 14:32:20 Visit [facility] 350.1.13.10 it y of [place] 4.2.7.2.686 Shawn as Professio [phone] Dc dical nal [address] [place] Office [facility] One 2020-11-05 2020-11-05 Refill [facility] 1.2.840.114 [id number] Univers 00:00:00 00:00:00 Damian [facility] 350.1.13.10 it y of [place] 4.2.7.2.686 Shawn as Professio [phone] Dc dical nal [address] [place] Office [facility] One 2020-09-18 2020-09-18 [facility] 1.2.840.114 [id number] Univers 00:00:00 00:00:00 [facility] 350.1.13.10 it y of [place] 4.2.7.2.686 Shawn as Professio [phone] [address] Office [facility] 2020-08-17 2020-08-17 Telephone [facility] 1..840.114 [id number] Univers 00:00:00 00:00:00 [facility] 350.1.13.10 it y of [place] 4.2.7.2.686 Shawn as Professio [phone] [address] 2020-08-15 2020-08-15 Office [facility] 1..840.114 [id number] Univers 15:29:43 16:05:45 Visit [facility] 350.1.13.10 it y of [place] 4.2.7.2.686 Shawn as Professio [phone] [address] 2020-08-15 2020-08-15 Out[facility] [id number] Univers 15:30:00 15:30:00 [facility] 2020-08-15 2020-08-15 Telephone [facility] ..840.114 [id number] Univers 00:00:00 00:00:00 [facility] 350.1.13.10 it y of [place] 4.2.7.2.686 Shawn as Professio [phone] [address] 2020-07-20 2020-07-20 Outpatient R SILVIO [facility] [id number] Univers 10:00:00 10:00:00 GEORGINA [facility] 2020-07-18 2020-07-18 [facility] [id number] Univers 14:15:00 14:15:00 DAMIAN [facility] 2020-07-04 2020-07-04 Outpatient [facility] [id number] Univers 09:30:00 09:30:00 DAMIAN [facility] 2020-06-20 2020-06-20 Videotape Sales Representative Lab, Adc Fam Pob I [facility] 1.2. 840.114 [id number] Univers 11:09:56 11:18:42 Visit Damian Billy [facility] 350..13 .10 ity abebe [place] 4.2.7.2.686 Shawn as Professio [phone] Dc dicmaryjo [facility] [address] Office Building One 2020-06-20 2020-06-20 Office Wenceslao [facility] 1.2.840.114 [id number] Univers 10:10:47 10:40:47 Visit [facility] 350.1.13.10 it y of [place] 4.2.7.2.686 Shawn as Professio [phone] [address] Office Building One 2020-06-20 2020-06-20 Outpatient R WENCESLAO [facility] [id number] Univers 10:15:00 10:15:00 DAMIAN [facility] 2020-05-21 2020-05-21 (TEL) STLMLC STLMLC [id number] Co mmon 00:00:00 00:00:00 [facility] 2020-05-21 2020-05-21 NO CHARGE STLMLC STLMLC [id number] Common 00:00:00 00:00:00 [facility] 2018-11-08 2018-11-08 Outpatient [facility] [id number] Common 11:45:00 11:45:00 [employer] [facility] it [facility] Results Test Description Test Time Test Comments Results Result Comments Source MAGNESIUM 2022-05-03 17:09:05 Test Item Value Reference Range Interpretation Comme nts MAGNESIUM (test code = 8652416975) 1.3 mg/dL 1.7-2.4 L Lab Interpretation (test code = 97454-7) Abnormal [facility] (NA, K, CL, CO2, GLUCOSE, BUN, CREATININE, CA)2022-05-03 17:08:44 Test Item Value Reference Range Interpretation Comments NA (test code = 138 mmol/L 135-145 3761281865) K (test code = 3.2 mmol/L 3.5-5 L 9732079871) CL (test code = 104 mmol/L 98-108 3292487776) CO2 TOTAL (test code = 31 mmol/L 23-31 2661591074) AGAP (test code = 2-16 0077743807) BUN (test code = 9 mg/dL 7-23 7061638692) GLUCOSE (test code = 113 mg/dL 70-110 H 2774267417) CREATININE (test code = 0.39 mg/dL 0.5-1.04 L 9308028914) CALCIUM (test code = 7.2 mg/dL 8.6-10.6 L 6596749812) eGFR (test code = mL/min/1.73m2 5562868214) THI (test code = THI) Association of Glomerular Filtration Rate (GFR) and Staging of Kidney Disease* + --+ --+ ------+| GFR (mL/min/1.73 m2) ?| With Kidney Damage ?| ?Without Kidney Damage+ --------+ --------+ +| ?>90 ?| ?Stage one ?| ? Normal ?+ ---+ ---+ -------+| ?60-89 ?| ?Stage two ?| ? Decreased GFR ? + --+ --+ ------+| ?30-59 ?| ?Stage three ?| ? Stage three ? + --+ --+ ------+| ?15-29 ?| ?Stage four ? | ? Stage four ?+ ---+ ---+ -------+| ?<15 (or dialysis) ? ?| ?Stage five ? | ? Stage five ?+ ---+ ---+ -------+ *Each stage assumes the associated GFR level has been in effect for at least three months. ?Stages 1 to 5, with or without kidney disease, indicate chronic kidney disease. Notes: Determination of stages one and two (with eGFR >59mL/min/1.73 m2) requires estimation of kidney damage for at least three months as defined by structural or functional abnormalities of the kidney, manifested by either:Pathological abnormalities or Markers of kidney damage (including abnormalities in the composition of the blood or urine or abnormalities in imaging tests). Lab Interpretation Abnormal (test code = 75091-3) [facility] [facility]22-[facility]-01 00:00:20 Test Item Value Reference Range Interpretation Comments PH (test code = 2) 7.35-7.45 PCO2 (test code = See_Comment H [Automate d message] [id number]) The system [employer] generated this result transmitted ref erence range: 35 - 45 mmHg. The reference r radha was not used to interpret this result as normal/abnor mal. PO2 (test code = See_Comment H [Automated message] [id number]) The system [employer] generated this result transmitted ref erence range: 80 - 100 mmHg. The reference r radha was not used to interpret this result as normal/abnor mal. HCO3 (test code = See_Comment H [Automate d message] [id number]) The system [employer] generated this result transmitted ref erence range: 22 - 26 mEq/L. The reference r radha was not used to interpret this result as normal/abnor mal. BE (test code = See_Comment H [Automated message] [id number]) The system [employer] generated this result transmitted ref erence range: -3.0 - 3 .0 mEq/L. The refe rence range was not u sed to interpret this result as normal/abnor mal. Lab Interpretation (test Abnormal code = 14786-1) [facility] Arterial Blood Gas.2022-04-30 15:53:27 Test Item Value Reference Range Interpretation Comments PH (test code = 2) 7.35-7.45 PCO2 (test code = See_Comment H [Automate d message] [id number]) The system [employer] generated this result transmitted ref erence range: 35 - 45 mmHg. The reference r radha was not used to interpret this result as normal/abnor mal. PO2 (test code = See_Comment L [Automated message] [id number]) The system [employer] generated this result transmitted ref erence range: 80 - 100 mmHg. The reference r radha was not used to interpret this result as normal/abnor mal. HCO3 (test code = See_Comment H [Automate d message] [id number]) The system [employer] generated this result transmitted ref erence range: 22 - 26 mEq/L. The reference r radha was not used to interpret this result as normal/abnor mal. BE (test code = See_Comment H [Automated message] [id number]) The system [employer] generated this result transmitted ref erence range: -3.0 - 3 .0 mEq/L. The refe rence range was not u sed to interpret this result as normal/abnor mal. Lab Interpretation (test Abnormal code = 39837-3) [facility] BY [id number] 16:25:00Medical Cytology Report Case: [id number] Authorizing Provider: Garth Holly Garth Collected: 12/28/2018 Patsy Estrella MD Ordering Location: [facility] Endoscopy Received: 12/28/2018 1103 Services Pathologist: Salvador Begum MD Specimen: Pancreas PANCREAS CYST FNA BY CLINICIAN (CYTOSPINS AND CELL BLOCK OF ASPIRATE): - NEGATIVE FOR MALIGNANCY - The mucin stain is negative Signing PathologistDirect Phone Line: [phone] signed by Salvador Begum MD on 12/29/2018 at 4:25 PMThe mucin stain is negative and the control slide shows positive staining as expected.99621, 55341, 09555Cfpj cysts in the pancreas, largest measuring 2.0 cmPANCREAS CYST FNA27 mls in cytorich red; 4 cytospins, 1 mucin stain, cell blockCollected: [id number]: [id number] interpretation of this case included the use of immunohistochemistry or special stains. MUCINImmunohistochemistry technical te sting was performed at [facility], Pathology Laboratory where it was developedand its performance characteristics were determined. It has not been cleared or approved by the U.S.Food and Drug Administration. The FDA has determined that such clearance or approval is not necessary. The test is used for clinical purposes. It should not be regarded as investigational or for research. This laboratory is certified under the Clinical Laboratory Improvement Amendments of 1988 (CLIA-88) as qualified to perform high complexity clinical laboratory testing.[facility], Department of Pathology, [address] [place] [address], [facility], [address] [place] [address], [facility], [address] [place] [address], PHLDML [id number] 10:28:00Surgical Pathology Report Case: [id number] Authorizing Provider: GarthHolly Garth Collected: 12/28/2018 0924 MD Delores Ordering Location: [facility] Endoscopy Received: 12/28/2018 1253 Services Pathologist: Kurtis Luna MD Specimen: Ampulla PART A AMPULLARY BIOPSY:PARTIALLY DENUDED NON- NEOPLASTIC SMALL INTESTINAL MUCOSA WITHOUT SIGNIFICANT HISTOPATHOLOGIC ALTERATION.NEGATIVE FOR DYSPLASIA OR INVASIVE CARCINOMA. Signing Pathologist Direct Phone Line: [phone] signed by Kurtis Luna MD on 12/29/2018 at 10:28 [id number] pancreatic lesionampullaThe container is labeled "ampulla" and consists of a single piece of leung-white tissue measuring 2 x 1 x 1 mmand a single piece of feathery white tissue measuring approximately the same dimension submitted entirely in cassette A. TW/bcPERFORMEDAMYLASE, BODY [id number] 13:26:00 Test Item Value Reference Range Interpretation Comments AMYLASE FLUID (BEAKER) (test code = > U/L 350) Absence of reference range indicates that normals have not been defined.Assay performance has not been validated for this type of specimen.FINE NEEDLE ASPIRATE (FNA) [id number] 13:00:00 Test Item Value Reference Range Interpretation Comments CYTOLOGY RESULT POINTER See Separate Report (BEAKER) (test code = 2629)
[2022-06-30 14:28] LABS: Urine Blood Negative (Negative); Urine Glucose Negative (Negative); Urine Protein Negative (Negative); Urine Specific Gravity 1.015 (1.005-1.030); Urine pH 6.5 (5.0-7.0)
[2022-06-30] MEDS ORDERED: IPRATROPIUM BROM 0.5MG/2.5ML ONE (14:44)
[2022-06-30] MEDS ORDERED: KETOROLAC 30 MG/ML INJ ONE (14:44)
[2022-06-30] MEDS ORDERED: ALBUTEROL 2.5 MG/3 ML NEB SOL ONE (14:44)
[2022-06-30 14:48] LABS: Absolute Lymphocytes (CBC) 0.5 K/uL (0.7-4.9); Hematocrit 35.8 % (36.0-45.0); Lymphocytes % 5.8 % (15.3-44.8); MCV 87.1 fL (80-100); MPV 8.3 fL (7.6-11.3); RBC Red Blood Cell Count 4.12 M/uL (3.86-4.86)
[2022-06-30 15:06] LABS: Bicarbonate 39 mmol/L (21-32); Glomerular Filtration Rate 99 ml/min (=/>90); Glucose Level 127 mg/dL (74-106); NT PRO-BNP 21 pg/mL (<125); Potassium 3.6 mmol/L (3.5-5.1); Sodium Level 139 mmol/L (136-145); Troponin High Sensitivity 9.2 pg/mL (<58.9)
--- NOTE | 2022-06-30 15:11 | RAD REPORT ---
EXAM DESCRIPTION: RAD - Chest Single View - 06/30/2022 2:53 pm CLINICAL HISTORY: CHEST PAIN COMPARISON: Portable 04/14/2022 TECHNIQUE: AP portable chest image was obtained 06/30/2022 2:53 pm . FINDINGS: Chronic interstitial lung disease is present most pronounced in each lung base. Pattern is not substantially different when adjusting for technique differences. Severity of chronic pattern co uld mask edema or infiltrate. Heart size is upper normal, similar to prior imaging. No acute vascular engorgement. No measurable pl eural effusion and no pneumothorax. No acute bony abnormality seen. No acute aortic findings suspecte d. IMPRESSION: Chronic interstitial lung pattern worse in each lower lung field. Severity of chronic disease could mask edema or infiltrate.
[2022-06-30 15:12] LABS: BUN Blood Urea Nitrogen < 3 mg/dL (7-18)
--- NOTE | 2022-06-30 16:35 | EDPHYS ---
Physician Documentation [facility] Name: Mila Whiting Age: 66 yrs Sex: Female : 1955 Arrival Date: 06/30/2022 Time: 13:41 Bed 14 Private MD: Mj Mcintyre ED Physician Damian Batista HPI: 06/30 19:10 This 66 yrs old Black Female presents to ER via Wheelchair with complaints of Chest kdr Pain. 15:45 The patient or guardian reports chest pain that is located primarily in the substernal kdr area, anterior chest wall. Onset: suddenly, 2 day(s) ago. The pain does not radiate. Associated signs and symptoms: The patient has no apparent associated signs or symptoms. The chest pain is described as sharp. Duration: The patient or guardian reports multiple episodes, that are intermittent, that wax and wane. Severity of pain: At its worst the pain was mild moderate in the emergency department the pain is unchanged. The patient has not experienced similar symptoms in the past. The patient has not recently seen a physician. Patient complains of midsternal chest pain that began after doing some heavy lifting a few days ago. Is persisted since then has been calm worse when she takes a deep breath or otherwise coughs or moves her chest wall. . Historical: - Allergies: 14:07 liquid magnesium; iw 14:07 Stadol; iw - PMHx: 14:07 acid reflux; Anxiety; COPD; Home O2 4 Lpm; Hypertension; spinal stenosis; iw - PSHx: 14:07 Cholecystectomy; hernia repair; right ankle sx; iw - Immunization history:: Adult Immunizations unknown. - Social history:: Smoking status: . ROS: 15:45 Constitutional: Negative for fever, chills, and weight loss, Eyes: Negative for injury, kdr pain, redness, and discharge, ENT: Negative for injury, pain, and discharge, Neck: Negative for injury, pain, and swelling, Respiratory: Negative for shortness of breath, cough, wheezing, and pleuritic chest pain, Abdomen/GI: Negative for abdominal pain, nausea, vomiting, diarrhea, and constipation, Back: Negative for injury and pain, : Negative for injury, bleeding, discharge, and swelling, MS/Extremity: Negative for injury and deformity, Skin: Negative for injury, rash, and discoloration, Neuro: Negative for headache, weakness, numbness, tingling, and seizure activity. Psych: Negative for depression, anxiety, suicide ideation, homicidal ideation, and hallucinations, Allergy/Immunology: Negative for hives, rash, and allergies, Endocrine: Negative for neck swelling, polydipsia, polyuria, polyphagia, and marked weight changes, Hematologic/Lymphatic: Negative for swollen nodes, abnormal bleeding, and unusual bruising. 15:45 Cardiovascular: Positive for chest pain, Negative for edema, orthopnea, palpitations, paroxysmal nocturnal dyspnea. Exam: 15:38 ECG was reviewed by the Attending Physician. kdr 15:45 Constitutional: This is a well developed, well nourished patient who is awake, alert, kdr and in no acute distress. Head/Face: Normocephalic, atraumatic. Eyes: Pupils equal round and reactive to light, extra-ocular motions intact. Lids and lashes normal. Conjunctiva and sclera are non-icteric and not injected. Cornea within normal limits. Periorbital areas with no swelling, redness, or edema. Neck: Trachea midline, no thyromegaly or masses palpated, and no cervical lymphadenopathy. Supple, full range of motion without nuchal rigidity, or vertebral point tenderness. No Meningismus. Chest/axilla: Normal chest wall appearance and motion. Nontender with no deformity. No lesions are appreciated. Cardiovascular: Regular rate and rhythm with a normal S1 and S2. No gallops, murmurs, or rubs. Normal PMI, no JVD. No pulse deficits. Respiratory: Lungs have equal breath sounds bilaterally, clear to auscultation and percussion. No rales, rhonchi or wheezes noted. No increased work of breathing, no retractions or nasal flaring. Abdomen/GI: Soft, non-tender, with normal bowel sounds. No distension or tympany. No guarding or rebound. No evidence of tenderness throughout. Back: No spinal tenderness. No costovertebral tenderness. Full range of motion. Skin: Warm, dry with normal turgor. Normal color with no rashes, no lesions, and no evidence of cellulitis. MS/ Extremity: Pulses equal, no cyanosis. Neurovascular intact. Full, normal range of motion. Neuro: Awake and alert, GCS 15, oriented to person, place, time, and situation. Cranial nerves II-XII grossly intact. Motor strength 5/5 in all extremities. Sensory grossly intact. Cerebellar exam normal. Normal gait. Psych: Awake, alert, with orientation to person, place and time. Behavior, mood, and affect are within normal limits. 15:45 Cardiovascular: Rate: tachycardic, Rhythm: regular, Pulses: no pulse deficits are appreciated. Vital Signs: 14:06 BP 163 / 78; Pulse 106; Resp 20 S; Pulse Ox 100% on 3 lpm NC; iw 15:00 BP 127 / 64; Pulse 92; Pulse Ox 100% ; ko1 16:00 BP 154 / 92; Pulse 111; Pulse Ox 100% ; ko1 17:00 BP 136 / 65; Pulse 101; Pulse Ox 98% on 3 lpm NC; ko1 MDM: 15:45 HEART Score: History: Slightly Suspicious (0), ECG: Normal (0), Age: > or = 65 years kdr (2), Risk Factors: 1 or 2 risk factors (1), Troponin: < or = 1 x Normal Limit (0), Total Score = 3. Data reviewed: vital signs, nurses notes, lab test result(s), radiologic studies. 16:[address] [facility] 06/30 13:57 Order name: Basic Metabolic Panel; Complete Time: 15:53 [facility] 06/30 13:57 Order name: CBC with Diff; Complete Time: 15:06 [facility] 06/30 13:57 Order name: NT PRO-BNP; Complete Time: 15:53 [facility] 06/30 13:57 Order name: Troponin HS; Complete Time: 15:53 [facility] 06/30 14:29 Order name: Urine Dipstick-Ancillary; Complete Time: 15:06 [facility] 06/30 15:54 Order name: Troponin High Sensitivity: draw now; Complete Time: 16:33 kdr 06/30 13:57 Order name: XRAY Chest (1 view); Complete Time: 15:53 [facility] 06/30 13:57 Order name: EKG; Complete Time: 13:58 kdr 06/30 13:57 Order name: Cardiac monitoring; Complete Time: 14:40 [facility] 06/30 13:57 Order name: EKG - Nurse/Tech; Complete Time: 14:40 kdr 06/30 13:57 Order name: IV Saline Lock; Complete Time: 14:40 [facility] 06/30 13:57 Order name: Labs collected and sent; Complete Time: 14:40 kdr 06/30 13:57 Order name: O2 Per Protocol; Complete Time: 14:40 kdr 06/30 13:57 Order name: O2 Sat Monitoring; Complete Time: 14:40 kdr EC:38 Rate is 101 beats/min. Rhythm is regular, Sinus tachycardia with No ectopy. QRS [place] is kdr Normal. [place] interval is normal. QRS interval is normal. QT interval is normal. No Q waves. Clinical impression: NSR w/ Non-specific ST/T Changes. Administered Medications: 14:49 Drug: Albuterol - atroVENT (ipratropium) (3:1) (2.5 mg - 0.5 mg) 3 ml Route: Nebulizer; ko1 14:49 Drug: Ketorolac 15 mg Route: IVP; Site: left forearm; ko1 Disposition Summary: 06/30/22 16:35 Discharge Ordered Location: Home kdr Problem: new kdr Symptoms: have improved kdr Condition: Stable kdr Diagnosis - Chest pain on breathing kdr - Costochondritis kdr Followup: kdr - With: Mj Mcintyre MD - When: 2 - 3 days - Reason: If symptoms return, Further diagnostic work-up, Recheck today's complaints, Continuance of care, Re-evaluation by your physician Discharge Instructions: - Discharge Summary Sheet kdr - Chest Wall Pain kdr - Costochondritis kdr - Nonspecific Chest Pain, Adult, [id number] kdr Forms: - Medication Reconciliation Form kdr - Thank You Letter kdr Prescriptions: - Ibuprofen 600 mg Oral Tablet - take 1 tablet by ORAL route every 6 hours As needed take with food; 20 tablet; kdr Refills: 0, Product Selection Permitted - Tramadol 50 mg Oral Tablet - take 1 tablet by ORAL route every 8 hours As needed as needed; 12 tablet; kdr Refills: 0, Product Selection Permitted - Medrol (Lucio) 4 mg Oral Tablets, Dose Pack - take 1 tablet by ORAL route as directed - follow package instructions; 1 kdr packet; Refills: 0, Product Selection Permitted Signatures: Dispatcher [employer] Damian Tidwell MD MD kdr Delia Marcos RN RN iw Emmie Woodall RN RN ko1
--- NOTE | 2022-06-30 16:35 | ER ---
Nurse's Notes [facility] Name: Mila Whiting Age: 66 yrs Sex: Female : 1955 Arrival Date: 06/30/2022 Time: 13:41 Bed 14 Private MD: Mj Mcintyre Diagnosis: Chest pain on breathing;Costochondritis Presentation: 06/30 14:06 Chief complaint: Patient states: midsternal chest pain after doing some heavy lifting a iw few days ago, has pain when moving a certain way or taking a deep breath, also has some chest tightness. Coronavirus screen: Client presents with at least one sign or symptom that may indicate coronavirus-19. Ebola Screen: Patient negative for fever greater than or equal to 101.5 degrees Fahrenheit, and additional compatible Ebola Virus Disease symptoms Patient denies exposure to infectious person. Patient denies travel to an Ebola-affected area in the 21 days before illness onset. No symptoms or risks identified at this time. Initial Sepsis Screen: Does the patient meet any 2 criteria? No. Patient's initial sepsis screen is negative. Does the patient have a suspected source of infection? No. Patient's initial sepsis screen is negative. Risk Assessment: Do you want to hurt yourself or someone else? Patient reports no desire to harm self or others. Onset of symptoms was June 28, 2022. 14:06 Method Of Arrival: Wheelchair iw 14:06 Acuity: CRISTY 3 iw Historical: - Allergies: 14:07 liquid magnesium; iw 14:07 Stadol; iw - PMHx: 14:07 acid reflux; Anxiety; COPD; Home O2 4 Lpm; Hypertension; spinal stenosis; iw - PSHx: 14:07 Cholecystectomy; hernia repair; right ankle sx; iw - Immunization history:: Adult Immunizations unknown. - Social history:: Smoking status: . Screenin:30 Abuse screen: Denies threats or abuse. Denies injuries from another. Nutritional ko1 screening: No deficits noted. Tuberculosis screening: No symptoms or risk factors identified. Fall Risk None identified. Assessment: 14:20 General: Appears in no apparent distress. uncomfortable, Behavior is calm, cooperative, ko1 appropriate for age. Pain: Pain does not radiate. Pain began 3 hours ago. Neuro: No deficits noted. Cardiovascular: No deficits noted. Respiratory: Reports cough that is productive, pain with cough. GI: No deficits noted. : No deficits noted. EENT: No deficits noted. Derm: No deficits noted. Musculoskeletal: No deficits noted. Vital Signs: 14:06 BP 163 / 78; Pulse 106; Resp 20 S; Pulse Ox 100% on 3 lpm NC; iw 15:00 BP 127 / 64; Pulse 92; Pulse Ox 100% ; ko1 16:00 BP 154 / 92; Pulse 111; Pulse Ox 100% ; ko1 17:00 BP 136 / 65; Pulse 101; Pulse Ox 98% on 3 lpm NC; ko1 Vitals: 16:47 Cardiac Rhythm Assessment Regular Sinus tach. ko1 ED Course: 13:41 Patient arrived in ED. as 13:42 Mj Mcintyre MD is Private Physician. as 13:56 Damian Batista MD is Attending Physician. kdr 13:58 Emmie Woodall, CARLOS is Primary Nurse. ko1 14:07 Triage completed. iw 14:30 No provider procedures requiring assistance completed. Inserted saline lock: 22 gauge ko1 in left forearm, using aseptic technique. Blood collected. Oxygen administration via nasal cannula \T\ 3L/min. 14:30 IV discontinued, intact, bleeding controlled, No redness/swelling at site. Pressure ko1 dressing applied. 14:30 Patient has correct armband on for positive identification. Placed in gown. Bed in low ko1 position. Call light in reach. Side rails up X 1. Client placed on continuous cardiac and pulse oximetry monitoring. NIBP monitoring applied. chin strap maker on. Door closed. Noise minimized. 14:40 Basic Metabolic Panel Sent. ko1 14:40 Troponin HS Sent. ko1 14:40 CBC with Diff Sent. ko1 14:40 NT PRO-BNP Sent. ko1 14:55 XRAY Chest (1 view) In Process Unspecified. EDMS 15:59 Troponin High Sensitivity: draw now Sent. ko1 16:34 Mj Mcintyre MD is Referral Physician. kdr 16:49 Arm band placed on right wrist. Patient placed in an exam room, on a stretcher, on ko1 oxygen, on special services agent, on pulse oximetry. Administered Medications: 14:49 Drug: Albuterol - atroVENT (ipratropium) (3:1) (2.5 mg - 0.5 mg) 3 ml Route: Nebulizer; ko1 14:49 Drug: Ketorolac 15 mg Route: IVP; Site: left forearm; ko1 Medication: 16:47 VIS not applicable for this client. ko1 Outcome: 14:30 Discharged to home ambulatory, with friend. ko1 14:30 Condition: good 14:30 Discharge instructions given to patient, Instructed on discharge instructions, follow up and referral plans. medication usage, Demonstrated understanding of instructions, follow-up care, medications, Prescriptions given X 3. 16:35 Discharge ordered by . kdr 17:04 Patient left the ED. ko1 Signatures: Dispatcher [employer] EDMS Damian Batista MD MD kdr Martinez, Amelia as Williams, Irene, RN RN iw Emmie Woodall RN RN ko1
[2022-06-30 17:16] VITALS: BP 136/65; O2SAT 98
--- NOTE | 2022-07-03 06:05 | EKG ---
Test Date: 2022-06-30 Test Time: 14:08:04 Filler And Trimmer: DEENA MEASUREMENT RESULTS: Intervals: Rate: 101 AL: 194 QRSD: 84 QT: 320 QTc: 414 [place]: P: 73 AL: 194 QRS: 69 T: 53 INTERPRETIVE STATEMENTS: Sinus tachycardia Right atrial enlargement RSR' or QR pattern in V1 suggests right ventricular conduction delay Minimal voltage criteria for LVH, may be normal variant Borderline ECG Compared to ECG 04/12/2022 08:05:39 RSR' in V1 or V2 now present Right-axis deviation no longer present Electronically Signed On 07-03-22 06:00:32 CDT by Rusty Castillo
== END 2022-06-30 17:04 | disposition home or self-care (01) ==
LOC: ER 13:38
DX: R07.1 Chest pain on breathing (principal); M94.0 Chondrocostal junction syndrome [Tietze]; I10 Essential (primary) hypertension; Z88.4 Allergy status to anesthetic agent; Z99.81 Dependence on supplemental oxygen; Z91.048 Other nonmedicinal substance allergy status
CPT/HCPCS: 36415; 71045; 80048; 81003; 83880; 84484; 85025; 93005; 94640; 96374; 99285

== ENCOUNTER 2022-07-17 16:47 | Emergency (ER) | payer OTHER ==
--- OUTSIDE RECORDS SUMMARY | 2022-07-17 16:54 | XMS REPORT | Continuity of Care Document ---
:1955 Author Organization [facility] t Address [address] [place] [address] Care Team Providers Name Role Phone Reshma Galan MD, Guille Gay Primary Care Physician [phone] hCantel Guido Attending Clinician Unavailable Doctor Unassigned, [place] Attending Clinician Unavailable DAMIAN BILLY Attending Clinician Unavailable Damian Billy MD Attending Clinician Fabienne GONZALEZ, Harry Simmons Attending Clinician Unavailable MARIPOSA CRAIG Attending Clinician Unavailable Mariposa Craig MD Attending Clinician Jayden Cordero MD Attending Clinician JEFF SAMPSON Attending Clinician Unavailable Jeff Sampson DO Attending Clinician ZIGGY MEJIA Attending Clinician Unavailable ZIGGY MEJIA Attending Clinician Unavailable IZZY TSAI Attending Clinician Unavailable Ibrahima Sommer MD Attending Clinician IBRAHIMA SOMMER Attending Clinician Unavailable IBRAHIMA SOMMER Attending Clinician Unavailable Lab, Ang - Db Attending Clinician Unavailable Zana Cabrera MD Attending Clinician Margie Hanson MA Attending Clinician Unavailable JOEY CASTANEDA Attending Clinician Unavailable Joey Curry Attending Clinician Lab, Adc Fam Pob I Attending Clinician Unavailable Claudio Rhoades Attending Clinician CLAUDIO SEYMOUR Attending Clinician Unavailable GEORGINA ANGUIANO Attending Clinician Unavailable HOLLY MCKEON Attending Clinician Unavailable JAYDEN CORDERO Admitting Clinician Unavailable Jayden Cordero MD Admitting Clinician JEFF SAMPSON Admitting Clinician Unavailable HOLLY MCKEON Admitting Clinician Unavailable Payers Payer Name Policy Type Policy Number Effective Date Expiration Date S [facility] INPATIENT PART B [id number] 2020 ONLY MEDICARE 00:00:00 [place] [id number] [facility] Problems Condition Condition Condition Status Onset Resolution Last Treating Co mments Source Name Details Category Date Date Treatment Clinician Date Hypercapni Hypercapni Disease Active U nivers c c 8-31 [place] respir[place] failure y failure [facility] Branch COPD COPD Disease Active Univers exacerbati exacerbati 5- it y of on on 00:00: [place] 00 [facility] Branch Symptomati Symptomati Disease Active U nivers c c 7-11 [place]y of menopausal [place]opausal [place] female or female 00 [facility] climacteri climacteri Br anch c states c states Essential Essential Disease Active Uni vers hypertensi hypertensi 6-05 it y of on, benign [place], benign [place] [facility] [place] Spinal Spinal Disease Active Univers stenosis, stenosis, 02-02 ity of unspecifie unspecifie [place] region d region 00 Medica l other than other than Br anch cervical cervical Spinal Spinal Disease Active Univers stenosis, stenosis, 02-02 ity of unspecifie unspecifie [place] 00 Medica l other than other than Br anch cervical cervical [id number] History of Problem Active Co mmon colon Spirit polyps [facility] [id number] Anxiety Problem Active Common Spirit [facility] [id number] Essential Problem Active Comm on hypertensi Spirit on [facility] [id number] Chronic Problem Active Commo n GERD Spirit [facility] [id number] Umbilical Problem Active Commo n hernia Spirit without - [facility] [id number] History of Problem Active C ommon 9101 hepatitis Spirit C [facility] [id number] Chronic Problem Active Common obstructiv Spirit e - [facility] pulmonary [facility] disease, kes unspecifie Medica l d COPD Center type [id number] Spinal Problem Active Common stenosis Spirit of lumbar - [facility] neurogenic Medica l claudicati Center on [id number] Other Problem Active Common chronic Spirit pain [facility] Allergies, Adverse Reactions, Alerts Allergy Allergy Status Severity Reaction(s) Onset Inactive Treating Comm ents Source Name Type Date Date Clinician Magnesiu Propensi Active Anaphylaxis Liquid C HI [facility] 12-27 [facility] adverse 00:00: Medical reaction 00 Center s Butorpha Propensi Active Anaphylaxis C HI [facility] nol ty to 429 [facility] Tartrate adverse 00:00: Medical reaction 00 Center s Magnesiu Propensi Active Anaphylaxis Liquid U nivers m ty to 3-05 form ity of adverse 00:00: [place] reaction Medical s Branch MAGNESIU DRUG Active High N/V Univers M INGREDI 3-05 ity of 00:00: [place] [facility] Butorpha Propensi Active Anaphylaxis 0 Seizures Univers nol ty to 6-05 per pt ity of Tartrate adverse 00:00: [place] reaction Medical s Branch BUTORPHA DRUG Active High Unknown-Cmnt 2006-0 Un nathen NOL INGREDI 6-05 ity of TARTRATE 00:00: [place] 00 Medical Branch Social History Social Habit Start Date Stop Date Quantity Comments Source History SDOH [facility] Alcohol Comment Medical C enter History SDOH [facility] Alcohol Std Drinks Medica l Center History SDOH [facility] Alcohol Binge Medical [address] History of Tobacco Former Smoker Com mon Spirit - Use [facility] St kes [facility] Exposure to 2022-05-11 2022-05-21 Not sure University of SARS-CoV-2 (event) 00:00:00 13:54:00 [facility] Branch History [facility] Food 2022-05-07 2022-05-07 1 Univers ity of Worry 00:00:00 00:00:00 [facility] History [facility] Food 2022-05-07 2022-05-07 1 Univers ity of Scarcity 00:00:00 00:00:00 [facility] Branch History [facility] 2022-05-07 2022-05-07 2 University o f Transport Med 00:00:00 00:00:[address] [facility] al Branch History [facility] 2022-05-07 2022-05-07 2 University o f Transport Non-Med 00:00:00 00:00:00 [facility] Alcohol intake 2018-12-28 2018-12-[address] [facility] 00:00:00 00:00:00 non-drinker of Medical Ce nter alcohol (finding) Tobacco Comment 2018-12-27 2018-12-27 [facility] 00:[facility]00 [facility] Center Tobacco use and 2018-12-27 2018-12-[address] [facility] k[facility] exposure 00:00:00 00:00:00 [facility] Center History [facility] 2018-12-27 2018-12-[address] [facility] Alcohol Frequency 00:00:00 00:00:00 [facility] Cigarettes smoked 2015-12-30 2015-12-30 Univers ity of current (pack per 00:00:00 00:00:00 [facility]) - Reported Branch Cigarette 2015-12-30 2015-12-30 University of pack-years 00:00:00 00:00:00 [facility] Sex Assigned At [address] [facility] kes 00:00:00 00:00:00 Medical Center Smoking Status Start Date Stop Date Source Former Smoker 2018-10-29 00:00:00 2018-10-29 00:00:00 Common S pirit - [facility] Medications Ordered Filled Start Stop Current Ordering Indication Dosage Frequency Signature Comments Components Source Medication Medication Date Date Medication? Clinician (SIG) Name Name diazePAM Yes [id number] 5mg Take 1 Uni vers (VALIUM) 5 9-21 tablet by ity of mg tablet 00:00: mouth 3 [place] 00 (three) Medical times Branch daily as needed for Anxiety. diazePAM Yes [id number] 5mg Take 1 Uni vers (VALIUM) 5 9-21 tablet by ity of mg tablet 00:00: mouth 3 [place] 00 (three) Medical times Branch daily as needed for Anxiety. cholecalcif 2021- Yes [id number] 1000U Take 1 Univers morgan, 05-05 [id number] tablet by ity o f vitamin D3, 00:00: 04:59 mouth in [place] 25 mcg 00 :00 the Medical (1,000 morning Branch unit) for 5 tablet days. zinc 2021- Yes [id number] 50mg Take 1 Uni vers sulfate 50 05-05 [id number] capsule by ity of mg zinc 00:00: 04:59 mouth in [place] (220 mg) 00 :00 the Medical capsule morning Branch for 5 days. cholecalcif 2021- Yes [id number] 1000U Take 1 Univers morgan, 05-05 [id number] tablet by ity o f vitamin D3, 00:00: 04:59 mouth [place] 25 mcg 00 :00 the Medical (1,000 morning Branch unit) for 5 tablet days. zinc 2021- Yes [id number] 50mg Take 1 Uni vers sulfate 50 05-05 [id number] capsule by ity of mg zinc 00:00: 04:59 mouth in [place] (220 mg) 00 :00 the Medical capsule morning Branch for 5 days. MOMETASONE Yes Use in [facility] ers FUROATE 05-04 each ity of (NASONEX 16:58: nostril. [place] NASAL) 28 Medical Branch HYDROcodone Yes 1{tbl} Take 1 Un nathen -acetaminop 9-04 tablet by ity of hen 7.5-325 16:58: mouth 3 [place] mg per 28 (three) Medical tablet times Branch daily. OXYGEN-AIR 2021-0 Yes by Univers DELIVERY 9-04 Miscellane ity o f SYSTEMS 16:58: ous route. Tripp morgan [place] [address] Medical Branch predniSONE 2021-0 Yes 5mg Take 5 mg Un nathen 5 mg tablet 9-04 by mouth. ity of 16:58: [address] Branch MOMETASONE Yes Use in Unive [...] f SYSTEMS 16:58: ous route. Tripp morgan [place] [address] Medical Branch predniSONE 0 Yes 5mg Take 5 mg Un nathen 5 mg tablet 9-04 by mouth. ity of 16:58: [address] MOMETASONE Yes Use in Unive rs FUROATE 9-04 each ity of (NASONEX 16:58: nostril. [place] NASAL) Medical Branch HYDROcodone Yes 1{tbl} Take 1 Un nathen -acetaminop 9-04 tablet by ity of hen 7.5-325 16:58: mouth 3 [place] mg per 28 (three) Medical tablet times Branch daily. OXYGEN-AIR 2021-0 Yes by Univers DELIVERY 9-04 Miscellane ity o f SYSTEMS 16:58: ous route. [place] [address] Medical Branch predniSONE 2021-0 Yes 5mg Take 5 mg Un nathen 5 mg tablet 9-04 by mouth. ity of 16:58: [address] Branch MOMETASONE Yes Use in Unive rs FUROATE 9-04 each ity of (NASONEX 16:58: nostril. [place] NASAL) Medical Branch HYDROcodone Yes 1{tbl} Take 1 Un nathen -acetaminop 9-04 tablet by ity of hen 7.5-325 16:58: mouth 3 [place] mg per 28 (three) Medical tablet times Branch daily. OXYGEN-AIR 0 Yes by Univers DELIVERY 04 Miscellane ity o f SYSTEMS 16:58: ous route. [place] [address] Branch predniSONE Yes 5mg Take 5 mg Un nathen 5 mg tablet 9-04 by mouth. ity of 16:58: [address] MOMETASONE Yes Use in Unive rs FUROATE 05-04 each ity of (NASONEX 16:58: nostril. [place] NASAL) Medical Branch HYDROcodone Yes 1{tbl} Take 1 Un nathen -acetaminop 9-04 tablet by ity of hen 7.5-325 16:58: mouth 3 [place] mg per 28 (three) Medical tablet times Branch daily. OXYGEN-AIR 0 Yes by Univers DELIVERY 05-04 Miscellane ity o f SYSTEMS 16:58: ous route. [place] mor[place] [address] Branch predniSONE Yes 5mg Take 5 mg Un nathen 5 mg tablet 05-04 by mouth. ity of 16:58: [address] MOMETASONE Yes Use in Unive rs FUROATE 05-04 each ity of (NASONEX 16:58: nostril. [place] NASAL) Medical Branch HYDROcodone Yes 1{tbl} Take 1 Un nathen -acetaminop 9-04 tablet by ity of hen 7.5-325 16:58: mouth 3 [place] mg per 28 (three) Medical tablet times Branch daily. OXYGEN-AIR 0 Yes by Univers DELIVERY -04 Miscellane ity o f SYSTEMS 16:58: ous route. [address] predniSONE Yes 5mg Take 5 mg Un nathen 5 mg tablet -04 by mouth. ity of 16:58: [address] Branch TIOTROPIUM 2- No Inhale. Uni vers BROMIDE 05-04 09-04 ity of (SPIRIVA 11:06: 00:00 [place] RESPIMAT 58 :00 Medical INHALE) Branch promethazin 2021- No 5mL Take 5 mL Univers e-codeine 05-04 by mouth. ity of 6.25-10 11:06: 00:00 [place] mg/5 mL 58 :00 Medical syrup Branch methocarbam Yes [id number] 500mg Take 1 Univers oL 500 mg - [id number] tablet by it y of tablet 00:00: mouth (three) Medical times Branch daily as needed (Muscle spasms). methocarbam Yes [id number] 500mg Take 1 Univers oL 500 mg - [id number] tablet by it y of tablet 00:00: mouth (three) Medical times Branch daily as needed (Muscle spasms). methocarbam Yes [id number] 500mg Take 1 Univers oL 500 mg 05-04 [id number] tablet by it y of tablet 00:00: mouth (three) Medical times Branch daily as needed (Muscle spasms). methocarbam Yes [id number] 500mg Take 1 Univers oL 500 mg 05-04 [id number] tablet by it y of tablet 00:00: mouth (three) Medical times Branch daily as needed (Muscle spasms). methocarbam Yes [id number] 500mg Take 1 Univers oL 500 mg - [id number] tablet by it y of tablet 00:00: mouth (three) Medical times Branch daily as needed (Muscle spasms). methocarbam Yes [id number] 500mg Take 1 Univers oL 500 mg - [id number] tablet by it y of tablet 00:00: mouth (three) Medical times Branch daily as needed (Muscle spasms). acetaminoph 2022- Yes [id number] 650mg Take 2 Univers en 325 mg 05-04 [id number] tablets by ity of tablet 00:00: 04:59 mouth [place] 00 :00 every 6 Medical (six) Branch hours as needed for Pain (scale 1-3) or Temp > 38.5 C. acetaminoph 2022- Yes [id number] 650mg Take 2 Univers en 325 mg -05-05 [id number] tablets by ity of tablet 00:00: 04:59 mouth [place] 00 :00 every 6 Medical (six) Branch hours as needed for Pain (scale 1-3) or Temp > 38.5 C. acetaminoph 2022- Yes [id number] 650mg Take 2 Univers en 325 mg -05-05 [id number] tablets by ity of tablet 00:00: 04:59 mouth [place] 00 :00 every 6 Medical (six) Branch hours as needed for Pain (scale 1-3) or Temp > 38.5 C. acetaminoph 2022- Yes [id number] 650mg Take 2 Univers en 325 mg 05-04 [id number] tablets by ity of tablet 00:00: 04:59 mouth [place] 00 :00 every 6 Medical (six) Branch hours as needed for Pain (scale 1-3) or Temp > 38.5 C. acetaminoph 2022- Yes [id number] 650mg Take 2 Univers en 325 mg -05-05 [id number] tablets by ity of tablet 00:00: 04:59 mouth [place] 00 :00 every 6 Medical (six) Branch hours as needed for Pain (scale 1-3) or Temp > 38.5 C. acetaminoph 2022- Yes [id number] 650mg Take 2 Univers en 325 mg -05-05 [id number] tablets by ity of tablet 00:00: 04:59 mouth [place] 00 :00 every 6 Medical (six) Branch hours as needed for Pain (scale 1-3) or Temp > 38.5 C. citalopram 2021- Yes [id number] 20mg Take 1 Univers 20 mg 9- 10-05 tablet by ity of tablet 00:00: 04:59 mouth in [place] 00 :00 the Medical morning Branch for 30 days. citalopram 2021- Yes [id number] 20mg Take 1 Univers 20 mg 9-04 10-05 tablet by ity of tablet 00:00: 04:59 mouth in [place] 00 :00 the Medical morning Branch for 30 days. citalopram 2021- Yes [id number] 20mg Take 1 Univers 20 mg 05-0405 tablet by ity of tablet 00:00: 04:59 mouth in [place] 00 :00 the Medical morning Branch for 30 days. citalopram 2021- Yes [id number] 20mg Take 1 Univers 20 mg 05-0405 tablet by ity of tablet 00:00: 04:59 mouth in [place] 00 :00 the Medical morning Branch for 30 days. citalopram 2021- Yes [id number] 20mg Take 1 Univers 20 mg 05-04 tablet by ity of tablet 00:00: 04:59 mouth in [place] 00 :00 the Medical morning Branch for 30 days. ascorbic 2021- Yes [id number] 500mg Take 1 Univers acid, 05-04 [id number] tablet by ity o f vitamin C, 00:00: 04:59 mouth [place] 500 mg 00 :00 the Medical tablet morning Branch and 1 tablet in the evening. Do all this for 5 days. dexAMETHaso 2021- Yes [id number] 6mg Take 1 Univers ne 6 mg 05-04 [id number] tablet by ity of tablet 00:00: 04:59 mouth in [place] 00 :00 the Medical morning Branch for 5 days. ascorbic 2021- Yes [id number] 500mg Take 1 Univers acid, 05-04 [id number] tablet by ity o f vitamin C, 00:00: 04:59 mouth [place] 500 mg 00 :00 the Medical tablet morning Branch and 1 tablet in the evening. Do all this for 5 days. dexAMETHaso 2021- Yes [id number] 6mg Take 1 Univers ne 6 mg 05-04 [id number] tablet by ity of tablet 00:00: 04:59 mouth in [place] 00 :00 the Medical morning Branch for [...] 05-02 Oral, ity of (ROBAXIN) 17:24: TIDPRN, [place] tablet 500 33 Starting Medic al mg on Thu Branch 05/02/22 at 1224, Until Discontinu ed, Routine, Muscle Spasms acetaminoph Yes 650mg 650 mg, Un nathen en 05-02 Oral, ity of (TYLENOL) 09:36: Q6HPRN, [place] tablet 650 19 Starting Medic al mg [...]
Durat ion of therapy: 72 hours diazePAM 2021-0 2021- No 5mg 5 mg, Univers (VALIUM) 05-01 Oral, ity of tablet 5 mg 16:15: 15:33 ONCE, 1 [place] 00 :00 dose, On Medical Thu05/01/22 Branch at 1115, Routine pantoprazol Yes 40mg 40 mg, Univ ers e 05-01 Oral, ity of (PROTONIX) 14:00: DAILY, [place] EC tablet 00 First dose Medi josé miguel 40 mg on Thu Branch 05/01/22 at 0900, Until Discontinu ed, Routine amLODIPine Yes 5mg 5 mg, Univer s (NORVASC) 05-01 Oral, ity of tablet 5 mg 14:00: DAILY, [place] 00 First dose Medical on Thu Branch 05/01/22 at 0900, Until Discontinu ed, Routine acetaZOLAMI Yes 250mg 250 mg, Un nathen DE (DIAMOX) 05-01 Oral, ity of tablet 250 14:00: DAILY, [place] mg 00 First dose Medical on Thu Branch 05/01/22 at 0900, Until Discontinu ed, Routine dexamethaso 2021- Yes 6mg 6 mg, Univ ers ne sod phos 05-01 Intravenou i ty of PF 14:00: 13:59 s, DAILY, [place] injection 6 00 :00 9 doses, Medi josé miguel mg First dose Branch on Thu05/01/22 at 0900, Last dose on Thu05/09/22 at 0900, 1 mL magnesium 2021- No 2g 2 g, IV Univ ers sulfate in 05-01 Piggyback, it y of water 2 14:00: 18:53 Administer [place] gram/50 mL 00 :00 over 60 Medica l (4 %) Minutes, Branch infusion 2 ONCE, 1 g dose, On Thu05/01/22 at 0900, Routine enoxaparin Yes 40mg 40 mg, Unive rs (LOVENOX) 04-30 Subcutaneo ity of injection 22:00: [place], DAILY, [place] 40 mg 00 First dose Medical on Thu Branch 04/30/22 at 1700, Until Discontinu ed, Routine morpHINE (4 2021-0 202- No 2mg 2 mg, Slow Univers mg/mL) 04-30 IV Push, ity of injection 2 18:15: 17:42 ONCE, 1 [place] mg 00 :00 dose, On Medical Wed Branch 04/30/22 at 1315, Routine diazePAM 2021-0 [...] cholecalcif 2021-0 Yes 1000U 1,000 Univ ers morgan 04-30 Units, ity of (vitamin 14:00: Oral, [place] D3) tablet 00 DAILY, Medical 1,000 Units First dose Br anch on Thu04/30/22 at 0900, Until Discontinu ed, Routine zinc 0 Yes 50mg 50 mg, Univers sulfate 04-30 Oral, ity of (ORAZINC) 14:00: DAILY, [place] capsule 50 00 First dose Med ical mg on Thu Branch 04/30/22 at 0900, Until Discontinu ed, Routine ascorbic 0 Yes 500mg 500 mg, Unive rs acid 04-30 Oral, BID, ity of (vitamin C) 13:15: First dose [place] (VITAMIN C) 00 on Thu Medica l tablet 500 04/30/22 at [facility] mg 0815, Until Discontinu ed, Routine ipratropium 0 Yes 3mL 3 mL, Unive rs -albuteroL 04-30 Inhalation ity of (DUONEB) 13:15: , Q4H, [place] 0.5 mg-3 00 First dose Medic al mg(2.5 mg on Thu Branch base)/3 mL 04/30/22 at nebulizer 0815, solution 3 Until mL Discontinu ed, Routine ALPRAZolam 2021- No 1mg 1 mg, Unive rs (XANAX) 04-30 Oral, ity of tablet 1 mg 12:30: 12:17 ONCE, 1 [place] 00 :[place] dose, On Medical Wed Branch 04/30/22 at 0730, MINDA ipratropium 2021- No 3mL 3 mL, Univ ers -albuteroL 04-30 Inhalation it y of (DUONEB) 12:30: 11:47 , ONCE, 1 [place] as 0.5 mg-3 00 :00 dose, On Medical mg(2.5 mg Thu Branch base)/3 mL 04/30/22 at nebulizer 0730, solution 3 Routine mL methylpredn 2021- No 125mg 125 mg, U nivers isolone sod 04-30 Intravenou i ty of succ 12:15: 11:27 s, ONCE, 1 [place] (SOLU-MEDRO 00 :00 dose, On Medi josé miguel L) Wed Branch injection 04/30/22 at 125 mg 0715, 2 mL ipratropium Yes 3mL 3 mL, Unive rs -albuteroL 04-24 Inhalation ity of (DUONEB) 01:00: , QID, [place] 0.5 mg-3 00 First dose Medic al mg(2.5 mg on Thu Branch base)/3 mL 04/23/22 at nebulizer 2000, solution 3 Until mL Discontinu ed, Routine methylpredn Yes 125mg 125 mg, Un nathen isolone sod 04-23 Intravenou it y of succ 23:00: s, Q6H, [place] (SOLU-MEDRO 00 First dose Me dical L) [...] used for status epilepticu s? No diazePAM 2022-0 Yes [id number] 5mg Take 1 Uni vers (VALIUM) 5 5-13 tablet by ity of mg tablet 00:00: mouth 3 (three) Medical times Branch daily as needed for Anxiety. diazePAM 2021-0 Yes [id number] 5mg Take 1 Uni vers (VALIUM) 5 5-13 tablet by ity of mg tablet 00:00: mouth 3 (three) Medical times Branch daily as needed for Anxiety. diazePAM 2021-0 Yes [id number] 5mg Take 1 Uni vers (VALIUM) 5 5-13 tablet by ity of mg tablet 00:00: mouth 3 (three) Medical times Branch daily as needed for Anxiety. diazePAM 0 Yes [id number] 5mg Take 1 Uni vers (VALIUM) 5 5-13 tablet by ity of mg tablet 00:00: mouth (three) Medical times Branch daily as needed for Anxiety. diazePAM 2021-0 Yes [id number] 5mg Take 1 Uni vers (VALIUM) 5 5-13 tablet by ity of mg tablet 00:00: mouth (three) Medical times Branch daily as needed for Anxiety. diazePAM 0 Yes [id number] 5mg Take 1 Uni vers (VALIUM) 5 5-13 tablet by ity of mg tablet 00:00: mouth (three) Medical times Branch daily as needed for Anxiety. diazePAM 0 Yes [id number] 5mg Take 1 Uni vers (VALIUM) 5 5-13 tablet by ity of mg tablet 00:00: mouth 3 (three) Medical times Branch daily as needed for Anxiety. diazePAM 2021-0 Yes [id number] 5mg Take 1 Uni vers (VALIUM) 5 5-13 tablet by ity of mg tablet 00:00: mouth 3 (three) Medical times Branch daily as needed for Anxiety. diazePAM 2021-0 Yes [id number] 5mg Take 1 Uni vers (VALIUM) 5 5-13 tablet by ity of mg tablet 00:00: mouth 3 (three) Medical times Branch daily as needed for Anxiety. diazePAM 2021-0 Yes [id number] 5mg Take 1 Uni vers (VALIUM) 5 5-13 tablet by ity of mg tablet 00:00: mouth 3 (three) Medical times Branch daily as needed for Anxiety. diazePAM 2021-0 2021- No [id number] 5mg Take 1 Un nathen (VALIUM) 5 5-13 09-21 tablet by ity of mg tablet 00:00: 00:00 [place] :[place] (three) Medical times Branch daily as needed for Anxiety. acetaZOLAMI Yes TAKE 1/2 Un nathen DE [...] 2 TIMES A Medical DAY Branch acetaZOLAMI Yes TAKE 1/2 Un nat[place] DE 250 mg 3-02 TABLE BY ity of tablet 00:00: MOUTH 2 TIMES A Medical DAY Branch acetaZOLAMI 2021- Yes TAKE 1/2 Un nathen DE 250 [...] BY ity of tablet 00:00: MOUTH 2 [place] TIMES A Medical DAY Branch acetaZOLAMI 2021-0 Yes TAKE 1/2 Un nathen [place] 250 mg 3-02 TABLE BY ity of tablet 00:00: MOUTH 2 [place] TIMES A Medical DAY Branch acetaZOLAMI 2021-0 Yes TAKE 1/2 Un nathen DE 250 mg 3-02 TABLE BY ity of tablet 00:00: MOUTH 2 [place] TIMES A Medical DAY Branch acetaZOLAMI 2021-0 Yes TAKE 1/2 Un nathen [place] 250 mg 3-02 TABLE BY ity of tablet 00:00: MOUTH 2 [place] TIMES A Medical DAY Branch acetaZOLAMI 2021-0 Yes TAKE 1/2 Un nathen DE 250 mg 3-02 TABLE BY ity of tablet 00:00: MOUTH 2 [place] TIMES A Medical DAY Branch AMLODIPINE 2021-0 Yes [id number] TAKE 1 Un nathen 5 mg tablet 2-14 TABLET BY ity of 00:00: [facility] EVERY DAY Medical Branch AMLODIPINE 2021-0 Yes [id number] TAKE 1 Un nat[place] 5 mg tablet 2-14 TABLET BY ity of 00:00: [facility] EVERY DAY Medical Branch AMLODIPINE 2-0 Yes [id number] TAKE 1 Un nathen 5 mg tablet 2-14 TABLET BY ity of 00:00: [facility] EVERY DAY Medical Branch AMLODIPINE 2-0 Yes [id number] TAKE 1 Un nathen 5 mg tablet 2-14 TABLET BY ity of 00:00: [facility] EVERY DAY Medical Branch AMLODIPINE 2-0 Yes [id number] TAKE 1 Un nathen 5 mg tablet 2-14 TABLET BY ity of 00:00: [facility] EVERY DAY Medical Branch AMLODIPINE 2-0 Yes [id number] TAKE 1 Un nathen 5 mg tablet 2-14 TABLET BY ity of 00:00: [facility] EVERY DAY Medical Branch AMLODIPINE 2-0 Yes [id number] TAKE 1 Un nathen 5 mg tablet 2-14 TABLET BY ity of 00:00: [facility] EVERY DAY Medical Branch AMLODIPINE 2022-0 Yes [id number] TAKE 1 Un nathen 5 mg tablet 2-14 TABLET BY ity of 00:00: [facility] EVERY DAY Medical Branch AMLODIPINE 2-0 Yes [id number] TAKE 1 Un nathen 5 mg tablet 2-14 TABLET BY ity of 00:00: [facility] EVERY DAY Medical Branch AMLODIPINE 2022-0 Yes [id number] TAKE 1 Un nathen 5 mg tablet 2-14 TABLET BY ity of 00:00: [facility] EVERY DAY Medical Branch AMLODIPINE 2022-0 Yes [id number] TAKE 1 Un nathen 5 mg tablet 2-14 TABLET BY ity of 00:00: MOUTH EVERY DAY Medical Branch AMLODIPINE 2021-0 Yes [id number] TAKE 1 Un nathen 5 mg tablet 2-14 TABLET BY ity of 00:00: MOUTH EVERY DAY Medical Branch AMLODIPINE 2021-0 Yes [id number] TAKE 1 Un nathen 5 mg tablet 2-14 TABLET BY ity of 00:00: MOUTH EVERY DAY Medical Branch AMLODIPINE 2021-0 Yes [id number] TAKE 1 Un [place] 5 mg tablet 2-14 TABLET BY ity of 00:00: MOUTH EVERY DAY Medical Branch diazePAM 2020-08- No [id number] 5mg Take 1 Un nathen (VALIUM) 5 [...] Medical unit CpDR Branch pantoprazol 2020-08 Yes [id number] 40mg Take 1 Univers e 40 mg EC 0-04 tablet by ity of tablet 00:00: mouth [place] 00 daily. Medical Branch pantoprazol 2020-08 Yes [id number] 40mg Take 1 Univers e 40 mg EC 0-04 tablet by ity of tablet 00:00: mouth [place] 00 daily. Medical Branch pantoprazol 2020-08 Yes [id number] 40mg Take 1 Univers e 40 mg EC 0-04 tablet by ity of tablet 00:00: mouth [place] 00 daily. [facility] pantoprazol 2020-08 Yes [id number] 40mg Take 1 Univers e 40 mg EC 0-04 tablet by ity of tablet 00:00: mouth [place] 00 daily. [facility] pantoprazol 2020-08 Yes [id number] 40mg Take 1 Univers e 40 mg EC 0-04 tablet by ity of tablet 00:00: mouth [place] 00 daily. [facility] pantoprazol 2020-08 Yes [id number] 40mg Take 1 Univers e 40 mg EC 0-04 tablet by ity of tablet 00:00: mouth [place] 00 daily. [facility] pantoprazol 2020-08 Yes [id number] 40mg Take 1 Univers e 40 mg EC 0-04 tablet by ity of tablet 00:00: mouth [place] 00 daily. [facility] pantoprazol 2020-08 Yes [id number] 40mg Take 1 Univers e 40 mg EC 0-04 tablet by ity of tablet 00:00: mouth [place] 00 daily. [facility] pantoprazol 2020-08 Yes [id number] 40mg Take 1 Univers e 40 mg EC 0-04 tablet by ity of tablet 00:00: mouth [place] 00 daily. [facility] pantoprazol 2020-08 Yes [id number] 40mg Take 1 Univers e 40 mg EC 0-04 tablet by ity of tablet 00:00: mouth [place] 00 daily. [facility] pantoprazol 2020-08 Yes [id number] 40mg Take 1 Univers e 40 mg EC 0-04 tablet by ity of tablet 00:00: mouth [place] 00 daily. [facility] pantoprazol 2020-08 Yes [id number] 40mg Take 1 Univers e 40 mg EC 0-04 tablet by ity of tablet 00:00: mouth [place] 00 daily. [facility] pantoprazol 2020-08 Yes [id number] 40mg Take 1 Univers e 40 mg EC 0-04 tablet by ity of tablet 00:00: mouth [place] 00 daily. [facility] pantoprazol 2020-08 Yes [id number] 40mg Take 1 Univers e 40 mg EC 0-04 tablet by ity of tablet 00:00: mouth [place] 00 daily. Medical Branch predniSONE 0 Yes 5mg Take 5 mg Un nathen 5 mg tablet 4-13 by mouth. ity of 14:13: [address] predniSONE 2020-0 Yes 5mg Take 5 mg Un nathen 5 mg tablet 4-13 by mouth. ity of 14:13: [address] Branch predniSONE 2020-0 Yes 5mg Take 5 mg Un nathen 5 mg tablet 4-13 by mouth. ity of 14:13: [address] Branch predniSONE 2020-0 Yes 5mg Take 5 mg Un nathen 5 mg tablet 4-13 by mouth. ity of 14:13: [address] Branch predniSONE 2020-0 Yes 5mg Take 5 mg Un nathen 5 mg tablet 4-13 by mouth. ity of 14:13: [address] predniSONE 2020-0 Yes 5mg Take 5 mg Un nathen 5 mg tablet 4-13 by mouth. ity of 14:13: [address] Branch predniSONE 2020-0 Yes 5mg Take 5 mg Un nathen 5 mg tablet 4-13 by mouth. ity of 14:13: [address] predniSONE 0 Yes 5mg Take 5 mg Un nathen 5 mg tablet 4-13 by mouth. ity of 14:13: [address] HYDROcodone 0 Yes 1{tbl} Take 1 Un nathen -acetaminop 3-12 tablet by ity of hen 7.5-325 14:37: mouth 3 Shawn as mg per 07 (three) Medical tablet times Branch daily. OXYGEN-AIR Yes by Univers DELIVERY 3-12 Miscellane ity o f SYSTEMS 14:37: ous route. Tripp morgan [address] Branch HYDROcodone Yes 1{tbl} Take 1 Un nathen -acetaminop 3-12 tablet by ity of hen 7.5-325 14:37: mouth 3 Shawn as mg per 07 (three) Medical tablet times Branch daily. OXYGEN-AIR Yes by Univers DELIVERY 3-12 Miscellane ity o f SYSTEMS 14:37: ous route. Tripp morgan [address] Branch HYDROcodone Yes 1{tbl} Take 1 Un nathen -acetaminop 3-12 tablet by ity of hen 7.5-325 14:37: mouth 3 Shawn as mg per 07 (three) Medical tablet times Branch daily. OXYGEN-AIR Yes by Univers DELIVERY 3-12 Miscellane ity o f SYSTEMS 14:37: ous route. Tripp morgan [address] Branch HYDROcodone Yes 1{tbl} Take 1 Un nathen -acetaminop 3-12 tablet by ity of hen 7.5-325 14:37: mouth 3 Shawn as mg per 07 (three) Medical tablet times Branch daily. OXYGEN-AIR Yes by Univers DELIVERY 3-12 Miscellane ity o f SYSTEMS 14:37: ous route. Tripp [address] Branch HYDROcodone Yes 1{tbl} Take 1 Un nathen -acetaminop 3-12 tablet by ity of hen 7.5-325 14:37: mouth 3 Shawn as mg per 07 (three) Medical tablet times Branch daily. OXYGEN-AIR Yes by Univers DELIVERY 3-12 Miscellane ity o f SYSTEMS 14:37: ous route. Tripp morgan [place] [address] Medical Branch HYDROcodone Yes 1{tbl} Take 1 Un nathen -acetaminop 3-12 tablet by ity of hen 7.5-325 14:37: mouth 3 Shawn as mg per 07 (three) Medical tablet times Branch daily. OXYGEN-AIR Yes by Univers DELIVERY 3-12 Miscellane ity o f SYSTEMS 14:37: ous route. Tripp morgan [place] [address] Medical Branch HYDROcodone Yes 1{tbl} Take 1 Un nathen -acetaminop 3-12 tablet by ity of hen 7.5-325 14:37: mouth 3 Shawn as mg per 07 (three) Medical tablet times Branch daily. OXYGEN-AIR Yes by Univers DELIVERY 3-12 Miscellane ity o f SYSTEMS 14:37: ous route. Tripp morgan [address] Branch HYDROcodone Yes 1{tbl} Take 1 Un nathen -acetaminop 3-12 tablet by ity of hen 7.5-325 14:37: mouth 3 Shawn as mg per 07 (three) Medical tablet times Branch daily. OXYGEN-AIR Yes by Univers DELIVERY 3-12 Miscellane ity o f SYSTEMS 14:37: ous route. Tripp morgan [place] [address] Medical Branch SPIRIVA Yes INHALE 2 Univer [...] DAY Med ical on Mist Branch promethazin 2018-0 Yes 5mL Take 5 [...] mg/5 mL 38 Medical syrup Branch TIOTROPIUM 0 Yes Inhale. Univ ers [...] INHALE) Branch MOMETASONE 2019-0 Yes Use in Unive rs FUROATE 7-17 [...] nostril. [place] NASAL) 14 Medical Branch buprenorphi 2018- Yes APPLY ONE U nivers ne 10 6-05 PATCH TO ity of mcg/hour 00:00[place] patch 00 A WEEK FOR Medical 28 DAYS Branch buprenorphi 0 Yes APPLY ONE U nivers ne 10 [...] WEEK FOR Medical 28 DAYS Branch buprenorphi 2018- Yes APPLY ONE U nivers ne 10 6-05 PATCH TO ity of mcg/hour 00:00: [place] patch 00 A WEEK FOR Medical 28 DAYS Branch promethazin Yes 5mL Take [address] [facility]-codeine 4-30 by mouth [facility] (PHENERGAN 10:34: every 4 [facility] WITH 04 (four) Center CODEINE) hours as 6.25-10 needed for mg/5 mL Cough. syrup gabapentin 2019-0 Yes 100mg QD Take [address] (NEURONTIN) 4-30 mg by [facility] 100 MG 10:34: mouth Medical capsule 04 daily. [place] OXYGEN-AIR 2018-[address] [facility] DELIVERY 4-30 [facility]ane [facility] SYSTEMS 10:34: ous route. [place] [id number] Center aspirin 81 2019- Yes 81mg QD Take [address] MG EC 4-30 by mouth [facility] tablet 10:34: daily. Medical Center ALPRAZolam 0 Yes .5mg Take 0.5 [facility] [...] Luke s 5 MG tablet 10:34: daily. [place] [address] Center budesonide- 2019-0 Yes 2{puff} Q.5D Inhale [address] formoterol 4-30 puffs by [facility]ukes (SYMBICORT) 10:34: mouth via M edical 160-4.5 04 inhaler 2 Center mcg/actuati (two) on inhaler times daily. amLODIPine 2019-0 Yes 5mg QD Take [address] (NORVASC) 5 4-30 by mouth Luke s MG tablet 10:34: daily. Medica l 04 Center tiotropium 2019-0 Yes 18ug Q.5D Inhale 18 [facility] [...] (15 mL) 04 needed. Center solution docusate 20190 Yes 200mg Take [address] [facility] [address] sodium 4-30 mg by [facility]ukes (COLACE) 10:34: mouth Medical 100 MG 04 daily as Center capsule needed for Constipati on. psyllium 2019-0 Yes .52g Take 0.[address] 0.52 gram 4-30 g by mouth Luke s capsule 10:34: every 7 Medical 04 days. Center pantoprazol 20190 Yes 20mg QD Take [address] [facility] e 4-30 by mouth [facility] (PROTONIX) 10:34: daily. Medic al 20 MG 04 Center tablet cetirizine 20190 Yes 10mg Take [address] (ZYRTEC) 10 4-30 by mouth Luke s MG tablet 10:34: daily as Medi josé miguel 04 needed for Center Allergies. promethazin 2019-0 Yes 5mL Take [address] [facility] e-codeine 4-30 by mouth [facility] (PHENERGAN 10:34: every 4 Medi josé miguel WITH 04 (four) Center CODEINE) hours as 6.25-10 needed for mg/5 mL Cough. syrup gabapentin 2019-0 Yes 100mg QD Take [address] (NEURONTIN) 4-30 mg by [facility] 100 MG 10:34: mouth Medical capsule 04 daily. Center OXYGEN-AIR [address] [facility] DELIVERY 4-30 Miscellane [facility] SYSTEMS 10:34: ous route. [facility] 04 [place] aspirin 81 2019-0 Yes 81mg QD Take [address] MG EC 4-30 by mouth [facility]ukes tablet 10:34: daily. Medical 04 Center ALPRAZolam 2018- Yes .5mg Take 0.5 [facility] [...] Luke s 5 MG tablet 10:34: daily. [address] budesonide- 2018-0 Yes 2{puff} Q.5D Inhale [address] formoterol 4-30 puffs by [facility]ukes (SYMBICORT) 10:34: mouth via M edical 160-4.5 04 inhaler 2 [place] mcg/actuati (two) on inhaler times daily. amLODIPine 0 Yes 5mg QD Take [address] (NORVASC) 5 4-30 by mouth Luke s MG tablet 10:34: daily. Medica l [address] [place] [address] tiotropium 0 Yes 18ug Q.5D Inhale 18 [...] Center capsule needed for Constipati on. psyllium 2019-0 Yes .52g Take 0.[address] 0.52 [...] miguel 04 needed for Center Allergies. promethazin 2019 Yes 5mL Take [address] [facility] e-codeine 4-30 by mouth [facility]ukes (PHENERGAN 10:34: every 4 Medi josé miguel WITH 04 (four) Center CODEINE) hours as 6.25-10 needed for mg/5 mL Cough. syrup gabapentin 2018-0 Yes 100mg QD Take [address] (NEURONTIN) 4-30 mg by [facility] 100 MG 10:34: mouth Medical capsule 04 daily. Center OXYGEN-AIR [address] [facility] DELIVERY 4-30 Miscellane [facility] SYSTEMS 10:34: ous route. Medi josé miguel MISC 04 Center aspirin 81 20190 Yes 81mg QD Take [address] MG EC 4-30 by mouth [facility] tablet 10:34: daily. Medical 04 Center ALPRAZolam 0 Yes .5mg Take 0.[address] (XANAX) 0.5 4-30 mg by [facility]ukes MG tablet 10:34: mouth 3 Medic al 04 (three) Center times daily as needed for Anxiety. aspirin 81 Yes 81mg QD Take [address] MG EC 4-30 by mouth [facility]ukes tablet 10:34: daily. Medical 04 Center ALPRAZolam 0 Yes .5mg Take 0.[address] (XANAX) 0.5 4-30 mg by [facility]ukes MG tablet 10:34: mouth 3 Medic al 04 (three) Center times daily as needed for Anxiety. albuterol 20190 Yes 2.5mg Take 2.[address] (PROVENTIL) 4-30 mg by [facility]ukes 2.5 mg/0.5 10:34: nebulizati M edical mL Nebu 04 on every 6 Center nebulizer (six) solution hours as needed. predniSONE 0 Yes 5mg QD Take [address] (DELTASONE) 4-30 by mouth Luke s 5 MG tablet 10:34: daily. Medi josé miguel 04 Center budesonide- 2018-0 Yes 2{puff} Q.5D [...] every 7 Cente r PTWK days. lactulose 2018-0 Yes 20g Take [address] (CHRONULAC) 4-30 by mouth Luke s 10 gram/15 10:34: daily as Med ical mL (15 mL) 04 needed. Center solution docusate 0 Yes 200mg Take [address] sodium 4-30 mg by [facility]ukes (COLACE) 10:34: mouth Medical 100 MG 04 daily as Center capsule needed for Constipati on. albuterol 2019-0 Yes 2.5mg Take 2.[address] (PROVENTIL) 4-30 mg by Lukes 2.5 mg/0.5 10:34: nebulizati M edical mL Nebu 04 on every 6 Center nebulizer (six) solution hours as needed. psyllium 2019- Yes .52g Take 0.52 [facility] [...] Luke s MG tablet 10:34: daily as [facility] josé miguel 04 needed for Center Allergies. promethazin 2019 Yes 5mL Take [address] e-codeine 4-30 by mouth [facility] (PHENERGAN 10:34: every 4 [facility] WITH 04 (four) Center CODEINE) hours as 6.25-10 needed for mg/5 mL Cough. syrup gabapentin 2019-0 Yes 100mg QD Take [address] (NEURONTIN) 4-30 mg by [facility] 100 MG 10:34: mouth Medical capsule 04 daily. Center OXYGEN-AIR 2018-[address] [facility] DELIVERY 4-30 Miscellane [facility] SYSTEMS 10:34: ous route. [facility] MISC 04 Center predniSONE 2019-0 Yes 5mg QD Take [address] (DELTASONE) 4-30 by mouth Luke s 5 MG tablet 10:34: daily. [facility] 04 Center budesonide- 2019-0 Yes 2{puff} Q.5D Inhale [address] formoterol 4-30 puffs by [facility]ukes (SYMBICORT) 10:34: mouth via M edical 160-4.5 04 inhaler 2 Center mcg/actuati (two) on inhaler times daily. amLODIPine 2019-0 Yes 5mg QD Take [address] (NORVASC) 5 4-30 by mouth Luke s MG tablet 10:34: daily. Medica l 04 Center tiotropium 2019- Yes 18ug Q.5D Inhale [address] (SPIRIVA) 4-30 mcg by [facility]ukes 18 mcg 10:34: mouth via Medica l inhalation 04 inhaler 2 Cent er capsule (two) times daily. HYDROcodone 2019- Yes 1{tbl} Take [address] [...] josé miguel 04 needed for Center Allergies. Butrans Butrans Yes Na Guido 1 patch to Common skin [facility] Lactulose Lactulose Yes Na Guido 15 ml C ommon [facility] Lopressor Lopressor Yes Na Guido 1 tablet Common with food [facility] Spiriva Spiriva Yes Na Guido 2 puffs Com mon Respimat Respimat [facility] Aspirin 81 Aspirin 81 Yes Na Guido 1 tablet Common [facility] Zyrtec Zyrtec Yes Na Guido 1 tablet Comm on Allergy Allergy [facility] [place] Yes Na Guido 1 tablet Common as needed [facility] Albuterol-I Albuterol-I Yes Na Guido not Common pratropium pratropium defined [facility] Alprazolam Alprazolam Yes Na Guido 1 tablet Common [facility] Symbicort Symbicort Yes Na Guido 2 puffs Common [facility] Norvasc Norvasc Yes Na Guido 1 tablet Co mmon [facility] Protonix Protonix Yes Na Guido 1/2 tablet [facility] PredniSONE PredniSONE Yes Na Guido 1 tablet [facility] Combivent Combivent Yes Na Guido not Co mmon defined [facility] Butrans 10 Butrans 10 No 1{patch [...] QD Norvasc 5 MG MG t} MG [place] No 1{table QID [place] 7.5-325 MG 7.5-325 MG t_as_ne 7.5-325 MG [...] Status Comments Sour e [facility] Completed [facility] 00:00:00 [facility] Remdesivir 2022-05-04 Completed University of 00:00:00 [facility] Remdesivir 2022-05-04 Completed University of 00:00:00 [facility] Remdesivir 2022-05-04 Completed University of 00:00:00 [facility] Remdesivir 2022-05-04 Completed University of 00:00:00 [facility] Remdesivir 2022-05-04 Completed University of 00:00:00 [facility] Remdesivir 2022-05-03 Completed University of 00:00:00 [facility] Remdesivir 2022-05-03 Completed University of 00:00:00 [facility] Remdesivir 2022-05-03 Completed University of 00:00:00 [facility] Remdesivir 2022-05-03 Completed University of 00:00:00 [facility] Remdesivir 2022-05-03 Completed University of 00:00:00 [facility] Remdesivir 2022-05-03 Completed University of 00:00:00 [facility] Remdesivir 2022-05-02 Completed University of 00:00:00 [facility] Remdesivir 2022-05-02 Completed University of 00:00:00 [facility] Remdesivir 2022-05-02 Completed University of 00:00:00 [facility] Remdesivir 2022-05-02 Completed University of 00:00:00 [facility] Remdesivir 2022-05-02 Completed University of 00:00:00 [facility] Remdesivir 2022-05-02 Completed University of 00:00:00 [facility] Remdesivir 2022-05-01 Completed University of 00:00:00 [place] [facility] Remdesivir 2022-05-01 Completed University of 00:00:00 [place] [facility] Remdesivir 2022-05-01 Completed University of 00:00:00 [place] [facility] Remdesivir 2022-05-01 Completed University of 00:00:00 [place] [facility] Remdesivir 2022-05-01 Completed University of 00:00:00 [place] [facility] Remdesivir 2022-05-01 Completed University of 00:00:00 [place] [facility] Remdesivir 2022-04-30 Completed University of 00:00:00 [place] [facility] Remdesivir 2022-04-30 Completed University of 00:00:00 [place] [facility] Remdesivir 2022-04-30 Completed University of 00:00:00 [facility] Remdesivir 2022-04-30 Completed University of 00:00:00 [facility] Remdesivir 2022-04-30 Completed University of 00:00:00 [facility] Remdesivir 2022-04-30 Completed University of 00:00:00 [facility] SARS-COV-2 COVID-19 2021-08-30 Completed Unive rsity of [...] rsity of MODERNA 0.25ML 00:00:00 [facility] josé miguel BOOSTER VACCINE Branch Kenalog Kenalog 2018-11-08 Completed [facility] - (Triamcinolone) (Triamcinolone) 13:04:00 [facility] Vital Signs Vital Name Observation Time Observation Value Comments Source Systolic blood 2022-05-21 19:06:00 159 mm[Hg] Univer sity of pressure [facility] Diastolic blood 2022-05-21 19:06:00 73 mm[Hg] Unive rsity of pressure [facility] Heart rate 2022-05-21 19:05:00 109 /min [facility] Body temperature 2022-05-21 19:05:00 [facility].5 [facility] 2022-05-21 19:05:00 154.9 cm [facility] Body weight 2022-05-21 19:05:00 63.05 kg [facility] BMI 2022-05-21 19:05:00 26.26 kg/m2 [facility] Oxygen saturation in 2022-05-21 19:05:00 96 /min University of Arterial blood by [facility] Pulse oximetry Branch Heart rate 2022-05-04 20:35:00 107 /min [facility] [place] [facility] Respiratory rate 2022-05-04 20:35:00 18 /min Univ ersity of [place] [facility] Oxygen saturation in 2022-05-04 20:35:00 99 /min University of Arterial blood by [facility] Pulse oximetry Branch Systolic blood 2022-05-04 17:00:00 121 mm[Hg] Univer sity of pressure [place] [facility] Diastolic blood 2022-05-04 17:00:00 75 mm[Hg] Unive rsity of pressure [place] [facility] Body temperature 2022-05-04 17:00:00 36.5 Odalys Univ ers[facility] [place] [facility] Body weight 2022-05-04 10:05:00 65.499 kg [facility] [place] [facility] BMI 2022-05-04 10:05:00 27.28 kg/m2 [facility] [place] [facility] Body height 2022-04-30 13:07:00 154.9 cm [facility] [place] [facility] Heart rate 2022-04-23 22:58:00 104 /min [facility] [place] [facility] Respiratory rate 2022-04-23 22:58:00 18 /min Univ ersity [facility] [place] [facility] Oxygen saturation in 2022-04-23 22:58:00 100 /min University of Arterial blood by [facility] Pulse oximetry Branch Systolic blood 2022-04-23 22:26:00 130 mm[Hg] Univer sity of pressure [place] [facility] Diastolic blood 2022-04-23 22:26:00 81 mm[Hg] Unive rsity of pressure [place] [facility] Body temperature 2022-04-23 22:26:00 37.22 Odalys Univ ers[facility] [place] [facility] Body height 2022-04-23 22:26:00 154.9 cm [facility] [place] [facility] Body weight 2022-04-23 22:26:00 64.411 kg [facility] [place] [facility] BMI 2022-04-23 22:26:00 26.83 kg/m2 [facility] [place] [facility] Systolic blood 2022-01-10 18:39:00 164 mm[Hg] Univer sity of pressure [place] [facility] Diastolic blood 2022-01-10 18:39:00 82 mm[Hg] [facility] [place] Heart rate 2022-01-10 18:38:00 108 /min [facility] Body temperature 2022-01-10 18:38:00 37.33 Odalys [facility] Body height 2022-01-10 18:38:00 154.9 cm [facility] Body weight 2022-01-10 18:38:00 65.318 kg [facility] BMI 2022-01-10 18:38:00 27.21 kg/m2 [facility] Oxygen saturation in 2022-01-10 18:38:00 95 /min [facility] Arterial blood by [facility] Pulse oximetry [place] Procedures Procedure Date / Time Performing Clinician Source Performed EXTERNAL PROVIDER RECORDS 2022-07-15 06:01:00 Doctor Unassigned, [facility] [place] [facility] MAGNESIUM 2022-05-04 10:03:00 Gil [facility] BASIC METABOLIC PANEL 2022-05-04 10:03:00 [facility] (NA, K, CL, CO2, GLUCOSE, Medica l Branch BUN, CREATININE, CA) ACUTE CARE VENOUS BLOOD 2022-05-04 10:03:00 Gil [facility] ACUTE CARE VENOUS BLOOD 2022-05-03 15:18:00 Gil [facility] MAGNESIUM 2022-05-03 15:14:00 Gil [facility] BASIC METABOLIC PANEL 2022-05-03 15:14:00 [facility] (NA, K, CL, CO2, GLUCOSE, Medica l Branch BUN, CREATININE, CA) MAGNESIUM 2022-05-02 09:31:00 Prakash Berg [facility] BASIC METABOLIC PANEL 2022-05-02 09:31:00 Prakash Berg [facility] (NA, K, CL, CO2, GLUCOSE, Medica l Branch BUN, CREATININE, CA) CBC WITH DIFF 2022-05-02 09:31:00 Prakash Berg [facility] ACUTE CARE VENOUS BLOOD 2022-05-02 09:28:00 Edionwe, [facility] MAGNESIUM 2022-05-01 09:20:00 Prakash Berg [facility] BASIC METABOLIC PANEL 2022-05-01 09:20:00 Prakash Berg [facility] (NA, K, CL, CO2, GLUCOSE, Medica l Branch BUN, CREATININE, CA) ACUTE CARE VENOUS BLOOD 2022-05-01 09:20:00 Deedee [facility] CBC WITH DIFF 2022-05-01 09:20:00 Prakash Berg [facility] MRSA / MSSA SCREEN BY 2022-04-30 22:35:00 Jayden Cordero [facility] PCR, [facility] ACUTE CARE ARTERIAL BLOOD 2022-04-30 21:28:[address] [facility] ACUTE CARE ARTERIAL BLOOD 2022-04-30 15:47:[address] [facility] COVID-19 (ID NOW RAPID 2022-04-30 11:56:00 Mariposa Craig [facility] TESTING) Medical Branch LAB ONLY COVID 2022-04-30 11:56:00 Mariposa Craig [facility] CRITICAL CARE 2022-04-30 11:54:13 Mariposa Craig [facility] ACUTE CARE ARTERIAL BLOOD 2022-04-30 11:35:[address] [facility] XR CHEST 1 VW 2022-04-30 10:37:04 Mariposa Craig [facility] TROPONIN I 2022-04-30 10:13:00 Mariposa Craig [facility] BASIC METABOLIC PANEL 2022-04-30 10:13:00 Mariposa Craig [facility] (NA, K, CL, CO2, GLUCOSE, Medica l Branch BUN, CREATININE, CA) CBC WITH DIFF 2022-04-30 10:13:00 Mariposa Craig [facility] HB ECG ROUTINE & RHYTHM 2022-04-30 09:46:40 Mariposa Craig [facility] EMERGENCY DEPARTMENT 2022-04-30 05:01:00 Doctor Unassigned, [facility] DOCUMENTS [place] [facility] TROPONIN I 2022-04-23 22:38:00 Sampson, [facility] COMP. METABOLIC PANEL 2022-04-23 22:38:00 Jeff Sampson [facility] ([id number]) Medical Branch CBC WITH DIFF 2022-04-23 22:38:00 Sampson, [facility] N-TERMINAL PRO-BNP 2022-04-23 22:38:00 Singer [facility] Medical Branch HOME HEALTH - OTHER 2022-02-11 05:01:00 Doctor Norman [facility] [place] [facility] HOME HEALTH - OTHER 2022-02-07 05:01:00 Doctor Norman [facility] [place] [facility] HOME HEALTH - OTHER 2022-02-03 05:01:00 Doctor Norman [facility] [place] [facility] HOME HEALTH - OTHER 2022-01-17 05:01:[address] [facility] [place] [facility] HOME HEALTH - OTHER 2021-12-29 05:01:[address] [facility] [address] [facility] [place] [facility] HOME HEALTH - OTHER 2021-12-20 05:01:[address] [facility] [place] [facility] Plan of Care Planned Activity Planned Date Details Comments Source Future Scheduled 2020-05-[address] [facility] Test 00:00:00 (#1) [code = [facility] INFLUENZA VACCINE (#1)] Future Scheduled [address] [facility] Test 00:00:00 (procedure) [code = [facility] 07830882] Future Scheduled [address] [facility] 00:00:00 malignant neoplasm Medical C enter of cervix (procedure) [code = 559127653] Future Scheduled [address] [facility] Test 00:00:00 malignant neoplasm Medical C enter of breast (procedure) [code = 112619825] Future Scheduled [address] [facility] Test 00:00:00 malignant neoplasm Medical C enter of colon (procedure) [code = 756104810] Encounters Start End Encounter Admission Attending Care Care Encounter Source Date/Time Date/Time Type Type Clinicians Facility Department ID 2021-09-25 Outpatient Chantel Guido [facility] [id number] Common 11:46:50 [id number] [facility] 2021-09-25 Outpatient Chantel Guido [facility] [id number] 2 Common 11:44:44 [id number] [facility] 2022-07-15 2022-07-15 Orders Doctor DONNA [id number] Univers 00:00:00 00:00:00 Only Unassigned, JONATHAN [id number] [facility]y [place] [facility] [id number] Shawn as [phone] [address] 2022-06-18 2022-06-18 Outpatient [facility] [id number] Univers 13:30:00 13:30:00 DAMIAN cristela [facility] 2022-05-21 2022-05-21 [facility] 1.2.840.114 [id number] Univers 14:30:00 15:00:00 Visit [facility] 350.1.13.10 it y of [place] 4.2.7.2.686 Shawn as MICAH?BLEA [phone] [address] MEDICAL OFFICE BUILDING 2022-05-21 2022-05-21 Outpatient Matthew BILLY [facility] [id number] Univers 14:30:00 14:30:00 DAMIAN cristela [facility] 2022-05-19 2022-05-19 Outpatient Matthew BILLY [facility] [id number] Univers 14:30:00 14:30:00 DAMIAN [facility] 2022-05-07 2022-05-07 Transition RADHA Loving 1.2.840.114 [id number] Univers 00:00:00 00:00:00 of Care Harry ANDERSON 350.1.13.10 ity of [place].7.2.[place] [phone] [facility] [address] 2022-04-30 2022-05-04 Inpatient X FRANCOIS [facility] [id number] Univers 04:39:00 16:30:00 MARIPOSA brooks of [facility] 2022-04-30 2022-05-04 [facility] Mariposa Craig [facility] 1.2.840.11 [id number] Univers 04:39:00 16:30:00 Encounter Jayden Cordero 350.1.13.10 ity of [place] 4.2.7.2.686 [facility] [phone] [facility] [address] 2022-04-23 2022-04-23 Emergency [facility] [id number] Univers 17:28:00 19:04:00 JEFF bashircristela [facility] 2022-04-23 2022-04-23 Emergency [facility] 1.2.382.438 [id number] Univers 17:28:00 19:04:00 Jeff BUSBY 350.1.13.10 i ty of [place] 4.2.7.2.686 [facility] [phone] [facility] [address] 2022-02-11 2022-02-11 Orders Doctor DONNA 1.2.840.114 [id number] Univers 00:00:00 00:00:00 Only Unassigned, JONATHAN 350.1.13.10 ity of [place] [facility] 4.2.7.2.686 Shawn as [phone] [facility] [address] [place] 2022-02-07 2022-02-07 Orders Doctor THOMPSON 1.2.840.114 [id number] Univers 00:00:00 00:00:00 Only Unassigned, JONATHAN 350.1.13.10 ity of [place] [facility] 4.2.7.2.686 Shawn as [phone] [facility] [address] 2022-02-03 2022-02-03 Orders Doctor THOMPSON 1.2.840.114 [id number] Univers 00:00:00 00:00:00 Only Unassigned, JONATHAN 350.1.13.10 ity of [place] [facility] 4.2.7.2.686 Shawn as [phone] [facility] [address] [place] 2022-01-17 2022-01-17 Orders Doctor DONNA 1.2.840.114 [id number] Univers 00:00:00 00:00:00 Only Unassigned, JONATHAN 350.1.13.10 ity of [place] [facility] 4.2.7.2.686 Shawn as [phone] [address] 2022-01-10 2022-01-10 Outpatient [facility] [id number] Univers 13:00:00 13:55:59 [facility] 2022-01-10 2022-01-10 Office [facility] 1.2.840.114 [id number] Univers 13:00:00 13:15:00 Visit [facility] 350.1.13.10 it y of [place] [facility] 4.2.7.2.686 Shawn as MICAH?BLEA [phone] [address] MEDICAL OFFICE [facility] 2022-01-10 2022-01-10 Outpatient [facility] [id number] Univers 13:00:00 13:00:00 [facility] 2021-12-29 2021-12-29 Orders Doctor DONNA 1.2.840.114 [id number] Univers 00:00:00 00:00:00 Only Unassigned, JONATHAN 350.1.13.10 ity of [place] [facility] 4.2.7.2.686 Shawn as [phone] [address] 2021-12-20 2021-12-20 Orders Doctor DONNA 1.2.840.114 [id number] Univers 00:00:00 00:00:00 Only Unassigned, JONATHAN 350.1.13.10 ity of [place] [facility] 4.2.7.2.686 Shawn as [phone] [address] 2021-12-11 2021-12-11 Outpatient [facility] [id number] Univers 11:00:00 11:51:30 [facility] 2021-12-11 2021-12-11 Office [facility] 1.2.840.114 [id number] Univers 11:00:00 11:15:00 Visit [facility] 350.1.13.10 it y of [place] 4.2.7.2.686 Shawn as MICAH?BLEA [phone] [address] OFFICE BUILDING 2021-12-11 2021-12-11 Outpatient R WENCESLAO [facility] [id number] Univers 11:00:00 11:00:00 DAMIAN ity of [facility] 2021-12-05 2021-12-05 Telephone [facility] 1.2.840.114 [id number] Univers 00:00:00 00:00:00 [facility] 350.1.13.10 it y of [place] 4.2.7.2.686 Shawn as MICAH?BLEA [phone] [address] OFFICE [facility] 2021-10-14 2021-10-14 [facility] 1.2.840.114 [id number] Univers 00:00:00 00:00:00 [facility] 350.1.13.10 it y of [place] 4.2.7.2.686 Shawn as PROFESSIO [phone] [address] OFFICE [facility] ONE 2021-09-11 2021-09-11 Orders Doctor DONNA 1.2.840.114 [id number] Univers 00:00:00 00:00:00 Only Unassigned, JONATHAN 350.1.13.10 ity of [place] [facility] 4.2.7.2.686 Shawn as [phone] [address] 2021-09-03 2021-09-03 [facility] 1.2.840.114 [id number] Univers 00:00:00 00:00:00 [facility] 350.1.13.10 it y of [place] 4.2.7.2.686 Shawn as PROFESSIO [phone] [address] ONE 2021-08-30 2021-08-30 Outpatient [facility] [id number] Univers 13:00:00 13:52:57 DAMIAN ity [facility] 2021-08-30 2021-08-30 Office [facility] 1.2.840.114 [id number] Univers 13:00:00 13:15:00 Visit [facility] 350.1.13.10 it y of [place] 4.2.7.2.686 Shawn as MICAH?BLEA [phone] [address] MEDICAL OFFICE BUILDING 2021-08-30 2021-08-30 Outpatient R WENCESLAO [facility] [id number] Univers 13:00:00 13:00:00 [facility] 2021-08-28 2021-08-28 Outpatient R WENCESLAO [facility] [id number] Univers 15:30:00 15:30:00 [facility] 2021-08-28 2021-08-28 Outpatient R WENCESLAO [facility] [id number] Univers 15:30:00 15:30:00 [facility] 2021-08-28 2021-08-28 Outpatient R WENCESLAO [facility] [id number] Univers 15:30:00 15:30:00 [facility] 2021-08-28 2021-08-28 Outpatient R WENCESLAO [facility] [id number] Univers 15:30:00 15:30:00 [facility] 2021-08-26 2021-08-26 Telephone [facility] 1.2.840.114 [id number] Univers 00:00:00 00:00:00 [facility] 350.1.13.10 it y of [place] 4.2.7.2.686 Shawn as MICAH?BLEA [phone] [address] MEDICAL OFFICE BUILDING 2021-07-30 2021-07-30 Outpatient ZIGGY DAVIS [facility] [id number] Univers 13:30:00 13:30:00 ZIGGY MEJIA [facility] 2021-07-30 2021-07-30 Outpatient R ZIGGY MEJIA [facility] [id number] Univers 13:30:00 13:30:00 ZIGGY MEJIA [facility] 2021-07-30 2021-07-30 Outpatient R ZIGGY MEJIA [facility] [id number] Univers 13:30:00 13:30:00 ZIGGY MEJIA cristela [facility] 2021-07-30 2021-07-30 Outpatient R ZIGGY MEJIA [facility] [id number] Univers 13:30:00 13:30:00 ZIGGY MEJIA cristela [facility] 2021-07-18 2021-07-18 Outpatient R IZZY TSAI [facility] [id number] Univers 10:00:00 10:00:00 ity [facility] 2021-07-15 2021-07-15 [facility] 1.2.840.114 [id number] Univers 00:00:00 00:00:00 [facility] HEALTH 350.1.13.10 it y of [place] 4.2.7.2.686 Shawn as MICAH?BLEA [phone] [address] OFFICE [facility] 2021-07-10 2021-07-10 Telephone [facility] 1.2.840.114 [id number] Univers 00:00:00 00:00:00 [facility] 350.1.13.10 it y of [place] 4.2.7.2.686 Shawn as MICAH?BLEA [phone] [address] 2021-07-09 2021-07-09 Telephone [facility] 1.2.840.114 [id number] Univers 00:00:00 00:00:00 [facility] 350.1.13.10 it y of [place] 4.2.7.2.686 Shawn as MICAH?BLEA [phone] [address] 2021-06-03 2021-06-03 [facility] 1.2.840.114 [id number] Univers 00:00:00 00:00:00 [facility] Health 350.1.13.10 it y of [place] 4.2.7.2.686 Shawn as Micah?Blea [phone] [address] 2021-06-03 2021-06-03 Telephone [facility] 1.2.840.114 [id number] Univers 00:00:00 00:00:00 Ibrahima Busby 350.1.13.10 ity of [place] [phone] Al brandon [facility] Branch [facility] 2021-05-27 2021-05-27 Telephone [facility] 1.2.840.114 [id number] Univers 00:00:00 00:00:00 Ibrahima Bragg [facility] 350.1.13.10 ity of [place] 4.2.7.2.686 Shawn as Micah?Blea [phone] Al dic[address] Medical Office [facility] 2021-05-24 2021-05-24 [facility] 1..164.744 [id number] Univers 13:57:39 23:59:00 Encounter Ibrahima Busby 350.1.13.10 [place] [id number] [facility] [address] [place] 2021-05-24 2021-05-24 Outpatient R IBRAHIMA SOMMER [facility] [id number] Univers 13:56:37 13:56:37 SAUDIBRAHIMA Nance [facility] 2021-05-24 2021-05-24 Outpatient R IBRAHIMA SOMMER [facility] [id number] Univers 13:56:37 13:56:37 SAUD IBRAHIMA brooks [facility] 2021-05-24 2021-05-24 [facility] 1..[id number] Univers 13:56:37 13:56:37 Encounter Ibrahima Busby 350.1.13.10 [place]y of [place].2.[place] [phone] [facility] [address] [place] 2021-05-13 2021-05-13 Outpatient R IBRAHIMA SOMMER [facility] [id number] Univers 00:00:00 00:00:00 SAUD [facility] 2021-05-03 2021-05-03 [facility] 1.2.840.114 [id number] Univers 00:00:00 00:00:00 [facility] 350.1.13.10 it y of [place] 4.2.7.2.686 Shawn as Professio [phone] [facility] 044 [facility] One 2021-05-03 2021-05-03 Refill [facility] 1.2.840.114 [id number] Univers 00:00:00 00:00:00 [facility] 350.1.13.10 it y of [place] 4.2.7.2.686 Shawn as Professio [phone] [address] One 2021-04-23 2021-04-23 Technical Sales Advisor Lab, G[facility] 1.2.840.1 [id number] Univers 13:30:12 13:45:12 Visit Saud Ibrahima [facility] 350.1.13. 10 ity of [place] 4.2.7.2.686 Shawn as Micah?Blea [phone] [facility] john 353 [facility] Office [facility] 2021-04-23 2021-04-23 Office Saud [facility] 1.2.840.114 [id number] Univers 12:51:35 13:28:39 Visit Ibrahima [facility] 350.1.13.10 ity of [place] 4.2.7.2.686 Shawn as Micah?Blea [phone] [facility] 092 [facility] Office [facility] 2021-04-23 2021-04-23 Outpatient IBRAHIMA HERRERA [facility] [id number] Univers 11:20:00 11:20:00 IBRAHIMA SOMMER [facility] 2021-04-16 2021-04-16 Outpatient IBRAHIMA HERRERA [facility] [id number] Univers 10:40:00 10:40:00 IBRAHIMA SOMMER [facility] 2021-03-28 2021-03-28 Outpatient IBRAHIMA HERRERA [facility] [id number] Univers 11:00:00 11:00:00 IBRAHIMA SOMMER [facility] 2021-03-22 2021-03-22 [facility] 1.2.840.114 [id number] Univers 00:00:00 00:00:00 [facility] 350.1.13.10 it y of [place] 4.2.7.2.686 Shawn as Professio [phone] [address] Office [facility] One 2021-03-22 2021-03-22 [facility] 1.2.840.114 [id number] 00:00:00 00:00:00 [facility] 350.1.13.10 [place] 4.2.7.2.686 Professio [phone] [place] [address] Office [facility] One 2021-03-21 2021-03-21 [facility] 1.2.840.[id number] [facility] 00:00:00 00:00:00 [facility] 350.1.13.10 it y of [place] 4.2.7.2.686 Shawn as Professio [phone] [address] Office [facility] One 2021-03-21 2021-03-21 [facility] 1.2.840.114 [id number] 00:00:00 00:00:00 [facility] 350.1.13.10 [place] 4.2.7.2.686 Professio [phone] [place] [address] Office Building One 2021-02-26 2021-02-26 [facility] 1.2.318.742 [id number] Univers 16:37:25 23:59:00 Encounter Ibrahima Busby 350.1.13.10 [place] of [place] [phone] [facility] [address] [place] 2021-02-26 2021-02-26 [facility] 1.2.840.114 [id number] Univers 16:36:33 16:36:33 Encounter Zana Busby 350.1.13.10 ity of [place] [phone] [facility] [address] 2021-02-26 2021-02-26 [facility] 1.2.831.420 [id number] Univers 16:36:21 16:36:21 Encounter Ibrahima Bragg rPaneeth 350.1.13.10 ity [facility] 4.2.7.2.[place] [phone] [facility] [address] [place] 2021-02-26 2021-02-26 Outpatient R IBRAHIMA SOMMER [facility] [id number] Univers 15:00:00 15:57:07 IBRAHIMA SOMMER cristela [facility] 2021-02-26 2021-02-26 Outpatient IBRAHIMA HERRERA [facility] [id number] Univers 15:00:00 15:57:07 IBRAHIMA SOMMER cirstela [facility] 2021-02-26 2021-02-26 Outpatient IBRAHIMA HERRERA [facility] [id number] Univers 15:00:00 15:57:07 IBRAHIMA SOMMER [facility] 2021-02-26 2021-02-26 [facility] 1.2.840.114 [id number] Univers 14:45:21 15:57:07 Visit Ibrahima Busby 350.1.13.10 ity [facility] 4.2.7.2.686 [facility] [phone] Al dical [facility] 2021-02-26 2021-02-26 [facility] 1.2.840.114 [id number] 14:45:21 15:57:07 Visit Ibrahima Busby 350.1.13.10 [place] 4.2.7.2.686 Professio [phone] [address] 2021-02-26 2021-02-26 Orders Doctor DONNA 1.2.840.114 [id number] Univers 00:00:00 00:00:00 Only Unassigned, JONATHAN 350.1.13.10 ity of [place] [facility] 4.2.7.2.686 Shawn as [phone] [facility] [address] 2021-02-08 2021-02-08 Office Wenceslao [facility] 1.2.840.114 [id number] Univers 11:00:38 11:41:35 Visit [facility] 350.1.13.10 it y of [place] 4.2.7.2.686 Shawn as Professio [phone] [address] One 2021-02-08 2021-02-08 Outpatient R WENCESLAO [facility] [id number] [facility] 11:00:00 11:00:00 DAMIAN ity of [facility] 2021-02-06 2021-02-06 Telephone [facility] 1.2.840.114 [id number] Univers 00:00:00 00:00:00 [facility] 350.1.13.10 it y of [place] 4.2.7.2.686 Shawn as Professio [phone] [address] One 2021-01-15 2021-01-15 Orders Doctor DONNA 1.2.840.114 [id number] Univers 00:00:00 00:00:00 Only Unassigned, JONATHAN 350.1.13.10 ity of [place] [facility] 4.2.7.2.686 Shawn as [id number] [facility] [address] [place] 2020-12-27 2020-12-27 Telephone [facility] 1.2.840.114 [id number] Univers 00:00:00 00:00:00 [facility] 350.1.13.10 it y of [place] 4.2.7.2.686 Shawn as Professio [phone] [address] One 2020-12-13 2020-12-13 Radha De La Cruz 1.2.840.114 [id number] Univers 00:00:00 00:00:00 Management Margie Anderson 350.1.13.10 ity of [place] [phone] [facility] [address] [place] 2020-12-11 2020-12-11 Outpatient [facility] [id number] Univers 14:17:31 23:59:00 JOEY ity of [facility] 2020-12-11 2020-12-11 [address] [id number] Univers 14:17:31 23:59:00 JOEY brooks [facility] 2020-12-11 2020-12-11 Hospital [facility] 1.2.840.114 [id number] Univers 14:17:31 23:59:00 Encounter Joey Morgan [facility] 350.1.13.10 ity of Surgical 4.2.7.2.686 Shawn as Specialti [phone] Me dical es 809 [facility] 2020-12-11 2020-12-11 Office [facility] 1.2.840.114 [id number] Univers 14:05:22 14:20:22 Visit Joey Morgan [facility] 350.1.13.10 it y of Surgical 4.2.7.2.686 Shawn as Specialti [phone] Me dical es 198 [facility] 2020-12-05 2020-12-05 Outpatient [facility] [id number] Univers 13:15:00 13:15:00 JOEY brooks [facility] 2020-12-05 2020-12-05 Telephone [facility] 1.2.840.114 [id number] Univers 00:00:00 00:00:00 [facility] 350.1.13.10 it y of Surgical 4.2.7.2.686 Shawn as Specialti [phone] Al dical es 198 [facility] 2020-11-09 2020-11-09 Laboratory Lab, [facility] Pob I [facility] 1.2. 840.114 [id number] Univers 15:05:03 15:25:03 Only Mildredemilio Claudio [facility] 350.1.13.10 ity of [place] 4.2.7.2.686 Shawn as Professio [phone] Al dical nal [address] [place] Office Building One 2020-11-09 2020-11-09 Outpatient R LION [facility] [id number] Univers 15:00:00 15:19:52 CLAUDIO brooks [facility] 2020-11-09 2020-11-09 Office [facility] 1.2.840.114 [id number] Univers 14:17:20 14:32:20 Visit [facility] 350.1.13.10 it y of [place] 4.2.7.2.686 Shawn as Professio [phone] [address] Office [facility] One 2020-11-05 2020-11-05 [facility] 1.2.840.114 [id number] Univers 00:00:00 00:00:00 Damian Olivares 350.1.13.10 it y of [place] 4.2.7.2.686 Shawn as Professio [phone] [address] Office [facility] One 2020-09-18 2020-09-18 [facility] 1.2.840.114 [id number] Univers 00:00:00 00:00:00 Damian Olivares 350.1.13.10 it y of [place] 4.2.7.2.686 Shawn as Professio [id number] [address] Office [facility] One 2020-08-17 2020-08-17 Telephone [facility] 1.2.840.[id number] [facility] 00:00:00 00:00:00 Damian [facility] 350.1.13.10 it y of [place] 4.2.7.2.686 Shawn as Professio [phone] [address] Office [facility] One 2020-08-15 2020-08-15 [facility] 1.2.840.[id number] [facility] 15:29:43 16:05:45 Visit Damian [facility] 350.1.13.10 it y of [place] 4.2.7.2.686 Shawn as Professio [phone] [address] Office [facility] One 2020-08-15 2020-08-15 Outpatient R [facility] [id number] Univers 15:30:00 15:30:00 DAMIAN ity [facility] 2020-08-15 2020-08-15 Telephone [facility] 1.2.840.114 [id number] Univers 00:00:00 00:00:00 Damian [facility] 350.1.13.10 it y of [place] 4.2.7.2.686 Shawn as Professio [phone] Al dical nal [address] [place] [address] Office [facility] 2020-07-20 2020-07-20 Outpatient R SILVIO [facility] [id number] Univers 10:00:00 10:00:00 GEORGINA todd [facility] 2020-07-18 2020-07-18 Outpatient R WENCESLAO [facility] [id number] Univers 14:15:00 14:15:00 DAMIAN todd [facility] 2020-07-04 2020-07-04 Outpatient Matthew BILLY [facility] [id number] Univers 09:30:00 09:30:00 DAMIAN brooks [facility] 2020-06-20 2020-06-20 Technical Sales Advisor Lab, Adc Fam Pob I [facility] 1.2. 840.114 [id number] Univers 11:09:56 11:18:42 Visit Damian Billy [facility] 350.1.13 .10 ity of [place] 4.2.7.2.686 Shawn as Professio [phone] Al dicmn nal [address] [place] [address] Office [facility] 2020-06-20 2020-06-20 Office [facility] 1.2.840.114 [id number] Univers 10:10:47 10:40:47 Visit [facility] 350.1.13.10 it y of [place] 4.2.7.2.686 Shawn as Professio [phone] Al dic[address] 2020-06-20 2020-06-20 Outpatient R WENCESLAO [facility] [id number] Univers 10:15:00 10:15:00 DAMIAN brooks [facility] 2020-05-21 2020-05-21 (TEL) STLMLC STLMLC [id number] Co mmon 00:00:00 00:00:00 [facility] 2020-05-21 2020-05-21 NO CHARGE STLMLC STLMLC [id number] Common 00:00:00 00:00:00 [facility] 2018-11-08 2018-11-08 Outpatient [id number] Common 11:45:00 11:45:00 [employer] [facility] [employer] [facility] Results Test Description Test Time Test Comments Results Result Comments Source MAGNESIUM 2022-05-03 17:09:05 Test Item Value Reference Range Interpretation Comme nts MAGNESIUM (test code = 0648930886) 1.3 mg/dL 1.7-2.4 L Lab Interpretation (test code = 16943-1) Abnormal [facility] METABOLIC PANEL (NA, K, CL, CO2, GLUCOSE, BUN, CREATININE, CA)2022-05-03 17:08:44 Test Item Value Reference Range Interpretation Comments NA (test code = 138 mmol/L 135-145 9334225784) K (test code = 3.2 mmol/L 3.5-5 L 4592093201) CL (test code = 104 mmol/L 98-108 4088842215) CO2 TOTAL (test code = 31 mmol/L 23-31 4550650043) AGAP (test code = 2-16 7223740738) BUN (test code = 9 mg/dL 7-23 7893902481) GLUCOSE (test code = 113 mg/dL 70-110 H 2542096519) CREATININE (test code = 0.39 mg/dL 0.5-1.04 L 4080621992) CALCIUM (test code = 7.2 mg/dL 8.6-10.6 L 6833724320) eGFR (test code = mL/min/1.73m2 8942636379) THI (test code = THI) Association of [...] tests). Lab Interpretation Abnormal (test code = 92299-4) [facility] Arterial Blood Gas.2022-05-01 00:00:20 Test Item Value Reference Range Interpretation Comments PH (test code = 2) 7.35-7.45 PCO2 (test code = See_Comment H [Automate d message] 9196345197) The system [employer] generated this result transmitted ref erence range: 35 - 45 mmHg. The reference r radha was not used to interpret this result as normal/abnor mal. PO2 (test code = See_Comment Shineon [Automated message] 4929511876) The system [employer] generated this result transmitted ref erence range: 80 - 100 mmHg. The reference r radha was not used to interpret this result as normal/abnor mal. HCO3 (test code = See_Comment Shineon [Automate d message] 0561011541) The system [employer] generated this result transmitted ref erence range: 22 - 26 mEq/L. The reference r radha was not used to interpret this result as normal/abnor mal. BE (test code = See_Comment Shineon [Automated message] 9741721658) The system [employer] generated this result transmitted ref erence range: -3.0 - 3 .0 mEq/L. The refe rence range was not u sed to interpret this result as normal/abnor mal. Lab Interpretation (test Abnormal code = 30200-2) [facility] Arterial Blood Gas.2022-04-30 15:53:27 Test Item Value Reference Range Interpretation Comments PH (test code = 2) 7.35-7.45 PCO2 (test code = See_Comment H [Automate d message] [id number]) The system [employer] generated this result transmitted ref erence range: 35 - 45 mmHg. The reference r radha was not used to interpret this result as normal/abnor mal. PO2 (test code = See_Comment L [Automated message] [id number]) The system [employer] generated this result transmitted ref erence range: 80 - 100 mmHg. The reference r radha was not used to interpret this result as normal/abnor mal. HCO3 (test code = See_Comment H [Automate d message] [id number]) The system [employer] generated this result transmitted ref erence range: 22 - 26 mEq/L. The reference r radha was not used to interpret this result as normal/abnor mal. BE (test code = See_Comment H [Automated message] [id number]) The system [employer] generated this result transmitted ref erence range: -3.0 - 3 .0 mEq/L. The refe rence range was not u sed to interpret this result as normal/abnor mal. Lab Interpretation (test Abnormal code = 15582-2) [facility] BY [id number] 16:25:00Medical Cytology Report Case: [id number] Authorizing Provider: Holly Mckeon Collected: 12/28/2018 0903 MD Delores Ordering Location: [facility] Endoscopy Received: 12/28/2018 1103 Services Pathologist: Salvador Begum MD Specimen: Pancreas PANCREAS CYST FNA BY CLINICIAN (CYTOSPINS AND CELL BLOCK OF ASPIRATE): - NEGATIVE FOR MALIGNANCY - The mucin stain is negative Signing Pathologist Direct Phone Line: [phone] signed by Salvador Begum MD on 12/29/2018 at4:25 PMThe mucin stain is negative and the control slide shows positive staining as expected.[id number], [id number], [id number] cysts in the pancreas, largest measuring 2.0 cmPANCREAS CYST FNA27 mls in cytorich red; 4 cytospins, 1 mucin stain, cell blockCollected: [id number]: [id number] interpretation of thiscase included the use of immunohistochemistry or special stains. MUCINImmunohistochemistry technicaltesting was performed at [facility], Pathology Laboratory where it was developed and [...] qualified to perform high complexity clinical laboratory testing.[facility], Department of Pathology, [address] [place] [id number], [facility], [address] [place] [address], [facility], [facility] of Pathology, [address] [place] [address], RATUPS [id number] 10:28:00Surgical Pathology Report Case: [id number] Authorizing Provider: Holly Mckeon Collected: 12/28/2018 0924 MD Delores Ordering Location: [facility] Endoscopy Received: 12/28/2018 1253 Services Pathologist: Kurtis Luna MD Specimen: Ampulla PART A AMPULLARY BIOPSY:PARTIALLY DENUDED NON- NEOPLASTIC SMALL INTESTINAL MUCOSA WITHOUT SIGNIFICANT HISTOPATHOLOGIC ALTERATION.NEGATIVE FOR DYSPLASIA OR INVASIVE CARCINOMA. Signing Pathologist Direct Phone Line: [phone] signed by Kurtis Luna MD on 12/29/2018 at 10:28 [id number] pancreatic lesionampullaThe container is labeled "ampulla" and consists of a single piece of leung-white tissue measuring 2 x 1 x 1 mmand a single piece of feathery white tissue measuring approximately the same dimension submitted entirely in cassette A. TW/bcPERFORMEDAMYLASE, BODY [id number] 13:26:00 Test Item Value Reference Range Interpretation Comments AMYLASE FLUID (BEAKER) (test code = > U/L 350) Absence of reference range indicates that normals have not been defined.Assay performance has not been validated for this type of specimen.FINE NEEDLE ASPIRATE (FNA) [id number] 13:00:00 Test Item Value Reference Range Interpretation Comments CYTOLOGY RESULT POINTER See Separate Report (BEAKER) (test code = 2629)
--- NOTE | 2022-07-17 19:32 | RAD REPORT ---
EXAM DESCRIPTION: RAD - Chest Single View - 07/17/2022 7:15 pm CLINICAL HISTORY: CHEST PAIN COMPARISON: Chest Single View dated 06/30/2022; Chest Single View dated 04/14/2022; Chest Single View dated 04/12/2022; Chest Single View dated 12/22/2021 FINDINGS: Lines: None. Lungs: Chronic prominence of the basilar interstitial markings. Pleural: No significant pleural effusions or pneumothorax. Cardiac: Cardiomegaly Mediastinum: Within normal limits. Bones: No acute fractures. Other: None IMPRESSION: Chronic changes without superimposed acute process identified.
[2022-07-17 21:37] LABS: Protime INR 1.03
[2022-07-17 22:25] LABS: Absolute Lymphocytes (CBC) 0.4 K/uL (0.7-4.9); Hematocrit 38.2 % (36.0-45.0); Lymphocytes % 6.9 % (15.3-44.8); MCV 87.4 fL (80-100); MPV 8.1 fL (7.6-11.3); RBC Red Blood Cell Count 4.37 M/uL (3.86-4.86)
[2022-07-17 22:38] LABS: ALT/SGPT 33 U/L (12-78); AST/SGOT 22 U/L (15-37); Albumin 3.5 g/dL (3.4-5.0); Alkaline Phosphatase 95 U/L (45-117); BUN Blood Urea Nitrogen 5 mg/dL (7-18); Bilirubin Total 0.2 mg/dL (0.2-1.0); Glomerular Filtration Rate 100 ml/min (=/>90); Glucose Level 168 mg/dL (74-106); Magnesium 1.8 mg/dL (1.8-2.4); NT PRO-BNP 17 pg/mL (<125); Potassium 4.2 mmol/L (3.5-5.1); Protein, Total 7.7 g/dL (6.4-8.2); Sodium Level 137 mmol/L (136-145); Troponin High Sensitivity 9.9 pg/mL (<58.9)
[2022-07-17 22:39] LABS: Bicarbonate 41 mmol/L (21-32); Bilirubin Direct < 0.1 mg/dL (0-0.2)
[2022-07-17] MEDS ORDERED: LEVALBUTEROL 1.25 MG/3 ML NEB ONE (23:11)
[2022-07-17] MEDS ORDERED: METHYLPREDNISOLONE 125 MG INJ ONE (23:11)
[2022-07-17] MEDS ORDERED: HYDROMORPHONE HCL 1 MG/ML INJ ONE (23:43)
--- NOTE | 2022-07-18 02:18 | ER ---
Nurse's Notes [facility] Name: Mila Whiting Age: 66 yrs Sex: Female : 1955 Arrival Date: 07/17/2022 Time: 16:55 Bed 9 Private MD: Diagnosis: Chronic respiratory failure with hypercapnia;Chest pain, unspecified Presentation: 07/17 17:17 Chief complaint: EMS states: "Her doctor called and told her that her CO2 levels were ss high." Pt also c/o chest tightness that has been ongoing for months. Ebola Screen: Patient denies exposure to infectious person. Patient denies travel to an Ebola-affected area in the 21 days before illness onset. Onset of symptoms is unknown. 17:17 Method Of Arrival: Ambulatory ss 18:17 Coronavirus screen: Vaccine status: Patient reports receiving the 2nd dose of the covid kr3 vaccine. Client denies travel out of the [place] in the last 14 days. Ebola Screen: Patient denies travel to an Ebola-affected area in the 21 days before illness onset. Initial Sepsis Screen: Does the patient meet any 2 criteria? No. Patient's initial sepsis screen is negative. Initial Sepsis Screen: Does the patient have a suspected source of infection? No. Patient's initial sepsis screen is negative. Risk Assessment: Do you want to hurt yourself or someone else? Patient reports no desire to harm self or others. 18:17 Acuity: CRISTY 3 kr3 Triage Assessment: 18:21 General: Appears in no apparent distress. uncomfortable, Behavior is calm, cooperative, kr3 appropriate for age. Pain:. Historical: - Allergies: 17:18 liquid magnesium; ss 17:18 Stadol; ss - PMHx: 17:18 acid reflux; Anxiety; COPD; Home O2 3L NC; Hypertension; spinal stenosis; ss - PSHx: 17:18 Cholecystectomy; hernia repair; right ankle sx; ss - Social history:: Smoking status: unknown. Screenin:21 Abuse screen: Denies threats or abuse. Denies injuries from another. Nutritional kd3 screening: No deficits noted. Tuberculosis screening: No symptoms or risk factors identified. Fall Risk None identified. Assessment: 23:22 General: Appears in no apparent distress. Behavior is calm, cooperative. Neuro: Level kd3 of Consciousness is awake, alert, obeys commands, Oriented to person, place, time, situation. Respiratory: Airway is patent Trachea midline Respiratory effort is even, unlabored, Respiratory pattern is regular, symmetrical. 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 kd3 General: Appears in no apparent distress. Behavior is calm, cooperative. Neuro: Level of Consciousness is awake, alert, obeys commands, Oriented to person, place, time, situation. Respiratory: Airway is patent Trachea midline Respiratory effort is even, unlabored, Respiratory pattern is regular, symmetrical. 03:19 Reassessment: pt waiting for taxi service. kd3 Vital Signs: 07/17 18:17 BP 137 / 85; Pulse 109; Resp 18; Pulse Ox 100% on 3 lpm NC; Weight 64.41 kg; Height 5 kr3 ft. 1 in. (154.94 cm); Pain 8/10; 18:17 Temp 98.5(O); kr3 23:21 BP 143 / 72; Pulse 102; Resp 19; Pulse Ox 99% on R/A; kd3 07/18 01:28 BP 138 / 74; Pulse 98; Resp 18; Pulse Ox 100% on 2 lpm NC; kd3 07/17 18:17 Body Mass Index 26.83 (64.41 kg, 154.94 cm) kr3 ED Course: 07/17 16:55 Patient arrived in ED. mr 17:22 Zaheer Mendez PA is PHCP. cp 17:22 Zaheer Ugarte MD is Attending Physician. cp 18:21 Triage completed. kr3 18:21 Arm band placed on left wrist. kr3 19:17 XRAY Chest (1 view) In Process Unspecified. EDMS 20:23 Missed attempt(s): 20 gauge in right forearm. wm 21:26 PT-INR Sent. kd3 21:55 Missed attempt(s): 20 gauge in right forearm. Bleeding controlled, band aid applied, bb catheter tip intact. 22:00 Initial lab(s) drawn, by me, sent to lab. Inserted saline lock: 20 gauge in left bb antecubital area, using aseptic technique. Blood collected. 23:07 Jessica Mccarty, RN is Primary Nurse. kd3 23:21 Patient has correct armband on for positive identification. kd3 07/18 00:01 Assisted to bedside commode. kd3 01:29 PO fluids given. Verbal reassurance given. sandwich given. kd3 02:11 Missed attempt(s): 18 gauge in right upper arm. Bleeding controlled, band aid applied, bb catheter tip intact. Missed attempt(s): 20 gauge in right upper arm. Bleeding controlled, band aid applied, catheter tip intact. 03:19 No provider procedures requiring assistance completed. Missed attempt(s): 22 gauge in kd3 left forearm. IV discontinued, intact, bleeding controlled, No redness/swelling at site. Pressure dressing applied. Administered Medications: 07/17 23:22 Drug: Xopenex (levalbuterol) (3) 1.25 mg Route: Inhalation; kd3 07/18 03:21 Follow up: Response: No adverse reaction kd3 07/17 23:49 Drug: Dilaudid (HYDROmorphone) 1 mg Route: IM; Site: right deltoid; kd3 07/18 03:20 Follow up: Response: No adverse reaction; Pain is decreased kd3 02:43 Drug: HYDROcodone-acetaminophen 10 mg-325 mg 1 tabs Route: PO; kd3 03:20 Follow up: Response: No adverse reaction; Pain is decreased kd3 02:44 Not Given (no iv accesss): SOLU-Medrol (methylPrednisoLONE) 125 mg IVP once kd3 Medication: 07/17 23:21 VIS not applicable for this client. kd3 07/18 01:29 Blood products:. kd3 Outcome: 02:17 Discharge ordered by . robin 03:20 Discharged to home ambulatory. kd3 03:20 Condition: stable 03:20 Discharge instructions given to patient, Instructed on discharge instructions, follow up and referral plans. Demonstrated understanding of instructions, follow-up care. 03:34 Patient left the ED. kd3 Signatures: Dispatcher [employer] EDHI Uriel Maria A stewart Margie Burrows RN RN bb Smirch, Shelby, RN RN ss Zaheer Mendez PA PA cp Marsh, Wendy wm Doucette, Kyli, RN RN kd3 Tawana Kim RN RN kr3 Corrections: (The following items were deleted from the chart) 07/17 17:19 17:18 PMHx: Home O2 4 Lpm; ss ss
--- NOTE | 2022-07-18 02:18 | EDPHYS ---
Physician Documentation [facility] Name: Mila Whiting Age: 66 yrs Sex: Female : 1955 Arrival Date: 07/17/2022 Time: 16:55 Bed 9 Private MD: ED Physician Zaheer Ugarte HPI: 07/17 18:40 This 66 yrs old Black Female presents to ER via Ambulatory with complaints of Pain,high cp CO2 level. 18:40 The patient or guardian reports chest pain that is located primarily in the substernal cp area. Onset: for months. Associated signs and symptoms: Pertinent positives: shortness of breath, Pertinent negatives: abdominal pain, cough, diaphoresis, dizziness, lower extremity pain, lower extremity swelling, palpitations, syncope, vomiting. The chest pain is described as aching. 18:40 Duration: The patient or guardian reports multiple episodes, that wax and wane. cp 18:40 Severity of pain: in the emergency department the pain is unchanged despite home cp interventions. Patient reports she was referred to ED for evaluation of elevated CO2 level after being called by office of DR Dunn for abnormal blood work. Patient with COPD, prescribed home oxygen and use is 3L NC. Historical: - Allergies: 17:18 liquid magnesium; ss 17:18 Stadol; ss - PMHx: 17:18 acid reflux; Anxiety; COPD; Home O2 3L NC; Hypertension; spinal stenosis; ss - PSHx: 17:18 Cholecystectomy; hernia repair; right ankle sx; ss - Social history:: Smoking status: unknown. ROS: 18:45 Constitutional: Negative for body aches, chills, fever, poor PO intake. cp 18:45 Cardiovascular: Positive for chest pain, of the mid and sternal chest, Negative for cp edema, palpitations. 18:45 Eyes: Negative for injury, pain, redness, and discharge. cp 18:45 ENT: Negative for drainage from ear(s), ear pain, sore throat, difficulty swallowing, difficulty handling secretions. 18:45 Respiratory: Negative for hemoptysis. 18:45 Abdomen/GI: Negative for abdominal pain, nausea, vomiting, and diarrhea, constipation. 18:45 Back: Negative for pain at rest, pain with movement. 18:45 Skin: Negative for cellulitis, rash. 18:45 Neuro: Negative for altered mental status, dizziness, headache, numbness, syncope, weakness. 18:45 All other systems are negative. Exam: 18:50 Constitutional: The patient appears in no acute distress, alert, awake, cp non-diaphoretic, non-toxic, well developed, well nourished, uncomfortable. 18:50 Head/Face: Normocephalic, atraumatic. cp 18:50 Eyes: Periorbital structures: appear normal, Conjunctiva: normal, no exudate, no injection, Sclera: no appreciated abnormality, Lids and lashes: appear normal, bilaterally. 18:50 ENT: External ear(s): are unremarkable, Nose: is normal, Mouth: Lips: moist, Oral mucosa: pink and intact, moist, Posterior pharynx: Airway: no evidence of obstruction, patent, swelling, is not appreciated, erythema, is not appreciated, exudate, is not appreciated. 18:50 Neck: ROM/movement: is normal, is supple, without pain, no range of motions limitations, no meningismus. 18:50 Chest/axilla: Inspection: normal, Palpation: crepitus, is not appreciated, tenderness, that is moderate, of the mid-sternal area. 18:50 Cardiovascular: Rate: tachycardic, Rhythm: regular, Pulses: Pulses are 2+ in right radial artery and left radial artery. Edema: is not appreciated, JVD: is not appreciated. 18:50 Respiratory: the patient does not display signs of respiratory distress, Respirations: normal, no use of accessory muscles, no retractions, labored breathing, is not present, Breath sounds: decreased breath sounds, that are moderate, throughout, stridor, is not appreciated, wheezing: is not appreciated. 18:50 Abdomen/GI: Inspection: abdomen appears normal, Bowel sounds: active, all quadrants, Palpation: abdomen is soft and non-tender, in all quadrants. 18:50 Back: pain, is absent, ROM is normal. 18:50 Skin: no rash present. 18:50 Neuro: Orientation: to person, place \T\ time. Mentation: is normal, Motor: moves all fours, strength is normal, Sensation: is normal. 19:57 ECG was reviewed by the Attending Physician. cp Vital Signs: 18:17 BP 137 / 85; Pulse 109; Resp 18; Pulse Ox 100% on 3 lpm NC; Weight 64.41 kg; Height 5 kr3 ft. 1 in. (154.94 cm); Pain 8/10; 18:17 Temp 98.5(O); kr3 23:21 BP 143 / 72; Pulse 102; Resp 19; Pulse Ox 99% on R/A; kd3 07/18 01:28 BP 138 / 74; Pulse 98; Resp 18; Pulse Ox 100% on 2 lpm NC; kd3 07/17 18:17 Body Mass Index 26.83 (64.41 kg, 154.94 cm) kr3 MDM: 07/17 18:23 Patient medically screened. jesus 19:00 Differential diagnosis: abnormal EKG, acute myocardial infarction, acute pericarditis, cp chest wall pain, pericarditis, pleurisy, pneumonia, pneumothorax, pulmonary embolus, stable angina, unstable angina. 07/18 01:45 Data reviewed: vital signs, nurses notes, lab test result(s), EKG, radiologic studies, cp plain films. 01:45 Test interpretation: by ED physician or midlevel provider: ECG, plain radiologic cp studies. 02:15 Special discussion: Based on the patient's history, exam, and Dx evaluation, there is cp no indication for emergent intervention or inpatient Tx. It is understood by the patient/guardian that if the Sx's persist or worsen they need to return immediately for re-evaluation. 02:15 ED course: Labs, EKG and chest xray reviewed. D-dimer wnl when age adjusted. Pain cp improved with meds. Review of previous labs on record indicate chronically elevated CO2 levels. Patient asymptomatic at this time, no signs of respiratory distress and non-toxic. Will discharge to home for continued monitoring. 07/17 18:34 Order name: Basic Metabolic Panel; Complete Time: 22:48 cp 07/17 22:48 Interpretation: Normal except: CL 91; CO2 41; GLUC 168; BUN 5. cp 07/17 18:34 Order name: CBC with Diff; Complete Time: 22:48 cp 07/18 01:35 Interpretation: Normal except: HGB 11.7; MCH 26.9; MCHC 30.7; MISA% 88.7; LYM% 6.9; LYMA cp 0.4. 07/17 18:34 Order name: LFT's; Complete Time: 22:48 cp 07/17 18:34 Order name: Magnesium; Complete Time: 22:48 cp 07/17 18:34 Order name: NT PRO-BNP; Complete Time: 22:48 cp 07/17 18:34 Order name: PT-INR; Complete Time: 22:48 cp 07/17 18:34 Order name: Troponin HS; Complete Time: 22:48 cp 07/17 18:34 Order name: XRAY Chest (1 view); Complete Time: 22:48 07/17 22:51 Order name: D-Dimer; Complete Time: 01:42 07/18 01:42 Interpretation: Reviewed. 07/17 22:51 Order name: LAB Add On 07/17 18:34 Order name: EKG; Complete Time: 18:35 07/17 18:34 Order name: Cardiac monitoring; Complete Time: 20:08 07/17 18:34 Order name: EKG - Nurse/Tech; Complete Time: 20:08 07/17 18:34 Order name: IV Saline Lock; Complete Time: 22:16 07/17 18:34 Order name: Labs collected and sent; Complete Time: 22:16 07/17 18:34 Order name: O2 Per Protocol; Complete Time: 22:16 cp 07/17 18:34 Order name: O2 Sat Monitoring; Complete Time: 22:16 07/18 01:24 Order name: Vital Signs: please update; Complete Time: 01:28 cp EC/17 19:57 Rate is 104 beats/min. Rhythm is regular. MD interval is normal. QRS interval is cp normal. QT interval is normal. T waves are Inverted in lead aVR. Interpreted by me. Reviewed by me. Administered Medications: 23:22 Drug: Xopenex (levalbuterol) (3) 1.25 mg Route: Inhalation; kd3 07/18 03:21 Follow up: Response: No adverse reaction kd3 07/17 23:49 Drug: Dilaudid (HYDROmorphone) 1 mg Route: IM; Site: right deltoid; kd3 07/18 03:20 Follow up: Response: No adverse reaction; Pain is decreased kd3 02:43 Drug: HYDROcodone-acetaminophen 10 mg-325 mg 1 tabs Route: PO; kd3 03:20 Follow up: Response: No adverse reaction; Pain is decreased kd3 02:44 Not Given (no iv accesss): SOLU-Medrol (methylPrednisoLONE) 125 mg IVP once kd3 Disposition Summary: 07/18/22 02:17 Discharge Ordered Location: Home cp Problem: new cp Symptoms: have improved cp Condition: Stable cp Diagnosis - Chronic respiratory failure with hypercapnia cp - Chest pain, unspecified cp Followup: cp - With: Private Physician - When: 1 - 2 days - Reason: Recheck today's complaints Discharge Instructions: - Discharge Summary Sheet cp - Nonspecific Chest Pain, Adult cp - Chronic Obstructive Pulmonary Disease cp - Chronic Respiratory Failure cp - Aspirin and Your Heart cp Forms: - Medication Reconciliation Form cp - Thank You Letter cp - Antibiotic Education cp - Prescription Opioid Use cp Addendum: 07/20/2022 13:29 Co-signature as Attending Physician, Zaheer Ugarte MD I agree with the assessment and c peguero plan of care. Signatures: Dispatcher [employer] EDZaheer Madden MD MD cha Smirch, Shelby RN RN ss Zaheer Mendez, TYLER PA cp Jessica Mccarty, RN RN kd3 Corrections: (The following items were deleted from the chart) 07/17 17:19 17:18 PMHx: Home O2 4 Lpm; ss ss
[2022-07-18] MEDS ORDERED: HYDROCODONE/APAP 10/325 TAB ONE (02:40)
[2022-07-18 04:01] VITALS: TEMP 98.5
[2022-07-18 04:03] VITALS: BP 138/74; O2SAT 100
--- NOTE | 2022-07-19 19:16 | EKG ---
Test Date: 2022-07-17 Test Time: 19:51:11 Home Attendant: MEASUREMENT RESULTS: Intervals: Rate: 104 MO: 168 QRSD: 84 QT: 302 QTc: 397 [place]: P: 77 MO: 168 QRS: 74 T: 67 INTERPRETIVE STATEMENTS: Sinus tachycardia Possible Left atrial enlargement Cannot rule out Anterior infarct, age undetermined Abnormal ECG Compared to ECG 06/30/2022 14:08:04 Myocardial infarct finding now present Left ventricular hypertrophy no longer present Electronically Signed On 07-19-22 19:10:49 TICKET WORKER by Rusty Castillo
== END 2022-07-18 03:34 | disposition home or self-care (01) ==
LOC: ER 16:47
DX: J96.12 Chronic respiratory failure with hypercapnia (principal); J44.9 Chronic obstructive pulmonary disease, unspecified; I10 Essential (primary) hypertension; Z88.5 Allergy status to narcotic agent; Z88.8 Allergy status to other drugs, medicaments and biological substances
CPT/HCPCS: 93005; 85025; 80048; 36415; 83735; 85610; 85379; 80076; 84484; 83880; 71045; 36430; 96372; 99285; J7614; J1170; J2930

== ENCOUNTER 2022-07-25 18:48 | Inpatient (IN) | payer OTHER ==
--- OUTSIDE RECORDS SUMMARY | 2022-07-25 18:55 | XMS REPORT | Continuity of Care Document ---
:[address] [facility] t Address [address] [place] [address] Care Team Providers Name Role Phone Reshma Galan MD, Guille Gay Primary Care Physician [phone] Chantel Guido Attending Clinician Unavailable Doctor Unassigned, Rickreall Attending Clinician Unavailable DAMIAN BILLY Attending Clinician [...] Policy Number Effective Date Expiration Date S [facility] INPATIENT PART B [id number] 2020 ONLY MEDICARE 00:00:00 [place] [address] [id number] [facility] Problems Condition Condition Condition Status Onset Resolution Last Treating Co mments Source Name Details Category Date Date Treatment Clinician Date Hypercapni Hypercapni Disease Active U nivers c c 8-31 ity [place]ir[place] failure y failure [facility] Branch COPD COPD Disease Active Univers exacerbati exacerbati 5- it y of on on 00:00: [place] 00 [facility] Branch Symptomati Symptomati Disease Active U nivers c c 7-11 ity of menopausal menopausal [place] female or female 00 [facility] climacteri climacteri Br anch c states c states Essential Essential Disease Active Uni vers hypertensi hypertensi 6-05 it y of on, benign [place], benign [place] [facility] Spinal Spinal Disease Active Univers stenosis, stenosis, 02-02 ity of unspecifie unspecifie 00:[place] region d region 00 Medica l other than other than Br anch cervical cervical Spinal Spinal Disease Active Univers stenosis, stenosis, 02-02 ity of unspecifie unspecifie [place] 00 Medica l other than other than Br anch cervical cervical [id number] History of Problem Active Co mmon colon Spirit polyps [facility] [id number] Anxiety Problem Active Common Spirit [facility] [id number] Essential Problem Active Comm on hypertensi Spirit on [facility] [id number] Chronic Problem Active Commo n GERD Spirit [facility] [id number] Umbilical Problem Active Commo n hernia Spirit without - [facility] [id number] History of Problem Active C ommon 9101 hepatitis Spirit C [facility] [id number] Chronic Problem Active Common obstructiv Spirit e - [facility] pulmonary [facility] disease, kes unspecifie Medica l d COPD Center type [id number] Spinal Problem Active Common stenosis Spirit of lumbar - [facility]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 St kes [facility] Exposure to 2022-05-11 2022-05-21 Not sure University of SARS-CoV-2 (event) 00:00:00 13:54:00 [facility] Branch History [facility] Food 2022-05-07 2022-05-07 1 Univers ity of Worry 00:00:00 00:00:00 [facility] History [facility] Food 2022-05-07 2022-05-07 1 Univers ity of Scarcity 00:00:00 00:00:00 [facility] Branch History [facility] 2022-05-07 2022-05-07 2 University o f Transport Med 00:00:00 00:00:00 [facility] al Branch History [facility] 2022-05-07 2022-05-07 2 University o f Transport Non-Med 00:00:00 00:00:00 [facility] Alcohol intake 2018-12-28 2018-12-[address] [facility] 00:00:00 00:00:00 non-drinker of Medical Ce nter alcohol (finding) Tobacco Comment 2018-12-27 2018-12-27 [facility] 00[facility]00 [facility] Tobacco use and 2018-12-27 2018-12-[address] [facility] exposure 00:00:00 00:00:00 [facility] Center History [facility] 2018-12-27 2018-12-[address] [facility] Alcohol Frequency 00:00:00 00:00:00 [facility] Cigarettes smoked 2015-12-30 2015-12-30 Univers ity of current (pack per 00:00:00 00:00:00 [facility]) - Reported Branch Cigarette 2015-12-30 2015-12-30 University of pack-years 00:00:00 00:00:00 [facility] Sex Assigned At [address] [facility] 00:00:00 00:00:00 [facility] Center Smoking Status Start Date Stop Date Source Former Smoker 2018-10-29 00:00:00 2018-10-29 00:00:00 Common S [facility] - [place] [facility] Medications Ordered Filled Start Stop Current Ordering Indication Dosage Frequency Signature Comments Components Source Medication Medication Date Date Medication? Clinician (SIG) Name Name diazePAM Yes [id number] 5mg Take 1 Uni vers (VALIUM) 5 9-21 tablet by ity of mg tablet 00:00: mouth 3 [place] 00 (three) Medical times Branch daily as needed for Anxiety. diazePAM Yes [id number] 5mg Take 1 Uni vers (VALIUM) 5 9-21 tablet by ity of mg tablet 00:00: mouth 3 [place] 00 (three) Medical times Branch daily as needed for Anxiety. cholecalcif 2021- Yes [id number] 1000U Take 1 Univers morgan, 05-05 [id number] tablet by ity o f vitamin D3, 00:00: 04:59 mouth [place] 25 mcg 00 :00 the Medical (1,000 morning Branch unit) for 5 tablet days. zinc 2021- Yes [id number] 50mg Take 1 Uni vers sulfate 50 05-05 [id number] capsule by ity of mg zinc 00:00: 04:59 mouth in [place] (220 mg) 00 :00 the Medical capsule morning Branch for 5 days. cholecalcif 2021- Yes [id number] 1000U Take 1 Univers morgan, 05-05 [id number] tablet by ity o f vitamin D3, 00:00: 04:59 mouth [place] 25 mcg 00 :00 the Medical (1,000 morning Branch unit) for 5 tablet days. zinc 2021- Yes [id number] 50mg Take 1 Uni vers sulfate 50 05-05 [id number] capsule by ity of mg zinc 00:00: 04:59 mouth in [place] (220 mg) 00 :00 the Medical capsule morning Branch for 5 days. MOMETASONE Yes Use in [facility] rs FUROATE 05-04 each ity of (NASONEX 16:58: nostril. [place] NASAL) 28 Medical Branch HYDROcodone Yes 1{tbl} Take 1 Un nathen -acetaminop 9-04 tablet by ity of hen 7.5-325 16:58: mouth 3 [place] as mg per 28 (three) Medical tablet times Branch daily. OXYGEN-AIR 2021-0 Yes by Univers DELIVERY 9-04 Miscellane ity o f SYSTEMS 16:58: ous route. [place] morgan [address] Branch predniSONE 2021-0 Yes 5mg Take 5 mg Un nathen 5 mg tablet 9-04 by mouth. ity of 16:58: [address] Branch MOMETASONE Yes Use in Unive rs FUROATE 9-04 each ity of (NASONEX 16:58: nostril. [place] NASAL) [address] [place] [address] Branch HYDROcodone Yes 1{tbl} Take 1 Un nathen -acetaminop 9-04 tablet by ity of hen 7.5-325 16:58: mouth 3 [place] as mg per 28 (three) Medical tablet times Branch daily. OXYGEN-AIR 2021-0 Yes by Univers DELIVERY 9-04 Miscellane ity o f SYSTEMS 16:58: ous route. [place] mor[place] [address] Branch predniSONE 0 Yes 5mg Take 5 mg Un nathen 5 mg tablet 9-04 by mouth. ity of 16:58: [address] MOMETASONE Yes Use in Unive rs FUROATE 9-04 each ity of (NASONEX 16:58: nostril. [place] NASAL) [address] [place] [address] HYDROcodone 0 Yes 1{tbl} Take 1 Un nathen -acetaminop 9-04 tablet by ity of hen 7.5-325 16:58: mouth 3 [place] as mg per 28 (three) Medical tablet times Branch daily. OXYGEN-AIR 2021-0 Yes by Univers DELIVERY 9-04 Miscellane ity o f SYSTEMS 16:58: ous route. [address] Branch predniSONE 2021-0 Yes 5mg Take 5 mg Un nathen 5 mg tablet 9-04 by mouth. ity of 16:58: [address] MOMETASONE Yes Use in Unive rs FUROATE 9-04 each ity of (NASONEX 16:58: nostril. [place] NASAL) 28 Medical Branch HYDROcodone Yes 1{tbl} Take 1 Un nathen -acetaminop 9-04 tablet by ity of hen 7.5-325 16:58: mouth 3 [place] mg per 28 (three) Medical tablet times Branch daily. OXYGEN-AIR 2021-0 Yes by Univers DELIVERY 04 Miscellane ity o f SYSTEMS 16:58: ous route. Tripp [address] Branch predniSONE Yes 5mg Take 5 mg Un nathen 5 mg tablet -04 by mouth. ity of 16:58: [address] MOMETASONE Yes Use in Unive rs [...] f SYSTEMS 16:58: ous route. [place] morgan [address] Branch predniSONE Yes 5mg Take 5 mg Un nathen 5 mg tablet 05-04 by mouth. ity of 16:58: [address] MOMETASONE Yes Use in Unive rs FUROATE 05-04 each ity of (NASONEX 16:58: nostril. [place] NASAL) Medical Branch HYDROcodone Yes 1{tbl} Take 1 Un nathen -acetaminop 9-04 tablet by ity of hen 7.5-325 16:58: mouth 3 [place] as mg per 28 (three) Medical tablet times Branch daily. OXYGEN-AIR 2021-0 Yes by Univers DELIVERY -04 Miscellane ity o f SYSTEMS 16:58: ous route. [address] predniSONE Yes 5mg Take 5 mg Un nathen 5 mg tablet 05-04 by mouth. ity of 16:58: [address] TIOTROPIUM 2- No Inhale. Uni vers BROMIDE 05-0404 ity of (SPIRIVA 11:06: 00:00 [place] RESPIMAT 58 :00 Medical INHALE) Branch promethazin 2021- No 5mL Take 5 mL Univers e-codeine 05-04 by mouth. ity of 6.25-10 11:06: 00:00 [place] mg/5 mL 58 :00 Medical syrup Branch methocarbam Yes [id number] 500mg Take 1 Univers oL 500 mg 05-04 [id number] tablet by it y of tablet 00:00: mouth 3 (three) Medical times Branch daily as needed (Muscle spasms). methocarbam Yes [id number] 500mg Take 1 Univers oL 500 mg - [id number] tablet by it y of tablet 00:00: mouth (three) Medical times Branch daily as needed (Muscle spasms). methocarbam Yes [id number] 500mg Take 1 Univers oL 500 mg 05-04 [id number] tablet by it y of tablet 00:00: mouth (three) Medical times Branch daily as needed (Muscle spasms). methocarbam Yes [id number] 500mg Take 1 Univers oL 500 mg 05-04 [id number] tablet by it y of tablet 00:00: mouth 3 (three) Medical times Branch daily as needed (Muscle spasms). methocarbam Yes [id number] 500mg Take 1 Univers oL 500 mg - [id number] tablet by it y of tablet 00:00: mouth (three) Medical times Branch daily as needed (Muscle spasms). methocarbam Yes [id number] 500mg Take 1 Univers oL 500 mg - [id number] tablet by it y of tablet 00:00: mouth 3 (three) Medical times Branch daily as needed (Muscle spasms). acetaminoph 2022- Yes [id number] 650mg Take 2 Univers en 325 mg 05-04 [id number] tablets by ity of tablet 00:00: 04:59 mouth [place] 00 :00 every 6 Medical (six) Branch hours as needed for Pain (scale 1-3) or Temp > 38.5 C. acetaminoph 2022- Yes [id number] 650mg Take 2 Univers en 325 mg -05-05 [id number] tablets by ity of tablet 00:00: 04:59 mouth [place] 00 :00 every 6 Medical (six) Branch hours as needed for Pain (scale 1-3) or Temp > 38.5 C. acetaminoph 2022- Yes [id number] 650mg Take 2 Univers en 325 mg -05-05 [id number] tablets by ity of tablet 00:00: 04:59 mouth [place] 00 :00 every 6 Medical (six) Branch hours as needed for Pain (scale 1-3) or Temp > 38.5 C. acetaminoph 2022- Yes [id number] 650mg Take 2 Univers en 325 mg -05-05 [id number] tablets by ity of tablet 00:00: 04:59 mouth [place] 00 :00 every 6 Medical (six) Branch hours as needed for Pain (scale 1-3) or Temp > 38.5 C. acetaminoph 2022- Yes [id number] 650mg Take 2 Univers en 325 mg -05-05 [id number] tablets by ity of tablet 00:00: 04:59 mouth [place] 00 :00 every 6 Medical (six) Branch hours as needed for Pain (scale 1-3) or Temp > 38.5 C. acetaminoph 2022- Yes [id number] 650mg Take 2 Univers en 325 mg -05-05 [id number] tablets by ity of tablet 00:00: 04:59 mouth [place] 00 :00 every 6 Medical (six) Branch hours as needed for Pain (scale 1-3) or Temp > 38.5 C. citalopram 2021- Yes [id number] 20mg Take 1 Univers 20 mg 9- 10-05 tablet by ity of tablet 00:00: 04:59 mouth in [place] 00 :00 the Medical morning Branch for 30 days. citalopram 2021- Yes [id number] 20mg Take 1 Univers 20 mg 9-04 10-05 tablet by ity of tablet 00:00: 04:59 mouth in [place] 00 :00 the Medical morning Branch for 30 days. citalopram 2021- Yes [id number] 20mg Take 1 Univers 20 mg 05-0405 tablet by ity of tablet 00:00: 04:59 mouth in [place] 00 :00 the Medical morning Branch for 30 days. citalopram 2021- Yes [id number] 20mg Take 1 Univers 20 mg 05-0405 tablet by ity of tablet 00:00: 04:59 mouth in [place] 00 :00 the Medical morning Branch for 30 days. citalopram 2021- Yes [id number] 20mg Take 1 Univers 20 mg 05-04 tablet by ity of tablet 00:00: 04:59 mouth in [place] 00 :00 the Medical morning Branch for 30 days. ascorbic 2021- Yes [id number] 500mg Take 1 Univers acid, 05-04 [id number] tablet by ity o f vitamin C, 00:00: 04:59 mouth [place] 500 mg 00 :00 the Medical tablet morning Branch and 1 tablet in the evening. Do all this for 5 days. dexAMETHaso 2021- Yes [id number] 6mg Take 1 Univers ne 6 mg 05-04 [id number] tablet by ity of tablet 00:00: 04:59 mouth in [place] 00 :00 the Medical morning Branch for 5 days. ascorbic 2021- Yes [id number] 500mg Take 1 Univers acid, 05-04 [id number] tablet by ity o f vitamin C, 00:00: 04:59 mouth [place] 500 mg 00 :00 the Medical tablet morning Branch and 1 tablet in the evening. Do all this for 5 days. dexAMETHaso 2021- Yes [id number] 6mg Take 1 Univers ne 6 mg 05-04 [id number] tablet by ity of tablet 00:00: 04:59 [...] Thu Medica l tablet 500 04/30/22 at [facility] mg 0815, Until Discontinu ed, Routine ipratropium 0 Yes 3mL 3 mL, Unive rs -albuteroL 04-30 Inhalation ity of (DUONEB) 13:15: , Q4H, [place] 0.5 mg-3 00 First dose Medic al mg(2.5 mg on Thu base)/3 mL 04/30/22 at nebulizer 0815, solution 3 Until mL Discontinu ed, Routine ALPRAZolam No 1mg 1 mg, Unive rs (XANAX) [...] :00 dose, On Medi josé miguel L) Thu Branch injection 04/30/22 at 125 mg 0715, 2 mL ipratropium 0 Yes 3mL 3 mL, Unive [...] status epilepticu s? No diazePAM 2022-0 Yes [id number] 5mg Take 1 Uni vers (VALIUM) 5 5-13 tablet by ity of mg tablet 00:00: mouth 3 (three) Medical times Branch daily as needed for Anxiety. diazePAM 2021-0 Yes [id number] 5mg Take 1 Uni vers (VALIUM) 5 5-13 tablet by ity of mg tablet 00:00: mouth 3 (three) Medical times Branch daily as needed for Anxiety. diazePAM 2021-0 Yes [id number] 5mg Take 1 Uni vers (VALIUM) 5 5-13 tablet by ity of mg tablet 00:00: mouth 3 (three) Medical times Branch daily as needed for Anxiety. diazePAM 2021-0 Yes [id number] 5mg Take 1 Uni vers (VALIUM) 5 5-13 tablet by ity of mg tablet 00:00: mouth 3 (three) Medical times Branch daily as needed for Anxiety. diazePAM 2021-0 Yes [id number] 5mg Take 1 Uni vers (VALIUM) 5 5-13 tablet by ity of mg tablet 00:00: mouth (three) Medical times Branch daily as needed for Anxiety. diazePAM 2021-0 Yes [id number] 5mg Take 1 Uni vers (VALIUM) 5 5-13 tablet by ity of mg tablet 00:00: mouth (three) Medical times Branch daily as needed for Anxiety. diazePAM 2021-0 Yes [id number] 5mg Take 1 Uni vers (VALIUM) 5 5-13 tablet by ity of mg tablet 00:00: mouth 3 (three) Medical times Branch daily as needed for Anxiety. diazePAM 2021-0 Yes [id number] 5mg Take 1 Uni vers (VALIUM) 5 5-13 tablet by ity of mg tablet 00:00: mouth 3 (three) Medical times Branch daily as needed for Anxiety. diazePAM 2021-0 Yes [id number] 5mg Take 1 Uni vers (VALIUM) 5 5-13 tablet by ity of mg tablet 00:00: mouth 3 (three) Medical times Branch daily as needed for Anxiety. diazePAM 2021-0 Yes [id number] 5mg Take 1 Uni vers (VALIUM) 5 5-13 tablet by ity of mg tablet 00:00: mouth 3 (three) Medical times Branch daily as needed for Anxiety. diazePAM 2021-0 2021- No [id number] 5mg Take 1 Un nathen (VALIUM) 5 [...] 2 TIMES A Medical DAY Branch AMLODIPINE 2-0 Yes [id number] TAKE 1 Un nathen 5 mg tablet 2-14 TABLET BY ity of 00:00: MOUTH EVERY DAY Medical Branch AMLODIPINE 2021-0 Yes [id number] TAKE 1 Un nathen 5 mg tablet 2-14 TABLET BY ity of 00:00: [facility] EVERY DAY Medical Branch AMLODIPINE 2-0 Yes [id number] TAKE 1 Un nathen 5 mg tablet 2-14 TABLET BY ity of 00:00: [facility] EVERY DAY Medical Branch AMLODIPINE 2-0 Yes [id number] TAKE 1 Un nathen 5 mg tablet 2-14 TABLET BY ity of 00:00: [facility] EVERY DAY Medical Branch AMLODIPINE 2-0 Yes [id number] TAKE 1 Un nathen 5 mg tablet 2-14 TABLET BY ity of 00:00: [facility] EVERY DAY Medical Branch AMLODIPINE 2-0 Yes [id number] TAKE 1 Un nathen 5 mg tablet 2-14 TABLET BY ity of 00:00: [facility] EVERY DAY Medical Branch AMLODIPINE 2-0 Yes [id number] TAKE 1 Un nathen 5 mg tablet 2-14 TABLET BY ity of 00:00: [facility] EVERY DAY Medical Branch AMLODIPINE 2022-0 Yes [id number] TAKE 1 Un nathen 5 mg tablet 2-14 TABLET BY ity of 00:00: [facility] EVERY DAY Medical Branch AMLODIPINE 2-0 Yes [id number] TAKE 1 Un nathen 5 mg tablet 2-14 TABLET BY ity of 00:00: [facility] EVERY DAY Medical Branch AMLODIPINE 2022-0 Yes [id number] TAKE 1 Un nathen 5 mg tablet 2-14 TABLET BY ity of 00:00: [facility] EVERY DAY Medical Branch AMLODIPINE 2022-0 Yes [id number] TAKE 1 Un nathen 5 mg tablet 2-14 TABLET BY ity of 00:00: MOUTH EVERY DAY Medical Branch AMLODIPINE 2021-0 Yes [id number] TAKE 1 Un nathen 5 mg tablet 2-14 TABLET BY ity of 00:00: MOUTH EVERY DAY Medical Branch AMLODIPINE 2021-0 Yes [id number] TAKE 1 Un nathen 5 mg tablet 2-14 TABLET BY ity of 00:00: MOUTH EVERY DAY Medical Branch AMLODIPINE 2021-0 Yes [id number] TAKE 1 Un nathen 5 mg tablet 2-14 TABLET BY ity of 00:00: MOUTH EVERY DAY Medical Branch diazePAM 2020-08- No [id number] 5mg Take 1 Un nathen (VALIUM) 5 [...] Medical unit CpDR Branch pantoprazol 2020-08 Yes [id number] 40mg Take 1 Univers e 40 mg EC 0-04 tablet by ity of tablet 00:00: mouth [place] 00 daily. Medical Branch pantoprazol 2020-08 Yes [id number] 40mg Take 1 Univers e 40 mg EC 0-04 tablet by ity of tablet 00:00: mouth [place] 00 daily. Medical Branch pantoprazol 2020-08 Yes [id number] 40mg Take 1 Univers e 40 mg EC 0-04 tablet by ity of tablet 00:00: mouth [place] 00 daily. Medical Branch pantoprazol 2020-08 Yes [id number] 40mg Take 1 Univers e 40 mg EC 0-04 tablet by ity of tablet 00:00: mouth [place] 00 daily. Medical Branch pantoprazol 2020-08 Yes [id number] 40mg Take 1 Univers e 40 mg EC 0-04 tablet by ity of tablet 00:00: mouth [place] 00 daily. Medical Branch pantoprazol 2020-08 Yes [id number] 40mg Take 1 Univers e 40 mg EC 0-04 tablet by ity of tablet 00:00: mouth [place] 00 daily. Medical Branch pantoprazol 2020-08 Yes [id number] 40mg Take 1 Univers e 40 mg EC 0-04 tablet by ity of tablet 00:00: mouth [place] 00 daily. Medical Branch pantoprazol 2020-08 Yes [id number] 40mg Take 1 Univers e 40 mg EC 0-04 tablet by ity of tablet 00:00: mouth [place] 00 daily. Medical Branch pantoprazol 2020-08 Yes [id number] 40mg Take 1 Univers e 40 mg EC 0-04 tablet by ity of tablet 00:00: mouth [place] 00 daily. Medical Branch pantoprazol 2020-08 Yes [id number] 40mg Take 1 Univers e 40 mg EC 0-04 tablet by ity of tablet 00:00: mouth [place] 00 daily. Medical Branch pantoprazol 2020-08 Yes [id number] 40mg Take 1 Univers e 40 mg EC 0-04 tablet by ity of tablet 00:00: mouth [place] 00 daily. Medical Branch pantoprazol 2020-08 Yes [id number] 40mg Take 1 Univers e 40 mg EC 0-04 tablet by ity of tablet 00:00: mouth [place] 00 daily. Medical Branch pantoprazol 2020-08 Yes [id number] 40mg Take 1 Univers e 40 mg EC 0-04 tablet by ity of tablet 00:00: mouth [place] 00 daily. Medical Branch pantoprazol 2020-08 Yes [id number] 40mg Take 1 Univers e 40 mg EC 0-04 tablet by ity of tablet 00:00: mouth [place] 00 daily. Medical Branch predniSONE 0 Yes 5mg Take 5 mg Un nathen 5 mg tablet 4-13 by mouth. ity of 14:13: [address] predniSONE 2020-0 Yes 5mg Take 5 mg Un nathen 5 mg tablet 4-13 by mouth. ity of 14:13: [address] Branch predniSONE 2020-0 Yes 5mg Take 5 mg Un nathen 5 mg tablet 4-13 by mouth. ity of 14:13: [address] predniSONE 2020-0 Yes 5mg Take 5 mg Un nathen 5 mg tablet 4-13 by mouth. ity of 14:13: [address] predniSONE 2020-0 Yes 5mg Take 5 mg Un nathen 5 mg tablet 4-13 by mouth. ity of 14:13: [address] predniSONE 2020-0 Yes 5mg Take 5 mg Un nathen 5 mg tablet 4-13 by mouth. ity of 14:13: [address] predniSONE 2021-0 Yes 5mg Take 5 mg Un nathen 5 mg tablet 4-13 by mouth. ity of 14:13: [address] predniSONE Yes 5mg Take 5 mg Un nathen 5 mg tablet 4-13 by mouth. ity of 14:13: [address] HYDROcodone 0 Yes 1{tbl} Take 1 Un nathen -acetaminop 3-12 tablet by ity of hen 7.5-325 14:37: mouth 3 [place] mg per 07 (three) Medical tablet times Branch daily. OXYGEN-AIR Yes by Univers DELIVERY 3-12 Miscellane ity o f SYSTEMS 14:37: ous route. [place] [address] Branch HYDROcodone Yes 1{tbl} Take 1 Un nathen -acetaminop 3-12 tablet by ity of hen 7.5-325 14:37: mouth 3 [place] as mg per 07 (three) Medical tablet times Branch daily. OXYGEN-AIR Yes by Univers DELIVERY 3-12 Miscellane ity o f SYSTEMS 14:37: ous route. [place] [address] Branch HYDROcodone Yes 1{tbl} Take 1 Un nathen -acetaminop 3-12 tablet by ity of hen 7.5-325 14:37: mouth 3 [place] as mg per 07 (three) Medical tablet times Branch daily. OXYGEN-AIR Yes by Univers DELIVERY 3-12 Miscellane ity o f SYSTEMS 14:37: ous route. [place] mor[place] [address] Branch HYDROcodone Yes 1{tbl} Take 1 Un nathen -acetaminop 3-12 tablet by ity of hen 7.5-325 14:37: mouth 3 [place] mg per 07 (three) Medical tablet times Branch daily. OXYGEN-AIR Yes by Univers DELIVERY 3-12 Miscellane ity o f SYSTEMS 14:37: ous route. [place] mor[place] [address] Branch HYDROcodone Yes 1{tbl} Take 1 Un nathen -acetaminop 3-12 tablet by ity of hen 7.5-325 14:37: mouth 3 [place] mg per 07 (three) Medical tablet times Branch daily. OXYGEN-AIR 2021-0 Yes by Univers DELIVERY 3-12 Miscellane ity o f SYSTEMS 14:37: ous route. Tripp [place] [address] Medical Branch HYDROcodone Yes 1{tbl} Take 1 Un nathen -acetaminop 3-12 tablet by ity of hen 7.5-325 14:37: mouth 3 [place] as mg per 07 (three) Medical tablet times Branch daily. OXYGEN-AIR Yes by Univers DELIVERY 3-12 Miscellane ity o f SYSTEMS 14:37: ous route. [place] mor[place] [address] Branch HYDROcodone Yes 1{tbl} Take 1 Un nathen -acetaminop 3-12 tablet by ity of hen 7.5-325 14:37: mouth 3 [place] as mg per 07 (three) Medical tablet times Branch daily. OXYGEN-AIR Yes by Univers DELIVERY 3-12 Miscellane ity o f SYSTEMS 14:37: ous route. [place] mor[place] [address] Branch HYDROcodone Yes 1{tbl} Take 1 Un nathen -acetaminop 3-12 tablet by ity of hen 7.5-325 14:37: mouth 3 [place] as mg per 07 (three) Medical tablet times Branch daily. OXYGEN-AIR Yes by Univers DELIVERY 3-12 Miscellane ity o f SYSTEMS 14:37: ous route. Tripp morgan [place] [address] Medical Branch SPIRIVA Yes INHALE 2 Univer [...] [place] RESPIMAT 14 Medical INHALE) Branch MOMETASONE 2018-0 Yes Use in Unive rs FUROATE 7-17 [...] WEEK FOR Medical 28 DAYS Branch buprenorphi 2018 Yes APPLY ONE U nivers ne 10 [...] by mouth [facility] (PHENERGAN 10:34: every 4 [facility] WITH 04 (four) Center CODEINE) hours as 6.25-10 needed for mg/5 mL Cough. syrup gabapentin 2019-0 Yes 100mg QD Take [address] (NEURONTIN) 4-30 mg by [facility] 100 MG 10:34: mouth Medical capsule 04 daily. [place] OXYGEN-AIR 2018-[address] DELIVERY 4-30 Miscellane [facility] SYSTEMS 10:34: ous route. [place] [address] Center aspirin 81 2019- Yes 81mg QD Take [address] MG EC 4-30 by mouth [facility] tablet 10:34: daily. Medical Center ALPRAZolam Yes .5mg Take 0.5 [facility] [...] Luke s 5 MG tablet 10:34: daily. [place] [address] Center budesonide- 2019-0 Yes 2{puff} Q.5D Inhale [...] 4-30 Miscellane [facility] SYSTEMS 10:34: ous route. [facility] [place] 04 [place] aspirin 81 2019-0 Yes 81mg QD Take [address] MG EC 4-30 by mouth [facility] tablet 10:34: daily. Medical [address] [place] [address] ALPRAZolam 2018- Yes .5mg Take 0.5 CHI [...] Luke s 5 MG tablet 10:34: daily. [address] budesonide- 2018-0 Yes 2{puff} Q.5D Inhale [address] formoterol 4-30 puffs by [facility]ukes (SYMBICORT) 10:34: mouth via M edical 160-4.5 04 inhaler 2 [place] mcg/actuati (two) on inhaler times daily. amLODIPine 0 Yes 5mg QD Take [address] (NORVASC) 5 4-30 by mouth Luke s MG tablet 10:34: daily. Medica l [address] [place] [address] tiotropium 0 Yes 18ug Q.5D Inhale [address] (SPIRIVA) 4-30 mcg by [facility]ukes 18 mcg 10:34: mouth via Medica l inhalation 04 inhaler 2 Cent er capsule (two) times daily. HYDROcodone 2019-0 Yes 1{tbl} Take [address] -acetaminop 4-30 tablet by Cat nnamid valladares (NORCO 10:34: mouth Medica l 7.5-325) [...] mouth Medical capsule 04 daily. Center OXYGEN-AIR [address] DELIVERY 4-30 [facility] 10:34: ous route. Medi josé miguel MISC 04 Center aspirin 81 2019-0 Yes 81mg QD Take [address] MG EC 4-30 by [facility] tablet 10:34: daily. Medical 04 Center ALPRAZolam 2019-0 Yes .5mg Take 0.[address] [facility] (XANAX) 0.5 4-30 mg by [facility] MG tablet 10:34: mouth 3 Medic al 04 (three) Center times daily as needed for Anxiety. albuterol 2019-0 Yes 2.5mg Take 2.5 [facility] [...] Luke s MG tablet 10:34: daily as [facility] 04 needed for Center Allergies. promethazin 2019-0 Yes 5mL Take [address] e-codeine 4-30 by mouth [facility] (PHENERGAN 10:34: every 4 [facility] WITH 04 (four) Center CODEINE) hours as 6.25-10 needed for mg/5 mL Cough. syrup gabapentin 2019-0 Yes 100mg QD Take [address] (NEURONTIN) 4-30 mg by [facility] 100 MG 10:34: mouth Medical capsule 04 daily. [place] OXYGEN-AIR 2018-[address] [facility] DELIVERY 4-30 [facility] 10:34: ous route. [facility] MIS 04 [place] aspirin 81 Yes 81mg QD Take [address] MG EC 4-30 by mouth [facility] tablet 10:34: daily. [address] aspirin 81 0 Yes 81mg QD Take [address] MG EC 4-30 by mouth [facility] tablet 10:34: daily. [address] ALPRAZolam 2018-0 Yes .5mg Take 0.[address] (XANAX) 0.5 4-30 mg by [facility] MG tablet 10:34: mouth 3 Medic al 04 (three) Center times daily as needed for Anxiety. albuterol 0 Yes 2.5mg Take 2.[address] (PROVENTIL) 4-30 mg by [facility] 2.5 mg/0.5 10:34: nebulizati M edical mL Nebu 04 on every 6 Center nebulizer (six) solution hours as needed. predniSONE 2019-0 Yes 5mg QD Take [address] (DELTASONE) 4-30 by mouth Luke s 5 MG tablet 10:34: daily. [address] budesonide- 2019-0 Yes 2{puff} Q.5D Inhale 2 [...] tablet hours as needed for Pain. buprenorphi 2018- Yes 1{patch Place [address] ne [...] josé miguel 04 needed for Center Allergies. ALPRAZolam 2019-0 Yes .5mg Take 0.[address] (XANAX) 0.5 4-30 mg by [facility] MG tablet 10:34: mouth 3 Medic al 04 (three) Center times daily as needed for Anxiety. promethazin 20190 Yes 5mL Take [address] e-codeine 4-30 by mouth [facility] (PHENERGAN 10:34: every 4 [facility] WITH 04 (four) Center CODEINE) hours as 6.25-10 needed for mg/5 mL Cough. syrup gabapentin 2019- Yes 100mg QD Take [address] (NEURONTIN) 4-30 mg by [facility] 100 MG 10:34: mouth Medical capsule 04 daily. Center OXYGEN-AIR [address] [facility] DELIVERY 4-30 [facility] 10:34: ous route. [facility] [place] 04 Center albuterol 0 Yes 2.5mg Take 2.[address] (PROVENTIL) 4-30 mg by [facility] 2.5 mg/0.5 10:34: nebulizati M edical mL Nebu 04 on every 6 Center nebulizer (six) solution hours as needed. predniSONE Yes 5mg QD Take [address] (DELTASONE) 4-30 by mouth Luke s 5 MG tablet 10:34: daily. [facility] 04 [place] budesonide- 2018-0 Yes 2{puff} Q.5D Inhale [address] formoterol 4-30 puffs by [facility] (SYMBICORT) 10:34: mouth via M edical 160-4.5 04 inhaler 2 Center mcg/actuati (two) on inhaler times daily. amLODIPine Yes 5mg QD Take [address] (NORVASC) 5 4-30 by mouth Luke s MG tablet 10:34: daily. Medica l 04 [place] tiotropium 0 Yes 18ug Q.5D Inhale [address] (SPIRIVA) 4-[address] [facility] 18 mcg 10:34: mouth via Medica l [...] josé miguel 04 needed for Center Allergies. Butcierras Butrans Yes Na Guido 1 patch to Common skin [facility] Lactulose Lactulose Yes Na Guido 15 ml C ommon [facility] Lopressor Lopressor Yes Na Guido 1 tablet Common with food [facility] Spiriva Spiriva Yes Na Guido 2 puffs Com mon Respimat Respimat [facility] Aspirin 81 Aspirin 81 Yes Na Guido 1 tablet Common [facility] Zyrtec Zyrtec Yes Na Guido 1 tablet Comm on Allergy Allergy [facility] Clearwater [place] Yes Na Guido 1 tablet Common as needed [facility] Albuterol-I Albuterol-I Yes Na Guido not Common pratropium pratropium defined [facility] Alprazolam Alprazolam Yes Na Guido 1 tablet Common [facility] Symbicort Symbicort Yes Na Guido 2 puffs Common [facility] Norvasc Norvasc Yes Na Guido 1 tablet Co mmon [facility] Protonix Protonix Yes Na Guido 1/2 tablet Common [facility] PredniSONE PredniSONE Yes Na Guido 1 tablet Common [facility] Combivent Combivent Yes Na Guido not Co mmon defined [facility] Butrans 10 Butrans 10 No 1{patch Butrans [...] QD Norvasc 5 MG MG t} MG [place] No 1{table QID [place] 7.5-325 MG 7.5-325 MG t_as_ne 7.5-325 MG [...] Immunizations Ordered Filled Immunization Date Status Comments Sourc e Immunization Name Name Remdesivir 2022-05-04 Completed [facility] 00:00:00 [facility] Remdesivir 2022-05-04 Completed [facility] 00:00:00 [facility] Remdesivir 2022-05-04 Completed [facility] 00:00:00 [facility] Remdesivir 2022-05-04 Completed [facility] 00:00:00 [facility] Remdesivir 2022-05-04 Completed [facility] 00:00:00 [facility] Remdesivir 2022-05-04 Completed [facility] 00:00:00 [facility] Remdesivir 2022-05-03 Completed [facility] 00:00:00 [facility] Remdesivir 2022-05-03 Completed [facility] 00:00:00 [facility] Remdesivir 2022-05-03 Completed [facility] 00:00:00 [facility] Remdesivir 2022-05-03 Completed [facility] 00:00:00 [facility] Remdesivir 2022-05-03 Completed [facility] 00:00:00 [facility] Remdesivir 2022-05-03 Completed [facility] 00:00:00 [facility] Remdesivir 2022-05-02 Completed [facility] 00:00:00 [facility] Remdesivir 2022-05-02 Completed [facility] 00:00:00 [facility] Remdesivir 2022-05-02 Completed [facility] 00:00:00 [facility] Remdesivir 2022-05-02 Completed [facility] 00:00:00 [facility] Remdesivir 2022-05-02 Completed [facility] of 00:00:00 [facility] Remdesivir 2022-05-02 Completed [facility] 00:00:00 [facility] [...] Branch Remdesivir 2022-04-30 Completed [facility] 00:00:00 [facility] Remdesivir 2022-04-30 Completed [facility] 00:00:00 [facility] Remdesivir 2022-04-30 Completed University of 00:00:00 [facility] SARS-COV-2 COVID-19 2021-08-30 Completed Unive rsity [...] Completed Unive rsity of MODERNA 0.25ML 00:00:00 [facility] josé miguel BOOSTER VACCINE Branch Kenalog Kenalog 2018-11-08 Completed [facility] - (Triamcinolone) (Triamcinolone) 13:04:00 [place] [facility] Vital Signs Vital Name Observation Time Observation Value Comments Source Systolic blood 2022-05-21 19:06:00 159 mm[Hg] Univer sity of pressure [facility] Diastolic blood 2022-05-21 19:06:00 73 mm[Hg] Unive rsity of pressure [facility] Heart rate 2022-05-21 19:05:00 109 /min Universi ty of [facility] Body temperature 2022-05-21 19:05:00 37.5 Odalys Univ ersity of [facility] Body height 2022-05-21 19:05:00 154.9 cm Universi ty of [place] [facility] [place] Body weight 2022-05-21 19:05:00 63.05 kg Universi ty [facility] Branch BMI 2022-05-21 19:05:00 26.26 kg/m2 Universi ty [facility] Oxygen saturation in 2022-05-21 19:05:00 96 /min University of Arterial blood by [facility] Pulse oximetry Branch Heart rate 2022-05-04 20:35:00 107 /min Universi ty [facility] Respiratory rate 2022-05-04 20:35:00 18 /min Univ ersity of [facility] Oxygen saturation in 2022-05-04 20:35:00 99 /min University of Arterial blood by [facility] Pulse oximetry Branch Systolic blood 2022-05-04 17:00:00 121 mm[Hg] Univer sity of pressure [facility] Diastolic blood 2022-05-04 17:00:00 75 mm[Hg] Unive rsity of pressure [facility] Body temperature 2022-05-04 17:00:00 36.5 Odalys Univ ersity of [facility] Body weight 2022-05-04 10:05:00 65.499 kg Universi ty [facility] BMI 2022-05-04 10:05:00 27.28 kg/m2 Universi ty [facility] Body height 2022-04-30 13:07:00 154.9 cm Universi ty [facility] Heart rate 2022-04-23 22:58:00 104 /min Universi ty [facility] Respiratory rate 2022-04-23 22:58:00 18 /min Univ ersity of [facility] Oxygen saturation in 2022-04-23 22:58:00 100 /min University of Arterial blood by [employer] Pulse oximetry Branch Systolic blood 2022-04-23 22:26:00 130 mm[Hg] Univer sity of pressure [facility] Diastolic blood 2022-04-23 22:26:00 81 mm[Hg] Unive rsity of pressure [facility] [place] Body temperature 2022-04-23 22:26:00 37.22 Odalys Univ ersity of [facility] Body height 2022-04-23 22:26:00 154.9 cm Universi ty [facility] Body weight 2022-04-23 22:26:00 64.411 kg Universi ty [facility] BMI 2022-04-23 22:26:00 26.83 kg/m2 Universi ty [facility] Systolic blood 2022-01-10 18:39:00 164 mm[Hg] Univer sity of pressure [facility] Diastolic blood 2022-01-10 18:39:00 82 mm[Hg] Unive rsity of pressure [facility] Heart rate 2022-01-10 18:38:00 108 /min Universi ty [facility] Body temperature 2022-01-10 18:38:00 37.33 Odalys Univ ersity of [facility] Body height 2022-01-10 18:38:00 154.9 cm Universi ty [facility] Body weight 2022-01-10 18:38:00 65.318 kg Universi ty [facility] BMI 2022-01-10 18:38:00 27.21 kg/m2 Universi ty [facility] Oxygen saturation in 2022-01-10 18:38:00 95 /min University of Arterial blood by [employer] josé miguel Pulse oximetry Branch Procedures Procedure Date / Time Performing Clinician Source Performed EXTERNAL PROVIDER RECORDS 2022-07-15 06:01:00 Doctor Unassigned, [facility] [place] [facility] MAGNESIUM 2022-05-04 10:03:00 Gil [facility] BASIC METABOLIC PANEL 2022-05-04 10:03:[address] [facility] (NA, K, CL, CO2, GLUCOSE, Medica l Branch BUN, CREATININE, CA) ACUTE CARE VENOUS BLOOD 2022-05-04 10:03:00 Gil [facility] ACUTE CARE VENOUS BLOOD 2022-05-03 15:18:00 Gil [facility] MAGNESIUM 2022-05-03 15:14:00 Gil [facility] BASIC METABOLIC PANEL 2022-05-03 15:14:[address] [facility] (NA, K, CL, CO2, GLUCOSE, Medica l Branch BUN, CREATININE, CA) MAGNESIUM 2022-05-02 09:31:00 Otis [facility] BASIC METABOLIC PANEL 2022-05-02 09:31:00 Prakash Berg [facility] (NA, K, CL, CO2, GLUCOSE, Medica l Branch BUN, CREATININE, CA) CBC WITH DIFF 2022-05-02 09:31:00 Otis [facility] ACUTE CARE VENOUS BLOOD 2022-05-02 09:28:00 Deedee [facility] MAGNESIUM 2022-05-01 09:20:00 Prakash Berg [facility] BASIC METABOLIC PANEL 2022-05-01 09:20:00 Prakash Berg [facility] (NA, K, CL, CO2, GLUCOSE, Medica l Branch BUN, CREATININE, CA) ACUTE CARE VENOUS BLOOD 2022-05-01 09:20:00 Deedee [facility] CBC WITH DIFF 2022-05-01 09:20:00 Prakash Berg [facility] MRSA / MSSA SCREEN BY 2022-04-30 22:35:[address] [facility] PCR, [facility] ACUTE CARE ARTERIAL BLOOD 2022-04-30 21:28:00 [facility] ACUTE CARE ARTERIAL BLOOD 2022-04-30 15:47:00 [facility]-19 (ID NOW RAPID 2022-04-30 11:56:00 Mariposa Craig [facility] TESTING) Medical Branch LAB ONLY COVID 2022-04-30 11:56:00 Mariposa Craig [facility] INTERPRETATION [facility] CRITICAL CARE 2022-04-30 11:54:13 Mariposa Craig [facility] ACUTE CARE ARTERIAL BLOOD 2022-04-30 11:35:00 [facility]ST 1 VW 2022-04-30 10:37:04 Mariposa Craig [facility] TROPONIN I 2022-04-30 10:13:00 Mariposa Craig [facility] BASIC METABOLIC PANEL 2022-04-30 10:13:00 Mariposa Craig [facility] (NA, K, CL, CO2, GLUCOSE, Medica l Branch BUN, CREATININE, CA) CBC WITH DIFF 2022-04-30 10:13:00 Mariposa Craig [facility] HB ECG ROUTINE & RHYTHM 2022-04-30 09:46:40 Mariposa Craig [facility] EMERGENCY DEPARTMENT 2022-04-30 05:01:00 Doctor Norman, [facility] DOCUMENTS [place] [facility] [place] TROPONIN I 2022-04-23 22:38:00 Jeff Sampson [facility] COMP. METABOLIC PANEL 2022-04-23 22:38:00 Singer [facility] ([id number]) Medical Branch CBC WITH DIFF 2022-04-23 22:38:00 Singer [facility] N-TERMINAL PRO-BNP 2022-04-23 22:38:00 Jeff Sampson [facility] [place] [facility] - OTHER 2022-02-11 05:01:00 Doctor Norman, [facility] - OTHER 2022-02-07 05:01:00 Doctor Marcia Austin [facility] - OTHER 2022-02-03 05:01:00 Doctor Marcia Austin [facility] - OTHER 2022-01-17 05:01:00 Doctor Marcia Austin [facility] [facility] - OTHER 2021-12-29 05:01:00 Doctor Marcia Austin [facility] - OTHER 2021-12-20 05:01:00 Marcia Kaminski [facility] Name [facility] Branch Plan of Care Planned Activity Planned Date Details Comments Source Future Scheduled 2020-05-[address] [facility] Test 00:00:00 (#1) [code = [facility] INFLUENZA VACCINE (#1)] Future Scheduled [address] [facility] Test 00:00:00 (procedure) [code = [facility] 48116320] Future Scheduled [address] [facility] Test 00:00:00 malignant neoplasm Medical C enter of cervix (procedure) [code = 223640022] Future Scheduled [address] [facility] Test 00:00:00 malignant neoplasm Medical C enter of breast (procedure) [code = 116067016] Future Scheduled [address] [facility] Test 00:00:00 malignant neoplasm Medical C enter of colon (procedure) [code = 760113279] Encounters Start End Encounter Admission Attending Care Care Encounter Source Date/Time Date/Time Type Type Clinicians Facility Department ID 2021-09-25 Outpatient Lata Chantel [facility] [id number] Common 11:46:50 [id number] [facility] 2021-09-25 Outpatient Chantel Guido [facility] [id number] Common 11:44:44 [id number] [facility] 2022-07-15 2022-07-15 Orders Doctor THOMPSON 1.2.840.114 [id number] Univers 00:00:00 00:00:00 Only JONATHAN Austin [id number] ity of [place] [facility] [id number] Shawn as [id number] [facility] 009 Branch 2022-06-18 2022-06-18 Outpatient Matthew BILLY [facility] [id number] Univers 13:30:00 13:30:00 DAMIAN [facility] 2022-05-21 2022-05-21 [facility] 1.2.840.114 [id number] Univers 14:30:00 15:00:00 Visit [facility] [id number] it y of [place] [id number] Shawn as MICAH?BLEA [id number] [address] MEDICAL OFFICE BUILDING 2022-05-21 2022-05-21 Outpatient R [facility]ENCESLAO [facility] [id number] Univers 14:30:00 14:30:00 [facility] 2022-05-19 2022-05-19 [facility] [id number] Univers 14:30:00 14:30:00 [facility] 2022-05-07 2022-05-07 Transition RADHA Loving 1.2.840.114 [id number] Univers 00:00:00 00:00:00 of Care Harry ANDERSON [id number] ity [place] [id number] [facility] [address] [place] 2022-04-30 2022-05-04 Inpatient X FRANCOIS [facility] [id number] Univers 04:39:00 16:30:00 [facility] 2022-04-30 2022-05-04 [facility] Mariposa Craig [facility] 1.2.840.11 [id number] Univers 04:39:00 16:30:00 Encounter Jayden Cordero 350.1.13.10 ity [place] [id number] [facility] [address] [place] 2022-04-23 2022-04-23 Emergency X [facility]ER [facility] [id number] Univers 17:28:00 19:04:00 JEFF brooks of [facility] 2022-04-23 2022-04-23 Emergency Sampson, [facility] [id number] Univers 17:28:00 19:04:00 Jeff BUS[place] 350.1.13.10 i ty [facility] [place] [id number] [place] 912394 [place] 2022-02-11 2022-02-11 Orders Doctor DONNA 1.2.840.114 [id number] Univers 00:00:00 00:00:00 Only Unassigned, JONATHAN 350.1.13.10 ity of [facility] 4.2.7.2.686 Shawn as [id number] [address] 2022-02-07 2022-02-07 Orders Doctor THOMPSON 1.2.840.114 [id number] Univers 00:00:00 00:00:00 Only Unassigned, JONATHAN [id number] ity of [facility] 4.2.7.2.686 Shawn as [id number] [address] 2022-02-03 2022-02-03 Orders Doctor THOMPSON 1.2.840.114 [id number] Univers 00:00:00 00:00:00 Only Unassigned, JONATHAN 350.1.13.10 ity of [facility] 4.2.7.2.686 Shawn as [id number] [address] 2022-01-17 2022-01-17 Orders Doctor THOMPSON 1.2.840.114 [id number] Univers 00:00:00 00:00:00 Only Unassigned, JONATHAN 350.1.13.10 ity of [facility] 4.2.7.2.686 Shawn as [id number] [address] 2022-01-10 2022-01-10 Outpatient Matthew BILLY PATAMARA [facility] [id number] Univers 13:00:00 13:55:59 DAMIAN brooks [facility] 2022-01-10 2022-01-10 Office Wenceslao [facility] 1.2.840.114 [id number] Univers 13:00:00 13:15:00 Visit [facility] [id number] it y of [place] 4.2.7.2.686 Shawn as MICAH?BLEA [id number] [address] MEDICAL OFFICE BUILDING 2022-01-10 2022-01-10 [facility] [id number] Univers 13:00:00 13:00:00 DAMIAN [facility] 2021-12-29 2021-12-29 Orders Doctor DONNA 1.2.840.114 [id number] Univers 00:00:00 00:00:00 Only Unassigned, JONATHAN 350.1.13.10 ity of [facility] 4.2.7.2.686 Shawn as [id number] [address] 2021-12-20 2021-12-20 Orders Doctor DONNA 1.2.840.114 [id number] Univers 00:00:00 00:00:00 Only Unassigned, JONATHAN 350.1.13.10 ity of [place] [facility] 4.2.7.2.686 Shawn as [id number] [address] 2021-12-11 2021-12-11 Outpatient [facility] [id number] Univers 11:00:00 11:51:30 DAMIAN [facility] 2021-12-11 2021-12-11 Office [facility] 1.2.840.114 [id number] Univers 11:00:00 11:15:00 Visit [facility] 350.1.13.10 it y of [place] 4.2.7.2.686 Shawn as MICAH?BLEA [phone] [address] MEDICAL OFFICE [facility] 2021-12-11 2021-12-11 Outpatient [facility] [id number] Univers 11:00:00 11:00:00 DAMIAN [facility] 2021-12-05 2021-12-05 Telephone [facility] 1.2.840.114 [id number] Univers 00:00:00 00:00:00 [facility] 350.1.13.10 it y of [place] 4.2.7.2.686 Shawn as MICAH?BLEA [id number] Dc brandon [address] [place] MEDICAL OFFICE BUILDING 2021-10-14 2021-10-14 [facility] 1.2.840.114 [id number] Univers 00:00:00 00:00:00 [facility] 350.1.13.10 it y of [place] 4.2.7.2.686 Shawn as PROFESSIO [id number] [facility] [address] [place] [address] OFFICE [facility] ONE 2021-09-11 2021-09-11 Orders Doctor DONNA 1.2.840.114 [id number] Univers 00:00:00 00:00:00 Only Unassigned, JONATHAN 350.1.13.10 ity of [place] [facility] 4.2.7.2.686 Shawn as [phone] [address] 2021-09-03 2021-09-03 Critical access hospital 1.2.840.114 [id number] Univers 00:00:00 00:00:00 [facility] 350.1.13.10 it y of [place] 4.2.7.2.686 Shawn as PROFESSIO [id number] [facility] KARIN [address] [place] [address] OFFICE [facility] ONE 2021-08-30 2021-08-30 Outpatient Matthew BILLY [facility] [id number] Univers 13:00:00 13:52:57 [facility] 2021-08-30 2021-08-30 [facility] 1.2.840.114 [id number] Univers 13:00:00 13:15:00 Visit [facility] 350.1.13.10 it y of [place] 4.2.7.2.686 Shawn as MICAH?BLEA [id number] Dc caesarga SAE [address] [place] [address] OFFICE [facility] 2021-08-30 2021-08-30 Outpatient Matthew BILLY [facility] [id number] Univers 13:00:00 13:00:00 [facility] 2021-08-28 2021-08-28 Outpatient R [facility]ENC[facility]O [facility] [id number] Univers 15:30:00 15:30:00 [facility] 2021-08-28 2021-08-28 Outpatient R [facility]O [facility] [id number] Univers 15:30:00 15:30:00 DAMIAN cristela [facility] 2021-08-28 2021-08-28 Outpatient R [facility]LAO [facility] [id number] Univers 15:30:00 15:30:00 DAMAIN cristela [facility] 2021-08-28 2021-08-28 Outpatient R [facility]O [facility] [id number] Univers 15:30:00 15:30:00 DAMIAN [facility] 2021-08-26 2021-08-26 [facility] 1.2.840.114 [id number] Univers 00:00:00 00:00:00 [facility] 350.1.13.10 it y of [place] 4.2.7.2.686 Shawn as MICAH?BLEA [id number] Dc brandon [address] MEDICAL OFFICE BUILDING 2021-07-30 2021-07-30 Outpatient R ZIGGY MEJIA [facility] [id number] Univers 13:30:00 13:30:00 ZIGGY MEJIA [facility] 2021-07-30 2021-07-30 Outpatient R ZIGGY MEJIA [facility] [id number] Univers 13:30:00 13:30:00 ZIGGY MEJIA cristela [facility] 2021-07-30 2021-07-30 Outpatient R ROBERTOZIGGY GRIMM [facility] [id number] Univers 13:30:00 13:30:00 ZIGGY MEJIA cristela [facility] 2021-07-30 2021-07-30 Outpatient R ZIGGY MEJIA [facility] [id number] Univers 13:30:00 13:30:00 ROBERTO ZIGGY [facility] 2021-07-18 2021-07-18 Outpatient R IZZY TSAI [facility] [id number] Univers 10:00:00 10:00:00 [facility] 2021-07-15 2021-07-15 [facility] 1.2.840.114 [id number] Univers 00:00:00 00:00:00 [facility] HEALTH 350.1.13.10 it y of [place] 4.2.7.2.686 Shawn as MICAH?BLEA [id number] Dc brandon [address] OFFICE [facility] 2021-07-10 2021-07-10 Telephone [facility] 1.2.840.114 [id number] Univers 00:00:00 00:00:00 Damian HEALTH 350.1.13.10 it y of [place] 4.2.7.2.686 Shawn as MICAH?BLEA [id number] Dc brandon [address] OFFICE [facility] 2021-07-09 2021-07-09 Telephone [facility] 1.2.840.114 [id number] Univers 00:00:00 00:00:00 Damian HEALTH 350.1.13.10 it y of [place] 4.2.7.2.686 Shawn as MICAH?BLEA [id number] Dc brandon [address] OFFICE [facility] 2021-06-03 2021-06-03 [facility] 1.2.840.114 [id number] Univers 00:00:00 00:00:00 [facility] 350.1.13.10 it y of [place] 4.2.7.2.686 Shawn as Micah?Blea [id number] Dc brandon [address] Office [facility] 2021-06-03 2021-06-03 Telephone [facility] 1.2.840.114 [id number] Univers 00:00:00 00:00:00 [facility] 350.1.13.10 it[place] [facility] [phone] Dc brandon [address] 2021-05-27 2021-05-27 Telephone [facility] 1.2.840.114 [id number] Univers 00:00:00 00:00:00 [facility] Health 350.1.13.10 ity of [place] 4.2.7.2.686 Shawn as Micah?Blea [phone] Dc dicmaryjo millard [address] [place] [address] Office [facility] 2021-05-24 2021-05-24 [facility] 1.2.022.631 [id number] Univers 13:57:39 23:59:00 Encounter Ibrahima Busby 350.1.13.10 ity [facility] 4.2.7.2.686 [facility] [phone] [facility] [address] 2021-05-24 2021-05-24 Outpatient R SAUDIBRAHIMA DIOR [facility] [id number] Univers 13:56:37 13:56:37 IBRAHIMA SOMMER [facility] 2021-05-24 2021-05-24 Outpatient R IBRAHIMA SOMMER [facility] [id number] Univers 13:56:37 13:56:37 IBRAHIMA SOMMER [facility] 2021-05-24 2021-05-24 [facility] 1.2.091.496 [id number] Univers 13:56:37 13:56:37 Encounter Ibrahima Busby 350.1.13.10 ity [facility] 4.2.7.2.686 [facility] [phone] [facility] [address] 2021-05-13 2021-05-13 Outpatient R SAUDIBRAHIMA Nance [facility] [id number] Univers 00:00:00 00:00:00 IBRAHIMA SOMMER [facility] 2021-05-03 2021-05-03 Critical access hospital 1.2.840.114 [id number] Univers 00:00:00 00:00:00 [facility] 350.1.13.10 it y of [place] 4.2.7.2.686 Shawn as Professio [phone] Dc dical nal [address] One 2021-05-03 2021-05-03 [facility] 1.2.840.114 [id number] Univers 00:00:00 00:00:00 [facility] 350.1.13.10 it y of [place] 4.2.7.2.686 Shawn as Professio [phone] Dc dical nal [address] [place] [address] One 2021-04-23 2021-04-23 Blood Bank Specialist Lab, Ang - Db [facility] 1.2.840.1 14 [id number] Univers 13:30:12 13:45:12 Visit Ibrahima Sommer [facility] 350.1.13. 10 ity of [place] 4.2.7.2.686 Shawn as Micah?Blea [phone] Dc brandon millard 353 [facility] Office Building 2021-04-23 2021-04-23 Office Saud [facility] 1.2.840.114 [id number] Univers 12:51:35 13:28:39 Visit Ibrahima [facility] 350.1.13.10 ity of [place] 4.2.7.2.686 Shawn as Micah?Blea [phone] Dc brandon lopez 092 [facility] Office [facility] 2021-04-23 2021-04-23 Outpatient IBRAHIMA HERRERA [facility] [id number] Univers 11:20:00 11:20:00 IBRAHIMA SOMMER [facility] 2021-04-16 2021-04-16 Outpatient Matthew IBRAHIMA SOMMER [facility] [id number] Univers 10:40:00 10:40:00 IBRAHIMA SOMMER [facility] 2021-03-28 2021-03-28 Outpatient Matthew IBRAHIMA SOMMER [facility] [id number] Univers 11:00:00 11:00:00 IBRAHIMA SOMMER [facility] 2021-03-22 2021-03-22 [facility] 1.2.840.114 [id number] Univers 00:00:00 00:00:00 [facility] 350.1.13.10 it y of [place] 4.2.7.2.686 Shawn as Professio [phone] [facility] [address] Office [facility] One 2021-03-22 2021-03-22 [facility] 1.2.840.114 [id number] 00:00:00 00:00:00 [facility] 350.1.13.10 [place] 4.2.7.2.686 Professio [phone] [place] [address] Office [facility] One 2021-03-21 2021-03-21 [facility] 1.2.840.114 [id number] Univers 00:00:00 00:00:00 [facility] 350.1.13.10 it y of [place] 4.2.7.2.686 Shawn as Professio [phone] Dc dical [facility] [address] Building One 2021-03-21 2021-03-21 [facility] 1.2.840.114 [id number] 00:00:00 00:00:00 [facility] 350.1.13.10 [place] 4.2.7.2.686 Professio [phone] nal [facility] Office Building One 2021-02-26 2021-02-26 [facility] 1.2.087.963 [id number] Univers 16:37:25 23:59:00 Encounter Ibrahima Busby 350.1.13.10 ity of [place] 4.2.7.2.686 [facility] [phone] [address] 2021-02-26 2021-02-26 [facility] 1.2.840.114 [id number] Univers 16:36:33 16:36:33 Encounter Zana Busby 350.1.13.10 ity of [place] 4.2.7.2.686 [facility] [phone] [address] 2021-02-26 2021-02-26 [facility] 1.2.582.355 [id number] Univers 16:36:21 16:36:21 Encounter Ibrahima Busby 350.1.13.10 ity of [place] 4.2.7.2.686 [facility] [phone] [address] 2021-02-26 2021-02-26 Outpatient IBRAHIMA HERRERA [facility] [id number] Univers 15:00:00 15:57:07 IBRAHIMA SOMMER [facility] 2021-02-26 2021-02-26 Outpatient IBRAHIMA HERRERA [facility] [id number] Univers 15:00:00 15:57:07 IBRAHIMA SOMMER [facility] 2021-02-26 2021-02-26 Outpatient R IBRAHIMA SOMMER [facility] [id number] Univers 15:00:00 15:57:07 IBRAHIMA SOMMER [facility] 2021-02-26 2021-02-26 Office Saud [facility] 1.2.840.114 [id number] Univers 14:45:21 15:57:07 Visit Ibrahima Busby 350.1.13.10 it[place] 4[place]2.7.2.686 [place] [phone] Dc dical nal 092 [facility] 2021-02-26 2021-02-26 Office Saud [facility] 1.2.840.114 [id number] 14:45:21 15:57:07 Visit Ibrahima Bragg Praneeth 350.1.13.10 [place] 4.2.7.2.686 Professio [phone] [facility] [address] [place] [address] 2021-02-26 2021-02-26 Orders Doctor DONNA 1.2.840.114 [id number] Univers 00:00:00 00:00:00 Only Unassigned, JONATHAN 350.1.13.10 ity of [place] [facility] 4.2.7.2.686 Shawn as [phone] [address] 2021-02-08 2021-02-08 Office [facility] 1.2.840.114 [id number] Univers 11:00:38 11:41:35 Visit [facility] 350.1.13.10 it y of [place] 4.2.7.2.686 Shawn as Professio [phone] Dc dical [address] Office Building One 2021-02-08 2021-02-08 Outpatient R WENCESLAO [facility] [id number] Univers 11:00:00 11:00:00 DAMIAN [facility] 2021-02-06 2021-02-06 Telephone Wenceslao [facility] 1.2.840.114 [id number] Univers 00:00:00 00:00:00 Damian [facility] 350.1.13.10 it y of [place] 4.2.7.2.686 Shawn as Professio [phone] Dc dical nal [address] Office Building One 2021-01-15 2021-01-15 Orders Doctor DONNA 1.2.840.114 [id number] Univers 00:00:00 00:00:00 Only Unassigned, JONATHAN 350.1.13.10 ity of [place] [facility] 4.2.7.2.686 Shawn as [phone] [facility] [address] 2020-12-27 2020-12-27 Telephone Wenceslao [facility] 1.2.840.114 [id number] Univers 00:00:00 00:00:00 [facility] 350.1.13.10 it y of [place] 4.2.7.2.686 Shawn as Professio [phone] Dc dical nal [address] Office Building One 2020-12-13 2020-12-13 Case Radha Hanson 1.2.840.114 [id number] Univers 00:00:00 00:00:00 Management Margie Anderson 350.1.13.10 it[place].7.2.[place] [phone] [facility] [address] 2020-12-11 2020-12-11 [facility] [id number] Univers 14:17:31 23:59:00 JOEY [facility] 2020-12-11 2020-12-11 Outpatient [facility]ACK [facility] [id number] Univers 14:17:31 23:59:00 JOEY ity [facility] 2020-12-11 2020-12-11 [facility] 1.2.840.114 [id number] Univers 14:17:31 23:59:00 Encounter [facility] 350.1.13.10 ity of Surgical 4.2.7.2.686 Shawn as Specialti [phone] Dc dical es 809 [facility] 2020-12-11 2020-12-11 [facility] 1.2.840.114 [id number] Univers 14:05:22 14:20:22 Visit [facility] 350.1.13.10 it y of Surgical 4.2.7.2.686 Shawn as Specialti [phone] Dc dical es 198 [facility] 2020-12-05 2020-12-05 Outpatient R TONYA [facility] [id number] Univers 13:15:00 13:15:00 JOEY [facility] 2020-12-05 2020-12-05 [facility]phone [facility] 1.2.840.114 [id number] Univers 00:00:00 00:00:00 [facility] 350.1.13.10 it y of Surgical 4.2.7.2.686 Shawn as Specialti [phone] Dc dical es 198 [facility] 2020-11-09 2020-11-09 Laboratory Lab, Adc [facility] Po I [facility] 1.2. 840.114 [id number] Univers 15:05:03 15:25:03 Only Claudio Carrasquillo [facility] 350.1.13.10 ity of [place] 4.2.7.2.686 Shawn as Professio [phone] Dc dical nal [address] Office [facility] One 2020-11-09 2020-11-09 Outpatient R LION [facility] [id number] Univers 15:00:00 15:19:52 CLAUDIO [facility] 2020-11-09 2020-11-09 Office [facility] 1.2.840.114 [id number] Univers 14:17:20 14:32:20 Visit [facility] 350.1.13.10 it y of [place] 4.2.7.2.686 Shawn as Professio [phone] Dc dical nal [address] Office [facility] One 2020-11-05 2020-11-05 Refill [facility] 1.2.840.114 [id number] Univers 00:00:00 00:00:00 [facility] 350.1.13.10 it y of [place] 4.2.7.2.686 Shawn as Professio [phone] Dc dical nal [address] Office [facility] One 2020-09-18 2020-09-18 Refill [facility] 1.2.840.114 [id number] Univers 00:00:00 00:00:00 [facility] 350.1.13.10 it y of [place] 4.2.7.2.686 Shawn as Professio [phone] [address] One 2020-08-17 2020-08-17 Telephone [facility] 1.2.840.114 [id number] Univers 00:00:00 00:00:00 [facility] 350.1.13.10 it y of [place] 4.2.7.2.686 Shawn as Professio [phone] [address] 2020-08-15 2020-08-15 Office [facility] 1.2.840.114 [id number] Univers 15:29:43 16:05:45 Visit [facility] 350.1.13.10 it y of [place] 4.2.7.2.686 Shawn as Professio [phone] [address] 2020-08-15 2020-08-15 Outpatient R WENCESLAO [facility] [id number] Univers 15:30:00 15:30:00 DAMIAN [facility] 2020-08-15 2020-08-15 Telephone [facility] 1..840.114 [id number] Univers 00:00:00 00:00:00 [facility] 350.1.13.10 it y of [place] 4.2.7.2.686 Shawn as Professio [phone] [address] 2020-07-20 2020-07-20 Outpatient R SILVIO [facility] [id number] Univers 10:00:00 10:00:00 GEORGINA [facility] 2020-07-18 2020-07-18 Outpatient [facility] [id number] Univers 14:15:00 14:15:00 DAMIAN cristela [facility] 2020-07-04 2020-07-04 Outpatient R WENCESLAO [facility] [id number] Univers 09:30:00 09:30:00 DAMIAN [facility] 2020-06-20 2020-06-20 Blood Bank Specialist Lab, Adc [facility] Pob I [facility] 1.2. 840.114 [id number] Univers 11:09:56 11:18:42 Visit Damian Billy [facility] 350.1.13 .10 ity ab[place]be [place] 4.2.7.2.686 Shawn as Professio [phone] Dc dical nal [address] Office Building One 2020-06-20 2020-06-20 Office Wenceslao [facility] 1.2.840.114 [id number] Univers 10:10:47 10:40:47 Visit Damian [facility] 350.1.13.10 it y of [place] 4.2.7.2.686 Shawn as Professio [phone] Dc dical nal [address] Office Building One 2020-06-20 2020-06-20 Outpatient R [facility]ENCESLAO [facility] [id number] Univers 10:15:00 10:15:00 [facility] 2020-05-21 2020-05-21 (TEL) STLMLC STLMLC [id number] Co mmon 00:00:00 00:00:00 [facility] 2020-05-21 2020-05-21 NO CHARGE STLMLC STLMLC [id number] Common 00:00:00 00:00:00 [facility] 2018-11-08 2018-11-08 Outpatient [id number] Common 11:45:00 11:45:00 t [facility] it Drive [facility] Results Test Description Test Time Test Comments Results Result Comments Source MAGNESIUM 2022-05-03 17:09:05 Test Item Value Reference Range Interpretation Comme nts MAGNESIUM (test code = 1230147684) 1.3 mg/dL 1.7-2.4 L Lab Interpretation (test code = 31329-7) Abnormal [facility] (NA, K, CL, CO2, GLUCOSE, BUN, CREATININE, CA)2022-05-03 17:08:44 Test Item Value Reference Range Interpretation Comments NA (test code = 138 mmol/L 135-145 8609610001) K (test code = 3.2 mmol/L 3.5-5 L 5295235445) CL (test code = 104 mmol/L 98-108 5235043944) CO2 TOTAL (test code = 31 mmol/L 23-31 5467346260) AGAP (test code = 2-16 1969985885) BUN (test code = 9 mg/dL 7-23 3023869282) GLUCOSE (test code = 113 mg/dL 70-110 H 0769136887) CREATININE (test code = 0.39 mg/dL 0.5-1.04 L 8493824911) CALCIUM (test code = 7.2 mg/dL 8.6-10.6 L 6371742679) eGFR (test code = mL/min/1.73m2 4254359817) THI (test code = THI) Association of [...] tests). Lab Interpretation Abnormal (test code = 52654-6) [facility].2022-05-01 00:00:20 Test Item Value Reference Range Interpretation Comments PH (test code = 2) 7.35-7.45 PCO2 (test code = See_Comment H [Automate d message] 7971220960) The system [employer] generated this result transmitted ref erence range: 35 - 45 mmHg. The reference r radha was not used to interpret this result as normal/abnor mal. PO2 (test code = See_Comment H [Automated message] 2243980219) The system [employer] generated this result transmitted ref erence range: 80 - 100 mmHg. The reference r radha was not used to interpret this result as normal/abnor mal. HCO3 (test code = See_Comment H [Automate d message] 4763233961) The system [employer] generated this result transmitted ref erence range: 22 - 26 mEq/L. The reference r radha was not used to interpret this result as normal/abnor mal. BE (test code = See_Comment H [Automated message] 0806222302) The system [employer] generated this result transmitted ref erence range: -3.0 - 3 .0 mEq/L. The refe rence range was not u sed to interpret this result as normal/abnor mal. Lab Interpretation (test Abnormal code = 36825-7) [facility] Arterial Blood Gas.2022-04-30 15:53:27 Test Item Value Reference Range Interpretation Comments PH (test code = 2) 7.35-7.45 PCO2 (test code = See_Comment H [Automate d message] 0258540290) The system [employer] generated this result transmitted ref erence range: 35 - 45 mmHg. The reference r radha was not used to interpret this result as normal/abnor mal. PO2 (test code = See_Comment L [Automated message] 7553275888) The system [employer] generated this result transmitted ref erence range: 80 - 100 mmHg. The reference r radha was not used to interpret this result as normal/abnor mal. HCO3 (test code = See_Comment H [Automate d message] 1496679813) The system [employer] generated this result transmitted ref erence range: 22 - 26 mEq/L. The reference r radha was not used to interpret this result as normal/abnor mal. BE (test code = See_Comment H [Automated message] 2549875832) The system [employer] generated this result transmitted ref erence range: -3.0 - 3 .0 mEq/L. The refe rence range was not u sed to interpret this result as normal/abnor mal. Lab Interpretation (test Abnormal code = 84913-1) [facility] NEED[facility] ASPIRATION BY [id number] 16:25:00Medical Cytology Report Case: [id number] Authorizing Provider: Holly Mckeon Collected: 12/28/2018 09Glenis Estrella MD Ordering Location: [facility] Endoscopy Received: 12/28/2018 1103 Services Pathologist: Salvador Begum MD Specimen: Pancreas PANCREAS CYST FNA BY CLINICIAN (CYTOSPINS AND CELL BLOCK OF ASPIRATE): - NEGATIVE FOR MALIGNANCY - The mucin stain is negative Signing Pathologist Direct Phone Line: [phone] signed by Salvador Begum MD on 12/29/2018 at4:25 PMThe mucin stain is negative and the control slide shows positive staining as expected.82377, 96892, 67271Arqz cysts in the pancreas, largest measuring 2.0 cmPANCREAS CYST FNA27 mls in cytorich red; 4 cytospins, 1 mucin stain, cell blockCollected: [id number]: [id number] interpretation of thiscase included the use of immunohistochemistry or special stains. MUCINImmunohistochemistry technicaltesting was performed at [facility], Pathology Laboratory where it was [...] qualified to perform high complexity clinical laboratory testing.[facility], Department of Pathology, [address] [place] [address] 53878, [facility], [facility] of [facility], [address] [place] [address] 14207, [facility], Department of Pathology, [address] [place] [address] 56179, NJKKBF [id number] 10:28:00Surgical Pathology Report Case: [id number] Authorizing Provider: Holly Mckeon Collected: 12/28/2018 0924 MD eDlores Ordering Location: [facility] Endoscopy Received: 12/28/2018 1253 Services Pathologist: Kurtis Luna MD Specimen: Ampulla PART A AMPULLARY BIOPSY:PARTIALLY DENUDED NON-N EOPLASTIC SMALL INTESTINAL MUCOSA WITHOUT SIGNIFICANT HISTOPATHOLOGIC ALTERATION.NEGATIVE FOR DYSPLASIA OR INVASIVE CARCINOMA. Signing Pathologist Direct Phone Line: [phone] signed by Kurtis Luna MD on 12/29/2018 at 10:28 [id number] pancreatic lesionampullaThe container is labeled "ampulla" and consists of a single piece of leung-white tissue measuring 2 x 1 x 1 mm and a single piece of feathery white tissue measuring approximately the same dimension submitted entirely in cassette A. TW/bcPERFORMEDAMYLASE, BODY [id number] 13:26:00 Test Item Value Reference Range Interpretation Comments AMYLASE FLUID (BEAKER) (test code = > U/L 350) Absence of reference range indicates that normals have not been defined.Assay performance has not been validated for this type of specimen.FINE NEEDLE ASPIRATE (FNA) [id number] 13:00:00 Test Item Value Reference Range Interpretation Comments CYTOLOGY RESULT POINTER See Separate Report (BEAKER) (test code = 2629)
--- NOTE | 2022-07-25 19:45 | RAD REPORT ---
EXAM DESCRIPTION: Roby Single View07/25/2022 7:33 pm CLINICAL HISTORY: Chest pain COMPARISON: July 17, 2022 FINDINGS: Bilateral pulmonary opacities are unchanged and likely chronic Lungs appear clear of acute infiltrate. The heart is mildly to moderately enlarged IMPRESSION: No acute abnormalities displayed
[2022-07-25] MEDS ORDERED: MORPHINE 4 MG/ML SYR ONE (20:03)
[2022-07-25] MEDS ORDERED: ONDANSETRON 4 MG/2 ML VIAL ONE (20:03)
[2022-07-25 20:16] LABS: Absolute Lymphocytes (CBC) 1.2 K/uL (0.7-4.9); Hematocrit 41.4 % (36.0-45.0); Lymphocytes % 22.3 % (15.3-44.8); MCV 88.9 fL (80-100); MPV 8.1 fL (7.6-11.3); RBC Red Blood Cell Count 4.66 M/uL (3.86-4.86)
[2022-07-25 20:17] LABS: Protime INR 1.05
[2022-07-25 20:54] LABS: ALT/SGPT 26 U/L (12-78); Albumin 3.4 g/dL (3.4-5.0); Alkaline Phosphatase 93 U/L (45-117); BUN Blood Urea Nitrogen 4 mg/dL (7-18); Bilirubin Total 0.2 mg/dL (0.2-1.0); Glomerular Filtration Rate 105 ml/min (=/>90); Glucose Level 136 mg/dL (74-106); Lipase 86 U/L (73-393); NT PRO-BNP 34 pg/mL (<125); Protein, Total 7.4 g/dL (6.4-8.2); Sodium Level 139 mmol/L (136-145); Troponin High Sensitivity 14.7 pg/mL (<58.9)
[2022-07-25 20:56] LABS: AST/SGOT 23 U/L (15-37); Bilirubin Direct < 0.1 mg/dL (0-0.2); Potassium 3.8 mmol/L (3.5-5.1)
[2022-07-25 20:57] LABS: Magnesium 1.8 mg/dL (1.8-2.4)
[2022-07-25 20:58] LABS: Bicarbonate > 45 mmol/L (21-32)
--- NOTE | 2022-07-25 21:21 | ER ---
Nurse's Notes [facility] Name: Mila Whiting Age: 66 yrs Sex: Female : 1955 Arrival Date: 07/25/2022 Time: 18:55 Bed 3 Private MD: Diagnosis: Acute and chronic respiratory failure with hypercapnia;Chest pain, unspecified Presentation: 07/25 19:02 Chief complaint: EMS states: pt complaining of chest pain that started a couple weeks mb9 ago. Coronavirus screen: At this time, the client does not indicate any symptoms associated with coronavirus-19. Ebola Screen: No symptoms or risks identified at this time. Initial Sepsis Screen: Does the patient meet any 2 criteria? RR > 20 per min. HR > 90 bpm. Yes Does the patient have a suspected source of infection? No. Patient's initial sepsis screen is negative. Risk Assessment: Do you want to hurt yourself or someone else? Patient reports no desire to harm self or others. 19:02 Method Of Arrival: EMS: [facility] mb9 19:02 Acuity: CRISTY 3 mb9 20:11 Onset of symptoms was July 25, 2022. kd3 Triage Assessment: 20:10 General: Appears uncomfortable, Behavior is calm, cooperative. Pain: Complains of pain kd3 in chest Pain does not radiate. Neuro: Level of Consciousness is awake, alert, obeys commands, Oriented to person, place, time, situation. Cardiovascular: Patient's skin is warm and dry. Respiratory: Airway is patent Trachea midline Respiratory effort is even, unlabored, Respiratory pattern is regular, symmetrical. GI: No signs and/or symptoms were reported involving the gastrointestinal system. : No signs and/or symptoms were reported regarding the genitourinary system. Historical: - Allergies: 19:04 Stadol; mb9 19:04 liquid magnesium; mb9 - PMHx: 19:04 acid reflux; COPD; Anxiety; Hypertension; spinal stenosis; Home O2 3L NC; mb9 - PSHx: 19:04 Cholecystectomy; hernia repair; right ankle sx; mb9 - Immunization history:: Adult Immunizations up to date. - Social history:: Smoking status: unknown. Screenin:10 Abuse screen: Denies threats or abuse. Denies injuries from another. Nutritional kd3 screening: No deficits noted. Tuberculosis screening: No symptoms or risk factors identified. Fall Risk IV access (20 points). Assessment: 20:11 General: Appears uncomfortable, Behavior is calm, cooperative. Neuro: Level of kd3 Consciousness is awake, alert, obeys commands, Oriented to person, place, time, situation. Respiratory: Airway is patent Trachea midline Respiratory effort is even, unlabored. 21:30 Reassessment: Pt is resting in bed with eyes closed, respirations are even and jb4 unlabored with no s/s of pain or distress noted. 22:53 Reassessment: No changes from previously documented assessment. Patient and/or family kd3 updated on plan of care and expected duration. Pain level reassessed. Patient is alert, oriented x 3, equal unlabored respirations, skin warm/dry/pink. 07/26 00:00 Reassessment: Pt is resting in bed with eyes closed, respirations are even and jb4 unlabored with no s/s of pain or distress noted. remains on bi-pap. Vital Signs: 07/25 19:02 BP 126 / 78; Pulse 106; Resp 22; Pulse Ox 99% on 3 lpm NC; Weight 81.65 kg; Height 5 mb9 ft. 1 in. (154.94 cm); 19:05 BP 156 / 77; Pulse 110; Resp 24; Temp 98.9(O); Pulse Ox 100% on 3 lpm NC; Pain 8/10; mb9 20:12 BP 126 / 67; Pulse 109; Resp 17; Pulse Ox 100% on 3 lpm NC; kd3 21:15 BP 114 / 59; Pulse 108; Resp 18; Pulse Ox 94% on BiPAP; jb4 22:52 Pulse 102; Resp 18; Pulse Ox 92% on BiPAP; kd3 07/26 00:15 BP 115 / 61; Pulse 102; Resp 15; Pulse Ox 94% on 50% BiPAP; jb4 07/25 19:02 Body Mass Index 34.01 (81.65 kg, 154.94 cm) mb9 ED Course: 07/25 18:55 Patient arrived in ED. em1 18:56 Zaheer Mendez PA is PHCP. cp 18:56 Zaheer Ugarte MD is Attending Physician. cp 19:04 Triage completed. mb9 19:04 Arm band placed on. mb9 19:05 Placed in gown. Bed in low position. Call light in reach. Side rails up X 1. Client mb9 placed on continuous cardiac and pulse oximetry monitoring. NIBP monitoring applied. telemetry monitor on. 19:18 Mj Dawkins, RN is Primary Nurse. jb4 19:35 XRAY Chest (1 view) In Process Unspecified. EDMS 20:02 Initial lab(s) drawn, by me, sent to lab. Inserted saline lock: 24 gauge in left tw5 forearm, using aseptic technique. Blood collected. 20:06 Stephan Estes MD is Attending Physician. cp 20:13 Troponin HS Sent. kd3 20:13 PT-INR Sent. kd3 20:13 NT PRO-BNP Sent. kd3 20:13 Magnesium Sent. kd3 20:13 LFT's Sent. kd3 20:13 CBC with Diff Sent. kd3 20:13 Basic Metabolic Panel Sent. kd3 20:13 Lipase Sent. kd3 20:57 Notified Nurse Practitioner and/or Physician Activity Aid of a critical lab result(s), CO2 tw5 greater than 45. 21:20 Lakhwinder Ackerman MD is Hospitalizing Provider. cp 22:28 Missed attempt(s): 22 gauge in left antecubital area. Bleeding controlled, band aid tw5 applied, catheter tip intact. 07/26 01:13 No provider procedures requiring assistance completed. Patient transferred, IV remains jb4 in place. Administered Medications: 07/25 20:10 Drug: morphine 4 mg Route: IVP; Infused Over: 4 mins; Site: left forearm; kd3 23:01 Follow up: Response: No adverse reaction; Pain is decreased kd3 20:10 Drug: Zofran (Ondansetron) 4 mg Route: IVP; Site: left forearm; kd3 23:01 Follow up: Response: No adverse reaction kd3 23:01 Drug: Ketorolac 15 mg Route: IVP; Site: left forearm; kd3 23:01 Drug: Magnesium Sulfate 1 grams Route: IVPB; Infused Over: 1 hrs; Site: left forearm; kd3 Medication: 20:10 VIS not applicable for this client. kd3 Outcome: 21:21 Decision to Hospitalize by Provider. cp 07/26 01:14 Admitted to Med/surg accompanied by nurse, room 205, Report called to [place] [id number] Condition: stable Instructed on the need for admit. 01:14 Patient left the ED. jb4 Signatures: Dispatcher [employer] EDVinny Funes em1 Zaheer Mendez PA PA cp Bryson, James RN RN jb4 Roselyn Good tw5 Jessica Mccarty RN RN kd3 Morales, Maria A Martin RN RN mb9
--- NOTE | 2022-07-25 21:22 | EDPHYS ---
Physician Documentation [facility] Name: Mila Whiting Age: 66 yrs Sex: Female : 1955 Arrival Date: 07/25/2022 Time: 18:55 Bed 3 Private MD: ED Physician Stephan Estes HPI: 07/25 19:05 This 66 yrs old Black Female presents to ER via EMS with complaints of Chest Pain. cp Historical: - Allergies: 19:04 Stadol; mb9 19:04 liquid magnesium; mb9 - PMHx: 19:04 acid reflux; COPD; Anxiety; Hypertension; spinal stenosis; Home O2 3L NC; mb9 - PSHx: 19:04 Cholecystectomy; hernia repair; right ankle sx; mb9 - Immunization history:: Adult Immunizations up to date. - Social history:: Smoking status: unknown. ROS: 19:10 Constitutional: Negative for body aches, chills, fever, poor PO intake. cp 19:10 Eyes: Negative for injury, pain, redness, and discharge. cp 19:10 ENT: Negative for drainage from ear(s), ear pain, sore throat, difficulty swallowing, difficulty handling secretions. 19:10 Cardiovascular: Positive for chest pain, Negative for edema, palpitations. 19:10 Respiratory: Positive for shortness of breath, Negative for cough. 19:10 Abdomen/GI: Negative for abdominal pain, nausea, vomiting, and diarrhea. 19:10 : Negative for urinary symptoms. 19:10 Neuro: Negative for altered mental status, weakness. 19:10 All other systems are negative. Exam: 19:15 Constitutional: The patient appears in no acute distress, alert, awake, cp non-diaphoretic, non-toxic, well developed, well nourished, uncomfortable. 19:15 Head/Face: Normocephalic, atraumatic. cp 19:15 Eyes: Periorbital structures: appear normal, Conjunctiva: normal, no exudate, no injection, Sclera: no appreciated abnormality, Lids and lashes: appear normal, bilaterally. 19:15 ENT: External ear(s): are unremarkable, Nose: is normal, Mouth: Lips: moist, Oral cp mucosa: pink and intact, moist, Posterior pharynx: Airway: no evidence of obstruction, patent, swelling, is not appreciated, erythema, is not appreciated, exudate, is not appreciated. 19:15 Neck: ROM/movement: is normal, is supple, without pain, no range of motions cp limitations, no meningismus. 19:15 Chest/axilla: Inspection: normal, Palpation: crepitus, is not appreciated, tenderness, that is moderate, of the mid-sternal area. 19:15 Cardiovascular: Rate: tachycardic, Rhythm: regular, Edema: is not appreciated, JVD: is not appreciated. 19:15 Respiratory: the patient does not display signs of respiratory distress, Respirations: labored breathing, that is mild, Breath sounds: decreased breath sounds, that are moderate, diffuse, stridor, is not appreciated, wheezing: is not appreciated. 19:15 Abdomen/GI: Inspection: abdomen appears normal, Palpation: abdomen is soft and non-tender, in all quadrants. 19:15 Skin: cellulitis, is not appreciated, no rash present. 19:15 Neuro: Orientation: to person, place \T\ time. Mentation: able to follow commands, slow to respond, Motor: moves all fours, strength is normal, Sensation: no obvious gross deficits. 19:39 ECG was reviewed by the Attending Physician. cp Vital Signs: 19:02 BP 126 / 78; Pulse 106; Resp 22; Pulse Ox 99% on 3 lpm NC; Weight 81.65 kg; Height 5 mb9 ft. 1 in. (154.94 cm); 19:05 BP 156 / 77; Pulse 110; Resp 24; Temp 98.9(O); Pulse Ox 100% on 3 lpm NC; Pain 8/10; mb9 20:12 BP 126 / 67; Pulse 109; Resp 17; Pulse Ox 100% on 3 lpm NC; kd3 21:15 BP 114 / 59; Pulse 108; Resp 18; Pulse Ox 94% on BiPAP; jb4 22:52 Pulse 102; Resp 18; Pulse Ox 92% on BiPAP; kd3 07/26 00:15 BP 115 / 61; Pulse 102; Resp 15; Pulse Ox 94% on 50% BiPAP; jb4 07/25 19:02 Body Mass Index 34.01 (81.65 kg, 154.94 cm) mb9 MDM: 07/25 18:56 Patient medically screened. jesus 19:00 Differential diagnosis: abnormal EKG, acute myocardial infarction, pericarditis, cp pleurisy, pneumonia, pneumothorax, pulmonary embolus, stable angina, unstable angina. 21:20 Data reviewed: vital signs, nurses notes, lab test result(s), EKG, radiologic studies, cp plain films. 21:20 Test interpretation: by ED physician or midlevel provider: ECG, plain radiologic cp studies. 22:29 ED course: Patient refused placement of new IV needed to have CT chest for PE. 07/25 18:57 Order name: Basic Metabolic Panel; Complete Time: 21:11 07/25 21:14 Interpretation: Normal except: CL 88; CO2 > 45; GLUC 136; BUN 4; CRE 0.47. 07/25 18:57 Order name: CBC with Diff; Complete Time: 20:58 07/25 18:57 Order name: LFT's; Complete Time: 21:11 07/25 18:57 Order name: Magnesium; Complete Time: 21:11 07/25 18:57 Order name: NT PRO-BNP; Complete Time: 21:11 07/25 18:57 Order name: PT-INR; Complete Time: 20:58 07/25 18:57 Order name: Troponin HS; Complete Time: 21:11 07/25 18:57 Order name: XRAY Chest (1 view); Complete Time: 20:58 07/25 18:57 Order name: Lipase; Complete Time: 21:11 07/25 20:58 Order name: ABG; Complete Time: 22:42 07/25 21:16 Order name: COVID-19/FLU A+B; Complete Time: 00:24 07/25 22:36 Order name: ABG Arterial Blood Gas; Complete Time: 22:46 [facility] 07/26 01:04 Order name: ABG Arterial Blood Gas [facility] 07/25 18:57 Order name: EKG; Complete Time: 18:58 07/25 18:57 Order name: Cardiac monitoring; Complete Time: 19:18 07/25 18:57 Order name: EKG - Nurse/Tech; Complete Time: 19:50 07/25 18:57 Order name: IV Saline Lock; Complete Time: 20:13 07/25 18:57 Order name: Labs collected and sent; Complete Time: 20:13 07/25 18:57 Order name: O2 Per Protocol; Complete Time: 19:18 cp 07/25 18:57 Order name: O2 Sat Monitoring; Complete Time: 19:18 cp 07/25 21:15 Order name: BIPAP cp EC:39 Rate is 101 beats/min. Rhythm is regular. WV interval is normal. QRS interval is normal cp at 90 msec. QT interval is normal. Interpreted by me. Reviewed by me. Administered Medications: 20:10 Drug: morphine 4 mg Route: IVP; Infused Over: 4 mins; Site: left forearm; kd3 23:01 Follow up: Response: No adverse reaction; Pain is decreased kd3 20:10 Drug: Zofran (Ondansetron) 4 mg Route: IVP; Site: left forearm; kd3 23:01 Follow up: Response: No adverse reaction kd3 23:01 Drug: Ketorolac 15 mg Route: IVP; Site: left forearm; kd3 23:01 Drug: Magnesium Sulfate 1 grams Route: IVPB; Infused Over: 1 hrs; Site: left forearm; kd3 Disposition: 07/26 03:04 Co-signature as Attending Physician, Stephan Estes MD. rn Disposition Summary: 07/25/22 21:21 Hospitalization Ordered Hospitalization Status: Inpatient Admission cp Provider: Lakhwinder Ackerman cp Location: Telemetry/MedSurg (Inpatient) cp Condition: Stable cp Problem: an acute exacerbation cp Symptoms: have improved cp Bed/Room Type: Standard cp Room Assignment: 205(07/26/22 00:02) cg Diagnosis - Acute and chronic respiratory failure with hypercapnia cp - Chest pain, unspecified cp Forms: - Medication Reconciliation Form cp - SBAR form cp Signatures: Dispatcher [employer] Zaheer Duong MD MD cha Nieto, Roman, MD MD rn Page, Corey, PA PA cp Garcia, Cindy, RN RN cg Doucette, Kyli, RN RN hector3 Joyce Mckeon PA-C PA-C sb4 Breneman, Mary Beth RN RN mb9 Corrections: (The following items were deleted from the chart) 00:02 07/25 21:21 cp cg 07/26 06:14 07/25 19:15 Eyes: Periorbital structures: appear normal, Conjunctiva: normal, no cp exudate, no injection, Sclera: no appreciated abnormality, cp
[2022-07-25 22:30] LABS: Arterial Blood Carboxyhemoglob 1.2 % (0-1.5); Blood Gas Oxyhemoglobin 90.4 % (94-97); Blood O2 Saturation 92.6 % (92-98.5)
[2022-07-25 22:37] LABS: Arterial Blood Carboxyhemoglob 1.2 % (0-1.5); Blood Gas Oxyhemoglobin 87.7 % (94-97); Blood O2 Saturation 89.8 % (92-98.5)
[2022-07-25] MEDS ORDERED: MAGNESIUM SULFATE 1 gm IVPB 1 GM/100 ML BAG IV ONE (22:55)
[2022-07-25] MEDS ORDERED: KETOROLAC 30 MG/ML INJ ONE (22:55)
--- NOTE | 2022-07-25 23:05 | P.HP ---
Certification for Inpatient Patient admitted to: Inpatient With expected LOS: >2 Midnights Patient will require the following post-hospital care: None Practitioner: I am a practitioner with admitting privileges, knowledge of patient current condition, hospital course, and medical plan of care. 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 She was initially tachycardic and tachypneic saturating 99% on 3L NC (her baseline). EKG with nonspecific ST abnormality. Troponin within normal limits. Chest x-ray without acute abnormalities. Covid/flu negative. ABG with pH of 7.2, PCO2 148. Bicarb 51.6. She was immediately placed on BiPAP and given morphine, Zofran, magnesium, and ketorolac. About an hour after, repeat ABG was done which showed a pH of 7.2, PCO2 134, PO2 of 63.8, bicarb 51.4. CT chest angio to rule out PE could not be completed due to lack of IV access and patient refused any more attempts. Patient is admitted for further management. Home medications list reviewed: Yes - Past Medical/Surgical History Diabetic: No -: Hypertension -: Hepatitis C-treated -: COPD on Home Oxygen -: Anxiety -: Hernia -: Spinal Stenosis -: GERD -: Cholecystectomy -: Right ankle surgery -: Hernia Repair Psychosocial/ Personal History: Lives at home alone - Family History Mother -: Hypertension, Diabetes Father -: Hypertension, Diabetes - Social History Smoking Status: Current every day smoker Alcohol use: No CD- Drugs: No Caffeine use: Yes Place of Residence: Home <Joyce Mckeon - Last Filed: 07/26/22 03:47> Date of Service: 07/26/22 <Lakhwinder Ackerman - Last Filed: 07/26/22 12:17> Allergies butorphanol tartrate [From Stadol] Allergy (Severe, Verified 07/26/22 01:53) seizures magnesium sulfate Allergy (Severe, Verified 07/26/22 01:53) Anaphylaxis Home Medications: Unobtainable 07/26/22 Review of Systems Respiratory: Shortness of Breath Cardiovascular: Chest Pain <Joyce Mckeon - Last Filed: 07/26/22 03:47> Physical Examination - Physical Exam General: Alert, In no apparent distress HEENT: Atraumatic, PERRLA, EOMI, Sclerae nonicteric Neck: Supple, 2+ carotid pulse no bruit, No LAD, Without JVD or thyroid abnormality Respiratory: Crackles/rales, Expiratory wheezes Cardiovascular: Regular rate/rhythm, Normal S1 S2 Gastrointestinal: Normal bowel sounds, No tenderness Musculoskeletal: No tenderness Integumentary: No rashes Neurological: Normal speech, Normal strength at 5/5 x4 extr, Normal tone, Normal affect - Studies Laboratory Data (last 24 hrs) 07/25/22 19:58: PT 11.5, INR 1.05 07/25/22 19:58: WBC 5.30, Hgb 12.4, Hct 41.4, Plt Count 216 07/25/22 19:58: Sodium 139, Potassium 3.8, BUN 4 L, Creatinine 0.47 L, Glucose 136 H, Magnesium 1.8, Total Bilirubin 0.2, AST 23, ALT 26, Alkaline Phosphatase 93, Lipase 86 <Joyce Mckeon - Last Filed: 07/26/22 03:47> - Studies Laboratory Data (last 24 hrs) 07/25/22 19:58: PT 11.5, INR 1.05 07/25/22 19:58: WBC 5.30, Hgb 12.4, Hct 41.4, Plt Count 216 07/25/22 19:58: Sodium 139, Potassium 3.8, BUN 4 L, Creatinine 0.47 L, Glucose 136 H, Magnesium 1.8, Total Bilirubin 0.2, AST 23, ALT 26, Alkaline Phosphatase 93, Lipase 86 <Lakhwinder Ackerman - Last Filed: 07/26/22 12:17> Assessment and Plan - Problems (Diagnosis) (1) Acute respiratory failure with hypercapnia Current Visit: Yes Status: Acute (2) COPD exacerbation Current Visit: Yes Status: Acute (3) GERD (gastroesophageal reflux disease) Current Visit: Yes Status: Chronic Qualifiers: Esophagitis presence: without esophagitis Qualified Code(s): K21.9 - Gastro-esophageal reflux disease without esophagitis (4) Hypertension Current Visit: Yes Status: Chronic Qualifiers: Hypertension type: primary hypertension Qualified Code(s): I10 - Essential (primary) hypertension - Plan Hypercapnia improving with BiPAP. Patient is chronically hypercapnic but with acute exacerbation today. Continue BiPAP as needed Pulmonology consulted. Scheduled steroids, as needed nebulizer treatments. Patient with home oxygen. Incentive spirometry encouraged. Repeat troponin. Monitor on telemetry. Normal echocardiogram November 2021. Consider VQ scan if chest pain persists. CTA chest unable to be completed apurva engely to lack of IV access. Monitor and replete electrolytes per protocol. Reconcile and continue home medications. Lovenox for VTE prophyalxis. Full code. Discharge Plan: Home Plan to discharge in: Greater than 2 days - Advance Directives Does patient have a Living Will: Yes Does patient have a Durable POA for Healthcare: No - Code Status/Comfort Care Code Status Assessed: Yes Code Status: Full Code Critical Care: No Time Spent Managing Pts Care (In Minutes): 50 <Joyce Mckeon - Last Filed: 07/26/22 03:47> Physician Review: Patient Assessed, Agree with Above Assessment and Plan <Lakhwinder Ackerman - Last Filed: 07/26/22 12:17>
[2022-07-25 23:59] LABS: SARS-COV-2 RT PCR NEGATIVE (NEGATIVE)
[2022-07-26 01:01] LABS: Arterial Blood Carboxyhemoglob 1.3 % (0-1.5); Blood Gas Oxyhemoglobin 88.2 % (94-97); Blood O2 Saturation 90.4 % (92-98.5)
[2022-07-26] MEDS ORDERED: ALBUTEROL 2.5 MG/3 ML NEB SOL NEB PRN (01:40)
[2022-07-26 03:01] VITALS: BMI 28.3
[2022-07-26 06:45] LABS: Blood O2 Saturation 87.8 % (92-98.5)
[2022-07-26 06:46] LABS: Arterial Blood Carboxyhemoglob 1.6 % (0-1.5); Blood Gas Oxyhemoglobin 85.1 % (94-97)
[2022-07-26 06:59] LABS: Hematocrit 37.5 % (36.0-45.0); Lymphocytes % 26.7 % (15.3-44.8); MCV 89.5 fL (80-100); MPV 8.3 fL (7.6-11.3)
[2022-07-26 07:02] LABS: Urine Bilirubin NEGATIVE (Negative); Urine Blood Negative (Negative); Urine Clarity Clear (Clear); Urine Color Yellow (Yellow); Urine Glucose TRACE (Negative); Urine Mucus 1+ /HPF (None Seen); Urine Protein TRACE (Negative); Urine RBC <5 /HPF (None Seen); Urine Urobilinogen Normal (Normal)
[2022-07-26 07:53] LABS: BUN Blood Urea Nitrogen 6 mg/dL (7-18); Glomerular Filtration Rate 108 ml/min (=/>90); Glucose Level 111 mg/dL (74-106); HDL Cholesterol 69 mg/dL (40-60); LDL Cholesterol, Calculated 85 mg/dL (<130); Magnesium 2.1 mg/dL (1.8-2.4); Phosphorus 2.7 mg/dL (2.5-4.9); Potassium 3.8 mmol/L (3.5-5.1); Sodium Level 136 mmol/L (136-145)
[2022-07-26 07:59] LABS: Bicarbonate > 45 mmol/L (21-32)
[2022-07-26] MEDS: ENOXAPARIN 40 MG/0.4 ML SQ SCH (08:14)
[2022-07-26] MEDS ORDERED: METHYLPREDNISOLONE 40 MG INJ IV SCH (09:00)
[2022-07-26] MEDS ORDERED: BUSPIRONE HCL 5 MG TABLET PO SCH (09:16)
--- NOTE | 2022-07-26 09:27 | P.CNS ---
Date of Consult: 07/26/22 Reason for Consult: Respiratory failure Chief Complaint: Hypercapnic Respiratory Failure History of Present Illness: Patient is 66 years of age well-known to me terminal COPD mated with worsening hypercapnia aspiratory acidosis has is chronic sternal pain seen in my office last week was given a steroid injection and does take Valium at home pain medication that may have precipitated this event she also has a noninvasive ventilator eyes any fever or chills Allergies butorphanol tartrate [From Stadol] Allergy (Severe, Verified 07/26/22 01:53) seizures magnesium sulfate Allergy (Severe, Verified 07/26/22 01:53) Anaphylaxis Home Medications: Unobtainable 07/26/22 - Past Medical/Surgical History Diabetic: No -: Hypertension -: Hepatitis C-treated -: COPD on Home Oxygen -: Anxiety -: Hernia -: Spinal Stenosis -: GERD -: Cholecystectomy -: Right ankle surgery -: Hernia Repair Psychosocial/ Personal History: Lives at home alone - Family History Mother Medical History: Hypertension, Diabetes Father Medical History: Hypertension, Diabetes - Social History Smoking Status: Unknown if ever smoked Alcohol use: No CD- Drugs: No Caffeine use: Yes Place of Residence: Home Review of Systems General: Weakness Respiratory: Shortness of Breath, Hemoptysis Physical Examination Temp Pulse Resp BP Pulse Ox 98.4 F 106 H 18 133/66 95 07/26/22 04:00 07/26/22 04:00 07/26/22 04:00 07/26/22 04:00 07/26/22 04:00 General: Alert, In no apparent distress, Oriented x3 Neck: Supple Respiratory: Clear to auscultation bilaterally, Diminished Cardiovascular: No edema, Regular rate/rhythm, Normal S1 S2 Gastrointestinal: Normal bowel sounds, Soft and benign Musculoskeletal: No clubbing Laboratory Data (last 24 hrs) 07/25/22 19:58: PT 11.5, INR 1.05 07/25/22 19:58: WBC 5.30, Hgb 12.4, Hct 41.4, Plt Count 216 07/25/22 19:58: Sodium 139, Potassium 3.8, BUN 4 L, Creatinine 0.47 L, Glucose 136 H, Magnesium 1.8, Total Bilirubin 0.2, AST 23, ALT 26, Alkaline Phosphatase 93, Lipase 86 - Problems (1) Acute and chronic respiratory failure ([id number]) Current Visit: No Status: Acute Plan: Patient is 66 years of age with terminal COPD hypoxic hypercapnic respiratory failure CO2 is well above 100 patient's bicarb is also elevated we will plan for some IV Diamox IV fluids and request that she be put on her Valium and pain pills before she use the BiPAP mask does have Valium and pain pills that were prescribed by her primary care doctor no acute changes on the chest x-ray Qualifiers: Respiratory failure complication: hypoxia and hypercapnia
[2022-07-26] MEDS ORDERED: ACETAZOLAMIDE 500 MG IV IV SCH (10:00)
--- NOTE | 2022-07-26 10:44 | RAD REPORT ---
EXAM DESCRIPTION: CT - Thorax Wo Con - 07/26/2022 10:05 am CLINICAL HISTORY: Respiratory failure chest pain COMPARISON: Head Brain Wo Cont dated 09/22/2020; Head Brain Wo Cont dated 07/04/2020Chest Single View dated 11/04/2021; Chest Single View dated 07/24/2021; Chest Single View dated 03/11/2021; Chest Single V iew dated 11/13/2020hest For Pe Angio dated 04/14/2022; Chest For Pe Angio dated 10/28/2021; Chest For Pe Angio dated 12/27/2020; THORAX WO CONTRAST dated 11/08/2015Chest For Pe Angio dated 04/14/2022; Chest For Pe Angio dated 10/28/2021; Chest For Pe Angio dated 12/27/2020; THORAX WO CONTRAST dated 11/08/2015 ; Chest Single View dated 07/25/2022; Abdomen Pelvis W Contrast dated 04/10/2022 FINDINGS: Chest Wall: No suspicious thyroid nodules or pathologic lymphadenopathy. Lungs: No acute abnormality. Scarring in the lingula. Pleura: No significant effusions or pneumothorax. Mediastinum/valeriano: No pathologic lymphadenopathy. Pulmonary arteries/Aorta: Limited evaluation without contrast. No aortic aneurysm. Enlarged pulmonary arteries. Heart: No significant pericardial effusion. Normal heart size. Multi-vessel coronary artery disease. Aortic root calcifications . Upper abdomen: Cholecystectomy. Cirrhotic liver morphology. Cystic pancreatic lesions. These are not well assessed. Bones: New T5 compression fracture with approximately 30% loss of height. Minimal bony retropulsion. This is new since 04/14/2022. Mild T3 compression deformity. All CT scans are performed using dose optimization technique as appropriate and may include automated exposure control or mA/KV adjustment according to patient size. IMPRESSION: No acute findings within the chest. Enlarged main pulmonary artery is may reflect pulmon akshat artery hypertension. T5 compression fracture which is new since 04/14/2022 but favored subacute. Correlate clinically. Cirrhotic liver morphology.
--- NOTE | 2022-07-26 12:24 | P.PN ---
Subjective Date of Service: 07/26/22 Chief Complaint: Hypercapnic Respiratory Failure No acute events since admission. She continues to report shortness of breath. She has removed her BiPAP mask and requested that she receive her "pain and anxiety" pills before being placed back on BiPAP. Per RN, she had just taken her home Valium prior to me entering the room. Review of Systems 10-point ROS is otherwise unremarkable Respiratory: Cough, Dry, Shortness of Breath, SOB with Excertion, Wheezing Physical Examination - Vital Signs Temperature: 98.2 F Blood Pressure: 149/62 Pulse: 107 Respirations: 16 Pulse Ox (%): 100 - Physical Exam General: Alert, In no apparent distress, Oriented x3 HEENT: Atraumatic, Mucous membr. moist/pink, Sclerae nonicteric Neck: JVD not distended Respiratory: Diminished, Expiratory wheezes, Inspiratory wheezes Cardiovascular: No edema, Regular rate/rhythm, Normal S1 S2, No gallops, No rubs, No murmurs Gastrointestinal: Normal bowel sounds, Soft and benign, Non-distended, No tenderness, No rebound, No guarding Musculoskeletal: No clubbing Integumentary: No rashes Neurological: Normal speech, Normal affect - Studies Laboratory Data (last 24 hrs) 07/25/22 19:58: PT 11.5, INR 1.05 07/25/22 19:58: WBC 5.30, Hgb 12.4, Hct 41.4, Plt Count 216 07/25/22 19:58: Sodium 139, Potassium 3.8, BUN 4 L, Creatinine 0.47 L, Glucose 136 H, Magnesium 1.8, Total Bilirubin 0.2, AST 23, ALT 26, Alkaline Phosphatase 93, Lipase 86 Assessment And Plan - Plan # Acute on Chronic Hypercapnic, Hypoxemic Respiratory Failure - likely secondary to Acute Chronic Obstructive Pulmonary Disease Exacerbation # Pulmonary Arterial Hypertension # History of Hepatitis C s/p treatment with Liver Cirrhosis This morning, she was on 3 L nasal cannula, and her SpO2 readings dropped to 87 %. - Evaluation thus far: - Chest x-ray = "no acute abnormalities displayed" - CT chest = "no acute findings within the chest. Enlarged main pulmonary artery is may reflect pulmonary artery hypertension. T5 compression fracture which is new since 04/14/2022 but favored subacute. Correlate clinically. Cirrhotic liver morphology. " - Initial ABG = pH 7.17, PCO2 148.0, PO2 75.1 - Management plan: - Consulted Pulmonary Medicine - recommendations appreciated - Acetazolamide, bronchodilators, and steroids per Pulm - Consulted Respiratory Therapy - Supplemental oxygen to maintain SpO2 > 92% - Encouraged incentive spirometry # Hypertension - Continue home amlodipine # Anxiety - Continue home gabapentin, PRN alprazolam - Caution with anxiolytics given hypercapnia # Subacute T5 Compression Fracture - Pain control Lakhwinder Ackerman M.D.
[2022-07-26] MEDS: Oxycodone HCl/Acetaminophen 1 TAB TAB PO PRN ×2 (12:39→19:06)
[2022-07-26] MEDS: acetaZOLAMIDE 250 MG TAB PO SCH ×2 (12:40→20:38)
[2022-07-26] MEDS: ALPRAZOLAM 0.25 MG TABLET PO PRN ×2 (12:40→19:06)
[2022-07-26] MEDS: NACHLORIDE 0.45% 1,000 ML IV SCH (12:41)
[2022-07-26] MEDS ORDERED: POTASSIUM CL SA 10 MEQ TAB PO ONE (13:00)
[2022-07-26] MEDS ORDERED: PNEUMOCOCCAL VACCINE 0.5 ML IMVAC ONE (14:00)
[2022-07-26] MEDS ORDERED: INFLUENZA VACCINE (for 6+ mo) 0.5 ML DOSE IMVAC ONE (14:00)
[2022-07-26] MEDS: GUAIFENESIN 600 MG SA TAB PO PRN (20:38)
[2022-07-26] MEDS: METHYLPREDNISOLONE 40 MG INJ IV SCH (20:39)
[2022-07-27] MEDS: NACHLORIDE 0.45% 1,000 ML IV SCH ×2 (00:56→13:34)
[2022-07-27 04:31] LABS: Absolute Lymphocytes (CBC) 0.5 K/uL (0.7-4.9); Hematocrit 39.4 % (36.0-45.0); Lymphocytes % 4.9 % (15.3-44.8); MCV 88.9 fL (80-100); MPV 8.7 fL (7.6-11.3); RBC Red Blood Cell Count 4.43 M/uL (3.86-4.86)
[2022-07-27] MEDS: ACETAMINOPHEN 325 MG TABLET PO PRN (04:38)
[2022-07-27 04:49] LABS: Potassium 5.1 mmol/L (3.5-5.1)
[2022-07-27] MEDS: acetaZOLAMIDE 250 MG TAB PO SCH ×2 (07:56→20:52)
[2022-07-27] MEDS: METHYLPREDNISOLONE 40 MG INJ IV SCH ×2 (07:56→20:52)
[2022-07-27] MEDS: ENOXAPARIN 40 MG/0.4 ML SQ SCH (07:57)
[2022-07-27] MEDS: Oxycodone HCl/Acetaminophen 1 TAB TAB PO PRN (08:24)
[2022-07-27] MEDS: ALPRAZOLAM 0.25 MG TABLET PO PRN (08:25)
[2022-07-27] MEDS: ALBUTEROL 2.5 MG/3 ML NEB SOL NEB PRN ×2 (09:30→20:30)
[2022-07-27] MEDS: IPRATROPIUM BROM 0.5MG/2.5ML NEB PRN ×2 (09:30→20:30)
[2022-07-27] MEDS ORDERED: MORPHINE 2 MG/ML SYR IV PRN (10:03)
[2022-07-27] MEDS ORDERED: DIAZEPAM 5 MG TABLET PO PRN (10:03)
--- NOTE | 2022-07-27 10:06 | P.PN ---
Subjective Date of Service: 07/27/22 Subjective: No new changes, No C/O voiced, Improving Review of Systems 10-point ROS is otherwise unremarkable Physical Examination - Vital Signs Temperature: 98.6 F Blood Pressure: 127/62 Pulse: 110 Respirations: 18 Pulse Ox (%): 97 - Physical Exam General: Alert, In no apparent distress HEENT: Atraumatic, PERRLA, EOMI Neck: Supple, JVD not distended Respiratory: Diminished, Expiratory wheezes Cardiovascular: Regular rate/rhythm, Normal S1 S2 Gastrointestinal: Normal bowel sounds, No tenderness Musculoskeletal: No tenderness Integumentary: No rashes Neurological: Normal speech, Normal tone, Normal affect Lymphatics: No axilla or inguinal lymphadenopathy - Studies Medications List Reviewed: Yes Assessment & Plan - Problems (Diagnosis) (1) Acute respiratory failure with hypercapnia Current Visit: Yes Status: Acute (2) COPD exacerbation Current Visit: Yes Status: Acute (3) Hypertension Current Visit: Yes Status: Chronic Qualifiers: Hypertension type: primary hypertension Qualified Code(s): I10 - Essential (primary) hypertension - Plan -nebs, steroids, and antibiotics -O2 per protocol. -Continue with BiPAP support at night -We will see if we can bring her machine to the hospital to reassess if this is functioning -repeat chest x-ray -pulmonary consultation -Out of bed and ambulate - Advance Directives Does patient have a Living Will: Yes Does patient have a Durable POA for Healthcare: No - Code Status/Comfort Care Code Status: Full Code Physician Review: Patient Assessed, Agree with Above Assessment and Plan Critical Care: No Time Spent Managing PTS Care (In Minutes): 35
[2022-07-27] MEDS: FAMOTIDINE 20 MG TAB PO SCH (11:33)
[2022-07-27] MEDS: GABAPENTIN 300 MG CAP PO SCH ×2 (13:34→20:52)
[2022-07-27] MEDS: HYDROCODONE/APAP 7.5/325 MG TAB PO PRN (20:52)
[2022-07-27] MEDS: GUAIFENESIN 600 MG SA TAB PO PRN (20:53)
[2022-07-27] MEDS: HOME MED 1 EA UNK (Budesonide/Formoterol Fumarate [Symbicort 160-4.5 Mcg Inhaler] 10.2 GM IH SCH (21:00)
[2022-07-28] MEDS: NACHLORIDE 0.45% 1,000 ML IV SCH ×2 (04:41→15:16)
[2022-07-28 05:28] LABS: Arterial Blood Carboxyhemoglob 1.5 % (0-1.5); Blood Gas Oxyhemoglobin 88.4 % (94-97); Blood O2 Saturation 90.9 % (92-98.5)
[2022-07-28 06:18] LABS: Absolute Lymphocytes (CBC) 0.5 K/uL (0.7-4.9); Hematocrit 36.1 % (36.0-45.0); Lymphocytes % 6.1 % (15.3-44.8); MCV 87.7 fL (80-100); MPV 8.5 fL (7.6-11.3); RBC Red Blood Cell Count 4.12 M/uL (3.86-4.86)
[2022-07-28 06:40] LABS: Albumin 3.2 g/dL (3.4-5.0); Bilirubin Total 0.4 mg/dL (0.2-1.0); Potassium 4.6 mmol/L (3.5-5.1)
[2022-07-28] MEDS: ENOXAPARIN 40 MG/0.4 ML SQ SCH (08:48)
[2022-07-28] MEDS: FAMOTIDINE 20 MG TAB PO SCH (08:49)
[2022-07-28] MEDS: PANTOPRAZOLE 40MG TABLET PO SCH (08:49)
[2022-07-28] MEDS: GABAPENTIN 300 MG CAP PO SCH ×3 (08:49→20:23)
[2022-07-28] MEDS: acetaZOLAMIDE 250 MG TAB PO SCH ×2 (08:49→20:23)
[2022-07-28] MEDS: AMLODIPINE 5 MG TAB PO SCH (08:50)
[2022-07-28] MEDS: METHYLPREDNISOLONE 40 MG INJ IV SCH ×2 (08:50→20:22)
[2022-07-28] MEDS: FLUTICASONE NAS SCH (08:50)
[2022-07-28] MEDS: HOME MED 1 EA UNK (Budesonide/Formoterol Fumarate [Symbicort 160-4.5 Mcg Inhaler] 10.2 GM IH SCH ×2 (08:50→20:25)
[2022-07-28] MEDS ORDERED: HOME MED 1 EA UNK (Famotidine [Pepcid] 40 MG Tablet) PO SCH (09:00)
--- NOTE | 2022-07-28 10:01 | RAD REPORT ---
EXAM DESCRIPTION: RAD - Chest Single View - 07/28/2022 6:02 am CLINICAL HISTORY: pneumonia Chest pain. COMPARISON: Chest Single View dated 07/25/2022; Chest Single View dated 07/17/2022; Chest Single Vie w dated 06/30/2022; Chest Single View dated 04/14/2022; Thorax Wo Con dated 07/26/2022 FINDINGS: Portable technique limits examination quality. Right lung base infiltrate is again seen, mildly improved since comparative study. Mild diffuse emphy sema. The heart is mildly enlarged in size. No displaced fractures. IMPRESSION: Mild improvement in right lung base infiltrate since comparative study.
[2022-07-28] MEDS: HYDROCODONE/APAP 7.5/325 MG TAB PO PRN ×2 (10:37→20:32)
--- NOTE | 2022-07-28 12:55 | EKG ---
Test Date: 2022-07-25 Test Time: 19:33:24 Stucco Laborer: LOLLY MEASUREMENT RESULTS: Intervals: Rate: 101 WA: 174 QRSD: 90 QT: 308 QTc: 399 [place]: P: 78 WA: 174 QRS: 72 T: 51 INTERPRETIVE STATEMENTS: Sinus tachycardia Biatrial enlargement Left ventricular hypertrophy Nonspecific ST abnormality Abnormal ECG Compared to ECG 07/25/2022 19:32:45 ST (T wave) deviation now present Sinus rhythm no longer present Electronically Signed On 07-28-22 12:50:57 DIVISIONAL STOREKEEPER by Wilmer Mar
--- NOTE | 2022-07-28 12:55 | EKG ---
Test Date: 2022-07-25 Test Time: 19:32:45 Blood Bank Manager: LOLLY MEASUREMENT RESULTS: Intervals: Rate: 99 CT: 182 QRSD: 84 QT: 306 QTc: 392 [place]: P: 80 CT: 182 QRS: 72 T: 53 INTERPRETIVE STATEMENTS: Normal sinus rhythm Biatrial enlargement Left ventricular hypertrophy Abnormal ECG Compared to ECG 07/17/2022 19:51:11 Left ventricular hypertrophy now present Sinus tachycardia no longer present Myocardial infarct finding no longer present Electronically Signed On 07-28-22 12:51:00 SYNCHRONIZER by Wilmer Mar
[2022-07-28] MEDS: DIAZEPAM 5 MG TABLET PO PRN ×2 (15:16→20:21)
[2022-07-29] MEDS: NACHLORIDE 0.45% 1,000 ML IV SCH (04:40)
--- NOTE | 2022-07-29 07:12 | P.PN ---
Date of Service: 07/28/22 Subjective Patient continues to improve. Symptoms are better. Working with physical therapy today and she has done really well. We are going to examine her BiPAP machine today as well. We will have her use it overnight and see how she does Review of Systems 10-point ROS is otherwise unremarkable Physical Examination - Vital Signs Reviewed - Physical Exam General: Alert, In no apparent distress Respiratory: Diminished, Expiratory wheezes Cardiovascular: Regular rate/rhythm, Normal S1 S2 Gastrointestinal: Normal bowel sounds, No tenderness Neurological: Normal speech, Normal tone, Normal affect Assessment & Plan - Problems (Diagnosis) (1) Acute respiratory failure with hypercapnia Current Visit: Yes Status: Acute (2) COPD exacerbation Current Visit: Yes Status: Acute (3) Hypertension Current Visit: Yes Status: Chronic Qualifiers: Hypertension type: primary hypertension Qualified Code(s): I10 - Essential (primary) hypertension - Plan Continue with plan of care as mentioned below: -nebs, steroids, and antibiotics -O2 per protocol. -Continue with BiPAP support at night-She brought her own machine and we can see if it works -repeat chest x-ray -pulmonary consultation appreciated -Out of bed and ambulate; Continue working with physical therapy - Advance Directives Does patient have a Living Will: Yes Does patient have a Durable POA for Healthcare: No - Code Status/Comfort Care Code Status: Full Code Physician Review: Patient Assessed, Agree with Above Assessment and Plan Critical Care: No Time Spent Managing PTS Care (In Minutes): 35
--- NOTE | 2022-07-29 07:12 | P.PN ---
Date of Service: 07/29/22 Subjective Patient states she is feeling really weak and she is wanting to go to inpatient rehab. Review of Systems 10-point ROS is otherwise unremarkable Physical Examination - Vital Signs Reviewed - Physical Exam General: Alert, In no apparent distress Respiratory: Diminished, Expiratory wheezes Cardiovascular: Regular rate/rhythm, Normal S1 S2 Gastrointestinal: Normal bowel sounds, No tenderness Neurological: Normal speech, Normal tone, Normal affect Assessment & Plan - Problems (Diagnosis) (1) Acute respiratory failure with hypercapnia Current Visit: Yes Status: Acute (2) COPD exacerbation Current Visit: Yes Status: Acute (3) Hypertension Current Visit: Yes Status: Chronic Qualifiers: Hypertension type: primary hypertension Qualified Code(s): I10 - Essential (primary) hypertension - Plan Continue with plan of care as mentioned below: -nebs, steroids, and antibiotics -O2 per protocol. -We will continue to see if patient's BiPAP is functioning. Patient will bring it from home. -repeat chest x-ray as needed -pulmonary consultation appreciated -Out of bed and ambulate; Continue working with physical therapy
[2022-07-29] MEDS: METHYLPREDNISOLONE 40 MG INJ IV SCH ×2 (08:00→20:08)
[2022-07-29] MEDS: AMLODIPINE 5 MG TAB PO SCH (08:01)
[2022-07-29] MEDS: FAMOTIDINE 20 MG TAB PO SCH (08:01)
[2022-07-29] MEDS: DIAZEPAM 5 MG TABLET PO PRN ×2 (08:02→20:06)
[2022-07-29] MEDS: GABAPENTIN 300 MG CAP PO SCH ×3 (08:02→20:08)
[2022-07-29] MEDS: HYDROCODONE/APAP 7.5/325 MG TAB PO PRN ×2 (08:03→20:07)
[2022-07-29] MEDS: PANTOPRAZOLE 40MG TABLET PO SCH (08:03)
[2022-07-29] MEDS: acetaZOLAMIDE 250 MG TAB PO SCH ×2 (08:03→20:06)
[2022-07-29] MEDS: ENOXAPARIN 40 MG/0.4 ML SQ SCH (08:03)
[2022-07-29] MEDS: HOME MED 1 EA UNK (Budesonide/Formoterol Fumarate [Symbicort 160-4.5 Mcg Inhaler] 10.2 GM IH SCH ×2 (09:00→20:08)
[2022-07-29] MEDS: FLUTICASONE NAS SCH (09:00)
[2022-07-29] MEDS: ONDANSETRON 4 MG/2 ML VIAL IV PRN (23:31)
[2022-07-30 06:29] LABS: Absolute Lymphocytes (CBC) 0.5 K/uL (0.7-4.9); Hematocrit 36.1 % (36.0-45.0); Lymphocytes % 5.4 % (15.3-44.8); MCV 86.8 fL (80-100); MPV 8.7 fL (7.6-11.3); RBC Red Blood Cell Count 4.16 M/uL (3.86-4.86)
[2022-07-30 06:37] LABS: Albumin 3.3 g/dL (3.4-5.0); Bilirubin Total 0.3 mg/dL (0.2-1.0); Potassium 4.2 mmol/L (3.5-5.1)
--- NOTE | 2022-07-30 08:06 | RAD REPORT ---
EXAM DESCRIPTION: Roby Single View07/30/2022 5:32 am CLINICAL HISTORY: cough COMPARISON: July 28, 2022 FINDINGS: The lungs are hyperaerated. The lungs appear clear of acute infiltrate. The heart is mildly enlarged IMPRESSION: No acute abnormalities displayed
[2022-07-30] MEDS: METHYLPREDNISOLONE 40 MG INJ IV SCH ×2 (08:51→20:29)
[2022-07-30] MEDS: FAMOTIDINE 20 MG TAB PO SCH (08:52)
[2022-07-30] MEDS: ENOXAPARIN 40 MG/0.4 ML SQ SCH (08:52)
[2022-07-30] MEDS: HYDROCODONE/APAP 7.5/325 MG TAB PO PRN ×2 (08:52→20:27)
[2022-07-30] MEDS: acetaZOLAMIDE 250 MG TAB PO SCH ×2 (08:53→20:29)
[2022-07-30] MEDS: AMLODIPINE 5 MG TAB PO SCH (08:53)
[2022-07-30] MEDS: DIAZEPAM 5 MG TABLET PO PRN ×2 (08:54→20:40)
[2022-07-30] MEDS: FLUTICASONE NAS SCH (08:56)
[2022-07-30] MEDS: HOME MED 1 EA UNK (Budesonide/Formoterol Fumarate [Symbicort 160-4.5 Mcg Inhaler] 10.2 GM IH SCH ×2 (08:56→20:28)
[2022-07-30] MEDS: GABAPENTIN 300 MG CAP PO SCH ×3 (08:57→20:29)
[2022-07-30] MEDS: PANTOPRAZOLE 40MG TABLET PO SCH (08:57)
[2022-07-30] MEDS: ONDANSETRON 4 MG/2 ML VIAL IV PRN (11:11)
[2022-07-30] MEDS: IPRATROPIUM BROM 0.5MG/2.5ML NEB PRN (22:40)
[2022-07-30] MEDS: ALBUTEROL 2.5 MG/3 ML NEB SOL NEB PRN (22:40)
[2022-07-31] MEDS: ACETAMINOPHEN 325 MG TABLET PO PRN (01:19)
[2022-07-31] MEDS: HYDROCODONE/APAP 7.5/325 MG TAB PO PRN (07:57)
[2022-07-31] MEDS: METHYLPREDNISOLONE 40 MG INJ IV SCH (07:58)
[2022-07-31] MEDS: PANTOPRAZOLE 40MG TABLET PO SCH (07:59)
[2022-07-31] MEDS: AMLODIPINE 5 MG TAB PO SCH (07:59)
[2022-07-31] MEDS: HOME MED 1 EA UNK (Budesonide/Formoterol Fumarate [Symbicort 160-4.5 Mcg Inhaler] 10.2 GM IH SCH ×2 (08:00→20:03)
[2022-07-31] MEDS: ENOXAPARIN 40 MG/0.4 ML SQ SCH (08:00)
[2022-07-31] MEDS: acetaZOLAMIDE 250 MG TAB PO SCH ×2 (08:00→20:03)
[2022-07-31] MEDS: FAMOTIDINE 20 MG TAB PO SCH (08:00)
[2022-07-31] MEDS: FLUTICASONE NAS SCH (08:01)
[2022-07-31] MEDS: GABAPENTIN 300 MG CAP PO SCH ×3 (08:01→20:03)
[2022-07-31] MEDS ORDERED: MORPHINE 4 MG/ML SYR IV ONE (14:00)
[2022-07-31] MEDS: DIAZEPAM 5 MG TABLET PO PRN (18:31)
[2022-07-31] MEDS: predniSONE 20 MG TAB PO SCH (20:03)
[2022-08-01] MEDS: FAMOTIDINE 20 MG TAB PO SCH (08:59)
[2022-08-01] MEDS: predniSONE 20 MG TAB PO SCH (08:59)
[2022-08-01] MEDS: GABAPENTIN 300 MG CAP PO SCH ×3 (08:59→21:00)
[2022-08-01] MEDS: ENOXAPARIN 40 MG/0.4 ML SQ SCH (08:59)
[2022-08-01] MEDS: PANTOPRAZOLE 40MG TABLET PO SCH (08:59)
[2022-08-01] MEDS: acetaZOLAMIDE 250 MG TAB PO SCH ×2 (08:59→22:01)
[2022-08-01] MEDS: HOME MED 1 EA UNK (Budesonide/Formoterol Fumarate [Symbicort 160-4.5 Mcg Inhaler] 10.2 GM IH SCH ×2 (09:00→21:00)
[2022-08-01] MEDS: AMLODIPINE 5 MG TAB PO SCH (09:00)
[2022-08-01] MEDS: FLUTICASONE NAS SCH (09:00)
[2022-08-01] MEDS: HYDROCODONE/APAP 7.5/325 MG TAB PO PRN ×2 (09:08→17:08)
[2022-08-01] MEDS: ONDANSETRON 4 MG/2 ML VIAL IV PRN (10:46)
--- NOTE | 2022-08-01 15:00 | P.PN ---
Subjective Date of Service: 08/01/22 Chief Complaint: Hypercapnic Respiratory Failure Subjective: Improving (Patient is doing well has problems with noninvasive ventilator otherwise no change) Review of Systems General: Weakness Respiratory: Shortness of Breath Physical Examination - Vital Signs Temperature: 97.6 F Blood Pressure: 106/75 Pulse: 108 Respirations: 16 Pulse Ox (%): 98 - Physical Exam General: Alert, Oriented x3 Respiratory: Clear to auscultation bilaterally, Diminished - Studies Medications List Reviewed: Yes Assessment And Plan - Current Problems (Diagnosis) (1) Acute and chronic respiratory failure ([id number]) Current Visit: No Status: Acute Plan: Patient has chronic hypoxic hypercapnic respiratory failure saturations satisfactory I discussed with respiratory his oxygen needs to be connected to the NIV needs a separate oxygen regulator so that she can use it with a nasal cannula patient has been advised to restrict use of benzodiazepines and narcotics that could suppress her respiratory drive and precipitate hypercapnia also believe that she is noncompliant with her NIV at home carbonate is now down to acceptable levels patient stable for discharge operative I have advised her to use her NIV much as possible Qualifiers: Respiratory failure complication: hypoxia and hypercapnia Physician Review: Patient Assessed, Agree with Above Assessment and Plan
--- NOTE | 2022-08-01 16:09 | P.PN ---
Date of Service: 07/30/22 Subjective Patient unsure as if [facility]. She contemplated leaving AMA. However, clinically she is stable and I will plan to discharge her if she is feeling like she is ready to go home. Continue with current medication Review of Systems 10-point ROS is otherwise unremarkable Physical Examination - Vital Signs Reviewed - Physical Exam General: Alert, In no apparent distress Respiratory: Diminished, Expiratory wheezes Cardiovascular: Regular rate/rhythm, Normal S1 S2 Gastrointestinal: Normal bowel sounds, No tenderness Neurological: Normal speech, Normal tone, Normal affect Assessment & Plan - Problems (Diagnosis) (1) Acute respiratory failure with hypercapnia Current Visit: Yes Status: Acute (2) COPD exacerbation Current Visit: Yes Status: Acute (3) Hypertension Current Visit: Yes Status: Chronic Qualifiers: Hypertension type: primary hypertension Qualified Code(s): I10 - Essential (primary) hypertension - Plan Continue with plan of care as mentioned below: -nebs, steroids, and antibiotics -O2 per protocol. -Patient's BiPAP is functioning well. Continue using at night. -repeat chest x-ray as needed -pulmonary consultation appreciated -Out of bed and ambulate; Continue working with physical therapy -Pulmonary physical therapy as needed.
--- NOTE | 2022-08-01 16:11 | P.PN ---
Date of Service: 07/31/22 Subjective Patient has decided that she needs to go to a [facility]. We will continue with neb treatments and we will arrange for BiPAP. Review of Systems 10-point ROS is otherwise unremarkable Physical Examination - Vital Signs Reviewed - Physical Exam General: Alert, In no apparent distress Respiratory: Upper Airway noise but otherwise clear Cardiovascular: Regular rate/rhythm, Normal S1 S2 Gastrointestinal: Normal bowel sounds, No tenderness Neurological: Normal speech, Normal tone, Normal affect Assessment & Plan - Problems (Diagnosis) (1) Acute respiratory failure with hypercapnia Current Visit: Yes Status: Acute (2) COPD exacerbation Current Visit: Yes Status: Acute (3) Hypertension Current Visit: Yes Status: Chronic Qualifiers: Hypertension type: primary hypertension Qualified Code(s): I10 - Essential (primary) hypertension - Plan Continue with plan of care as mentioned below: -nebs, steroids, and antibiotics -O2 per protocol. -Patient's BiPAP is functioning well. Continue using at night. -repeat chest x-ray as needed -pulmonary consultation appreciated -Out of bed and ambulate; Continue working with physical therapy -Pulmonary physical therapy as needed. -Waiting for placement at [facility]
--- NOTE | 2022-08-01 16:12 | P.PN ---
Date of Service: 08/01/22 Subjective Patient denies any new complaints. Clinical symptoms continue to improve. [facility] We will continue with neb treatments and we will continue with BiPAP while resting. Review of Systems 10-point ROS is otherwise unremarkable Physical Examination - Vital Signs Reviewed - Physical Exam General: Alert, In no apparent distress Respiratory: Upper Airway noise but otherwise clear Cardiovascular: Regular rate/rhythm, Normal S1 S2 Gastrointestinal: Normal bowel sounds, No tenderness Neurological: Normal speech, Normal tone, Normal affect Assessment & Plan - Problems (Diagnosis) (1) Acute respiratory failure with hypercapnia Current Visit: Yes Status: Acute (2) COPD exacerbation Current Visit: Yes Status: Acute (3) Hypertension Current Visit: Yes Status: Chronic Qualifiers: Hypertension type: primary hypertension Qualified Code(s): I10 - Essential (primary) hypertension - Plan Continue with plan of care as mentioned below: -nebs, steroids, and antibiotics -O2 per protocol. -Patient's BiPAP is functioning well. Continue using at night. -repeat chest x-ray as needed -pulmonary consultation appreciated -Out of bed and ambulate; Continue working with physical therapy -Pulmonary physical therapy as needed. -Waiting for placement at [facility]
[2022-08-01] MEDS: predniSONE 10 MG TAB PO SCH (17:03)
[2022-08-01] MEDS: DIAZEPAM 5 MG TABLET PO PRN (18:27)
[2022-08-02] MEDS: predniSONE 10 MG TAB PO SCH ×2 (08:42→22:30)
[2022-08-02] MEDS: PANTOPRAZOLE 40MG TABLET PO SCH (08:42)
[2022-08-02] MEDS: ENOXAPARIN 40 MG/0.4 ML SQ SCH (08:42)
[2022-08-02] MEDS: GABAPENTIN 300 MG CAP PO SCH ×3 (08:42→21:00)
[2022-08-02] MEDS: acetaZOLAMIDE 250 MG TAB PO SCH ×2 (08:42→22:30)
[2022-08-02] MEDS: FAMOTIDINE 20 MG TAB PO SCH (08:42)
[2022-08-02] MEDS: AMLODIPINE 5 MG TAB PO SCH (08:55)
[2022-08-02] MEDS: HYDROCODONE/APAP 7.5/325 MG TAB PO PRN ×2 (08:59→22:30)
[2022-08-02] MEDS: FLUTICASONE NAS SCH (09:00)
[2022-08-02] MEDS: HOME MED 1 EA UNK (Budesonide/Formoterol Fumarate [Symbicort 160-4.5 Mcg Inhaler] 10.2 GM IH SCH ×2 (09:00→21:00)
[2022-08-02] MEDS: GUAIFENESIN 600 MG SA TAB PO PRN (22:31)
[2022-08-03] MEDS: FLUTICASONE NAS SCH (09:00)
[2022-08-03] MEDS: AMLODIPINE 5 MG TAB PO SCH (09:00)
[2022-08-03] MEDS: HOME MED 1 EA UNK (Budesonide/Formoterol Fumarate [Symbicort 160-4.5 Mcg Inhaler] 10.2 GM IH SCH ×2 (09:00→21:00)
[2022-08-03] MEDS: predniSONE 10 MG TAB PO SCH ×2 (09:00→22:07)
[2022-08-03] MEDS: GABAPENTIN 300 MG CAP PO SCH ×3 (09:00→22:06)
[2022-08-03] MEDS: ENOXAPARIN 40 MG/0.4 ML SQ SCH (10:02)
[2022-08-03] MEDS: acetaZOLAMIDE 250 MG TAB PO SCH ×2 (10:02→22:06)
[2022-08-03] MEDS: FAMOTIDINE 20 MG TAB PO SCH (10:02)
[2022-08-03] MEDS: PANTOPRAZOLE 40MG TABLET PO SCH (10:02)
[2022-08-03] MEDS: HYDROCODONE/APAP 7.5/325 MG TAB PO PRN ×2 (11:54→22:06)
[2022-08-03] MEDS: ACETAMINOPHEN 325 MG TABLET PO PRN (15:53)
[2022-08-03] MEDS: DIAZEPAM 5 MG TABLET PO PRN (15:53)
[2022-08-04] MEDS: ONDANSETRON 4 MG (ODT) TAB PO PRN ×2 (01:39→14:33)
[2022-08-04 07:08] LABS: Magnesium 1.8 mg/dL (1.8-2.4); Phosphorus 4.1 mg/dL (2.5-4.9); Potassium 4.5 mmol/L (3.5-5.1)
[2022-08-04] MEDS: FLUTICASONE NAS SCH (09:00)
[2022-08-04] MEDS: GABAPENTIN 300 MG CAP PO SCH ×2 (09:00→13:41)
[2022-08-04] MEDS: HOME MED 1 EA UNK (Budesonide/Formoterol Fumarate [Symbicort 160-4.5 Mcg Inhaler] 10.2 GM IH SCH (09:00)
[2022-08-04] MEDS: HYDROCODONE/APAP 7.5/325 MG TAB PO PRN ×2 (09:38→17:46)
[2022-08-04] MEDS: ENOXAPARIN 40 MG/0.4 ML SQ SCH (09:38)
[2022-08-04] MEDS: AMLODIPINE 5 MG TAB PO SCH (09:39)
[2022-08-04] MEDS: PANTOPRAZOLE 40MG TABLET PO SCH (09:39)
[2022-08-04] MEDS: acetaZOLAMIDE 250 MG TAB PO SCH (09:39)
[2022-08-04] MEDS: predniSONE 10 MG TAB PO SCH (09:39)
[2022-08-04] MEDS: FAMOTIDINE 20 MG TAB PO SCH (09:39)
[2022-08-04 12:49] VITALS: TEMP 97.6
[2022-08-04 13:10] VITALS: O2SAT 91
--- NOTE | 2022-08-04 13:12 | P.PN ---
Date of Service: 08/02/22 Subjective Pt denies any new complaints; symptoms stable; awaiting transfer Review of Systems 10-point ROS is otherwise unremarkable Physical Examination - Vital Signs Reviewed - Physical Exam General: Alert, In no apparent distress Respiratory: Upper Airway noise but otherwise clear Cardiovascular: Regular rate/rhythm, Normal S1 S2 Gastrointestinal: Normal bowel sounds, No tenderness Neurological: Normal speech, Normal tone, Normal affect Assessment & Plan - Problems (Diagnosis) (1) Acute respiratory failure with hypercapnia Current Visit: Yes Status: Acute (2) COPD exacerbation Current Visit: Yes Status: Acute (3) Hypertension Current Visit: Yes Status: Chronic Qualifiers: Hypertension type: primary hypertension Qualified Code(s): I10 - Essential (primary) hypertension - Plan Continue with plan of care as mentioned below: -nebs, steroids, and antibiotics -O2 per protocol. -Patient's BiPAP is functioning well. Continue using at night. -pulmonary consultation appreciated -Out of bed and ambulate; Continue working with physical therapy -Waiting for placement at [facility]
--- NOTE | 2022-08-04 13:13 | P.PN ---
Date of Service: 08/03/22 Subjective Awaiting placement Review of Systems 10-point ROS is otherwise unremarkable Physical Examination - Vital Signs Reviewed - Physical Exam General: Alert, In no apparent distress Respiratory: Upper Airway noise but otherwise clear Cardiovascular: Regular rate/rhythm, Normal S1 S2 Gastrointestinal: Normal bowel sounds, No tenderness Neurological: Normal speech, Normal tone, Normal affect Assessment & Plan - Problems (Diagnosis) (1) Acute respiratory failure with hypercapnia Current Visit: Yes Status: Acute (2) COPD exacerbation Current Visit: Yes Status: Acute (3) Hypertension Current Visit: Yes Status: Chronic Qualifiers: Hypertension type: primary hypertension Qualified Code(s): I10 - Essential (primary) hypertension - Plan Continue with plan of care as mentioned below: -nebs, steroids, and antibiotics -O2 per protocol. -Patient's BiPAP is functioning well. Continue using at night. -Continue working with physical therapy -Waiting for placement at [facility]
--- NOTE | 2022-08-04 13:15 | P.DS ---
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 She was initially tachycardic and tachypneic saturating 99% on 3L NC (her baseline). EKG with nonspecific ST abnormality. Troponin within normal limits. Chest x-ray without acute abnormalities. Covid/flu negative. ABG with pH of 7.2, PCO2 148. Bicarb 51.6. She was immediately placed on BiPAP and given morphine, Zofran, magnesium, and ketorolac. About an hour after, repeat ABG was done which showed a pH of 7.2, PCO2 134, PO2 of 63.8, bicarb 51.4. CT chest angio to rule out PE could not be completed due to lack of IV access and patient refused any more attempts. Patient is admitted for further management. Hospital Course: Patient's respiratory status has been stabilized. Patient has been using her BiPAP here at the hospital. She is clinically doing well but she is weak and she could use some therapy to improve her pulmonary status. She will get transferred to alf facility at [facility]. She will need close outpatient follow-up with pulmonary. She has medically been doing well but she is upset about the way that the nursing staff has treated her at the hospital. Otherwise she is doing well and stable for discharge with outpatient follow-up. Vital Signs/Physical Exam: Temp Pulse Resp BP Pulse Ox 97.6 F 117 H 17 128/74 91 08/04/22 12:00 08/04/22 12:00 08/04/22 12:00 08/04/22 12:00 08/04/22 12:00 General: Alert, In no apparent distress, Oriented x3 Laboratory Data at Discharge: WBC 9.30 K/uL (4.3-10.9) 07/30/22 06:04 Hgb 11.4 g/dL (12.0-15.0) L 07/30/22 06:04 Hct 36.1 % (36.0-45.0) 07/30/22 06:04 Plt Count 283 K/uL (152-406) 07/30/22 06:04 PT 11.5 SECONDS (9.5-12.5) 07/25/22 19:58 INR 1.05 07/25/22 19:58 Sodium 135 mmol/L (136-145) L 07/30/22 06:04 Potassium 4.5 mmol/L (3.5-5.1) 08/04/22 05:39 BUN 13 mg/dL (7-18) 07/30/22 06:04 Creatinine 0.50 mg/dL (0.55-1.3) L 07/30/22 06:04 Glucose 155 mg/dL (74-106) H 07/30/22 06:04 Phosphorus 4.1 mg/dL (2.5-4.9) 08/04/22 05:39 Magnesium 1.8 mg/dL (1.8-2.4) 08/04/22 05:39 Total Bilirubin 0.3 mg/dL (0.2-1.0) 07/30/22 06:04 AST 12 U/L (15-37) L 07/30/22 06:04 ALT 26 U/L (12-78) 07/30/22 06:04 Alkaline Phosphatase 80 U/L (45-117) 07/30/22 06:04 Triglycerides 141 mg/dL (<150) 07/26/22 06:41 Cholesterol 182 mg/dL (<200) 07/26/22 06:41 HDL Cholesterol 69 mg/dL (40-60) H 07/26/22 06:41 Cholesterol/HDL Ratio 2.64 07/26/22 06:41 Lipase 86 U/L (73-393) 07/25/22 19:58 Home Medications: Amlodipine [Norvasc*] 1 tab PO DAILY 07/26/22 Budesonide/Formoterol Fumarate [Symbicort 160-4.5 Mcg Inhaler] 2 puff IH BID 07/26/22 Famotidine [Pepcid] 1 tab PO DAILY 07/26/22 Fluticasone [Flonase 50MCG Nasal [place]*] 1 spray MELANIA DAILY 07/26/22 Gabapentin 1 cap PO TID 07/26/22 Pantoprazole Sodium [Protonix] 1 tab PO DAILY 07/26/22 Arformoterol Tartrate [Brovana] 15 mcg NEB BIDRESP #60 vial.neb 07/29/22 Hydrocodone 7.5/APAP 325 [[place] 7.5/325 mg*] 1 tab PO Q6H PRN #30 tab 07/29/22 Ipratropium Neb [Atrovent*] 0.5 mg IH [id number] #60 vial 07/29/22 Levalbuterol HCl [Xopenex] 1.25 mg IH Q8HP PRN #60 vial 07/29/22 acetaZOLAMIDE [Diamox*] 250 mg PO BID #60 tab 07/29/22 predniSONE [Deltasone] 20 mg PO BID #11 tab 07/29/22 New Medications: Ipratropium Neb [Atrovent*] 0.5 mg IH [id number] #60 vial Arformoterol Tartrate [Brovana] 15 mcg NEB BIDRESP #60 vial.neb acetaZOLAMIDE [Diamox*] 250 mg PO BID #60 tab Hydrocodone 7.5/APAP 325 [[place] 7.5/325 mg*] 1 tab PO Q6H PRN #30 tab PRN Reason: Pain Scale 5-7 (Moderate) predniSONE [Deltasone] 20 mg PO BID #11 tab Levalbuterol HCl [Xopenex] 1.25 mg IH Q8HP PRN #60 vial PRN Reason: Shortness Of Breath Physician Discharge Instructions: OK TO DC IV AND DC TO [facility]; SUREKHA LARA FOLLOW-UP WITH PRIMARY CARE PROVIDER IN 1-2 WEEKS FOLLOW-UP WITH Pulmonary IN 1-2 WEEKS RETURN TO THE ER IF symptoms worsens CALL DR. MORENO AT [phone] IF ANY QUESTIONS REGARDING HOSPITAL STAY. PLEASE CALL THE FLOOR AT [phone] IF ANY MEDICATION OR NURSING QUESTIONS. Diet: AHA Activity: Fall precautions Followup: Unknown,U [Primary Care Provider] - Time spent managing pt's care (in minutes): 35
[2022-08-04 16:02] VITALS: BP 129/76
== END 2022-08-04 18:23 | DRG 189 ==
LOC: ER 18:48 → ERHOLD 23:22 → 2ND 07-26 01:08
PROVIDERS: ADMIT Internal Medicine; ATTEND Hospitalist
PROC: 5A09457 Assistance with Respiratory Ventilation, 24-96 Consecutive Hours, Continuous Positive Airway Pressure (ICD-10-PCS; principal; 2022-07-26)
DX: J96.22 Acute and chronic respiratory failure with hypercapnia (principal); J44.1 Chronic obstructive pulmonary disease with (acute) exacerbation; E87.20 Acidosis, unspecified; J96.21 Acute and chronic respiratory failure with hypoxia; K21.9 Gastro-esophageal reflux disease without esophagitis; I10 Essential (primary) hypertension; F41.9 Anxiety disorder, unspecified; I27.21 Secondary pulmonary arterial hypertension; M48.54XD Collapsed vertebra, not elsewhere classified, thoracic region, subsequent encounter for fracture with routine healing; Z60.2 Problems related to living alone; Z88.8 Allergy status to other drugs, medicaments and biological substances; Z99.81 Dependence on supplemental oxygen; Z79.52 Long term (current) use of systemic steroids; Z90.49 Acquired absence of other specified parts of digestive tract; Z79.899 Other long term (current) drug therapy; Z20.822 Contact with and (suspected) exposure to COVID-19
CPT/HCPCS: 0240U; 36415; 71045; 71250; 80048; 80053; 80061; 80076; 81001; 82805; 83690; 83735; 83880; 84100; 84132; 84443; 84484; 85025; 85610; 93005; 94010; 94660; 94760; 96374; 96375; 97110; 97116; 97161; 97530; 99285; J1120; J1650; J2270; J2405; J2920; J3475; J7512; J7613; J7644; Q0162; U0003

== ENCOUNTER 2022-08-22 11:59 | Inpatient (IN) | payer OTHER ==
--- OUTSIDE RECORDS SUMMARY | 2022-08-22 12:06 | XMS REPORT | Continuity of Care Document ---
:1955 Author Organization [facility] t Address [address] [place] [address] Care Team Providers Name Role Phone Reshma Galan MD, Guille Gay Primary Care Physician [phone] Chantel Guido Attending Clinician Unavailable Doctor Unassigned, [place] Attending Clinician Unavailable DAMIAN BILLY Attending Clinician Unavailable Wenceslao HYLTON, Damian Gay Attending Clinician Fabienne GONZALEZ, Harry Simmons Attending [...] Policy Number Effective Date Expiration Date S [facility] INPATIENT PART B [id number] 2020 ONLY MEDICARE 00:00:00 [place] [id number] [facility] Problems Condition Condition Condition Status Onset Resolution Last Treating Co mments Source Name Details Category Date Date Treatment Clinician Date Hypercapni Hypercapni Disease Active U nivers c c 8- ity [place] respirator [place] failure y failure [facility] Branch COPD COPD Disease Active Univers exacerbati exacerbati 5- it y of on on 00:00: [place] 00 [facility] Branch Symptomati Symptomati Disease Active U nivers c c 7-11 ity of menopausal menopausal [place] or female or female 00 [facility] climacteri climacteri Br anch c states c states Essential Essential Disease Active Uni vers hypertensi hypertensi 6-05 it y of on, benign on, benign [place] [facility] Spinal Spinal Disease Active Univers stenosis, stenosis, 02-02 ity of unspecifie unspecifie [place] region d region 00 Medica l other than other than Br anch cervical cervical Spinal Spinal Disease Active Univers stenosis, stenosis, 02-02 ity of unspecifie unspecifie [place] 00 Medica l other than other than Br anch cervical cervical [id number] History of Problem Active Co mmon colon Spirit polyps - [facility] [id number] Anxiety Problem Active Common Spirit [facility] [id number] Essential Problem Active Comm on hypertensi Spirit on [facility] [id number] Chronic Problem Active Commo n GERD Spirit [facility] [id number] Umbilical Problem Active Commo n hernia Spirit without - [facility] [id number] History of Problem Active C ommon 9101 hepatitis Spirit C [facility] [id number] Chronic Problem Active Common obstructiv Spirit e - [facility] pulmonary [facility] disease, kes unspecifie Medica l d COPD Center type [id number] Spinal Problem Active Common stenosis Spirit of lumbar - [facility] neurogenic Medica l claudicati Center on [id number] Other Problem Active Common chronic Spirit pain [facility] Allergies, Adverse Reactions, Alerts Allergy Allergy Status Severity Reaction(s) Onset Inactive Treating Comm ents Source Name Type Date Date Clinician Magnesiu Propensi Active Anaphylaxis Liquid C HI St m ty to 12-27 [facility] adverse 00:00: Medical reaction 00 [place] s Butorpha Propensi Active Anaphylaxis C HI [...] ity of Tartrate adverse 00:00: [place] reaction [facility] Branch BUTORPHA DRUG Active High Unknown-Cmnt 2006-0 Un nathen NOL INGREDI 6-05 ity of TARTRATE 00:00: [place] 00 Medical Branch Social History Social Habit Start Date Stop Date Quantity Comments Source History of Tobacco Former Smoker Com mon Spirit - Use [facility] History SDOH [facility] Alcohol Comment Medical C enter History SDOH [facility] Alcohol Std Drinks Medica l Center History SDOH [facility] Alcohol Binge Medical L[address] ter Exposure to 2022-05-11 2022-05-21 Not sure University SARS-CoV-2 (event) 00:00:00 13:54:00 [facility] [place] History [facility] Food 2022-05-07 2022-05-07 1 Univers ity of Worry 00:00:00 00:00:00 [facility] [place] History [facility] Food 2022-05-07 2022-05-07 1 Univers ity of Scarcity 00:00:00 00:00:00 [facility] [place] History [facility] 2022-05-07 2022-05-07 2 University o f Transport Med 00:00:00 00:00:00 [facility] al Branch History [facility] 2022-05-07 2022-05-07 2 University o f Transport Non-Med 00:00:00 00:00:00 [facility] Alcohol intake 2018-12-28 2018-12-[address] [facility] 00:00:00 00:00:00 non-drinker of Medical Ce nter alcohol (finding) Tobacco Comment 2018-12-27 2018-12-27 quit [facility]rs [facility] 00:[facility]00 [facility] Tobacco use and 2018-12-27 2018-12-[address] [facility] kes exposure 00:00:00 00:00:00 Medical Center History WAOH 2018-12-27 2018-12-[address] [facility] Alcohol Frequency 00:00:00 00:00:[address] [facility] Cigarettes smoked 2015-12-30 2015-12-30 Univers ity of current (pack per 00:00:00 00:00:00 [facility] ) - Reported Branch Cigarette 2015-12-30 2015-12-30 University of pack-years 00:00:00 00:00:00 [facility] [place] Sex Assigned At [birth year] [facility] 00:00:00 00:00:00 Medical Center Smoking Status Start Date Stop Date Source Former Smoker 2018-10-29 00:00:00 2018-10-29 00:00:00 Common S pirit - [facility] Medications Ordered Filled Start Stop Current Ordering Indication Dosage Frequency Signature Comments Components Source Medication Medication Date Date Medication? Clinician (SIG) Name Name diazePAM Yes [id number] 5mg Take 1 Uni vers (VALIUM) 5 9-21 tablet by ity of mg tablet 00:00: mouth 3 [place] 00 (three) Medical times Branch daily as needed for Anxiety. diazePAM Yes [id number] 5mg Take 1 Uni vers (VALIUM) 5 9-21 tablet by ity of mg tablet 00:00: mouth 3 [place] 00 (three) Medical times Branch daily as needed for Anxiety. cholecalcif 2021- No [id number] 1000U Take 1 Univers morgan, 05-05 [id number] tablet by ity o f vitamin D3, 00:00: 04:59 mouth [place] 25 mcg 00 :00 the Medical (1,000 morning Branch unit) for 5 tablet days. zinc 2021- No [id number] 50mg Take 1 Uni vers sulfate 50 05-05 [id number] capsule by ity of mg zinc 00:00: 04:59 mouth in [place] (220 mg) 00 :00 the Medical capsule morning Branch for 5 days. cholecalcif 2021- No [id number] 1000U Take 1 Univers morgan, 05-05 [id number] tablet by ity o f vitamin D3, 00:00: 04:59 mouth [place] 25 mcg 00 :00 the Medical (1,000 morning Branch unit) for 5 tablet days. zinc 2021- No [id number] 50mg Take 1 Uni vers sulfate 50 05-05 [id number] capsule by ity of mg zinc 00:00: 04:59 mouth in [place] (220 mg) 00 :00 the Medical capsule morning Branch for 5 days. MOMETASONE Yes Use in [facility] rs FUROATE 05-04 each ity of (NASONEX 16:58: nostril. [place] NASAL) 28 Medical Branch HYDROcodone Yes 1{tbl} Take 1 Un nathen -acetaminop 9-04 tablet by ity of hen 7.5-325 16:58: mouth 3 [place] as mg per 28 (three) Medical tablet times Branch daily. OXYGEN-AIR 2021-0 Yes by Univers DELIVERY 9-04 Miscellane ity o f SYSTEMS 16:58: ous route. Tripp morgan [address] Branch predniSONE 0 Yes 5mg Take 5 mg Un nathen 5 mg tablet 9-04 by mouth. ity of 16:58: [address] Branch MOMETASONE Yes Use in Unive [...] f SYSTEMS 16:58: ous route. Tripp morgan [address] Branch predniSONE 0 Yes 5mg Take 5 mg Un nathen 5 mg tablet 9-04 by mouth. ity of 16:58: [address] MOMETASONE Yes Use in Unive rs [...] ity o f SYSTEMS 16:58: ous route. [address] Branch predniSONE 2021-0 Yes 5mg Take 5 mg Un nathen 5 mg tablet 9-04 by mouth. ity of 16:58: [address] Branch MOMETASONE Yes Use in Unive [...] f SYSTEMS 16:58: ous route. Tripp morgan [address] predniSONE Yes 5mg Take 5 mg Un nathen 5 mg tablet 04 by mouth. ity of 16:58: [address] MOMETASONE Yes Use in Unive rs FUROATE 05-04 each ity of (NASONEX 16:58: nostril. [place] NASAL) Medical Branch HYDROcodone Yes 1{tbl} Take 1 Un nathen -acetaminop 9-04 tablet by ity of hen 7.5-325 16:58: mouth 3 [place] mg per 28 (three) Medical tablet times Branch daily. OXYGEN-AIR 0 Yes by Univers DELIVERY 05-04 Miscellane ity o f SYSTEMS 16:58: ous route. Tripp morgan [address] predniSONE Yes 5mg Take 5 mg Un nathen 5 mg tablet 05-04 by mouth. ity of 16:58: [address] MOMETASONE Yes Use in Unive rs FUROATE 05-04 each ity of (NASONEX 16:58: nostril. [place] NASAL) [address] [place] [address] Branch HYDROcodone Yes 1{tbl} Take 1 Un nathen -acetaminop 9-04 tablet by ity of hen 7.5-325 16:58: mouth 3 [place] as mg per 28 (three) Medical tablet times Branch daily. OXYGEN-AIR Yes by Univers DELIVERY 05-04 Miscellane ity o f SYSTEMS 16:58: ous route. [address] predniSONE Yes 5mg Take 5 mg Un nathen 5 mg tablet 05-04 by mouth. ity of 16:58: [address] TIOTROPIUM 2022- No Inhale. Uni vers BROMIDE 05-04 ity of (SPIRIVA 11:06: 00:00 [place] RESPIMAT 58 :00 Medical INHALE) Branch promethazin 2021- No 5mL Take 5 mL Univers e-codeine 05-04 by mouth. ity of 6.25-10 11:06: 00:00 [place] mg/5 mL 58 :00 Medical syrup Branch methocarbam Yes [id number] 500mg Take 1 Univers oL 500 mg 05-04 [id number] tablet by it y of tablet 00:00: mouth 3 (three) Medical times Branch daily as needed (Muscle spasms). methocarbam Yes [id number] 500mg Take 1 Univers oL 500 mg - [id number] tablet by it y of tablet 00:00: mouth 3 (three) Medical times Branch daily as needed (Muscle spasms). methocarbam Yes [id number] 500mg Take 1 Univers oL 500 mg 05-04 [id number] tablet by it y of tablet 00:00: mouth (three) Medical times Branch daily as needed (Muscle spasms). methocarbam Yes [id number] 500mg Take 1 Univers oL 500 mg 05-04 [id number] tablet by it y of tablet 00:00: mouth 3 (three) Medical times Branch daily as needed (Muscle spasms). methocarbam Yes [id number] 500mg Take 1 Univers oL 500 mg - [id number] tablet by it y of tablet 00:00: mouth 3 (three) Medical times Branch daily as needed (Muscle spasms). methocarbam Yes [id number] 500mg Take 1 Univers oL 500 mg - [id number] tablet by it y of tablet 00:00: mouth 3 (three) Medical times Branch daily as needed (Muscle spasms). acetaminoph 2022- No [id number] 650mg Take 2 Univers en 325 mg 05-04 [id number] tablets by ity of tablet 00:00: 04:59 mouth [place] 00 :00 every 6 Medical (six) Branch hours as needed for Pain (scale 1-3) or Temp > 38.5 C. acetaminoph 2022- No [id number] 650mg Take 2 Univers en 325 mg -05-05 [id number] tablets by ity of tablet 00:00: 04:59 mouth [place] 00 :00 every 6 Medical (six) Branch hours as needed for Pain (scale 1-3) or Temp > 38.5 C. acetaminoph 2022- No [id number] 650mg Take 2 Univers en 325 mg -05-05 [id number] tablets by ity of tablet 00:00: 04:59 mouth [place] 00 :00 every 6 Medical (six) Branch hours as needed for Pain (scale 1-3) or Temp > 38.5 C. acetaminoph 2022- No [id number] 650mg Take 2 Univers en 325 mg 05-04 [id number] tablets by ity of tablet 00:00: 04:59 mouth [place] 00 :00 every 6 Medical (six) Branch hours as needed for Pain (scale 1-3) or Temp > 38.5 C. acetaminoph 2022- No [id number] 650mg Take 2 Univers en 325 mg 05-04 [id number] tablets by ity of tablet 00:00: 04:59 mouth [place] 00 :00 every 6 Medical (six) Branch hours as needed for Pain (scale 1-3) or Temp > 38.5 C. acetaminoph 2022- No [id number] 650mg Take 2 Univers en 325 mg 05-04 [id number] tablets by ity of tablet 00:00: 04:59 mouth [place] 00 :00 every 6 Medical (six) Branch hours as needed for Pain (scale 1-3) or Temp > 38.5 C. citalopram 2021- No [id number] 20mg Take 1 Univers 20 mg 9- 10-05 tablet by ity of tablet 00:00: 04:59 mouth in [place] 00 :00 the Medical morning Branch for 30 days. citalopram 2021- No [id number] 20mg Take 1 Univers 20 mg 9- 10-05 tablet by ity of tablet 00:00: 04:59 mouth in [place] 00 :00 the Medical morning Branch for 30 days. citalopram 2021- No [id number] 20mg Take 1 Univers 20 mg 05-04 tablet by ity of tablet 00:00: 04:59 mouth in [place] 00 :00 the Medical morning [place] for 30 days. citalopram 2021- No [id number] 20mg Take 1 Univers 20 mg 05-04 tablet by ity of tablet 00:00: 04:59 mouth in [place] 00 :00 the Medical morning Branch for 30 days. citalopram 2021- No [id number] 20mg Take 1 Univers 20 mg 05-04 tablet by ity of tablet 00:00: 04:59 mouth in [place] 00 :00 the Medical morning Branch for 30 days. ascorbic 2021- No [id number] 500mg Take 1 Univers acid, 05-04 [id number] tablet by ity o f vitamin C, 00:00: 04:59 mouth [place] 500 mg 00 :00 the Medical tablet morning Branch and 1 tablet in the evening. Do all this for 5 days. dexAMETHaso No [id number] 6mg Take 1 Univers ne 6 mg 05-04 [id number] tablet by ity of tablet 00:00: 04:59 mouth in [place] 00 :00 the [facility] for 5 days. ascorbic 2021- No [id number] 500mg Take 1 Univers acid, 05-04 [id number] tablet by ity o f vitamin C, 00:00: 04:59 [place] 500 mg 00 :00 the Medical tablet morning Branch and 1 tablet in the evening. Do all this for 5 days. dexAMETHaso 2021- No [id number] 6mg Take 1 Univers ne 6 mg 05-04 [id number] tablet by ity of tablet 00:00: 04:59 mouth in [place] 00 :00 the [facility] for 5 days. magnesium 2021- No 2g [...] [place] mg 00 :00 dose, On Medical 05/02/22 Branch at 1315, Routine methocarbam Yes 500mg 500 mg, Un nathen oL 05-02 Oral, ity of (ROBAXIN) 17:24: TIDPRN, [place] tablet 500 33 Starting Medic al mg on Thu Branch 05/02/22 at 1224, Until Discontinu ed, Routine, Muscle Spasms acetaminoph Yes 650mg 650 mg, Un nathen en 05-02 Oral, ity of (TYLENOL) 09:36: Q6HPRN, [place] tablet 650 19 Starting Medic al mg [...] 0900, Until Discontinu ed, Routine dexamethaso 2021- No 6mg 6 mg, Univ ers ne sod [...] On Lisseth 05/01/22 at 0900, Routine enoxaparin Yes 40mg 40 [...] [place] mg 00 :00 dose, On Medical Thu Branch 04/30/22 at 1315, Routine diazePAM 2021-0 [...] 00 First dose Med ical mg on Thu04/30/22 at 0900, Until Discontinu ed, Routine ascorbic 2021-0 Yes 500mg 500 mg, Unive rs acid 04-30 Oral, BID, ity of (vitamin C) 13:15: First dose [place] (VITAMIN C) 00 on Thu Medica l tablet 500 04/30/22 at [facility] mg 0815, Until Discontinu ed, Routine ipratropium [...] of succ 12:15: 11:27 s, ONCE, 1 [place] (SOLU-MEDRO 00 :00 dose, On Medi josé miguel L) Thu Branch injection 04/30/22 at 125 mg 0715, 2 mL ipratropium 0 Yes 3mL 3 mL, Unive rs -albuteroL 04-24 Inhalation ity of (DUONEB) 01:00: , QID, [place] 0.5 mg-3 00 First dose Medic al mg(2.5 mg on Thu Branch base)/3 mL 04/23/22 at nebulizer 2000, solution 3 Until mL Discontinu ed, Routine methylpredn Yes 125mg 125 mg, Un nathen isolone sod 04-23 Intravenou it y of succ 23:00: s, Q6H, [place] (SOLU-MEDRO 00 First dose Me dical L) [...] status epilepticu s? No diazePAM 2022-0 Yes [id number] 5mg Take 1 Uni vers (VALIUM) 5 5-13 tablet by ity of mg tablet 00:00: mouth 3 (three) Medical times Branch daily as needed for Anxiety. diazePAM 2021-0 Yes [id number] 5mg Take 1 Uni vers (VALIUM) 5 5-13 tablet by ity of mg tablet 00:00: mouth 3 (three) Medical times Branch daily as needed for Anxiety. diazePAM 2021-0 Yes [id number] 5mg Take 1 Uni vers (VALIUM) 5 5-13 tablet by ity of mg tablet 00:00: mouth 3 (three) Medical times Branch daily as needed for Anxiety. diazePAM 2021-0 Yes [id number] 5mg Take 1 Uni vers (VALIUM) 5 5-13 tablet by ity of mg tablet 00:00: mouth 3 (three) Medical times Branch daily as needed for Anxiety. diazePAM 2021-0 Yes [id number] 5mg Take 1 Uni vers (VALIUM) 5 5-13 tablet by ity of mg tablet 00:00: mouth (three) Medical times Branch daily as needed for Anxiety. diazePAM 0 Yes [id number] 5mg Take 1 Uni vers (VALIUM) 5 5-13 tablet by ity of mg tablet 00:00: mouth (three) Medical times Branch daily as needed for Anxiety. diazePAM 2021-0 Yes [id number] 5mg Take 1 Uni vers (VALIUM) 5 5-13 tablet by ity of mg tablet 00:00: mouth 3 (three) Medical times Branch daily as needed for Anxiety. diazePAM 2021-0 Yes [id number] 5mg Take 1 Uni vers (VALIUM) 5 5-13 tablet by ity of mg tablet 00:00: mouth 3 (three) Medical times Branch daily as needed for Anxiety. diazePAM 2021-0 Yes [id number] 5mg Take 1 Uni vers (VALIUM) 5 5-13 tablet by ity of mg tablet 00:00: mouth 3 (three) Medical times Branch daily as needed for Anxiety. diazePAM 2021-0 Yes [id number] 5mg Take 1 Uni vers (VALIUM) 5 5-13 tablet by ity of mg tablet 00:00: mouth 3 (three) Medical times Branch daily as needed for Anxiety. diazePAM 2021-0 2022- No [id number] 5mg Take 1 Un nathen (VALIUM) 5 5-13 09- tablet by ity of mg tablet 00:00: [...] BY ity of tablet 00:00: MOUTH 2 [place] TIMES A Medical DAY Branch acetaZOLAMI 2021-0 [...] BY ity of tablet 00:00: MOUTH 2 [place] TIMES A Medical DAY Branch acetaZOLAMI 2021-0 Yes TAKE 1/2 Un nathen DE 250 mg 3-02 TABLE BY ity of tablet 00:00: MOUTH 2 [place] TIMES A Medical DAY Branch acetaZOLAMI 2021-0 Yes TAKE 1/2 Un nathen [place] 250 mg 3-02 TABLE BY ity of tablet 00:00: MOUTH 2 [place] TIMES A Medical DAY Branch acetaZOLAMI 2021-0 Yes TAKE 1/2 Un nathen DE 250 mg 3-02 TABLE BY ity of tablet 00:00: MOUTH 2 [place] TIMES A Medical DAY Branch acetaZOLAMI 2022-0 Yes TAKE 1/2 Un nathen DE 250 mg 3-02 TABLE BY ity of tablet 00:00: MOUTH 2 TIMES A Medical DAY Branch acetaZOLAMI 2021-0 Yes TAKE 1/2 Un nat[place] 250 mg 3-02 TABLE BY ity of tablet 00:00: MOUTH 2 00 TIMES A Medical DAY Branch acetaZOLAMI 2021-0 Yes TAKE 1/2 Un nat[place] 250 mg 3-02 TABLE BY ity of tablet 00:00: MOUTH 2 [place] 00 TIMES A Medical DAY Branch AMLODIPINE 2-0 Yes [id number] TAKE 1 Un nathen 5 mg tablet 2-14 TABLET BY ity of 00:00: [facility] EVERY DAY Medical Branch AMLODIPINE 2021-0 Yes [id number] TAKE 1 [place] 5 mg tablet 2-14 TABLET BY ity of 00:00: [facility] EVERY DAY Medical Branch AMLODIPINE 2-0 Yes [id number] TAKE 1 [place] 5 mg tablet 2-14 TABLET BY ity of 00:00: [facility] EVERY DAY Medical Branch AMLODIPINE 2-0 Yes [id number] TAKE 1 Un nathen 5 mg tablet 2-14 TABLET BY ity of 00:00: [facility] EVERY DAY Medical Branch AMLODIPINE 2-0 Yes [id number] TAKE 1 Un nathen 5 mg tablet 2-14 TABLET BY ity of 00:00: [facility] EVERY DAY Medical Branch AMLODIPINE 2-0 Yes [id number] TAKE 1 Un nathen 5 mg tablet 2-14 TABLET BY ity of 00:00: [facility] EVERY DAY Medical Branch AMLODIPINE 2-0 Yes [id number] TAKE 1 Un nathen 5 mg tablet 2-14 TABLET BY ity of 00:00: [facility] EVERY DAY Medical Branch AMLODIPINE 2022-0 Yes [id number] TAKE 1 Un nathen 5 mg tablet 2-14 TABLET BY ity of 00:00: [facility] EVERY DAY Medical Branch AMLODIPINE 2022-0 Yes [id number] TAKE 1 Un nathen 5 mg tablet 2-14 TABLET BY ity of 00:00: [facility] EVERY DAY Medical Branch AMLODIPINE 2022-0 Yes [id number] TAKE 1 Un nathen 5 mg tablet 2-14 TABLET BY ity of 00:00: [facility] EVERY DAY Medical Branch AMLODIPINE 2022-0 Yes [id number] TAKE 1 Un nathen 5 mg tablet 2-14 TABLET BY ity of 00:00: MOUTH EVERY DAY Medical Branch AMLODIPINE 2021-0 Yes [id number] TAKE 1 Un nathen 5 mg tablet 2-14 TABLET BY ity of 00:00: MOUTH EVERY DAY Medical Branch AMLODIPINE 2021-0 Yes [id number] TAKE 1 Un nathen 5 mg tablet 2-14 TABLET BY ity of 00:00: MOUTH EVERY DAY Medical Branch AMLODIPINE 2021-0 Yes [id number] TAKE 1 Un [place] 5 mg tablet 2-14 TABLET BY ity of 00:00: MOUTH EVERY DAY Medical Branch diazePAM 2020-08- No [id number] 5mg Take 1 Un [place]hen (VALIUM) 5 [...] Medical unit CpDR Branch pantoprazol 2020-08 Yes [id number] 40mg Take 1 Univers e 40 mg EC 0-04 tablet by ity of tablet 00:00: mouth [place] 00 daily. Medical Branch pantoprazol 2020-08 Yes [id number] 40mg Take 1 Univers e 40 mg EC 0-04 tablet by ity of tablet 00:00: mouth [place] 00 daily. Medical Branch pantoprazol 2020-08 Yes [id number] 40mg Take 1 Univers e 40 mg EC 0-04 tablet by ity of tablet 00:00: mouth [place] 00 daily. Medical Branch pantoprazol 2020-08 Yes [id number] 40mg Take 1 Univers e 40 mg EC 0-04 tablet by ity of tablet 00:00: mouth [place] 00 daily. Medical Branch pantoprazol 2020-08 Yes [id number] 40mg Take 1 Univers e 40 mg EC 0-04 tablet by ity of tablet 00:00: mouth [place] 00 daily. Medical Branch pantoprazol 2020-08 Yes [id number] 40mg Take 1 Univers e 40 mg EC 0-04 tablet by ity of tablet 00:00: mouth [place] 00 daily. Medical Branch pantoprazol 2020-08 Yes [id number] 40mg Take 1 Univers e 40 mg EC 0-04 tablet by ity of tablet 00:00: mouth [place] 00 daily. Medical Branch pantoprazol 2020-08 Yes [id number] 40mg Take 1 Univers e 40 mg EC 0-04 tablet by ity of tablet 00:00: mouth [place] 00 daily. Medical Branch pantoprazol 2020-08 Yes [id number] 40mg Take 1 Univers e 40 mg EC 0-04 tablet by ity of tablet 00:00: mouth [place] 00 daily. Medical Branch pantoprazol 2020-08 Yes [id number] 40mg Take 1 Univers e 40 mg EC 0-04 tablet by ity of tablet 00:00: mouth [place] 00 daily. Medical Branch pantoprazol 2020-08 Yes [id number] 40mg Take 1 Univers e 40 mg EC 0-04 tablet by ity of tablet 00:00: mouth [place] 00 daily. Medical Branch pantoprazol 2020-08 Yes [id number] 40mg Take 1 Univers e 40 mg EC 0-04 tablet by ity of tablet 00:00: mouth [place] 00 daily. Medical Branch pantoprazol 2020-08 Yes [id number] 40mg Take 1 Univers e 40 mg EC 0-04 tablet by ity of tablet 00:00: mouth [place] 00 daily. Medical Branch pantoprazol 2020-08 Yes [id number] 40mg Take 1 Univers e 40 mg EC 0-04 tablet by ity of tablet 00:00: mouth [place] 00 daily. Medical Branch predniSONE 0 Yes 5mg Take 5 mg Un nat[place] 5 mg tablet 4-13 by mouth. ity of 14:13: [address] Branch predniSONE 2020-0 Yes 5mg Take 5 mg Un nathen 5 mg tablet 4-13 by mouth. ity of 14:13: [address] Branch predniSONE 2020-0 Yes 5mg Take 5 mg Un nathen 5 mg tablet 4-13 by mouth. ity of 14:13: [address] Branch predniSONE 2020-0 Yes 5mg Take 5 mg Un nathen 5 mg tablet 4-13 by mouth. ity of 14:13: [address] Branch predniSONE 2020-0 Yes 5mg Take 5 mg Un nat[place] 5 mg tablet 4-13 by mouth. ity of 14:13: [address] predniSONE 2020-0 Yes 5mg Take 5 mg Un nathen 5 mg tablet 4-13 by mouth. ity of 14:13: [address] predniSONE 2021-0 Yes 5mg Take 5 mg Un nathen 5 mg tablet 4-13 by mouth. ity of 14:13: [address] predniSONE Yes 5mg Take 5 mg Un nat[place] 5 mg tablet 4-13 by mouth. ity of 14:13: [address] HYDROcodone Yes 1{tbl} Take 1 Un nathen -acetaminop 3-12 tablet by ity of hen 7.5-325 14:37: mouth 3 [place] mg per 07 (three) Medical tablet times Branch daily. OXYGEN-AIR Yes by Univers DELIVERY 3-12 Miscellane ity o f SYSTEMS 14:37: ous route. Tripp morgan [address] Branch HYDROcodone Yes 1{tbl} Take 1 Un nathen -acetaminop 3-12 tablet by ity of hen 7.5-325 14:37: mouth 3 [place] as mg per 07 (three) Medical tablet times Branch daily. OXYGEN-AIR Yes by Univers DELIVERY 3-12 Miscellane ity o f SYSTEMS 14:37: ous route. Tripp morgan [address] HYDROcodone Yes 1{tbl} Take 1 Un nathen -acetaminop 3-12 tablet by ity of hen 7.5-325 14:37: mouth 3 [place] mg per 07 (three) Medical tablet times Branch daily. OXYGEN-AIR Yes by Univers DELIVERY 3-12 Miscellane ity o f SYSTEMS 14:37: ous route. Tripp morgan [address] HYDROcodone Yes 1{tbl} Take 1 Un nathen -acetaminop 3-12 tablet by ity of hen 7.5-325 14:37: mouth 3 [place] mg per 07 (three) Medical tablet times Branch daily. OXYGEN-AIR Yes by Univers DELIVERY 3-12 Miscellane ity o f SYSTEMS 14:37: ous route. Tripp morgan [address] Branch HYDROcodone Yes 1{tbl} Take 1 Un nathen -acetaminop 3-12 tablet by ity of hen 7.5-325 14:37: mouth 3 [place] mg per 07 (three) Medical tablet times Branch daily. OXYGEN-AIR 2021-0 Yes by Univers DELIVERY 3-12 Miscellane ity o f SYSTEMS 14:37: ous route. Tripp morgan [address] Branch HYDROcodone Yes 1{tbl} Take 1 Un nathen -acetaminop 3-12 tablet by ity of hen 7.5-325 14:37: mouth 3 [place] mg per 07 (three) Medical tablet times Branch daily. OXYGEN-AIR Yes by Univers DELIVERY 3-12 Miscellane ity o f SYSTEMS 14:37: ous route. Tripp morgan [address] Branch HYDROcodone Yes 1{tbl} Take 1 Un nathen -acetaminop 3-12 tablet by ity of hen 7.5-325 14:37: mouth 3 [place] mg per 07 (three) Medical tablet times Branch daily. OXYGEN-AIR Yes by Univers DELIVERY 3-12 Miscellane ity o f SYSTEMS 14:37: ous route. Tripp morgan [address] Branch HYDROcodone Yes 1{tbl} Take 1 Un nathen -acetaminop 3-12 tablet by ity of hen 7.5-325 14:37: mouth 3 Shawn as mg per 07 (three) Medical tablet times Branch daily. OXYGEN-AIR Yes by Univers DELIVERY 3-12 Miscellane ity o f SYSTEMS 14:37: ous route. Tripp morgan [place] [address] Medical Branch SPIRIVA Yes INHALE 2 Univer [...] nostril. [place] NASAL) 14 Medical Branch buprenorphi 2018-0 Yes APPLY ONE U nivers ne 10 [...] A WEEK FOR Medical 28 DAYS Branch pantoprazol Yes 20mg QD Take [address] [facility] 4-30 by [facility] (PROTONIX) 10:34: daily. Medic al 20 MG 04 Center tablet cetirizine Yes 10mg Take [address] (ZYRTEC) 10 4-30 by mouth Luke s MG tablet 10:34: daily as [facility] 04 needed for Center Allergies. promethazin Yes 5mL Take [address] [facility] e-codeine 4-30 by mouth [facility] (PHENERGAN 10:34: every 4 [facility] WITH 04 (four) Center CODEINE) hours as 6.25-10 needed for mg/5 mL Cough. syrup gabapentin 2018- Yes 100mg QD Take [address] (NEURONTIN) 4-30 mg by [facility] 100 MG 10:34: mouth Medical capsule 04 daily. [place] OXYGEN-AIR Yes by [facility] DELIVERY 4-30 [facility]ane [facility] SYSTEMS 10:34: ous route. [place] [address] Center aspirin 81 2018- Yes 81mg QD Take [address] MG EC 4-30 by mouth [facility] tablet 10:34: daily. [address] ALPRAZolam Yes .5mg Take 0.5 CH[facility] [...] Luke s 5 MG tablet 10:34: daily. [facility] 04 Center budesonide- 2019-0 Yes 2{puff} Q.5D [...] every 7 Cente r PTWK days. lactulose 20190 Yes 20g Take [address] (CHRONULAC) 4-30 by mouth Luke s 10 gram/15 10:34: daily as Med ical mL (15 mL) 04 needed. Center solution docusate 2019 Yes 200mg Take [address] sodium [...] by mouth [facility] (PHENERGAN 10:34: every 4 [facility] WITH 04 (four) Center CODEINE) hours as 6.25-10 needed for mg/5 mL Cough. syrup gabapentin 2019-0 Yes 100mg QD Take [address] (NEURONTIN) 4-30 mg by [facility] 100 MG 10:34: mouth Medical capsule 04 daily. [place] OXYGEN-AIR Yes by [facility] DELIVERY 4-30 [facility]ane [facility] SYSTEMS 10:34: ous route. [place] [address] Center aspirin 81 2019-0 Yes 81mg QD Take [address] MG EC 4-30 by mouth [facility] tablet 10:34: daily. [address] ALPRAZolam Yes .5mg Take 0.5 CHI [...] Luke s 5 MG tablet 10:34: daily. [address] budesonide- 2019-0 Yes 2{puff} Q.5D Inhale [address] formoterol 4-30 puffs by [facility] (SYMBICORT) 10:34: mouth via M edical 160-4.5 04 inhaler 2 Center mcg/actuati (two) on inhaler times daily. amLODIPine 2019-0 Yes 5mg QD Take [address] (NORVASC) 5 4-30 by mouth Luke s MG tablet 10:34: daily. Medica l [address] [place] [address] tiotropium 2018-0 Yes 18ug Q.5D Inhale 18 [...] by mouth [facility] (PHENERGAN 10:34: every 4 [facility] WITH 04 (four) Center CODEINE) hours as 6.25-10 needed for mg/5 mL Cough. syrup gabapentin 2018-0 Yes 100mg QD Take [address] (NEURONTIN) 4-30 mg by [facility] 100 MG 10:34: mouth Medical capsule 04 daily. Center OXYGEN-AIR 2018-[address] [facility] DELIVERY 4-30 Miscellane [facility] SYSTEMS 10:34: ous route. [facility] MIS 04 Center aspirin 81 2019-0 Yes 81mg QD Take [address] MG EC 4-30 by mouth [facility] tablet 10:34: daily. [facility] 04 Center ALPRAZolam 2019-0 Yes .5mg Take [...] nebulizer (six) solution hours as needed. predniSONE 20190 Yes 5mg QD Take [address] (DELTASONE) 4-30 by mouth Luke s 5 MG tablet 10:34: daily. [facility] 04 Center budesonide- 2019-0 Yes 2{puff} Q.5D Inhale [address] formoterol 4-30 puffs by [facility] (SYMBICORT) 10:34: mouth via M edical 160-4.5 04 inhaler 2 Center mcg/actuati (two) on inhaler times daily. aspirin 81 2019-0 Yes 81mg QD Take [address] MG EC 4-30 by mouth [facility] tablet 10:34: daily. Medical 04 [place] ALPRAZolam 2019-0 Yes .5mg Take 0.5 CHI [...] tablet 10:34: daily. Medi josé miguel 04 [place] budesonide- 2019-0 Yes 2{puff} Q.5D Inhale [address] formoterol 4-30 puffs by [facility] (SYMBICORT) 10:34: mouth via M edical 160-4.5 04 inhaler 2 Center mcg/actuati (two) on inhaler times daily. amLODIPine 0 Yes 5mg QD Take [address] (NORVASC) 5 4-30 by mouth Luke s MG tablet 10:34: daily. Medica l [address] [place] [address] amLODIPine 2019-0 Yes 5mg QD Take [address] (NORVASC) 5 4-30 by mouth Luke s MG tablet 10:34: daily. Medica l [address] [place] [address] tiotropium 2019-0 Yes 18ug Q.5D Inhale 18 [...] needed for mg/5 mL Cough. syrup gabapentin 0 Yes 100mg QD Take [address] (NEURONTIN) 4-30 mg by [facility] 100 MG 10:34: mouth Medical capsule 04 daily. Center tiotropium 20190 Yes 18ug Q.5D Inhale [address] (SPIRIVA) 4-30 mcg by [facility] 18 mcg 10:34: mouth via Medica l inhalation 04 inhaler 2 Cent er capsule (two) times daily. OXYGEN-AIR 2019-[address] [facility] DELIVERY 4-30 Miscellane [facility] SYSTEMS 10:34: ous route. Medi josé miguel MISC 04 Center HYDROcodone 2018-0 Yes 1{tbl} Take 1 CH [...] (15 mL) 04 needed. Center solution docusate 2018-0 Yes 200mg Take [address] sodium 4-30 mg by [facility] (COLACE) 10:34: mouth Medical 100 MG 04 daily as Center capsule needed for Constipati on. psyllium 2019-0 Yes .52g Take 0.[address] 0.52 gram 4-30 g by mouth Luke s capsule 10:34: every 7 Medical 04 days. Center Butrans Butrans Yes Na Guido 1 patch to Common skin [facility] Lactulose Lactulose Yes Na Guido 15 ml C ommon [facility] Lopressor Lopressor Yes Na Guido 1 tablet Common with food [facility] Spiriva Spiriva Yes Na Gudio 2 puffs Com mon Respimat Respimat [facility] Aspirin 81 Aspirin 81 Yes Na Guido 1 tablet Common [facility] Zyrtec Zyrtec Yes Na Guido 1 tablet Comm on Allergy Allergy [facility] [place] Yes Na Guido 1 tablet Common as needed [facility] Albuterol-I Albuterol-I Yes Na Guido not Common pratropium pratropium defined [facility] Alprazolam Alprazolam Yes Na Guido 1 tablet [facility] Symbicort Symbicort Yes Na Guido 2 puffs [facility] Norvasc Norvasc Yes Na Guido 1 tablet Co mmon [facility] Protonix Protonix Yes Na Guido 1/2 tablet Common [facility] PredniSONE PredniSONE Yes Na Guido 1 tablet [facility] Combivent Combivent Yes Na Guido not Co mmon defined [facility] Butrans 10 Butrans 10 [...] QD Norvasc 5 MG MG t} MG [place] No 1{table QID [place] 7.5-325 MG 7.5-325 MG t_as_ne 7.5-325 MG [...] Status Comments Sour e Immunization Name Name Helen 2022-05-04 Completed University of 00:00:00 [facility] [place] Remdesivir 2022-05-04 Completed University of 00:00:00 [facility] [place] Remdesivir 2022-05-04 Completed University of 00:00:00 [facility] [place] Remdesivir 2022-05-04 Completed University of 00:00:00 [facility] [place] Remdesivir 2022-05-04 Completed University of 00:00:00 [facility] [place] Remdesivir 2022-05-04 Completed University of 00:00:00 [facility] [place] Remdesivir 2022-05-03 Completed University of 00:00:00 [facility] [place] Remdesivir 2022-05-03 Completed University of 00:00:00 [facility] [place] Remdesivir 2022-05-03 Completed University of 00:00:00 [facility] [place] Remdesivir 2022-05-03 Completed University of 00:00:00 [facility] [place] Remdesivir 2022-05-03 Completed University of 00:00:00 [place] [facility] Remdesivir 2022-05-03 Completed University of 00:00:00 [place] [facility] Remdesivir 2022-05-02 Completed University of 00:00:00 [place] [facility] Remdesivir 2022-05-02 Completed University of 00:00:00 [place] [facility] Remdesivir 2022-05-02 Completed University of 00:00:00 [place] [facility] Remdesivir 2022-05-02 Completed University of 00:00:00 [facility] Remdesivir 2022-05-02 Completed University of 00:00:00 [place] [facility] Remdesivir 2022-05-02 Completed University of 00:00:00 [place] [facility] Remdesivir 2022-05-01 Completed University of 00:00:00 [place] [facility] Remdesivir 2022-05-01 Completed University of 00:00:00 [place] [facility] Remdesivir 2022-05-01 Completed University of 00:00:00 [facility] Remdesivir 2022-05-01 Completed University of 00:00:00 [place] [facility] Remdesivir 2022-05-01 Completed University of 00:00:00 [place] [facility] Remdesivir 2022-05-01 Completed University of 00:00:00 [facility] Branch Remdesivir 2022-04-30 Completed University of 00:00:00 [place] [facility] Remdesivir 2022-04-30 Completed University of 00:00:00 [place] [facility] Remdesivir 2022-04-30 Completed University of 00:00:00 [place] [facility] Remdesivir 2022-04-30 Completed University of 00:00:00 [facility] Remdesivir 2022-04-30 Completed University of 00:00:00 [place] [facility] Remdesivir 2022-04-30 Completed University of 00:00:00 [facility] [place] SARS-COV-2 COVID-19 2021-08-30 Completed Unive rsity of [...] [place] Medi josé miguel BOOSTER VACCINE Branch Kenalog Kenalog 2018-11-08 Completed [facility] - (Triamcinolone) (Triamcinolone) 13:04:00 [facility] Vital Signs Vital Name Observation Time Observation Value Comments Source Systolic blood 2022-05-21 19:06:00 159 mm[Hg] Univer sity of pressure [place] [facility] Diastolic blood 2022-05-21 19:06:00 73 mm[Hg] Unive rsity of pressure [place] [facility] Heart rate 2022-05-21 19:05:00 109 /min Universi ty of [place] [facility] Body temperature 2022-05-21 19:05:00 37.5 Odalys Univ ersity of [place] [facility] Body height 2022-05-21 19:05:00 154.9 cm Universi ty [facility] [place] [facility] Body weight 2022-05-21 19:05:00 63.05 kg Universi ty [facility] [place] [facility] BMI 2022-05-21 19:05:00 26.26 kg/m2 Universi ty [facility] [place] [facility] Oxygen saturation in 2022-05-21 19:05:00 96 /min University of Arterial blood by [place] Medi josé miguel Pulse oximetry Branch Heart rate 2022-05-04 20:35:00 107 /min Universi ty of [place] [facility] Respiratory rate 2022-05-04 20:35:00 18 /min Univ ersity of [place] [facility] Oxygen saturation in 2022-05-04 20:35:00 99 /min University of Arterial blood by [place] [employer] josé miguel Pulse oximetry Branch Systolic blood 2022-05-04 17:00:00 121 mm[Hg] Univer sity of pressure [place] [facility] Diastolic blood 2022-05-04 17:00:00 75 mm[Hg] Unive rsity of pressure [place] [facility] Body temperature 2022-05-04 17:00:00 36.5 Odalys Univ ersity of [place] [facility] Body weight 2022-05-04 10:05:00 65.499 kg Universi ty [facility] [place] [facility] BMI 2022-05-04 10:05:00 27.28 kg/m2 Universi ty [facility] [place] [facility] Body height 2022-04-30 13:07:00 154.9 cm Universi ty [facility] [place] [facility] Heart rate 2022-04-23 22:58:00 104 /min Universi ty [facility] [place] [facility] Respiratory rate 2022-04-23 22:58:00 18 /min Univ ersity of [place] [facility] Oxygen saturation in 2022-04-23 22:58:00 100 /min University of Arterial blood by [place] [employer] josé miguel Pulse oximetry Branch Systolic blood 2022-04-23 22:26:00 130 mm[Hg] Univer sity of pressure [place] [facility] Diastolic blood 2022-04-23 22:26:00 81 mm[Hg] Unive rsity of [facility] Body temperature 2022-04-23 22:26:00 37.22 Odalys [facility] Body height 2022-04-23 22:26:00 154.9 cm Universi ty of [facility] [place] Body weight 2022-04-23 22:26:00 64.411 kg Universi ty [facility] BMI 2022-04-23 22:26:00 26.83 kg/m2 Universi ty [facility] Systolic blood 2022-01-10 18:39:00 164 mm[Hg] Univer sity of [facility] Diastolic blood 2022-01-10 18:39:00 82 mm[Hg] [facility] Heart rate 2022-01-10 18:38:00 108 /min Universi ty [facility] Body temperature 2022-01-10 18:38:00 37.33 Odalys [facility] Body height 2022-01-10 18:38:00 154.9 cm Universi ty [facility] Body weight 2022-01-10 18:38:00 65.318 kg Universi ty [facility] BMI 2022-01-10 18:38:00 27.21 kg/m2 Universi ty [facility] Oxygen saturation in 2022-01-10 18:38:00 95 /min [facility] Arterial blood by [facility] Pulse oximetry Branch Procedures Procedure Date / Time Performing Clinician Source Performed EXTERNAL PROVIDER RECORDS 2022-07-15 06:01:00 Doctor Unassigned, [facility] [place] [facility] MAGNESIUM 2022-05-04 10:03:00 Gli Jayden [place] o f [facility] [place] BASIC METABOLIC PANEL 2022-05-04 10:03:00 Jayden Cordero [facility] (NA, K, CL, CO2, GLUCOSE, Medica l Branch BUN, CREATININE, CA) ACUTE CARE VENOUS BLOOD 2022-05-04 10:03:00 Jayden Cordero [facility] ACUTE CARE VENOUS BLOOD 2022-05-03 15:18:00 Gil [facility] MAGNESIUM 2022-05-03 15:14:00 Jayden Cordero [facility] BASIC METABOLIC PANEL 2022-05-03 15:14:00 Jayden Cordero [facility] (NA, K, CL, CO2, GLUCOSE, Medica l Branch BUN, CREATININE, CA) MAGNESIUM 2022-05-02 09:31:00 Prakash Berg [facility] BASIC METABOLIC PANEL 2022-05-02 09:31:00 Prakash Berg [facility] (NA, K, CL, CO2, GLUCOSE, Medica l Branch BUN, CREATININE, CA) CBC WITH DIFF 2022-05-02 09:31:00 Prakash Berg [facility] ACUTE CARE VENOUS BLOOD 2022-05-02 09:28:00 Deedee [facility] MAGNESIUM 2022-05-01 09:20:00 Prakash Berg [facility] BASIC METABOLIC PANEL 2022-05-01 09:20:00 Prakash Berg [facility] (NA, K, CL, CO2, GLUCOSE, Medica l Branch BUN, CREATININE, CA) ACUTE CARE VENOUS BLOOD 2022-05-01 09:20:00 [facility]FF 2022-05-01 09:20:00 Prakash Berg [facility] MRSA / MSSA SCREEN BY 2022-04-30 22:35:00 Jayden Cordero [facility]LO[facility] 2022-04-30 21:28:00 [facility] 2022-04-30 15:47:00 Prakash Berg [facility] COVID-19 (ID NOW RAPID 2022-04-30 11:56:00 Mariposa Craig [facility] TESTING) Medical Branch LAB ONLY COVID 2022-04-30 11:56:00 Mariposa Craig [facility] CRITICAL CARE 2022-04-30 11:54:13 Mariposa Craig [facility] ACUTE CARE ARTERIAL BLOOD 2022-04-30 11:35:00 [facility] Medical Branch XR CHEST 1 VW 2022-04-30 10:37:04 Mariposa Craig [facility] TROPONIN I 2022-04-30 10:13:00 Mariposa Craig [facility] BASIC METABOLIC PANEL 2022-04-30 10:13:00 Mariposa Craig [facility] (NA, K, CL, CO2, GLUCOSE, Medica l Branch BUN, CREATININE, CA) CBC WITH DIFF 2022-04-30 10:13:00 Mariposa Craig [facility] HB ECG ROUTINE & RHYTHM 2022-04-30 09:46:40 Mariposa Craig [facility] EMERGENCY DEPARTMENT 2022-04-30 05:01:00 Doctor Austin [facility] DOCUMENTS [facility] TROPONIN I 2022-04-23 22:38:00 Singer Jeff [facility] COMP. METABOLIC PANEL 2022-04-23 22:38:00 Jeff Sampson [facility] ([id number]) Medical Branch CBC WITH DIFF 2022-04-23 22:38:00 Sampson, [facility] N-TERMINAL PRO-BNP 2022-04-23 22:38:00 Jeff Sampson [facility] Medical [place] HOME HEALTH - OTHER 2022-02-11 05:01:00 Doctor Norman [facility] HOME HEALTH - OTHER 2022-02-07 05:01:00 Doctor Norman [facility] HOME HEALTH - OTHER 2022-02-03 05:01:00 [facility] [facility] HOME HEALTH - OTHER 2022-01-17 05:01:00 Doctor [facility] [facility] HOME HEALTH - OTHER 2021-12-29 05:01:00 Doctor [facility] HOME HEALTH - OTHER 2021-12-20 05:01:00 Doctor [facility] Plan of Care Planned Activity Planned Date Details Comments Source Future Scheduled 2020-05-[address] [facility] Test 00:00:00 (#1) [code = [facility] INFLUENZA VACCINE (#1)] Future Scheduled [address] [facility] Test 00:00:00 (procedure) [code = [facility] 95353129] Future Scheduled [address] 00:00:00 malignant neoplasm Medical C enter of cervix (procedure) [code = 374610023] Future Scheduled [address] [facility] Test 00:00:00 malignant neoplasm Medical C enter of breast (procedure) [code = 069598254] Future Scheduled [address] Test 00:00:00 malignant neoplasm Medical C enter of colon (procedure) [code = 896954952] Encounters Start End Encounter Admission Attending Care Care Encounter Source Date/Time Date/Time Type Type Clinicians Facility Department ID 2021-09-25 Outpatient GuidoChantel [facility] [id number] 2 Common 11:46:50 [id number] [facility] 2021-09-25 Outpatient [facility]Chantel [facility] [id number] 2 Common 11:44:44 [id number] [facility] 2022-07-15 2022-07-15 Orders Doctor DONNA [id number] Univers 00:00:00 00:00:00 Only Unassigned, JONATHAN 350.1.13.10 ity of [place] [facility] 4.2.7.2.686 Shawn as [phone] [address] 2022-06-18 2022-06-18 Outpatient R WENCESLAO [facility] [id number] Univers 13:30:00 13:30:00 DAMIAN brooks of [facility] [place] 2022-05-21 2022-05-21 Office Wenceslao [facility] [id number] Univers 14:30:00 15:00:00 Visit [facility] 350.1.13.10 it y of [place] 4.2.7.2.686 Shawn as MICAH?BLEA [phone] [address] MEDICAL OFFICE BUILDING 2022-05-21 2022-05-21 Outpatient Matthew BILLY [facility] [id number] Univers 14:30:00 14:30:00 DAMIAN cristela [facility] 2022-05-19 2022-05-19 Outpatient Matthew BILLY [facility] [id number] Univers 14:30:00 14:30:00 DAMIAN brooks [facility] 2022-05-07 2022-05-07 Transition LILLY L[facility] [id number] Univers 00:00:00 00:00:00 of Care Harry Simmons MONICA 350.1.13.10 ity of [place]2.[place] [id number] [facility] 403 Branch 2022-04-30 2022-05-04 [facility] [id number] Univers 04:39:00 16:30:00 MARIPOSA brooks [facility] 2022-04-30 2022-05-04 [facility] Mariposa Craig [facility] 1.2.840.11 [id number] Univers 04:39:00 16:30:00 Encounter Jayden Cordero 350.1.13.10 ity [place] [id number] [facility] [address] [place] 2022-04-23 2022-04-23 Emergency X [facility] ERT [id number] Univers 17:28:00 19:04:00 JEFF brooks [facility] 2022-04-23 2022-04-23 Emergency [facility] [id number] Univers 17:28:00 19:04:00 Jeff BUSBY 350.1.13.10 i ty [place] [id number] [facility] 084 Branch 2022-02-11 2022-02-11 Orders Doctor THOMPSON 1.2.840.114 [id number] Univers 00:00:00 00:00:00 Only Unassigned, JONATHAN 350.1.13.10 ity of [place] [facility] 4.2.7.2.686 Shawn as [phone] [address] 2022-02-07 2022-02-07 Orders Doctor DONNA 1.2.840.114 [id number] Univers 00:00:00 00:00:00 Only Unassigned, JONATHAN 350.1.13.10 ity of [place] [facility] 4.2.7.2.686 Shawn as [phone] [address] 2022-02-03 2022-02-03 Orders Doctor DONNA 1.2.840.114 [id number] Univers 00:00:00 00:00:00 Only Unassigned, JONATHAN 350.1.13.10 ity of [place] [facility] 4.2.7.2.686 Shawn as [phone] [address] 2022-01-17 2022-01-17 Orders Doctor THOMPSON 1.2.840.114 [id number] Univers 00:00:00 00:00:00 Only Unassigned, JONATHAN 350.1.13.10 ity of [place] [facility] 4.2.7.2.686 Shawn as [phone] [address] 2022-01-10 2022-01-10 [facility] [id number] Univers 13:00:00 13:55:59 DAMIAN brooks [facility] 2022-01-10 2022-01-10 Office [facility] 1.2.840.114 [id number] Univers 13:00:00 13:15:00 Visit [facility] 350.1.13.10 it y of [place] [facility] 4.2.7.2.686 Shawn as MICAH?BLEA [phone] Md brandon [address] MEDICAL OFFICE BUILDING 2022-01-10 2022-01-10 [facility] [id number] Univers 13:00:00 13:00:00 DAMIAN brooks [facility] 2021-12-29 2021-12-29 Orders Doctor DONNA Negro.2.840.114 [id number] Univers 00:00:00 00:00:00 Only Unassigned, JONATHAN 350.1.13.10 ity of [place] [facility] 4.2.7.2.686 Shawn as [id number] [address] 2021-12-20 2021-12-20 Orders Doctor DONNA 1.2.840.114 [id number] Univers 00:00:00 00:00:00 Only Unassigned, JONATHAN 350.1.13.10 ity of [place] [facility] 4.2.7.2.686 Shawn as [id number] [address] 2021-12-11 2021-12-11 Outpatient R [facility] [id number] Univers 11:00:00 11:51:30 [facility] 2021-12-11 2021-12-11 Office [facility] 1.2.840.114 [id number] Univers 11:00:00 11:15:00 Visit [facility] 350.1.13.10 it y of [place] 4.2.7.2.686 Shawn as MICAH?BLEA [id number] [address] OFFICE [facility] 2021-12-11 2021-12-11 Outpatient R [facility] [id number] Univers 11:00:00 11:00:00 [facility] 2021-12-05 2021-12-05 Telephone [facility] 1.2.840.114 [id number] Univers 00:00:00 00:00:00 [facility] 350.1.13.10 it y of [place] 4.2.7.2.686 Shawn as MICAH?BLEA [id number] [address] OFFICE [facility] 2021-10-14 2021-10-14 Refill [facility] 1.2.840.114 [id number] Univers 00:00:00 00:00:00 [facility] 350.1.13.10 it y of [place] 4.2.7.2.686 Shawn as PROFESSIO [phone] [address] OFFICE [facility] ONE 2021-09-11 2021-09-11 Orders Doctor DONNA 1.2.840.114 [id number] Univers 00:00:00 00:00:00 Only Unassigned, JONATHAN 350.1.13.10 ity of [place] [facility] 4.2.7.2.686 Shawn as [id number] [address] 2021-09-03 2021-09-03 [facility] 1.2.840.114 [id number] Univers 00:00:00 00:00:00 [facility] 350.1.13.10 it y of [place] [facility] 4.2.7.2.686 Shawn as PROFESSIO [phone] Md brandon FRAZIER [address] [place] [address] OFFICE BUILDING ONE 2021-08-30 2021-08-30 Outpatient R [facility]O [facility] [id number] Univers 13:00:00 13:52:57 [facility] 2021-08-30 2021-08-30 [facility] 1.2.840.114 [id number] Univers 13:00:00 13:15:00 Visit [facility] 350.1.13.10 it y of [place] 4.2.7.2.686 Shawn as MICAH?BLEA [id number] Md brandon MILLARD [address] [place] [address] OFFICE BUILDING 2021-08-30 2021-08-30 Outpatient R [facility] [id number] Univers 13:00:00 13:00:00 [facility] 2021-08-28 2021-08-28 Outpatient R [facility] [id number] Univers 15:30:00 15:30:00 [facility] 2021-08-28 2021-08-28 Outpatient Matthew BILLY [facility] [id number] Univers 15:30:00 15:30:00 [facility] 2021-08-28 2021-08-28 Outpatient Matthew BILLY [facility] [id number] Univers 15:30:00 15:30:00 [facility] 2021-08-28 2021-08-28 [facility] [id number] Univers 15:30:00 15:30:00 [facility] 2021-08-26 2021-08-26 [facility] 1.2.840.114 [id number] Univers 00:00:00 00:00:00 Damian HEALTH 350.1.13.10 it y of [place] 4.2.7.2.686 Shawn as MICAH?BLEA [phone] [address] MEDICAL OFFICE [facility] 2021-07-30 2021-07-30 Outpatient R ZIGGY MEJIA [facility] [id number] Univers 13:30:00 13:30:00 ZIGGY MEJIA [facility] 2021-07-30 2021-07-30 Outpatient R ZIGGY MEJIA [facility] [id number] Univers 13:30:00 13:30:00 ZIGGY MEJIA [facility] 2021-07-30 2021-07-30 Outpatient R ZIGGY MEJIA [facility] [id number] Univers 13:30: 13:30: ZIGGY MEJIA [facility] 2021-07-30 2021-07-30 Outpatient R ZIGGY MEJIA [facility] [id number] Univers 13:30:00 13:30:00 ZIGGY MEJIA [facility] 2021-07-18 2021-07-18 Outpatient R EULALIO IZZY [facility] [id number] Univers 10:00:00 10:00:00 [facility] 2021-07-15 2021-07-15 [facility] 1.2.840.114 [id number] Univers 00:00:00 00:00:00 [facility] 350.1.13.10 it y of [place] 4.2.7.2.686 Shawn as MICAH?BLEA [phone] [address] MEDICAL OFFICE [facility] 2021-07-10 2021-07-10 Telephone [facility] 1.2.840.114 [id number] Univers 00:00:00 00:00:00 [facility] HEALTH 350.1.13.10 it y of [place] 4.2.7.2.686 Shawn as MICAH?BLEA [phone] [address] MEDICAL OFFICE [facility] 2021-07-09 2021-07-09 Telephone [facility] 1.2.840.114 [id number] Univers 00:00:00 00:00:00 Damian HEALTH 350.1.13.10 it y of [place] 4.2.7.2.686 Shawn as MICAH?BLEA [phone] [address] OFFICE [facility] 2021-06-03 2021-06-03 [facility] 1.2.840.114 [id number] Univers 00:00:00 00:00:00 Damian Health 350.1.13.10 it y of [place] 4.2.7.2.686 Shawn as Micah?Blea [phone] [address] 2021-06-03 2021-06-03 Telephone [facility] 1.2.840.114 [id number] Univers 00:00:00 00:00:00 Ibrahima Riveroton 350.1.13.10 [place] [facility] [id number] [address] 2021-05-27 2021-05-27 [facility] 1.2.840.114 [id number] Univers 00:00:00 00:00:00 Ibrahima Bragg [facility] 350.1.13.10 ity of [place] 4.2.7.2.686 Shawn as Micah?Blea [phone] [address] 2021-05-24 2021-05-24 [facility] 1.2.464.634 [id number] Univers 13:57:39 23:59:00 Encounter Ibrahima Busby 350.1.13.10 [place] [phone] [address] 2021-05-24 2021-05-24 Outpatient IBRAHIMA HERRERA [facility] [id number] Univers 13:56:37 13:56:37 IBRAHIMA SOMMER itcristela of [facility] 2021-05-24 2021-05-24 Outpatient IBRAHIMA HERRERA [facility] [id number] Univers 13:56:37 13:56:37 IBRAHIMA SOMMER [facility] 2021-05-24 2021-05-24 [facility] Ros [facility] [id number] [facility] 13:56:37 13:56:37 [facility] Ibrahima Busby 350.1.13.10 [place] [phone] [facility] [address] [place] [address] 2021-05-13 2021-05-13 Outpatient R IBRAHIMA SOMMER [facility] [id number] Univers 00:00:00 00:00:00 IBRAHIMA SOMMER [facility] 2021-05-03 2021-05-03 [facility] 1.2.840.114 [id number] [facility] 00:00:00 00:00:00 [facility] 350.1.13.10 it y of [place] 4.2.7.2.686 Shawn as Professio [phone] Md caesarnd carlito 0[address] [place] Office [facility] 2021-05-03 2021-05-03 [facility] 1.2.840.114 [id number] [facility] 00:00:00 00:00:00 [facility] 350.1.13.10 it y of [place] 4.2.7.2.686 Shawn as Professio [phone] [facility] 044 [facility] 2021-04-23 2021-04-23 [facility], Ang - Db [facility] 1.2.840.1 [id number] Univers 13:30:12 13:45:12 Visit Ibrahima Sommer [facility] 350.1.13. 10 ity of [place] 4.2.7.2.686 Shawn as Micah?Blea [phone] Md brandon millard 353 [facility] Office Building 2021-04-23 2021-04-23 Office Ros [facility] 1.2.840.114 [id number] [facility] 12:51:35 13:28:39 Visit [facility] 350.1.13.10 ity of [place] 4.2.7.2.686 Shawn as Micah?Blea [phone] Md brandon millard 092 [facility] Office Building 2021-04-23 2021-04-23 Outpatient IBRAHIMA HERRERA [facility] [id number] Univers 11:20:00 11:20:00 IBRAHIMA SOMMER cristela [facility] 2021-04-16 2021-04-16 Outpatient IBRAHIMA HERRERA [facility] [id number] Univers 10:40:00 10:40:00 IBRAHIMA SOMMER cristela [facility] 2021-03-28 2021-03-28 Outpatient IBRAHIMA HERRERA [facility] [id number] Univers 11:00:00 11:00:00 IBRAHIMA SOMMER [facility] 2021-03-22 2021-03-22 [facility] 1.2.840.114 [id number] [facility] 00:00:00 00:00:00 [facility] Health 350.1.13.10 it y of [place] 4.2.7.2.686 Shawn as Professio [phone] [address] Office [facility] 2021-03-22 2021-03-22 Reflul [facility] 1.2.840.114 [id number] 00:00:00 00:00:00 [facility] Health 350.1.13.10 [place] 4.2.7.2.686 Professio [id number] [place] [address] Office [facility] 2021-03-21 2021-03-21 [facility] 1.2.840.114 [id number] Univers 00:00:00 00:00:00 [facility] Health 350.1.13.10 it y of [place] 4.2.7.2.686 Shawn as Professio [phone] [address] Office [facility] 2021-03-21 2021-03-21 [facility] 1.2.840.114 [id number] 00:00:00 00:00:00 [facility] Health 350.1.13.10 [place] 4.2.7.2.686 Professio [phone] [place] [address] Office Building One 2021-02-26 2021-02-26 [facility] 1.2.944.252 [id number] Univers 16:37:25 23:59:00 Encounter Ibrahima Bragg Praneeth 350.1.13.10 ity of [place] 4.2.7.2.686 [facility] [id number] [place] 682977 [place] 2021-02-26 2021-02-26 [facility] 1.2.840.114 [id number] Univers 16:36:33 16:36:33 Encounter Zana Veliz Praneeth 350.1.13.10 ity of [place] 4.2.7.2.686 [facility] [id number] [place] 682977 [place] 2021-02-26 2021-02-26 [facility] 1.2.097.633 [id number] Univers 16:36:21 16:36:21 Encounter Ibrahima Busby 350.1.13.10 ity of [place] 4.2.7.2.686 [facility] [phone] [place] 682977 [place] 2021-02-26 2021-02-26 Outpatient IBRAHIMA HERRERA [facility] [id number] Univers 15:00:00 15:57:07 IBRAHIMA SOMMER [facility] 2021-02-26 2021-02-26 Outpatient IBRAHIMA HERRERA [facility] [id number] Univers 15:00:00 15:57:07 IBRAHIMA SOMMER [facility] 2021-02-26 2021-02-26 Outpatient IBRAHIMA HERRERA [facility] [id number] Univers 15:00:00 15:57:07 IBRAHIMA SOMMER cristela [facility] 2021-02-26 2021-02-26 Office [facility] 1.2.840.114 [id number] Univers 14:45:21 15:57:07 Visit Ibrahima Busby 350.1.13.10 ity of [place] 4.2.7.2.686 [facility] [phone] [place] 214552 [facility] 2021-02-26 2021-02-26 Office Ros [facility] 1.2.840.114 [id number] 14:45:21 15:57:07 Visit Ibrahima Busby 350.1.13.10 [place] 4.2.7.2.686 Professio [phone] [facility] 2021-02-26 2021-02-26 Orders Doctor DONNA 1.2.840.114 [id number] Univers 00:00:00 00:00:00 Only Unassigned, JONATHAN 350.1.13.10 ity of [place] [facility] 4.2.7.2.686 Shawn as [phone] [address] 2021-02-08 2021-02-08 Office [facility] 1.2.840.114 [id number] 584 [facility] 11:00:38 11:41:35 Visit [facility] 350.1.13.10 it y of [place]art[place] 4.2.7.2.686 Shawn as Professio [phone] [address] 2021-02-08 2021-02-08 Outpatient R [facility] [id number] [facility] 11:00:00 11:00:00 DAMIAN ity of [facility] 2021-02-06 2021-02-06 Telephone [facility] 1.2.840.114 [id number] Univers 00:00:00 00:00:00 [facility] 350.1.13.10 it y of [place] 4.2.7.2.686 Shawn as Professio [phone] [address] 2021-01-15 2021-01-15 Orders Doctor DONNA 1.2.840.114 [id number] Univers 00:00:00 00:00:00 Only Unassigned, JONATHAN 350.1.13.10 ity of [place] [facility] 4.2.7.2.686 Shawn as [phone] [address] 2020-12-27 2020-12-27 Telephone [facility] 1.2.840.114 [id number] Univers 00:00:00 00:00:00 [facility]ian [facility] 350.1.13.10 it y of [place] 4.2.7.2.686 Shawn as Professio [phone] Me dical nal [address] [place] Office Building One 2020-12-13 2020-12-13 Case Radha Hanson 1.2.840.114 [id number] Univers 00:00:00 00:00:00 Management Margie Simmons 350.1.13.10 ity of [place]2.7.2.686 [place] [phone] [facility] 086 [place] 2020-12-11 2020-12-11 Outpatient [facility] [id number] Univers 14:17:31 23:59:00 [facility] 2020-12-11 2020-12-11 [facility] [id number] Univers 14:17:31 23:59:00 [facility] 2020-12-11 2020-12-11 Hospital [facility] 1.2.840.114 [id number] Univers 14:17:31 23:59:00 Encounter [facility] 350.1.13.10 ity of Surgical 4.2.7.2.686 Shawn as Specialti [phone] Me dical es 809 [facility] 2020-12-11 2020-12-11 Office [facility] 1.2.840.114 [id number] Univers 14:05:22 14:20:22 Visit [facility] 350.1.13.10 it y of Surgical 4.2.7.2.686 Shawn as Specialti [phone] Me dical es 198 [facility] 2020-12-05 2020-12-05 Outpatient Matthew CASTANEDA [facility] [id number] Univers 13:15:00 13:15:00 [facility] 2020-12-05 2020-12-05 Telephone Deborah [facility] 1.2.840.114 [id number] Univers 00:00:00 00:00:00 [facility] Klevosti 350.1.13.10 it y of Surgical 4.2.7.2.686 Shawn as Specialti [phone] Me dical es 198 [facility] 2020-11-09 2020-11-09 Laboratory Lab, Adc Fam Pob I [facility] 1.2. 840.114 [id number] Univers 15:05:03 15:25:03 Only Claudio Carrasquillo 350.1.13.10 ity of [place] 4.2.7.2.686 Shawn as Professio [phone] [address] Office [facility] 2020-11-09 2020-11-09 Outpatient R LION [facility] [id number] Univers 15:00:00 15:19:52 CLAUDIO ity of [facility] 2020-11-09 2020-11-09 Office [facility] 1.2.840.114 [id number] Univers 14:17:20 14:32:20 Visit [facility] 350.1.13.10 it y of [place] 4.2.7.2.686 Shawn as Professio [phone] [address] Office [facility] 2020-11-05 2020-11-05 [facility] 1.2.840.114 [id number] Univers 00:00:00 00:00:00 [facility] 350.1.13.10 it y of [place] 4.2.7.2.686 Shawn as Professio [phone] [address] Office [facility] 2020-09-18 2020-09-18 [facility] 1.2.840.114 [id number] Univers 00:00:00 00:00:00 [facility] 350.1.13.10 it y of [place] 4.2.7.2.686 Shawn as Professio [id number] [facility] nal [address] [place] [address] Office [facility] 2020-08-17 2020-08-17 Telephone [facility] 1.2.840.114 [id number] Univers 00:00:00 00:00:00 [facility] 350.1.13.10 it y of [place] 4.2.7.2.686 Shawn as Professio [phone] [address] Office Building One 2020-08-15 2020-08-15 Office [facility] 1.2.840.114 [id number] Univers 15:29:43 16:05:45 Visit Damian [facility] 350.1.13.10 it y of [place] 4.2.7.2.686 Shawn as Professio [phone] Md dical nal 044 [place] Office [facility] 2020-08-15 2020-08-15 Out[facility] [id number] Univers 15:30:00 15:30:00 DAMIAN [facility] 2020-08-15 2020-08-15 Telephone [facility] 1.2.840.114 [id number] Univers 00:00:00 00:00:00 [facility] 350.1.13.10 it y of [place] 4.2.7.2.686 Shawn as Professio [phone] [address] 2020-07-20 2020-07-20 [facility] [id number] Univers 10:00:00 10:00:00 [facility] 2020-07-18 2020-07-18 Outpatient [facility] [id number] Univers 14:15:00 14:15:00 [facility] 2020-07-04 2020-07-04 Outpatient [facility] [id number] Univers 09:30:00 09:30:00 DAMIAN [facility] 2020-06-20 2020-06-20 Hearing And Speech Assistant Lab, [facility] Fam Pob I [facility] 1.2. 840.114 [id number] Univers 11:09:56 11:18:42 Visit Damian Billy arti [facility] 350.1.13 .10 ity of [place] 4.2.7.2.686 Shawn as Professio [phone] Md dical nal 044 [place] Office [facility] 2020-06-20 2020-06-20 Office [facility] 1.2.840.114 [id number] Univers 10:10:47 10:40:47 Visit Damian [facility] 350.1.13.10 it y of [place] 4.2.7.2.686 Shawn as Professio [phone] Md dical nal 044 [place] Office [facility] 2020-06-20 2020-06-20 Outpatient Matthew BILLY, [facility] [id number] Univers 10:15:00 10:15:00 DAMIAN brooks [facility] 2020-05-21 2020-05-21 (TEL) STLMLC STLMLC [id number] Co mmon 00:00:00 00:00:00 [facility] 2020-05-21 2020-05-21 NO CHARGE STLMLC STLMLC [id number] Common 00:00:00 00:00:00 [facility] 2018-11-08 2018-11-08 Outpatient [facility] [id number] Common 11:45:00 11:45:00 [facility] Wag Moblie [facility] Results Test Description Test Time Test Comments Results Result Comments Source MAGNESIUM 2022-05-03 17:09:05 Test Item Value Reference Range Interpretation Comme nts MAGNESIUM (test code = 4664049616) 1.3 mg/dL 1.7-2.4 L Lab Interpretation (test code = 24922-6) Abnormal [facility]OL[facility] PANEL (NA, K, CL, CO2, GLUCOSE, BUN, CREATININE, CA)2022-05-03 17:08:44 Test Item Value Reference Range Interpretation Comments NA (test code = 138 mmol/L 135-145 9833572481) K (test code = 3.2 mmol/L 3.5-5 L 8394448432) CL (test code = 104 mmol/L 98-108 3416809129) CO2 TOTAL (test code = 31 mmol/L 23-31 6403621090) AGAP (test code = 2-16 5710720760) BUN (test code = 9 mg/dL 7-23 2366123727) GLUCOSE (test code = 113 mg/dL 70-110 H 7120263783) CREATININE (test code = 0.39 mg/dL 0.5-1.04 L 7773521645) CALCIUM (test code = 7.2 mg/dL 8.6-10.6 L 0979565009) eGFR (test code = mL/min/1.73m2 2369793095) THI (test code = THI) Association of [...] tests). Lab Interpretation Abnormal (test code = 24838-7) [facility] Arterial Blood Gas.2022-05-01 00:00:20 Test Item Value Reference Range Interpretation Comments PH (test code = 2) 7.35-7.45 PCO2 (test code = See_Comment H [Automate d message] 6757221825) The system [employer] generated this result transmitted ref erence range: 35 - 45 mmHg. The reference r radha was not used to interpret this result as normal/abnor mal. PO2 (test code = See_Comment Wear [Automated message] 7595497617) The system [employer] generated this result transmitted ref erence range: 80 - 100 mmHg. The reference r radha was not used to interpret this result as normal/abnor mal. HCO3 (test code = See_Comment H [Automate d message] 2142309227) The system [employer] generated this result transmitted ref erence range: 22 - 26 mEq/L. The reference r radha was not used to interpret this result as normal/abnor mal. BE (test code = See_Comment H [Automated message] 0578991636) The system [employer] generated this result transmitted ref erence range: -3.0 - 3 .0 mEq/L. The refe rence range was not u sed to interpret this result as normal/abnor mal. Lab Interpretation (test Abnormal code = 12511-1) [facility] Arterial Blood Gas.2022-04-30 15:53:27 Test Item Value Reference Range Interpretation Comments PH (test code = 2) 7.35-7.45 PCO2 (test code = See_Comment H [Automate d message] 9607386803) The system [employer] generated this result transmitted ref erence range: 35 - 45 mmHg. The reference r radha was not used to interpret this result as normal/abnor mal. PO2 (test code = See_Comment L [Automated message] 2377833180) The system [employer] generated this result transmitted ref erence range: 80 - 100 mmHg. The reference r radha was not used to interpret this result as normal/abnor mal. HCO3 (test code = See_Comment H [Automate d message] 9848064053) The system [employer] generated this result transmitted ref erence range: 22 - 26 mEq/L. The reference r radha was not used to interpret this result as normal/abnor mal. BE (test code = See_Comment H [Automated message] 2653182616) The system [employer] generated this result transmitted ref erence range: -3.0 - 3 .0 mEq/L. The refe rence range was not u sed to interpret this result as normal/abnor mal. Lab Interpretation (test Abnormal code = 99606-1) [facility] CenterFINE NEEDLE ASPIRATION BY [id number] 16:25:00Medical Cytology Report Case: [id number] Authorizing Provider: Holly Mckeon Collected: 12/28/2018 0903 MD Delores Ordering Location: [facility] Endoscopy Received: 12/28/2018 1103 Services Pathologist: Salvador Begum MD Specimen: Pancreas PANCREAS CYST FNA BY CLINICIAN (CYTOSPINS AND CELL BLOCK OF ASPIRATE): - NEGATIVE FOR MALIGNANCY - The mucin stain is negative Signing PathologistDirect Phone Line: [phone] signed by Salvador Begum MD on 12/29/2018 at 4:25 PMThe mucin stain is negative and the control slide shows positive staining as expected.85818, 55215, 82883Hrfy cysts in the pancreas, largest measuring 2.0 cmPANCREAS CYST FNA27 mls in cytorich red; 4 cytospins, 1 mucin stain, cell blockCollected: [id number]: [id number] interpretation of this case included the use of immunohistochemistry or special stains. MUCINImmunohistochemistry technical te sting was performed at [facility], Pathology Laboratory where it was developedand its [...] qualified to perform high complexity clinical laboratory testing.[facility], Department of Pathology, [address] [place] [address], [facility], [facility], [address] [place] [address], [facility], Department of [facility]ology, [address] [place] [address], NWNGXT [id number] 10:28:00Surgical Pathology Report Case: [id number] Authorizing Provider: Holly Mckeon Collected: 12/28/2018 0924 MD Delores Ordering Location[facility] Endoscopy Received: 12/28/2018 1253 Services Pathologist: Kurtis Luna MD Specimen: Ampulla PART A AMPULLARY BIOPSY:PARTIALLY DENUDED NON- NEOPLASTIC SMALL INTESTINAL MUCOSA WITHOUT SIGNIFICANT HISTOPATHOLOGIC ALTERATION.NEGATIVE FOR DYSPLASIA OR INVASIVE CARCINOMA. Signing Pathologist Direct Phone Line: [phone] signed by Kurtis Luna MD on 12/29/2018 at 10:28 [id number] pancreatic lesionampullaThe container is labeled "ampulla" and consists of a single piece of leung-white tissue measuring 2 x 1 x 1 mmand a single piece of feathery white tissue measuring approximately the same dimension submitted entirely in cassette A. TW/bcPERFORMEDAMYLASE, BODY [id number] 13:26:00 Test Item Value Reference Range Interpretation Comments AMYLASE FLUID (BEAKER) (test code = > U/L 350) Absence of reference range indicates that normals have not been defined.Assay performance has not been validated for this type of specimen.FINE NEEDLE ASPIRATE (FNA) [id number] 13:00:00 Test Item Value Reference Range Interpretation Comments CYTOLOGY RESULT POINTER See Separate Report (BEAKER) (test code = 2629)
[2022-08-22] MEDS ORDERED: LEVALBUTEROL 1.25 MG/3 ML NEB ONE (12:17)
[2022-08-22] MEDS ORDERED: METHYLPREDNISOLONE 125 MG INJ ONE (12:17)
[2022-08-22 13:01] LABS: Absolute Lymphocytes (CBC) 0.2 K/uL (0.7-4.9); MCV 88.2 fL (80-100); MPV 8.7 fL (7.6-11.3)
[2022-08-22 13:08] LABS: Protime INR 1.2
[2022-08-22 13:12] LABS: SARS-COV-2 RT PCR NEGATIVE (NEGATIVE)
--- NOTE | 2022-08-22 13:14 | RAD REPORT ---
EXAM DESCRIPTION: RAD - Chest Single View - 08/22/2022 12:59 pm CLINICAL HISTORY: SOB COMPARISON: Portable 07/30/2022, portable 07/25/2022 TECHNIQUE: AP portable chest image was obtained 08/22/2022 12:59 pm . FINDINGS: No new mass or consolidations seen. Lung parenchymal pattern is not clearly different from the 2 examinations. Lung base assessment is more under penetrated technique. Mild infiltrate or sagar a could be masked. No new hilar mass or lymphadenopathy. Heart and vasculature are normal. No measura ble pleural effusion and no pneumothorax. No acute bony abnormality seen. No acute aortic findings ching spected. IMPRESSION: No new mass or consolidation confirmed. Lung base assessment is more limited and mild infiltrates could be masked.
[2022-08-22 13:20] LABS: Troponin High Sensitivity 33.9 pg/mL (<58.9)
[2022-08-22 13:21] LABS: Potassium 4.9 mmol/L (3.5-5.1)
--- NOTE | 2022-08-22 14:03 | ER ---
Nurse's Notes [facility] Name: Mila Whiting Age: 66 yrs Sex: Female : 1955 Arrival Date: 08/22/2022 Time: 12:01 Bed 2 Private MD: Diagnosis: COPD/ Chronic obstructive pulmonary disease with (acute) exacerbation;Hypoxia Presentation: 08/22 11:58 Chief complaint: EMS states: toned out for difficulty breathing; upon arrival pt was vg1 sitting on BIPAP tubing, O2 76%, denies CP or weakness. Pt placed on non rebreather, O2 at 100%. 11:58 Coronavirus screen: Vaccine status: Patient reports receiving the 2nd dose of the covid vg1 vaccine. Client denies travel out of the [place] in the last 14 days. Ebola Screen: Patient negative for fever greater than or equal to 101.5 degrees Fahrenheit, and additional compatible Ebola Virus Disease symptoms. Initial Sepsis Screen: Does the patient meet any 2 criteria? HR > 90 bpm. Does the patient have a suspected source of infection? No. Patient's initial sepsis screen is negative. Risk Assessment: Do you want to hurt yourself or someone else? Patient reports no desire to harm self or others. Onset of symptoms was August 22, 2022. 11:58 Method Of Arrival: EMS: [facility] 1 11:58 Acuity: CRISTY 2 vg1 Triage Assessment: 11:58 General: Appears in no apparent distress. uncomfortable, Behavior is calm, cooperative. vg1 Pain: Denies pain. EENT: No signs and/or symptoms were reported regarding the EENT system. Oral mucosa is dry. Neuro: Level of Consciousness is awake, alert, obeys commands, Oriented to person, place, time, situation. Cardiovascular: Patient's skin is warm and dry. Respiratory: Airway is patent Respiratory effort is even, unlabored, Breath sounds are diminished bilaterally. Parent/caregiver reports the patient having difficulty breathing. GI: No signs and/or symptoms were reported involving the gastrointestinal system. : No signs and/or symptoms were reported regarding the genitourinary system. Derm: Skin is pink, warm \T\ dry. Musculoskeletal: Circulation, motion, and sensation intact. Historical: - Allergies: 12:04 liquid magnesium; ss 12:04 Stadol; ss - PMHx: 12:04 acid reflux; Anxiety; COPD; Home O2 3L NC; Hypertension; spinal stenosis; ss - PSHx: 12:04 Cholecystectomy; hernia repair; right ankle sx; ss - Immunization history:: Client reports receiving the 2nd dose of the Covid vaccine. - Social history:: Smoking status: Patient denies any tobacco usage or history of. Screenin:19 [facility] ED Fall Risk Assessment (Adult) History of falling in the last 3 months, vg1 including since admission No falls in past 3 months (0 pts) Confusion or Disorientation No (0 pts) Intoxicated or Sedated No (0 pts) Impaired Gait No (0 pts) Mobility Assist Device Used Yes (1 pt). Abuse screen: Denies threats or abuse. Nutritional screening: No deficits noted. Tuberculosis screening: No symptoms or risk factors identified. Assessment: 11:58 Reassessment: SEE TRIAGE. vg1 12:18 Reassessment: RT at bedside; placing pt on BIPAP. vg1 13:00 Reassessment: LAB at bedside assisting with blood cultures. vg1 13:05 Reassessment: Patient appears in no apparent distress at this time. No changes from vg1 previously documented assessment. Patient and/or family updated on plan of care and expected duration. Pain level reassessed. Patient is alert, oriented x 3, equal unlabored respirations, skin warm/dry/pink. 13:22 Reassessment: LAB stated was able to get one set of cultures. vg1 14:00 Reassessment: Patient appears in no apparent distress at this time. No changes from vg1 previously documented assessment. Patient and/or family updated on plan of care and expected duration. Pain level reassessed. Patient is alert, oriented x 3, equal unlabored respirations, skin warm/dry/pink. 14:59 Reassessment: Patient appears in no apparent distress at this time. No changes from ld1 previously documented assessment. Patient and/or family updated on plan of care and expected duration. Pain level reassessed. Patient is alert, oriented x 3, equal unlabored respirations, skin warm/dry/pink. Vital Signs: 11:58 BP 130 / 77; Pulse 118; Resp 19; Temp 98.2(O); Pulse Ox 100% on Non-rebreather mask; vg1 Weight 62.14 kg; Pain 0/10; 13:06 BP 114 / 87; Pulse 120; Resp 24; Pulse Ox 100% on BiPAP; vg1 14:00 BP 108 / 71; Pulse 108; Resp 18; Pulse Ox 97% on BiPAP; vg1 14:59 BP 109 / 66; Pulse 107; Resp 18; Pulse Ox 95% on BiPAP; ld1 ED Course: 11:58 Arm band placed on. EKG completed in triage. Results shown to MD. vg1 12:01 Patient arrived in ED. eb 12:02 Satish Maradiaga PA is PHCP. jmm 12:02 Anjum Ramos DO is Attending Physician. jmm 12:10 Adrianne Arriola, CARLOS is Primary Nurse. vg1 12:15 Triage completed. vg1 12:19 Patient has correct armband on for positive identification. Placed in gown. Bed in low vg1 position. Call light in reach. Side rails up X2. Client placed on continuous cardiac and pulse oximetry monitoring. NIBP monitoring applied. 12:38 COVID-19/FLU A+B Sent. ld1 12:52 Inserted saline lock: 20 gauge in right upper arm, using aseptic technique. ,using vg1 aseptic technique. COMPLETED BY YOHAN GONZALEZ. 12:55 Lactate w/ 2H reflex if indic. Sent. ld1 13:00 XRAY Chest (1 view) In Process Unspecified. EDMS 14:02 Lakhwinder Ackerman MD is Hospitalizing Provider. [facility] 16:45 No provider procedures requiring assistance completed. Patient admitted, IV remains in ap3 place. Administered Medications: 12:21 Drug: Xopenex (levalbuterol) (3) 1.25 mg Route: Inhalation; vg1 12:55 Drug: SOLU-Medrol (methylPrednisoLONE) 125 mg Route: IVP; Site: right upper arm; ld1 Medication: 12:19 VIS not applicable for this client. vg1 Outcome: 14:03 Decision to Hospitalize by Provider. jmm 16:45 Admitted to Med/surg accompanied by tech, via stretcher, room 209, with oxygen, with ap3 chart. 16:45 Condition: good 16:45 Instructed on the need for admit. 16:45 Patient left the ED. ap3 Signatures: Dispatcher [employer] EDMS Satish Maradiaga PA PA jmm Smirch, Shelby, RN RN Beverley Vasquez RN RN ap3 Lalita Dahl Victoria, RN RN vg1 Jodie Schulte RN RN ld1 Corrections: (The following items were deleted from the chart) 12:19 12:18 Reassessment: RT at bedside vg1 vg1 13:09 13:06 BP 114 / 87; Pulse 128bpm; Resp 24bpm; Pulse Ox 100% BiPAP; vg1 vg1
--- NOTE | 2022-08-22 14:03 | EDPHYS ---
Physician Documentation [facility] Name: Mila Whiting Age: 66 yrs Sex: Female : 1955 Arrival Date: 08/22/2022 Time: 12:01 Bed 2 Private MD: ED Physician Anjum Ramos HPI: 08/22 12:07 This 66 yrs old Black Female presents to ER via EMS with complaints of Shortness Of jmm Breath, Breathing Difficulty. 12:07 The patient has shortness of breath at rest. Onset: The symptoms/episode began/occurred jmm gradually, today. Duration: The symptoms are continuous. This is a 66-year-old female with history of COPD the presents emerged department with complaints of progressively worsening shortness of breath today. Patient was found by EMS with oxygen saturation around 70%. They found that her oxygen tubing was compressed. Patient denies chest pain. . Historical: - Allergies: 12:04 liquid magnesium; ss 12:04 Stadol; ss - PMHx: 12:04 acid reflux; Anxiety; COPD; Home O2 3L NC; Hypertension; spinal stenosis; ss - PSHx: 12:04 Cholecystectomy; hernia repair; right ankle sx; ss - Immunization history:: Client reports receiving the 2nd dose of the Covid vaccine. - Social history:: Smoking status: Patient denies any tobacco usage or history of. ROS: 12:07 Constitutional: Negative for fever, chills, and weight loss, Cardiovascular: Negative jmm for chest pain, palpitations, and edema. 12:07 Respiratory: Positive for shortness of breath. 12:07 All other systems are negative. Exam: 12:07 Constitutional: This is a well developed, well nourished patient who is awake, alert, jmm and in no acute distress. Head/Face: atraumatic. Eyes: EOMI, no conjunctival erythema appreciated ENT: Moist Mucus Membranes Neck: Trachea midline, Supple Chest/axilla: Normal chest wall appearance and motion. Cardiovascular: Regular rate and rhythm. No edema appreciated 12:07 Abdomen/GI: Non distended Back: Normal ROM Skin: General appearance color normal MS/ Extremity: Moves all extremities, no obvious deformities appreciated, no edema noted to the lower extremities Neuro: Awake and alert Psych: Behavior is normal, Mood is normal, Patient is cooperative and pleasant 12:07 Respiratory: moderate respiratory distress is noted, Respirations: labored breathing, that is moderate, Breath sounds: wheezing: is scattered. Vital Signs: 11:58 BP 130 / 77; Pulse 118; Resp 19; Temp 98.2(O); Pulse Ox 100% on Non-rebreather mask; vg1 Weight 62.14 kg; Pain 0/10; 13:06 BP 114 / 87; Pulse 120; Resp 24; Pulse Ox 100% on BiPAP; vg1 14:00 BP 108 / 71; Pulse 108; Resp 18; Pulse Ox 97% on BiPAP; vg1 14:59 BP 109 / 66; Pulse 107; Resp 18; Pulse Ox 95% on BiPAP; ld1 MDM: 12:07 Patient medically screened. [facility] 14:02 Data reviewed: vital signs, nurses notes. Counseling: I had a detailed discussion with steffanie the patient and/or guardian regarding: the historical points, exam findings, and any diagnostic results supporting the discharge/admit diagnosis, lab results, radiology results, the need for further work-up and treatment in the hospital. 08/22 12:08 Order name: Basic Metabolic Panel; Complete Time: 13:31 [facility] 08/22 12:08 Order name: CBC with Diff [facility] 08/22 12:08 Order name: NT PRO-BNP; Complete Time: 13:31 [facility] 08/22 12:08 Order name: PT-INR; Complete Time: 13:10 [facility] 08/22 12:08 Order name: Troponin HS; Complete Time: 13:31 [facility] 08/22 12:08 Order name: COVID-19/FLU A+B; Complete Time: 13:19 [facility] 08/22 12:08 Order name: XRAY Chest (1 view); Complete Time: 13:19 [facility] 08/22 12:08 Order name: EKG; Complete Time: 12:09 [facility] 08/22 12:08 Order name: Cardiac monitoring; Complete Time: 12:14 [facility] 08/22 12:08 Order name: EKG - Nurse/Tech; Complete Time: 12:14 [facility] 08/22 12:09 Order name: Lactate w/ 2H reflex if indic.; Complete Time: 13:19 [facility] 08/22 12:09 Order name: Blood Culture Adult (2) [facility] 08/22 12:08 Order name: IV Saline Lock; Complete Time: 12:55 [facility] 08/22 12:08 Order name: Labs collected and sent; Complete Time: 12:56 [facility] 08/22 12:08 Order name: O2 Per Protocol; Complete Time: 12:14 [facility] 08/22 12:08 Order name: O2 Sat Monitoring; Complete Time: 12:14 [facility] Administered Medications: 12:21 Drug: Xopenex (levalbuterol) (3) 1.25 mg Route: Inhalation; vg1 12:55 Drug: SOLU-Medrol (methylPrednisoLONE) 125 mg Route: IVP; Site: right upper arm; ld1 Disposition: 18:02 Co-signature as Attending Physician, Anjum Ramos DO I was immediately available on-site ms3 in the Emergency Department for consultation in the care of the patient. Disposition Summary: 08/22/22 14:03 Hospitalization Ordered Hospitalization Status: Inpatient Admission [facility] Provider: Lakhwinder Ackerman [facility] Condition: Stable [facility] Problem: an acute exacerbation jm Symptoms: have improved [facility] Bed/Room Type: Standard [facility] Room Assignment: 209(08/22/22 15:44) eb Diagnosis - COPD/ Chronic obstructive pulmonary disease with (acute) exacerbation jmm - Hypoxia [facility] Forms: - Medication Reconciliation Form [facility] - SBAR form [facility] Signatures: Dispatcher [employer] Satish Maddox PA PA m Lary Horne RN RN ss Botello, Elizabeth eb Garcia, Victoria, RN RN vg1 Anjum Ramos DO DO ms3 Jodie Schulte RN RN ld1 Corrections: (The following items were deleted from the chart) 15:44 14:03 [facility]
[2022-08-22] MEDS ORDERED: ACETAMINOPHEN 500 MG TAB PO PRN (15:46)
[2022-08-22] MEDS ORDERED: ONDANSETRON 4 MG/2 ML VIAL IV PRN (15:46)
--- NOTE | 2022-08-22 16:23 | P.HP ---
Certification for Inpatient Patient admitted to: Inpatient With expected LOS: >2 Midnights Patient will require the following post-hospital care: None Practitioner: I am a practitioner with admitting privileges, knowledge of patient current condition, hospital course, and medical plan of care. Services: Services provided to patient in accordance with Admission requirements found in Title 42 Section 412.3 of the Code of Federal Regulations <Daniel Schwartz - Last Filed: 08/22/22 19:03> Patient History Date of Service: 08/22/22 Reason for admission: Shortness of breath/COPD exacerbation History of Present Illness: This is a 66 year old female with PMH of anxiety, end stage COPD on 3 liters of home oxygen, hypertension and spinal stenosis. Patient presented to the emergency department via EMS. Per EMS, patient had difficulty breathing. Patient was placed on a BIPAP. In the ER, patients oxygen saturation was 76%. Patient was placed on a non-rebreather and her oxygen saturation improved to 100% . No reported chest pain or weakness. She was resting comfortably in the ER on BIPAP at 40 % and rate of 16 with oxygen saturation of 96 %. She is alert and nods appropriately but unable to answer questions while she's on the BIPAP. She was treated with a nebulizer treatment and steroids while in the ED. CXR shows no new mass or consolidation confirmed. Lung base assessment is more limited and mild infiltrates could be masked. ABG: pH 7.29, pCO2 81.5, pO2 68.7, HCO3 38.3. She was recently discharged on 08/04/22 for hypercapnic respiratory failure and chest pain. She was instructed to follow up with Dr. Smith Home medications list reviewed: Yes - Past Medical/Surgical History Diabetic: No -: Hypertension -: Hepatitis C-treated -: COPD on Home Oxygen -: Anxiety -: Hernia -: Spinal Stenosis -: GERD -: HX OF UTI -: Cholecystectomy -: Right ankle surgery -: Hernia Repair Psychosocial/ Personal History: Lives at home alone - Family History Mother -: Hypertension, Diabetes Father -: Hypertension, Diabetes - Social History Alcohol use: No CD- Drugs: No Caffeine use: Yes <Daniel Schwartz - Last Filed: 08/22/22 19:03> Date of Service: 08/22/22 <Lakhwinder Ackerman - Last Filed: 08/22/22 20:36> Allergies butorphanol tartrate [From Stadol] Allergy (Severe, Verified 07/26/22 01:53) seizures magnesium sulfate Allergy (Severe, Verified 07/26/22 01:53) Anaphylaxis Home Medications: Amlodipine [Norvasc*] 1 tab PO DAILY 07/26/22 Budesonide/Formoterol Fumarate [Symbicort 160-4.5 Mcg Inhaler] 2 puff IH BID 07/26/22 Famotidine [Pepcid] 1 tab PO DAILY 07/26/22 Fluticasone [Flonase 50MCG Nasal Stevenson*] 1 spray MELANIA DAILY 07/26/22 Gabapentin 1 cap PO TID 07/26/22 Pantoprazole Sodium [Protonix] 1 tab PO DAILY 07/26/22 Arformoterol Tartrate [Brovana] 15 mcg NEB BIDRESP #60 vial.neb 07/29/22 Hydrocodone 7.5/APAP 325 [[place] 7.5/325 mg*] 1 tab PO Q6H PRN #30 tab 07/29/22 Ipratropium Neb [Atrovent*] 0.5 mg IH [id number] #60 vial 07/29/22 Levalbuterol HCl [Xopenex] 1.25 mg IH Q8HP PRN #60 vial 07/29/22 acetaZOLAMIDE [Diamox*] 250 mg PO BID #60 tab 07/29/22 predniSONE [Deltasone] 20 mg PO BID #11 tab 07/29/22 Review of Systems is unable to be obtained (Patient on BIPAP) <Daniel Schwartz - Last Filed: 08/22/22 19:03> Physical Examination - Vital Signs Temperature: 98.2 F Blood Pressure: 108/71 Pulse: 109 Respirations: 20 Pulse Ox (%): 96 - Physical Exam General: Alert HEENT: Atraumatic, Normocephalic Neck: Supple, 2+ carotid pulse no bruit Respiratory: Rhonchi/gurgles Cardiovascular: No edema, Normal pulses Capillary refill: <2 Seconds Gastrointestinal: Normal bowel sounds, Hypoactive Musculoskeletal: No clubbing, No swelling Integumentary: No rashes, No breakdown Neurological: Other (nods appropriately ) Lymphatics: No axilla or inguinal lymphadenopathy - Studies Laboratory Data (last 24 hrs) 08/22/22 12:52: PT 13.2 H, INR 1.20 08/22/22 12:52: WBC 10.20, Hgb 11.3 L, Hct 37.0, Plt Count 206 08/22/22 12:52: Sodium 136, Potassium 4.9, BUN 6 L, Creatinine 0.53 L, Glucose 189 H <Daniel Schwartz - Last Filed: 08/22/22 19:03> - Studies Laboratory Data (last 24 hrs) 08/22/22 12:52: PT 13.2 H, INR 1.20 08/22/22 12:52: WBC 10.20, Hgb 11.3 L, Hct 37.0, Plt Count 206 08/22/22 12:52: Sodium 136, Potassium 4.9, BUN 6 L, Creatinine 0.53 L, Glucose 189 H <Lakhwinder Ackerman - Last Filed: 08/22/22 20:36> Assessment and Plan - Plan Acute on Chronic Hypercapnic Hypoxemic Respiratory Failure 2/2 COPD Exacebation -CXR- No new mass or consolidation confirmed. Lung base assessment is more limited and mild infiltrates could be masked -Continue nebulizer treatments, steroids -Continue with BIPAP/oxygen therapy as needed -Pulmonary consulted -ABG: pH 7.29, pCO2 81.5, pO2 68.7, HCO3 38.3 -Encourage I/S SIRS Criteria- Tachycardia/Tachynea -Likely secondary to COPD exacerbation- No source of infection HTN- Continue home medications GERD- Continue Protonix DVT PPX- SCDs Discharge Plan: Home Plan to discharge in: Greater than 2 days - Advance Directives Does patient have a Living Will: Yes Does patient have a Durable POA for Healthcare: No - Code Status/Comfort Care Code Status Assessed: Yes Code Status: Full Code <Daniel Schwartz - Last Filed: 08/22/22 19:03> Physician Review: Patient Assessed, Agree with Above Assessment and Plan <Lakhwinder Ackerman - Last Filed: 08/22/22 20:36>
[2022-08-22 17:04] LABS: Arterial Blood Carboxyhemoglob 1.7 % (0-1.5); Blood Gas Oxyhemoglobin 91.5 % (94-97); Blood O2 Saturation 94.1 % (92-98.5)
[2022-08-22] MEDS: METHYLPREDNISOLONE 40 MG INJ IV SCH (17:14)
[2022-08-22 18:17] VITALS: BMI 25.1
[2022-08-22] MEDS ORDERED: guaiFENesin 100 MG/5 ML UCUP PO PRN (18:50)
[2022-08-22 19:32] LABS: Platelet Estimate ADEQ; White Blood Cell Scan OK (OK)
[2022-08-22 19:33] LABS: Blood Morphology Comment NOT SEEN (NOT SEEN)
[2022-08-22] MEDS: IPRATROPIUM BROM 0.5MG/2.5ML NEB SCH ×2 (20:00→21:45)
[2022-08-22] MEDS: ALBUTEROL 2.5 MG/3 ML NEB SOL NEB SCH ×2 (20:00→21:45)
[2022-08-22] MEDS: BENZONATATE 100 MG CAP PO PRN (20:26)
[2022-08-22] MEDS: MELATONIN 5 MG TABLET PO PRN (22:10)
[2022-08-23] MEDS: METHYLPREDNISOLONE 40 MG INJ IV SCH ×2 (01:00→07:58)
[2022-08-23] MEDS: IPRATROPIUM BROM 0.5MG/2.5ML NEB SCH ×2 (01:40→08:20)
[2022-08-23] MEDS: ALBUTEROL 2.5 MG/3 ML NEB SOL NEB SCH ×2 (01:40→08:20)
[2022-08-23 08:06] LABS: Potassium 4.4 mmol/L (3.5-5.1)
[2022-08-23] MEDS ORDERED: INFLUENZA VACCINE (for 6+ mo) 0.5 ML DOSE IMVAC ONE (10:00)
[2022-08-23] MEDS: GABAPENTIN 300 MG CAP PO SCH ×2 (10:21→20:45)
[2022-08-23] MEDS: acetaZOLAMIDE 250 MG TAB PO SCH (10:21)
[2022-08-23] MEDS: HYDROCODONE/APAP 7.5/325 MG TAB PO PRN ×2 (10:21→20:49)
--- NOTE | 2022-08-23 12:16 | P.CNS ---
Date of Consult: 08/23/22 Reason for Consult: COPD exacerbation Chief Complaint: Shortness of breath/COPD exacerbation History of Present Illness: Patient is 66 years of age well-known to me history of terminal COPD recurrent frequent exacerbations and was apparently discharged from an LTAC facility went home unable to access her oxygen or locked the door and it appeared in the hospital she is doing much better her pain from her last visit has now resolved feeling weak Allergies butorphanol tartrate [From Stadol] Allergy (Severe, Verified 07/26/22 01:53) seizures magnesium sulfate Allergy (Severe, Verified 07/26/22 01:53) Anaphylaxis Home Medications: Amlodipine [Norvasc*] 1 tab PO DAILY 07/26/22 Budesonide/Formoterol Fumarate [Symbicort 160-4.5 Mcg Inhaler] 2 puff IH BID 07/26/22 Famotidine [Pepcid] 1 tab PO DAILY 07/26/22 Fluticasone [Flonase 50MCG Nasal [place]*] 1 spray MELANIA DAILY 07/26/22 Gabapentin 1 cap PO BID 07/26/22 Pantoprazole Sodium [Protonix] 1 tab PO DAILY 07/26/22 Hydrocodone 7.5/APAP 325 [[place] 7.5/325 mg*] 1 tab PO Q6H PRN #30 tab 07/29/22 Ipratropium Neb [Atrovent*] 0.5 mg IH [id number] #60 vial 07/29/22 Levalbuterol HCl [Xopenex] 1.25 mg IH Q8HP PRN #60 vial 07/29/22 acetaZOLAMIDE [Diamox*] 250 mg PO DAILY 08/23/22 predniSONE [Deltasone] 20 mg PO DAILY 08/23/22 - Past Medical/Surgical History Diabetic: No -: Hypertension -: Hepatitis C-treated -: COPD on Home Oxygen -: Anxiety -: Hernia -: Spinal Stenosis -: GERD -: HX OF UTI -: Cholecystectomy -: Right ankle surgery -: Hernia Repair Psychosocial/ Personal History: Lives at home alone - Family History Mother Medical History: Hypertension, Diabetes Father Medical History: Hypertension, Diabetes - Social History Smoking Status: Unknown if ever smoked Alcohol use: No CD- Drugs: No Caffeine use: Yes Review of Systems 10-point ROS is otherwise unremarkable General: Weakness Respiratory: Shortness of Breath Physical Examination Temp Pulse Resp BP Pulse Ox 98.7 F 113 H 16 123/56 L 97 08/23/22 12:00 08/23/22 12:00 08/23/22 12:00 08/23/22 12:00 08/23/22 12:00 General: Alert, In no apparent distress, Oriented x3, Moderate distress Respiratory: Clear to auscultation bilaterally, Diminished, Friction rub Cardiovascular: Regular rate/rhythm, Normal S1 S2 Laboratory Data (last 24 hrs) 08/22/22 12:52: PT 13.2 H, INR 1.20 08/22/22 12:52: WBC 10.20, Hgb 11.3 L, Hct 37.0, Plt Count 206 08/22/22 12:52: Sodium 136, Potassium 4.9, BUN 6 L, Creatinine 0.53 L, Glucose 189 H - Problems (1) Chronic respiratory failure Current Visit: Yes Status: Acute Plan: Patient has chronic terminal COPD with chronic hypercapnia she is currently at her baseline patient did not have access to oxygen at home and it appeared in the hospital labs chemistries all reviewed she has chronic hypercapnia no new changes on chest x-ray her chest pain previously she was experiencing is now resolved no evidence of any infection patient stable to be discharged back patient to use her inhalers and low-dose prednisone 10 mg once or twice a day Qualifiers: Respiratory failure complication: hypoxia and hypercapnia Qualified Code(s): J96.11 - Chronic respiratory failure with hypoxia; J96.12 - Chronic respiratory failure with hypercapnia; J96.12 - Chronic respiratory failure with hypercapnia
[2022-08-23] MEDS ORDERED: LEVALBUTEROL 0.63 MG/3 ML NEB NEB PRN (12:58)
[2022-08-23] MEDS ORDERED: IPRATROPIUM BROM 0.5MG/2.5ML NEB PRN (12:58)
[2022-08-23] MEDS: DIAZEPAM 5 MG TABLET PO PRN ×2 (15:51→23:57)
--- NOTE | 2022-08-23 17:25 | P.PN ---
Subjective Date of Service: 08/23/22 Chief Complaint: Shortness of breath/COPD exacerbation Overnight, she did very well. She was able to be weaned off of BiPAP and is now on nasal cannula. However, she reports persistent shortness of breath. She denies any chest pain or palpitations. Review of Systems 10-point ROS is otherwise unremarkable Respiratory: Cough, Shortness of Breath Physical Examination - Vital Signs Temperature: 97.9 F Blood Pressure: 123/62 Pulse: 107 Respirations: 16 Pulse Ox (%): 97 - Studies Laboratory Data (last 24 hrs) 08/22/22 12:52: WBC 10.20, Hgb 11.3 L, Hct 37.0, Plt Count 206 Microbiology Data (last 24 hrs): 08/22/22 13:15 Blood - Blood Anaerobic Blood Culture - Final Assessment And Plan - Plan - Physical Exam General: Alert, In no apparent distress, Oriented x3 HEENT: Atraumatic, Mucous membr. moist/pink, Sclerae nonicteric Neck: JVD not distended Respiratory: Diminished, Faint end-expiratory wheezes Cardiovascular: No edema, Regular rate/rhythm, Normal S1 S2, No gallops, No rubs, No murmurs Gastrointestinal: Normal bowel sounds, Soft and benign, Non-distended, No tenderness, No rebound, No guarding Musculoskeletal: No clubbing Integumentary: No rashes Neurological: Normal speech, Normal affect - Plan # Acute on Chronic Hypercapnic, Hypoxemic Respiratory Failure - likely secondary to Acute Chronic Obstructive Pulmonary Disease Exacerbation # SIRS Criteria (Tachycardia, Tachypnea) secondary to above - no current evidence of infection # Pulmonary Arterial Hypertension # History of Hepatitis C s/p treatment with Liver Cirrhosis She required BiPAP on admission. This morning, she was on 3 L nasal cannula, and her SpO2 improved to 98 %. - Evaluation thus far: - Chest x-ray = "no new mass or consolidation confirmed." - Initial ABG = pH 7.29, PCO2 81.5, PO2 68.7 - Management plan: - Consulted Pulmonary Medicine and spoke with Dr. Smith - recommendations appreciated - Acetazolamide, bronchodilators, and steroids per Pulm - Consulted Respiratory Therapy - Supplemental oxygen to maintain SpO2 > 92% - Encouraged incentive spirometry # Hypertension - Continue home meds # Anxiety - Continue home gabapentin, PRN diazepam - Caution with anxiolytics given hypercapnia Lakhwinder Ackerman M.D.
[2022-08-23] MEDS: BENZONATATE 100 MG CAP PO PRN (20:45)
[2022-08-23] MEDS: MELATONIN 5 MG TABLET PO PRN (20:45)
[2022-08-23] MEDS: predniSONE 20 MG TAB PO SCH (20:45)
[2022-08-24 06:42] LABS: Magnesium 1.9 mg/dL (1.6-2.4); Phosphorus 3.1 mg/dL (2.5-4.9)
[2022-08-24 08:12] VITALS: BP 121/57; TEMP 98.2
[2022-08-24] MEDS: HYDROCODONE/APAP 7.5/325 MG TAB PO PRN (08:33)
[2022-08-24] MEDS: predniSONE 20 MG TAB PO SCH (08:34)
[2022-08-24] MEDS: GABAPENTIN 300 MG CAP PO SCH (08:34)
[2022-08-24] MEDS: acetaZOLAMIDE 250 MG TAB PO SCH (08:34)
--- NOTE | 2022-08-24 08:41 | P.DS ---
Admission Date: 08/22/22 Discharge Date: 08/24/22 Disposition: ROUTINE DISCHARGE Discharge Condition: GOOD Reason for Admission: Shortness of breath/COPD exacerbation Consultations: 1. Pulmonary Medicine Hospital Course: DIAGNOSES: # Acute on Chronic Hypercapnic, Hypoxemic Respiratory Failure - likely secondary to Acute Chronic Obstructive Pulmonary Disease Exacerbation # SIRS Criteria (Tachycardia, Tachypnea) secondary to above - no current evidence of infection # Pulmonary Arterial Hypertension # History of Hepatitis C s/p treatment with Liver Cirrhosis # Hypertension # Anxiety HOSPITAL COURSE: Ms. Mila Whiting is a 66 year old female with a past medical history significant for chronic obstructive pulmonary disease, pulmonary arterial hypertension, hepatitis C cirrhosis, hypertension, and anxiety who was admitted to the [facility] on 08/22/2022 for shortness of breath. She was admitted to the Medicine service. Upon further evaluation, she was found to have an acute on chronic hypercapnic, hypoxemic respiratory failure due to an acute chronic obstructive pulmonary disease exacerbation. She was initially started on BiPAP and Pulmonary Medicine was consulted. She was evaluated by Dr. Smith. She was treated with acetazolamide, bronchodilators, and steroids, and over the course of her hospitalization, her symptoms improved significantly. This morning, she was on her baseline oxygen requirement (3 L) and her respiratory status had returned to baseline. Dr. Smith has cleared her for discharge home with 5 days of prednisone and close outpatient follow-up. On 08/24/2022, she was seen on morning rounds and deemed medically stable for discharge. She was discharged with instructions to schedule follow-up appointments with her PCP and with pulmonary medicine (Dr. Smith). She was provided a prescription for prednisone. She was given the opportunity to ask questions and reported no further questions. Furthermore, all questions were answered to the best of my ability. A copy of this discharge summary will be sent to the above providers to facilitate continuity of care. Today, I personally spent 25 minutes on her case, of which greater than 50% of the time was spent in patient education, counseling, and coordination of care as described above. - Physical Exam General: Alert, In no apparent distress, Oriented x3 HEENT: Atraumatic, Mucous membr. moist/pink, Sclerae nonicteric Neck: JVD not distended Respiratory: Diminished, but clear to auscultation, without any wheezes, rhonchi, or rales Cardiovascular: No edema, Regular rate/rhythm, Normal S1 S2, No gallops, No rubs, No murmurs Gastrointestinal: Normal bowel sounds, Soft and benign, Non-distended, No tenderness, No rebound, No guarding Musculoskeletal: No clubbing Integumentary: No rashes Neurological: Normal speech, Normal affect Vital Signs/Physical Exam: Temp Pulse Resp BP Pulse Ox 98.2 F 94 H 18 121/57 L 100 08/24/22 08:00 08/24/22 08:00 08/24/22 08:33 08/24/22 08:00 08/24/22 08:33 Laboratory Data at Discharge: WBC 10.20 K/uL (4.3-10.9) 08/22/22 12:52 Hgb 11.3 g/dL (12.0-15.0) L 08/22/22 12:52 Hct 37.0 % (36.0-45.0) 08/22/22 12:52 Plt Count 206 K/uL (152-406) 08/22/22 12:52 PT 13.2 SECONDS (9.5-12.5) H 08/22/22 12:52 INR 1.20 08/22/22 12:52 Sodium 136 mmol/L (136-145) 08/23/22 07:38 Potassium 4.4 mmol/L (3.5-5.1) 08/23/22 07:38 BUN 13 mg/dL (7-18) 08/23/22 07:38 Creatinine 0.54 mg/dL (0.55-1.02) L 08/23/22 07:38 Glucose 226 mg/dL (74-106) H 08/23/22 07:38 Phosphorus 3.1 mg/dL (2.5-4.9) 08/24/22 05:57 Magnesium 1.9 mg/dL (1.6-2.4) 08/24/22 05:57 Home Medications: Amlodipine [Norvasc*] 1 tab PO DAILY 07/26/22 Budesonide/Formoterol Fumarate [Symbicort 160-4.5 Mcg Inhaler] 2 puff IH BID 07/26/22 Famotidine [Pepcid] 1 tab PO DAILY 07/26/22 Fluticasone [Flonase 50MCG Nasal Muse*] 1 spray MELANIA DAILY 07/26/22 Gabapentin 1 cap PO BID 07/26/22 Pantoprazole Sodium [Protonix] 1 tab PO DAILY 07/26/22 Hydrocodone 7.5/APAP 325 [[place] 7.5/325 mg*] 1 tab PO Q6H PRN #30 tab 07/29/22 Ipratropium Neb [Atrovent*] 0.5 mg IH [id number] #60 vial 07/29/22 Levalbuterol HCl [Xopenex] 1.25 mg IH Q8HP PRN #60 vial 07/29/22 Diazepam [Valium] 1 tab PO TID PRN 08/23/22 acetaZOLAMIDE [Diamox*] 250 mg PO DAILY 08/23/22 predniSONE [Prednisone*] 20 mg PO BID 5 Days #10 tab 08/24/22 New Medications: RX: predniSONE [Prednisone*] 20 mg PO BID 5 Days #10 tab Diet: AHA Activity: Ad zena Followup: Finesse Smith MD [ACTIVE - CAN ADMIT] - Time spent managing pt's care (in minutes): 25
[2022-08-24 10:20] VITALS: O2SAT 100
--- NOTE | 2022-08-24 17:04 | EKG ---
Test Date: 2022-08-22 Test Time: 12:10:34 Checkering Machine Operator: IVANA MEASUREMENT RESULTS: Intervals: Rate: 122 RI: 168 QRSD: 84 QT: 284 QTc: 404 [place]: P: 81 RI: 168 QRS: 77 T: 73 INTERPRETIVE STATEMENTS: Sinus tachycardia Possible Left atrial enlargement Left ventricular hypertrophy Inferior infarct, age undetermined Abnormal ECG Compared to ECG 07/25/2022 19:33:24 Myocardial infarct finding now present ST (T wave) deviation no longer present Electronically Signed On 08-24-22 17:02:22 HEALTH AND WELLNESS ADVISOR by Wilmer Mar
== END 2022-08-24 12:01 | disposition home or self-care (01) | DRG 190 ==
LOC: ER 11:59 → ERHOLD 15:06 → 2ND 16:17
PROVIDERS: ADMIT Internal Medicine; ATTEND Internal Medicine
PROC: 5A09457 Assistance with Respiratory Ventilation, 24-96 Consecutive Hours, Continuous Positive Airway Pressure (ICD-10-PCS; principal; 2022-08-22)
DX: J44.1 Chronic obstructive pulmonary disease with (acute) exacerbation (principal); J96.21 Acute and chronic respiratory failure with hypoxia; J96.22 Acute and chronic respiratory failure with hypercapnia; R65.10 Systemic inflammatory response syndrome (SIRS) of non-infectious origin without acute organ dysfunction; I10 Essential (primary) hypertension; F41.9 Anxiety disorder, unspecified; I27.21 Secondary pulmonary arterial hypertension; K21.9 Gastro-esophageal reflux disease without esophagitis; Z60.2 Problems related to living alone; Z88.8 Allergy status to other drugs, medicaments and biological substances; Z99.81 Dependence on supplemental oxygen; Z90.49 Acquired absence of other specified parts of digestive tract; Z79.52 Long term (current) use of systemic steroids; Z79.899 Other long term (current) drug therapy; Z20.822 Contact with and (suspected) exposure to COVID-19
CPT/HCPCS: 0240U; 36415; 71045; 80048; 82805; 83605; 83735; 83880; 84100; 84484; 85025; 85610; 87040; 93005; 94660; 96374; 97116; 97161; 97530; 99285; J2920; J2930; J7512; J7613; J7614; J7644

== ENCOUNTER 2022-08-25 22:27 | Emergency (ER) | payer OTHER ==
--- OUTSIDE RECORDS SUMMARY | 2022-08-25 22:34 | XMS REPORT | Continuity of Care Document ---
:1955 Author Organization [facility] t Address [address] [place] [address] Care Team Providers Name Role Phone Reshma Galan MD, Guille Gay Primary Care Physician [phone] Chantel Guido Attending Clinician Unavailable Doctor Unassigned, [place] Attending Clinician Unavailable DAMIAN BILLY Attending Clinician [...] Policy Number Effective Date Expiration Date [place] [facility] B [id number] 2020 ONLY MEDICARE 00:00:00 [place] [id number] [facility] Problems Condition Condition Condition Status Onset Resolution Last Treating Co mments Source Name Details Category Date Date Treatment Clinician Date Hypercapni Hypercapni Disease Active U nivers c c 8-31 ity of respirator [place] failure y failure [facility] Branch COPD COPD Disease Active Univers exacerbati exacerbati 5 it y of on on 00:00: [place] 00 [facility] Branch Symptomati Symptomati Disease Active U nivers c c 7-11 ity of menopausal menopausal [place] or female or female 00 [facility] climacteri climacteri Br anch c states c states Essential Essential Disease Active Uni vers hypertensi hypertensi 6-05 it y of on, benign [place], benign [place] 00 [facility] Spinal Spinal Disease Active Univers stenosis, stenosis, 6-05 ity of unspecifie unspecifie 00:[place] region d region 00 Medica l other than other than Br anch cervical cervical Spinal Spinal Disease Active Univers stenosis, stenosis, 02-02 ity of unspecifie unspecifie [place] region 00 Medica l other than other than Br anch cervical cervical [id number] History of Problem Active Co mmon colon Spirit polyps - [facility] [id number] Anxiety Problem Active Common [facility] [id number] Essential Problem Active Comm on hypertensi Spirit on [facility] [id number] Chronic Problem Active Commo n GERD Spirit [facility] [id number] Umbilical Problem Active Commo n hernia [facility] without [facility] obstructio [facility] without [facility] gangrene [facility] [id number] History of Problem Active C ommon 9101 hepatitis [facility] C [facility] [id number] Chronic Problem Active Common obstructiv Spirit e [facility] pulmonary St disease, [facility] unspecifie Medica l d COPD Center type [id number] Spinal Problem Active Common stenosis Spirit of lumbar - [facility] neurogenic Medica l claudicati Center on [id number] Other Problem Active Common chronic Spirit pain [facility] Allergies, Adverse Reactions, Alerts Allergy Allergy Status Severity Reaction(s) Onset Inactive Treating Comm ents Source Name Type Date Date Clinician Magnesiu Propensi Active Anaphylaxis Liquid C HI St m ty to 4 form [facility] adverse 00:00: Medical reaction 00 [place] Butorpha Propensi Active Anaphylaxis C HI [...] NOL INGREDI 6-05 ity of TARTRATE 00:00: [place] [id number] Medical Branch Social History Social Habit Start Date Stop Date Quantity Comments Source History of Tobacco Former Smoker Com mon Spirit - Use [facility] History SDNM [facility] Alcohol Comment Medical C enter History SDOH [facility] Alcohol Std Drinks Medica l Center History SDOH [facility] Alcohol Binge Medical L[address] ter Exposure to 2022-05-11 2022-05-21 Not sure University of SARS-CoV-2 (event) 00:00:00 13:54:00 [facility] Branch History [facility] Food 2022-05-07 2022-05-07 1 Univers ity of Worry 00:00:00 00:00:00 [facility] Branch History [facility] Food 2022-05-07 2022-05-07 1 Univers ity of Scarcity 00:00:00 00:00:00 [facility] Branch History [facility] 2022-05-07 2022-05-07 2 University o f Transport Med 00:00:00 00:00:00 [facility] al Branch History [facility] 2022-05-07 2022-05-07 2 University o f Transport Non-Med 00:00:00 00:00:00 [facility] Alcohol intake 2018-12-28 2018-12-[address] [facility] 00:00:00 00:00:00 non-drinker of Medical Ce nter alcohol (finding) Tobacco Comment 2018-12-27 2018-12-27 quit [facility]rs [facility]00 [facility] Tobacco use and 2018-12-27 2018-12-[address] [facility] exposure 00:00:00 00:00:00 Medical Center History [facility] 2018-12-27 2018-12-[address] [facility] Alcohol Frequency 00:00:00 00:00:00 [facility] Cigarettes smoked 2015-12-30 2015-12-30 Univers ity of current (pack per 00:00:00 00:00:00 [facility] day) - Reported Branch Cigarette 2015-12-30 2015-12-30 University of pack-years 00:00:00 00:00:00 [facility] Sex Assigned At [address] [facility] 00:00:00 00:00:00 [facility] Smoking Status Start Date Stop Date Source Former Smoker 2018-10-29 00:00:00 2018-10-29 00:00:00 Common S [facility]irit - [facility] Medications Ordered Filled Start Stop Current Ordering Indication Dosage Frequency Signature Comments Components Source Medication Medication Date Date Medication? Clinician (SIG) Name Name diazePAM Yes [id number] 5mg Take 1 Uni vers (VALIUM) 5 9-21 tablet by ity of mg tablet 00:00: mouth 3 [place] 00 (three) Medical times Branch daily as needed for Anxiety. diazePAM Yes [id number] 5mg Take 1 Uni vers (VALIUM) 5 9-21 tablet by ity of mg tablet 00:00: mouth 3 [place] 00 (three) Medical times Branch daily as needed for Anxiety. cholecalcif 2021- No [id number] 1000U Take 1 Univers morgan, 05-05 [id number] tablet by ity o f vitamin D3, 00:00: 04:59 mouth [place] 25 mcg 00 :00 the Medical (1,000 morning Branch unit) for 5 tablet days. zinc 2021- No [id number] 50mg Take 1 Uni vers sulfate 50 05-05 [id number] capsule by ity of mg zinc 00:00: 04:59 mouth in [place] (220 mg) 00 :00 the Medical capsule morning Branch for 5 days. cholecalcif 2021- No [id number] 1000U Take 1 Univers morgan, 05-05 [id number] tablet by ity o f vitamin D3, 00:00: 04:59 mouth [place] 25 mcg 00 :00 the Medical (1,000 morning Branch unit) for 5 tablet days. zinc 2021- No [id number] 50mg Take 1 Uni vers sulfate 50 05-05 [id number] capsule by ity of mg zinc 00:00: 04:59 mouth in [place] (220 mg) 00 :00 the Medical capsule morning Branch for 5 days. MOMETASONE Yes Use in [facility] rs FUROATE 05-04 each ity of (NASONEX 16:58: nostril. [place] NASAL) 28 Medical Branch HYDROcodone Yes 1{tbl} Take 1 Un nathen -acetaminop 9-04 tablet by ity of hen 7.5-325 16:58: mouth 3 [place] mg per 28 (three) Medical tablet times Branch daily. OXYGEN-AIR 2021-0 Yes by Univers DELIVERY 9-04 Miscellane ity o f SYSTEMS 16:58: ous route. Tripp morgan [address] Branch predniSONE Yes 5mg Take 5 mg Un nathen 5 mg tablet 9-04 by mouth. ity of 16:58: [address] Branch MOMETASONE Yes Use in Unive rs FUROATE 9-04 each ity of (NASONEX 16:58: nostril. [place] NASAL) Medical Branch HYDROcodone Yes 1{tbl} Take 1 Un nathen -acetaminop 9-04 tablet by ity of hen 7.5-325 16:58: mouth 3 [place] mg per 28 (three) Medical tablet times Branch daily. OXYGEN-AIR 0 Yes by Univers DELIVERY 9-04 Miscellane ity o f SYSTEMS 16:58: ous route. Tripp mrogan [address] Branch predniSONE Yes 5mg Take 5 mg Un nathen 5 mg tablet 9-04 by mouth. ity of 16:58: [address] Branch MOMETASONE Yes Use in Unive [...] ity o f SYSTEMS 16:58: ous route. [address] Branch predniSONE 0 Yes 5mg Take 5 mg Un nathen 5 mg tablet 9-04 by mouth. ity of 16:58: [address] Branch MOMETASONE Yes Use in Unive rs FUROATE 9-04 each ity of (NASONEX 16:58: nostril. [place] NASAL) Medical Branch HYDROcodone 2021-0 Yes 1{tbl} Take 1 Un nathen -acetaminop 9-04 tablet by ity of hen 7.5-325 16:58: mouth 3 [place] mg per 28 (three) Medical tablet times Branch daily. OXYGEN-AIR 2021-0 Yes by Univers DELIVERY 9-04 Miscellane ity o f SYSTEMS 16:58: ous route. [place] morgan [address] Branch predniSONE Yes 5mg Take 5 mg Un nathen 5 mg tablet 9-04 by mouth. ity of 16:58: [address] Branch MOMETASONE Yes Use in Unive rs FUROATE 9 each ity of (NASONEX 16:58: nostril. [place] NASAL) Medical Branch HYDROcodone Yes 1{tbl} Take 1 Un nathen -acetaminop 9-04 tablet by ity of hen 7.5-325 16:58: mouth 3 [place] mg per 28 (three) Medical tablet times Branch daily. OXYGEN-AIR 0 Yes by Univers DELIVERY -04 Miscellane ity o f SYSTEMS 16:58: ous route. [address] Branch predniSONE Yes 5mg Take 5 mg Un nathen 5 mg tablet -04 by mouth. ity of 16:58: [address] MOMETASONE Yes Use in Unive rs FUROATE 05-04 each ity of (NASONEX 16:58: nostril. [place] NASAL) Medical Branch HYDROcodone Yes 1{tbl} Take 1 Un nathen -acetaminop 9-04 tablet by ity of hen 7.5-325 16:58: mouth 3 [place] mg per 28 (three) Medical tablet times Branch daily. OXYGEN-AIR 0 Yes by Univers DELIVERY 04 Miscellane ity o f SYSTEMS 16:58: ous route. [address] Branch predniSONE 0 Yes 5mg Take 5 mg Un nathen 5 mg tablet -04 by mouth. ity of 16:58: [address] Branch TIOTROPIUM 2021- No Inhale. Uni vers BROMIDE - 09-04 ity of (SPIRIVA 11:06: 00:00 [place] RESPIMAT 58 :00 Medical INHALE) Branch promethazin 2021- No 5mL Take 5 mL Univers e-codeine 05-04 by mouth. ity of 6.25-10 11:06: 00:00 [place] mg/5 mL 58 :00 Medical syrup Branch methocarbam 2021-0 Yes [id number] 500mg Take 1 Univers oL 500 mg - [id number] tablet by it y of tablet 00:00: mouth 3 (three) Medical times Branch daily as needed (Muscle spasms). methocarbam 0 Yes [id number] 500mg Take 1 Univers oL 500 mg - [id number] tablet by it y of tablet 00:00: mouth 3 (three) Medical times Branch daily as needed (Muscle spasms). methocarbam 0 Yes [id number] 500mg Take 1 Univers oL 500 mg 05-04 [id number] tablet by it y of tablet 00:00: mouth 3 (three) Medical times Branch daily as needed (Muscle spasms). methocarbam Yes [id number] 500mg Take 1 Univers oL 500 mg - [id number] tablet by it y of tablet 00:00: mouth 3 (three) Medical times Branch daily as needed (Muscle spasms). methocarbam 0 Yes [id number] 500mg Take 1 Univers oL 500 mg - [id number] tablet by it y of tablet 00:00: mouth 3 (three) Medical times Branch daily as needed (Muscle spasms). methocarbam 0 Yes [id number] 500mg Take 1 Univers oL 500 mg - [id number] tablet by it y of tablet 00:00: mouth 3 (three) Medical times Branch daily as needed (Muscle spasms). acetaminoph 2022- No [id number] 650mg Take 2 Univers en 325 mg 05-04 [id number] tablets by ity of tablet 00:00: 04:59 mouth [place] 00 :00 every 6 Medical (six) Branch hours as needed for Pain (scale 1-3) or Temp > 38.5 C. acetaminoph 2021-2022- No [id number] 650mg Take 2 Univers en 325 mg 05-04 [id number] tablets by ity of tablet 00:00: 04:59 mouth [place] 00 :00 every 6 Medical (six) Branch hours as needed for Pain (scale 1-3) or Temp > 38.5 C. acetaminoph 2022- No [id number] 650mg Take 2 Univers en 325 mg 05-04 [id number] tablets by ity of tablet 00:00: 04:59 mouth [place] 00 :00 every 6 Medical (six) Branch hours as needed for Pain (scale 1-3) or Temp > 38.5 C. acetaminoph 2022- No [id number] 650mg Take 2 Univers en 325 mg 05-04 [id number] tablets by ity of tablet 00:00: 04:59 mouth [place] 00 :00 every 6 Medical (six) Branch hours as needed for Pain (scale 1-3) or Temp > 38.5 C. acetaminoph 2022- No [id number] 650mg Take 2 Univers en 325 mg 05-04 [id number] tablets by ity of tablet 00:00: 04:59 mouth [place] 00 :00 every 6 Medical (six) Branch hours as needed for Pain (scale 1-3) or Temp > 38.5 C. acetaminoph 2022- No [id number] 650mg Take 2 Univers en 325 mg 05-04 [id number] tablets by ity of tablet 00:00: 04:59 mouth [place] 00 :00 every 6 Medical (six) Branch hours as needed for Pain (scale 1-3) or Temp > 38.5 C. citalopram 2021- No [id number] 20mg Take 1 Univers 20 mg 9- 10-05 tablet by ity of tablet 00:00: 04:59 mouth in [place] 00 :00 the Medical morning Branch for 30 days. citalopram 2021-2021- No [id number] 20mg Take 1 Univers 20 mg 9-04 10-05 tablet by ity of tablet 00:00: 04:59 mouth in [place] 00 :00 the Medical morning Branch for 30 days. citalopram 2021- No [id number] 20mg Take 1 Univers 20 mg 9-04 10-05 tablet by ity of tablet 00:00: 04:59 mouth in [place] 00 :00 the Medical morning Branch for 30 days. citalopram 2021- No [id number] 20mg Take 1 Univers 20 mg 05-04 tablet by ity of tablet 00:00: 04:59 mouth in [place] 00 :00 the Medical morning Branch for 30 days. citalopram 2021- No [id number] 20mg Take 1 Univers 20 mg 05-04 tablet by ity of tablet 00:00: 04:59 mouth in [place] 00 :00 the Medical morning Branch for 30 days. ascorbic 2021- No [id number] 500mg Take 1 Univers acid, 05-04 [id number] tablet by ity o f vitamin C, 00:00: 04:59 mouth in [place] 500 mg 00 :00 the Medical tablet morning Branch and 1 tablet in the evening. Do all this for 5 days. dexAMETHaso 2021- No [id number] 6mg Take 1 Univers ne 6 mg 05-04 [id number] tablet by ity of tablet 00:00: 04:59 mouth in [place] 00 :00 the Medical morning Branch for 5 days. ascorbic 2021- No [id number] 500mg Take 1 Univers acid, 05-04 [id number] tablet by ity o f vitamin C, 00:00: 04:59 mouth in [place] 500 mg 00 :00 the Medical tablet morning Branch and 1 tablet in the evening. Do all this for 5 days. dexAMETHaso 2021- No [id number] 6mg Take 1 Univers ne 6 mg 05-04 [id number] tablet by ity of tablet 00:00: 04:59 mouth in [place] 00 :00 the Medical morning Branch for [...] 05-02 Oral, ity of (TYLENOL) 09:36: Q6HPRN, [place] tablet 650 19 Starting Medic al mg [...]
Durat ion of therapy: 72 hours diazePAM 2021- No 5mg 5 mg, Univers (VALIUM) [...] 40 mg 00 First dose Medical on [facility] Branch 04/30/22 at 1700, Until Discontinu ed, Routine morpHINE (4 2021- No 2mg 2 mg, Slow Univers [...] Medica l tablet 500 04/30/22 at [facility] mg 0815, Until Discontinu ed, Routine ipratropium 2021-0 Yes 3mL 3 mL, Unive rs -albuteroL [...] of succ 12:15: 11:27 s, ONCE, 1 [place] (SOLU-MEDRO 00 :00 dose, On Medi josé miguel L) Thu Branch injection 04/30/22 at 125 mg 0715, 2 mL ipratropium 0 Yes 3mL 3 mL, Unive rs -albuteroL 04-24 Inhalation ity of (DUONEB) 01:00: , QID, [place] 0.5 mg-3 00 First dose Medic al mg(2.5 mg on Thu Branch base)/3 mL 04/23/22 at nebulizer 2000, solution 3 Until mL Discontinu ed, Routine methylpredn 0 Yes 125mg 125 mg, Un nathen isolone sod 04-23 Intravenou it y of succ 23:00: s, Q6H, [place] (SOLU-MEDRO 00 First dose Me dical L) [...] used for status epilepticu s? No diazePAM 2021- Yes [id number] 5mg Take 1 Uni vers (VALIUM) 5 5-13 tablet by ity of mg tablet 00:00: mouth 3 (three) Medical times Branch daily as needed for Anxiety. diazePAM 2021-0 Yes [id number] 5mg Take 1 Uni vers (VALIUM) 5 5-13 tablet by ity of mg tablet 00:00: mouth 3 (three) Medical times Branch daily as needed for Anxiety. diazePAM 2021-0 Yes [id number] 5mg Take 1 Uni vers (VALIUM) 5 5-13 tablet by ity of mg tablet 00:00: mouth 3 (three) Medical times Branch daily as needed for Anxiety. diazePAM 0 Yes [id number] 5mg Take 1 Uni vers (VALIUM) 5 5-13 tablet by ity of mg tablet 00:00: mouth (three) Medical times Branch daily as needed for Anxiety. diazePAM 0 Yes [id number] 5mg Take 1 Uni vers (VALIUM) 5 5-13 tablet by ity of mg tablet 00:00: mouth 3 (three) Medical times Branch daily as needed for Anxiety. diazePAM 0 Yes [id number] 5mg Take 1 Uni vers (VALIUM) 5 5-13 tablet by ity of mg tablet 00:00: mouth (three) Medical times Branch daily as needed for Anxiety. diazePAM 0 Yes [id number] 5mg Take 1 Uni vers (VALIUM) 5 5-13 tablet by ity of mg tablet 00:00: mouth 3 (three) Medical times Branch daily as needed for Anxiety. diazePAM 2021-0 Yes [id number] 5mg Take 1 Uni vers (VALIUM) 5 5-13 tablet by ity of mg tablet 00:00: mouth (three) Medical times Branch daily as needed for Anxiety. diazePAM 0 Yes [id number] 5mg Take 1 Uni vers (VALIUM) 5 5-13 tablet by ity of mg tablet 00:00: mouth 3 (three) Medical times Branch daily as needed for Anxiety. diazePAM 2021-0 Yes [id number] 5mg Take 1 Uni vers (VALIUM) 5 5-13 tablet by ity of mg tablet 00:00: mouth 3 (three) Medical times Branch daily as needed for Anxiety. diazePAM 2021-0 2021- No [id number] 5mg Take 1 Un nathen (VALIUM) 5 5-13 09-21 tablet by ity of mg tablet 00:00: 00:00 [place] 3 [place] :[place] (three) Medical times Branch daily as needed for Anxiety. acetaZOLAMI 2021-0 Yes TAKE 1/2 Un nathen DE 250 mg 3-02 TABLE BY ity of tablet 00:00: MOUTH 2 [place] TIMES A Medical DAY Branch acetaZOLAMI 2021-0 Yes TAKE 1/2 Un nathen DE 250 mg 3-02 TABLE BY ity of tablet 00:00: MOUTH 2 [place] TIMES A Medical DAY Branch acetaZOLAMI 2021-0 Yes TAKE 1/2 Un nathen DE 250 mg 3-02 TABLE BY ity of tablet 00:00: MOUTH 2 [place] TIMES A Medical DAY Branch acetaZOLAMI 2021-0 Yes TAKE 1/2 Un nathen DE 250 mg 3-02 TABLE BY ity of tablet 00:00: MOUTH 2 [place] TIMES A Medical DAY Branch acetaZOLAMI 2021-0 Yes TAKE 1/2 Un nathen DE 250 mg 3-02 TABLE BY ity of tablet 00:00: MOUTH 2 [place] TIMES A Medical DAY Branch acetaZOLAMI 2021-0 Yes TAKE 1/2 Un nathen DE 250 mg 3-02 TABLE BY ity of tablet 00:00: MOUTH 2 [place] TIMES A Medical DAY Branch acetaZOLAMI 2021-0 Yes TAKE 1/2 Un nathen DE 250 mg 3-02 TABLE BY ity of tablet 00:00: MOUTH 2 [place] TIMES A Medical DAY Branch acetaZOLAMI 2021-0 Yes TAKE 1/2 Un nathen DE 250 mg 3-02 TABLE BY ity of tablet 00:00: MOUTH 2 [place] TIMES A Medical DAY Branch acetaZOLAMI 2021-0 Yes TAKE 1/2 Un nathen DE 250 mg 3-02 TABLE BY ity of tablet 00:00: MOUTH 2 [place] TIMES A Medical DAY Branch acetaZOLAMI 2021-0 Yes TAKE 1/2 Un nathen DE 250 mg 3-02 TABLE BY ity of tablet 00:00: MOUTH 2 [place] TIMES A Medical DAY Branch acetaZOLAMI 2021-0 Yes TAKE 1/2 Un nathen DE 250 mg 3-02 TABLE BY ity of tablet 00:00: MOUTH 2 [place] TIMES A Medical DAY Branch acetaZOLAMI 2021-0 Yes TAKE 1/2 Un nathen DE 250 mg 3-02 TABLE BY ity of tablet 00:00: MOUTH 2 00 TIMES A Medical DAY Branch acetaZOLAMI 2-0 Yes TAKE 1/2 Un nathen DE 250 mg 3-02 TABLE BY ity of tablet 00:00: MOUTH 2 TIMES A Medical DAY Branch acetaZOLAMI 2-0 Yes TAKE 1/2 Un nathen DE 250 mg 3-02 TABLE BY ity of tablet 00:00: MOUTH 2 TIMES A Medical DAY Branch AMLODIPINE 2-0 Yes [id number] TAKE 1 Un nathen 5 mg tablet 2-14 TABLET BY ity of 00:00: MOUTH EVERY DAY Medical Branch AMLODIPINE 2-0 Yes [id number] TAKE 1 Un nathen 5 mg tablet 2-14 TABLET BY ity of 00:00: [facility] EVERY DAY Medical Branch AMLODIPINE 2-0 Yes [id number] TAKE 1 Un nathen 5 mg tablet 2-14 TABLET BY ity of 00:00: [facility] EVERY DAY Medical Branch AMLODIPINE 2-0 Yes [id number] TAKE 1 Un nathen 5 mg tablet 2-14 TABLET BY ity of 00:00: [facility] EVERY DAY Medical Branch AMLODIPINE 2-0 Yes [id number] TAKE 1 Un nathen 5 mg tablet 2-14 TABLET BY ity of 00:00: [facility] EVERY DAY Medical Branch AMLODIPINE 2-0 Yes [id number] TAKE 1 Un nathen 5 mg tablet 2-14 TABLET BY ity of 00:00: [facility] EVERY DAY Medical Branch AMLODIPINE 2-0 Yes [id number] TAKE 1 Un nathen 5 mg tablet 2-14 TABLET BY ity of 00:00: [facility] EVERY DAY Medical Branch AMLODIPINE 2022-0 Yes [id number] TAKE 1 Un nathen 5 mg tablet 2-14 TABLET BY ity of 00:00: [facility] EVERY DAY Medical Branch AMLODIPINE 2022-0 Yes [id number] TAKE 1 Un nathen 5 mg tablet 2-14 TABLET BY ity of 00:00: [facility] EVERY DAY Medical Branch AMLODIPINE 2022-0 Yes [id number] TAKE 1 Un nathen 5 mg tablet 2-14 TABLET BY ity of 00:00: [facility] EVERY DAY Medical Branch AMLODIPINE 2022-0 Yes [id number] TAKE 1 Un nathen 5 mg tablet 2-14 TABLET BY ity of 00:00: MOUTH [place] 00 EVERY DAY Medical Branch AMLODIPINE 0 Yes [id number] TAKE 1 Un nathen 5 mg tablet 2-14 TABLET BY ity of 00:00: MOUTH DAY Medical Branch AMLODIPINE 0 Yes [id number] TAKE 1 Un nathen 5 mg tablet 2-14 TABLET BY ity of 00:00: MOUTH EVERY DAY Medical Branch AMLODIPINE 2021-0 Yes [id number] TAKE 1 Un nathen 5 mg tablet 2-14 TABLET BY ity of 00:00: MOUTH EVERY DAY Medical Branch diazePAM 2020-08- No [id number] 5mg Take 1 Un nathen (VALIUM) 5 2-31 05-13 tablet by ity of mg tablet 00:00: 00:00 mouth 3 [place] :[place] (three) Medical times Branch daily as needed for Anxiety. ZENDAMARISCOTTA 2020-08 Yes Univers 40,000-126, 2-14 ity of [...] 168,000 00 Medical unit CpDR Branch ZENPEP 2020- Yes Univers 40,000-126, 2-14 ity of 000- 00:00: [place] 168,000 00 Medical unit CpDR Branch ZENPEP 2020-08 Yes Univers 40,000-126, 2-14 ity of 000- 00:00: [place] 168,000 00 Medical unit CpDR Branch ZENPEP 2020-08 Yes Univers 40,000-126, 2-14 ity of 000- 00:00: [place] 168,000 00 Medical unit CpDR Branch pantoprazol 2020-08 Yes [id number] 40mg Take 1 Univers e 40 mg EC 0-04 tablet by ity of tablet 00:00: mouth [place] 00 daily. Medical Branch pantoprazol 2020-08 Yes [id number] 40mg Take 1 Univers e 40 mg EC 0-04 tablet by ity of tablet 00:00: mouth [place] 00 daily. Medical Branch pantoprazol 2020-08 Yes [id number] 40mg Take 1 Univers e 40 mg EC 0-04 tablet by ity of tablet 00:00: mouth [place] 00 daily. Medical Branch pantoprazol 2020-08 Yes [id number] 40mg Take 1 Univers e 40 mg EC 0-04 tablet by ity of tablet 00:00: mouth [place] 00 daily. Medical Branch pantoprazol 2020-08 Yes [id number] 40mg Take 1 Univers e 40 mg EC 0-04 tablet by ity of tablet 00:00: mouth [place] 00 daily. Medical Branch pantoprazol 2020-08 Yes [id number] 40mg Take 1 Univers e 40 mg EC 0-04 tablet by ity of tablet 00:00: mouth [place] 00 daily. Medical Branch pantoprazol 2020-08 Yes [id number] 40mg Take 1 Univers e 40 mg EC 0-04 tablet by ity of tablet 00:00: mouth [place] 00 daily. Medical Branch pantoprazol 2020-08 Yes [id number] 40mg Take 1 Univers e 40 mg EC 0-04 tablet by ity of tablet 00:00: mouth [place] 00 daily. Medical Branch pantoprazol 2020-08 Yes [id number] 40mg Take 1 Univers e 40 mg EC 0-04 tablet by ity of tablet 00:00: mouth [place] 00 daily. Medical Branch pantoprazol 2020-08 Yes [id number] 40mg Take 1 Univers e 40 mg EC 0-04 tablet by ity of tablet 00:00: mouth [place] 00 daily. Medical Branch pantoprazol 2020-08 Yes [id number] 40mg Take 1 Univers e 40 mg EC 0-04 tablet by ity of tablet 00:00: mouth [place] 00 daily. Medical Branch pantoprazol 2020-08 Yes [id number] 40mg Take 1 Univers e 40 mg EC 0-04 tablet by ity of tablet 00:00: mouth [place] 00 daily. Medical Branch pantoprazol 2020-08 Yes [id number] 40mg Take 1 Univers e 40 mg EC 0-04 tablet by ity of tablet 00:00: mouth [place] 00 daily. Medical Branch pantoprazol 2020-08 Yes [id number] 40mg Take 1 Univers e 40 mg EC 0-04 tablet by ity of tablet 00:00: mouth [place] 00 daily. [facility] Branch predniSONE 0 Yes 5mg Take 5 mg Un nathen 5 mg tablet 4-13 by mouth. ity of 14:13: [address] predniSONE 2020-0 Yes 5mg Take 5 mg Un nathen 5 mg tablet 4-13 by mouth. ity of 14:13: [address] predniSONE 2020-0 Yes 5mg Take 5 mg Un nathen 5 mg tablet 4-13 by mouth. ity of 14:13: [address] Branch predniSONE 2020-0 Yes 5mg Take 5 mg Un nathen 5 mg tablet 4-13 by mouth. ity of 14:13: [address] predniSONE 2020-0 Yes 5mg Take 5 mg Un nathen 5 mg tablet 4-13 by mouth. ity of 14:13: [address] predniSONE 2020-0 Yes 5mg Take 5 mg Un nathen 5 mg tablet 4-13 by mouth. ity of 14:13: [address] predniSONE 2020-0 Yes 5mg Take 5 mg Un nathen 5 mg tablet 4-13 by mouth. ity of 14:13: [address] predniSONE 2020-0 Yes 5mg Take 5 mg Un nathen 5 mg tablet 4-13 by mouth. ity of 14:13: [address] HYDROcodone Yes 1{tbl} Take 1 Un nathen -acetaminop 3-12 tablet by ity of hen 7.5-325 14:37: mouth 3 [place] mg per 07 (three) Medical tablet times Branch daily. OXYGEN-AIR Yes by Univers DELIVERY 3-12 Miscellane ity o f SYSTEMS 14:37: ous route. Tripp morgan [address] Branch HYDROcodone Yes 1{tbl} Take 1 Un nathen -acetaminop 3-12 tablet by ity of hen 7.5-325 14:37: mouth 3 [place] mg per 07 (three) Medical tablet times Branch daily. OXYGEN-AIR Yes by Univers DELIVERY 3-12 Miscellane ity o f SYSTEMS 14:37: ous route. Tripp morgan [address] Branch HYDROcodone Yes 1{tbl} Take 1 Un nathen -acetaminop 3-12 tablet by ity of hen 7.5-325 14:37: mouth 3 Shawn as mg per 07 (three) Medical tablet times Branch daily. OXYGEN-AIR Yes by Univers DELIVERY 3-12 Miscellane ity o f SYSTEMS 14:37: ous route. Tripp [address] HYDROcodone Yes 1{tbl} Take 1 Un nathen -acetaminop 3-12 tablet by ity of hen 7.5-325 14:37: mouth 3 Shawn as mg per 07 (three) Medical tablet times Branch daily. OXYGEN-AIR Yes by Univers DELIVERY 3-12 Miscellane ity o f SYSTEMS 14:37: ous route. Shawn[address] Branch HYDROcodone 2020- Yes 1{tbl} Take 1 Un nathen -acetaminop 3-12 tablet by ity of hen 7.5-325 14:37: mouth 3 Shawn as mg per 07 (three) Medical tablet times Branch daily. OXYGEN-AIR Yes by Univers DELIVERY 3-12 Miscellane ity o f SYSTEMS 14:37: [place] [address] [place] HYDROcodone Yes 1{tbl} Take 1 Un nathen -acetaminop 3-12 tablet by ity of hen 7.5-325 14:37: mouth 3 Shawn as mg per 07 (three) Medical tablet times Branch daily. OXYGEN-AIR Yes by Univers DELIVERY 3-12 Miscellane ity o f SYSTEMS 14:37: ous route. Tirpp morgan [address] Branch HYDROcodone Yes 1{tbl} Take 1 Un nathen -acetaminop 3-12 tablet by ity of hen 7.5-325 14:37: mouth 3 Shawn as mg per 07 (three) Medical tablet times Branch daily. OXYGEN-AIR Yes by Univers DELIVERY 3-12 Miscellane ity o f SYSTEMS 14:37: ous route. Tripp morgan [address] HYDROcodone Yes 1{tbl} Take 1 Un nathen -acetaminop 3-12 tablet by ity of hen 7.5-325 14:37: mouth 3 Shawn as mg per 07 (three) Medical tablet times Branch daily. OXYGEN-AIR Yes by Univers DELIVERY 3-12 Miscellane ity o f SYSTEMS 14:37: ous route. Tripp morgan [address] Branch SPIRIVA Yes INHALE 2 Univer s [...] TIOTROPIUM 0 Yes Inhale. Univ ers BROMIDE 7- ity of (SPIRIVA 14:52: [place] RESPIMAT 14 [...] [place] RESPIMAT 14 Medical INHALE) Branch MOMETASONE 2019 Yes Use in Unive rs FUROATE 7-17 [...] by mouth [facility] (PHENERGAN 10:34: every 4 [facility] WITH 04 (four) Center CODEINE) hours as 6.25-10 needed for mg/5 mL Cough. syrup gabapentin 2018- Yes 100mg QD Take [address] (NEURONTIN) 4-30 mg by [facility] 100 MG 10:34: mouth Medical capsule 04 daily. Center OXYGEN-AIR Yes by [facility] DELIVERY 4-30 [facility]ane [facility] SYSTEMS 10:34: ous route. [facility] 04 Center aspirin 81 2018- Yes 81mg QD [...] Luke s 5 MG tablet 10:34: daily. [facility] 04 Center budesonide- 2019-0 Yes 2{puff} [...] Center capsule needed for Constipati on. psyllium 20190 Yes .52g Take 0.[address] 0.52 [...] by mouth [facility] (PHENERGAN 10:34: every 4 [facility] WITH 04 (four) Center CODEINE) hours as 6.25-10 needed for mg/5 mL Cough. syrup gabapentin 2019-0 Yes 100mg QD Take [address] (NEURONTIN) 4-30 mg by [facility] 100 MG 10:34: mouth Medical capsule 04 daily. [place] OXYGEN-AIR 2019-[address] [facility] DELIVERY 4-30 Miscellane [facility] SYSTEMS 10:34: ous route. [address] aspirin 81 2019-0 Yes 81mg QD Take [address] MG EC 4-30 by mouth [facility] tablet 10:34: daily. Medical [address] [place] [address] ALPRAZolam 2019-0 Yes .5mg Take 0.5 [facility] [...] Luke s 5 MG tablet 10:34: daily. [address] budesonide- 2019-0 Yes 2{puff} Q.5D Inhale [...] St -acetaminop 4-30 tablet by Cat es jacquelyn (NORCO 10:34: mouth Medica l 7.5-325) 04 [...] every 7 Medical 04 days. Center pantoprazol 2018-0 Yes 20mg QD Take 20 mg [facility] [...] by mouth [facility] (PHENERGAN 10:34: every 4 [facility] WITH 04 (four) Center CODEINE) hours as 6.25-10 needed for mg/5 mL Cough. syrup gabapentin 2018-0 Yes 100mg QD Take [address] (NEURONTIN) 4-30 mg by [facility] 100 MG 10:34: mouth Medical capsule 04 daily. Center OXYGEN-AIR 2018-[address] [facility] DELIVERY 4-30 Miscellane [facility] SYSTEMS 10:34: ous route. [facility] MIS 04 Center aspirin 81 2018-0 Yes 81mg QD Take [address] MG EC 4-30 by mouth [facility] tablet 10:34: daily. Medical 04 Center ALPRAZolam 0 Yes .5mg Take 0.[address] (XANAX) 0.5 4-30 mg by [facility] MG tablet 10:34: mouth 3 Medic al 04 (three) Center times daily as needed for Anxiety. albuterol 2018-0 Yes 2.5mg Take 2.[address] (PROVENTIL) [...] every 7 Cente r PTWK days. lactulose 2019 Yes 20g Take [address] [...] MG 10:34: mouth Medical capsule 04 daily. [place] OXYGEN-AIR 2019-[address] [facility] DELIVERY 4-30 Miscellane [facility] SYSTEMS 10:34: ous route. [address] aspirin 81 0 Yes 81mg QD Take [address] MG EC 4-30 by mouth [facility] tablet 10:34: daily. [address] ALPRAZolam Yes .5mg Take 0.5 CH[facility] [...] Luke s 5 MG tablet 10:34: daily. [address] budesonide- 2018-0 Yes 2{puff} Q.5D Inhale [address] formoterol 4-30 puffs by [facility] (SYMBICORT) 10:34: mouth via M edical 160-4.5 04 inhaler 2 Center mcg/actuati (two) on inhaler times daily. amLODIPine 0 Yes 5mg QD Take [address] (NORVASC) 5 4-30 by mouth Luke s MG tablet 10:34: daily. Medica l [address] [place] [address] tiotropium 0 Yes 18ug Q.5D Inhale [address] (SPIRIVA) 4-30 mcg by [facility]ukes 18 mcg 10:34: mouth via Medica l inhalation 04 inhaler 2 Cent er capsule (two) times daily. aspirin 81 Yes 81mg QD Take [address] MG EC 4-30 by mouth [facility] tablet 10:34: daily. [address] ALPRAZolam 2019-0 Yes .5mg Take 0.5 [facility] [...] Cent er capsule (two) times daily. HYDROcodone 2019 Yes 1{tbl} Take [address] [...] 04 every 7 Cente r PTWK days. HYDROcodone 2019-0 Yes 1{tbl} Take [address] -acetaminop 4-30 tablet by Cat es hen (NORCO 10:34: mouth Medica l 7.5-325) 04 every 8 Center 7.5-325 mg (eight) per tablet hours as needed for Pain. lactulose Yes 20g Take 20 g CHI [...] route. Medi josé miguel MISC 04 Center buprenorphi [address]90 Yes 1{patch Place [address] ne [...] 4-30 Miscellane [facility] SYSTEMS 10:34: ous route. [facility] MISC 04 Center aspirin 81 2018-0 Yes 81mg QD Take 81 mg C [...] [facility] -acetaminop 4-30 tablet by [facility] (NORCO 10:34: mouth Medica l 7.5-325) 04 every 8 Center 7.5-325 mg (eight) per tablet hours as needed for Pain. buprenorphi Yes 1{patch Place [address] [facility] ne 4-30 } patch onto [facility] (BUTRANS) 10:34: the skin Medi josé miguel 10 mcg/hour 04 every 7 Cente r PTWK days. lactulose Yes 20g Take [address] (CHRONULAC) 4-30 by mouth Luke s 10 gram/15 10:34: daily as Med ical mL (15 mL) 04 needed. [place] solution docusate Yes 200mg Take [address] sodium 4-30 mg by [facility]ukes (COLACE) 10:34: mouth Medical 100 MG 04 daily as Center capsule needed for Constipati on. psyllium Yes .52g Take 0.[address] 0.52 gram 4-30 g by mouth Luke s capsule 10:34: every 7 Medical 04 days. [place] Butrans Butrans Yes Na Guido 1 patch to Common skin [facility] Lactulose Lactulose Yes Na Guido 15 ml C ommon [facility] Lopressor Lopressor Yes Na Guido 1 tablet Common with food [facility] Spiriva Spiriva Yes Na Guido 2 puffs Com mon Respimat Respimat [facility] Aspirin 81 Aspirin 81 Yes Na Guido 1 tablet Common [facility] Zyrtec Zyrtec Yes Na Guido 1 tablet Comm on Allergy Allergy [facility] [place] Yes Na Guido 1 tablet Common as needed [facility] Albuterol-I Albuterol-I Yes Na Guido not Common pratropium pratropium [facility] Alprazolam Alprazolam Yes Na Guido 1 tablet Common [facility] Symbicort Symbicort Yes Na Guido 2 puffs Common [facility] Norvasc Norvasc Yes Na Guido 1 tablet Co mmon [facility] Protonix Protonix Yes Na Guido 1/2 tablet [facility] PredniSONE PredniSONE Yes Na Guido 1 tablet [facility] Combivent Combivent Yes Na Guido not Co mmon [facility] Butrans 10 Butrans 10 No [...] QD Norvasc 5 MG MG t} MG [place] No 1{table QID [place] 7.5-325 MG 7.5-325 MG t_as_ne 7.5-325 MG [...] Immunizations Ordered Filled Immunization Date Status Comments [facility] e Immunization Name Name [facility] 2022-05-04 Completed University of 00:00:00 [facility] Remdesivir 2022-05-04 Completed University of 00:00:00 [facility] Remdesivir 2022-05-04 Completed University of 00:00:00 [facility] Remdesivir 2022-05-04 Completed University of 00:00:00 [facility] Remdesivir 2022-05-04 Completed University of 00:00:00 [facility] Remdesivir 2022-05-04 Completed University of 00:00:00 [facility] Remdesivir 2022-05-03 Completed University of 00:00:00 [facility] Remdesivir 2022-05-03 Completed University of 00:00:00 [facility] Remdesivir 2022-05-03 Completed University of 00:00:00 [facility] Remdesivir 2022-05-03 Completed University of 00:00:00 [facility] Remdesivir 2022-05-03 Completed University of 00:00:00 [facility] Remdesivir 2022-05-03 Completed University of 00:00:00 [facility] Remdesivir 2022-05-02 Completed University of 00:00:00 [facility] Remdesivir 2022-05-02 Completed University of 00:00:00 [facility] Remdesivir 2022-05-02 Completed University of 00:00:00 [facility] Remdesivir 2022-05-02 Completed University of 00:00:00 [facility] Remdesivir 2022-05-02 Completed University of 00:00:00 [facility] Remdesivir 2022-05-02 Completed University of 00:00:00 [facility] Remdesivir 2022-05-01 Completed University of 00:00:00 [facility] Remdesivir 2022-05-01 Completed University of 00:00:00 [place] [facility] Remdesivir 2022-05-01 Completed University of 00:00:00 [place] [facility] Remdesivir 2022-05-01 Completed University of 00:00:00 [facility] Remdesivir 2022-05-01 Completed University of 00:00:00 [facility] Remdesivir 2022-05-01 Completed University of 00:00:00 [facility] Remdesivir 2022-04-30 Completed University of 00:00:00 [facility] Remdesivir 2022-04-30 Completed University of 00:00:00 [facility] Remdesivir 2022-04-30 Completed University of 00:00:00 [facility] Remdesivir 2022-04-30 Completed University of 00:00:00 [facility] Remdesivir 2022-04-30 Completed University of 00:00:00 [facility] Remdesivir 2022-04-30 Completed University of 00:00:00 [facility] SARS-COV-2 COVID-19 2021-08-30 Completed Unive rsity of MODERNA 0.25ML 00:00:00 [place] Medi josé miguel BOOSTER VACCINE Branch SARS-COV-2 COVID-19 2021-08-30 Completed Unive rsity of MODERNA 0.25ML 00:00:00 [place] Medi josé miguel BOOSTER VACCINE Branch SARS-COV-2 COVID-19 2021-08-30 Completed Unive rsity of MODERNA 0.25ML 00:00:00 [place] Medi josé miguel BOOSTER VACCINE Branch SARS-COV-2 [...] Completed Unive rsity of MODERNA 0.25ML 00:00:00 [facility] josé miguel BOOSTER VACCINE Branch Kenalog Kenalog 2018-11-08 Completed [facility] - (Triamcinolone) (Triamcinolone) 13:04:00 [facility] Vital Signs Vital Name Observation Time Observation Value Comments Source Systolic blood 2022-05-21 19:06:00 159 mm[Hg] Univer sity of pressure [facility] Diastolic blood 2022-05-21 19:06:00 73 mm[Hg] Unive rsity of pressure [facility] Heart rate 2022-05-21 19:05:00 109 /min [facility] Body temperature 2022-05-21 19:05:00 37.5 Odalys [facility] Body height 2022-05-21 19:05:00 154.9 cm [facility] Body weight 2022-05-21 19:05:00 63.05 kg [facility] BMI 2022-05-21 19:05:00 26.26 kg/m2 [facility] Oxygen saturation in 2022-05-21 19:05:00 96 /min [facility] Arterial blood by [facility] Pulse oximetry Branch Heart rate 2022-05-04 20:35:00 107 /min [facility] [place] [facility] Respiratory rate 2022-05-04 20:35:00 18 /min Univ ersity of [place] [facility] Oxygen saturation in 2022-05-04 20:35:00 99 /min University of Arterial blood by [facility] Pulse oximetry Branch Systolic blood 2022-05-04 17:00:00 121 mm[Hg] Univer sity of pressure [facility] Diastolic blood 2022-05-04 17:00:00 75 mm[Hg] Unive rsity of pressure [facility] Body temperature 2022-05-04 17:00:00 36.5 Odalys Univ ersity [facility] [place] [facility] Body weight 2022-05-04 10:05:00 65.499 kg [facility] [place] [facility] BMI 2022-05-04 10:05:00 27.28 kg/m2 [facility] [place] [facility] Body height 2022-04-30 13:07:00 154.9 cm [facility] [place] [facility] Heart rate 2022-04-23 22:58:00 104 /min [facility] [place] [facility] Respiratory rate 2022-04-23 22:58:00 18 /min Univ ersity of [place] [facility] Oxygen saturation in 2022-04-23 22:58:00 100 /min University of Arterial blood by [facility] Pulse oximetry Branch Systolic blood 2022-04-23 22:26:00 130 mm[Hg] Univer sity of pressure [facility] Diastolic blood 2022-04-23 22:26:00 81 mm[Hg] Unive rsity of pressure [facility] Body temperature 2022-04-23 22:26:00 37.22 Odalys Univ ersity [facility] [place] [facility] Body height 2022-04-23 22:26:00 154.9 cm [facility] [place] [facility] Body weight 2022-04-23 22:26:00 64.411 kg [facility] [place] [facility] BMI 2022-04-23 22:26:00 26.83 kg/m2 [facility] [place] [facility] Systolic blood 2022-01-10 18:39:00 164 mm[Hg] Univer sity of pressure [place] [facility] Diastolic blood 2022-01-10 18:39:00 82 mm[Hg] Unive rsity of pressure [facility] Heart rate 2022-01-10 18:38:00 108 /min [facility] Body temperature 2022-01-10 18:38:00 37.33 Odalys [facility] Body height 2022-01-10 18:38:00 154.9 cm [facility] Body weight 2022-01-10 18:38:00 65.318 kg [facility] BMI 2022-01-10 18:38:00 27.21 kg/m2 [facility] Oxygen saturation in 2022-01-10 18:38:00 95 /min [facility] Arterial blood by [facility] Pulse oximetry [place] Procedures Procedure Date / Time Performing Clinician Source Performed EXTERNAL PROVIDER RECORDS 2022-07-15 06:01:00 Doctor Unassigned, [facility] [place] [facility] MAGNESIUM 2022-05-04 10:03:00 Gil [facility] BASIC METABOLIC PANEL 2022-05-04 10:03:00 Gil [facility] (NA, K, CL, CO2, GLUCOSE, Medica l Branch BUN, CREATININE, CA) ACUTE CARE VENOUS BLOOD 2022-05-04 10:03:00 Gil [facility] ACUTE CARE VENOUS BLOOD 2022-05-03 15:18:00 Gil [facility] MAGNESIUM 2022-05-03 15:14:00 Gil [facility] BASIC METABOLIC PANEL 2022-05-03 15:14:00 Gil [facility] (NA, K, CL, CO2, GLUCOSE, Medica l Branch BUN, CREATININE, CA) MAGNESIUM 2022-05-02 09:31:00 [facility] BASIC METABOLIC PANEL 2022-05-02 09:31:00 Prakash [facility] (NA, K, CL, CO2, GLUCOSE, Medica l Branch BUN, CREATININE, CA) CBC WITH DIFF 2022-05-02 09:31:00 Prakash Berg [facility] ACUTE CARE VENOUS BLOOD 2022-05-02 09:28:00 Leesa Mark [facility] MAGNESIUM 2022-05-01 09:20:00 Prakash Berg [facility] BASIC METABOLIC PANEL 2022-05-01 09:20:00 Prakash [facility] (NA, K, CL, CO2, GLUCOSE, Medica l Branch BUN, CREATININE, CA) ACUTE CARE VENOUS BLOOD 2022-05-01 09:20:00 Leesa Mark [facility] CBC WITH DIFF 2022-05-01 09:20:00 Prakash Berg [facility] MRSA / MSSA SCREEN BY 2022-04-30 22:35:00 Jayden [facility] PCR, NARES [facility] ACUTE CARE ARTERIAL BLOOD 2022-04-30 21:28:00 Prakash Berg [facility] ACUTE CARE ARTERIAL BLOOD 2022-04-30 15:47:00 Prakash Berg [facility] COVID-19 (ID NOW RAPID 2022-04-30 11:56:00 Mariposa Craig [facility] TESTING) Medical Branch LAB ONLY COVID 2022-04-30 11:56:00 Mariposa Craig [facility] CRITICAL CARE 2022-04-30 11:54:13 Mariposa Craig [facility] ACUTE CARE ARTERIAL BLOOD 2022-04-30 11:35:00 Mariposa Craig [facility] XR CHEST 1 VW 2022-04-30 10:37:04 Mariposa Craig [facility] TROPONIN I 2022-04-30 10:13:00 Mariposa Craig [facility] BASIC METABOLIC PANEL 2022-04-30 10:13:00 Mariposa Craig [facility] (NA, K, CL, CO2, GLUCOSE, Medica l Branch BUN, CREATININE, CA) CBC WITH DIFF 2022-04-30 10:13:00 Mariposa Craig [facility] HB ECG ROUTINE & RHYTHM 2022-04-30 09:46:40 Mariposa Craig [facility] EMERGENCY DEPARTMENT 2022-04-30 05:01:00 Doctor Unassigned, [facility] DOCUMENTS [place] Medical Branch TROPONIN I 2022-04-23 22:38:00 Singer [facility] COMP. METABOLIC PANEL 2022-04-23 22:38:00 Jeff Sampson [facility] [place] ([id number]) Medical Branch CBC WITH DIFF 2022-04-23 22:38:00 Singer [facility] N-TERMINAL PRO-BNP 2022-04-23 22:38:00 Jeff Sampson [facility] Medical Branch HOME HEALTH - OTHER 2022-02-11 05:01:00 Doctor Norman [facility] [place] Medical Branch HOME HEALTH - OTHER 2022-02-07 05:01:00 Doctor Norman [facility] [place] Medical Branch HOME HEALTH - OTHER 2022-02-03 05:01:00 Doctor Norman [facility] [place] Medical Branch HOME HEALTH - OTHER 2022-01-17 05:01:00 Doctor Norman [facility] [place] Medical Branch HOME HEALTH - OTHER 2021-12-29 05:01:00 Doctor Norman [facility] [place] Medical Branch HOME HEALTH - OTHER 2021-12-20 05:01:00 Doctor Norman [facility] [place] Medical Branch Plan of Care Planned Activity Planned Date Details Comments Source Future Scheduled 2020-05-[address] [facility] Test 00:00:00 (#1) [code = [facility] INFLUENZA VACCINE (#1)] Future Scheduled [address] [facility] Test 00:00:00 (procedure) [code = [facility] [id number]] Future Scheduled [address] Test 00:00:00 malignant neoplasm Medical C enter of cervix (procedure) [code = 968476478] Future Scheduled [address] [facility] Test 00:00:00 malignant neoplasm Medical C enter of breast (procedure) [code = 111640645] Future Scheduled [address] [facility] Test 00:00:00 malignant neoplasm Medical C enter of colon (procedure) [code = 334870054] Encounters Start End Encounter Admission Attending Care Care Encounter Source Date/Time Date/Time Type Type Clinicians Facility Department ID 2021-09-25 Outpatient Chantel Guido [facility] [id number] 2 Common 11:46:50 [id number] [facility] 2021-09-25 Outpatient Chantel Guido [facility] [id number] 2 Common 11:44:44 [id number] [facility] 2022-07-15 2022-07-15 Orders Doctor DONNA [id number] Univers 00:00:00 00:00:00 Only Unassigned, JONATHAN [id number] ity of [place] [facility] [id number] Shawn as [phone] [address] 2022-06-18 2022-06-18 Outpatient [facility] [id number] Univers 13:30:00 13:30:00 DAM[facility] 2022-05-21 2022-05-21 [facility] 1.2.840.114 [id number] Univers 14:30:00 15:00:00 Visit [facility] [id number] it y of [place] 4.2.7.2.686 Shawn as MICAH?BLEA [phone] [address] MEDICAL OFFICE BUILDING 2022-05-21 2022-05-21 Outpatient Matthew [facility] [id number] Univers 14:30:00 14:30:00 [facility] 2022-05-19 2022-05-19 Outpatient Matthew [facility] [id number] Univers 14:30:00 14:30:00 DAMIAN [facility] 2022-05-07 2022-05-07 Transition RADHA Loving [id number] Univers 00:00:00 00:00:00 of Care Harry ANDERSON [id number] ity of [place]7.2.[place] [id number] [facility] 403 Branch 2022-04-30 2022-05-04 Inpatient [facility] [id number] Univers 04:39:00 16:30:00 MARIPOSA ity of [facility] 2022-04-30 2022-05-04 Hospital Mariposa Craig [facility] [id number] Univers 04:39:00 16:30:00 Encounter Jayden Cordero QI 350.1.13.10 ity of [place] 4.2.7.2.686 [facility] [id number] [facility] 080 Branch 2022-04-23 2022-04-23 Emergency X [facility] [id number] Univers 17:28:00 19:04:00 JEFF brooks [facility] 2022-04-23 2022-04-23 [facility] [id number] Univers 17:28:00 19:04:00 Jeff BUSBY [id number] i ty of [place] 4.2.7.2.686 [facility] [id number] [facility] 084 Branch 2022-02-11 2022-02-11 Orders Doctor THOMPSON [id number] [id number] Univers 00:00:00 00:00:00 Only Unassigned, JONATHAN [id number] ity of [place] [facility] 4.2.7.2.686 Shawn as [phone] [facility] 009 [place] 2022-02-07 2022-02-07 Orders Doctor THOMPSON 1.2.840.114 [id number] Univers 00:00:00 00:00:00 Only Unassigned, JONATHAN [id number] ity of [place] [facility] 4.2.7.2.686 Shawn as [id number] [facility] 009 Branch 2022-02-03 2022-02-03 Orders Doctor THOMPSON 1.2.840.114 [id number] Univers 00:00:00 00:00:00 Only Unassigned, JONATHAN [id number] ity of [place] [facility] 4.2.7.2.686 Shawn as [id number] [facility] 009 Branch 2022-01-17 2022-01-17 Orders Doctor DONNA [id number] Univers 00:00:00 00:00:00 Only Unassigned, JONATHAN [id number] ity of [place] [facility] 4.2.7.2.686 Shawn as [id number] [address] 2022-01-10 2022-01-10 [facility] [id number] Univers 13:00:00 13:55:59 [facility] 2022-01-10 2022-01-10 Office [facility] [id number] Univers 13:00:00 13:15:00 Visit [facility] [id number] it y of [place] 4.2.7.2.686 Shawn as MICAH?BLEA [phone] [address] MEDICAL OFFICE [facility] 2022-01-10 2022-01-10 [facility] [id number] Univers 13:00:00 13:00:00 [facility] 2021-12-29 2021-12-29 Orders Doctor THOMPSON 1.2.840.114 [id number] Univers 00:00:00 00:00:00 Only Unassigned, JONATHAN 350.1.13.10 ity of [place] [facility] 4.2.7.2.686 Shawn as [id number] [address] 2021-12-20 2021-12-20 Orders Doctor THOMPSON [id number] Univers 00:00:00 00:00:00 Only Unassigned, JONATHAN 350.1.13.10 ity of [place] [facility] 4.2.7.2.686 Shawn as [id number] [address] 2021-12-11 2021-12-11 [facility] [id number] Univers 11:00:00 11:51:30 [facility] 2021-12-11 2021-12-11 Office [facility] 1.2.840.114 [id number] Univers 11:00:00 11:15:00 Visit [facility] [id number] it y of [place] 4.2.7.2.686 Shawn as MICAH?BLEA [phone] [address] OFFICE [facility] 2021-12-11 2021-12-11 Outpatient R [facility] [id number] Univers 11:00:00 11:00:00 DAMIAN ity [facility] [facility] [place] 2021-12-05 2021-12-05 [facility] 1.2.840.114 [id number] Univers 00:00:00 00:00:00 [facility] 350.1.13.10 it y of [place] 4.2.7.2.686 Shawn as MICAH?BLEA [phone] [address] OFFICE [facility] 2021-10-14 2021-10-14 [facility] 1.2.840.114 [id number] Univers 00:00:00 00:00:00 [facility] 350.1.13.10 it y of [place] [facility] 4.2.7.2.686 Shawn as PROFESSIO [phone] [address] ONE 2021-09-11 2021-09-11 Orders Doctor DONNA 1.2.840.114 [id number] Univers 00:00:00 00:00:00 Only Unassigned, JONATHAN 350.1.13.10 ity of [place] [facility] 4.2.7.2.686 Shawn as [phone] [address] 2021-09-03 2021-09-03 [facility] 1.2.840.114 [id number] Univers 00:00:00 00:00:00 [facility] 350.1.13.10 it y of [place] 4.2.7.2.686 Shawn as PROFESSIO [phone] [address] OFFICE [facility] ONE 2021-08-30 2021-08-30 Outpatient R WENCESLAO AZTAMARA [facility] [id number] Univers 13:00:00 13:52:57 DAMIAN brooks [facility] 2021-08-30 2021-08-30 Office Wenceslao [facility] 1.2.840.114 [id number] Univers 13:00:00 13:15:00 Visit [facility] 350.1.13.10 it y of [place] 4.2.7.2.686 Shawn as MICAH?BLEA [phone] [address] MEDICAL OFFICE [facility] 2021-08-30 2021-08-30 Outpatient R WENCESLAO [facility] [id number] Univers 13:00:00 13:00:00 [facility] 2021-08-28 2021-08-28 Outpatient R WENCESLAO [facility] [id number] Univers 15:30:00 15:30:00 [facility] 2021-08-28 2021-08-28 Outpatient R WENCESLAO [facility] [id number] Univers 15:30:00 15:30:00 [facility] 2021-08-28 2021-08-28 Outpatient R WENCESLAO [facility] [id number] Univers 15:30:00 15:30:00 [facility] 2021-08-28 2021-08-28 Outpatient R WENCESLAO [facility] [id number] Univers 15:30:00 15:30:00 [facility] 2021-08-26 2021-08-26 Telephone [facility] 1.2.840.114 [id number] Univers 00:00:00 00:00:00 [facility] 350.1.13.10 it y of [place] 4.2.7.2.686 Shawn as MICAH?BLEA [phone] [address] OFFICE [facility] 2021-07-30 2021-07-30 Outpatient R ZIGGY MEJIA [facility] [id number] Univers 13:30:00 13:30:00 ZIGGY MEJIA [facility] 2021-07-30 2021-07-30 Outpatient R ZIGGY MEJIA [facility] [id number] Univers 13:30:00 13:30:00 ZIGGY MEJIA [facility] 2021-07-30 2021-07-30 Outpatient R ZIGGY MEJIA [facility] [id number] Univers 13:30:00 13:30:00 ZIGGY MEJIA [facility] 2021-07-30 2021-07-30 Outpatient R ZIGGY MEJIA [facility] [id number] Univers 13:30:00 13:30:00 ZIGGY MEJIA [facility] 2021-07-18 2021-07-18 Outpatient R IZZY TSAI [facility] [id number] Univers 10:00:00 10:00:00 [facility] 2021-07-15 2021-07-15 [facility] 1.2.840.114 [id number] Univers 00:00:00 00:00:00 [facility] HEALTH 350.1.13.10 it y of [place] 4.2.7.2.686 Shawn as MICAH?BLEA [phone] [address] 2021-07-10 2021-07-10 Telephone [facility] 1.2.840.114 [id number] Univers 00:00:00 00:00:00 [facility] 350.1.13.10 it y of [place] 4.2.7.2.686 Shawn as MICAH?BLEA [phone] [address] 2021-07-09 2021-07-09 Telephone [facility] 1.2.840.114 [id number] Univers 00:00:00 00:00:00 [facility] 350.1.13.10 it y of [place] 4.2.7.2.686 Shawn as MICAH?BLEA [phone] [address] 2021-06-03 2021-06-03 [facility] 1.2.840.114 [id number] Univers 00:00:00 00:00:00 [facility] Health 350.1.13.10 it y of [place] 4.2.7.2.686 Shawn as Micah?Blea [phone] [address] 2021-06-03 2021-06-03 Telephone [facility] 1.2.840.114 [id number] Univers 00:00:00 00:00:00 Ibrahima Busby 350.1.13.10 ity of [place] Profess[place] [phone] Mn dicmaryjo nal [address] 2021-05-27 2021-05-27 [facility] 1.2.840.114 [id number] Univers 00:00:00 00:00:00 Ibrahima Yemi [facility] 350.1.13.10 ity of [place] 4.2.7.2.686 Shawn as Micah?Blea [phone] Mn dicmaryjo [address] Medical Office Building 2021-05-24 2021-05-24 [facility] 1.2.030.392 [id number] Univers 13:57:39 23:59:00 Encounter Ibrahima Busby 350.1.13.10 ity of [place] [phone] [facility] [address] 2021-05-24 2021-05-24 Outpatient Matthew BLAKELYROSIBRAHIMA DIOR [facility] [id number] Univers 13:56:37 13:56:37 IBRAHIMA SOMMER [facility] 2021-05-24 2021-05-24 Outpatient R ROSIBRAHIMA DIOR [facility] [id number] Univers 13:56:37 13:56:37 ROSIBRAHIAM Nance [facility] 2021-05-24 2021-05-24 [facility] 1.2.768.473 [id number] Univers 13:56:37 13:56:37 Encounter Ibrahima Busby 350.1.13.10 ity of [place] 4.2.[place].2.686 [place] [phone] [facility] [address] 2021-05-13 2021-05-13 Outpatient Matthew CAMARENAEIBRAHIMA [facility] [id number] Univers 00:00:00 00:00:00 ROSIBRAHIMA Nance bashircristela [facility] 2021-05-03 2021-05-03 Maddie Billy [facility] 1.2.840.114 [id number] Univers 00:00:00 00:00:00 [facility] 350.1.13.10 it y of [place] 4.2.7.2.686 Shawn as Professio [phone] [facility] 044 [facility] One 2021-05-03 2021-05-03 Maddie Billy [facility] 1.2.840.114 [id number] Univers 00:00:00 00:00:00 [facility] 350.1.13.10 it y of [place] 4.2.7.2.686 Shawn as Professio [phone] [facility] 044 [facility] One 2021-04-23 2021-04-23 Data Center Operator Lab, Ang - Db [facility] 1.2.840.1 [id number] Univers 13:30:12 13:45:12 Visit Ibrahima Sommer [facility] 350.1.13. 10 ity of [place] 4.2.7.2.686 Shawn as Micah?Blea [phone] [facility] 353 [facility] Office Building 2021-04-23 2021-04-23 Office Ros [facility] 1.2.840.114 [id number] Univers 12:51:35 13:28:39 Visit [facility] 350.1.13.10 ity of [place] 4.2.7.2.686 Shawn as Micah?Blea [phone] [facility] 092 [facility] Office [facility] 2021-04-23 2021-04-23 Outpatient IBRAHIMA HERRERA [facility] [id number] Univers 11:20:00 11:20:00 IBRAHIMA SOMMER [facility] 2021-04-16 2021-04-16 Outpatient IBRAHIMA HERRERA [facility] [id number] Univers 10:40:00 10:40:00 IBRAHIMA SOMMER cristela [facility] 2021-03-28 2021-03-28 Outpatient IBRAHIMA HERRERA [facility] [id number] Univers 11:00:00 11:00:00 IBRAHIMA SOMMER cristela [facility] 2021-03-22 2021-03-22 Reflul Billy [facility] 1.2.840.114 [id number] 00:00:00 00:00:00 [facility] 350.1.13.10 [place] 4.2.7.2.686 Professio [phone] [place] [address] Office Building One 2021-03-22 2021-03-22 [facility] 1.2.840.114 [id number] Univers 00:00:00 00:00:00 [facility] 350.1.13.10 it y of [place] 4.2.7.2.686 Shawn as Professio [phone] [address] Office [facility] One 2021-03-21 2021-03-21 [facility] 1.2.840.114 [id number] [facility] 00:00:00 00:00:00 [facility] 350.1.13.10 it y of [place] 4.2.7.2.686 Shawn as Professio [phone] [address] Office [facility] One 2021-03-21 2021-03-21 [facility] 1.2.840.114 [id number] 00:00:00 00:00:00 [facility] 350.1.13.10 [place] 4.2.7.2.686 Professio [phone] [place] [address] Office Building One 2021-02-26 2021-02-26 [facility] 1.2.055.958 [id number] Univers 16:37:25 23:59:00 Encounter Ibrahima Busby 350.1.13.10 ity of [place] 4.2.7.2.686 [facility] [phone] [facility] [address] [place] 2021-02-26 2021-02-26 [facility] 1.2.840.114 [id number] Univers 16:36:33 16:36:33 Encounter Zana Busby 350.1.13.10 ity of [place] 4.2.7.2.686 [facility] [phone] [facility] [address] 2021-02-26 2021-02-26 [facility] 1.2.044.381 [id number] Univers 16:36:21 16:36:21 Encounter Ibrahima Bragg Qi 350.1.13.10 ity of [place].2.[place] [phone] [facility] [address] 2021-02-26 2021-02-26 Outpatient IBRAHIMA HERRERA [facility] [id number] Univers 15:00:00 15:57:07 IBRAHIMA SOMMER bashircristela [facility] 2021-02-26 2021-02-26 Outpatient IBRAHIMA HERRERA [facility] [id number] Univers 15:00:00 15:57:07 IBRAHIMA SOMMER bashircristela [facility] 2021-02-26 2021-02-26 Outpatient IBRAHIMA HERRERA [facility] [id number] Univers 15:00:00 15:57:07 ROSIBRAHIMA Nance todd [facility] 2021-02-26 2021-02-26 Office Ros [facility] 1.2.840.114 [id number] Univers 14:45:21 15:57:07 Visit Ibrahima Busby 350.1.13.10 ity [facility] 4.2.7.2.686 [facility] [phone] Mn dical [address] 2021-02-26 2021-02-26 Office Ros [facility] 1.2.840.114 [id number] 14:45:21 15:57:07 Visit Irbahima Busby 350.1.13.10 [place] 4.2.7.2.686 Professio [phone] [address] 2021-02-26 2021-02-26 Orders Doctor THOMPSON 1.2.840.114 [id number] Univers 00:00:00 00:00:00 Only Unassigned, JONATHAN 350.1.13.10 ity of [place] [facility] 4.2.7.2.686 Shawn as [phone] [facility] [address] 2021-02-08 2021-02-08 Office Wenceslao [facility] 1.2.840.114 [id number] Univers 11:00:38 11:41:35 Visit [facility] 350.1.13.10 it y of [place] 4.2.7.2.686 Shawn as Professio [phone] [facility] [address] [place] Office [facility] One 2021-02-08 2021-02-08 Outpatient R WENCESLAO [facility] [id number] Univers 11:00:00 11:00:00 DAMIAN ity [facility] 2021-02-06 2021-02-06 Telephone [facility] 1.2.840.114 [id number] Univers 00:00:00 00:00:00 [facility] 350.1.13.10 it y of [place] 4.2.7.2.686 Shawn as Professio [phone] [address] Office [facility] One 2021-01-15 2021-01-15 Orders Doctor DONNA 1.2.840.114 [id number] Univers 00:00:00 00:00:00 Only Unassigned, JONATHAN 350.1.13.10 ity of [place] [facility] 4.2.7.2.686 Shawn as [phone] [facility] [address] [place] 2020-12-27 2020-12-27 Telephone [facility] 1.2.840.114 [id number] Univers 00:00:00 00:00:00 [facility] 350.1.13.10 it y of [place] 4.2.7.2.686 Shawn as Professio [phone] [address] Office [facility] One 2020-12-13 2020-12-13 Radha De La Cruz 1.2.840.114 [id number] Univers 00:00:00 00:00:00 Management Margie Anderson 350.1.13.10 ity of [place]2.[place].2.[place] [phone] [facility] [address] 2020-12-11 2020-12-11 Outpatient R TONYA [facility] [id number] Univers 14:17:31 23:59:00 JOEY brooks [facility] 2020-12-11 2020-12-11 Outpatient TONYA [facility] [id number] Univers 14:17:31 23:59:00 JOEY itcristela [facility] 2020-12-11 2020-12-11 [facility] 1.2.840.114 [id number] Univers 14:17:31 23:59:00 Encounter [facility] 350.1.13.10 ity of Surgical 4.2.7.2.686 Shawn as Specialti [phone] Me dical es 809 [facility] 2020-12-11 2020-12-11 Office [facility] 1.2.840.114 [id number] Univers 14:05:22 14:20:22 Visit Joey Morgan [facility] 350.1.13.10 it y of Surgical 4.2.7.2.686 Shawn as Specialti [phone] Me dical es 198 [facility] 2020-12-05 2020-12-05 Outpatient R TONYA [facility] [id number] Univers 13:15:00 13:15:00 [facility] 2020-12-05 2020-12-05 [facility]phone [facility] 1.2.840.114 [id number] Univers 00:00:00 00:00:00 Zana [facility] 350.1.13.10 it y of Surgical 4.2.7.2.686 Shawn as Specialti [phone] Mn dical es 198 [facility] 2020-11-09 2020-11-09 Laboratory Lab, Adc Fam Pob I [facility] 1.2. 840.114 [id number] Univers 15:05:03 15:25:03 Only Neida Claudio [facility] 350.1.13.10 ity of [place] 4.2.7.2.686 Shawn as Professio [phone] Mn dical nal [address] [place] Office Building One 2020-11-09 2020-11-09 Outpatient R NEIDA [facility] [id number] Univers 15:00:00 15:19:52 CLAUDIO brooks [facility] 2020-11-09 2020-11-09 Office Wenceslao [facility] 1.2.840.114 [id number] Univers 14:17:20 14:32:20 Visit [facility] 350.1.13.10 it y of [place] 4.2.7.2.686 Shawn as Professio [phone] Mn dical nal [address] [place] [address] Office Building One 2020-11-05 2020-11-05 [facility] 1.2.840.114 [id number] Univers 00:00:00 00:00:00 [facility] 350.1.13.10 it y of [place] 4.2.7.2.686 Shawn as Professio [phone] [facility] nal [address] [place] [address] Office Building One 2020-09-18 2020-09-18 [facility] 1.2.840.114 [id number] Univers 00:00:00 00:00:00 [facility] Health 350.1.13.10 it y of [place] 4.2.7.2.686 Shawn as Professio [phone] Mn dical nal [address] [place] [address] Office Building One 2020-08-17 2020-08-17 Telephone [facility] 1.2.840.114 [id number] Univers 00:00:00 00:00:00 [facility] 350.1.13.10 it y of [place] 4.2.7.2.686 Shawn as Professio [phone] Mn dicnv nal [address] [place] [address] Office [facility] One 2020-08-15 2020-08-15 Office [facility] 1.2.840.114 [id number] Univers 15:29:43 16:05:45 Visit [facility] 350.1.13.10 it y of [place] 4.2.7.2.686 Shawn as Professio [phone] [facility] nal [address] [place] [address] Office [facility] One 2020-08-15 2020-08-15 Outpatient R [facility] [id number] Univers 15:30:00 15:30:00 DAMIAN ity of [facility] 2020-08-15 2020-08-15 Telephone [facility] 1.2.840.114 [id number] Univers 00:00:00 00:00:00 [facility] 350.1.13.10 it y of [place] 4.2.7.2.686 Shawn as Professio [phone] Mn dicnv nal [address] [place] [address] Office Building One 2020-07-20 2020-07-20 Outpatient Matthew ANGUIANO [facility] [id number] Univers 10:00:00 10:00:00 GEORGINA brooks [facility] 2020-07-18 2020-07-18 Outpatient Matthew BILLY [facility] [id number] Univers 14:15:00 14:15:00 DAMIAN brooks [facility] 2020-07-04 2020-07-04 Outpatient Matthew BILLY [facility] [id number] Univers 09:30:00 09:30:00 DAMIAN brooks [facility] 2020-06-20 2020-06-20 Data Center Operator Lab, Adc Fam Pob I [facility] 1.2. 840.114 [id number] Univers 11:09:56 11:18:42 Visit Damian Billy arti [facility] 350.1.13 .10 ity of [place] 4.2.7.2.686 Shawn as Professio [phone] [facility] [address] [place] Office [facility] 2020-06-20 2020-06-20 Office Wenceslao [facility] 1.2.840.114 [id number] Univers 10:10:47 10:40:47 Visit Damian [facility] 350.1.13.10 it y of [place] 4.2.7.2.686 Shawn as Professio [phone] Mn dic[address] Office [facility] 2020-06-20 2020-06-20 Outpatient Matthew BILLY [facility] [id number] Univers 10:15:00 10:15:00 DAMIAN brooks [facility] 2020-05-21 2020-05-21 (TEL) STLMLC STLMLC [id number] Co mmon 00:00:00 00:00:00 [facility] 2020-05-21 2020-05-21 NO CHARGE STLMLC STLMLC [id number] Common 00:00:00 00:00:00 [facility] 2018-11-08 2018-11-08 Outpatient [id number] Common 11:45:00 11:45:00 [employer] [facility] [employer] [facility] Results Test Description Test Time Test Comments Results Result Comments Source MAGNESIUM 2022-05-03 17:09:05 Test Item Value Reference Range Interpretation Comme nts MAGNESIUM (test code = 8001468244) 1.3 mg/dL 1.7-2.4 L Lab Interpretation (test code = 59315-4) Abnormal [facility] METABOLIC PANEL (NA, K, CL, CO2, GLUCOSE, BUN, CREATININE, CA)2022-05-03 17:08:44 Test Item Value Reference Range Interpretation Comments NA (test code = 138 mmol/L 135-145 8230646225) K (test code = 3.2 mmol/L 3.5-5 L 8702734883) CL (test code = 104 mmol/L 98-108 7844548052) CO2 TOTAL (test code = 31 mmol/L 23-31 7060717692) AGAP (test code = 2-16 8762174529) BUN (test code = 9 mg/dL 7-23 2857228991) GLUCOSE (test code = 113 mg/dL 70-110 H 2833842899) CREATININE (test code = 0.39 mg/dL 0.5-1.04 L 0394108981) CALCIUM (test code = 7.2 mg/dL 8.6-10.6 L 6497382315) eGFR (test code = mL/min/1.73m2 2177479870) THI (test code = THI) Association of [...] tests). Lab Interpretation Abnormal (test code = 50497-9) [facility] Arterial Blood Gas.2022-05-01 00:00:20 Test Item Value Reference Range Interpretation Comments PH (test code = 2) 7.35-7.45 PCO2 (test code = See_Comment H [Automate d message] 3741498877) The system [employer] generated this result transmitted ref erence range: 35 - 45 mmHg. The reference r radha was not used to interpret this result as normal/abnor mal. PO2 (test code = See_Comment H [Automated message] 3113832570) The system [employer] generated this result transmitted ref erence range: 80 - 100 mmHg. The reference r radha was not used to interpret this result as normal/abnor mal. HCO3 (test code = See_Comment H [Automate d message] 9902762548) The system [employer] generated this result transmitted ref erence range: 22 - 26 mEq/L. The reference r radha was not used to interpret this result as normal/abnor mal. BE (test code = See_Comment H [Automated message] 3890141956) The system [employer] generated this result transmitted ref erence range: -3.0 - 3 .0 mEq/L. The refe rence range was not u sed to interpret this result as normal/abnor mal. Lab Interpretation (test Abnormal code = 33871-3) [facility] Arterial Blood Gas.2022-04-30 15:53:27 Test Item Value Reference Range Interpretation Comments PH (test code = 2) 7.35-7.45 PCO2 (test code = See_Comment H [Automate d message] 3663731377) The system [employer] generated this result transmitted ref erence range: 35 - 45 mmHg. The reference r radha was not used to interpret this result as normal/abnor mal. PO2 (test code = See_Comment L [Automated message] 9221569248) The system [employer] generated this result transmitted ref erence range: 80 - 100 mmHg. The reference r radha was not used to interpret this result as normal/abnor mal. HCO3 (test code = See_Comment H [Automate d message] 7945258308) The system [employer] generated this result transmitted ref erence range: 22 - 26 mEq/L. The reference r radha was not used to interpret this result as normal/abnor mal. BE (test code = See_Comment H [Automated message] 3154192891) The system [employer] generated this result transmitted ref erence range: -3.0 - 3 .0 mEq/L. The refe rence range was not u sed to interpret this result as normal/abnor mal. Lab Interpretation (test Abnormal code = 80916-2) [facility] BY [id number] 16:25:00Medical Cytology Report Case: [id number] Authorizing Provider: Holly Mckeon Collected: 12/28/2018 0903 MD Delores Ordering Location: [facility] Endoscopy Received: 12/28/2018 1103 Services Pathologist: Salvador Begum MD Specimen: Pancreas PANCREAS CYST FNA BY CLINICIAN (CYTOSPINS AND C ELL BLOCK OF ASPIRATE): - NEGATIVE FOR MALIGNANCY - The mucin stain is negative Signing Pathologist Direct Phone Line: [phone] signed by Salvador Begum MD on 12/29/2018 at 4:25 PMThe mucin stain is negative and the control slide shows positive staining as expected.24690, 46249, 27623Kgru cysts in the pancreas, largest measuring 2.0 cmPANCREAS CYST FNA27 mls in cytorich red;4 cytospins, 1 mucin stain, cell blockCollected: [id number]: 500507Gkd interpretation of this case included the use of immunohistochemistry or special stains. MUCINImmunohistochemistry technical testing was performed at [facility], Pathology Laboratory where it was developed a nd its performance characteristics were determined. It has [...] qualified to perform high complexity clinical laboratory testing.[facility], Department of Pathology, [address] [place] [address] 601[address], UzqrnrUC [facility], [address] [place] [address] 164[address], [facility], [facility], [address] [place] [address] 81770, JIAEQN [id number] 10:28:00Surgical Pathology Report Case: [id number] Authorizing Provider: Holly Mckeon Collected: 12/28/2018 0924 MD Delores Ordering Location: [facility] Endoscopy Received: 12/28/2018 1253 Services Pathologist: Kurtis Luna MD Specimen: Ampulla PART A AMPULLARY BIOPSY:PARTIALLY DENUDED NON-N EOPLASTIC SMALL INTESTINAL MUCOSA WITHOUT SIGNIFICANT HISTOPATHOLOGIC ALTERATION.NEGATIVE FOR DYSPLASIA OR INVASIVE CARCINOMA. Signing Pathologist Direct Phone Line: [phone] signed by Kurtis Luna MD on 12/29/2018 at 10:28 [id number] pancreatic lesionampullaThe container is labeled "ampulla" and consists of a single piece of leung-white tissue measuring 2 x 1 x 1 mm and a single piece of feathery white tissue measuring approximately the same dimension submitted entirely in cassette A. TW/bcPERFORMEDAMYLASE, BODY [id number] 13:26:00 Test Item Value Reference Range Interpretation Comments AMYLASE FLUID (BEAKER) (test code = > U/L 350) Absence of reference range indicates that normals have not been defined.Assay performance has not been validated for this type of specimen.FINE NEEDLE ASPIRATE (FNA) [id number] 13:00:00 Test Item Value Reference Range Interpretation Comments CYTOLOGY RESULT POINTER See Separate Report (BEAKER) (test code = 2629)
[2022-08-25] MEDS ORDERED: LORAZEPAM 1 MG TABLET ONE (23:34)
[2022-08-25 23:58] LABS: Absolute Lymphocytes (CBC) 0.4 K/uL (0.7-4.9); Hematocrit 37.7 % (36.0-45.0); Lymphocytes % 7.8 % (15.3-44.8); MCV 86.9 fL (80-100); MPV 8.6 fL (7.6-11.3); RBC Red Blood Cell Count 4.33 M/uL (3.86-4.86)
[2022-08-26 00:13] LABS: Magnesium 1.7 mg/dL (1.6-2.4); Troponin High Sensitivity 20.5 pg/mL (<58.9)
[2022-08-26 00:28] LABS: SARS-COV-2 RT PCR NEGATIVE (NEGATIVE)
--- NOTE | 2022-08-26 00:53 | ER ---
Nurse's Notes [facility] Name: Mila Whiting Age: 66 yrs Sex: Female : 1955 Arrival Date: 08/25/2022 Time: 22:37 Bed 2 Private MD: Diagnosis: Chronic respiratory failure with hypercapnia;Anxiety disorder, unspecified Presentation: 08/25 22:43 Chief complaint: Patient states: I am feeling anxious and I want something to help me jb4 sleep on my Cpap. EMS states: Pt's cpap was missing a piece and she did not feel comfortable going to sleep so she wanted to be brought to the hospital. Coronavirus screen: At this time, the client does not indicate any symptoms associated with coronavirus-19. Ebola Screen: No symptoms or risks identified at this time. Initial Sepsis Screen: Does the patient meet any 2 criteria? No. Patient's initial sepsis screen is negative. Does the patient have a suspected source of infection? No. Patient's initial sepsis screen is negative. Risk Assessment: Do you want to hurt yourself or someone else? Patient reports no desire to harm self or others. Onset of symptoms was August 25, 2022. Transition of care: patient was not received from another setting of care. 22:43 Method Of Arrival: EMS: [facility] jb 22:43 Acuity: CRISTY 4 jb4 Historical: - Allergies: 22:52 liquid magnesium; jb4 22:52 Stadol; jb4 - PMHx: 22:52 acid reflux; Anxiety; COPD; Home O2 3L NC; Hypertension; spinal stenosis; jb4 - PSHx: 22:52 Cholecystectomy; right ankle sx; hernia repair; jb4 Screenin:53 [facility] ED Fall Risk Assessment (Adult) History of falling in the last 3 months, jb4 including since admission No falls in past 3 months (0 pts) Confusion or Disorientation No (0 pts) Intoxicated or Sedated No (0 pts) Impaired Gait No (0 pts) Mobility Assist Device Used No (0 pt) Altered Elimination No (0 pt) Score/Fall Risk Level 0 - 2 = Low Risk Oriented to surroundings, Maintained a safe environment. Abuse screen: Denies threats or abuse. Nutritional screening: No deficits noted. Tuberculosis screening: No symptoms or risk factors identified. Assessment: 22:53 General: Appears in no apparent distress. uncomfortable, Behavior is cooperative, jb4 anxious. Pain: Complains of pain in buttocks, right foot, right ankle Pain does not radiate. Pain currently is 8 out of 10 on a pain scale. Neuro: Level of Consciousness is awake, alert, obeys commands, Oriented to person, place, time, situation. Cardiovascular: Patient's skin is warm and dry. Respiratory: Airway is patent Respiratory effort is even, unlabored, Respiratory pattern is regular, symmetrical. GI: No signs and/or symptoms were reported involving the gastrointestinal system. : No signs and/or symptoms were reported regarding the genitourinary system. EENT: No signs and/or symptoms were reported regarding the EENT system. Derm: Skin is intact, Skin is pink, warm \T\ dry. Musculoskeletal: Circulation, motion, and sensation intact. Range of motion: intact in all extremities. 08/26 00:34 Reassessment: Patient appears in no apparent distress at this time. Patient and/or jb4 family updated on plan of care and expected duration. Pain level reassessed. Patient is alert, oriented x 3, equal unlabored respirations, skin warm/dry/pink. 01:46 Reassessment: Pt is resting in bed with eyes closed, respirations are even and jb4 unlabored with no s/s of pain or distress noted. Attempted multiple times to wake pt and have them ambulate, pt is lethargic and unable to ambulate at this time. 03:00 Reassessment: Patient appears in no apparent distress at this time. No changes from jb4 previously documented assessment. Patient and/or family updated on plan of care and expected duration. Pain level reassessed. 04:13 Reassessment: Patient appears in no apparent distress at this time. Patient and/or jb4 family updated on plan of care and expected duration. Pain level reassessed. Patient is alert, oriented x 3, equal unlabored respirations, skin warm/dry/pink. Pt being assisted to bed side commode. D/c pending ride home. Vital Signs: 08/25 22:43 BP 156 / 84; Pulse 104; Resp 18; Temp 98.5(O); Pulse Ox 100% on 4 lpm NC; Weight 58.97 jb4 kg (R); Height 5 ft. 1 in. (154.94 cm) (R); Pain 8/10; 08/26 00:34 BP 107 / 58; Pulse 97; Resp 22; Pulse Ox 100% on 4 lpm NC; jb4 01:45 BP 126 / 68; Pulse 99; Resp 18; Pulse Ox 93% on 3 lpm NC; jb4 02:30 BP 111 / 59; Pulse 94; Resp 20; Pulse Ox 92% on 3 lpm NC; jb4 03:15 BP 123 / 55; Pulse 99; Resp 19; Pulse Ox 98% on 3 lpm NC; jb4 04:00 BP 154 / 94; Pulse 101; Resp 18; Pulse Ox 97% on 3 lpm NC; jb4 08/25 22:43 Body Mass Index 24.56 (58.97 kg, 154.94 cm) jb4 ED Course: 08/25 22:37 Patient arrived in ED. mw2 22:42 Zaheer Mendez PA is PHCP. cp 22:42 Stephan Estes MD is Attending Physician. cp 22:43 Mj Dawkins, RN is Primary Nurse. jb4 22:52 Triage completed. jb4 22:52 Arm band placed on right wrist. jb4 22:53 Patient has correct armband on for positive identification. Bed in low position. Call jb4 light in reach. Side rails up X 1. Client placed on continuous cardiac and pulse oximetry monitoring. NIBP monitoring applied. 23:16 XRAY Chest (1 view) In Process Unspecified. EDMS 23:29 COVID-19/FLU A+B Sent. jb4 23:29 Basic Metabolic Panel Sent. jb4 23:29 CBC with Diff Sent. jb4 23:29 Magnesium Sent. jb4 23:29 NT PRO-BNP Sent. jb4 23:30 Troponin HS Sent. jb4 08/26 04:18 No provider procedures requiring assistance completed. Patient did not have IV access jb4 during this emergency room visit. Administered Medications: 08/25 23:34 Drug: Ativan (LORazepam) 1 mg Route: PO; jb4 08/26 00:00 Follow up: Response: No adverse reaction; Marked relief of symptoms; Anxiety decreased jb4 Medication: 08/25 22:53 VIS not applicable for this client. jb4 Outcome: 08/26 00:52 Discharge ordered by . cp 04:18 Discharged to [facility] to wait for ride home. jb4 04:18 Condition: stable 04:18 Discharge instructions given to patient, Instructed on discharge instructions, follow up and referral plans. Demonstrated understanding of instructions, follow-up care. 04:19 Patient left the ED. jb4 Signatures: Dispatcher [employer] EDMS Zaheer Mendez PA PA cp Bryson, James, RN RN jb4 Gume Fairchild mw2 Corrections: (The following items were deleted from the chart) 08/25 22:55 22:43 Chief complaint: EMS states: Pt's cpap was missing a piece and she did not feel jbMarvin comfortable going to sleep so she wanted to be brought to the hospital. jb4 08/26 04:15 04:13 Reassessment: Patient appears in no apparent distress at this time. Patient jb4 and/or family updated on plan of care and expected duration. Pain level reassessed. Patient is alert, oriented x 3, equal unlabored respirations, skin warm/dry/pink. Pt being assisted to bed side commode. jb4
--- NOTE | 2022-08-26 00:54 | EDPHYS ---
Physician Documentation [facility] Name: Mila Whiting Age: 66 yrs Sex: Female : 1955 Arrival Date: 08/25/2022 Time: 22:37 Bed 2 Private MD: ED Physician Stephan Estes HPI: 08/25 22:45 This 66 yrs old Black Female presents to ER via Unassigned with complaints of Shortness cp of Breath. 22:45 The patient has shortness of breath at rest. cp 22:45 Onset: The symptoms/episode began/occurred today. Duration: The symptoms are cp continuous. Associated signs and symptoms: Pertinent positives: anxiety. Patient reports difficulty sleeping tonight and inability to use CPAP because machine is missing a piece that connects the mask. Patient has home oxygen concentrator that is working. Patient denies chest pain. Historical: - Allergies: 22:52 liquid magnesium; jb4 22:52 Stadol; jb4 - PMHx: 22:52 acid reflux; Anxiety; COPD; Home O2 3L NC; Hypertension; spinal stenosis; jb4 - PSHx: 22:52 Cholecystectomy; right ankle sx; hernia repair; jb4 ROS: 22:50 Constitutional: Negative for body aches, chills, fever, poor PO intake. cp 22:50 Eyes: Negative for injury, pain, redness, and discharge. cp 22:50 ENT: Negative for drainage from ear(s), ear pain, sore throat, difficulty swallowing, difficulty handling secretions. 22:50 Cardiovascular: Negative for chest pain, edema, palpitations. 22:50 Respiratory: Positive for shortness of breath, Negative for cough, wheezing. 22:50 Abdomen/GI: Negative for abdominal pain, vomiting, diarrhea, constipation. 22:50 Neuro: Negative for altered mental status, dizziness, headache, numbness, weakness. 22:50 Psych: Positive for anxiety. 22:50 All other systems are negative. Exam: 22:55 Constitutional: The patient appears in no acute distress, alert, awake, cp non-diaphoretic, non-toxic, well developed, well nourished, anxious. 22:55 Head/Face: Normocephalic, atraumatic. cp 22:55 Eyes: Periorbital structures: appear normal, Conjunctiva: normal, no exudate, no cp injection, Sclera: no appreciated abnormality, Lids and lashes: appear normal, bilaterally. 22:55 ENT: External ear(s): are unremarkable, Nose: is normal, Mouth: Lips: moist, Oral cp mucosa: moist, Posterior pharynx: Airway: no evidence of obstruction, patent. 22:55 Neck: ROM/movement: is normal, is supple, without pain, no range of motions limitations. 22:55 Chest/axilla: Inspection: normal. 22:55 Cardiovascular: Rate: tachycardic, Rhythm: regular, Edema: is not appreciated, JVD: is not appreciated. 22:55 Respiratory: the patient does not display signs of respiratory distress, Respirations: labored breathing, that is mild, Breath sounds: decreased breath sounds, that are moderate, throughout, stridor, is not appreciated, wheezing: is not appreciated. 22:55 Abdomen/GI: Exam negative for discomfort, distension, guarding, Inspection: abdomen appears normal. 22:55 Neuro: Orientation: to person, place \T\ time. Mentation: is normal, Motor: moves all fours, strength is normal. 23:32 ECG was reviewed by the Attending Physician. cp Vital Signs: 22:43 BP 156 / 84; Pulse 104; Resp 18; Temp 98.5(O); Pulse Ox 100% on 4 lpm NC; Weight 58.97 jb4 kg (R); Height 5 ft. 1 in. (154.94 cm) (R); Pain 8/10; 08/26 00:34 BP 107 / 58; Pulse 97; Resp 22; Pulse Ox 100% on 4 lpm NC; jb4 01:45 BP 126 / 68; Pulse 99; Resp 18; Pulse Ox 93% on 3 lpm NC; jb4 02:30 BP 111 / 59; Pulse 94; Resp 20; Pulse Ox 92% on 3 lpm NC; jb4 03:15 BP 123 / 55; Pulse 99; Resp 19; Pulse Ox 98% on 3 lpm NC; jb4 04:00 BP 154 / 94; Pulse 101; Resp 18; Pulse Ox 97% on 3 lpm NC; jb4 08/25 22:43 Body Mass Index 24.56 (58.97 kg, 154.94 cm) jb4 MDM: 08/25 23:13 Patient medically screened. cp 08/26 00:45 Data reviewed: vital signs, nurses notes, lab test result(s), EKG, radiologic studies, cp plain films. Test interpretation: by ED physician or midlevel provider: ECG, plain radiologic studies. 00:45 Counseling: I had a detailed discussion with the patient and/or guardian regarding: the cp historical points, exam findings, and any diagnostic results supporting the discharge/admit diagnosis, lab results, radiology results, to return to the emergency department if symptoms worsen or persist or if there are any questions or concerns that arise at home. ED course: Patient denies cough, chills, sore throat, fever. Reports piece of CPAP machine broken and has been unable to use machine for past 2 days. Patient has concentrator for oxygen. Review of records show patient with a baseline serum CO2 of 38. Will discharge to home for continued monitoring. 08/25 22:44 Order name: Basic Metabolic Panel; Complete Time: 00:24 08/26 00:24 Interpretation: Normal except: CL 94; CO2 42; GLUC 138; BUN 6; CRE 0.40. 08/25 22:44 Order name: CBC with Diff; Complete Time: 00:24 08/26 00:39 Interpretation: Normal except: HGB 11.5; MCH 26.4; MCHC 30.4; MISA% 85.6; LYM% 7.8; LYMA cp 0.4. 08/25 22:44 Order name: Magnesium; Complete Time: 00:24 08/25 22:44 Order name: NT PRO-BNP; Complete Time: 00:24 08/25 22:44 Order name: Troponin HS; Complete Time: 00:24 08/25 22:44 Order name: COVID-19/FLU A+B; Complete Time: 00:39 08/25 22:44 Order name: XRAY Chest (1 view) 08/25 22:44 Order name: EKG; Complete Time: 22:45 08/25 22:44 Order name: Cardiac monitoring; Complete Time: 23:29 08/25 22:44 Order name: EKG - Nurse/Tech; Complete Time: 23:29 08/25 22:44 Order name: IV Saline Lock; Complete Time: 23:29 08/25 22:44 Order name: Labs collected and sent; Complete Time: 23:29 08/25 22:44 Order name: O2 Per Protocol; Complete Time: 23:29 cp 08/25 22:44 Order name: O2 Sat Monitoring; Complete Time: 23:29 cp EC/26 23:32 Rate is 98 beats/min. Rhythm is regular. RI interval is normal. QRS interval is normal. cp QT interval is normal. T waves are Inverted in leads aVL, aVR. Interpreted by me. Reviewed by me. Administered Medications: 23:34 Drug: Ativan (LORazepam) 1 mg Route: PO; jb4 08/26 00:00 Follow up: Response: No adverse reaction; Marked relief of symptoms; Anxiety decreased jb4 Disposition: 04:30 Co-signature as Attending Physician, Stephan Estes MD. rn Disposition Summary: 08/26/22 00:52 Discharge Ordered Location: Home cp Problem: chronic cp Symptoms: have improved cp Condition: Stable cp Diagnosis - Chronic respiratory failure with hypercapnia cp - Anxiety disorder, unspecified cp Followup: cp - With: Private Physician - When: 1 - 2 days - Reason: Recheck today's complaints Discharge Instructions: - Discharge Summary Sheet cp - Chronic Respiratory Failure cp - Managing Anxiety, Adult cp Forms: - Medication Reconciliation Form cp - Thank You Letter cp - Antibiotic Education cp - Prescription Opioid Use cp Signatures: Dispatcher [employer] EDMS Stephan Estes MD MD rn Page, Corey, PA PA cp Bryson, James, RN RN jb4
[2022-08-26 04:23] VITALS: TEMP 98.5
[2022-08-26 04:30] VITALS: BP 154/94; O2SAT 97
--- NOTE | 2022-08-26 11:26 | RAD REPORT ---
EXAM DESCRIPTION: XR Chest, 1 View CLINICAL HISTORY: The patient is 66 years old and is Female; SOB TECHNIQUE: Frontal view of the chest. COMPARISON: December 01, 2021. FINDINGS: Lungs: Prominent interstitial markings suggestive of interstitial edema. Patchy bibasilar opacities. Pleural space: Blunting of the costophrenic angles suggestive of bilateral pleural effusions. Left hemidiaphragm is somewhat obscured which can be seen with left pleural effusion, as wel l as left lower lobe consolidation or atelectasis. No pneumothorax. Heart: Unremarkable. Mediastinum: Unremarkable. Bones/joints: Unremarkable. Vasculature: Aortic calcification. IMPRESSION: 1. Prominent interstitial markings suggestive of interstitial edema. 2. Blunting of the costophrenic angles suggestive of bilateral pleural effusions. 3. Patchy bibasilar opacities. 4. Left hemidiaphragm is somewhat obscured which can be seen with left pleural effusion, as well as left lower lobe consolidation or atelectasis. Electronically signed by: Rodney Carpenter MD 08/25/2022 11:35 PM PROGRAM ASSISTANT Due to temporary technical issues with the PACS/Fluency reporting system, reports are being signed by the in house radiologists without review as a courtesy to insure prompt reporting. The interpreting radiologist is fully responsible for the content of the report.
--- NOTE | 2022-08-26 13:38 | EKG ---
Test Date: 2022-08-25 Test Time: 23:25:28 Water Registrar: ANT MEASUREMENT RESULTS: Intervals: Rate: 98 NV: 160 QRSD: 84 QT: 332 QTc: 423 [place]: P: 77 NV: 160 QRS: 77 T: 77 INTERPRETIVE STATEMENTS: Normal sinus rhythm Biatrial enlargement Left ventricular hypertrophy Early repolarization Abnormal ECG Compared to ECG 08/22/2022 12:10:34 Early repolarization now present Sinus tachycardia no longer present Myocardial infarct finding no longer present Electronically Signed On 08-26-22 13:37:05 [employer] by Wilmer Mar
== END 2022-08-26 04:19 | disposition home or self-care (01) ==
LOC: ER 22:27
DX: J96.12 Chronic respiratory failure with hypercapnia (principal); F41.9 Anxiety disorder, unspecified; Z99.81 Dependence on supplemental oxygen; Z20.822 Contact with and (suspected) exposure to COVID-19; J44.9 Chronic obstructive pulmonary disease, unspecified; I10 Essential (primary) hypertension; Z88.6 Allergy status to analgesic agent
CPT/HCPCS: 93005; 85025; 80048; 36415; 83735; 84484; 83880; 0240U; 71045; 99284